=== PATIENT | female | born 1950 | race Caucasian/White ===

== ENCOUNTER 2022-10-06 08:41 | Outpatient (RCR) | payer MEDICARE, OTHER, SELFPAY | END 2022-11-25 16:37 | disposition home or self-care (01) | LOC: PT 08:41 | PROVIDERS: PCP Family Medicine | DX: M17.12 Unilateral primary osteoarthritis, left knee (principal); M23.307 Other meniscus derangements, unspecified meniscus, left knee; M94.20 Chondromalacia, unspecified site; Z98.890 Other specified postprocedural states | CPT/HCPCS: 97110; 97112; 97140; 97161; 97530 ==

== ENCOUNTER 2022-12-02 09:06 | Outpatient (OUT) | payer MEDICARE, OTHER, SELFPAY ==
[2022-12-02 09:15] VITALS: BP 128/74; PULSE 76; RESP 18; TEMP 36.9; O2SAT 96
[2022-12-02 09:20] LABS: Calcium 9.2 mg/dL (8.5-10.1); Estimated GFR (African America >60 (>=60); Estimated GFR (Non-African Ame >60 (>=60)
[2022-12-02] MEDS: DENOSUMAB 60 MG/ML SYRINGE SUBQ (09:38)
--- NOTE | 2022-12-02 09:42 | PC.NURSE ---
Patient is here for Prolia injection, she had her labs drawn which were WNL. She denies any issues or concerns, she tolerated injection well. She was discharged home.
== END 2022-12-02 09:07 | disposition home or self-care (01) ==
LOC: INF 09:06
PROVIDERS: PCP Family Medicine; Visit Provider Family Medicine
DX: M81.0 Age-related osteoporosis without current pathological fracture (principal)
CPT/HCPCS: 36415; 82310; 82565; 96372; J0897

== ENCOUNTER 2023-06-14 13:30 | Outpatient (OUT) | payer MEDICARE, OTHER, SELFPAY ==
[2023-06-14 14:33] LABS: Bilirubin Urine NEGATIVE (NEGATIVE); Blood Urine NEGATIVE (NEGATIVE); Clarity Urine CLEAR (CLEAR); Color Urine LT. YELLOW (YELLOW); Glucose Urine UA NEGATIVE (NEGATIVE); Ketones Urine NEGATIVE (NEGATIVE); Leukocyte Esterase Urine TRACE (NEGATIVE); Nitrite Urine NEGATIVE (NEGATIVE); Protein Urine NEGATIVE (NEG/TRACE); Urobilinogen Urine 0.2 EU/dL (0.2-1.0); pH Urine 6.5 (5.0-9.0)
[2023-06-14 14:43] LABS: RBC Urine NONE SEEN #/HPF (0-2)
[2023-06-14 14:44] LABS: Bacteria Urine NONE SEEN #/HPF (NONE SEEN); Mucus Urine NONE SEEN (NONE SEEN); Squamous Epithelial Cell Urine FEW #/LPF (NONE/RARE); Urine Culture Indicated ALREADY ORDERED
== END 2023-06-14 13:31 | disposition home or self-care (01) ==
LOC: LAB 13:33
PROVIDERS: PCP Family Medicine; Visit Provider Family Medicine
DX: N39.0 Urinary tract infection, site not specified (principal)
CPT/HCPCS: 81001; 87086; 87150; 87186

== ENCOUNTER 2023-06-20 08:38 | Outpatient (OUT) | payer MEDICARE, OTHER, SELFPAY ==
--- OUTSIDE RECORDS SUMMARY | 2023-06-20 08:44 | XMS_ITS | CCD ---
Author Name Unknown Address [address] [facility] [address] [place] [address] Organization [employer] Care Team Providers Care Interactive Media Marketing Strategist Name Role Phone DOE VELEZ Attending Unavailable DOE VELEZ Admitting Unavailable ANDIE FORDE Referring Unavailable ANDIE FORDE Primary Care Unavailable Linda Hall Unavailable GOPIY ., DR CHAVES Primary Care Unavailable HOY ., DR CHAVES Attending Unavailable HOY ., DR CHAVES Admtejas Unavailable HOY ., DR CHAVES Consulting Unavailable HOY ., DR CHAVES Primary Care Unavailable PARUL FITZPATRICK Admitting Unavailable PARUL FITZPATRICK Attending Unavailable PARUL FITZPATRICK Consulting Unavailable HOY ., DR CHAVES Primary Care Unavailable HOY ., DR CHAVES Attending Unavailable HOY ., DR CHAVES Admitting Unavailable HOY ., DR CHAVES Consulting Unavailable EDERRONDAA Admitting Unavailable PARUL FITZPATRICK Attending Unavailable PARUL FITZPATRICK Consulting Unavailable HOY ., DR CHAVES Primary Care Unavailable HOY ., DR CHAVES Attending Unavailable HOY ., DR CHAVES Admitting Unavailable HOY ., DR CHAVES Consulting Unavailable HOY ., DR CHAVES Primary Care Unavailable HOY ., DR CHAVES Admitting Unavailable HOY ., DR CHAVES Attending Unavailable HOY ., DR CHAVES Consulting Unavailable HOY ., DR CHAVES Primary Care Unavailable GRICELDA, DR GRANT Miller Consulting Unavailable HOY ., DR CHAVES Primary Care Unavailable HOY ., DR CHAVES Admitting Unavailable HOY ., DR CHAVES Attending Unavailable HOY ., DR CHAVES Consulting Unavailable HOY ., DR CHAVES Primary Care Unavailable HOY ., DR CHAVES Admitting Unavailable HOY ., DR CHAVES Attending Unavailable HOY ., DR CHAVES Consulting Unavailable ZIEBER, DR GRANT Miller Consulting Unavailable HOY ., DR CHAVES Attending Unavailable HOY ., DR CHAVES Primary Care Unavailable HOY ., DR CHAVES Admitting Unavailable HOY ., DR CHAVES Consulting Unavailable [place], DR LISET Cuadra Consulting Unavailable HOY ., DR CHAVES Primary Care Unavailable HOY ., DR CHAVES Attending Unavailable HOY ., DR CHAVES Admitting Unavailable HOY ., DR CHAVES Consulting Unavailable HOY ., DR CHAVES Attending Unavailable HOY ., DR CHAVES Admitting Unavailable HOY ., DR CHAVES Consulting Unavailable HOY ., DR CHAVES Primary Care Unavailable KARASIK ., DR OWEN Admitting Unavailabl e HOY ., DR CHAVES Primary Care Unavailable KARASIK ., DR OWEN Attending Unavailabl e KARASIK ., DR OWEN Consulting Unavailabl e Emla, Tomás Unavailable PARUL FITZPATRICK Attending Unavailable ALGHOTHANI, ELEONORA Attending Unavailable ALGHOTHANI, ROSELIAD Attending Unavailable FRANK VILLARREAL E Attending Unavailable Elma, Tomás A Admitting Unavailable Hoy, Andie M Primary Care Unavailable Elma, Tomás A Attending Unavailable Elma, Tomás A Admitting Unavailable Hoy, Andie M Primary Care Unavailable Elma, Tomás A Attending Unavailable Elma, Tomás A Admitting Unavailable Hoy, Andie M Primary Care Unavailable Elma, Tomás A Attending Unavailable Hoy, Andie M Primary Care Unavailable Elma, Tomás A Admitting Unavailable Elma, Tomás A Attending Unavailable Allergies Allergy Classification Reported Allergen(s) Allergy Type Date of Onset Reaction(s) Facility Penicillins (antibiotic) (1 source) Penicillin Drug Allergy 1 [facility] Repository Tetracyclines (antibiotic) (1 source) Tetracyclines Drug Allergy 1 [facility] Repository (7 sources) Penicillin Drug Allergy Unknown [employer] Other (8 sources) Tetracycline; Translations: [TETRACYCLINE] Drug Allergy 2 [facility] Repository (2 sources) Penicillins; Translations: [PENICILLINS] Drug allergy (disorder) 4 [facility] Repository (1 source) Tetracycline Drug Allergy 4 [facility] Repository (1 source) Penicillins Drug allergy (disorder) 3 [facility] Repository (1 source) Tetracycline Drug Allergy 3 [facility] Medications Current Medications Medication Drug Class(es) Dates Sig (Normalized) Sig (Original) Aspirin (6 sources) Platelet Aggregation Inhibitor, Nonsteroidal Anti-inflammatory Drug Aspirin Active carvedilol 3.125 mg oral tablet (7 sources) alpha-Adrenergic Cesario, beta-Adrenergic Cesario take 1 tablet by mouth every twelve hours Coreg 3.125 MG 1 tablet with food Orally Twice a day for 30 day(s) Active Handicap placards as directed (5 sources) Start: 09-29-19 Handicap placards as directed as directed as directed as directed for 365 days Sep, Active hydroCHLOROthiazide (7 sources) Thiazide Diuretic hydroCHLOROthi azide Active Iron (6 sources) Iron Active Nitrofurantoin (7 sources) Nitrofuran Antibacterial Nitrofurantoin Activ e Omeprazole (7 sources) Proton Pump Inhibitor Omeprazole Active Vitamin D 1000 UNIT (7 sources) take 1 tablet by mouth once daily Vitamin D 1000 UNIT 1 tablet Orally Once a day for 30 day(s) Active Completed/Discontinued Medications Medication Drug Class(es) Dates Sig (Normalized) Sig (Original) acetaminophen 500 mg oral tablet (6 sources) Start: 09-06-2022 take 2 tablets by mouth every eight hours Acetaminophen 500 MG 2 tablets Orally Every 8 hours for 30 days August, Not-Taking clindamycin 300 mg oral capsule (9 sources) Lincosamide Antibacterial Start: 12-28-2022 take 2 capsules by mouth every hour Clindamycin HCl 300 MG 2 capsules Orally 1 hour prior to procedure for 1 day(s) Dec, Not-Taking Start: 09-09-2022 take 1 capsule by [facility] every twelve hours Clindamycin HCl 300 MG 1 capsule Orally every 12 hrs for 5 days August, Not-Taking cyclobenzaprine hydrochloride 10 mg oral tablet (6 sources) Muscle Relaxant Start: 09-06-2022 take 0.5-1 tablets by mouth every eight hours Cyclobenzaprine HCl 10 MG 1/2 to 1 tab Orally Every 8 hours for 14 days August, Not-Taking docusate sodium 100 mg oral capsule (6 sources) Start: 09-06-2022 take 1 capsule by mouth every twelve hours Colace 100 MG 1 capsule Orally Twice a day for 14 days August, Not-Taking doxycycline hyclate 100 mg oral tablet (6 sources) Tetracycline-class Drug Start: 09-06-2022 take 1 tablet by mouth every twelve hours Doxycycline Hyclate 100 MG 1 tablet Orally Twice a day for 7 days August, Not-Taking methylPREDNISolone 4 mg oral tablet (4 sources) Corticosteroid Start: 2022 Medrol 4 MG as directed Orally for 6 days Oct, Not-Taking oxyCODONE hydrochloride 5 mg oral tablet (6 sources) Opioid Agonist Start: 09-06-2022 take 1 tablet by mouth every four hours as needed for pain oxyCODONE HCl 5 MG 1 tablet Orally Every 4 hours, as needed for pain for 7 days August, Not-Taking traMADol hydrochloride 50 mg oral tablet (6 sources) Opioid Agonist Start: 09-06-2022 take 1 tablet by mouth every four to six hours traMADol HCl 50 MG 1 tablet Orally Every 4-6 hours August, Not-Taking Problems Active Problems Problem Classification Problem Date Documented Da te Episodic/Chronic Cardiac dysrhythmias (4 sources) Ventricular tachycardia; Translations: [VENTRICULAR TACHYCARDIA] Onset: 11-03-2021 Chronic Congestive heart failure; nonhypertensive (1 source) Unspecified diastolic (congestive) heart failure; Translations: [UNSPECIFIED DIASTOLIC HEART FAILURE] Onset: 11-18-2021 Chronic Disorders of lipid metabolism (3 sources) Hyperlipidemia, unspecified; Translations: [Hyperlipidemia] Onset: 10-06-2021 Chronic Essential hypertension (7 sources) Essential (primary) hypertension; Translations: [Hypertensive disorder] Onset: 10-06-2021 Chronic Fluid and electrolyte disorders (4 sources) Hypo-osmolality and hyponatremia; Translations: [HYPO-OSMOLALITY AND HYPONATREMIA] Onset: 08-19-2022 Episodic Heart valve disorders (1 source) Rheumatic tricuspid insufficiency; Translations: [RHEUMATIC TRICUSPID INSUFFICIENCY] Onset: 11-04-2021 Chronic Hypertension with complications and secondary hypertension (1 source) Hypertensive heart disease with heart failure; Translations: [HTN HEART DISEASE W/HEART FAIL] Onset: 11-18-2021 Chronic Joint disorders and dislocations; trauma-related (10 sources) Derangement of posterior horn of medial meniscus due to old tear or injury, left knee; Translations: [Degeneration of cartilage AND/OR meniscus of knee] Onset: 07-11-2022 Chronic Osteoarthritis (10 sources) Osteoarthritis of left knee joint; Translations: [Unilateral primary osteoarthritis, left knee] Chronic Osteoporosis (4 sources) Age-related osteoporosis without current pathological fracture; Translations: [AGE-REL OSTEOPOR W/O CURR PATH FX] Onset: 10-08-2021 Chronic Other bone disease and musculoskeletal deformities (3 sources) Chondromalacia, unspecified site Episodic Other connective tissue disease (4 sources) History of total knee arthroplasty; Translations: [Presence of left artificial knee joint] Chronic Other connective tissue disease (3 sources) Presence of left artificial knee joint Chronic Other connective tissue disease (3 sources) History of left total knee replacement; Translations: [Presence of left artificial knee joint] Chronic Other connective tissue disease (1 source) Synovial cyst of popliteal space [Vick], left knee; Translations: [SYNOVIAL CYST POP SPACE LEFT KNEE] Onset: 07-11-2022 Episodic Other ear and sense organ disorders (1 source) Impacted cerumen, right ear Episodic Other non-traumatic joint disorders (5 sources) Pain in left knee; Translations: [PAIN IN LEFT KNEE] Onset: 09-17-2021 Episodic Other upper respiratory infections (1 source) Acute sinusitis, unspecified Episodic Residual codes; unclassified (4 sources) Obstructive sleep apnea (adult) (pediatric); Translations: [OBSTRUCTIVE SLEEP APNEA] Onset: 10-04-2021 Chronic Residual codes; unclassified (1 source) Other specified postprocedural states Episodic Unclassified (2 sources) Cardiac Clearance Onset: 08-03-2022 Unclassified (1 source) Presence of left artificial knee joint; Translations: [Presence of left artificial knee joint] Onset: 02-27-2023 Unclassified (1 source) Unilateral primary osteoarthritis, left knee; Translations: [Unilateral primary osteoarthritis, left knee] Onset: 09-13-2022 Unclassified (1 source) Encounter for other preprocedural examination; Translations: [Encounter for other preprocedural examination] Onset: 08-24-2022 Unclassified (1 source) Encounter for preprocedural laboratory examination; Translations: [Encounter for preprocedural laboratory examination] Onset: 08-12-2022 Urinary tract infections (7 sources) Urinary tract infectious disease; Translations: [Urinary tract bacterial infections] Episodic Viral infection (1 source) Other viral agents as the cause of diseases classified elsewhere Episodic Past or Other Problems Problem Classification Problem Date Documented Da te Episodic/Chronic Deficiency and other anemia (1 source) Anemia, unspecified; Translations: [ANEMIA UNSPECIFIED] Onset: 10-06-2021 Episodic Diabetes mellitus without complication (1 source) Other abnormal glucose; Translations: [OTHER ABNORMAL GLUCOSE] Onset: 10-06-2021 Episodic Genitourinary symptoms and ill-defined conditions (4 sources) Frequency of micturition; Translations: [FREQUENCY OF MICTURITION] Onset: 04-11-2022 Episodic Headache; including migraine (1 source) Headache; including migraine Malaise and fatigue (4 sources) Other fatigue; Translations: [OTHER FATIGUE] Onset: 11-12-2021 Episodic Other bone disease and musculoskeletal deformities (5 sources) Other specified disorders of bone density and structure, unspecified site; Translations: [OTH D/O BONE DEN STRUCT UNS SITE] Onset: 09-17-2021 Episodic Other disorders of stomach and duodenum (1 source) Functional dyspepsia; Translations: [FUNCTIONAL DYSPEPSIA] Onset: 10-06-2021 Episodic Other gastrointestinal disorders (4 sources) Diarrhea, unspecified; Translations: [DIARRHEA UNSPECIFIED] Onset: 02-02-2022 Episodic Other screening for suspected conditions (not mental disorders or infectious disease) (1 source) Encounter for screening mammogram for malignant neoplasm of breast; Translations: [ENC SCR MAMMO MALIG NEOPLASM BREAST] Onset: 09-17-2021 Episodic Syncope (1 source) Syncope and collapse; Translations: [SYNCOPE AND COLLAPSE] Onset: 10-06-2021 Episodic Results Test Name Value Interpretation Reference Range Facility XR knee LT 2Von 02-27-2023 XR knee LT [address]V [facility] [place] [address] XRay Report Signed Patient: Glenis Perez MR#: [id number] 42 : 1950 Acct:[id number] Age/Sex: 72 / F ADM Date: 02/27/23 Loc: [facility] Room: Type: [facility] CLI Attending Dr: Tomás Wills DO Copies to: Tomás Wills DO Ordering Provider: Tomás Wills DO Date of Service: 02/27/23 XR/XR knee LT 2V: Status post total left knee replacement 2 views LEFT knee plain film COMPARISON: 09/13/22 HISTORY: Status post LEFT total knee arthroplasty ACUTE FINDINGS: None DEGENERATIVE CHANGE: Unremarkable SOFT TISSUE FINDINGS: Unremarkable JOINT EFFUSION: None POSTOP CHANGES: Stable hardware BONE MINERALIZATION: Adequate XR/XR knee LT 2V IMPRESSION: Uncomplicated LEFT knee arthroplasty Impression dictated by: Raúl Woo M.D.02/27/2023 3:08 PM Dictation Location: [place] [address] Transcribed By: [facility] 02/27/23 1508 Dictated By: Raúl Woo DO 02/27/23 1508 Signed By: 02/27/23 1508 Normal [facility] XR knee LT 2V [facility] [employer] Other XR knee LT 2V [facility] [employer] Other XR knee LT 2V [address] [place] [address] [employer] Other XR knee LT 2V [address] [employer] Other XR knee LT 2V XRay Report [employer] Other XR knee LT 2V Signed [employer] Other XR knee LT 2V Patient: Glenis Perez MR#: [id number] [place] [employer] Other XR knee LT 2V [address] [place] [employer] Other XR knee LT 2V : 1950 Acct:[id number] [place] [employer] Other XR knee LT 2V Age/Sex: 72 / F ADM Date: 02/27/23 [place] [employer] Other XR knee LT 2V Loc: [facility] Room: Type : [facility] [employer] Other XR knee LT 2V Attending Dr: Tomás Wills DO [place] [employer] Other XR knee LT 2V Copies to: Tomás Wills DO [employer] Other XR knee LT 2V Ordering Provider: Tomás Wills DO [employer] Other XR knee LT 2V Date of Service: 02/27/23 [employer] Other XR knee LT 2V XR/XR knee LT 2V: Status post total left knee replacement [employer] Other XR knee LT 2V 2 views LEFT knee plain film [employer] Other XR knee LT 2V COMPARISON: 09/13/22 N [employer] Other XR knee LT 2V HISTORY: Status post LEFT total knee arthroplasty [employer] Other XR knee LT 2V ACUTE FINDINGS: None N [employer] Other XR knee LT 2V DEGENERATIVE CHANGE: Unremarkable [employer] Other XR knee LT 2V SOFT TISSUE FINDINGS : Unremarkable [employer] Other XR knee LT 2V JOINT EFFUSION: None N [employer] Other XR knee LT 2V POSTOP CHANGES: Stable hardware [employer] Other XR knee LT 2V BONE MINERALIZATION: Adequate [employer] Other XR knee LT 2V XR/XR knee LT 2V [employer] Other XR knee LT 2V IMPRESSION: Uncomplicated LEFT knee arthroplasty [employer] Other XR knee LT 2V Impression dictated by: Raúl Woo M.D.02/27/2023 3:08 PM [employer] Other XR knee LT 2V Dictation Location: [place] [address] [employer] Other XR knee LT 2V Transcribed By: [facility] 02/27/23 1500 [employer] Other XR knee LT 2V Dictated By: Raúl Woo DO 02/27/23 1501 [employer] Other XR knee LT 2V Signed By: [employer] Other XR knee LT 2V 02/27/23 1503 [employer] Other Office Visiton 01-04-2023 Follow-up visit [id number] Glenis Perez 1950 F Date Provider Department Center 01/04/2023 3848-ELEONORA HERNANDEZ CARD [facility] Family History Problem Relation Age of Onset Heart attack Mother Coronary artery disease Mother Other Brother Family Status - Relation Status Age at Mother Brother Level of Service:25472 [place] OFFICE/OUTPATIENT ESTABLISHED LOW MDM 20-29 MIN Normal [facility] [place] 09-13-2022 L - -------- Specimen: [id number] Received: 09/13/22 Status: LUZ Lynn Num: [id number] Spec Type: Surgical Subm Dr: Tomás Wills DO Tissues: A Joint/Knee (LT KNEE) Procedures: Gross/Micro L4, Decalcification -------- Age/ Patient Sex Location Account Attending Physician -------- Glenis Perez Ann 71/F [place] [id number] Tomás Wills DO -------- SPEC NUM: [id number] RECD: 09/13/22 STATUS: LUZ LYNN NUM: [id number] SETH: 09/13/[address] [facility] [address]: Tomás Wills DO ENTERED: 09/13/[address] [facility] [address]: ANDREW TYPE: Surgical DEPT: S ORDERED: Gross/Micro L4, Decalcification ORDERED: Gross/Micro L4, Decalcification Pathological Diagnosis Left knee, bone and tissue, total knee replacement: - Fragments of bone (gross evaluation only). Clinical Information DJD Gross Description Received in formalin labeled with the patient's name, number and left knee bone and tissue is a 13.5 x 11.5 x 2.7 cm aggregate of ballard-white bone and yellow-antony rubbery tissue. The bone fragments have smooth to granular ballard-locke articular surfaces with eburnation identified. The cut surface of the bone is yellow-ballard, trabecular. A gross photo is taken. Gross examination only. CPT Codes 77225 Gross Photo -------- -------- Specimen: [id number] Received: 09/13/22 Status: LUZ Lynn Num: [id number] Spec Type: Surgical Subm Dr: Tomás Wills DO Tissues: A Joint/Knee (LT KNEE) Procedures: Gross/Micro L4, Decalcification -------- Patient: Glenis Perez [id number] (Continued) -------- Signed (signature on file) Kendra Guzman MD 09/14/22 1033 Normal [facility] XR knee LT 2Von 09-13-2022 XR knee LT 2V [address] [address] XRay Report Signed Patient: Glenis Perez MR#: [id number] 40 : 1950 Acct:[id number] Age/Sex: 71 / F ADM Date: 09/13/22 Loc: [place] Room: Type: [facility] Attending Dr: Tomás Wills DO Copies to: Tomás Wills DO Ordering Provider: Tomás Wills DO Date of Service: 09/13/22 XR/XR knee LT 2V: Total or partial knee, do in PACU XR knee LT 2V 09/13/2022 7:41 AM SIGNS AND SYMPTOMS: Total or partial knee, do in PACU PROTOCOL: Frontal and lateral radiographs of the left knee COMPARISON: 06/22/2022 FINDINGS: There is total left knee arthroplasty hardware. There is no evidence of fracture or hardware complication. Subcutaneous emphysema is noted adjacent soft tissues. XR/XR knee LT 2V IMPRESSION: There is total left knee arthroplasty hardware. There is no evidence of fracture or hardware complication. Impression dictated by: Sameer Guy M.D.09/13/2022 3:01 PM Dictation Location: [place] [address] Transcribed By: [facility] 09/13/22 1501 Dictated By: Sameer Guy II, MD 09/13/22 1500 Signed By: 09/13/22 1501 [facility] PROF CHEM 8 (BAS METB)on Anion gap [Moles/Vol] 10.3 mmol/L Normal [facility] Comment on above: Performed By: #### B MP #### [facility] [address] [place] [address] Dr. Duong Alcaraz Calcium [Mass/Vol] 9.3 mg/dL Normal 8.5-10.1 [facility] Comment on above: Performed By: #### B MP #### [facility] [address] [place] [address] Dr. Duong Alcaraz Chloride [Moles/Vol] 95 mmol/L Critically low 98-107 [facility] Comment on above: Performed By: #### B MP #### [facility] [address] [place] [address] [address] Duong Alcaraz CO2 [Moles/Vol] 30.6 mmol/L Normal 21.0-32.0 [facility] Comment on above: Performed By: #### B MP #### [facility] [address] [place] [address] [address] Duong Alcaraz Creatinine [Mass/Vol] 0.69 mg/dL Normal 0.55-1.02 [facility] Comment on above: Performed By: #### B MP #### [facility] [address] [place] [address] [address] Duong Alcaraz EGFR-AF COMORAN >60 Normal >=60 [facility] Comment on above: Performed By: #### B MP #### [facility] [address] [place] [address] [address] Duong Alcaraz EGFR-NON AF COMORAN >60 Normal >=60 [facility] Comment on above: Performed By: #### B MP #### [facility] [address] [place] [address] [address] Duong Alcaraz Glucose [Mass/Vol] 83 mg/dL Normal 74-106 [facility] Comment on above: Performed By: #### B MP #### [facility] [address] [place] [address] [address] Duong Alcaraz Potassium [Moles/Vol] 3.9 mmol/L Normal 3.5-5.1 [facility] Comment on above: Performed By: #### B MP #### [facility] [address] [place] [address] Dr. Duong Alcaraz Sodium [Moles/Vol] 132 mmol/L Critically low 136-145 [facility] Comment on above: Performed By: #### B MP #### [facility] [address] [place] [address] [address] Duong Alcaraz Urea nitrogen [Mass/Vol] 12.0 mg/dL Normal 7.0-18.0 [facility] Comment on above: Performed By: #### B MP #### [facility] [address] [place] [address] [address] Duong Alcaraz Urea nitrogen/Creatinine [Mass ratio] 17.4 mg/mg Normal [facility] Comment on above: Performed By: #### B MP #### [facility] [address] [place] [address] Dr. Duong Alcaraz CMP with reflex to A1Con Albumin [Mass/Vol] 3.9 g/dL Normal 3.5-5.7 [facility] Comment on above: Performed By: #### C BC, CMP wRFX A1C #### [facility] [address] Albumin/Globulin [Mass ratio] 1.5 {ratio} Normal [facility] Comment on above: Performed By: #### C BC, CMP wRFX A1C #### [facility] [address] ALP [Catalytic activity/Vol] 34 U/L Normal 34-104 [facility] Comment on above: Result Comment: PERF ORMED BY: [place] [address] PATHOLOGIST OPERATOR ASSISTANT I CEMENTING YAMILETH PERRY M.D. Performed By: #### C BC, CMP wRFX A1C #### [facility] [address] ALT [Catalytic activity/Vol] 14 U/L Normal 7-52 [facility] Comment on above: Performed By: #### C BC, CMP wRFX A1C #### [facility] [address] Anion gap [Moles/Vol] 11.1 mmol/L Normal 6.0-15.0 [facility] Comment on above: Performed By: #### C BC, CMP wRFX A1C #### [facility] [address] AST [Catalytic activity/Vol] 18 U/L Normal 13-39 [facility] Comment on above: Performed By: #### C BC, CMP wRFX A1C #### [facility] [address] [place] [id number] [place] Bilirubin [Mass/Vol] 0.6 mg/dL Normal 0.3-1.0 [facility] Comment on above: Performed By: #### C BC, CMP wRFX A1C #### [facility] [address] [place] [id number] [facility] Calcium [Mass/Vol] 8.4 mg/dL Low 8.6-10.3 [facility] Comment on above: Performed By: #### C BC, CMP wRFX A1C #### [facility] [address] [place] [address] Chloride [Moles/Vol] 94 mmol/L Low 98-107 [facility] Comment on above: Performed By: #### C BC, CMP wRFX A1C #### [facility] [address] [place] [address] CO2 [Moles/Vol] 28.0 mmol/L Normal 21.0-31.0 [facility] Comment on above: Performed By: #### C BC, CMP wRFX A1C #### [address] Creatinine [Mass/Vol] 0.68 mg/dL Normal 0.60-1.20 [facility] Comment on above: Performed By: #### C BC, CMP wRFX A1C #### [place] [address] [place] GFR/1.73 sq M.predicted MDRD (S/P/Bld) [Vol rate/Area] mL/min/{1.73_m2} Normal [facility] Comment on above: Performed By: #### C BC, CMP wRFX A1C #### [address] Globulin (S) [Mass/Vol] 2.6 g/dL Normal [facility] Comment on above: Performed By: #### C BC, CMP wRFX A1C #### [address] Glucose [Mass/Vol] 88 mg/dL Normal 70-100 [facility] Comment on above: Performed By: #### C BC, CMP wRFX A1C #### [facility] [address] [place] [address] Potassium [Moles/Vol] 4.1 mmol/L Normal 3.5-5.1 [facility] Comment on above: Performed By: #### C BC, CMP wRFX A1C #### [facility] [address] [place] [address] Protein [Mass/Vol] 6.5 g/dL Normal 6.4-8.9 [facility] Comment on above: Performed By: #### C BC, CMP wRFX A1C #### [facility] [address] Sodium [Moles/Vol] 129 mmol/L Low 136-145 [facility] Comment on above: Performed By: #### C BC, CMP wRFX A1C #### [facility] [address] Urea nitrogen [Mass/Vol] 19 mg/dL Normal 7-25 [facility] Comment on above: Performed By: #### C BC, CMP wRFX A1C #### [facility] [address] Complete Blood Count Auto Di ffon 08-12-2022 Basophils (Bld) [#/Vol] 0.1 10*3/uL Normal 0.0-0.2 [facility] Comment on above: Result Comment: PERF ORMED BY: [place] [address] PATHOLOGIST OPERATOR ASSISTANT I CEMENTING YAMILETH PERRY M.D. Performed By: #### C BC, CMP wRFX A1C #### [place] [address] [place] Basophils/100 WBC (Bld) 1.3 % Normal . [facility] Comment on above: Performed By: #### C BC, CMP wRFX A1C #### [facility] [address] [place] [address] [place] Eosinophils (Bld) [#/Vol] 0.1 10*3/uL Normal 0.0-0.45 [facility] Comment on above: Performed By: #### C BC, CMP wRFX A1C #### [facility] [address] [place] [address] [place] Eosinophils/100 WBC (Bld) 1.6 % Normal . [facility] Comment on above: Performed By: #### C BC, CMP wRFX A1C #### [place] [address] Erythrocyte distribution width (RBC) [Ratio] 13.6 % Normal 11.9-15.3 [facility] Comment on above: Performed By: #### C BC, CMP wRFX A1C #### [address] Hematocrit (Bld) [Volume fraction] 35.9 % Normal 34.0-46.4 [facility] Comment on above: Performed By: #### C BC, CMP wRFX A1C #### [address] Hemoglobin (Bld) [Mass/Vol] 12.6 g/dL Normal 11.8-15.4 [facility] Comment on above: Performed By: #### C BC, CMP wRFX A1C #### [address] Lymphocytes (Bld) [#/Vol] 0.7 10*3/uL Low 1.00-4.8 [facility] Comment on above: Performed By: #### C BC, CMP wRFX A1C #### [address] Lymphocytes/100 WBC (Bld) 14.6 % Normal . [facility] Comment on above: Performed By: #### C BC, CMP wRFX A1C #### [address] MCH (RBC) [Entitic mass] 31.8 pg Normal 24.7-34.3 [facility] Comment on above: Performed By: #### C BC, CMP wRFX A1C #### [address] MCV (RBC) [Entitic vol] 90.7 fL Normal 80-100 [facility] Comment on above: Performed By: #### C BC, CMP wRFX A1C #### [address] Mean Corpuscular HGB Conc 35.0 g/dL Normal 32.0-35.0 [facility] Comment on above: Performed By: #### C BC, CMP wRFX A1C #### [facility] [address] [place] [address] [place] Monocytes (Bld) [#/Vol] 0.5 10*3/uL Normal 0.0-0.8 [facility] Comment on above: Performed By: #### C BC, CMP wRFX A1C #### [facility] [address] [place] [address] [place] Monocytes/100 WBC (Bld) 10.4 % Normal . [facility] Comment on above: Performed By: #### C BC, CMP wRFX A1C #### [facility] [address] [place] [address] [place] Neutrophils (Bld) [#/Vol] 3.7 10*3/uL Normal 1.8-7.7 [facility] Comment on above: Performed By: #### C BC, CMP wRFX A1C #### [facility] [address] [place] [address] Neutrophils/100 WBC (Bld) 72.1 % Normal . [facility] Comment on above: Performed By: #### C BC, CMP wRFX A1C #### [facility] [address] [place] [address] [place] NRBC% 0.0 /100{WBC} Normal 0-0.5 [facility] Comment on above: Performed By: #### C BC, CMP wRFX A1C #### [facility] [address] [place] [address] [place] Platelet mean volume (Bld) [Entitic vol] 6.2 fL Low 6.3-10.7 [facility] Comment on above: Performed By: #### C BC, CMP wRFX A1C #### [facility] [address] [place] [address] [place] Platelets (Bld) [#/Vol] 241 10*3/uL Normal 150-450 [facility] Comment on above: Performed By: #### C BC, CMP wRFX A1C #### [facility] [address] [place] [address] [place] RBC (Bld) [#/Vol] 3.96 10*6/uL Normal 3.60-5.00 [facility] Comment on above: Performed By: #### C BC, CMP wRFX A1C #### [facility] [address] [place] [address] [place] WBC (Bld) [#/Vol] 5.1 10*3/uL Normal 3.8-11.6 [facility] Comment on above: Performed By: #### C BC, CMP wRFX A1C #### [facility] [address] [place] [address] [place] Dipstick and Microscopicon 0 08-12-2022 Appearance (U) Clear Normal Clear [facility] Comment on above: Order Comment: Name Collection Type:: Clean-Voided Midstream Performed By: #### A DDONUAPLUS #### [place] [address] [place] Bacteria,Urine None Seen Normal None Seen [facility] Comment on above: Order Comment: Name Collection Type:: Clean-Voided Midstream Performed By: #### A DDONUAPLUS #### [place] [address] [place] Bilirubin,Urine Negative Normal Negative [facility] Comment on above: Order Comment: Name Collection Type:: Clean-Voided Midstream Performed By: #### A DDONUAPLUS #### [place] [address] [place] Color (U) Yellow Normal Yellow [facility] Comment on above: Order Comment: Name Collection Type:: Clean-Voided Midstream Performed By: #### A DDONUAPLUS #### [place] [address] [place] Glucose Ql (U) Normal Normal Normal [facility] Comment on above: Order Comment: Name Collection Type:: Clean-Voided Midstream Performed By: #### A DDONUAPLUS #### [place] [address] [place] Hyaline Casts,Urine None Seen Normal 0-8 [facility] Comment on above: Order Comment: Name Collection Type:: Clean-Voided Midstream Result Comment: PERF ORMED BY: [place] [address] PATHOLOGIST OPERATOR ASSISTANT I CEMENTING YAMILETH PERRY M.D. Performed By: #### A DDONUAPLUS #### [place] [address] [place] Ketones Ql (U) Negative Normal Negative [facility] Comment on above: Order Comment: Name Collection Type:: Clean-Voided Midstream Performed By: #### A DDONUAPLUS #### [place] [address] [place] Leukocyte esterase Test strip Ql (U) 3+ High Negative [facility] Comment on above: Order Comment: Name Collection Type:: Clean-Voided Midstream Performed By: #### A DDONUAPLUS #### [place] [address] [place] Nitrite,Urine Negative Normal Negative [facility] Comment on above: Order Comment: Name Collection Type:: Clean-Voided Midstream Performed By: #### A DDONUAPLUS #### [place] [address] [place] Occult Blood,Urine Negative Normal Negative [facility] Comment on above: Order Comment: Name Collection Type:: Clean-Voided Midstream Result Comment: PERF ORMED BY: [place] [address] PATHOLOGIST OPERATOR ASSISTANT I CEMENTING YAMILETH PERRY M.D. Performed By: #### A DDONUAPLUS #### [place] [address] [place] pH (U) 7.0 [pH] Normal 5.0-9.0 [facility] Comment on above: Order Comment: Name Collection Type:: Clean-Voided Midstream Performed By: #### A DDONUAPLUS #### [place] [address] [place] Protein,Urine Negative Normal Negative [facility] Comment on above: Order Comment: Name Collection Type:: Clean-Voided Midstream Performed By: #### A DDONUAPLUS #### [facility] [address] [place] [address] RBC LM.HPF (Urine sed) [#/Area] 0 /[HPF] Normal 0-4 [facility] Comment on above: Order Comment: Name Collection Type:: Clean-Voided Midstream Performed By: #### A DDONUAPLUS #### [facility] [address] [place] [address] Specificy [place],Urine 1.007 Normal 1.001-1.030 [facility] Comment on above: Order Comment: Name Collection Type:: Clean-Voided Midstream Performed By: #### A DDONUAPLUS #### [facility] [address] [place] [address] Squamous Epithelial Cell,Urine None Seen Normal 0-2 [facility] Comment on above: Order Comment: Name Collection Type:: Clean-Voided Midstream Performed By: #### A DDONUAPLUS #### [facility] [address] [place] [address] Urobilinogen,Urine Normal Normal Normal [facility] Comment on above: Order Comment: Name Collection Type:: Clean-Voided Midstream Performed By: #### A DDONUAPLUS #### [facility] [address] [place] [address] WBC,Urine 3-4 Normal 0-4 [facility] Comment on above: Order Comment: Name Collection Type:: Clean-Voided Midstream Performed By: #### A DDONUAPLUS #### [facility] [address] [place] [address] Office Visiton 08-03-2022 Follow-up visit [id number] Glenis Perez 1950 F Date Provider Department Center 08/03/2022 Jill-PARUL FITZPATRICK Family History Problem Relation Age of Onset Heart attack Mother Coronary artery disease Mother Other Brother Family Status - Relation Status Age at Mother Brother Level of Service:[address] [place] OFFICE/OUTPATIENT ESTABLISHED MOD MDM 30-39 MIN Reason for Visit and Comments: Follow-up [702149] - 4 months Cardiac Clearance [Other] - Left knee replacement scheduled for 08/30/22 Normal [facility] MRI KNEE LT WO CONon 07-04-2 023 MRI KNEE LT WO CON EXAMINATION: MRI KNE E LT WO CON HISTORY: Pain in left knee ; chronic COMPARISON: No relevant comparison available. TECHNIQUE: A complete multi-planar MRI was performed. FINDINGS: MEDIAL COMPARTMENT MEDIAL MENISCUS: Undersurface tear involving posterior horn and junction with slight maceration of the posterior horn. The body meniscus is extruded from the joint space resulting in narrowing of the joint space. CARTILAGE: Thinning with suspected focal defect overlying the weightbearing surface of femoral condyle resulting in mild subchondral edema. BONES: Small degenerative osteophytes along the outer articular margins of the femoral condyle and tibial plateau. MCL AND MEDIAL CAPSULE: Grade I sprain of the medial collateral ligament. LATERAL COMPARTMENT LATERAL MENISCUS: Body meniscus is extruded from the joint space. Anterior junction and horn are not visible. CARTILAGE: Thinning without focal defect. BONES: Small degenerative osteophytes along the articular margins of femoral condyle and tibial plateau. LCL/POSTEROLAT COMPLEX: Normal lateral collateral ligament, fascicles, lateral capsule and ligaments. ANTERIOR COMPARTMENT PATELLA: Small periarticular osteophytes. CARTILAGE: Moderate thinning without focal defect. TENDONS: Normal. EFFUSION: Small joint effusion. ACL: Normal appearing ligament. PCL: Normal appearing ligament. MENISCOFEMORAL: Normal meniscofemoral ligaments. OTHER: Large Vick's cyst, 8.4 x 3.3 x 2.3 cm. IMPRESSION: 1. Prominent undersurface tear of the medial meniscus posterior horn and junction with slight maceration of the posterior horn. 2. Complete loss of the anterior horn and anterior junction of the lateral meniscus, with relatively unremarkable body and posterior horn. 3. 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 4. Small joint effusion. 5. Large Vick's cyst. Electronically authenticated by: GRANT ORTEGA Date: 2022-07-04 12:13 Normal [facility] Office Visiton 05-04-2022 Follow-up visit [id number] Glenis Perez 1950 F Date Provider Department Center 05/04/2022 3848-ELEONORA HERNANDEZ [facility] Family History Problem Relation Age of Onset Heart attack Mother Coronary artery disease Mother Other Brother Family Status - Relation Status Age at Mother Brother Level of Service:42837 [place] OFFICE/OUTPATIENT ESTABLISHED LOW MDM 20-29 MIN Reason for Visit and Comments: Hypertension [877392] NSVT [Other] Hyperlipidemia [182] Normal [facility] COVID/FLU/RSV RT-PCRon 04-22 SARS-CoV-2 (COVID-19) RNA CASH+probe Ql (Unsp spec) Negative Single Digits [facility] [employer] Other COVID/FLU/RSV RT-PCR Negative [employer] Other CULTURE URINEon 04-14-2022 CULTURE URINE Isolate 1 Escherichia coli 25,000 cfu/mL of ORGANISM 1 Escherichia coli ANTIBIOTIC M.I.C RX STATUS Ampicillin <=2 S F Ampicillin/Sulbactam <=2 S F Piperacillin/Tazobact am <=4 S F Cefazolin <=4 S F Ceftazidime <=1 S F Ceftriaxone <=1 S F Ertapenem <=0.5 S F Imipenem <=0.25 S F Amikacin <=2 S F Gentamicin <=1 S F Tobramycin <=1 S F Ciprofloxacin <=0.25 S F Levofloxacin <=0.12 S F Nitrofurantoin <=16 S F Trimethoprim/Sulfamet hoxazole <=20 S F Normal [facility] Comment on above: Performed By: #### U RCX ####[facility] [address] [place] [address]Dr. Duong Alcaraz CALCIUMon 04-01-2022 Calcium [Mass/Vol] 9.4 mg/dL Normal 8.5-10.1 [facility] Comment on above: Performed By: #### C A, CREA ####[facility] [address] [address]Dr. Duong Alcaraz CREATININEon 04-01-2022 Creatinine [Mass/Vol] 0.73 mg/dL Normal 0.55-1.02 [facility] Comment on above: Performed By: #### C A, CREA ####[facility] [address] [place] [address]Dr. Duong Alcaraz EGFR-AF COMORAN >60 Normal >=60 [facility] Comment on above: Performed By: #### C A, CREA ####[facility] [address] [place] [address]Dr. Duong Alcaraz EGFR-NON AF COMORAN >60 Normal >=60 [facility] Comment on above: Performed By: #### C A, CREA ####[facility] [address] [place] [address]Dr. Duong Alcaraz PROF CHEM 8 (BAS METB)on Anion gap [Moles/Vol] 12.5 mmol/L Normal [facility] Comment on above: Performed By: #### B MP #### [facility] [address] [address] [address] Duong Alcaraz Calcium [Mass/Vol] 8.8 mg/dL Normal 8.5-10.1 [facility] Comment on above: Performed By: #### B MP #### [facility] [address] [place] [address] [address] Duong Alcaraz Chloride [Moles/Vol] 95 mmol/L Critically low 98-107 [facility] Comment on above: Performed By: #### B MP #### [facility] [address] [address] [address] Duong Alcaraz CO2 [Moles/Vol] 27.3 mmol/L Normal 21.0-32.0 [facility] Comment on above: Performed By: #### B MP #### [facility] [address] [address] [address] Duong Alcaraz Creatinine [Mass/Vol] 0.68 mg/dL Normal 0.55-1.02 [facility] Comment on above: Performed By: #### B MP #### [facility] [address] [address] [address] Duong Alcaraz EGFR-AF COMORAN >60 Normal >=60 [facility] Comment on above: Performed By: #### B MP #### [facility] [address] [address] [address] Duong Alcaraz EGFR-NON AF COMORAN >60 Normal >=60 [facility] Comment on above: Performed By: #### B MP #### [facility] [address] [address] [address] Duong Alcaraz Glucose [Mass/Vol] 98 mg/dL Normal 74-106 [facility] Comment on above: Performed By: #### B MP #### [facility] [address] [address] [address] Duong Alcaraz Potassium [Moles/Vol] 3.8 mmol/L Normal 3.5-5.1 [facility] Comment on above: Performed By: #### B MP #### [facility] [address] [address] [address] Duong Alcaraz Sodium [Moles/Vol] 131 mmol/L Critically low 136-145 [facility] Comment on above: Performed By: #### B MP #### [facility] [address] [place] [address] Dr. Duong Alcaraz Urea nitrogen [Mass/Vol] 14.0 mg/dL Normal 7.0-18.0 [facility] Comment on above: Performed By: #### B MP #### [facility] [address] [place] [address] Dr. Duong Alcaraz Urea nitrogen/Creatinine [Mass ratio] 20.6 mg/mg Normal [facility] Comment on above: Performed By: #### B MP #### [facility] [address] [place] [address] Dr. Duong Alcaraz BNPon 11-12-2021 Natriuretic peptide B (Bld) [Mass/Vol] 151.0 pg/mL Normal <=900.0 [facility] Comment on above: Performed By: #### C MP, BNP #### [facility] [address] [place] [address] Dr. Duong Alcaraz CBC AUTO DIFFon 11-12-2021 BASO # 0.1 103/ul Normal 0.0-0.1 [facility] Comment on above: Performed By: #### C BC ####[facility] [address] [place] [address]Dr. Duong Alcaraz Basophils/100 WBC (Bld) 1.3 % Normal 0.2-2.0 [facility] Comment on above: Performed By: #### C BC ####[facility] [address] [place], [place] [address]Dr. Duong Alcaraz EO # 0.2 103/ul Normal 0.0-0.7 [facility] Comment on above: Performed By: #### C BC ####[facility] [address] [place], [place] [address]Dr. Duong Alcaraz Eosinophils/100 WBC (Bld) 4.4 % Normal 0.9-7.0 [facility] Comment on above: Performed By: #### C BC ####[facility] [address] [place], [place] [address]Dr. Duong Alcaraz Erythrocyte distribution width (RBC) [Ratio] 12.3 % Normal 11.0-15.0 [facility] Comment on above: Performed By: #### C BC ####[facility] [address] [place], [place] [address]Dr. Duong Alcaraz Hematocrit (Bld) [Volume fraction] 36.4 % Normal 36.0-48.0 [facility] Comment on above: Performed By: #### C BC ####[facility] [address] [place], [place] [address]Dr. Selenastevo Alcaraz Hemoglobin (Bld) [Mass/Vol] 12.8 g/dL Normal 12.0-16.0 [facility] Comment on above: Performed By: #### C BC ####[facility] [address] [place], [place] [address]Dr. Duong Alcaraz IG # 0.02 10e3/ul Normal 0.00-0.03 [facility] Comment on above: Performed By: #### C BC ####[facility] [address] [place], [place] [address]Dr. Duong Alcaraz IG % 0.5 % Normal 0.0-0.5 [facility] Comment on above: Performed By: #### C BC ####[facility] [address] [place], [place] [address]Dr. Duong Alcaraz LYMPH # 0.8 103/ul Critically low 1.2-3.8 [facility] Comment on above: Performed By: #### C BC ####[facility] [address] [place] [address]DrClovis Alcaraz Lymphocytes/100 WBC (Bld) 19.5 % Critically low 20.5-60.0 [facility] Comment on above: Performed By: #### C BC ####[facility] [address] [place] [address]DrClovis Alcaraz MANUAL DIFF REQ NO Normal [facility] Comment on above: Performed By: #### C BC ####[facility] [address] [place] [address]DrClovis Alcaraz MCH (RBC) [Entitic mass] 31.7 pg Normal 26.7-34.0 [facility] Comment on above: Performed By: #### C BC ####[facility] [address] [place], [place] [address]DrClovis Alcaraz MCHC (RBC) [Mass/Vol] 35.2 g/dL Normal 29.9-35.2 [facility] Comment on above: Performed By: #### C BC ####[facility] [address] [place], [place] [address]DrClovis Alcaraz MCV (RBC) [Entitic vol] 90.1 fL Normal 81.0-99.0 [facility] Comment on above: Performed By: #### C BC ####[facility] [address] [place], [place] [address]DrClovis Alcaraz MONO # 0.5 103/ul Normal 0.3-0.8 [facility] Comment on above: Performed By: #### C BC ####[facility] [address] [place], [place] [address]DrClovis Alcaraz Monocytes/100 WBC (Bld) 12.3 % Critically high 1.7-12.0 [facility] Comment on above: Performed By: #### C BC ####[facility] [address] [place], [place] [address]DrClovis Alcaraz NEUT # 2.4 103/ul Normal 1.4-6.5 [facility] Comment on above: Performed By: #### C BC ####[facility] [address] [address]Dr. Duong Alcaraz Neutrophils/100 WBC (Bld) 62.0 % Normal 43.0-75.0 [facility] Comment on above: Performed By: #### C BC ####[facility] [address] [place] [id number] Alcaraz Platelet mean volume (Bld) [Entitic vol] 7.8 fL Critically low 9.5-13.5 [facility] Comment on above: Performed By: #### C BC ####[facility] [address] [place] [address]DrClovis Alcaraz PLT 183 103/ul Normal 150-450 [facility] Comment on above: Performed By: #### C BC ####[facility] [address] [place] [id number] Alcaraz RBC 4.04 106/ul Critically low 4.20-5.40 [facility] Comment on above: Performed By: #### C BC ####[facility] [address] [place] [id number] Alcaraz WBC 3.9 103/ul Critically low 4.0-11.0 [facility] Comment on above: Performed By: #### C BC ####[facility] [address] [place] [id number]. Duong Alcaraz PROF 14(COMP METB)on 022 Albumin [Mass/Vol] 3.4 g/dL Normal 3.4-5.0 [facility] Comment on above: Performed By: #### C MP, BNP #### [facility] [address] [address] [address] Duong Alcaraz Albumin/Globulin [Mass ratio] 0.9 {ratio} Normal [facility] Comment on above: Performed By: #### C MP, BNP #### [facility] [address] [address] [address] Duong Alcaraz ALP [Catalytic activity/Vol] 33 U/L Critically low 46-116 [facility] Comment on above: Performed By: #### C MP, BNP #### [facility] [address] [place] [address] Dr. Duong Alcaraz ALT [Catalytic activity/Vol] 21 U/L Normal 14-59 [facility] Comment on above: Performed By: #### C MP, BNP #### [facility] [address] [place] [address] Dr. Duong Alcaraz Anion gap [Moles/Vol] 8.0 mmol/L Normal [facility] Comment on above: Performed By: #### C MP, BNP #### [facility] [address] [place] [address] Dr. Duong Alcaraz AST [Catalytic activity/Vol] 26 U/L Normal 15-37 [facility] Comment on above: Performed By: #### C MP, BNP #### [facility] [address] [place] [address] Dr. Duong Alcaraz Bilirubin [Mass/Vol] 0.6 mg/dL Normal 0.2-1.0 [facility] [place] Comment on above: Performed By: #### C MP, BNP #### [facility] [address] [place] [address] Dr. Duong Alcaraz Calcium [Mass/Vol] 8.8 mg/dL Normal 8.5-10.1 [facility] Comment on above: Performed By: #### C MP, BNP #### [facility] [address] [place] [address] Dr. Duong Alcaraz Chloride [Moles/Vol] 98 mmol/L Normal 98-107 [facility] [place] Comment on above: Performed By: #### C MP, BNP #### [facility] [address] [place] [address] Dr. Duong Alcaraz CO2 [Moles/Vol] 29.7 mmol/L Normal 21.0-32.0 [facility] Comment on above: Performed By: #### C MP, BNP #### [facility] [address] [place] [address] Dr. Duong Alcaraz Creatinine [Mass/Vol] 0.71 mg/dL Normal 0.55-1.02 [facility] [place] Comment on above: Performed By: #### C MP, BNP #### [facility] [address] [place] [address] Dr. Duong Alcaraz EGFR-AF COMORAN >60 Normal >=60 [facility] Comment on above: Performed By: #### C MP, BNP #### [facility] [address] [address] [address] Duong Alcaraz EGFR-NON AF COMORAN >60 Normal >=60 [facility] [place] Comment on above: Performed By: #### C MP, BNP #### [facility] [address] [place] [address] Dr. Duong Alcaraz Globulin (S) [Mass/Vol] 3.8 g/dL Normal [facility] [place] Comment on above: Performed By: #### C MP, BNP #### [facility] [address] [place] [address] Dr. Duong Alcaraz Glucose [Mass/Vol] 94 mg/dL Normal 74-106 [facility] Comment on above: Performed By: #### C MP, BNP #### [facility] [address] [place] [address] Dr. Duong Alcaraz Potassium [Moles/Vol] 3.7 mmol/L Normal 3.5-5.1 [facility] [place] Comment on above: Performed By: #### C MP, BNP #### [facility] [address] [place] [address] Dr. Duong Alcaraz Protein [Mass/Vol] 7.2 g/dL Normal 6.4-8.2 [facility] Comment on above: Performed By: #### C MP, BNP #### [facility] [address] [place] [address] Dr. Duong Alcaraz Sodium [Moles/Vol] 132 mmol/L Critically low 136-145 [facility] Comment on above: Performed By: #### C MP, BNP #### [facility] [address] [place] [address] Dr. Duong Alcaraz Urea nitrogen [Mass/Vol] 14.0 mg/dL Normal 7.0-18.0 [facility] [place] Comment on above: Performed By: #### C MP, BNP #### [facility] [address] [place], [place] [address] Dr. Duong Alcaraz Urea nitrogen/Creatinine [Mass ratio] 19.7 mg/mg Normal [facility] [place] Comment on above: Performed By: #### C MP, BNP #### [facility] [address] [place], [place] [address] Dr. Duong Alcaraz ECHOCARDIO M/2D COMPLETEon 0 11-03-2021 ECHOCARDIO M/2D COMPLETE Patient: GLENIS PEREZ Exam Date: 11/03/2021 : 1950 Gender:F Ordering : PARUL FITZPATRICK Admission #: [id number] Family : DR ANDIE FORDE . Order #: [id number] CLICK HERE TO VIEW EXAM ECHOCARDIOGRAM REPORT PROCEDURE: CARDIO PULMONARY ECHOCARDIO M/2D COMP INDICATIONS: Nonsustained ventricular tachycardia, RICK COMPARISON: None. DESCRIPTION: COMPLETE ECHOCARDIOGRAM Real-time transthoracic echocardiography with 2D, M-mode, spectral and color flow Doppler performed. QUALITY: Technical quality was good. No PVCs during exam. 63 155# 126/70 HR 70 LEFT VENTRICLE: Normal chamber size. Proximal septal hypertrophy (sigmoid septum). Global left ventricular systolic function is normal. No regional wall motion abnormality. LV EF: Visual estimation of left ventricular ejection fraction is 65%. DIASTOLIC: Diastolic function is indeterminate. ATRIAL SEPTUM: Intact atrial septum. The interatrial septum bows into the right atrium. LEFT ATRIUM: Severe dilatation. RIGHT ATRIUM: Normal chamber size. RIGHT VENTRICLE: Mild dilatation. Normal right ventricular systolic function. TRICUSPID VALVE: Normal mobility and thickness. Normal with mild regurgitation. No evidence of pulmonary hypertension. RVSP is 30 mmHg. MITRAL VALVE: Normal mobility and thickness. No evidence of mitral valve stenosis. Trivial mitral regurgitation. AORTIC VALVE: Normal trileaflet appearance. No evidence of aortic valve stenosis. No aortic regurgitation. AORTIC ROOT: Normal diameter and appearance. Ascending aorta is normal in size. Aortic arch is normal in size. PULMONIC VALVE: Normal thickness and mobility. No stenosis. Trivial regurgitation. PERICARDIUM: No evidence of pericardial effusion. IVC: Collapses with inspirations. IVC is normal in size. PLEURA: CONCLUSION: 1. Normal ventricular systolic function. LVEF is 65%. 2. Mild tricuspid regurgitation. 3. Severe left atrial dilatation. The interatrial septum bows to the right, suggestive of elevated left atrial pressure. 4. Normal right-sided pressures. Adult Echocardiography Procedure Report Left Ventricle Left Atrium Mitral Valve Right Ventricle Aorta Aortic Valve Peak Velocity (Antegrade Flow): 1.10 m/s AoV Area (Peak Hai): 2.90 cm2, 2.90 cm2 Peak Velocity(Antegrade Flow): 1.10 m/s Peak Gradient(Antegrade Flow): 4.80 mm[Hg] Tricuspid Valve Peak Velocity (Regurgitant Flow): 2.17 m/s, 2.61 m/s Peak Velocity: 0.42 m/s Pulmonic Valve PV Max Hai (0.6 - 0.9 m per sec): 0.93 m/s PV Max Gradient: 3.43 mm[Hg] Right Atrium Dictated by: Federico Riley M.D. on 11/03/2021 at 21:30 Approved by: Federico Riley M.D. on 11/03/2021 at 21:34 Normal [facility] BNPon 10-04-2021 Natriuretic peptide B (Bld) [Mass/Vol] 200.0 pg/mL Normal <=900.0 [facility] Comment on above: Performed By: #### B FREIGHT BREAKER, TSH, LIPID, CMP, T7 ####[facility] [id number] [place], [place] [address]DbDr. Duong Alcaraz CBC AUTO DIFFon 10-04-2021 BASO # 0.1 103/ul Normal 0.0-0.1 [facility] Comment on above: Performed By: #### C BC #### [facility] [address] [address] [address] Duong Alcaraz Basophils/100 WBC (Bld) 1.2 % Normal 0.2-2.0 [facility] Comment on above: Performed By: #### C BC #### [facility] [address] [address] [address] Duong Alcaraz EO # 0.1 103/ul Normal 0.0-0.7 [facility] Comment on above: Performed By: #### C BC #### [facility] [address] [place] [address] Dr. Duong Alcaraz Eosinophils/100 WBC (Bld) 2.8 % Normal 0.9-7.0 [facility] [place] Comment on above: Performed By: #### C BC #### [facility] [address] [place] [address] Dr. Duong Alcaraz Erythrocyte distribution width (RBC) [Ratio] 12.2 % Normal 11.0-15.0 [facility] [place] Comment on above: Performed By: #### C BC #### [facility] [address] [place] [address] Dr. Duong Alcaraz Hematocrit (Bld) [Volume fraction] 37.0 % Normal 36.0-48.0 [facility] [place] Comment on above: Performed By: #### C BC #### [facility] [address] [place] [address] Dr. Duong Alcaraz Hemoglobin (Bld) [Mass/Vol] 12.6 g/dL Normal 12.0-16.0 [facility] [place] Comment on above: Performed By: #### C BC #### [facility] [address] [place] [address] Dr. Duong Alcaraz IG # 0.03 10e3/ul Normal 0.00-0.03 [facility] [place] Comment on above: Performed By: #### C BC #### [facility] [address] [place] [address] Dr. Duong Alcaraz IG % 0.7 % Critically high 0.0-0.[address] [facility] Comment on above: Performed By: #### C BC #### [facility] [address] [place] [address] Dr. Duong Alcaraz LYMPH # 0.7 103/ul Critically low 1.2-3.8 [facility] Comment on above: Performed By: #### C BC #### [facility] [address] [place] [address] Dr. Duong Alcaraz Lymphocytes/100 WBC (Bld) 16.0 % Critically low 20.5-60.0 [facility] [place] Comment on above: Performed By: #### C BC #### [facility] [address] [place] [address] Dr. Duong Alcaraz MANUAL DIFF REQ NO Normal [facility] Comment on above: Performed By: #### C BC #### [facility] [address] [place] [address] Dr. Duong Alcaraz MCH (RBC) [Entitic mass] 31.4 pg Normal 26.7-34.0 [facility] [place] Comment on above: Performed By: #### C BC #### [facility] [address] [place] [address] Dr. Duong Alcaraz MCHC (RBC) [Mass/Vol] 34.1 g/dL Normal 29.9-35.2 [facility] [place] Comment on above: Performed By: #### C BC #### [facility] [address] [place] [address] Dr. Duong Alcaraz MCV (RBC) [Entitic vol] 92.3 fL Normal 81.0-99.0 [facility] [place] Comment on above: Performed By: #### C BC #### [facility] [address] [place] [address] Dr. Duong Alcaraz MONO # 0.5 103/ul Normal 0.3-0.8 [facility] [place] Comment on above: Performed By: #### C BC #### [facility] [address] [place] [address] Dr. Duong Alcaraz Monocytes/100 WBC (Bld) 11.5 % Normal 1.7-12.0 [facility] [place] Comment on above: Performed By: #### C BC #### [facility] [address] [place] [address] Dr. Duong Alcaraz NEUT # 2.9 103/ul Normal 1.4-6.5 [facility] Comment on above: Performed By: #### C BC #### [facility] [address] [place] [address] Dr. Duong Alcaraz Neutrophils/100 WBC (Bld) 67.8 % Normal 43.0-75.0 [facility] Comment on above: Performed By: #### C BC #### [facility] [address] [place], [place] [address] Dr. Duong Alcaraz Platelet mean volume (Bld) [Entitic vol] 8.2 fL Critically low 9.5-13.5 [facility] [place] Comment on above: Performed By: #### C BC #### [facility] [address] [id number] Duong Alcaraz PLT 191 103/ul Normal 150-450 [facility] [place] Comment on above: Performed By: #### C BC #### [facility] [address] [address] [address] Duong Alcaraz RBC 4.01 106/ul Critically low 4.20-5.40 [facility] Comment on above: Performed By: #### C BC #### [facility] [address] [address] [address] Duong Alcaraz WBC 4.3 103/ul Normal 4.0-11.0 [facility] [place] Comment on above: Performed By: #### C BC #### [facility] [address] [address] [address] Duong Alcaraz FREE THYROXINE INDEX T7on FTI 3.01 Normal 1.30-4.50 [facility] [place] Comment on above: Performed By: #### B FREIGHT BREAKER, TSH, LIPID, CMP, T7 ####[facility] [address] [place], [place] [address]ErDr. Duong Alcaraz T3U 35.0 % Normal 30.0-39.0 [facility] [place] Comment on above: Performed By: #### B FREIGHT BREAKER, TSH, LIPID, CMP, T7 ####[facility] [id number] [place], [place] [address]CbDr. Duong Alcaraz T4 [Mass/Vol] 8.60 ug/dL Normal 4.80-13.90 [facility] Comment on above: Performed By: #### B FREIGHT BREAKER, TSH, LIPID, CMP, T7 ####[facility] [id number] [place], [place] [address]BsDr. Duong Alcaraz GLYCOHEMOGLOBIN A1Con 2021 ADA RECOMMENDATION SEE BELOW Normal [facility] Comment on above: Result Comment: ADA RECOMMENDED LIMIT 4.0 - 6.0 ADA THERAPEUTIC TARGET < 7.0 ACTION SUGGESTED > 7.0 Performed By: #### A 1C #### [facility] [address] [address] [address] Duong Alcaraz Glucose [Mass/Vol] 108 mg/dL Normal [facility] Comment on above: Performed By: #### A 1C #### [facility] [address] [address] [address] Duong Alcaraz HbA1c (Bld) [Mass fraction] 5.4 % Normal 4.5-6.2 [facility] [place] Comment on above: Performed By: #### A 1C #### [facility] [address] [address] [address] Duong Alcaraz IRONon 10-04-2021 Iron [Mass/Vol] 93.0 ug/dL Normal 50.0-170.0 [facility] Comment on above: Performed By: #### I SHARRON ####[facility] [address] [place] [address]DrClovis Alcaraz LIPID PROFILEon 10-04-2021 CHOL-HDL RATIO NORM SEE BELOW Normal [facility] Comment on above: Result Comment: 3.3 - 4.4 LOW RISK 4.4 - 7.1 AVERAGE RISK 7.1 - 11.0 MODERATE RISK >11.0 HIGH RISK Performed By: #### B FREIGHT BREAKER, TSH, LIPID, CMP, T7 ####[facility] [id number] [place] [id number] Alcaraz Cholesterol [Mass/Vol] 182 mg/dL Normal <=200 [facility] [place] Comment on above: Performed By: #### B FREIGHT BREAKER, TSH, LIPID, CMP, T7 ####[facility] [id number] [place] [id number] Alcaraz Cholesterol in HDL [Mass/Vol] 69 mg/dL Critically high 40-60 [facility] [place] Comment on above: Performed By: #### B FREIGHT BREAKER, TSH, LIPID, CMP, T7 ####[facility] [id number] [place] [id number] Alcaraz Cholesterol in LDL [Mass/Vol] 107.6 mg/dL Normal [facility] [place] Comment on above: Performed By: #### B FREIGHT BREAKER, TSH, LIPID, CMP, T7 ####[facility] [address] [place] [id number]. Duong Alcaraz Cholesterol.total/C holesterol in HDL [Mass ratio] 2.6 {ratio} Normal [facility] Comment on above: Performed By: #### B FREIGHT BREAKER, TSH, LIPID, CMP, T7 ####[facility] [id number] [place] [id number]. Duong Alcaraz HDL NORMAL > or = 60 mg/dl - LO W CARDIOVASCULAR RISK <40 mg/dl - HIGH CARDIOVASCULAR RISK Normal [facility] Comment on above: Performed By: #### B FREIGHT BREAKER, TSH, LIPID, CMP, T7 ####[facility] [id number] [place] [address]Dr. Duong Alcaraz LDL CALC NORMAL SEE BELOW Normal [facility] Comment on above: Result Comment: <100 mg/dl OPTIMAL 100 - 129 mg/dl NEAR OR ABOVE OPTIMAL 130 - 159 mg/dl BORDERLINE HIGH 160 - 189 mg/dl HIGH >190 mg/dl VERY HIGH Performed By: #### B FREIGHT BREAKER, TSH, LIPID, CMP, T7 ####[facility] [id number] [place] [id number]. Duong Alcaraz Triglyceride [Mass/Vol] 27 mg/dL Normal <=150 [facility] Comment on above: Performed By: #### B FREIGHT BREAKER, TSH, LIPID, CMP, T7 ####[facility] [address] [place] [id number]. Duong Alcaraz VLDL CALC 5.4 mg/dL Normal [facility] Comment on above: Performed By: #### B FREIGHT BREAKER, TSH, LIPID, CMP, T7 ####[facility] [address] [place] [address]Dr. Duong Alcaraz PROF 14(COMP METB)on 022 Albumin [Mass/Vol] 3.5 g/dL Normal 3.4-5.0 [facility] Comment on above: Performed By: #### B FREIGHT BREAKER, TSH, LIPID, CMP, T7 #### [facility] [address] [place] [address] [address] Duong Alcaraz Albumin/Globulin [Mass ratio] 1.0 {ratio} Normal [facility] [place] Comment on above: Performed By: #### B FREIGHT BREAKER, TSH, LIPID, CMP, T7 #### [facility] [address] [address] [address] Duong Alcaraz ALP [Catalytic activity/Vol] 34 U/L Critically low 46-116 [facility] [place] Comment on above: Performed By: #### B FREIGHT BREAKER, TSH, LIPID, CMP, T7 #### [facility] [address] [place] [address] [address] Duong Alcaraz ALT [Catalytic activity/Vol] 22 U/L Normal 14-59 [facility] [place] Comment on above: Performed By: #### B FREIGHT BREAKER, TSH, LIPID, CMP, T7 #### [facility] [address] [place] [address] Dr. Duong Alcaraz Anion gap [Moles/Vol] 12.3 mmol/L Normal [facility] [place] Comment on above: Performed By: #### B FREIGHT BREAKER, TSH, LIPID, CMP, T7 #### [facility] [address] [place] [address] [address] Duong Alcaraz AST [Catalytic activity/Vol] 19 U/L Normal 15-37 [facility] [place] Comment on above: Performed By: #### B FREIGHT BREAKER, TSH, LIPID, CMP, T7 #### [facility] [address] [place] [address] [address] Duong Alcaraz Bilirubin [Mass/Vol] 0.6 mg/dL Normal 0.2-1.0 [facility] [place] Comment on above: Performed By: #### B FREIGHT BREAKER, TSH, LIPID, CMP, T7 #### [facility] [address] [place] [address] [address] Duong Alcaraz Calcium [Mass/Vol] 8.5 mg/dL Normal 8.5-10.1 [facility] Comment on above: Performed By: #### B FREIGHT BREAKER, TSH, LIPID, CMP, T7 #### [facility] [address] [place] [address] [address] Duong Alcaraz Chloride [Moles/Vol] 101 mmol/L Normal 98-107 [facility] [place] Comment on above: Performed By: #### B FREIGHT BREAKER, TSH, LIPID, CMP, T7 #### [facility] [address] [place] [address] [address] Duong Alcaraz CO2 [Moles/Vol] 25.3 mmol/L Normal 21.0-32.0 [facility] Comment on above: Performed By: #### B FREIGHT BREAKER, TSH, LIPID, CMP, T7 #### [facility] [address] [place] [address] [address] Duong Alcaraz Creatinine [Mass/Vol] 0.64 mg/dL Normal 0.55-1.02 [facility] [place] Comment on above: Performed By: #### B FREIGHT BREAKER, TSH, LIPID, CMP, T7 #### [facility] [address] [place] [address] Dr. Duong Alcaraz EGFR-AF COMORAN >60 Normal >=60 [facility] Comment on above: Performed By: #### B FREIGHT BREAKER, TSH, LIPID, CMP, T7 #### [facility] [address] [place] [address] Dr. Duong Alcaraz EGFR-NON AF COMORAN >60 Normal >=60 [facility] [place] Comment on above: Performed By: #### B FREIGHT BREAKER, TSH, LIPID, CMP, T7 #### [facility] [address] [place] [address] Dr. Duong Alcaraz Globulin (S) [Mass/Vol] 3.4 g/dL Normal [facility] [place] Comment on above: Performed By: #### B FREIGHT BREAKER, TSH, LIPID, CMP, T7 #### [facility] [address] [place] [address] Dr. Duong Alcaraz Glucose [Mass/Vol] 91 mg/dL Normal 74-106 [facility] Comment on above: Performed By: #### B FREIGHT BREAKER, TSH, LIPID, CMP, T7 #### [facility] [address] [place] [address] Dr. Duong Alcaraz Potassium [Moles/Vol] 4.6 mmol/L Normal 3.5-5.1 [facility] Comment on above: Performed By: #### B FREIGHT BREAKER, TSH, LIPID, CMP, T7 #### [facility] [address] [place] [address] [address] Duong Alcaraz Protein [Mass/Vol] 6.9 g/dL Normal 6.4-8.2 [facility] Comment on above: Performed By: #### B FREIGHT BREAKER, TSH, LIPID, CMP, T7 #### [facility] [address] [place] [address] [address] Duong Alcaraz Sodium [Moles/Vol] 134 mmol/L Critically low 136-145 [facility] Comment on above: Performed By: #### B FREIGHT BREAKER, TSH, LIPID, CMP, T7 #### [facility] [address] [place] [address] [address] Duong Alcaraz Urea nitrogen [Mass/Vol] 11.0 mg/dL Normal 7.0-18.0 [facility] [place] Comment on above: Performed By: #### B FREIGHT BREAKER, TSH, LIPID, CMP, T7 #### [facility] [address] [place] [address] [address] Duong Alcaraz Urea nitrogen/Creatinine [Mass ratio] 17.2 mg/mg Normal [facility] [place] Comment on above: Performed By: #### B FREIGHT BREAKER, TSH, LIPID, CMP, T7 #### [facility] [address] [place] [address] [address] Duong Alcaraz TSHon 10-04-2021 TSH 1.568 uIU/mL Normal 0.358-3.740 [facility] Comment on above: Performed By: #### B FREIGHT BREAKER, TSH, LIPID, CMP, T7 ####[facility] [address] [place] [address]Dr. Duong Alcaraz TSH RANGE SEE BELOW Normal [facility] Comment on above: Result Comment: <0.3 4 UIU/ml HYPERTHYROID 0.34-5.60 UIU/ml EUTHYROID >5.60 UIU/ml HYPOTHYROID Performed By: #### B FREIGHT BREAKER, TSH, LIPID, CMP, T7 ####[facility] [id number] [place] [id number]. Duong Alcaraz MG MAMM SCREEN 3D ALONSO CADon 09-15-2021 MG MAMM SCREEN 3D ALONSO CAD Patient: GLENIS PEREZ Exam Date: 09/15/2021 : 1950 Gender:F Ordering : DR ANDIE FORDE . Admission #: [id number] Family : Order #: [id number] CLICK HERE TO VIEW EXAM RADIOLOGY REPORT PROCEDURE: MAMMOGRAM SCREENING 3D BILATERAL CAD COMPARISON: MG MAMM SCREEN ALONSO W CAD, 02/08/2018. MG MAMM ALONSO SCRN W CAD DIG, 02/04/2016. MG MAMM ALONSO SCRN W CAD DIG, 03/20/2007. MG MAMM SCREEN ALONSO W CAD, 02/27/2019. INDICATIONS: Screening mammography Calculator Name NCI Breast Cancer Risk Assessment Tool 5 Year Breast Cancer Risk 1.60% Lifetime Breast Cancer Risk 4.10% Personal Breast Cancer No Personal Ovarian Cancer No Treatments None Family Cancers None LOCATION: [facility] BREAST COMPOSITION: Heterogeneously dense,which may obscure small masses. FINDINGS: DIAGNOSTIC CATEGORY 1--NEGATIVE. RIGHT BREAST: No significant suspicious finding. No significant change has occurred. LEFT BREAST: No significant suspicious finding. No significant change has occurred. RECOMMENDATIONS: ROUTINE MAMMOGRAM AND CLINICAL EVALUATION IN 12 MONTHS. PLEASE NOTE: A NORMAL MAMMOGRAM DOES NOT EXCLUDE THE POSSIBILITY OF BREAST CANCER. A CLINICALLY SUSPICIOUS PALPABLE LUMP SHOULD BE BIOPSIED. Dictated by: Grant Ortega M.D. on 09/15/2021 at 12:00 Approved by: Grant Ortega M.D. on 09/15/2021 at 15:08 Normal [facility] XR DEXA BONE DENSITYon 09-15 XR DEXA BONE DENSITY EXAMINATION: XR DEXA BONE DENSITY, 09/15/2021 8:24 AM EDT HISTORY: Osteoporosis COMPARISON: DEXA bone densitometry 02/08/2018 TECHNIQUE: Dual-energy X-ray absorptiometry (DEXA) bone density study performed for the axial skeleton. FINDINGS: SPINE ANALYSIS: Average bone mineral density is 1.082 g/cm2. T-score (standard deviation relative to young adult mean): -1.0 . +8.0% change since prior study. HIP ANALYSIS: Lowest bone mineral density is within the right femoral trochanter, 0.641 g/cm2. T-score (standard deviation relative to young adult mean): -1.8 . 5.1% positive change since prior study. IMPRESSION: World [employer] Classification: Osteopenia - Moderate Fracture Risk Electronically authenticated by: GRANT ORTEGA Date: 2021-09-15 08:58 Normal [facility] Cardiovascular Lab Reporton 11-12-2020 Cardiovascular Lab Report [facility] Patient Name: Glenis Perez [facility] MR #: [id number] Physician: Doe Velez, Department of M.D. Medicine Service Date: 11/11/2020 Division of Birthdate: 1950 Cardiology Room #: [facility] Cardiovascular Services [facility] [address] [facility]. [place] [address] Cardiovascular Laboratory Report CLINICAL PRESENTATION: The patient is a 70-year-old female with past medical history significant for hypertension, who was recently evaluated due to shortness of breath, palpitations, fatigue, and presyncope. She has ventricular bigeminy on EKG and had a Holter monitor, which shows significant frequency of ventricular bigeminy and possible short runs of NSVT. She had an exercise nuclear stress test, which she exercised almost 8 minutes and had normal myocardial perfusion. EKG showed ventricular bigeminy at rest and with exercise, but no evidence of sustained or nonsustained ventricular tachycardia. She now presents for coronary angiogram. FINAL IMPRESSION: 1. Coronary angiogram reveals no significant coronary artery disease. 2. 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 The significance of this finding is unclear. PLAN: Ongoing workup for the patient's symptoms of palpitations, shortness of breath, fatigue, and chest pain. At the current time, she has two major findings. First, she was noted to have frequent PVCs with ventricular bigeminy which appear symptomatic on Event monitor. 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 I will review with Electrophysiology and other Cardiology staff and decide if further evaluation is needed. The negative exercise stress test would speak against any clinical significance of the coronary fistula because I would expect either ischemia in the anterior territory or ventricular arrhythmia during exercise if the fistula was causing symptomatic problems. Nonetheless, ongoing evaluation will occur and I will see her in the office to readdress. ADDENDUM: after presenting this case at the Interventional cardiology conference, the consensus opinion was that given her age and negative stress test, the coronary fistula was most likely a benign finding and does not require closure. We will proceed with EP evaluation for frequent PVCs and ventricular bigeminy. PROCEDURES: Coronary angiogram, conscious sedation 49 minutes. INDICATION: Chest pain, shortness of breath, palpitations, ventricular bigeminy and frequent PVCs on EKG and Holter monitor. PROCEDURE DESCRIPTION: The patient was brought to cardiac catheterization lab in a fasting state. Informed written consent was obtained. She was prepped and draped in usual sterile fashion. A left wrist time-out was performed. Given Versed and fentanyl sedation. A 1% lidocaine infiltrated in the left radial artery. Using ultrasound guidance, a 6-Afghan Terumo Glidesheath slender was placed in the left radial artery. The radial anti-vasospasm cocktail of nitroglycerin 200 mcg and verapamil 2.5 mg was administered through the sheath. All catheter exchanges were made over the [employer] guidewire. A 5-Afghan JR4 used to engage the right coronary artery. A 5-Afghan JL4 used to engage the left main coronary artery. Coronary angiogram was performed in multiple orthogonal views using hand injection of contrast. At the end of procedure, all catheters and wires removed from the body. The left radial sheath was removed and TR band was applied to obtain hemostasis. There were no apparent complications. TOTAL CONTRAST: 35 mL. TOTAL CONSCIOUS SEDATION TIME: 49 minutes. TOTAL FLUOROSCOPY TIME: 4 minutes and 3 seconds, 0.3 Gy. CORONARY ANGIOGRAM: 1. Left main coronary artery: Patent. 2. Left anterior descending coronary artery: The LAD is a large vessel and gives rise to 1 major diagonal branch and multiple small diagonal branches. The LAD is patent. 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 There is somewhat sluggish flow in the LAD consistent with CONSTANTINE-2 flow. 3. Left circumflex coronary artery: Patent. 4. Right coronary artery: The RCA is a large vessel and is dominant. The RCA is patent. The PDA and MEENU are patent. Electronically Signed by: Doe Velez M.D. 11/17/2020 11:30 A Doe Velez M.D. Date Dict: 11/11/2020/12:52 P/Doe Velez M.D. Date Trans: 11/12/2020 05:34 Vinny/viri [id number] cc: Siddharth Nolasco MD Dept Of Cardiology [address] [facility] [address] Andie Forde M.D. [address], [facility] [id number] Parul Fitzpatrick, BIOSTATISTICS DIRECTOR [address] [facility] Mailstop [address] [facility] [address] Normal [facility] Formson 08-26-2020 Forms [id number]:127 Normal [facility] Physician Referralon 021 Physician Referral [id number]:127 Normal [facility] Ambulatory Clinical Summaryo n 08-25-2020 Ambulatory Clinical Summary {[id number]}CD:[id number] Normal [facility] Patient Educationon 08-26-19 Patient Education Urinary Tract Infection Urinary tract infections (UTIs) can develop anywhere along your urinary tract. Your urinary tract is your body's drainage system for removing wastes and extra water. Your urinary tract includes two kidneys, two ureters, a bladder, and a urethra. Your kidneys are a pair of guerrero-shaped organs. Each kidney is about the size of your fist. They are located below your ribs, one on each side of your spine. CAUSES Infections are caused by microbes, which are microscopic organisms, including fungi, viruses, and bacteria. These organisms are so small that they can only be seen through a microscope. Bacteria are the microbes that most commonly cause UTIs. SYMPTOMS Symptoms of UTIs may vary by age and gender of the patient and by the location of the infection. Symptoms in young women typically include a frequent and intense urge to urinate and a painful, burning feeling in the bladder or urethra during urination. Older women and men are more likely to be tired, shaky, and weak and have muscle aches and abdominal pain. A fever may mean the infection is in your kidneys. Other symptoms of a kidney infection include pain in your back or sides below the ribs, nausea, and vomiting. DIAGNOSIS To diagnose a UTI, your caregiver will ask you about your symptoms. Your caregiver also will ask to provide a urine sample. The urine sample will be tested for bacteria and white blood cells. White blood cells are made by your body to help fight infection. TREATMENT Typically, UTIs can be treated with medication. Because most UTIs are caused by a bacterial infection, they usually can be treated with the use of antibiotics. The choice of antibiotic and length of treatment depend on your symptoms and the type of bacteria causing your infection. HOME CARE INSTRUCTIONS ? If you were prescribed antibiotics, take them exactly as your caregiver instructs you. Finish the medication even if you feel better after you have only taken some of the medication. ? Drink enough water and fluids to keep your urine clear or pale yellow. ? Avoid caffeine, tea, and carbonated beverages. They tend to irritate your bladder. ? Empty your bladder often. Avoid holding urine for long periods of time. ? Empty your bladder before and after sexual intercourse. ? After a bowel movement, women should cleanse from front to back. Use each tissue only once. SEEK MEDICAL CARE IF: ? You have back pain. ? You develop a fever. ? Your symptoms do not begin to resolve within 3 days. SEEK IMMEDIATE MEDICAL CARE IF: ? You have severe back pain or lower abdominal pain. ? You develop chills. ? You have nausea or vomiting. ? You have continued burning or discomfort with urination. MAKE SURE YOU: ? Understand these instructions. ? Will watch your condition. ? Will get help right away if you are not doing well or get worse. Document Released: 01/18/2006 Document Revised: 10/09/2012 Document Reviewed: 05/18/2012 ExitCare? Patient Information ?2013 [employer]. [facility] Urology Office/Clinic Noteon 08-25-2020 Urology Office/Clinic Note Chief Complaint New patient cystocele This 69-year-old female is being scheduled for cystocele repair by her rug designer. 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 She is here today to make arrangements for cystoscopy with bilateral ureteral stent placement. I have reviewed the notes from her referring physician. HPI Staff New patient Glenis is a 69 y.o. female referred by Dr. Barbosa for cystocele. She has a history of uterovaginal prolapse done 11/10/14. She denies having infectious symptoms but today's UA shows trace-intact blood, positive nitrate, moderate blood. Dysuria: Denies Incomplete bladder emptying: More conscious of making sure she empties Hematuria: Denies Frequency: up to 5 xs a day Urgency: Denies Nocturia: Denies Stream: hesitancy Leaking: Denies Post void dripping: Denies Wearing pads/ Depends: Denies Urge incontinence:Denies Stress incontinence: On occasion Incontinence without Sensory Awareness: Denies Abdominal pain: Denies Flank pain: Denies Sexual complaints: _ History of Present Illness Reviewed UA, referral, and new pt. forms. There have been no associated fever, chills, flank pain or blood in the urine. Pt. denies any pain/burning with urination at this time. Review of Systems PHQ Score Initial Depression Screen Score: 0 ROS - Provider Constitutional: denies weight loss, denies hot flashes. Eyes: denies eye problems. Gastrointestinal: denies nausea, denies vomiting. Cardiovascular: denies chest pain or angina. Integumentary: no dryness Musculoskeletal: denies musculoskeletal symptoms. ENMT: denies otolaryngeal symptoms. Respiratory: no shortness of breath. Heme/Lymph: denies easy bleeding tendency, denies easy bruising tendency. Psychiatric: no confusion, no anxiety. Genitourinary: denies vaginal discharge, denies incontinence, denies dysuria, mild hematuria, denies urinary frequency, denies amenorrhea, denies menorrhagia, denies abnormal bleeding, denies pelvic pain, denies genital sores, and denies decreased libido. Physical Exam Vitals & Measurements BP: 110/60 HT: 160.0 cm HT: 160.02 cm WT: 75.6 kg WT: 75.57 kg BMI: 29.51 General Appearance: alert , no acute distress, well nourished, well developed female. Head: normocephalic . Eyes: normal orbit and globe. ENMT: normal examination of external ears. Chest: Lungs CTA, respirations non labored . Cardiovascular: regular rate and rhythm. Abdomen: soft, non distended, no tenderness, no mass or organomegaly, no hernia. Genitourinary: bladder nonpalpable, no flank tenderness. Lymph Nodes: unremarkable palpation of the cervical area. Skin: warm, dry, no bruising. Psychiatric: cooperative, affect appropriate for age, normal judgement, euthymic mood. Assessment/Plan This patient is being scheduled for cystocele repair. Double-J ureteral stent placement will be part of the procedure. The procedure, risks, alternatives and potential complications have been discussed with the patient. Informed consent has been obtained. Review of the urinalysis shows trace amount of blood 2+ leukocytes and positive nitrite. She likely has a mild cystitis although she has no symptoms. We will start her on Cipro 500 mg every 12 hours for the next 3 days. This should alleviate this mild cystitis. 1. Cystocele, midline (N81.11: Cystocele, midline) Pt. has upcoming cystocele repair with Dr. Barbosa on 09/30/2020 . Will schedule Cysto with JJ Stent Placement. The procedure risks, benefits, details, and treatment alternatives have been discussed. These include the need for additional procedures, bleeding, infection, injury to the ureter, moderate to severe bladder irritation from the stent (with frequent urination, urgency, urinary leakage), moderate flank discomfort, among others. Stent removal or changes may also be required in the future. Full informed consent has been obtained. Will order General anesthesia. Ordered: Urnls Dip Stick Auto w/o Microscopy POC [id number] Urology Procedure Order 2. UTI (urinary tract infection) (N39.0: Urinary tract infection, site not specified) UA today appears to be infected with positive nitrate. Will start pt. on Cipro 500mg bid, #6. Script sent to [facility] in [place]. Ordered: Urology Procedure Order 3. Microscopic hematuria (R31.29: Other microscopic hematuria) UA today - trace intact. Ordered: Urology Procedure Order Orders: ciprofloxacin, 500 mg = 1 tab(s), Oral, q12hr, X 3 day(s), # 6 tab(s), Refills(s) 0, Pharmacy: [facility] 1155, 160, cm, 08/25/20 11:31:00 EDT, Height/Length Dosing, 75.6, kg, 08/25/20 11:31:00 EDT, Weight Dosing I have reviewed the previous health record information and history for this pt. from Dr. Gonzalez. Follow-up With When Contact Information Carlos Alvarado MD, Dallin Malik, [facility] [address] [place] [id number]- Additional Instructions: Patient Education Urinary Tract Infection I, Negra [place] (more content not included)... [facility] Comment on above: Result Comment: Elec tronically Signed By: Carlos Alvarado MD, Dallin Malik\.br\Date and Time Signed: 08/25/20 13:08 EDT\.br\Electronically Co-Signed By: Negra Mccullough MA\.br\Date and Time Co-Signed: 08/25/20 11:50 EDT Vital Signs Date Time Vital Sign Value Performing Clinician Facility 02-27-2023 10:15-0500 Body height 161.29 cm Tomás Elma Other [facility] 11-28-2022 11:00-0400 Body height 161.29 cm Tomás Elma Other [facility] Other 11-28-2022 11:00-0400 Body mass index (BMI) [Ratio] 27.55 kg/m2 Tomás Elma Other [facility] Other 11-28-2022 11:00-0400 Body weight 71.67 kg Tomás Elma Other [facility] Other 09-28-2022 13:15-0400 Body height 161.29 cm Tomás Elma Other [facility] Other 09-28-2022 13:15-0400 Body mass index (BMI) [Ratio] 27.9 kg/m2 Tomás Elma Other [facility] Other 09-28-2022 13:15-0400 Body weight 72.58 kg Tomás Elma Other [facility] Other 04-22-2022 16:30-0500 Body height 161.29 cm Linda Hall Other [facility] Other 04-22-2022 16:30-0500 Body mass index (BMI) [Ratio] 27.02 kg/m2 Linda Rafael Other [facility] Other 04-22-2022 16:30-0500 Body temperature 96.4 [degF] Linda Hall Other [facility] Other 04-22-2022 16:30-0500 Body weight 70.31 kg Linda Hall Other [facility] Other 04-22-2022 16:30-0500 Respiratory rate 18 /min Linda Rafael Other [facility] Other 04-22-2022 16:30-0500 SaO2% (BldA) [Mass fraction] 98 % Linda Hall Other [facility] Other Encounters Encounter Date Encounter Type Care Provider Facility Start: 04-04-2023 End: 04-04-2023 ambulatory FRANK VILLARREAL Not Available Start: 02-27-2023 Office outpatient visit 15 minutes [facility] Start: 02-27-2023 End: 02-27-2023 ambulatory Tomás Wills [facility] Other Start: 01-18-2023 End: 01-18-2023 ambulatory Tomás Wills Other [facility] Other Start: 01-18-2023 Telephone encounter [facility] Start: 01-04-2023 End: 01-04-20[facility] Start: 12-28-2022 End: 12-28-2022 ambulatory Tomás Wills Other [facility] Other Start: 12-28-2022 Telephone encounter Tomás CHRISTENSEN [facility] Start: 11-28-2022 End: 11-28-2022 ambulatory Tomás Wills Other [facility] Other Start: 11-28-2022 Postop follow up vis it related to original px Tomás Elma [facility] Start: 09-28-2022 End: 09-28-2022 ambulatory Tomás Wills Other [facility] Other Start: 09-28-2022 Postop follow up vis it related to original px Tomás Elma [facility] Start: 09-23-2022 End: 09-23-2022 ambulatory Tomás Wills Other [facility] Other Start: 09-23-2022 Telephone encounter Tomás CHRISTENSEN G [facility] Start: 09-13-2022 End: 09-13-2022 ambulatory Andie Forde Facility:[facility] Start: 08-24-2022 End: 08-24-2022 ambulatory Tomás Wills Facility:[facility] Start: 08-19-2022 End: 08-20-[address] ADNIE FORDE . Facility:[facility] Start: 08-12-2022 End: 08-12-2022 ambulatory Tomás Wills Facility:[facility] Start: 08-03-2022 End: 08-03-2022 ambulatory PAR[facility] Start: 07-04-2022 End: 07-05-[address] ANDIE FORDE . Facility:[facility] Start: 06-22-2022 End: 06-23-[address] ANDIE FORDE . Facility:[facility] Start: 05-04-2022 End: 05-04-[address] [facility] Start: 04-22-2022 End: 04-22-2022 ambulatory Linda Hall Other [facility] [employer] Other Start: 04-22-2022 Office outpatient ne w 30 minutes Linda Hall [facility] Start: 04-11-2022 End: 04-11-[address] LEXIE BARBOSA . Facility:[facility] Start: 04-01-2022 End: 04-06-[address] ANDIE FORDE . Facility:[facility] Start: 02-02-2022 End: 02-02-[address] ANDIE FORDE . Facility:[facility] Start: 11-22-2021 End: 11-23-[address] ANDIE FORDE . Facility:[facility] Start: 11-12-2021 End: 11-13-[address] ANDIE FORDE . Facility:[facility] Start: 11-03-2021 End: 11-04-2021 ambulatory PARUL FITZPATRICK Facility:[facility] Start: 10-08-2021 End: 10-08-[address] ANDIE FORDE . Facility:[facility] Start: 10-04-2021 End: 10-05-[address] ANDIE FORDE . Facility:[facility] Start: 09-15-2021 End: 09-16-[address] ANDIE FORDE . Facility:[facility] Start: 11-11-2020 End: 11-12-2020 ambulatory DOE VELEZ Facility:[facility] Procedures Date Procedure Procedure Detail Performing Clinician Start: 08-03-2022 Follow-up visit Follow-up PARUL FITZPATRICK Payers Date Payer Category Payer Self-pay 1961 Medicare [id number] 1961 Unknown [id number] 1950 Unknown [id number] 2.16.8 [id number] 1948 Unknown [id number] 2.16.84 0.1.047996.3.579.2.593 1948 Unknown [id number] 2.16.84 0.1.578721.3.579.2.593 1948 Unknown [id number] 2.16.84 0.1.279018.3.579.2.593 1948 Unknown [id number] 2.16.84 0.1.799679.3.579.2.593 1948 Unknown [id number] 2.16.84 0.1.944537.3.579.2.593 1948 Unknown [id number] 2.16.84 0.1.411067.3.579.2.593 1948 Unknown [id number] 2.16.84 0.1.000611.3.579.2.593 1948 Unknown [id number] 2.16.84 0.1.321630.3.579.2.593 1948 Unknown [id number] 2.16.84 0.1.020687.3.579.2.593 1948 Unknown [id number] 2.16.84 0.1.506598.3.579.2.593 1948 Unknown [id number] 2.16.84 0.1.469394.3.579.2.593 1948 Unknown [id number] 2.16.84 0.1.411233.3.579.2.593 1948 Unknown [id number] 2.16.840 .1.241710.3.579.2.1259 Unknown [id number] 2.1 6.840.1.655822.19 Unknown [id number] 2.16.8 40.1.062147.3.579.2.531 Unknown [id number] 2.16.8 40.1.562175.3.579.2.531 Unknown [id number] 2.16.8 40.1.722001.3.579.2.531 Unknown [id number] 2.16.8 40.1.329271.3.579.2.531 Social History Date Type Detail Facility Sex Assigned At [facility] Other Clinical Notes 04-22-2022 to 02-27-2023 Note Date & Type Note Facility 02-27-2023 Evaluation note Encounter Date Diagnosis Assessment Notes Feb, Primary osteoarthritis of left knee (ICD-10 - M17.12) Glenis presents today about 6 months weeks s/p left total knee arthroplasty. They are doing well. Physical exam is benign with a healthy appearing wound and range of motion of 0-125. She can continue to advance activities as tolerated. I will plan to see her back at the 1 year anniversary as needed The patient has been involved in our cooperative treatment plan and agrees to move forward with treatment at this time. 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 She is progressing well from surgery. 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 Activity as tolerated. Call with questions/anuradha rns. Provided AAOS hand out on hip conditioning and IT band exercises. [facility] Other 09-13-2023 NotePatient here for 6 mo follow up hypertension, NSVT, and hyperlipidemia. Had left TKA after last apt and everything went well. She is doing great, as she denies chest pain, SOB, and palpitations. Review of Systems All other systems reviewed and are negative.[facility] 01-04-2023 [facility]Cardiovascular Medicine [place] [facility] SUBJECTIVE Glenis Perez is a 72 y.o. female here for follow-up. PMHx: NSVT, PVCs, HTN, varicose veins/phlebitis, osteoarthritis HPI Patient is doing well. She had her surgery without any cardiac issues. Patient adamantly denies any cardiac complaints or concerns. Patient denies any chest pain or shortness of breath. Patient denies any lower extremity edema, orthopnea, or proximal nocturnal dyspnea. No near-syncope or syncope. No dizziness or lightheadedness. 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 Cardiovascular: Negative for chest pain, dyspnea on exertion, irregular heartbeat, leg swelling, near-syncope, orthopnea, palpitations, paroxysmal nocturnal dyspnea and syncope. OBJECTIVE Visit Vitals BP 116/71 (BP Location: Left arm, Patient Position: Sitting) Pulse 62 Ht 1.6 m (5' 3 ) Wt 73.9 kg (163 lb) SpO2 95% BMI 28.87 kg/m??? Smoking Status Never BSA 1.81 m??? Medications: Current Outpatient Medications: aspirin 325 mg tablet, Take 1 tablet every day by oral route., Disp: , Rfl: carvedilol (Coreg) 12.5 mg tablet, Take 1 tablet (12.5 mg) by mouth with breakfast and with evening meal., Disp: 180 tablet, Rfl: 3 cetirizine (ZyrTEC) 10 mg tablet, Take 10 mg by mouth in the morning., Disp: , Rfl: cholecalciferol, vitamin D3, 50 mcg (2,000 unit) capsule, Take 1 capsule by mouth in the morning and at bedtime., Disp: , Rfl: denosumab (Prolia) 60 mg/mL syringe, Inject 60 mg under the skin 1 (one) time. EVERY 6 MONTHS, Disp: , Rfl: hydroCHLOROthiazide (Microzide) 12.5 mg capsule, Take 1 capsule (12.5 mg) by mouth in the morning., Disp: 90 capsule, Rfl: 3 melatonin tablet, Take 1 mg by mouth at bedtime., Disp: , Rfl: omeprazole (PriLOSEC) [address] capsule, Take 1 capsule by mouth in the morning., Disp: , Rfl: Physical Exam Vitals reviewed. Constitutional: Appearance: Normal appearance. She is normal weight. HENT: Head: Normocephalic and atraumatic. Right Ear: External ear normal. Left Ear: External ear normal. Eyes: Extraocular Movements: Extraocular movements intact. Conjunctiva/sclera: Conjunctivae normal. Pupils: Pupils are equal, round, and reactive to light. Neck: Vascular: No carotid bruit. Comments: No visible JVD Cardiovascular: Rate and Rhythm: Normal rate and regular rhythm. Pulses: Normal pulses. Heart sounds: Normal heart sounds. Pulmonary: Effort: Pulmonary effort is normal. Breath sounds: Normal breath sounds. Abdominal: General: Bowel sounds are normal. Palpations: Abdomen is soft. Musculoskeletal: Cervical back: Neck supple. Right lower leg: No edema. Left lower leg: No edema. Skin: General: Skin is warm and dry. Neurological: General: No focal deficit present. Mental Status: She is alert and oriented to person, place, and time. Psychiatric: Mood and Affect: Mood normal. Behavior: Behavior normal. Thought Content: Thought content normal. Judgment: Judgment normal. Labs: Legacy Encounter on 11/11/2020 Component Date Value Ref Range Status Ventricular Rate 11/11/2020 51 BPM Final Atrial Rate 11/11/2020 51 BPM Final KS Interval 11/11/2020 172 ms Final QRS DURATION 11/11/2020 86 ms Final QT Interval 11/11/2020 418 ms Final QTC CALCULATION(BAZETT) 11/11/2020 385 ms Final P [place] 11/11/2020 16 degrees Final R-[place] 11/11/2020 -12 degrees Final T Wave [place] 11/11/2020 19 degrees Final Diagnosis 11/11/2020 Final Value:Sinus bradycardia Moderate voltage criteria for LVH, may be normal variant Nonspecific ST abnormality Abnormal ECG No previous ECGs available Confirmed by Siddharth Nolasco ([id number]) on 11/11/2020 8:59:30 PM No results found for: EXTCMP, BMPR1A, CBCDIF, BNP, BNP, LASAP, RED Labs 11/12/21 CBC: hgb 12.8, plt 183, WBC 3.9 BMP: Cr. 0.71, BUN 14, K 3.7, Na 132, GFR >60 NTproBNP: 151 Labs 10/04/21 LFTs: AST 19, ALT 22 Lipids: chol 182, HDL 69, trig 27, LDL 107 NTproBNP: 200 TSH: 1.568 Hgb A1c: 5.4 Testing/Procedures: -Cardiac cath (11/11/2020): 1. Coronary angiogram reveals no significant coronary arter (more content not included)...[facility]09-06-2023 Evaluation note* Encounter Date Diagnosis Assessment Notes Treatment Notes Treatment Clinical Notes Dec, History of total left knee replacement (ICD-10 - Z96.652) [facility] Other 08-07-2023 Evaluation note* Encounter Date Diagnosis Assessment Notes Treatment Notes Treatment Clinical Notes Nov, Primary osteoarthritis of left knee (ICD-10 - M17.12) Glenis presents today about 12 weeks s/p left total knee arthroplasty. They are doing well. Physical exam is benign with a healthy appearing wound and range of motion of 0-125. She can continue to advance activities as tolerated. I will plan to see her back at the 6-month anniversary for x-rays The patient has been involved in our cooperative treatment plan and agrees to move forward with treatment at this time. Discussed with patient she can progress activity as tolerated. May progress to an at home physical therapy program. 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 They are doing well. Physical exam is benign with a healthy appearing wound and range of motion of 3-95. They are still taking pain medication but we did discuss the weaning process today. They are anticoagulated appropriately without any signs of deep vein thrombosis. We have given an order for outpatient therapy today. I will see them back at the 6-week anniversary from their surgery for reevaluation. No x-rays are needed at that time. The patient has been involved in our cooperative treatment plan and agrees to move forward with treatment at this time. Patient is progressing well. Continue physical therapy exercises and TKA precautions. Continue with medications as prescribed. Instructed patient to call with any questions or concerns. 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 Tires easily. Cardiovascular: Negative. Musculoskeletal: Positive for arthritis and joint pain. Left knee arthroscopy scheduled for 08/30/2022. Glenis is here for a routine 4 month follow up. She scheduled early due to needing clearance for left knee replacement on August 30. Dr. Linda orellana/ [facility], in [place]. She believes she will [facility] NoteCardiovascular Medicine [facility] SUBJECTIVE Chief Complaint Patient presents with Follow-up 4 months Cardiac Clearance Left knee replacement scheduled for 08/30/22 Glenis Perez is a 71 y.o. female here for follow-up and cardiac risk stratification. PMHx: NSVT, PVCs, HTN, varicose veins/phlebitis, osteoarthritis HPI She has been doing well since last seen. BP has been running upper 90s-110s/60-80s at home. She will be having a total left knee replacement next month, Dr. Mckeon with [facility] will be doing the surgery. She has some mild leg swelling, worse at the end of the day and better by the AM. She denies c/o CP, dyspnea at rest or exertion, orthopnea, PND, dizziness/LH, palpitations. 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 Cardiovascular: Negative for chest pain, dyspnea on exertion, irregular heartbeat, leg swelling, near-syncope, orthopnea, palpitations, paroxysmal nocturnal dyspnea and syncope. OBJECTIVE Visit Vitals BP 133/84 (BP Location: Left arm, Patient Position: Sitting) Pulse 58 Ht 1.6 m (5' 3 ) Wt 72.7 kg (160 lb 3.2 oz) SpO2 96% BMI 28.38 kg/m??? Smoking Status Never BSA 1.8 m??? Medications: Current Outpatient Medications: aspirin 325 mg tablet, Take 1 tablet every day by oral route., Disp: , Rfl: calcium carb/vitamin D3/vit K1 (SOFT CHEWS CALCIUM ORAL), Take 1 chewable tablet by mouth if needed., Disp: , Rfl: calcium citrate (Calcitrate) 200 mg (950 mg) tablet, Take 400 mg by mouth in the morning and at bedtime., Disp: , Rfl: carvedilol (Coreg) 12.5 mg tablet, Take 1 tablet (12.5 mg) by mouth with breakfast and with evening meal., Disp: 180 tablet, Rfl: 3 cetirizine (ZyrTEC) 10 mg tablet, Take 10 mg by mouth in the morning., Disp: , Rfl: denosumab (Prolia) 60 mg/mL syringe, Inject 60 mg under the skin 1 (one) time. EVERY 6 MONTHS, Disp: , Rfl: hydroCHLOROthiazide (Microzide) 12.5 mg capsule, Take 1 capsule (12.5 mg) by mouth in the morning., Disp: 90 capsule, Rfl: 3 omeprazole (PriLOSEC) [address] capsule, Take 1 capsule by mouth in the morning., Disp: , Rfl: cholecalciferol, vitamin D3, 50 mcg (2,000 unit) capsule, Take 1 capsule by mouth in the morning and at bedtime., Disp: , Rfl: melatonin tablet, Take 1 mg by mouth at bedtime., Disp: , Rfl: Physical Exam Vitals reviewed. Constitutional: Appearance: Normal appearance. She is normal weight. HENT: Head: Normocephalic and atraumatic. Right Ear: External ear normal. Left Ear: External ear normal. Eyes: Extraocular Movements: Extraocular movements intact. Conjunctiva/sclera: Conjunctivae normal. Pupils: Pupils are equal, round, and reactive to light. Neck: Vascular: No carotid bruit. Comments: No visible JVD Cardiovascular: Rate and Rhythm: Normal rate and regular rhythm. Pulses: Normal pulses. Heart sounds: Normal heart sounds. Pulmonary: Effort: Pulmonary effort is normal. Breath sounds: Normal breath sounds. Abdominal: General: Bowel sounds are normal. Palpations: Abdomen is soft. Musculoskeletal: Cervical back: Neck supple. Right lower leg: No edema. Left lower leg: No edema. Skin: General: Skin is warm and dry. Neurological: General: No focal deficit present. Mental Status: She is alert and oriented to person, place, and time. Psychiatric: Mood and Affect: Mood normal. Behavior: Behavior normal. Thought Content: Thought content normal. Judgment: Judgment normal. Labs: Legacy Encounter on 11/11/2020 Component Date Value Ref Range Status Ventricular Rate 11/11/2020 51 BPM Final Atrial Rate 11/11/2020 51 BPM Final KS Interval 11/11/2020 172 ms Final QRS DURATION 11/11/2020 86 ms Final QT Interval 11/11/2020 418 ms Final QTC CALCULATION(BAZETT) 11/11/2020 385 ms Final P [place] 11/11/2020 16 degrees Final R-[place] 11/11/2020 -12 degrees Final T Wave [place] 11/11/2020 19 degrees Final Diagnosis 11/11/2020 Final Value:Sinus bradycardia Moderate voltage criteria for LVH, may be normal variant Nonspecific ST abnormality Abnormal ECG No previous ECGs available Confirmed (more content not included)...[facility] 06-22-2022 NotePROCEDURE: XR KNEE LT 4V or > COMPARISON: 04/09/2021 HISTORY: Pain of left knee joint FINDINGS: BONES:No acute fracture or dislocation. 7 mm osteochondral injury medial femoral condyle. Tricompartmental osteoarthropathy most significant in the medial compartment SOFT TISSUES:Negative. No visible soft tissue swelling. EFFUSION:None visible. OTHER: Negative. IMPRESSION: Osteochondral injury medial femoral condyle Electronically authenticated by: LISET MEZA Date: 2022-06-22 17:46[facility]01-11[facility]2023 NoteSubjective Glenis Perez is a 71 y.o. female. Chief Complaint: Hypertension, NSVT, and Hyperlipidemia Patient is a 68-year-old female who is followed in our clinic for hypertension, hyperlipidemia, history of SVT. She presents today for follow-up. She states that she has been doing well. She denies any cardiac complaints or concerns. She had no denies any chest pain. No shortness of breath. No lower extremity edema, orthopnea, proximal nocturnal dyspnea. She denies any dizziness or lightheadedness. No palpitations. Review of Systems Ten point ROS is performed and is negative unless otherwise specified in HPI Objective BP 144/81 (BP Location: Right arm, Patient Position: Sitting) Pulse 59 Ht 1.6 m (5' 3 ) Wt 69.9 kg (154 lb) SpO2 98% BMI 27.28 kg/m??? Current Outpatient Medications on File Prior to Visit Medication Sig Dispense Refill aspirin 325 mg tablet Take 1 tablet every day by oral route. carvedilol (Coreg) 12.5 mg tablet Take 1 tablet (12.5 mg) by mouth with breakfast and with evening meal. 180 tablet 3 cetirizine (ZyrTEC) 10 mg tablet Take 10 mg by mouth in the morning. denosumab (Prolia) 60 mg/mL syringe Inject 60 mg under the skin 1 (one) time. EVERY 6 MONTHS hydroCHLOROthiazide (Microzide) 12.5 mg capsule Take 1 capsule (12.5 mg) by mouth in the morning. 90 capsule 3 melatonin tablet Take 1 mg by mouth at bedtime. omeprazole (PriLOSEC) [address] capsule Take 1 capsule by mouth in the morning. No current facility-administered medications on file prior to visit. Vitals and nursing note reviewed. Constitutional: Appearance: Healthy appearance. Not in distress. Eyes: Pupils: Pupils are equal, round, and reactive to light. Neck: Vascular: JVD normal. Pulmonary: Effort: Pulmonary effort is normal. Breath sounds: Normal breath sounds. Cardiovascular: Normal rate. Regular rhythm. S1 with normal intensity. S2 with normal intensity. Murmurs: There is no murmur. No gallop. No click. Pulses: Intact distal pulses. Edema: Peripheral edema absent. Abdominal: General: Bowel sounds are normal. Musculoskeletal: Cervical back: Normal range of motion and neck supple. Skin: General: Skin is warm and dry. Neurological: General: No focal deficit present. Mental Status: Alert and oriented to person, place and time. Lab/Test Review: Labs 11/12/21 CBC: hgb 12.8, plt 183, WBC 3.9 BMP: Cr. 0.71, BUN 14, K 3.7, Na 132, GFR >60 NTproBNP: 151 Labs 10/04/21 LFTs: AST 19, ALT 22 Lipids: chol 182, HDL 69, trig 27, LDL 107 NTproBNP: 200 TSH: 1.568 Hgb A1c: 5.4 -ECHO (11/03/21) 1. Normal ventricular systolic function, LVEF at 65% 2. Mild TR 3. Severe LA dilation. The interatrial septum bows to the right, suggestive of elevated left atrial pressure 4. Normal right sided pressures -EKG (11/11/20): sinus fidencio, HR 54, nonspecific ST changes -ECHO 10/15/20: EF 55-60%, biatrial enlargement, RV normal in size and function, mild to mod TR -Cardiac cath (11/11/2020): 1. Coronary angiogram reveals no significant coronary artery disease. 2. 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 Assessment/Plan #Hypertension -Blood pressure is much better controlled. It is 144/80 today in clinic -Continue carvedilol to 12.5mg BID and continue hydrochlorothiazide 12.5mg daily. -Continue monitoring blood pressure and maintaining daily blood pressure log #Nonsustained ventricular tachycardia -Cardiac cath 11/11/20: normal coronary arteries -NM Stress test 10/28/2020: no ischemia, normal perfusion scan. EF 80% -ECHO (11/03/21): 1. Normal ventricular systolic function, LVEF at 65% -Dr. Nolasco's, EP, recommendations: At the moment she has no PVC and has no symptoms. I have suggested that if there ar ea lot of PVC and RICK rx is not helping, then we can consider ablative approach. The rationale for chasing PVC is symptoms/ NSVT alone as she has no CMP. -She denies any sx's. -Continue carvedilol. #Obstructive sleep apnea syndrome -Continue wearing CPAP #Hyperlipidemia -Labs 10/04/21 LFTs: AST 19, ALT 22 Lipids: chol 182, HDL 69, trig 27, LDL 107 -Continue routine exercise and heart healthy diet. Follow-[facility] in 3 months or [facility] NotePatient here for 4 mo follow up hypertension and NSVT. Says the lightheadedness has subsided. Denies chest pain and SOB. Hasn't had palpitations. LE edema resolves by morning. Patient states BP at home is rarely over 120 systolic. [facility]12-30-2022 Evaluation note* Encounter Date Diagnosis Assessment Notes Treatment Notes Treatment Clinical Notes Mar, Acute sinusitis, unspecified (ICD-10 - J01.90) Advised patient that COVID/Influenza A/B/RSV PCR test was negative today in office. Discussed diagnosis with patient today. Will treat as viral at this time based on physical exam and duration of symptoms. Advised patient viral syndromes last 7-10 days. If symptoms do not improve in the next 3-4 days patient may call UC and I will send antibiotic. Encouraged supportive care as directed today. Push fluids/rest, nasal saline washes as directed, may use Tylenol or Motrin as needed for discomfort, OTC plain Mucinex, Flonase. Patient to follow up with PCP or UC for any new or worsening symptoms. Immediate eval if SOB, wheezing, difficulty breathing, or other concerning symptoms. Patient verbalizes understanding and is agreeable to treatment plan Mar, Other viral agents as the cause of diseases classified elsewhere (ICD-10 - B97.89) Mar, Impacted cerumen, right ear (ICD-10 - H61.21) Ear lavage in office today. Discussed proper ear hygiene. Avoid putting anything inside the ear such as Q-tips, etc. Patient may use OTC wax softeners (Debrox) as directed as needed. Follow up with UC or PCP as needed. Immediate eval for ear drainage, pain, loss of hearing, ringing, dizziness, fever, redness, swelling, and pain behind the ear, headache, neck pain, or any other new or concerning symptoms. Patient verbalizes understanding and is agreeable to treatment plan Mar, Headache (ICD-10 - R51.9) [facility] [employer] Other Evaluation noteNo InformationNortDepartment of [facility] [employer] Other Hisiygl general Narrative - Reported* Type Description Date Medical History hx of hypertension Surgical History tubiligation Surgical History [place] Tooth Extraction Hospitalization History vaginal child x 3 [facility] [employer] Other Hismgys general Narrative - Reported* Type Description Date Medical History hx of hypertension Medical History PVC Medical History osteoarthritis of the left knee Surgical History tubiligation Surgical History [place] Tooth Extraction Hospitalization History vaginal child x 3 [facility] [employer] Other Hisebtw general Narrative - Reported* Type Description Date Medical History hx of hypertension Medical History PVC Medical History osteoarthritis of the left knee Surgical History tubiligation Surgical History [place] Tooth Extraction Surgical History left total knee arthroplasty Hospitalization History vaginal child x 3 [facility] [employer] Other Summary Purpose Family History No Family History Records FoundNo Family History Records FoundNo Family History Records FoundNo Family History Records FoundNo Family History Records FoundNo Family History Records Found Advance Directives No Advanced Directives Records FoundNo Advanced Directives Records FoundNo Advanced Directives Records FoundNo Advanced Directives Records FoundNo Advanced Directives Records FoundNo Advanced Directives Records Found Additional Source Comments INFORMATION SOURCE (unrecogn ized section and content) DATE CREATED AUTHOR 09/24/2020 [facility] DATE CREATED AUTHOR AUTHOR'S ORGANIZ ATION 11/18/2020 [facility] DATE CREATED AUTHOR AUTHOR'S ORGANIZ ATION 08/26/[address] [facility] DATE CREATED AUTHOR AUTHOR'S ORGANIZ ATION 01/25/2023 [facility] DATE CREATED AUTHOR AUTHOR'S ORGANIZ ATION 04/06/2023 [facility] DATE CREATED AUTHOR AUTHOR'S ORGANIZ ATION 05/13/2023 [facility] REASON FOR VISIT (unrecogniz ed section and content) FEVER EAR PAIN B/A H/Leonid re fillRecheck Left TKARecheck Left TKANo Informationknee concernsRecheck Left Knee FOR RECORDS PERTAINING TO PATIENTS WHO ARE OR HAVE BEEN ENROLLED IN A CHEMICAL DEPENDENCY/SUBSTANCEABUSE PROGRAM, SOME INFORMATION MAY BE OMITTED. This clinical summary was aggregated from multiple sources. Caution should be exercised in using it in the provision of clinical care. This summary normalizes information from multiple sources, and as a consequence, information in this document may materially change the coding, format and clinical context of patient data. In addition, data may be omitted in some cases. CLINICAL DECISIONS SHOULD BE BASED ON THE PRIMARY CLINICAL RECORDS. [facility]. provides no warranty or guarantee of the accuracy or completeness of information in this document.
--- NOTE | 2023-06-20 08:46 | US_ITS ---
The [address] [address] Patient Name: LOYD ARELLANO MRN: [id number] date: 1950 Sex: F Assigned Patient Location: [facility] Current Patient Location: [facility] Accession/Order Number: [id number] Exam Date: 06/20/2023 08:54 Report Date: 06/20/2023 09:33 At the request of: ANDIE MARIANO Procedure: US renal bladder Ultrasound kidneys, bilateral HISTORY: Urinary Tract Infection N39.0 frequent urinary tract infections. COMPARISON: None. TECHNIQUE: Transabdominal ultrasound imaging of both kidneys was performed. FINDINGS: Both kidneys demonstrate normal echotexture and echogenicity. The right kidney measures 9.3 x 4.7 x 3.3 cm. Renal cortex measures 1.0 cm. There is no hydronephrosis of right kidney. The left kidney measures 10.0 x 4.4 x 3.8 cm. Renal cortex is 1.2 cm. No hydronephrosis of left kidney. No discrete renal lesion or renal stone is seen. The bladder is decompressed with prevoid volume at 70 cc. Bladder wall is mildly thickened but this could be due to lack of distention. Postvoid volume is 4 cc. Bilateral ureteral jets are seen within bladder lumen. US/US renal bladder IMPRESSION: 1. Normal ultrasound appearance of the kidneys for age. Negative for hydronephrosis, structural renal lesion, or renal stone by ultrasound. 2. Decompressed bladder that is not well evaluated but bilateral ureteral jets are visualized in bladder lumen. Wall thickening of the bladder probably from lack of distention but can also be seen with bladder inflammation. No significant post void bladder residual. Electronically authenticated by: AISHWARYA DE LOS SANTOS Date: 06/20/2023 09:33
== END 2023-06-20 08:39 | disposition home or self-care (01) ==
LOC: RAD 08:39
PROVIDERS: PCP Family Medicine; Visit Provider Family Medicine
DX: N39.0 Urinary tract infection, site not specified (principal)
CPT/HCPCS: 76770

== ENCOUNTER 2023-10-18 12:19 | Outpatient (OUT) | payer MEDICARE, OTHER, SELFPAY ==
--- OUTSIDE RECORDS SUMMARY | 2023-10-18 12:36 | XMS_ITS | CCD ---
Author Organization [facility] Care Team Providers Care Rd Scientist Name Role Phone DOE VELEZ Attending Unavailable DOE VELEZ Admitting Unavailable GOPIYANDIE Referring Unavailable GOPIYANDIE Primary Care Unavailable Linda Hall Unavailable GOPIY [...] Unavailable HOY ., DR CHAVES Consulting Unavailable PARUL FITZPATRICK Admitting Unavailable PARUL FITZPATRICK [...] HOY ., DR CHAVES Primary Care Unavailable ZIEBER, DR GRANT Miller Consulting Unavailable HOY ., DR CHAVES Primary Care Unavailable HOY ., DR CHAVES Admtejas Unavailable HOY ., DR CHAVES Attending Unavailable [...] Unavailable HOY ., DR CHAVES Consulting Unavailable W[place], DR LISET Cuadra Consulting Unavailable HOY ., [...] KARASIK ., DR OWEN Consulting Unavailabl e Elma, Tomás Unavailable PARUL FITZPATRICK Attending Unavailable ALGHOTHANI, ELEONORA Attending Unavailable ALGHOTHANI, MOHAMAD Attending Unavailable Elma, Tomás A Admitting Unavailable [...] Admitting Unavailable Elma, Tomás A Attending Unavailable RINKES, FRANK E Attending Unavailable RINKES, FRANK E Attending Unavailable Allergies Allergy Classification Reported Allergen(s) Allergy Type Date of Onset Reaction(s) Facility Penicillins (antibiotic) (1 source) Penicillin Drug Allergy 1 [facility] Repository Tetracyclines (antibiotic) (1 source) Tetracyclines Drug Allergy 1 [facility] Repository (7 sources) Penicillin Drug Allergy Unknown [employer] Other (8 sources) Tetracycline; Translations: [TETRACYCLINE] Drug Allergy 2 [facility] Repository (2 sources) Penicillins; Translations: [PENICILLINS] Drug allergy (disorder) 4 [facility] Repository (1 source) Tetracycline Drug Allergy 4 [facility] Repository (1 source) Penicillins Drug allergy (disorder) 3 [facility] Repository (1 source) Tetracycline Drug Allergy 3 [facility] Repository Medications Current Medications Medication Drug [...] Not-Taking Start: 09-09-2022 take 1 capsule by [facility] every twelve hours Clindamycin HCl 300 MG [...] LT 2Von 02-27-2023 XR knee LT 2V [facility] [place] [address] XRay Report Signed Patient: Glenis Perez MR#: [id number] 42 : 1950 Acct:[id number] Age/Sex: 72 / F ADM Date: 02/27/23 Loc: [facility] [place] Room: Type: [facility] Attending Dr: Tomás Wills DO Copies to: [...] Raúl Woo M.D.02/27/2023 3:08 PM Dictation Location: [place] [address] Transcribed By: [facility] 02/27/23 1508 Dictated By: Raúl Woo DO 02/27/23 1508 Signed By: 02/27/23 1508 Normal [facility] XR knee LT 2V [facility] [employer] Other XR knee LT 2V [facility] [employer] Other XR knee LT 2V [address] [place] [address] [employer] Other XR knee LT 2V [address] [employer] Other XR knee LT 2V XRay Report [place] [employer] Other XR knee LT 2V Signed [employer] Other XR knee LT 2V Patient: Glenis Perez MR#: [id number] [place] [employer] Other XR knee LT 2V 42 [place] [employer] Other XR knee LT 2V : 1950 Acct:[id number] [place] [employer] Other XR knee LT 2V Age/Sex: 72 / F ADM Date: 02/27/23 [employer] Other XR knee LT 2V Loc: [facility] Room: Type : [facility] [employer] Other XR knee LT 2V Attending Dr: Tomás Wills DO [place] [employer] Other XR knee LT 2V Copies to: Tomás Wills DO [employer] Other XR knee LT 2V Ordering Provider: Tomás Wills DO [employer] Other XR knee LT 2V Date of Service: 02/27/23 [employer] Other XR knee LT 2V XR/XR knee LT 2V: Status post total left knee replacement [employer] Other XR knee LT 2V 2 views LEFT knee plain film [employer] Other XR knee LT 2V COMPARISON: 09/13/22 N [employer] Other XR knee LT 2V HISTORY: Status post LEFT total knee arthroplasty [employer] Other XR knee LT 2V ACUTE FINDINGS: None N [employer] Other XR knee LT 2V DEGENERATIVE CHANGE: Unremarkable [employer] Other XR knee LT 2V SOFT TISSUE FINDINGS : Unremarkable [employer] Other XR knee LT 2V JOINT EFFUSION: None N [employer] Other XR knee LT 2V POSTOP CHANGES: Stable hardware [employer] Other XR knee LT 2V BONE MINERALIZATION: Adequate [employer] Other XR knee LT 2V XR/XR knee LT 2V [employer] Other XR knee LT 2V IMPRESSION: Uncomplicated LEFT knee arthroplasty [employer] Other XR knee LT 2V Impression dictated by: Raúl Woo M.D.02/27/2023 3:08 PM [employer] Other XR knee LT 2V Dictation Location: [place] [address] [employer] Other XR knee LT 2V Transcribed By: [facility] 02/27/23 1508 [employer] Other XR knee LT 2V Dictated By: Raúl Woo DO 02/27/23 1506 [employer] Other XR knee LT 2V Signed By: [employer] Other XR knee LT 2V 02/27/23 6835 [employer] Other Office Visiton 01-04-2023 Follow-up visit [id number] Glenis Perez 1950 F Date Provider Department Center 01/04/2023 3848-ELEONORA HERNANDEZ [facility] Family History Problem Relation Age of Onset Heart attack Mother Coronary artery disease Mother Other Brother Family Status - Relation Status Age at Mother Brother Level of Service:81249 [place] OFFICE/OUTPATIENT ESTABLISHED LOW MDM 20-29 MIN Normal [facility] Morales 09-13-2022 L - -------- Specimen: [id number] Received: 09/13/22 Status: LUZ Lynn Num: [id number] Spec Type: Surgical Subm Dr: Tomás Wills DO Tissues: A Joint/Knee (LT KNEE) Procedures: Gross/Micro L4, Decalcification -------- Age/ Patient Sex Location Account Attending Physician -------- BromleyGlenis ghotra Ann 71/F [place] [id number] Tomás Wills DO -------- SPEC NUM: [id number] RECD: 09/13/22 STATUS: LUZ LYNN NUM: [id number] SETH: 09/13/[address] [facility] DR: Tomás Wills DO ENTERED: 09/13/[address] [facility] [address]: ANDREW TYPE: Surgical DEPT: S ORDERED: [...] is taken. Gross examination only. CPT Codes 17096 Gross Photo -------- -------- Specimen: [id number] Received: 09/13/22 Status: LUZ Lynn Num: [id number] Spec Type: Surgical Subm Dr: Tomás Wills DO Tissues: A Joint/Knee (LT KNEE) Procedures: Gross/Micro L4, Decalcification -------- Patient: Glenis Perez [id number] (Continued) -------- Signed (signature on file) Kendra Guzman MD 09/14/22 1033 Normal [facility] XR knee LT 2Von 09-13-2022 [place]R [place] 2[place] [address] XRay Report Signed Patient: Glenis Perez MR#: [id number] 40 : 1950 Acct:[id number] Age/Sex: 71 / F ADM Date: 09/13/22 Loc: [place] Room: Type: [facility] Attending Dr: Tomás Wills DO Copies to: [...] Sameer Guy M.D.09/13/2022 3:01 PM Dictation Location: [place] [address] Transcribed By: [facility] 09/13/22 1501 Dictated By: Sameer Guy II, MD 09/13/22 1500 Signed By: 09/13/22 1501 [facility] PROF CHEM 8 (BAS METB)on Anion gap [Moles/Vol] 10.3 mmol/L Normal [facility] Comment on above: Performed By: #### B MP #### [facility] [address] [place] [address] Dr. Duong Alcaraz Calcium [Mass/Vol] 9.3 mg/dL Normal 8.5-10.1 [facility] Comment on above: Performed By: #### B MP #### [facility] [address] [place] [address] Dr. Duong Alcaraz Chloride [Moles/Vol] 95 mmol/L Critically low 98-107 [facility] Comment on above: Performed By: #### B MP #### [facility] [address] [place] [address] Dr. Duong Aclaraz CO2 [Moles/Vol] 30.6 mmol/L Normal 21.0-32.0 [place] Comment on above: Performed By: #### B MP #### [facility] [address] [place] [address] Dr. Dunog Alcaraz Creatinine [Mass/Vol] 0.69 mg/dL Normal 0.55-1.02 [facility] Comment on above: Performed By: #### B MP #### [facility] [address] [place] [address] [address] Duong Alcaraz EGFR-AF MALIAN >60 Normal >=60 [place] Comment on above: Performed By: #### B MP #### [facility] [address] [place] [address] [address] Duong Alcaraz EGFR-NON AF MALIAN >60 Normal >=60 [facility] Comment on above: Performed By: #### B MP #### [facility] [address] [place] [address] [address] Duong Alcaraz Glucose [Mass/Vol] 83 mg/dL Normal 74-106 [facility] Comment on above: Performed By: #### B MP #### [facility] [address] [place] [address] [address] Duong Alcaraz Potassium [Moles/Vol] 3.9 mmol/L Normal 3.5-5.1 [facility] Comment on above: Performed By: #### B MP #### [facility] [address] [place] [address] [address] Duong Alcaraz Sodium [Moles/Vol] 132 mmol/L Critically low 136-145 [facility] Comment on above: Performed By: #### B MP #### [facility] [address] [place] [address] [address] Duong Alcaraz Urea nitrogen [Mass/Vol] 12.0 mg/dL Normal 7.0-18.0 [facility] Comment on above: Performed By: #### B MP #### [facility] [address] [place] [address] [address] Duong Alcaraz Urea nitrogen/Creatinine [Mass ratio] 17.4 mg/mg Normal [facility] Comment on above: Performed By: #### B MP #### [facility] [address] [place] [address] [address] Duong Alcaraz CMP with reflex to A1Con Albumin [Mass/Vol] 3.9 g/dL Normal 3.5-5.7 [facility] Comment on above: Performed By: #### C BC, CMP wRFX A1C #### [facility] [address] [place] [id number] [place] Albumin/Globulin [Mass ratio] 1.5 {ratio} Normal [facility] Comment on above: Performed By: #### C BC, CMP wRFX A1C #### [facility] [address] ALP [Catalytic activity/Vol] 34 U/L Normal 34-104 [facility] Comment on above: Result Comment: PERF ORMED BY: [place] [address] PATHOLOGIST BUSINESS SERVICES TECH YAMILETH PERRY M.D. Performed By: #### C BC, CMP wRFX A1C #### [address] ALT [Catalytic activity/Vol] 14 U/L Normal 7-52 [facility] Comment on above: Performed By: #### C BC, CMP wRFX A1C #### [facility] [address] [place] [address] [place] Anion gap [Moles/Vol] 11.1 mmol/L Normal 6.0-15.0 [facility] Comment on above: Performed By: #### C BC, CMP wRFX A1C #### [place] [address] [place] AST [Catalytic activity/Vol] 18 U/L Normal 13-39 [facility] Comment on above: Performed By: #### C BC, CMP wRFX A1C #### [facility] [address] [place] [id number] [place] Bilirubin [Mass/Vol] 0.6 mg/dL Normal 0.3-1.0 [facility] Comment on above: Performed By: #### C BC, CMP wRFX A1C #### [facility] [address] [place] [id number] [place] Calcium [Mass/Vol] 8.4 mg/dL Low 8.6-10.3 [facility] Comment on above: Performed By: #### C BC, CMP wRFX A1C #### [facility] [address] Chloride [Moles/Vol] 94 mmol/L Low 98-107 [facility] Comment on above: Performed By: #### C BC, CMP wRFX A1C #### [facility] [address] CO2 [Moles/Vol] 28.0 mmol/L Normal 21.0-31.0 [facility] Comment on above: Performed By: #### C BC, CMP wRFX A1C #### [address] Creatinine [Mass/Vol] 0.68 mg/dL Normal 0.60-1.20 [facility] Comment on above: Performed By: #### C BC, CMP wRFX A1C #### [place] [address] [place] GFR/1.73 sq M.predicted MDRD (S/P/Bld) [Vol rate/Area] mL/min/{1.73_m2} Normal [facility] Comment on above: Performed By: #### C BC, CMP wRFX A1C #### [facility] [address] [place] [address] Globulin (S) [Mass/Vol] 2.6 g/dL Normal [facility] Comment on above: Performed By: #### C BC, CMP wRFX A1C #### [facility] [address] [place] [address] [place] Glucose [Mass/Vol] 88 mg/dL Normal 70-100 [facility] Comment on above: Performed By: #### C BC, CMP wRFX A1C #### [facility] [address] [place] [address] [place] Potassium [Moles/Vol] 4.1 mmol/L Normal 3.5-5.1 [facility] Comment on above: Performed By: #### C BC, CMP wRFX A1C #### [facility] [address] [place] [address] [place] Protein [Mass/Vol] 6.5 g/dL Normal 6.4-8.9 [facility] Comment on above: Performed By: #### C BC, CMP wRFX A1C #### [facility] [address] Sodium [Moles/Vol] 129 mmol/L Low 136-145 [facility] Comment on above: Performed By: #### C BC, CMP wRFX A1C #### [facility] [address] Urea nitrogen [Mass/Vol] 19 mg/dL Normal 7-25 [facility] Comment on above: Performed By: #### C BC, CMP wRFX A1C #### [address] Complete Blood Count Auto Di ffon 08-12-2022 Basophils (Bld) [#/Vol] 0.1 10*3/uL Normal 0.0-0.2 [facility] Comment on above: Result Comment: PERF ORMED BY: [place] [address] PATHOLOGIST BUSINESS SERVICES TECH YAMILETH PERRY M.D. Performed By: #### C BC, CMP wRFX A1C #### [place] [address] [place] Basophils/100 WBC (Bld) 1.3 % Normal . [facility] Comment on above: Performed By: #### C BC, CMP wRFX A1C #### [facility] [address] [place] [address] [place] Eosinophils (Bld) [#/Vol] 0.1 10*3/uL Normal 0.0-0.45 [facility] Comment on above: Performed By: #### C BC, CMP wRFX A1C #### [place] [address] [place] Eosinophils/100 WBC (Bld) 1.6 % Normal . [facility] Comment on above: Performed By: #### C BC, CMP wRFX A1C #### [facility] [address] [place] [address] Erythrocyte distribution width (RBC) [Ratio] 13.6 % Normal 11.9-15.3 [facility] Comment on above: Performed By: #### C BC, CMP wRFX A1C #### [address] Hematocrit (Bld) [Volume fraction] 35.9 % Normal 34.0-46.4 [facility] Comment on above: Performed By: #### C BC, CMP wRFX A1C #### [address] Hemoglobin (Bld) [Mass/Vol] 12.6 g/dL Normal 11.8-15.4 [facility] Comment on above: Performed By: #### C BC, CMP wRFX A1C #### [address] Lymphocytes (Bld) [#/Vol] 0.7 10*3/uL Low 1.00-4.8 [facility] Comment on above: Performed By: #### C BC, CMP wRFX A1C #### [address] Lymphocytes/100 WBC (Bld) 14.6 % Normal . [facility] Comment on above: Performed By: #### C BC, CMP wRFX A1C #### [address] MCH (RBC) [Entitic mass] 31.8 pg Normal 24.7-34.3 [facility] Comment on above: Performed By: #### C BC, CMP wRFX A1C #### [address] MCV (RBC) [Entitic vol] 90.7 fL Normal 80-100 [facility] Comment on above: Performed By: #### C BC, CMP wRFX A1C #### [address] Mean Corpuscular HGB Conc 35.0 g/dL Normal 32.0-35.0 [facility] Comment on above: Performed By: #### C BC, CMP wRFX A1C #### [facility] [address] [place] [address] [place] Monocytes (Bld) [#/Vol] 0.5 10*3/uL Normal 0.0-0.8 [facility] Comment on above: Performed By: #### C BC, CMP wRFX A1C #### [facility] [address] [place] [address] [place] Monocytes/100 WBC (Bld) 10.4 % Normal . [facility] Comment on above: Performed By: #### C BC, CMP wRFX A1C #### [facility] [address] [place] [address] [place] Neutrophils (Bld) [#/Vol] 3.7 10*3/uL Normal 1.8-7.7 [facility] Comment on above: Performed By: #### C BC, CMP wRFX A1C #### [facility] [address] [place] [address] [place] Neutrophils/100 WBC (Bld) 72.1 % Normal . [facility] Comment on above: Performed By: #### C BC, CMP wRFX A1C #### [facility] [address] [place] [address] [place] NRBC% 0.0 /100{WBC} Normal 0-0.5 [facility] Comment on above: Performed By: #### C BC, CMP wRFX A1C #### [facility] [address] [place] [address] [place] Platelet mean volume (Bld) [Entitic vol] 6.2 fL Low 6.3-10.7 [facility] Comment on above: Performed By: #### C BC, CMP wRFX A1C #### [facility] [address] [place] [address] [place] Platelets (Bld) [#/Vol] 241 10*3/uL Normal 150-450 [facility] Comment on above: Performed By: #### C BC, CMP wRFX A1C #### [facility] [address] [place] [address] [place] RBC (Bld) [#/Vol] 3.96 10*6/uL Normal 3.60-5.00 [facility] Comment on above: Performed By: #### C BC, CMP wRFX A1C #### [facility] [address] [place] [address] [place] WBC (Bld) [#/Vol] 5.1 10*3/uL Normal 3.8-11.6 [facility] Comment on above: Performed By: #### C BC, CMP wRFX A1C #### [facility] [address] [place] [address] [place] Dipstick and Microscopicon 0 08-12-2022 Appearance (U) Clear Normal Clear [facility] Comment on above: Order Comment: Name Collection Type:: Clean-Voided Midstream Performed By: #### A DDONUAPLUS #### [place] [address] [place] Bacteria,Urine None Seen Normal None Seen [facility] Comment on above: Order Comment: Name Collection Type:: Clean-Voided Midstream Performed By: #### A DDONUAPLUS #### [facility] [address] [place] [address] [place] Bilirubin,Urine Negative Normal Negative [facility] Comment on above: Order Comment: Name Collection Type:: Clean-Voided Midstream Performed By: #### A DDONUAPLUS #### [place] [address] [place] Color (U) Yellow Normal Yellow [facility] Comment on above: Order Comment: Name Collection Type:: Clean-Voided Midstream Performed By: #### A DDONUAPLUS #### [facility] [address] [place] [address] [place] Glucose Ql (U) Normal Normal Normal [facility] Comment on above: Order Comment: Name Collection Type:: Clean-Voided Midstream Performed By: #### A DDONUAPLUS #### [facility] [address] [place] [address] [place] Hyaline Casts,Urine None Seen Normal 0-8 [facility] Comment on above: Order Comment: Name Collection Type:: Clean-Voided Midstream Result Comment: PERF ORMED BY: [place] [address] PATHOLOGIST BUSINESS SERVICES TECH YAMILETH PERRY M.D. Performed By: #### A DDONUAPLUS #### [address] Ketones Ql (U) Negative Normal Negative [facility] Comment on above: Order Comment: Name Collection Type:: Clean-Voided Midstream Performed By: #### A DDONUAPLUS #### [address] Leukocyte esterase Test strip Ql (U) 3+ High Negative [facility] Comment on above: Order Comment: Name Collection Type:: Clean-Voided Midstream Performed By: #### A DDONUAPLUS #### [place] [address] [place] Nitrite,Urine Negative Normal Negative [facility] Comment on above: Order Comment: Name Collection Type:: Clean-Voided Midstream Performed By: #### A DDONUAPLUS #### [place] [address] [place] Occult Blood,Urine Negative Normal Negative [facility] Comment on above: Order Comment: Name Collection Type:: Clean-Voided Midstream Result Comment: PERF ORMED BY: [place] [address] PATHOLOGIST BUSINESS SERVICES TECH YAMILETH PERRY M.D. Performed By: #### A DDONUAPLUS #### [place] [address] [place] pH (U) 7.0 [pH] Normal 5.0-9.0 [facility] Comment on above: Order Comment: Name Collection Type:: Clean-Voided Midstream Performed By: #### A DDONUAPLUS #### [place] [address] [place] Protein,Urine Negative Normal Negative [facility] Comment on above: Order Comment: Name Collection Type:: Clean-Voided Midstream Performed By: #### A DDONUAPLUS #### [address] [place] [address] [place] RBC LM.HPF (Urine sed) [#/Area] 0 /[HPF] Normal 0-4 [facility] Comment on above: Order Comment: Name Collection Type:: Clean-Voided Midstream Performed By: #### A DDONUAPLUS #### [facility] [address] [place] [address] Specificy [place],Urine 1.007 Normal 1.001-1.030 [facility] Comment on above: Order Comment: Name Collection Type:: Clean-Voided Midstream Performed By: #### A DDONUAPLUS #### [facility] [address] [place] [address] Squamous Epithelial Cell,Urine None Seen Normal 0-2 [facility] Comment on above: Order Comment: Name Collection Type:: Clean-Voided Midstream Performed By: #### A DDONUAPLUS #### [facility] [address] [place] [address] Urobilinogen,Urine Normal Normal Normal [facility] Comment on above: Order Comment: Name Collection Type:: Clean-Voided Midstream Performed By: #### A DDONUAPLUS #### [facility] [address] [place] [address] WBC,Urine 3-4 Normal 0-4 [facility] Comment on above: Order Comment: Name Collection Type:: Clean-Voided Midstream Performed By: #### A DDONUAPLUS #### [facility] [address] [place] [address] Office Visiton 08-03-2022 Follow-up visit [id number] Glenis Perez 1950 F Date Provider Department Center 08/03/2022 Jill[facility]PARUL [facility] Family History Problem Relation Age of Onset Heart attack Mother Coronary artery disease Mother Other Brother Family Status - Relation Status Age at Mother Brother Level of Service:62131 [place] OFFICE/OUTPATIENT ESTABLISHED MOD MDM 30-39 MIN Reason for Visit and Comments: Follow-up [884965] - 4 months Cardiac Clearance [Other] - Left knee replacement scheduled for 08/30/22 Normal [facility] MRI KNEE LT WO CONon 023 MRI KNEE LT WO CON EXAMINATION: [...] by: GRANT ORTEGA Date: 2022-07-04 12:13 Normal [facility] Office Visiton 05-04-2022 Follow-up visit [id number] Glenis Perez 1950 F Date Provider Department Center 05/04/2022 3848-ELEONORA HERNANDEZ [facility] Family History Problem Relation Age of Onset Heart attack Mother Coronary artery disease Mother Other Brother Family Status - Relation Status Age at Mother Brother Level of Service:98389 [place] OFFICE/OUTPATIENT ESTABLISHED LOW MDM 20-29 MIN Reason for Visit and Comments: Hypertension [044912] NSVT [Other] Hyperlipidemia [182] Normal [facility] COVID/FLU/RSV RT-PCRon 04-22 SARS-CoV-2 (COVID-19) RNA CASH+probe Ql (Unsp spec) Negative [facility] [employer] Other COVID/FLU/RSV RT-PCR Negative [employer] Other CULTURE URINEon 04-14-2022 CULTURE URINE Isolate [...] F Trimethoprim/Sulfamet hoxazole <=20 S F Normal [facility] Comment on above: Performed By: #### U RCX ####[facility] [id number] [place], [place] [address]Dr. Duong Alcaraz CALCIUMon 04-01-2022 Calcium [Mass/Vol] 9.4 mg/dL Normal 8.5-10.1 [facility] Comment on above: Performed By: #### C A CREA ####[facility] [address] [place] [address]Dr. Duong Alcaraz CREATININEon 04-01-2022 Creatinine [Mass/Vol] 0.73 mg/dL Normal 0.55-1.02 [facility] Comment on above: Performed By: #### C A CREA ####[facility] [address] [place], [place] [address]Dr. Selenastevo Alcaraz EGFR-AF MALIAN >60 Normal >=60 [place] Comment on above: Performed By: #### C A, CREA ####[facility] [address] [place] [address]Dr. Duong Alcaraz EGFR-NON AF MALIAN >60 Normal >=60 [facility] Comment on above: Performed By: #### C A, CREA ####[facility] [address] [place] [address]Dr. Duong Alcaraz PROF CHEM 8 (BAS METB)on Anion gap [Moles/Vol] 12.5 mmol/L Normal [facility] Comment on above: Performed By: #### B MP #### [facility] [address] [address] [address] Duong Alcaraz Calcium [Mass/Vol] 8.8 mg/dL Normal 8.5-10.1 [facility] Comment on above: Performed By: #### B MP #### [facility] [address] [place] [address] [address] Duong Alcaraz Chloride [Moles/Vol] 95 mmol/L Critically low 98-107 [facility] Comment on above: Performed By: #### B MP #### [facility] [address] [place] [address] [address] Duong Alcaraz CO2 [Moles/Vol] 27.3 mmol/L Normal 21.0-32.0 [place] Comment on above: Performed By: #### B MP #### [facility] [address] [place] [address] [address] Duong Alcaraz Creatinine [Mass/Vol] 0.68 mg/dL Normal 0.55-1.02 [facility] Comment on above: Performed By: #### B MP #### [facility] [address] [address] [address] Duong Alcaraz EGFR-AF MALIAN >60 Normal >=60 [place] Comment on above: Performed By: #### B MP #### [facility] [address] [address] [address] Duong Alcaraz EGFR-NON AF MALIAN >60 Normal >=60 [facility] Comment on above: Performed By: #### B MP #### [facility] [address] [address] [address] Duong Aclaraz Glucose [Mass/Vol] 98 mg/dL Normal 74-106 [facility] Comment on above: Performed By: #### B MP #### [facility] [address] [address] [address] Duong Alcaraz Potassium [Moles/Vol] 3.8 mmol/L Normal 3.5-5.1 [facility] Comment on above: Performed By: #### B MP #### [facility] [address] [address] [address] Duong Alcaraz Sodium [Moles/Vol] 131 mmol/L Critically low 136-145 [facility] Comment on above: Performed By: #### B MP #### [facility] [address] [place] [address] Dr. Duong Alcaraz Urea nitrogen [Mass/Vol] 14.0 mg/dL Normal 7.0-18.0 [facility] Comment on above: Performed By: #### B MP #### [facility] [address] [place] [address] Dr. Duong Alcaraz Urea nitrogen/Creatinine [Mass ratio] 20.6 mg/mg Normal [facility] Comment on above: Performed By: #### B MP #### [facility] [address] [place] [address] Dr. Duong Alcaraz BNPon 11-12-2021 Natriuretic peptide B (Bld) [Mass/Vol] 151.0 pg/mL Normal <=900.0 [facility] Comment on above: Performed By: #### C MP, BNP #### [facility] [address] [address] [address] Duong Alcaraz CBC AUTO DIFFon 11-12-2021 BASO # 0.1 103/ul Normal 0.0-0.1 [facility] Comment on above: Performed By: #### C BC ####[facility] [address] [address]Dr. Duong Alcaraz Basophils/100 WBC (Bld) 1.3 % Normal 0.2-2.0 [facility] Comment on above: Performed By: #### C BC ####[facility] [address] [address]Dr. Duong Alcaraz EO # 0.2 103/ul Normal 0.0-0.7 [facility] Comment on above: Performed By: #### C BC ####[facility] [address] [place], [place] [address]Dr. Duogn Alcaraz Eosinophils/100 WBC (Bld) 4.4 % Normal 0.9-7.0 [facility] Comment on above: Performed By: #### C BC ####[facility] [address] [place], [place] [address]Dr. Duong Alcaraz Erythrocyte distribution width (RBC) [Ratio] 12.3 % Normal 11.0-15.0 [facility] Comment on above: Performed By: #### C BC ####[facility] [address] [place], [place] [address]Dr. Selenastevo Alcaraz Hematocrit (Bld) [Volume fraction] 36.4 % Normal 36.0-48.0 [facility] Comment on above: Performed By: #### C BC ####[facility] [address] [place], [place] [address]Dr. Duong Alcaraz Hemoglobin (Bld) [Mass/Vol] 12.8 g/dL Normal 12.0-16.0 [facility] Comment on above: Performed By: #### C BC ####[facility] [address] [place], [place] [address]Dr. Selenastevo Alcaraz IG # 0.02 10e3/ul Normal 0.00-0.03 [facility] Comment on above: Performed By: #### C BC ####[facility] [address] [place], [place] [address]Dr. Selenastevo Alcaraz IG % 0.5 % Normal 0.0-0.5 [facility] Comment on above: Performed By: #### C BC ####[facility] [address] [place], [place] [address]DrClovis Alcaraz LYMPH # 0.8 103/ul Critically low 1.2-3.8 [facility] Comment on above: Performed By: #### C BC ####[facility] [address] [id number]. Duong Alcaraz Lymphocytes/100 WBC (Bld) 19.5 % Critically low 20.5-60.0 [facility] Comment on above: Performed By: #### C BC ####[facility] [address] [phone] Alcaraz MANUAL DIFF REQ NO Normal [facility] Comment on above: Performed By: #### C BC ####[facility] [address] [phone]. Duong Alcaraz MCH (RBC) [Entitic mass] 31.7 pg Normal 26.7-34.0 [facility] Comment on above: Performed By: #### C BC ####[facility] [address] [address]Dr. Duong Alcaraz MCHC (RBC) [Mass/Vol] 35.2 g/dL Normal 29.9-35.2 [facility] Comment on above: Performed By: #### C BC ####[facility] [address] [phone] Alcaraz MCV (RBC) [Entitic vol] 90.1 fL Normal 81.0-99.0 [facility] Comment on above: Performed By: #### C BC ####[facility] [address] [address]DrClovis Alcaraz MONO # 0.5 103/ul Normal 0.3-0.8 [facility] Comment on above: Performed By: #### C BC ####[facility] [address] [phone] Alcaraz Monocytes/100 WBC (Bld) 12.3 % Critically high 1.7-12.0 [facility] Comment on above: Performed By: #### C BC ####[facility] [address] [phone] Alcaraz NEUT # 2.4 103/ul Normal 1.4-6.5 [facility] Comment on above: Performed By: #### C BC ####[facility] [address] [phone] Alcaraz Neutrophils/100 WBC (Bld) 62.0 % Normal 43.0-75.0 [facility] Comment on above: Performed By: #### C BC ####[facility] [address] [phone] Alcaraz Platelet mean volume (Bld) [Entitic vol] 7.8 fL Critically low 9.5-13.5 [facility] Comment on above: Performed By: #### C BC ####[facility] [address] [phone] Alcaraz PLT 183 103/ul Normal 150-450 [facility] Comment on above: Performed By: #### C BC ####[facility] [address] [phone] Alcaraz RBC 4.04 106/ul Critically low 4.20-5.[address] [facility] Comment on above: Performed By: #### C BC ####[facility] [address] [phone] Alcaraz WBC 3.9 103/ul Critically low 4.0-11.0 [facility] Comment on above: Performed By: #### C BC ####[facility] [address] [phone]. Duong Alcaraz PROF 14(COMP METB)on 022 Albumin [Mass/Vol] 3.4 g/dL Normal 3.4-5.0 [facility] Comment on above: Performed By: #### C MP, BNP #### [facility] [address] [address] [address] Duong Alcaraz Albumin/Globulin [Mass ratio] 0.9 {ratio} Normal [facility] Comment on above: Performed By: #### C MP, BNP #### [facility] [address] [address] [address] Duong Alcaraz ALP [Catalytic activity/Vol] 33 U/L Critically low 46-116 [facility] Comment on above: Performed By: #### C MP, BNP #### [facility] [address] [place] [address] Dr. Duong Alcaraz ALT [Catalytic activity/Vol] 21 U/L Normal 14-59 [facility] Comment on above: Performed By: #### C MP, BNP #### [facility] [address] [address] [address] Duong Alcaraz Anion gap [Moles/Vol] 8.0 mmol/L Normal [facility] Comment on above: Performed By: #### C MP, BNP #### [facility] [address] [address] [address] Duong Alcaraz AST [Catalytic activity/Vol] 26 U/L Normal 15-37 [facility] Comment on above: Performed By: #### C MP, BNP #### [facility] [address] [place] [address] Dr. Duong Alcaraz Bilirubin [Mass/Vol] 0.6 mg/dL Normal 0.2-1.0 [facility] Comment on above: Performed By: #### C MP, BNP #### [facility] [address] [place] [address] Dr. Duong Alcaraz Calcium [Mass/Vol] 8.8 mg/dL Normal 8.5-10.1 [facility] Comment on above: Performed By: #### C MP, BNP #### [facility] [address] [address] [address] Duong Alcaraz Chloride [Moles/Vol] 98 mmol/L Normal 98-107 [facility] Comment on above: Performed By: #### C MP, BNP #### [facility] [address] [address] [address] Duong Alcaraz CO2 [Moles/Vol] 29.7 mmol/L Normal 21.0-32.0 [place] Comment on above: Performed By: #### C MP, BNP #### [facility] [address] [address] [address] Duong Alcaraz Creatinine [Mass/Vol] 0.71 mg/dL Normal 0.55-1.02 [facility] Comment on above: Performed By: #### C MP, BNP #### [facility] [address] [address] [address] Duong Alcaraz EGFR-AF MALIAN >60 Normal >=60 [place] Comment on above: Performed By: #### C MP, BNP #### [facility] [address] [address] [address] Duong Alcraaz EGFR-NON AF MALIAN >60 Normal >=60 [facility] Comment on above: Performed By: #### C MP, BNP #### [facility] [address] [address] [address] Duong Alcaraz Globulin (S) [Mass/Vol] 3.8 g/dL Normal [facility] Comment on above: Performed By: #### C MP, BNP #### [facility] [address] [place] [address] Dr. Duong Alcaraz Glucose [Mass/Vol] 94 mg/dL Normal 74-106 [facility] Comment on above: Performed By: #### C MP, BNP #### [facility] [address] [address] [address] Duong Alcaraz Potassium [Moles/Vol] 3.7 mmol/L Normal 3.5-5.1 [facility] Comment on above: Performed By: #### C MP, BNP #### [facility] [address] [address] [address] Duong Alcaraz Protein [Mass/Vol] 7.2 g/dL Normal 6.4-8.2 [facility] Comment on above: Performed By: #### C MP, BNP #### [facility] [address] [address] [address] Duong Alcaraz Sodium [Moles/Vol] 132 mmol/L Critically low 136-145 [facility] Comment on above: Performed By: #### C MP, BNP #### [facility] [address] [address] [address] Duong Alcaraz Urea nitrogen [Mass/Vol] 14.0 mg/dL Normal 7.0-18.0 [facility] Comment on above: Performed By: #### C MP, BNP #### [facility] [address] [place], [place] [address] Dr. Duong Alcaraz Urea nitrogen/Creatinine [Mass ratio] 19.7 mg/mg Normal [facility] Comment on above: Performed By: #### C MP, BNP #### [facility] [address] [place], [place] [address] Dr. Duong Alcaraz ECHOCARDIO M/2D COMPLETEon 0 11-03-2021 ECHOCARDIO M/2D COMPLETE Patient: GLENIS PEREZ Exam Date: 11/03/2021 : 1950 Gender:F Ordering : PRAUL FITZPATRICK Admission #: [id number] Family : DR ANDIE FORDE . Order #: [id number] CLICK HERE TO VIEW EXAM ECHOCARDIOGRAM REPORT [...] M.D. on 11/03/2021 at 21:34 Normal [facility] BNPon 10-04-2021 Natriuretic peptide B (Bld) [Mass/Vol] 200.0 pg/mL Normal <=900.0 [facility] Comment on above: Performed By: #### B HELMINTHOLOGIST, TSH, LIPID, CMP, T7 ####[facility] [address] [place], [place] [address]PxDr. Duong Alcaraz CBC AUTO DIFFon 10-04-2021 BASO # 0.1 103/ul Normal 0.0-0.1 [facility] Comment on above: Performed By: #### C BC #### [facility] [address] [address] [address] Duong Alcaraz Basophils/100 WBC (Bld) 1.2 % Normal 0.2-2.0 [facility] Comment on above: Performed By: #### C BC #### [facility] [address] [address] [address] Duong Alcaraz EO # 0.1 103/ul Normal 0.0-0.7 [facility] Comment on above: Performed By: #### C BC #### [facility] [address] [place] [address] Dr. Duong Alcaraz Eosinophils/100 WBC (Bld) 2.8 % Normal 0.9-7.0 [facility] Comment on above: Performed By: #### C BC #### [facility] [address] [place] [address] Dr. Duong Alcaraz Erythrocyte distribution width (RBC) [Ratio] 12.2 % Normal 11.0-15.0 [facility] Comment on above: Performed By: #### C BC #### [facility] [address] [place] [address] Dr. Duong Alcaraz Hematocrit (Bld) [Volume fraction] 37.0 % Normal 36.0-48.0 [facility] Comment on above: Performed By: #### C BC #### [facility] [address] [place] [address] Dr. Duong Alcaraz Hemoglobin (Bld) [Mass/Vol] 12.6 g/dL Normal 12.0-16.0 [facility] Comment on above: Performed By: #### C BC #### [facility] [address] [place] [address] Dr. Duong Alcaraz IG # 0.03 10e3/ul Normal 0.00-0.03 [facility] Comment on above: Performed By: #### C BC #### [facility] [address] [place] [address] Dr. Duong Alcaraz IG % 0.7 % Critically high 0.0-0.[address] [facility] Comment on above: Performed By: #### C BC #### [facility] [address] [place] [address] Dr. Duong Alcaraz LYMPH # 0.7 103/ul Critically low 1.2-3.8 [facility] Comment on above: Performed By: #### C BC #### [facility] [address] [place] [address] Dr. Duong Alcaraz Lymphocytes/100 WBC (Bld) 16.0 % Critically low 20.5-60.0 [facility] Comment on above: Performed By: #### C BC #### [facility] [address] [place] [address] Dr. Duong Alcaraz MANUAL DIFF REQ NO Normal [facility] Comment on above: Performed By: #### C BC #### [facility] [address] [place] [address] Dr. Duong Alcaraz MCH (RBC) [Entitic mass] 31.4 pg Normal 26.7-34.0 [facility] Comment on above: Performed By: #### C BC #### [facility] [address] [place] [address] Dr. Duong Alcaraz MCHC (RBC) [Mass/Vol] 34.1 g/dL Normal 29.9-35.2 [facility] Comment on above: Performed By: #### C BC #### [facility] [address] [place] [address] Dr. Duong Alcaraz MCV (RBC) [Entitic vol] 92.3 fL Normal 81.0-99.0 [facility] Comment on above: Performed By: #### C BC #### [facility] [address] [place] [address] Dr. Duong Alcaraz MONO # 0.5 103/ul Normal 0.3-0.8 [facility] Comment on above: Performed By: #### C BC #### [facility] [address] [place] [address] Dr. Duong Alcaraz Monocytes/100 WBC (Bld) 11.5 % Normal 1.7-12.0 [facility] Comment on above: Performed By: #### C BC #### [facility] [address] [place] [address] Dr. Duong Alcaraz NEUT # 2.9 103/ul Normal 1.4-6.5 [facility] Comment on above: Performed By: #### C BC #### [facility] [address] [place] [address] Dr. Duong Alcaraz Neutrophils/100 WBC (Bld) 67.8 % Normal 43.0-75.0 [facility] Comment on above: Performed By: #### C BC #### [facility] [address] [address] [address] Duong Alcaraz Platelet mean volume (Bld) [Entitic vol] 8.2 fL Critically low 9.5-13.5 [facility] Comment on above: Performed By: #### C BC #### [facility] [address] [address] [address] Duong Alcaraz PLT 191 103/ul Normal 150-450 [facility] Comment on above: Performed By: #### C BC #### [facility] [address] [address] [address] Duong Alcaraz RBC 4.01 106/ul Critically low 4.20-5.[address] [facility] Comment on above: Performed By: #### C BC #### [facility] [address] [address] [address] Duong Alcaraz WBC 4.3 103/ul Normal 4.0-11.0 [facility] Comment on above: Performed By: #### C BC #### [facility] [address] [address] [address] Duong Alcaraz FREE THYROXINE INDEX T7on FTI 3.01 Normal 1.30-4.50 [facility] Comment on above: Performed By: #### B HELMINTHOLOGIST, TSH, LIPID, CMP, T7 ####[facility] [address] [id number]. Duong Alcaraz T3U 35.0 % Normal 30.0-39.0 [facility] Comment on above: Performed By: #### B HELMINTHOLOGIST, TSH, LIPID, CMP, T7 ####[facility] [address] [place], [place] [address]KqDr. Duong Alcaraz T4 [Mass/Vol] 8.60 ug/dL Normal 4.80-13.90 [facility] Comment on above: Performed By: #### B HELMINTHOLOGIST, TSH, LIPID, CMP, T7 ####[facility] [address] [phone]. Duong Alcaraz GLYCOHEMOGLOBIN A1Con 2021 ADA RECOMMENDATION SEE BELOW Normal [facility] Comment on above: Result Comment: ADA RECOMMENDED LIMIT 4.0 - 6.0 ADA THERAPEUTIC TARGET < 7.0 ACTION SUGGESTED > 7.0 Performed By: #### A 1C #### [facility] [address] [address] [address] Duong Alcaraz Glucose [Mass/Vol] 108 mg/dL Normal [facility] Comment on above: Performed By: #### A 1C #### [facility] [address] [address] [address] Duong Alcaraz HbA1c (Bld) [Mass fraction] 5.4 % Normal 4.5-6.2 [facility] Comment on above: Performed By: #### A 1C #### [facility] [address] [address] [address] Duong Alcaraz IRONon 10-04-2021 Iron [Mass/Vol] 93.0 ug/dL Normal 50.0-170.[address] [facility] Comment on above: Performed By: #### I SHARRON ####[facility] [address] [id number] Alcaraz LIPID PROFILEon 10-04-2021 CHOL-HDL RATIO NORM SEE BELOW Normal [facility] Comment on above: Result Comment: 3.3 - 4.4 LOW RISK 4.4 - 7.1 AVERAGE RISK 7.1 - 11.0 MODERATE RISK >11.0 HIGH RISK Performed By: #### B HELMINTHOLOGIST, TSH, LIPID, CMP, T7 ####[facility] [address] [place], [place] [address]WeClovis Alcaraz Cholesterol [Mass/Vol] 182 mg/dL Normal <=200 [facility] Comment on above: Performed By: #### B HELMINTHOLOGIST, TSH, LIPID, CMP, T7 ####[facility] [address] [place], [place] [address]ZsClovis Alcaraz Cholesterol in HDL [Mass/Vol] 69 mg/dL Critically high 40-60 [facility] Comment on above: Performed By: #### B HELMINTHOLOGIST, TSH, LIPID, CMP, T7 ####[facility] [address] [place], [place] [address]PkDr. Duong Alcaraz Cholesterol in LDL [Mass/Vol] 107.6 mg/dL Normal [facility] Comment on above: Performed By: #### B HELMINTHOLOGIST, TSH, LIPID, CMP, T7 ####[facility] [address] [address]Dr. Duong Alcaraz Cholesterol.total/C holesterol in HDL [Mass ratio] 2.6 {ratio} Normal [facility] Comment on above: Performed By: #### B HELMINTHOLOGIST, TSH, LIPID, CMP, T7 ####[facility] [address] [address]Dr. Duong Alcaraz HDL NORMAL > or = 60 mg/dl - LO W CARDIOVASCULAR RISK <40 mg/dl - HIGH CARDIOVASCULAR RISK Normal [facility] Comment on above: Performed By: #### B HELMINTHOLOGIST, TSH, LIPID, CMP, T7 ####[facility] [address] [address]Dr. Duong Alcaraz LDL CALC NORMAL SEE BELOW Normal [facility] Comment on above: Result Comment: <100 mg/dl OPTIMAL 100 - 129 mg/dl NEAR OR ABOVE OPTIMAL 130 - 159 mg/dl BORDERLINE HIGH 160 - 189 mg/dl HIGH >190 mg/dl VERY HIGH Performed By: #### B HELMINTHOLOGIST, TSH, LIPID, CMP, T7 ####[facility] [address] [address]Dr. Duong Alcaraz Triglyceride [Mass/Vol] 27 mg/dL Normal <=150 [facility] Comment on above: Performed By: #### B HELMINTHOLOGIST, TSH, LIPID, CMP, T7 ####[facility] [address] [address]Dr. Duong Alcaraz VLDL CALC 5.4 mg/dL Normal [facility] Comment on above: Performed By: #### B HELMINTHOLOGIST, TSH, LIPID, CMP, T7 ####[facility] [address] [address]Dr. Duong Alcaraz PROF 14(COMP METB)on 022 Albumin [Mass/Vol] 3.5 g/dL Normal 3.4-5.0 [facility] Comment on above: Performed By: #### B HELMINTHOLOGIST, TSH, LIPID, CMP, T7 #### [facility] [address] [address] [address] Duong Alcaraz Albumin/Globulin [Mass ratio] 1.0 {ratio} Normal [facility] Comment on above: Performed By: #### B HELMINTHOLOGIST, TSH, LIPID, CMP, T7 #### [facility] [address] [place] [address] Dr. Duong Alcaraz ALP [Catalytic activity/Vol] 34 U/L Critically low 46-116 [facility] Comment on above: Performed By: #### B HELMINTHOLOGIST, TSH, LIPID, CMP, T7 #### [facility] [address] [place] [address] Dr. Duong Alcaraz ALT [Catalytic activity/Vol] 22 U/L Normal 14-59 [facility] Comment on above: Performed By: #### B HELMINTHOLOGIST, TSH, LIPID, CMP, T7 #### [facility] [address] [place] [address] Dr. Duong Alcaraz Anion gap [Moles/Vol] 12.3 mmol/L Normal [facility] Comment on above: Performed By: #### B HELMINTHOLOGIST, TSH, LIPID, CMP, T7 #### [facility] [address] [place] [address] Dr. Duong Alcaraz AST [Catalytic activity/Vol] 19 U/L Normal 15-37 [facility] Comment on above: Performed By: #### B HELMINTHOLOGIST, TSH, LIPID, CMP, T7 #### [facility] [address] [place] [address] Dr. Duong Alcaraz Bilirubin [Mass/Vol] 0.6 mg/dL Normal 0.2-1.0 [facility] Comment on above: Performed By: #### B HELMINTHOLOGIST, TSH, LIPID, CMP, T7 #### [facility] [address] [place] [address] Dr. Duong Alcaraz Calcium [Mass/Vol] 8.5 mg/dL Normal 8.5-10.1 [facility] Comment on above: Performed By: #### B HELMINTHOLOGIST, TSH, LIPID, CMP, T7 #### [facility] [address] [place] [address] Dr. Duong Alcaraz Chloride [Moles/Vol] 101 mmol/L Normal 98-107 [facility] Comment on above: Performed By: #### B HELMINTHOLOGIST, TSH, LIPID, CMP, T7 #### [facility] [address] [place] [address] Dr. Duong Alcaraz CO2 [Moles/Vol] 25.3 mmol/L Normal 21.0-32.0 [place] Comment on above: Performed By: #### B HELMINTHOLOGIST, TSH, LIPID, CMP, T7 #### [facility] [address] [place] [address] Dr. Duong Alcaraz Creatinine [Mass/Vol] 0.64 mg/dL Normal 0.55-1.02 [facility] Comment on above: Performed By: #### B HELMINTHOLOGIST, TSH, LIPID, CMP, T7 #### [facility] [address] [place] [address] Dr. Duong Alcaraz EGFR-AF MALIAN >60 Normal >=60 [place] Comment on above: Performed By: #### B HELMINTHOLOGIST, TSH, LIPID, CMP, T7 #### [facility] [address] [place] [address] Dr. Duong Alcaraz EGFR-NON AF MALIAN >60 Normal >=60 [facility] Comment on above: Performed By: #### B HELMINTHOLOGIST, TSH, LIPID, CMP, T7 #### [facility] [address] [place] [address] Dr. Duong Alcaraz Globulin (S) [Mass/Vol] 3.4 g/dL Normal [facility] Comment on above: Performed By: #### B HELMINTHOLOGIST, TSH, LIPID, CMP, T7 #### [facility] [address] [place] [address] Dr. Duong Alcaraz Glucose [Mass/Vol] 91 mg/dL Normal 74-106 [facility] Comment on above: Performed By: #### B HELMINTHOLOGIST, TSH, LIPID, CMP, T7 #### [facility] [address] [place] [address] Dr. Duong Alcaraz Potassium [Moles/Vol] 4.6 mmol/L Normal 3.5-5.1 [facility] Comment on above: Performed By: #### B HELMINTHOLOGIST, TSH, LIPID, CMP, T7 #### [facility] [address] [address] [address] Duong Alcaraz Protein [Mass/Vol] 6.9 g/dL Normal 6.4-8.2 [facility] Comment on above: Performed By: #### B HELMINTHOLOGIST, TSH, LIPID, CMP, T7 #### [facility] [address] [address] [address] Duong Alcaraz Sodium [Moles/Vol] 134 mmol/L Critically low 136-145 [facility] Comment on above: Performed By: #### B HELMINTHOLOGIST, TSH, LIPID, CMP, T7 #### [facility] [address] [address] [address] Duong Alcaraz Urea nitrogen [Mass/Vol] 11.0 mg/dL Normal 7.0-18.0 [facility] Comment on above: Performed By: #### B HELMINTHOLOGIST, TSH, LIPID, CMP, T7 #### [facility] [address] [address] [address] Duong Alcaraz Urea nitrogen/Creatinine [Mass ratio] 17.2 mg/mg Normal [facility] Comment on above: Performed By: #### B HELMINTHOLOGIST, TSH, LIPID, CMP, T7 #### [facility] [address] [address] [address] Duong Alcaraz TSHon 10-04-2021 TSH 1.568 uIU/mL Normal 0.358-3.740 [facility] Comment on above: Performed By: #### B HELMINTHOLOGIST, TSH, LIPID, CMP, T7 ####[facility] [address] [address]Dr. Duong Alcaraz TSH RANGE SEE BELOW Normal [facility] Comment on above: Result Comment: <0.3 4 UIU/ml HYPERTHYROID 0.34-5.60 UIU/ml EUTHYROID >5.60 UIU/ml HYPOTHYROID Performed By: #### B HELMINTHOLOGIST, TSH, LIPID, CMP, T7 ####[facility] [address] [id number]. Duong Alcaraz MG MAMM SCREEN 3D ALONSO CADon 09-15-2021 MG MAMM SCREEN 3D ALONSO CAD Patient: GLENIS PEREZ Exam Date: 09/15/2021 : 1950 Gender:F Ordering : DR ANDIE FORDE . Admission #: [id number] Family : Order #: [id number] CLICK HERE TO VIEW EXAM RADIOLOGY REPORT [...] Treatments None Family Cancers None LOCATION: [facility] BREAST COMPOSITION: Heterogeneously dense,which may obscure small [...] M.D. on 09/15/2021 at 15:08 Normal [facility] XR DEXA BONE DENSITYon 09-15 XR DEXA [...] GRANT ORTEGA Date: 2021-09-15 08:58 Normal [facility] Cardiovascular Lab Reporton 11-12-[address] [facility] Patient Name: Glenis Perez [facility] MR #: [id number] Physician: Doe Velez, Department of M.D. Medicine Service Date: 11/11/2020 Division of Birthdate: 1950 Cardiology Room #: [facility] Cardiovascular Services [facility] [address] [facility]. [place] [address] Cardiovascular Laboratory Report CLINICAL PRESENTATION: The patient [...] left radial artery. Using ultrasound guidance, a 6-Namibian Terumo Glidesheath slender was placed in the left radial artery. The radial anti-vasospasm cocktail of nitroglycerin 200 mcg and verapamil 2.5 mg was administered through the sheath. All catheter exchanges were made over the Magic Torque guidewire. A 5-Namibian JR4 used to engage the right coronary artery. A 5-Namibian JL4 used to engage the left main [...] Velez M.D. Date Trans: 11/12/2020 05:34 Vinny/viri [id number] cc: Siddharth Nolasco MD Dept Of Cardiology [address] [facility] [address] Andie Forde M.D. [address] [facility] [address] Parul Fitzpatrick, INFORMATION OFFICER [address] [facility] Mailstop [address] [facility] [address] Normal [facility] Formson 08-26-2020 Forms [id number]:127 Normal [facility] Physician Referralon 021 Physician Referral [id number]:127 Normal [facility] Ambulatory Clinical Summaryo n 08-25-2020 Ambulatory Clinical Summary {[id number] Normal [facility] Patient Educationon 08-26-19 21 Patient Education Urinary Tract Infection Urinary tract [...] Document Reviewed: 05/18/2012 ExitCare? Patient Information ?2013 [employer]. [place] [facility] Urology Office/Clinic Noteon 08-25-2020 Urology Office/Clinic Note Chief Complaint New patient cystocele This 69-year-old female is being scheduled for cystocele repair by her systems qa analyst. 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 She is here today to make arrangements for cystoscopy with bilateral ureteral stent placement. I have reviewed the notes from her referring physician. HPI Staff New patient Glenis is a 69 y.o. female referred by Dr. Barobsa for cystocele. She has a history of [...] Urnls Dip Stick Auto w/o Microscopy POC 04116 Urology Procedure Order 2. UTI (urinary tract infection) (N39.0: Urinary tract infection, site not specified) UA today appears to be infected with positive nitrate. Will start pt. on Cipro 500mg bid, #6. Script sent to [facility] in [place]. Ordered: Urology Procedure Order 3. Microscopic hematuria (R31.29: Other microscopic hematuria) UA today - trace intact. Ordered: Urology Procedure Order Orders: ciprofloxacin, 500 mg = 1 tab(s), Oral, q12hr, X 3 day(s), # 6 tab(s), Refills(s) 0, Pharmacy: [facility], 160, cm, 08/25/20 11:31:00 EDT, Height/Length Dosing, 75.6, kg, 08/25/20 11:31:00 EDT, Weight Dosing I have reviewed the previous health record information and history for this pt. from Dr. Gonzalez. Follow-up With When Contact Information Carlos Alvarado MD, Dallin Malik, [facility] [address] [place] [address] [place] [address]- Additional Instructions: Patient Education Urinary Tract Infection I, Negra [place] (more content not included)... Normal [facility] Comment on above: Result Comment: Elec tronically Signed By: Carlos Alvarado MD, Dallin Malik\.br\Date and Time Signed: 08/25/20 13:08 EDT\.br\Electronically Co-Signed By: Negra Mccullough MA\.br\Date and Time Co-Signed: 08/25/20 11:50 EDT Vital Signs Date Time Vital Sign Value Performing Clinician Facility 02-27-2023 10:15-0500 Body height 161.29 cm Tomás Elma Other [facility] Other 11-28-2022 11:00-0400 Body height 161.29 cm Tomás Elma Other [facility] Other 11-28-2022 11:00-0400 Body mass index (BMI) [Ratio] 27.55 kg/m2 Tomás Elma Other [facility] Other 11-28-2022 11:00-0400 Body weight 71.67 kg Tomás Elma Other [facility] Other 09-28-2022 13:15-0400 Body height 161.29 cm Tomás Elma Other [facility] Other 09-28-2022 13:15-0400 Body mass index (BMI) [Ratio] 27.9 kg/m2 Tomás Elma Other [facility] Other 09-28-2022 13:15-0400 Body weight 72.58 kg Tomás Elma Other [facility] Other 04-22-2022 16:30-0500 Body height 161.29 cm Linda Hall Other [facility] Other 04-22-2022 16:30-0500 Body mass index (BMI) [Ratio] 27.02 kg/m2 Linda Hall Other [facility] Other 04-22-2022 16:30-0500 Body temperature 96.4 [degF] Linda Hall Other [facility] Other 04-22-2022 16:30-0500 Body weight 70.31 kg Linda Hall Other [facility] Other 04-22-2022 16:30-0500 Respiratory rate 18 /min Linda Hall Other [facility] Other 04-22-2022 16:30-0500 SaO2% (BldA) [Mass fraction] 98 % Linda Hall Other [facility] Other Encounters Encounter Date Encounter Type Care Provider Facility Start: 07-13-2023 End: 07-13-2023 ambulatory FRANK RAUSCHKES Not Available Start: 04-04-2023 End: 04-04-2023 ambulatory FRANK RAUSCHKES Not Available Start: 02-27-2023 Office outpatient visit 15 minutes [facility] Start: 02-27-2023 End: 02-27-2023 ambulatory Tomás Wills [facility] Other Start: 01-18-2023 End: 01-18-2023 ambulatory Tomás Wills Other [facility] Other Start: 01-18-2023 Telephone encounter Tomás Elma [facility] Start: 01-04-2023 End: 01-04-20[facility] Start: 12-28-2022 End: 12-28-2022 ambulatory Tomás Wills Other [facility] Other Start: 12-28-2022 Telephone encounter Tomás CHRISTENSEN [facility] Start: 11-28-2022 End: 11-28-2022 ambulatory Tomás Wills Other [facility] Other Start: 11-28-2022 Postop follow up vis it related to original px Tomás Elma [facility] Start: 09-28-2022 End: 09-28-2022 ambulatory Tomás Wills Other [facility] Other Start: 09-28-2022 Postop follow up vis it related to original px Tomás Wills [facility] Start: 09-23-2022 End: 09-23-2022 ambulatory Tomás Wills Other [facility] Other Start: 09-23-2022 Telephone encounter Tomás CHRISTENSEN [facility] Start: 09-13-2022 End: 09-13-2022 ambulatory Andie Forde Facility:[facility] Start: 08-24-2022 End: 08-24-2022 ambulatory Tomás Wills Facility:[facility] Start: 08-19-2022 End: 08-20-[address] ANDIE FORDE . Facility:[facility] Start: 08-12-2022 End: 08-12-2022 ambulatory Tomás Wills Facility:[facility] Start: 08-03-2022 End: 08-03-2022 ambulatory PARUL [facility] Start: 07-04-2022 End: 07-05-[address] ANDIE FORDE . Facility:[facility] Start: 06-22-2022 End: 06-23-[address] ANDIE FORDE . Facility:[facility] Start: 05-04-2022 End: 05-04-2022 ambulatory SABINECOLTONJudd [facility] Start: 04-22-2022 End: 04-22-2022 ambulatory Linda Hall Other [facility] [employer] Other Start: 04-22-2022 Office outpatient ne w [...] Start: 11-11-2020 End: 11-12-2020 ambulatory DOE VELEZ Facility:[facility] Procedures Date Procedure Procedure Detail Performing Clinician Start: 08-03-2022 Follow-up visit Follow-up PARUL FITZPATRICK Payers Date Payer Category Payer Self-pay 1961 Medicare [id number] 1961 Unknown [id number] 1950 Unknown [id number] 2.16.8 40.1.125024.3.579.2.647 1950 Unknown [id number] 2.16.84 0.1.819326.3.579.2.593 1950 Unknown [id number] 2.16.84 0.1.054882.3.579.2.593 1950 Unknown [id number] 2.16.84 0.1.351047.3.579.2.593 1950 Unknown [id number] 2.16.84 0.1.079497.3.579.2.593 1950 Unknown [id number] 2.16.84 0.1.766843.3.579.2.593 1950 Unknown [id number] 2.16.84 0.1.410401.3.579.2.593 1950 Unknown [id number] 2.16.84 0.1.902410.3.579.2.593 1950 Unknown [id number] 2.16.84 0.1.268248.3.579.2.593 1950 Unknown [id number] 2.16.84 0.1.264107.3.579.2.593 1950 Unknown [id number] 2.16.84 0.1.260504.3.579.2.593 1950 Unknown [id number] 2.16.84 0.1.222134.3.579.2.593 1950 Unknown [id number] 2.16.84 0.1.502583.3.579.2.593 1950 Unknown [id number] 2.16.84 0.1.667036.3.579.2.1259 1950 Unknown [id number] 2.16.840 .1.643076.3.579.2.1259 Unknown [id number] 2.1 6.840.1.393101.19 Unknown [id number] 2.16.8 40.1.339703.3.579.2.531 Unknown [id number] 2.16.8 40.1.823789.3.579.2.531 Unknown [id number] 2.16.8 40.1.710271.3.579.2.531 Unknown [id number] 2.16.8 40.1.006079.3.579.2.531 Social History Date Type Detail Facility Sex Assigned At [facility] Other Clinical Notes 04-22-2022 to 02-27-2023 Note [...] from surgery. Continue motion and strengthening exercises correction. Activity as tolerated. Call with questions/anuradha rns. Provided AAOS hand out on hip conditioning and IT band exercises. [facility] Other 09-13-2023 NotePatient here for 6 mo follow up hypertension, NSVT, and hyperlipidemia. Had left TKA after last apt and everything went well. She is doing great, as she denies chest pain, SOB, and palpitations. Review of Systems All other systems reviewed and are negative.[facility] 01-04-2023 NoteCardiovascular Medicine [facility] SUBJECTIVE Glenis Perez is a 72 [...] Final Atrial Rate 11/11/2020 51 BPM Final RI Interval 11/11/2020 172 ms Final QRS DURATION 11/11/2020 86 ms Final QT Interval 11/11/2020 418 ms Final QTC CALCULATION(BAZETT) 11/11/2020 385 ms Final P [place] 11/11/2020 16 degrees Final R-[place] 11/11/2020 -12 degrees Final T Wave [place] 11/11/2020 19 degrees Final Diagnosis 11/11/2020 Final [...] no significant coronary arter (more content not included)...[facility]09-06-2023 Evaluation note* Encounter Date Diagnosis Assessment Notes Treatment Notes Treatment Clinical Notes Dec, History of total left knee replacement (ICD-10 - Z96.652) [facility] Other 08-07-2023 Evaluation note* Encounter Date Diagnosis [...] total left knee replacement (ICD-10 - Z96.652) [facility] Other 06-07-2023 Evaluation note* Encounter Date Diagnosis [...] meniscus of left knee (ICD-10 - M23.307) [facility] Other 06-02-2023 Evaluation note* Encounter Date Diagnosis Assessment Notes Treatment Notes Treatment Clinical Notes Sep, Primary osteoarthritis of left knee (ICD-10 - M17.12) [facility] Other 04-12-2023 NoteReview of Systems Constitutional: Positive for malaise/fatigue. Tires easily. Cardiovascular: Negative. Musculoskeletal: Positive for arthritis and joint pain. Left knee arthroscopy scheduled for 08/30/2022. Glenis is here for a routine 4 month follow up. She scheduled early due to needing clearance for left knee replacement on August 30. Dr. Linda orellana/ [facility], in [place]. She believes she will be [facility]04-12-2023 NoteCardiovascular Medicine [facility] SUBJECTIVE Chief Complaint Patient presents with Follow-up [...] Final Atrial Rate 11/11/2020 51 BPM Final RI Interval 11/11/2020 172 ms Final QRS DURATION 11/11/2020 86 ms Final QT Interval 11/11/2020 418 ms Final QTC CALCULATION(BAZETT) 11/11/2020 385 ms Final P [place] 11/11/2020 16 degrees Final R-[place] 11/11/2020 -12 degrees Final T Wave [place] 11/11/2020 19 degrees Final Diagnosis 11/11/2020 Final Value:Sinus bradycardia Moderate voltage criteria for LVH, may be normal variant Nonspecific ST abnormality Abnormal ECG No previous ECGs available Confirmed (more content not included)...[facility] 06-22-2022 NotePROCEDURE: XR KNEE LT 4V or > COMPARISON: 04/09/2021 HISTORY: Pain of left knee joint FINDINGS: BONES:No acute fracture or dislocation. 7 mm osteochondral injury medial femoral condyle. Tricompartmental osteoarthropathy most significant in the medial compartment SOFT TISSUES:Negative. No visible soft tissue swelling. EFFUSION:None visible. OTHER: Negative. IMPRESSION: Osteochondral injury medial femoral condyle Electronically authenticated by: LISET MEZA Date: 2022-06-22 17:46[facility]01-11-2023 NoteSubjective Glenis Perez is a 71 y.o. [...] ventricular systolic function, LVEF at 65% -Dr. Fields, EP, recommendations: At the moment she has [...] Follow-[facility] in 3 months or [facility] NotePatient here for 4 mo follow up hypertension and NSVT. Says the lightheadedness has subsided. Denies chest pain and SOB. Hasn't had palpitations. LE edema resolves by morning. Patient states BP at home is rarely over 120 systolic. [facility]12-30-2022 Evaluation note* Encounter Date Diagnosis Assessment [...] treatment plan Mar, Headache (ICD-10 - R51.9) [facility] [employer] Other Evaluation noteNo InformationNortUniversity of Pennsylvania Health System [employer] Other History general Narrative - Reported* Type Description Date Medical History hx of hypertension Surgical History tubiligation Surgical History [place] [facility] Hospitalization History vaginal child x 3 [facility] [employer] Other Hisrogr general Narrative - Reported* Type Description Date Medical History hx of hypertension Medical History PVC Medical History osteoarthritis of the left knee Surgical History tubiligation Surgical History [place] Tooth Extraction Hospitalization History vaginal child x 3 [facility] [employer] Other History general Narrative - Reported* Type Description Date Medical History hx of hypertension Medical History PVC Medical History osteoarthritis of the left knee Surgical History tubiligation Surgical History [place] Tooth Extraction Surgical History left total knee arthroplasty Hospitalization History vaginal child x 3 Social Tables [facility] [employer] Other Summary Purpose Family History No Family [...] section and content) DATE CREATED AUTHOR 09/24/2020 [facility] DATE CREATED AUTHOR AUTHOR'S ORGANIZ ATION 11/18/2020 [facility] DATE CREATED AUTHOR AUTHOR'S ORGANIZ ATION 08/26/2022 [facility] DATE CREATED AUTHOR AUTHOR'S ORGANIZ ATION 01/25/2023 [facility] DATE CREATED AUTHOR AUTHOR'S ORGANIZ ATION 05/13/2023 [facility] DATE CREATED AUTHOR AUTHOR'S ORGANIZ ATION 07/15/2023 [facility] EPIC REASON FOR VISIT (unrecogniz ed section and [...] BE BASED ON THE PRIMARY CLINICAL RECORDS. [employer] provides no warranty or guarantee of the accuracy or completeness of information in this document.
[2023-10-18 13:12] LABS: Bilirubin Urine NEGATIVE (NEGATIVE); Blood Urine NEGATIVE (NEGATIVE); Clarity Urine CLEAR (CLEAR); Color Urine LT. YELLOW (YELLOW); Glucose Urine UA NEGATIVE (NEGATIVE); Ketones Urine NEGATIVE (NEGATIVE); Leukocyte Esterase Urine NEGATIVE (NEGATIVE); Nitrite Urine NEGATIVE (NEGATIVE); Protein Urine NEGATIVE (NEG/TRACE); Urobilinogen Urine 0.2 EU/dL (0.2-1.0)
[2023-10-18 13:30] LABS: Bacteria Urine TRACE #/HPF (NONE SEEN); RBC Urine NONE SEEN #/HPF (0-2); WBC Urine NONE SEEN #/HPF (NONE SEEN)
[2023-10-18 13:31] LABS: Cast Seen? NONE SEEN #/LPF (NONE SEEN); Crystals Seen? None Seen #/HPF (None Seen); Mucus Urine NONE SEEN (NONE SEEN); Squamous Epithelial Cell Urine NONE SEEN #/LPF (NONE/RARE); Urine Culture Indicated NO
== END 2023-10-18 12:20 | disposition home or self-care (01) ==
LOC: LAB 12:19
PROVIDERS: PCP Family Medicine; Visit Provider Family Medicine
DX: N39.0 Urinary tract infection, site not specified (principal)
CPT/HCPCS: 81001; 87086

== ENCOUNTER 2023-11-06 07:23 | Outpatient (RCR) | payer MEDICARE, OTHER, SELFPAY ==
[2023-11-06 09:22] LABS: Calcium 8.8 mg/dL (8.5-10.1); Estimated GFR (African America >60 (>=60); Estimated GFR (Non-African Ame >60 (>=60)
[2023-11-06 09:26] VITALS: BP 131/73; PULSE 64; TEMP 36.9; O2SAT 97
[2023-11-06] MEDS: DENOSUMAB 60 MG/ML SYRINGE SQ (09:35)
== END 2023-11-22 08:32 | disposition home or self-care (01) ==
LOC: INF 07:23
PROVIDERS: PCP Family Medicine; Visit Provider Family Medicine
DX: M81.0 Age-related osteoporosis without current pathological fracture (principal)
CPT/HCPCS: 36415; 82310; 82565; 96372; J0897

== ENCOUNTER 2024-01-11 10:53 | Outpatient (OUT) | payer MEDICARE, OTHER, SELFPAY ==
--- NOTE | 2024-01-11 10:57 | MM_ITS ---
Patient Name: LOYD ARELLANO MR#: [id number] : 1950 Exam Date: 01/11/2024 Ordering Doctor: DR Jesse Forde . RADIOLOGY REPORT PROCEDURE: MM TOMOSYNTHESIS SCREENING BI COMPARISON: MG MAMM SCREEN 3D ALONSO CAD, 09/15/2021. MG MAMM SCREEN ALONSO W CAD, 02/27/2019. INDICATIONS: breast cancer screening by mammogram Z12.31 Calculator Name NCI Breast Cancer Risk Assessment Tool 5 Year Breast Cancer Risk 1.60% Lifetime Breast Cancer Risk 3.40% Personal Breast Cancer No Personal Ovarian Cancer No Treatments None Family Cancers None LOCATION: [facility] BREAST COMPOSITION: The breasts are heterogeneously dense,which may obscure small masses. FINDINGS: DIAGNOSTIC CATEGORY 2--BENIGN FINDING. NO CHANGE FROM COMPARISON. Scattered benign-appearing lymph nodes are present. Scattered benign-appearing calcifications are present. Scattered benign-appearing nodules are present. RIGHT BREAST: No significant suspicious finding. LEFT BREAST: No significant suspicious finding. RECOMMENDATIONS: ROUTINE MAMMOGRAM AND CLINICAL EVALUATION IN 12 MONTHS. PLEASE NOTE: A NORMAL MAMMOGRAM DOES NOT EXCLUDE THE POSSIBILITY OF BREAST CANCER. A CLINICALLY SUSPICIOUS PALPABLE LUMP SHOULD BE BIOPSIED. Dictated by: Colt Patel MD on 01/11/2024 at 13:54 Approved by: Colt Patel MD on 01/11/2024 at 13:55
--- OUTSIDE RECORDS SUMMARY | 2024-01-11 11:07 | XMS_ITS | CCD ---
Author Organization [facility] Care Team Providers Care Water Conservation Specialist Name Role Phone DOE VELEZ Attending Unavailable [...] Unavailable HOY ., DR CHAVES Consulting Unavailable WAHIAWA, DR LISET Cuadra Consulting Unavailable HOY ., [...] OWEN Consulting Unavailabl e Elma, Tomás Unavailable Elma, Tomás A Admitting Unavailable Hoy, [...] Admitting Unavailable Elma, Tomás A Attending Unavailable PHIL, FRANK E Attending Unavailable RINJULIAN, FRANK E Attending Unavailable RINKES, FRANK E Attending Unavailable TATIANNA ARANA Attending Unavailable Allergies Allergy Classification Reported Allergen(s) Allergy Type Date of Onset Reaction(s) Facility Penicillins (antibiotic) (1 source) Penicillin Drug Allergy 1 [facility] Repository Tetracyclines (antibiotic) (1 source) Tetracyclines Drug Allergy 1 [facility] Repository (7 sources) Penicillin Drug Allergy Unknown [employer] Other (8 sources) Tetracycline; Translations: [TETRACYCLINE] Drug Allergy 2 [facility] Repository (2 sources) Penicillins; Translations: [PENICILLINS] Drug allergy (disorder) 4 [facility] Repository (1 source) Tetracycline Drug Allergy 4 [facility] Repository (1 source) Penicillins Drug allergy (disorder) 3 [facility] Repository (1 source) Tetracycline Drug Allergy 3 [facility] Repository Medications Current Medications Medication Drug [...] Not-Taking Start: 09-09-2022 take 1 capsule by [facility] every twelve hours Clindamycin HCl 300 MG [...] Date Documented Da te Episodic/Chronic Cardiac dysrhythmias (6 sources) Ventricular tachycardia; Translations: [Ventricular premature depolarization] Onset: 11-03-2021 Chronic Congestive heart failure; nonhypertensive (1 source) Unspecified diastolic (congestive) heart failure; Translations: [UNSPECIFIED DIASTOLIC HEART FAILURE] Onset: 11-18-2021 Chronic Disorders of lipid metabolism (1 source) Hyperlipidemia, unspecified; Translations: [HYPERLIPIDEMIA UNSPECIFIED] Onset: 10-06-2021 Chronic Essential hypertension (7 sources) Essential (primary) hypertension; Translations: [ESSENTIAL PRIMARY HYPERTENSION] Onset: 10-06-2021 Chronic Fluid and electrolyte disorders [...] source) Other specified postprocedural states Episodic Unclassified (1 source) Presence of left artificial [...] [Encounter for preprocedural laboratory examination] Onset: 08-12-2022 Unclassified (1 source) Other ventricular tachycardia; Translations: [Other ventricular tachycardia] Onset: 12-29-2021 Urinary tract infections (7 sources) Urinary tract [...] Translations: [SYNCOPE AND COLLAPSE] Onset: 10-06-2021 Episodic Unclassified (1 source) Other ventricular tachycardia; Translations: [Other ventricular tachycardia] Onset: 01-08-2024 Results Test Name Value Interpretation Reference Range Facility Office Visiton 01-08-2024 Follow-up visit [id number] Glenis Perez 1950 F Date Provider Department Center 01/08/2024 [facility]-TATIANNA ARANA Family History Problem Relation Age of Onset Heart attack Mother Coronary artery disease Mother Other Brother Family Status - Relation Status Age at Mother Brother Level of Service:02032 MI OFFICE/OUTPATIENT ESTABLISHED SF MDM 10 MIN Normal [facility] XR knee LT 2Von 02-27-2023 XR knee LT 2V [facility] [address] [place] [address] XRay Report Signed Patient: Glenis Perez MR#: [id number] 42 : 1950 Acct:[id number] Age/Sex: 72 / F ADM Date: 02/27/23 Loc: [facility] Room: Type: [facility] CLI Attending Dr: Tomás Wills DO Copies [...] Raúl Woo M.D.02/27/2023 3:08 PM Dictation Location: [place] [address] Transcribed By: [facility] 02/27/23 1508 Dictated By: Raúl Woo DO 02/27/23 1508 Signed By: 02/27/23 1508 Normal [facility] XR knee LT 2V [facility] [employer] Other XR knee LT 2V [facility] [employer] Other XR knee LT 2V [address] [facility] [employer] Other XR knee LT 2[place] [address] [facility] [employer] Other XR knee LT 2V XRay Report [facility] [employer] Other XR knee LT 2V Signed [facility] [employer] Other XR knee LT 2V Patient: Glenis Perez MR#: [id number] [facility] [employer] Other XR knee LT 2V 42 [facility] [employer] Other XR knee LT 2V : 1950 Acct:[id number] [employer] Other XR knee LT 2V Age/Sex: 72 / F ADM Date: 02/27/23 [employer] Other XR knee LT 2V Loc: [facility] Room: Type : [facility] [employer] Other XR knee LT 2V Attending Dr: Tomás Wills DO [employer] Other XR knee LT 2V Copies to: Tomás Wills DO [employer] Other XR knee LT 2V Ordering Provider: Tomás Wills DO [employer] Other XR knee LT 2V Date of Service: 02/27/23 [employer] Other XR knee LT 2V XR/XR knee LT 2V: Status post total left knee replacement [employer] Other XR knee LT 2V 2 views LEFT knee plain film [employer] Other XR knee LT 2V COMPARISON: 09/13/22 [employer] Other XR knee LT 2V HISTORY: Status post LEFT total knee arthroplasty [employer] Other XR knee LT 2V ACUTE FINDINGS: None [employer] Other XR knee LT 2V DEGENERATIVE CHANGE: Unremarkable [employer] Other XR knee LT 2V SOFT TISSUE FINDINGS : Unremarkable [employer] Other XR knee LT 2V JOINT EFFUSION: None [employer] Other XR knee LT 2V POSTOP CHANGES: Stable hardware [employer] Other XR knee LT 2V BONE MINERALIZATION: Adequate [employer] Other XR knee LT 2V XR/XR knee LT 2V [employer] Other XR knee LT 2V IMPRESSION: Uncomplicated LEFT knee arthroplasty [employer] Other XR knee LT 2V Impression dictated by: Raúl Woo M.D.02/27/2023 3:08 PM [employer] Other XR knee LT 2V Dictation Location: [place] [address] [employer] Other XR knee LT 2V Transcribed By: PWS 02/27/23 [facility] [employer] Other XR knee LT 2V Dictated By: Raúl Woo DO 02/27/23 [facility] [employer] Other XR knee LT 2V Signed By: [employer] Other XR knee LT 2V 02/27/23 [facility]4 [employer] Other [place] 09-13-2022 L - -------- Specimen: [id number] Received: 09/13/22 Status: LUZ Lynn Num: [id number] Spec Type: Surgical Subm Dr: Tomás Wills DO Tissues: A Joint/Knee (LT KNEE) Procedures: Gross/Micro L4, Decalcification -------- Age/ Patient Sex Location Account Attending Physician -------- Glenis Perez Ann 71/F ID [id number] Tomás Wills DO -------- SPEC NUM: [id number] RECD: 09/13/22 STATUS: LUZ LYNN NUM: [id number] SETH: 09/13/22- [facility] DR: Tomás Wills DO ENTERED: 09/13/22 [facility] DR: ANDREW TYPE: Surgical DEPT: S [...] is taken. Gross examination only. CPT Codes 12802 Gross Photo -------- -------- Specimen: [id number] Received: 09/13/22 Status: LUZ Rogelzaina Num: [id number] Spec Type: Surgical Subm Dr: Tomás Wills DO Tissues: A Joint/Knee (LT KNEE) Procedures: Gross/Micro L4, Decalcification -------- Patient: Glenis Perez Ann [id number] (Continued) -------- Signed (signature on file) Kendra Guzman MD 09/14/22 1033 Normal [facility] XR knee LT 2Von 09-13-2022 XR knee LT 2V [address] [address] XRay Report Signed Patient: Glenis Perez MR#: [id number] 40 : 1950 Acct:[id number] Age/Sex: 71 / F ADM Date: 09/13/22 Loc: ID Room: Type: [facility] Attending Dr: Tomás Wills DO [...] Sameer Guy M.D.09/13/2022 3:01 PM Dictation Location: [place] [address] Transcribed By: [facility] 09/13/22 1501 Dictated By: Sameer Guy II, MD 09/13/22 1500 Signed By: 09/13/22 1501 Normal [facility] PROF CHEM 8 (BAS METB)on Anion gap [Moles/Vol] 10.3 mmol/L Normal [facility] Comment on above: Performed By: #### B MP #### [facility] [address] [place] [address] [address] Duong Alcaraz Calcium [Mass/Vol] 9.3 mg/dL Normal 8.5-10.1 [facility] Comment on above: Performed By: #### B MP #### [facility] [address] [place] [address] [address] Duong Alcaraz Chloride [Moles/Vol] 95 mmol/L Critically low 98-107 [facility] Comment on above: Performed By: #### B MP #### [facility] [address] [place] [address] [address] Duong Alcaraz CO2 [Moles/Vol] 30.6 mmol/L Normal 21.0-32.0 [facility] Comment on above: Performed By: #### B MP #### [facility] [address] [place] [address] [address] Duong Alcaraz Creatinine [Mass/Vol] 0.69 mg/dL Normal 0.55-1.02 [facility] Comment on above: Performed By: #### B MP #### [facility] [address] [place] [address] [address] Duong Alcaraz EGFR-AF EMIRATI >60 Normal >=60 [facility] Comment on above: Performed By: #### B MP #### [facility] [address] [place] [address] [address] Duong Alcaraz EGFR-NON AF EMIRATI >60 Normal >=60 [facility] Comment on above: Performed By: #### B MP #### [facility] [address] [place] [address] [address] Duong Alcaraz Glucose [Mass/Vol] 83 mg/dL Normal 74-106 [facility] Comment on above: Performed By: #### B MP #### [facility] [address] [place] [address] [address] Duong Alcaraz Potassium [Moles/Vol] 3.9 mmol/L Normal 3.5-5.1 [facility] Comment on above: Performed By: #### B MP #### [facility] [address] [place] [address] [address] Duong Alcaraz Sodium [Moles/Vol] 132 mmol/L Critically low 136-145 [facility] Comment on above: Performed By: #### B MP #### [facility] [address] [place] [address] [address] Duong Alcaraz Urea nitrogen [Mass/Vol] 12.0 mg/dL Normal 7.0-18.0 [facility] Comment on above: Performed By: #### B MP #### [facility] [address] [place] [address] Dr. Duong Alcaraz Urea nitrogen/Creatinine [Mass ratio] 17.4 mg/mg Normal [facility] Comment on above: Performed By: #### B MP #### [facility] [address] [place] [address] [address] Duong Alcaraz CMP with reflex to A1Con Albumin [Mass/Vol] 3.9 g/dL Normal 3.5-5.7 [facility] Comment on above: Performed By: #### C BC, CMP wRFX A1C #### [address] Albumin/Globulin [Mass ratio] 1.5 {ratio} Normal [facility] Comment on above: Performed By: #### C BC, CMP wRFX A1C #### [address] ALP [Catalytic activity/Vol] 34 U/L Normal 34-104 [facility] Comment on above: Result Comment: PERF ORMED BY: [place] [address] PATHOLOGIST WORKFORCE CONSULTANT YAMILETH PERRY M.D. Performed By: #### C BC, CMP wRFX A1C #### [address] ALT [Catalytic activity/Vol] 14 U/L Normal 7-52 [facility] Comment on above: Performed By: #### C BC, CMP wRFX A1C #### [address] Anion gap [Moles/Vol] 11.1 mmol/L Normal 6.0-15.0 [facility] Comment on above: Performed By: #### C BC, CMP wRFX A1C #### [address] AST [Catalytic activity/Vol] 18 U/L Normal 13-39 [facility] Comment on above: Performed By: #### C BC, CMP wRFX A1C #### [place] [address] [place] Bilirubin [Mass/Vol] 0.6 mg/dL Normal 0.3-1.0 [facility] Comment on above: Performed By: #### C BC, CMP wRFX A1C #### [place] [address] [place] Calcium [Mass/Vol] 8.4 mg/dL Low 8.6-10.3 [facility] Comment on above: Performed By: #### C BC, CMP wRFX A1C #### [facility] [address] [place] [address] Chloride [Moles/Vol] 94 mmol/L Low 98-107 [facility] Comment on above: Performed By: #### C BC, CMP wRFX A1C #### [facility] [address] [place] [address] CO2 [Moles/Vol] 28.0 mmol/L Normal 21.0-31.0 [facility] Comment on above: Performed By: #### C BC, CMP wRFX A1C #### [address] Creatinine [Mass/Vol] 0.68 mg/dL Normal 0.60-1.20 [facility] Comment on above: Performed By: #### C BC, CMP wRFX A1C #### [place] [address] [place] GFR/1.73 sq M.predicted MDRD (S/P/Bld) [Vol rate/Area] mL/min/{1.73_m2} [facility] Comment on above: Performed By: #### C BC, CMP wRFX A1C #### [address] Globulin (S) [Mass/Vol] 2.6 g/dL Normal [facility] Comment on above: Performed By: #### C BC, CMP wRFX A1C #### [place] [address] [place] Glucose [Mass/Vol] 88 mg/dL Normal 70-100 [facility] Comment on above: Performed By: #### C BC, CMP wRFX A1C #### [facility] [address] [place] [address] Potassium [Moles/Vol] 4.1 mmol/L Normal 3.5-5.1 [facility] Comment on above: Performed By: #### C BC, CMP wRFX A1C #### [facility] [address] Protein [Mass/Vol] 6.5 g/dL Normal 6.4-8.9 [facility] Comment on above: Performed By: #### C BC, CMP wRFX A1C #### [facility] [address] Sodium [Moles/Vol] 129 mmol/L Low 136-145 [facility] Comment on above: Performed By: #### C BC, CMP wRFX A1C #### [facility] [address] Urea nitrogen [Mass/Vol] 19 mg/dL Normal 7-25 [facility] Comment on above: Performed By: #### C BC, CMP wRFX A1C #### [facility] [address] Complete Blood Count Auto Di ffon 08-12-2022 Basophils (Bld) [#/Vol] 0.1 10*3/uL Normal 0.0-0.2 [facility] Comment on above: Result Comment: PERF ORMED BY: [place] [address] PATHOLOGIST WORKFORCE CONSULTANT YAMILETH PERRY M.D. Performed By: #### C BC, CMP wRFX A1C #### [place] [address] [place] Basophils/100 WBC (Bld) 1.3 % Normal . [facility] Comment on above: Performed By: #### C BC, CMP wRFX A1C #### [facility] [address] [place] [address] [place] Eosinophils (Bld) [#/Vol] 0.1 10*3/uL Normal 0.0-0.45 [facility] Comment on above: Performed By: #### C BC, CMP wRFX A1C #### [facility] [address] [place] [address] [place] Eosinophils/100 WBC (Bld) 1.6 % Normal . [facility] Comment on above: Performed By: #### C BC, CMP wRFX A1C #### [facility] [address] Erythrocyte distribution width (RBC) [Ratio] 13.6 % Normal 11.9-15.3 [facility] Comment on above: Performed By: #### C BC, CMP wRFX A1C #### [address] Hematocrit (Bld) [Volume fraction] 35.9 % Normal 34.0-46.4 [facility] Comment on above: Performed By: #### C BC, CMP wRFX A1C #### [address] Hemoglobin (Bld) [Mass/Vol] 12.6 g/dL Normal 11.8-15.4 [facility] Comment on above: Performed By: #### C BC, CMP wRFX A1C #### [address] Lymphocytes (Bld) [#/Vol] 0.7 10*3/uL Low 1.00-4.8 [facility] Comment on above: Performed By: #### C BC, CMP wRFX A1C #### [address] Lymphocytes/100 WBC (Bld) 14.6 % Normal . [facility] Comment on above: Performed By: #### C BC, CMP wRFX A1C #### [address] MCH (RBC) [Entitic mass] 31.8 pg Normal 24.7-34.3 [facility] Comment on above: Performed By: #### C BC, CMP wRFX A1C #### [address] MCV (RBC) [Entitic vol] 90.7 fL Normal 80-100 [facility] Comment on above: Performed By: #### C BC, CMP wRFX A1C #### [address] Mean Corpuscular HGB Conc 35.0 g/dL Normal 32.0-35.0 [facility] Comment on above: Performed By: #### C BC, CMP wRFX A1C #### [facility] [address] [place] [address] Monocytes (Bld) [#/Vol] 0.5 10*3/uL Normal 0.0-0.8 [facility] Comment on above: Performed By: #### C BC, CMP wRFX A1C #### [facility] [address] [place] [address] Monocytes/100 WBC (Bld) 10.4 % Normal . [facility] Comment on above: Performed By: #### C BC, CMP wRFX A1C #### [facility] [address] [place] [address] Neutrophils (Bld) [#/Vol] 3.7 10*3/uL Normal 1.8-7.7 [facility] Comment on above: Performed By: #### C BC, CMP wRFX A1C #### [address] Neutrophils/100 WBC (Bld) 72.1 % Normal . [facility] Comment on above: Performed By: #### C BC, CMP wRFX A1C #### [address] NRBC% 0.0 /100{WBC} Normal 0-0.5 [facility] Comment on above: Performed By: #### C BC, CMP wRFX A1C #### [facility] [address] [place] [address] Platelet mean volume (Bld) [Entitic vol] 6.2 fL Low 6.3-10.7 [facility] Comment on above: Performed By: #### C BC, CMP wRFX A1C #### [facility] [address] [place] [address] Platelets (Bld) [#/Vol] 241 10*3/uL Normal 150-450 [facility] Comment on above: Performed By: #### C BC, CMP wRFX A1C #### [facility] [address] [place] [address] [place] RBC (Bld) [#/Vol] 3.96 10*6/uL Normal 3.60-5.00 [facility] Comment on above: Performed By: #### C BC, CMP wRFX A1C #### [facility] [address] WBC (Bld) [#/Vol] 5.1 10*3/uL Normal 3.8-11.6 [facility] Comment on above: Performed By: #### C BC, CMP wRFX A1C #### [facility] [address] [place] [address] [place] Dipstick and Microscopicon 0 08-12-2022 Appearance (U) Clear Normal Clear [facility] Comment on above: Order Comment: Name Collection Type:: Clean-Voided Midstream Performed By: #### A DDONUAPLUS #### [place] [address] [place] Bacteria,Urine None Seen Normal None Seen [facility] Comment on above: Order Comment: Name Collection Type:: Clean-Voided Midstream Performed By: #### A DDONUAPLUS #### [place] [address] [place] Bilirubin,Urine Negative Normal Negative [facility] Comment on above: Order Comment: Name Collection Type:: Clean-Voided Midstream Performed By: #### A DDONUAPLUS #### [facility] [address] [place] [address] [place] Color (U) Yellow Normal Yellow [facility] Comment on above: Order Comment: Name Collection Type:: Clean-Voided Midstream Performed By: #### A DDONUAPLUS #### [facility] [address] [place] [address] [place] Glucose Ql (U) Normal Normal Normal [facility] Comment on above: Order Comment: Name Collection Type:: Clean-Voided Midstream Performed By: #### A DDONUAPLUS #### [facility] [address] [place] [address] [place] Hyaline Casts,Urine None Seen Normal 0-8 [facility] Comment on above: Order Comment: Name Collection Type:: Clean-Voided Midstream Result Comment: PERF ORMED BY: [place] [address] PATHOLOGIST WORKFORCE CONSULTANT YAMILETH PERRY M.D. Performed By: #### A DDONUAPLUS #### [facility] [address] [place] [address] Ketones Ql (U) Negative Normal Negative [facility] Comment on above: Order Comment: Name Collection Type:: Clean-Voided Midstream Performed By: #### A DDONUAPLUS #### [address] Leukocyte esterase Test strip Ql (U) 3+ High Negative [facility] Comment on above: Order Comment: Name Collection Type:: Clean-Voided Midstream Performed By: #### A DDONUAPLUS #### [place] [address] [place] Nitrite,Urine Negative Normal Negative [facility] Comment on above: Order Comment: Name Collection Type:: Clean-Voided Midstream Performed By: #### A DDONUAPLUS #### [place] [address] [place] Occult Blood,Urine Negative Normal Negative [facility] Comment on above: Order Comment: Name Collection Type:: Clean-Voided Midstream Result Comment: PERF ORMED BY: [place] [address] PATHOLOGIST WORKFORCE CONSULTANT YAMILETH PERRY M.D. Performed By: #### A DDONUAPLUS #### [place] [address] [place] pH (U) 7.0 [pH] Normal 5.0-9.0 [facility] Comment on above: Order Comment: Name Collection Type:: Clean-Voided Midstream Performed By: #### A DDONUAPLUS #### [place] [address] [place] Protein,Urine Negative Normal Negative [facility] Comment on above: Order Comment: Name Collection Type:: Clean-Voided Midstream Performed By: #### A DDONUAPLUS #### [address] RBC LM.HPF (Urine sed) [#/Area] 0 /[HPF] Normal 0-4 [facility] Comment on above: Order Comment: Name Collection Type:: Clean-Voided Midstream Performed By: #### A DDONUAPLUS #### [address] Specificy [place],Urine 1.007 Normal 1.001-1.030 [facility] Comment on above: Order Comment: Name Collection Type:: Clean-Voided Midstream Performed By: #### A DDONUAPLUS #### [address] Squamous Epithelial Cell,Urine None Seen Normal 0-2 [facility] Comment on above: Order Comment: Name Collection Type:: Clean-Voided Midstream Performed By: #### A DDONUAPLUS #### [address] Urobilinogen,Urine Normal Normal Normal [facility] Comment on above: Order Comment: Name Collection Type:: Clean-Voided Midstream Performed By: #### A DDONUAPLUS #### [address] WBC,Urine 3-4 Normal 0-4 [facility] Comment on above: Order Comment: Name Collection Type:: Clean-Voided Midstream Performed By: #### A DDONUAPLUS #### [address] MRI KNEE LT WO CONon 07-04- 023 MRI KNEE LT WO CON EXAMINATION: [...] by: GRANT ORTEGA Date: 2022-07-04 12:13 Normal [facility] COVID/FLU/RSV RT-PCRon 04-22 SARS-CoV-2 (COVID-19) RNA CASH+probe Ql (Unsp spec) Negative [employer] Other COVID/FLU/RSV RT-PCR Negative [employer] Other CULTURE URINEon 04-14-2022 CULTURE URINE Isolate [...] F Trimethoprim/Sulfamet hoxazole <=20 S F Normal [facility] Comment on above: Performed By: #### U RCX ####[facility] [id number] [place] [address]Dr. Duong Alcaraz CALCIUMon 04-01-2022 Calcium [Mass/Vol] 9.4 mg/dL Normal 8.5-10.1 [facility] Comment on above: Performed By: #### C A, CREA ####[facility] [id number] [place] [address]Dr. Duong Alcaraz CREATININEon 04-01-2022 Creatinine [Mass/Vol] 0.73 mg/dL Normal 0.55-1.02 [facility] Comment on above: Performed By: #### C A, CREA ####[facility] [id number] [place] [address]Dr. Duong Alcaraz EGFR-AF EMIRATI >60 Normal >=60 [facility] Comment on above: Performed By: #### C A, CREA ####[facility] [id number] [place] [address]Dr. Duong Alcaraz EGFR-NON AF EMIRATI >60 Normal >=60 [facility] Comment on above: Performed By: #### C A, CREA ####[facility] [id number] [place] [address]Dr. Duong Alcaraz PROF CHEM 8 (BAS METB)on Anion gap [Moles/Vol] 12.5 mmol/L Normal [facility] Comment on above: Performed By: #### B MP #### [facility] [address] [address] [address] Duong Alcaraz Calcium [Mass/Vol] 8.8 mg/dL Normal 8.5-10.1 [facility] Comment on above: Performed By: #### B MP #### [facility] [address] [address] [address] Duong Alcaraz Chloride [Moles/Vol] 95 mmol/L Critically low 98-107 [facility] Comment on above: Performed By: #### B MP #### [facility] [address] [place] [address] [address] Duong Alcaraz CO2 [Moles/Vol] 27.3 mmol/L Normal 21.0-32.0 [facility] Comment on above: Performed By: #### B MP #### [facility] [address] [address] [address] Duong Alcaraz Creatinine [Mass/Vol] 0.68 mg/dL Normal 0.55-1.02 [facility] Comment on above: Performed By: #### B MP #### [facility] [address] [address] [address] Duong Alcaraz EGFR-AF EMIRATI >60 Normal >=60 [facility] Comment on above: Performed By: #### B MP #### [facility] [address] [address] [address] Duong Alcaraz EGFR-NON AF EMIRATI >60 Normal >=60 [facility] Comment on above: Performed By: #### B MP #### [facility] [address] [address] [address] Duong Alcaraz Glucose [Mass/Vol] 98 mg/dL Normal 74-106 [facility] Comment on above: Performed By: #### B MP #### [facility] [address] [address] [address] Duong Alcaraz Potassium [Moles/Vol] 3.8 mmol/L Normal 3.5-5.1 [facility] Comment on above: Performed By: #### B MP #### [facility] [address] [address] [address] Duong Alcaraz Sodium [Moles/Vol] 131 mmol/L Critically low 136-145 [facility] Comment on above: Performed By: #### B MP #### [facility] [address] [address] [address] Duong Alcaraz Urea nitrogen [Mass/Vol] 14.0 mg/dL Normal 7.0-18.0 [facility] Comment on above: Performed By: #### B MP #### [facility] [address] [address] [address] Duong Alcaraz Urea nitrogen/Creatinine [Mass ratio] 20.6 mg/mg Normal [facility] Comment on above: Performed By: #### B MP #### [facility] [address] [address] [address] Duong Alcaraz BNPon 11-12-2021 Natriuretic peptide B (Bld) [Mass/Vol] 151.0 pg/mL Normal <=900.0 [facility] Comment on above: Performed By: #### C MP, BNP #### [facility] [address] [address] [address] Duong Alcaraz CBC AUTO DIFFon 11-12-2021 BASO # 0.1 103/ul Normal 0.0-0.1 [facility] Comment on above: Performed By: #### C BC ####[facility] [address] [address]DrClovis Alcaraz Basophils/100 WBC (Bld) 1.3 % Normal 0.2-2.0 [facility] Comment on above: Performed By: #### C BC ####[facility] [address] [address]DrClovis Alcaraz EO # 0.2 103/ul Normal 0.0-0.7 [facility] Comment on above: Performed By: #### C BC ####[facility] [address] [address]Dr. Duong Alcaraz Eosinophils/100 WBC (Bld) 4.4 % Normal 0.9-7.0 [facility] Comment on above: Performed By: #### C BC ####[facility] [address] [address]DrClovis Alcaraz Erythrocyte distribution width (RBC) [Ratio] 12.3 % Normal 11.0-15.0 [facility] Comment on above: Performed By: #### C BC ####[facility] [address] [address]DrClovis Alcaraz Hematocrit (Bld) [Volume fraction] 36.4 % Normal 36.0-48.0 [facility] Comment on above: Performed By: #### C BC ####[facility] [address] [address]Dr. Duong Alcaraz Hemoglobin (Bld) [Mass/Vol] 12.8 g/dL Normal 12.0-16.0 [facility] Comment on above: Performed By: #### C BC ####[facility] [address] [address]Dr. Duong Alcaraz IG # 0.02 10e3/ul Normal 0.00-0.03 [facility] Comment on above: Performed By: #### C BC ####[facility] [address] [address]Dr. Duong Kieran IG % 0.5 % Normal 0.0-0.5 [facility] Comment on above: Performed By: #### C BC ####[facility] [address] [place], [place] [address]Dr. Selenastevo Kieran LYMPH # 0.8 103/ul Critically low 1.2-3.8 [facility] Comment on above: Performed By: #### C BC ####[facility] [address] [place], [place] [address]Dr. Duong Kieran Lymphocytes/100 WBC (Bld) 19.5 % Critically low 20.5-60.0 [facility] Comment on above: Performed By: #### C BC ####[facility] [address] [place], [place] [address]Dr. Selenastevo Alcaraz MANUAL DIFF REQ NO Normal [facility] Comment on above: Performed By: #### C BC ####[facility] [address] [place], [place] [address]Dr. Duong Kieran MCH (RBC) [Entitic mass] 31.7 pg Normal 26.7-34.0 [facility] Comment on above: Performed By: #### C BC ####[facility] [address] [address]Dr. Selenastevo Alcaraz MCHC (RBC) [Mass/Vol] 35.2 g/dL Normal 29.9-35.2 [facility] Comment on above: Performed By: #### C BC ####[facility] [address] [id number]. Duong Alcaraz MCV (RBC) [Entitic vol] 90.1 fL Normal 81.0-99.0 [facility] Comment on above: Performed By: #### C BC ####[facility] [address] [id number]. Duong Alcaraz MONO # 0.5 103/ul Normal 0.3-0.8 [facility] Comment on above: Performed By: #### C BC ####[facility] [address] [address]Dr. Duong Kieran Monocytes/100 WBC (Bld) 12.3 % Critically high 1.7-12.0 [facility] Comment on above: Performed By: #### C BC ####[facility] [address] [place], [place] [address]Dr. Duong Alcaraz NEUT # 2.4 103/ul Normal 1.4-6.5 [facility] Comment on above: Performed By: #### C BC ####[facility] [address] [place], [place] [address]Dr. Duong Kieran Neutrophils/100 WBC (Bld) 62.0 % Normal 43.0-75.0 [facility] Comment on above: Performed By: #### C BC ####[facility] [address] [place], [place] [address]Dr. Duong Kieran Platelet mean volume (Bld) [Entitic vol] 7.8 fL Critically low 9.5-13.5 [facility] Comment on above: Performed By: #### C BC ####[facility] [address] [place], [place] [address]Dr. Duong Kieran PLT 183 103/ul Normal 150-450 [facility] Comment on above: Performed By: #### C BC ####[facility] [address] [id number]. Duong Alcaraz RBC 4.04 106/ul Critically low 4.20-5.40 [facility] Comment on above: Performed By: #### C BC ####[facility] [address] [place], [place] [address]PvDr. Duong Alcaraz WBC 3.9 103/ul Critically low 4.0-11.0 [facility] Comment on above: Performed By: #### C BC ####[facility] [address] [id number]. Duong Alcaraz PROF 14(COMP METB)on 022 Albumin [Mass/Vol] 3.4 g/dL Normal 3.4-5.0 [facility] Comment on above: Performed By: #### C MP, BNP #### [facility] [address] [address] [address] Duong Alcaraz Albumin/Globulin [Mass ratio] 0.9 {ratio} Normal [facility] Comment on above: Performed By: #### C MP, BNP #### [facility] [address] [address] [address] Duong Alcaraz ALP [Catalytic activity/Vol] 33 U/L Critically low 46-116 [facility] Comment on above: Performed By: #### C MP, BNP #### [facility] [address] [address] [address] Duong Alcaraz ALT [Catalytic activity/Vol] 21 U/L Normal 14-59 [facility] Comment on above: Performed By: #### C MP, BNP #### [facility] [address] [address] [address] Duong Alcaraz Anion gap [Moles/Vol] 8.0 mmol/L Normal [facility] Comment on above: Performed By: #### C MP, BNP #### [facility] [address] [address] [address] Duong Alcaraz AST [Catalytic activity/Vol] 26 U/L Normal 15-37 [facility] Comment on above: Performed By: #### C MP, BNP #### [facility] [address] [address] [address] Duong Alcaraz Bilirubin [Mass/Vol] 0.6 mg/dL Normal 0.2-1.0 [facility] Comment on above: Performed By: #### C MP, BNP #### [facility] [address] [place] [address] Dr. Duong Alcaraz Calcium [Mass/Vol] 8.8 mg/dL Normal 8.5-10.1 [facility] Comment on above: Performed By: #### C MP, BNP #### [facility] [address] [place] [address] Dr. Duong Alcaraz Chloride [Moles/Vol] 98 mmol/L Normal 98-107 [facility] Comment on above: Performed By: #### C MP, BNP #### [facility] [address] [place] [address] Dr. Duong Alcaraz CO2 [Moles/Vol] 29.7 mmol/L Normal 21.0-32.0 [facility] Comment on above: Performed By: #### C MP, BNP #### [facility] [address] [place] [address] Dr. Duong Alcaraz Creatinine [Mass/Vol] 0.71 mg/dL Normal 0.55-1.02 [facility] Comment on above: Performed By: #### C MP, BNP #### [facility] [address] [place] [address] Dr. Duong Alcaraz EGFR-AF EMIRATI >60 Normal >=60 [facility] Comment on above: Performed By: #### C MP, BNP #### [facility] [address] [place] [address] Dr. Duong Alcaraz EGFR-NON AF EMIRATI >60 Normal >=60 [facility] Comment on above: Performed By: #### C MP, BNP #### [facility] [address] [place] [address] Dr. Duong Alcaraz Globulin (S) [Mass/Vol] 3.8 g/dL Normal [facility] Comment on above: Performed By: #### C MP, BNP #### [facility] [address] [place] [address] Dr. Duong Alcaraz Glucose [Mass/Vol] 94 mg/dL Normal 74-106 [facility] Comment on above: Performed By: #### C MP, BNP #### [facility] [address] [address] [address] Duong Alcaraz Potassium [Moles/Vol] 3.7 mmol/L Normal 3.5-5.1 [facility] Comment on above: Performed By: #### C MP, BNP #### [facility] [address] [address] [address] Duong Alcaraz Protein [Mass/Vol] 7.2 g/dL Normal 6.4-8.2 [facility] Comment on above: Performed By: #### C MP, BNP #### [facility] [address] [address] [address] Duong Alcaraz Sodium [Moles/Vol] 132 mmol/L Critically low 136-145 [facility] Comment on above: Performed By: #### C MP, BNP #### [facility] [address] [address] [address] Duong Alcaraz Urea nitrogen [Mass/Vol] 14.0 mg/dL Normal 7.0-18.0 [facility] Comment on above: Performed By: #### C MP, BNP #### [facility] [address] [place] [address] Dr. Duong Alcaraz Urea nitrogen/Creatinine [Mass ratio] 19.7 mg/mg Normal [facility] Comment on above: Performed By: #### C MP, BNP #### [facility] [address] [place] [address] Dr. Duong Alcaraz ECHOCARDIO M/2D COMPLETEon 0 11-03-2021 ECHOCARDIO M/2D COMPLETE Patient: GLENIS PEREZ Exam Date: 11/03/2021 : 1950 Gender:F Ordering : PARUL FITZPATRICK Admission #: [id number] Family : DR ANDIE FORDE . Order #: [id number] CLICK HERE TO VIEW EXAM ECHOCARDIOGRAM REPORT [...] Federico Riley M.D. on 11/03/2021 at 21:34 [facility] 10-04-2021 Natriuretic peptide B (Bld) [Mass/Vol] 200.0 pg/mL Normal <=900.0 [facility] Comment on above: Performed By: #### B AIRCRAFT MAINTENANCE MANAGER, TSH, LIPID, CMP, T7 ####[facility] [address] [place], [place] [address]PlDr. Duong Alcaraz CBC AUTO DIFFon 10-04-2021 BASO # 0.1 103/ul Normal 0.0-0.1 [facility] Comment on above: Performed By: #### C BC #### [facility] [address] [address] [address] Duong Alcaraz Basophils/100 WBC (Bld) 1.2 % Normal 0.2-2.0 [facility] Comment on above: Performed By: #### C BC #### [facility] [address] [address] [address] Duong Alcaraz EO # 0.1 103/ul Normal 0.0-0.7 [facility] Comment on above: Performed By: #### C BC #### [facility] [address] [address] [address] Duong Alcaraz Eosinophils/100 WBC (Bld) 2.8 % Normal 0.9-7.0 [facility] Comment on above: Performed By: #### C BC #### [facility] [address] [address] [address] Duong Alcaraz Erythrocyte distribution width (RBC) [Ratio] 12.2 % Normal 11.0-15.0 [facility] Comment on above: Performed By: #### C BC #### [facility] [address] [address] [address] Duong Alcaraz Hematocrit (Bld) [Volume fraction] 37.0 % Normal 36.0-48.0 [facility] Comment on above: Performed By: #### C BC #### [facility] [address] [address] [address] Duong Alcaraz Hemoglobin (Bld) [Mass/Vol] 12.6 g/dL Normal 12.0-16.0 [facility] Comment on above: Performed By: #### C BC #### [facility] [address] [address] [address] Duong Alcaraz IG # 0.03 10e3/ul Normal 0.00-0.03 [facility] Comment on above: Performed By: #### C BC #### [facility] [address] [address] [address] Duong Alcaraz IG % 0.7 % Critically high 0.0-0.5 [facility] Comment on above: Performed By: #### C BC #### [facility] [address] [place] [address] Dr. Duong Alcaraz LYMPH # 0.7 103/ul Critically low 1.2-3.8 [facility] Comment on above: Performed By: #### C BC #### [facility] [address] [place] [address] Dr. Duong Alcaraz Lymphocytes/100 WBC (Bld) 16.0 % Critically low 20.5-60.0 [facility] Comment on above: Performed By: #### C BC #### [facility] [address] [place] [address] Dr. Duong Alcaraz MANUAL DIFF REQ NO Normal [facility] Comment on above: Performed By: #### C BC #### [facility] [address] [place] [address] Dr. Duong Alcaraz MCH (RBC) [Entitic mass] 31.4 pg Normal 26.7-34.0 [facility] Comment on above: Performed By: #### C BC #### [facility] [address] [place] [address] Dr. Duong Alcaraz MCHC (RBC) [Mass/Vol] 34.1 g/dL Normal 29.9-35.2 [facility] Comment on above: Performed By: #### C BC #### [facility] [address] [place] [address] Dr. Duong Alcaraz MCV (RBC) [Entitic vol] 92.3 fL Normal 81.0-99.0 [facility] Comment on above: Performed By: #### C BC #### [facility] [address] [place] [address] Dr. Duong Alcaraz MONO # 0.5 103/ul Normal 0.3-0.8 [facility] Comment on above: Performed By: #### C BC #### [facility] [address] [place] [address] Dr. Duong Alcaraz Monocytes/100 WBC (Bld) 11.5 % Normal 1.7-12.0 [facility] Comment on above: Performed By: #### C BC #### [facility] [address] [place] [address] Dr. Duong Alcaraz NEUT # 2.9 103/ul Normal 1.4-6.5 [facility] Comment on above: Performed By: #### C BC #### [facility] [address] [place] [address] Dr. Duong Alcaraz Neutrophils/100 WBC (Bld) 67.8 % Normal 43.0-75.0 [facility] Comment on above: Performed By: #### C BC #### [facility] [address] [place] [address] Dr. Duong Alcaraz Platelet mean volume (Bld) [Entitic vol] 8.2 fL Critically low 9.5-13.5 [facility] Comment on above: Performed By: #### C BC #### [facility] [address] [place] [address] Dr. Duong Alcaraz PLT 191 103/ul Normal 150-450 [facility] Comment on above: Performed By: #### C BC #### [facility] [address] [place] [address] Dr. Duong Alcaraz RBC 4.01 106/ul Critically low 4.20-5.40 [facility] Comment on above: Performed By: #### C BC #### [facility] [address] [place] [address] Dr. Duong Alcaraz WBC 4.3 103/ul Normal 4.0-11.0 [facility] Comment on above: Performed By: #### C BC #### [facility] [address] [place] [address] Dr. Duong Alcaraz FREE THYROXINE INDEX T7on FTI 3.01 Normal 1.30-4.50 [facility] Comment on above: Performed By: #### B AIRCRAFT MAINTENANCE MANAGER, TSH, LIPID, CMP, T7 ####[facility] [address] [id number]. Duong Alcaraz T3U 35.0 % Normal 30.0-39.0 [facility] Comment on above: Performed By: #### B AIRCRAFT MAINTENANCE MANAGER, TSH, LIPID, CMP, T7 ####[facility] [address] [place], [place] [address]FwClovis Alcaraz T4 [Mass/Vol] 8.60 ug/dL Normal 4.80-13.90 [facility] Comment on above: Performed By: #### B AIRCRAFT MAINTENANCE MANAGER, TSH, LIPID, CMP, T7 ####[facility] [address] [id number] Alcaraz GLYCOHEMOGLOBIN A1Con 2021 ADA RECOMMENDATION SEE BELOW Normal [facility] Comment on above: Result Comment: ADA RECOMMENDED LIMIT 4.0 - 6.0 ADA THERAPEUTIC TARGET < 7.0 ACTION SUGGESTED > 7.0 Performed By: #### A 1C #### [facility] [address] [address] [address] Duong Alcaraz Glucose [Mass/Vol] 108 mg/dL Normal [facility] Comment on above: Performed By: #### A 1C #### [facility] [address] [address] [address] Duong Alcaraz HbA1c (Bld) [Mass fraction] 5.4 % Normal 4.5-6.2 [facility] Comment on above: Performed By: #### A 1C #### [facility] [address] [address] [address] Duong Alcaraz IRONon 10-04-2021 Iron [Mass/Vol] 93.0 ug/dL Normal 50.0-170.0 [facility] Comment on above: Performed By: #### I SHARRON ####[facility] [address] [address]Dr. Duong Alcaraz LIPID PROFILEon 10-04-2021 CHOL-HDL RATIO NORM SEE BELOW Normal [facility] Comment on above: Result Comment: 3.3 - 4.4 LOW RISK 4.4 - 7.1 AVERAGE RISK 7.1 - 11.0 MODERATE RISK >11.0 HIGH RISK Performed By: #### B AIRCRAFT MAINTENANCE MANAGER, TSH, LIPID, CMP, T7 ####[facility] [address] [id number]. Selenastevo Alcaraz Cholesterol [Mass/Vol] 182 mg/dL Normal <=200 [facility] Comment on above: Performed By: #### B AIRCRAFT MAINTENANCE MANAGER, TSH, LIPID, CMP, T7 ####[facility] [address] [id number]. Duong Alcaraz Cholesterol in HDL [Mass/Vol] 69 mg/dL Critically high 40-60 [facility] Comment on above: Performed By: #### B AIRCRAFT MAINTENANCE MANAGER, TSH, LIPID, CMP, T7 ####[facility] [address] [address]Dr. Duong Alcaraz Cholesterol in LDL [Mass/Vol] 107.6 mg/dL Normal [facility] Comment on above: Performed By: #### B AIRCRAFT MAINTENANCE MANAGER, TSH, LIPID, CMP, T7 ####[facility] [address] [id number]. Duong Alcaraz Cholesterol.total/C holesterol in HDL [Mass ratio] 2.6 {ratio} Normal [facility] Comment on above: Performed By: #### B AIRCRAFT MAINTENANCE MANAGER, TSH, LIPID, CMP, T7 ####[facility] [address] [id number]. Duong Alcaraz HDL NORMAL > or = 60 mg/dl - LO W CARDIOVASCULAR RISK <40 mg/dl - HIGH CARDIOVASCULAR RISK Normal [facility] Comment on above: Performed By: #### B AIRCRAFT MAINTENANCE MANAGER, TSH, LIPID, CMP, T7 ####[facility] [address] [id number]. Duong Alcaraz LDL CALC NORMAL SEE BELOW Normal [facility] Comment on above: Result Comment: <100 mg/dl OPTIMAL 100 - 129 mg/dl NEAR OR ABOVE OPTIMAL 130 - 159 mg/dl BORDERLINE HIGH 160 - 189 mg/dl HIGH >190 mg/dl VERY HIGH Performed By: #### B AIRCRAFT MAINTENANCE MANAGER, TSH, LIPID, CMP, T7 ####[facility] [address] [place], [place] [address]VmDr. Duong Alcaraz Triglyceride [Mass/Vol] 27 mg/dL Normal <=150 [facility] Comment on above: Performed By: #### B AIRCRAFT MAINTENANCE MANAGER, TSH, LIPID, CMP, T7 ####[facility] [address] [place], [place] [address]KtDr. Duong Alcaraz VLDL CALC 5.4 mg/dL Normal [facility] Comment on above: Performed By: #### B AIRCRAFT MAINTENANCE MANAGER, TSH, LIPID, CMP, T7 ####[facility] [address] [id number]. Duong Alcaraz PROF 14(COMP METB)on 022 Albumin [Mass/Vol] 3.5 g/dL Normal 3.4-5.0 [facility] Comment on above: Performed By: #### B AIRCRAFT MAINTENANCE MANAGER, TSH, LIPID, CMP, T7 #### [facility] [address] [address] [address] Duong Alcaraz Albumin/Globulin [Mass ratio] 1.0 {ratio} Normal [facility] Comment on above: Performed By: #### B AIRCRAFT MAINTENANCE MANAGER, TSH, LIPID, CMP, T7 #### [facility] [address] [address] [address] Duong Alcaraz ALP [Catalytic activity/Vol] 34 U/L Critically low 46-116 [facility] Comment on above: Performed By: #### B AIRCRAFT MAINTENANCE MANAGER, TSH, LIPID, CMP, T7 #### [facility] [address] [address] [address] Duong Alcaraz ALT [Catalytic activity/Vol] 22 U/L Normal 14-59 [facility] Comment on above: Performed By: #### B AIRCRAFT MAINTENANCE MANAGER, TSH, LIPID, CMP, T7 #### [facility] [address] [address] [address] Duong Alcaraz Anion gap [Moles/Vol] 12.3 mmol/L Normal [facility] Comment on above: Performed By: #### B AIRCRAFT MAINTENANCE MANAGER, TSH, LIPID, CMP, T7 #### [facility] [address] [place] [address] Dr. Duong Alcaraz AST [Catalytic activity/Vol] 19 U/L Normal 15-37 [facility] Comment on above: Performed By: #### B AIRCRAFT MAINTENANCE MANAGER, TSH, LIPID, CMP, T7 #### [facility] [address] [place] [address] Dr. Duong Alcaraz Bilirubin [Mass/Vol] 0.6 mg/dL Normal 0.2-1.0 [facility] Comment on above: Performed By: #### B AIRCRAFT MAINTENANCE MANAGER, TSH, LIPID, CMP, T7 #### [facility] [address] [place] [address] Dr. Duong Alcaraz Calcium [Mass/Vol] 8.5 mg/dL Normal 8.5-10.1 [facility] Comment on above: Performed By: #### B AIRCRAFT MAINTENANCE MANAGER, TSH, LIPID, CMP, T7 #### [facility] [address] [place] [address] Dr. Duong Alcaraz Chloride [Moles/Vol] 101 mmol/L Normal 98-107 [facility] Comment on above: Performed By: #### B AIRCRAFT MAINTENANCE MANAGER, TSH, LIPID, CMP, T7 #### [facility] [address] [place] [address] Dr. Duong Alcaraz CO2 [Moles/Vol] 25.3 mmol/L Normal 21.0-32.0 [facility] Comment on above: Performed By: #### B AIRCRAFT MAINTENANCE MANAGER, TSH, LIPID, CMP, T7 #### [facility] [address] [place] [address] Dr. Duong Alcaraz Creatinine [Mass/Vol] 0.64 mg/dL Normal 0.55-1.02 [facility] Comment on above: Performed By: #### B AIRCRAFT MAINTENANCE MANAGER, TSH, LIPID, CMP, T7 #### [facility] [address] [place] [address] Dr. Duong Alcaraz EGFR-AF EMIRATI >60 Normal >=60 [facility] Comment on above: Performed By: #### B AIRCRAFT MAINTENANCE MANAGER, TSH, LIPID, CMP, T7 #### [facility] [address] [place] [address] Dr. Duong Alcaraz EGFR-NON AF EMIRATI >60 Normal >=60 [facility] Comment on above: Performed By: #### B AIRCRAFT MAINTENANCE MANAGER, TSH, LIPID, CMP, T7 #### [facility] [address] [address] [address] Duong Alcaraz Globulin (S) [Mass/Vol] 3.4 g/dL Normal [facility] [facility] Comment on above: Performed By: #### B AIRCRAFT MAINTENANCE MANAGER, TSH, LIPID, CMP, T7 #### [facility] [address] [address] [address] Duong Alcaraz Glucose [Mass/Vol] 91 mg/dL Normal 74-106 [facility] Comment on above: Performed By: #### B AIRCRAFT MAINTENANCE MANAGER, TSH, LIPID, CMP, T7 #### [facility] [address] [place] [address] Dr. Duong Alcaraz Potassium [Moles/Vol] 4.6 mmol/L Normal 3.5-5.1 [facility] Comment on above: Performed By: #### B AIRCRAFT MAINTENANCE MANAGER, TSH, LIPID, CMP, T7 #### [facility] [address] [address] [address] Duong Alcaraz Protein [Mass/Vol] 6.9 g/dL Normal 6.4-8.2 [facility] Comment on above: Performed By: #### B AIRCRAFT MAINTENANCE MANAGER, TSH, LIPID, CMP, T7 #### [facility] [address] [place] [address] Dr. Duong Alcaraz Sodium [Moles/Vol] 134 mmol/L Critically low 136-145 [facility] Comment on above: Performed By: #### B AIRCRAFT MAINTENANCE MANAGER, TSH, LIPID, CMP, T7 #### [facility] [address] [address] [address] Duong Alcaraz Urea nitrogen [Mass/Vol] 11.0 mg/dL Normal 7.0-18.0 [facility] Comment on above: Performed By: #### B AIRCRAFT MAINTENANCE MANAGER, TSH, LIPID, CMP, T7 #### [facility] [address] [address] [address] Duong Alcaraz Urea nitrogen/Creatinine [Mass ratio] 17.2 mg/mg Normal [facility] Comment on above: Performed By: #### B AIRCRAFT MAINTENANCE MANAGER, TSH, LIPID, CMP, T7 #### [facility] [address] [place], [place] [address] Dr. Duong Alcaraz TSHon 10-04-2021 TSH 1.568 uIU/mL Normal 0.358-3.740 [facility] Comment on above: Performed By: #### B AIRCRAFT MAINTENANCE MANAGER, TSH, LIPID, CMP, T7 ####[facility] [address] [place], [place] [address]GoDr. Duong Alcaraz TSH RANGE SEE BELOW Normal [facility] Comment on above: Result Comment: <0.3 4 UIU/ml HYPERTHYROID 0.34-5.60 UIU/ml EUTHYROID >5.60 UIU/ml HYPOTHYROID Performed By: #### B AIRCRAFT MAINTENANCE MANAGER, TSH, LIPID, CMP, T7 ####[facility] [address] [place], [place] [address]PzDr. Duong Alcaraz MG MAMM SCREEN 3D ALONSO CADon 09-15-2021 MG MAMM SCREEN 3D ALONSO CAD Patient: GLENIS PEREZ Exam Date: 09/15/2021 : 1950 Gender:F Ordering : DR ANDIE FORDE . Admission #: [id number] Family : Order #: [id number] CLICK HERE TO VIEW EXAM RADIOLOGY REPORT [...] Treatments None Family Cancers None LOCATION: [facility] BREAST COMPOSITION: Heterogeneously dense,which may obscure small [...] Ortega M.D. on 09/15/2021 at 15:08 Normal [facility] XR DEXA BONE DENSITYon 09-15 XR DEXA [...] by: GRANT ORTEGA Date: 2021-09-15 08:58 Normal [facility] Cardiovascular Lab Reporton 11-12-2020 Cardiovascular Lab Report [facility] Patient Name: Chris Glenis [facility] MR #: [id number] Physician: Doe Velez, Department of M.D. Medicine Service Date: 11/11/2020 Division of Birthdate: 1950 Cardiology Room #: [facility] [address] [address] Cardiovascular Laboratory Report CLINICAL PRESENTATION: The patient [...] left radial artery. Using ultrasound guidance, a 6-Ethiopian Terumo Glidesheath slender was placed in the left radial artery. The radial anti-vasospasm cocktail of nitroglycerin 200 mcg and verapamil 2.5 mg was administered through the sheath. All catheter exchanges were made over the Magic Torque guidewire. A 5-Ethiopian JR4 used to engage the right coronary artery. A 5-Ethiopian JL4 used to engage the left main [...] P/Doe Velez M.D. Date Trans: 11/12/2020 05:34 A/viri [id number] cc: Siddharth Nolasco MD Dept Of Cardiology [address] [facility] [address] Andie Forde M.D. [address] [address] Parul Fitzpatrick CNP [address] [facility] [address] [facility] [address] Normal [facility] Formson 08-26-2020 Forms [id number] .[id number]:127 Normal [facility] Physician Referralon 021 Physician Referral [id number] .[id number]:127 Normal [facility] Ambulatory Clinical Summaryo n 08-25-2020 Ambulatory Clinical Summary {[id number]}CD:[id number] Gaviota Griffin [facility] Patient Educationon 08-26-19 Patient Education Urinary Tract [...] Document Reviewed: 05/18/2012 ExitCare? Patient Information ?2013 Private.Me. [facility] Urology Office/Clinic Noteon 08-25-2020 Urology Office/Clinic Note Chief Complaint New patient cystocele This 69-year-old female is being scheduled for cystocele repair by her automatic machine attendant. Requested stent placement to aid in dissection [...] Urnls Dip Stick Auto w/o Microscopy POC 06474 Urology Procedure Order 2. UTI (urinary tract infection) (N39.0: Urinary tract infection, site not specified) UA today appears to be infected with positive nitrate. Will start pt. on Cipro 500mg bid, #6. Script sent to [facility] in [employer] [employer]. Ordered: Urology Procedure Order 3. Microscopic hematuria (R31.29: Other microscopic hematuria) UA today - trace intact. Ordered: Urology Procedure Order Orders: ciprofloxacin, 500 mg = 1 tab(s), Oral, q12hr, X 3 day(s), # 6 tab(s), Refills(s) 0, Pharmacy: [facility] 1155, 160, cm, 08/25/20 11:31:00 EDT, Height/Length Dosing, 75.6, kg, 08/25/20 11:31:00 EDT, Weight Dosing I have reviewed the previous health record information and history for this pt. from Dr. Gonzalez. Follow-up With When Contact Information Carlos Alvarado MD, Dallin Malik, URO [address] [id number]- Additional Instructions: Patient Education Urinary Tract Infection INegra (more content not included)... Normal [facility] Comment on above: Result Comment: Elec tronically Signed By: Dallin Gonzalez Jr., MD\.br\Date and Time Signed: 08/25/20 13:08 EDT\.br\Electronically Co-Signed By: Negra Mccullough MA\.br\Date and Time Co-Signed: 08/25/20 11:50 EDT Vital Signs Date Time Vital Sign Value Performing Clinician Facility 02-27-2023 10:15-0500 Body height 161.29 cm Tomás Wills Other [facility] Other 11-28-2022 11:00-0400 Body height 161.29 cm Tomás Wills Other [facility] Other 11-28-2022 11:00-0400 Body mass index (BMI) [Ratio] 27.55 kg/m2 Tomás Wills Other [facility] Other 11-28-2022 11:00-0400 Body weight 71.67 kg Tomás Wills Other [facility] Other 09-28-2022 13:15-0400 Body height 161.29 cm Tomás Wills Other [facility] Other 09-28-2022 13:15-0400 Body mass index (BMI) [Ratio] 27.9 kg/m2 Tomás Wills Other [facility] Other 09-28-2022 13:15-0400 Body weight 72.58 kg Tomás Wills Other [facility] Other 04-22-2022 16:30-0500 Body height 161.29 cm Linda Hall Other [facility] Other 04-22-2022 16:30-0500 Body mass index (BMI) [Ratio] 27.02 kg/m2 Linda Hall Other [facility] Other 04-22-2022 16:30-0500 Body temperature 96.4 [degF] Linda Hall Other [facility] Other 04-22-2022 16:30-0500 Body weight 70.31 kg Linda Hall Other [facility] Other 04-22-2022 16:30-0500 Respiratory rate 18 /min Linda Hall Other [facility] Other 04-22-2022 16:30-0500 SaO2% (BldA) [Mass fraction] 98 % Linda Hall Other [facility] Other Encounters Encounter Date Encounter Type Care Provider Facility Start: 01-08-2024 End: 01-08-2024 ambulatory [facility] Start: 11-22-2023 End: 11-22-2023 ambulatory FRANK E RINKES Not Available Start: 07-13-2023 End: 07-13-2023 ambulatory FRANK E RINKES Not Available Start: 04-04-2023 End: 04-04-2023 ambulatory FRANK E RINKES Not Available Start: 02-27-2023 Office outpatient vi sit 15 minutes Tomás Wills [facility] Start: 02-27-2023 End: 02-27-2023 ambulatory Tomás Wills [facility] Other Start: 01-18-2023 End: 01-18-2023 ambulatory Tomás Wills Other [facility] Other Start: 01-18-2023 Telephone encounter Tomás CHRISTENSEN [facility] Start: 12-28-2022 End: 12-28-2022 ambulatory Tomás Wills Other [facility] Other Start: 12-28-2022 Telephone encounter Tomás CHRISTENSEN [facility] Start: 11-28-2022 End: 11-28-2022 ambulatory Tomás Wills Other [facility] Other Start: 11-28-2022 Postop follow up vis it related to original px Tomás Wills [facility] Start: 09-28-2022 End: 09-28-2022 ambulatory Tomás Wills Other [facility] Other Start: 09-28-2022 Postop follow up vis it related to original px Tomás Wills [facility] Start: 09-23-2022 End: 09-23-2022 ambulatory Tomás Wills Other [facility] Other Start: 09-23-2022 Telephone encounter Tomás Wills [facility] Start: 09-13-2022 End: 09-13-2022 ambulatory Andie Forde Facility:[facility] Start: 08-24-2022 End: 08-24-2022 ambulatory Tomás Wills Facility:[facility] Start: 08-19-2022 End: 08-20-[address] ANDIE FORDE . Facility:[facility] Start: 08-12-2022 End: 08-12-2022 ambulatory Tomás Wills Facility:[facility] Start: 07-04-2022 End: 07-05-[address] ANDIE FORDE . Facility:[facility] Start: 06-22-2022 End: 06-23-[address] ANDIE FORDE . Facility:[facility] Start: 04-22-2022 End: 04-22-2022 ambulatory Linda Hall Other [facility] Other Start: 04-22-2022 Office outpatient ne w [...] Start: 11-11-2020 End: 11-12-2020 ambulatory DOE VELEZ Facility:[facility] Payers Date Payer Category Payer Self-pay 1961 Medicare [id number] 1961 Unknown [id number] 1950 Unknown [id number] 2.16.8 [id number] 1950 Unknown [id number] 2.16.84 0.1.536366.3.579.2.593 1950 Unknown [id number] 2.16.84 0.1.061778.3.579.2.593 1950 Unknown [id number] 2.16.84 0.1.466594.3.579.2.593 1950 Unknown [id number] 2.16.84 0.1.675728.3.579.2.593 1950 Unknown [id number] 2.16.84 0.1.321662.3.579.2.593 1950 Unknown [id number] 2.16.84 0.1.359325.3.579.2.593 1950 Unknown [id number] 2.16.84 0.1.151079.3.579.2.593 1950 Unknown [id number] 2.16.84 0.1.503100.3.579.2.593 1950 Unknown [id number] 2.16.84 0.1.111416.3.579.2.593 1950 Unknown [id number] 2.16.84 0.1.485170.3.579.2.593 1950 Unknown [id number] 2.16.84 0.1.486007.3.579.2.593 1950 Unknown [id number] 2.16.84 0.1.841535.3.579.2.593 1950 Unknown [id number] 2.16.84 0.1.767212.3.579.2.1259 1950 Unknown [id number] 2.16.84 0.1.319931.3.579.2.1259 1950 Unknown [id number] 2.16.840 .1.722598.3.579.2.1259 Unknown [id number] 2.1 6.840.1.896024.19 Unknown [id number] 2.16.8 40.1.845747.3.579.2.531 Unknown [id number] 2.16.8 40.1.568366.3.579.2.531 Unknown [id number] 2.16.8 40.1.292470.3.579.2.531 Unknown [id number] 2.16.8 40.1.269458.3.579.2.531 Social History Date Type Detail Facility Sex Assigned At [facility] Other Clinical Notes 04-22-2022 to 01-08-2024 Note Date & Type Note Facility 01-08-2024 Note Continue carvedilol currently remains stable. [facility] 01-08-2024 Note Currently no concern ing symptoms and patient denies any palpitations. Continue carvedilol 12.5 mg twice daily. [facility] 01-08-2024 Note Hypertension is well -controlled currently. Continue carvedilol and hydrochlorothiazide Renal function and electrolytes are normal She does admit to occasional lightheadedness with low blood pressure denies any syncope or near syncope. Admits that typical days she does not hydrate well enough and likes to drink ice tea therefore we discussed adequate hydration. [facility] 01-08-2024 Note [facility] CARDIOLOGY PROGR ESS NOTE HPI: Glenis Perez is a 73 y.o. female here for routine F/U HPI 73 yo female presents for routine F/U for known NSVT, PVCs, HTN, varicose veins/phlebitis, osteoarthritis Currently patient states she is doing very well, denies any activity limiting symptoms. States since her knee surgery she is walking most days as exercise and spends a lot of time outdoors gardening and yard work. Admits occasional lightheadedness and feels like her blood pressure is low, denies any near-syncope or syncope She admits typically she does not hydrate well throughout the day and her main intake is ice tea. Pt denies chest pain, palpatation, sob. Review of Systems Constitutional: Negative for chills, decreased appetite, fever and weight gain. Cardiovascular: Positive for leg swelling (swelling in left ankle). Negative for chest pain, dyspnea on exertion, irregular heartbeat, near-syncope, orthopnea, palpitations, paroxysmal nocturnal dyspnea and syncope. All other systems reviewed and are negativ Visit Vitals BP 101/68 (BP Location: Right arm, Patient Position: Sitting) Pulse 57 Ht 1.6 m (5' 3 ) Wt 73.5 kg (162 lb) SpO2 96% BMI 28.70 kg/m??? Smoking Status Never BSA 1.81 m??? Allergies Allergen Reactions Penicillins Tetracycline Medications: Current Outpatient Medications on File Prior to Visit Medication Sig Dispense Refill aspirin 325 mg tablet Take 1 tablet every day by oral route. carvedilol (Coreg) 12.5 mg tablet TAKE 1 TABLET (12.5 MG) BY MOUTH WITH BREAKFAST AND WITH EVENING MEAL. 60 tablet 11 cetirizine (ZyrTEC) 10 mg tablet Take 10 mg by mouth in the morning. cholecalciferol, vitamin D3, 50 mcg (2,000 unit) capsule Take 1 capsule by mouth in the morning and at bedtime. denosumab (Prolia) 60 mg/mL syringe Inject 60 mg under the skin 1 (one) time. EVERY 6 MONTHS hydroCHLOROthiazide (Microzide) 12.5 mg capsule TAKE 1 CAPSULE (12.5 MG) BY MOUTH IN THE MORNING. 30 capsule 11 melatonin tablet Take 1 mg by mouth at bedtime. omeprazole (PriLOSEC) [address] capsule Take 1 capsule by mouth in the morning. No current facility-administered medications on file prior to visit. Physical Exam: Constitutional: Appearance: Normal appearance. Without apparent distress HENT: Head: Normocephalic and atraumatic. Nose: Nose normal. Mouth/Throat: Mouth: Mucous membranes are moist. Eyes: Extraocular Movements: Extraocular movements intact. Conjunctiva/sclera: Conjunctivae normal. Neck: Vascular: No JVD. Cardiovascular: Rate and Rhythm: Normal rate and regular rhythm. Pulses: Dorsalis pedis pulses are 3 on the right side and 3on the left side. Posterior tibial pulses are 3 on the right side and 3 on the left side. Heart sounds: Normal heart sounds, S1 normal and S2 normal. Pulmonary: Effort: Pulmonary effort is normal. Breath sounds: Normal breath sounds. Abdominal: General: Bowel sounds are normal. Palpations: Abdomen is soft. Musculoskeletal: General: Normal range of motion. Cervical back: Normal range of motion. Right lower leg: No edema. Left lower leg: No edema. Skin: General: Skin is warm and dry. Capillary Refill: Capillary refill takes less than 2 seconds. Neurological: General: No focal deficit present. Mental Status: She is alert and oriented to person, place, and time. Psychiatric: Mood and Affect: Mood normal. Behavior: Behavior normal. Thought Content: Thought content normal. Judgment: Judgment normal. 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 -ECHO (11/03/21) 1. Normal ventricular systolic function, LVEF at 65% 2. Mild TR 3. Severe LA dilation. The interatrial septum bows to the right, suggestive of elevated left atrial pressure 4. Normal right sided pressures -EKG (11/11/20): sinus fidencio, HR 54, nonspecific ST changes -ECHO 10/15/20: EF 55-60%, biatrial enlargement, RV normal in size and function, mild to mod TR -1-week Holter 09/30/2020: primarily SR-SB, frequent PVCs, 3 occurences of VT (longest 5 beats), PVC burden 9% long runs of ventricular bigeminy +symptomatic during bigeminy Assessment/Plan: Essential hypertension Hypertension is well-controlled currently. Continue carvedilol and hydrochlorothiazide Renal function and electrolytes are normal She does admit to occasional lightheadedness with low blood pressure denies any syncope or near syncope. Admits that typical days she does not hydrate well enough and likes t (more content not included)... [facility] 01-08-2024 Note Pt here for a one ye ar follow up. Pt denies chest pain, palpatation, sob. Review of Systems Constitutional: Negative for chills, decreased appetite, fever and weight gain. Cardiovascular: Positive for leg swelling (swelling in left ankle). Negative for chest pain, dyspnea on exertion, irregular heartbeat, near-syncope, orthopnea, palpitations, paroxysmal nocturnal dyspnea and syncope. All other systems reviewed and are negative. [facility] 02-27-2023 Evaluation note Encounter Date Diagnosis Assessment [...] from surgery. 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 Activity as tolerated. Call with questions/anuradha rns. Provided AAOS hand out on hip conditioning and IT band exercises. [facility] Other 09-06-2023 Evaluation note* Encounter Date Diagnosis Assessment Notes Treatment Notes Treatment Clinical Notes Dec, History of total left knee replacement (ICD-10 - Z96.652) [facility] Other 08-07-2023 Evaluation note* Encounter Date Diagnosis [...] total left knee replacement (ICD-10 - Z96.652) [facility] Other 06-07-2023 Evaluation note* Encounter Date Diagnosis [...] meniscus of left knee (ICD-10 - M23.307) [facility] Other 06-02-2023 Evaluation note* Encounter Date Diagnosis Assessment Notes Treatment Notes Treatment Clinical Notes Sep, Primary osteoarthritis of left knee (ICD-10 - M17.12) [facility] Other 03-01-2023 NotePROCEDURE: XR KNEE LT 4V or > COMPARISON: 04/09/2021 HISTORY: Pain of left knee joint FINDINGS: BONES:No acute fracture or dislocation. 7 mm osteochondral injury medial femoral condyle. Tricompartmental osteoarthropathy most significant in the medial compartment SOFT TISSUES:Negative. No visible soft tissue swelling. EFFUSION:None visible. OTHER: Negative. IMPRESSION: Osteochondral injury medial femoral condyle Electronically authenticated by: LISET MEZA Date: 2022-06-22 17:[address] [place], [place] [address]12-30-2022 Evaluation note* Encounter Date Diagnosis Assessment Notes [...] treatment plan Mar, Headache (ICD-10 - R51.9) [facility] Other History general Narrative - Reported* Type Description Date Medical History hx of hypertension Surgical History tubiligation Surgical History [place] [facility] Extraction Hospitalization History vaginal child x 3 [facility] Other History general Narrative - Reported* Type Description Date Medical History hx of hypertension Medical History PVC Medical History osteoarthritis of the left knee Surgical History tubiligation Surgical History [place] Tooth Extraction Hospitalization History vaginal child x 3 [facility] Other History general Narrative - Reported* Type Description Date Medical History hx of hypertension Medical History PVC Medical History osteoarthritis of the left knee Surgical History tubiligation Surgical History [place] Tooth Extraction Surgical History left total knee arthroplasty Hospitalization History vaginal child x 3 [employer] [facility] Other Summary Purpose Family History No Family [...] section and content) DATE CREATED AUTHOR [facility]24/2020 [facility] DATE CREATED AUTHOR AUTHOR'S ORGANIZ ATION 11/18/2020 [facility] DATE CREATED AUTHOR AUTHOR'S ORGANIZ ATION 08/26/2022 [facility] DATE CREATED AUTHOR AUTHOR'S ORGANIZ ATION 05/13/2023 [facility] DATE CREATED AUTHOR AUTHOR'S ORGANIZ ATION 11/25/2023 [facility] DATE CREATED AUTHOR AUTHOR'S ORGANIZ ATION 01/09/2024 [facility] REASON FOR VISIT (unrecogniz ed section and [...] BE BASED ON THE PRIMARY CLINICAL RECORDS. [employer] provides no warranty or guarantee of the accuracy or completeness of information in this document.
--- NOTE | 2024-01-11 11:22 | XR_ITS ---
The [address] [address] Patient Name: LOYD ARELLANO MRN: [id number] date: 1950 Sex: F Assigned Patient Location: [facility] Current Patient Location: Accession/Order Number: [id number] Exam Date: 01/11/2024 11:15 Report Date: 01/12/2024 08:17 At the request of: ANDIE MARIANO Procedure: XR DEXA axial skeleton EXAMINATION: XR DEXA axial skeleton, 01/11/2024 11:15 AM EDT HISTORY: osteopenia M85.80 COMPARISON: 2017 TECHNIQUE: Dual-energy X-ray absorptiometry (DEXA) bone density study performed for the axial skeleton. FINDINGS: Bone mineral density of the lumbar spine L1-L4 measures 1.141 g/sq cm. T score -0.5. Normal Lowest bone mineral density right femoral trochanter measures 0.639 g/sq cm. T score -1.8. Osteopenia XR/XR DEXA axial skeleton IMPRESSION: Osteopenia. Moderate fracture risk Pharmacologic treatment recommendations * No uniform recommendation applies to all patients. Management plans must be individualized. * Consider initiating pharmacologic treatment in postmenopausal women and men >= 50 years of age who have the following: Primary fracture prevention: * T-score <= - 2.5 at the femoral neck, total hip, lumbar spine, 33% radius (some uncertainty with existing data) by DXA. * Low bone mass (osteopenia: T-score between - 1.0 and - 2.5) at the femoral neck or total hip by DXA with a 10-year hip fracture risk >= 3% or a 10-year major osteoporosis-related fracture risk >= 20% (i.e., clinical vertebral, hip, forearm, or proximal humerus) based on the US-adapted FRAXregistered model. Secondary fracture prevention: * Fracture of the hip or vertebra regardless of BMD [4, 5]. * Fracture of proximal humerus, pelvis, or distal forearm in persons with low bone mass (osteopenia: T-score between - 1.0 and - 2.5). The decision to treat should be individualized in persons with a fracture of the proximal humerus, pelvis, or distal forearm who do not have osteopenia or low BMD [12, 13]. Crow NOEL, Vinicio SL, Lena KL, Jarad EM, Vinod KG, Nicholson AJ, Abel ES. The clinician's guide to prevention and treatment of osteoporosis. Osteoporos Int. 2021;33(10):2616-4368. doi: 10.1007/m72267-600-96161-b. Epub 2021Aug 19. Erratum in: Osteoporos Int. 2021Nov 18;: PMID: [id number]; PMCID: [id number]. Electronically authenticated by: LISET MEZA Date: 01/12/2024 08:17
== END 2024-01-11 10:54 | disposition home or self-care (01) ==
LOC: MAMMO 10:53
PROVIDERS: PCP Family Medicine; Visit Provider Family Medicine
DX: Z09 Encounter for follow-up examination after completed treatment for conditions other than malignant neoplasm (principal); Z12.31 Encounter for screening mammogram for malignant neoplasm of breast; M85.80 Other specified disorders of bone density and structure, unspecified site
CPT/HCPCS: 77063; 77067; 77080

== ENCOUNTER 2024-01-16 10:54 | Outpatient (OUT) | payer MEDICARE, OTHER, SELFPAY ==
[2024-01-16 11:07] LABS: Bilirubin Urine NEGATIVE (NEGATIVE); Blood Urine TRACE-I (NEGATIVE); Clarity Urine CLEAR (CLEAR); Color Urine LT. YELLOW (YELLOW); Glucose Urine UA NEGATIVE (NEGATIVE); Ketones Urine NEGATIVE (NEGATIVE); Leukocyte Esterase Urine MODERATE (NEGATIVE); Nitrite Urine NEGATIVE (NEGATIVE); Protein Urine NEGATIVE (NEG/TRACE); Urobilinogen Urine 0.2 EU/dL (0.2-1.0)
[2024-01-16 11:14] LABS: Bacteria Urine TRACE #/HPF (NONE SEEN); Cast Seen? NONE SEEN #/LPF (NONE SEEN); Crystals Seen? None Seen #/HPF (None Seen); Mucus Urine NONE SEEN (NONE SEEN); Squamous Epithelial Cell Urine RARE #/LPF (NONE/RARE)
== END 2024-01-16 10:55 | disposition home or self-care (01) ==
LOC: LAB 10:54
PROVIDERS: PCP Family Medicine; Visit Provider Family Medicine
DX: N39.0 Urinary tract infection, site not specified (principal)
CPT/HCPCS: 81001; 87086

== ENCOUNTER 2024-02-01 07:39 | Outpatient (RCR) | payer MEDICARE, OTHER, SELFPAY ==
[2024-01-26 09:56] LABS: Estimated GFR (African America >60 (>=60 mL/min/1.73m^2); Estimated GFR (Non-African Ame >60 (>=60 mL/min/1.73m^2)
[2024-01-26] MEDS: ERTAPENEM SODIUM 1 GM in 0.9 % SODIUM CHLORIDE 50 ML IV (10:16)
--- NOTE | 2024-01-26 10:52 | PC.NURSE ---
1053 infusion completed, tolerated well. IV left in, wrapped loosely with coban for protection, patient educated on care at home, verbalizes understanding. released ambulatory
[2024-01-27 10:00] VITALS: BP 121/75; PULSE 56; TEMP 36.7; O2SAT 95
[2024-01-27] MEDS: ERTAPENEM SODIUM 1 GM in 0.9 % SODIUM CHLORIDE 50 ML IV (10:16)
[2024-01-28 10:09] VITALS: BP 168/91; PULSE 64; TEMP 36.6; O2SAT 98
[2024-01-28] MEDS: ERTAPENEM SODIUM 1 GM in 0.9 % SODIUM CHLORIDE 50 ML IV (10:12)
[2024-01-28 10:45] VITALS: BP 142/80; PULSE 58
[2024-01-29] MEDS: ERTAPENEM SODIUM 1 GM in 0.9 % SODIUM CHLORIDE 50 ML IV (10:04)
--- NOTE | 2024-01-29 11:08 | PC.NURSE ---
0958: Pt. to [facility] amb. for daily antibiotic. Seated in recliner. Pt with existing #[address] to left inner forearm. Slight bruising to site. No edema or redness observed. Flushes easily, denies pain to site. VSS. 1004: IV Invanz initiated at this time. Pt. denies needs. 1037: IV Invanz completed without s&s of adverse reaction. Pt. relays tenderness to iv site. Slight edema noted under skin with palpation. IV d/c'd pressure to site. Pt. d/c'd amb. to home.
[2024-01-30 12:06] VITALS: BP 178/86; PULSE 64; TEMP 36.6; O2SAT 95
[2024-01-30] MEDS: ERTAPENEM SODIUM 1 GM in 0.9 % SODIUM CHLORIDE 50 ML IV (12:16)
--- NOTE | 2024-01-30 12:50 | PC.NURSE ---
1243: IV antibiotic completed without s&s of adverse reaction. IV to SLF, wrapped in coban dressing. Pt. d/c'd amb. to home.
[2024-01-31 10:00] VITALS: BP 139/81; PULSE 62; TEMP 37; O2SAT 98
[2024-01-31 10:05] VITALS: BP 98/65; PULSE 56; TEMP 36.3; O2SAT 96
[2024-01-31] MEDS: ERTAPENEM SODIUM 1 GM in 0.9 % SODIUM CHLORIDE 50 ML IV (10:26)
--- NOTE | 2024-01-31 11:28 | PC.NURSE ---
1056 TOlerated infusion without any s/s of reaction. saline lock site clean, no reddness or edema. flushed with ns, covered with coban loosely to protect site, released ambulatory
[2024-02-01] MEDS: ERTAPENEM SODIUM 1 GM in 0.9 % SODIUM CHLORIDE 50 ML IV (09:55)
[2024-02-01 10:02] VITALS: BP 156/89; PULSE 65; TEMP 36.8; O2SAT 97
--- NOTE | 2024-02-01 10:45 | PC.NURSE ---
1025: IV antibiotic completed at this time without adverse reaction. IV d/c'd, pressure to site. Pt. d/c'd amb. to home.
== END 2024-02-22 23:59 | disposition home or self-care (01) ==
LOC: INF 07:39
PROVIDERS: PCP Family Medicine; Visit Provider Family Medicine
DX: N39.0 Urinary tract infection, site not specified (principal)
CPT/HCPCS: 36415; 82565; 96365; J1335

== ENCOUNTER 2024-02-05 12:50 | Outpatient (OUT) | payer MEDICARE, OTHER, SELFPAY ==
--- OUTSIDE RECORDS SUMMARY | 2024-02-05 13:07 | XMS_ITS | CCD ---
Author Organization [facility] Care Team Providers Care Hog Ringer Name Role Phone DOE VELEZ Attending Unavailable [...] Unavailable HOY ., DR CHAVES Consulting Unavailable BASTIAN, DR LISET Cuadra Consulting Unavailable HOY ., [...] (antibiotic) (1 source) Penicillin Drug Allergy 1 [facility] Repository Tetracyclines (antibiotic) (1 source) Tetracyclines Drug Allergy 1 [facility] Repository (7 sources) Penicillin Drug Allergy Unknown [employer] Other (8 sources) Tetracycline; Translations: [TETRACYCLINE] Drug Allergy 2 [facility] Repository (2 sources) Penicillins; Translations: [PENICILLINS] Drug allergy (disorder) 4 [facility] Repository (1 source) Tetracycline Drug Allergy 4 [facility] Repository (1 source) Penicillins Drug allergy (disorder) 3 [facility] Repository (1 source) Tetracycline Drug Allergy 3 [facility] Repository Medications Current Medications Medication Drug Class(es) [...] Not-Taking Start: 09-09-2022 take 1 capsule by [facility] every twelve hours Clindamycin HCl [...] Range Facility Office Visiton 01-08-2024 Follow-up visit [id number] Glenis Perez 1950 F Date Provider Department Center 01/08/2024 [facility]-TATIANNA ARANA Family History Problem Relation Age of Onset Heart attack Mother Coronary artery disease Mother Other Brother Family Status - Relation Status Age at Mother Brother Level of Service:78318 [place] OFFICE/OUTPATIENT ESTABLISHED SF MDM 10 MIN Normal [facility] XR knee LT 2Von 02-27-2023 XR knee LT 2V [facility] [address] [place] [address] XRay Report Signed Patient: Glenis Perez MR#: [id number] 42 : 1950 Acct:[id number] Age/Sex: 72 / F ADM Date: 02/27/23 Loc: [place] Room: Type: [facility] CLI Attending Dr: Tomás Wills DO [...] Raúl Woo M.D.02/27/2023 3:08 PM Dictation Location: [place] [address] Transcribed By: [facility] 02/27/23 1508 Dictated By: Raúl Woo DO 02/27/23 1508 Signed By: 02/27/23 1508 Normal [facility] XR knee LT 2V [facility] [employer] Other XR knee LT 2V [facility] [employer] Other XR knee LT 2V [address] [facility] [employer] Other XR knee LT 2[place] [address] [facility] [employer] Other XR knee LT 2V XRay Report [employer] Other XR knee LT 2V Signed [facility] [employer] Other XR knee LT 2V Patient: Glenis Perez MR#: [id number] [facility] [employer] Other XR knee LT 2V 42 [facility] [employer] Other XR knee LT 2V : 1950 Acct:[id number] [employer] Other XR knee LT 2V Age/Sex: 72 / F ADM Date: 02/27/23 [employer] Other XR knee LT 2V Loc: [place] Room: Type : [facility] [employer] Other XR knee LT 2V Attending Dr: Tomás Wills DO [employer] Other XR knee LT 2V Copies to: Tomás Wills DO [employer] Other XR knee LT 2V Ordering Provider: Tomás Wills DO [employer] Other XR knee LT 2V Date of Service: 02/27/23 [employer] Other XR knee LT 2V XR/XR knee LT 2V: Status post total left knee replacement [employer] Other XR knee LT 2V 2 views LEFT knee plain film [employer] Other XR knee LT 2V COMPARISON: 09/13/22 N [employer] Other XR knee LT 2V HISTORY: Status post LEFT total knee arthroplasty [employer] Other XR knee LT 2V ACUTE FINDINGS: None N [employer] Other XR knee LT 2V DEGENERATIVE CHANGE: Unremarkable [employer] Other XR knee LT 2V SOFT TISSUE FINDINGS : Unremarkable [employer] Other XR knee LT 2V JOINT EFFUSION: None N [employer] Other XR knee LT 2V POSTOP CHANGES: Stable hardware [employer] Other XR knee LT 2V BONE MINERALIZATION: Adequate [employer] Other XR knee LT 2V XR/XR knee LT 2V [employer] Other XR knee LT 2V IMPRESSION: Uncomplicated LEFT knee arthroplasty [employer] Other XR knee LT 2V Impression dictated by: Raúl Woo M.D.02/27/2023 3:08 PM [employer] Other XR knee LT 2V Dictation Location: [place] [address] [employer] Other XR knee LT 2V Transcribed By: PWS 02/27/23 [facility] [employer] Other XR knee LT 2V Dictated By: Raúl Woo DO 02/27/23 [facility] [employer] Other XR knee LT 2V Signed By: [employer] Other XR knee LT 2V 02/27/23 [facility] [employer] Other [place] 09-13-2022 L - -------- Specimen: [id number] Received: 09/13/22 Status: LUZ Lynn Num: [id number] Spec Type: Surgical Subm Dr: Tomás Wills DO Tissues: A Joint/Knee (LT KNEE) Procedures: Gross/Micro L4, Decalcification -------- Age/ Patient Sex Location Account Attending Physician -------- Glenis Perez Ann 71/F [place] [id number] Tomás Wills DO -------- SPEC NUM: [id number] RECD: 09/13/22 STATUS: LUZ LYNN NUM: [id number] SETH: 09/13/22- [facility] DR: Tomás Wills DO ENTERED: 09/13/22 [facility] DR: ANDREW TYPE: Surgical DEPT: S ORDERED: [...] is taken. Gross examination only. CPT Codes 79722 Gross Photo -------- -------- Specimen: [id number] Received: 09/13/22 Status: LUZ Rogelzaina Num: [id number] Spec Type: Surgical Subm Dr: Tomás Wills DO Tissues: A Joint/Knee (LT KNEE) Procedures: Gross/Micro L4, Decalcification -------- Patient: Glenis Perez Ann [id number] (Continued) -------- Signed (signature on file) Kendra Guzman MD 09/14/22 1033 Normal [facility] XR knee LT 2Von 09-13-2022 XR knee LT 2V [address] [address] XRay Report Signed Patient: Glenis Perez MR#: [id number] 40 : 1950 Acct:[id number] Age/Sex: 71 / F ADM Date: 09/13/22 Loc: [place] Room: Type: [facility] Attending Dr: Tomás Wills DO [...] Sameer Guy M.D.09/13/2022 3:01 PM Dictation Location: [place] [address] Transcribed By: [facility] 09/13/22 1501 Dictated By: Sameer Guy II, MD 09/13/22 1500 Signed By: 09/13/22 1501 Normal [facility] PROF CHEM 8 (BAS METB)on Anion gap [Moles/Vol] 10.3 mmol/L Normal [facility] Comment on above: Performed By: #### B MP #### [facility] [address] [place] [address] [address] Duong Alcaraz Calcium [Mass/Vol] 9.3 mg/dL Normal 8.5-10.1 [facility] Comment on above: Performed By: #### B MP #### [facility] [address] [place] [address] [address] Duong Alcaraz Chloride [Moles/Vol] 95 mmol/L Critically low 98-107 [facility] Comment on above: Performed By: #### B MP #### [facility] [address] [place] [address] [address] Duong Alcaraz CO2 [Moles/Vol] 30.6 mmol/L Normal 21.0-32.0 [facility] Comment on above: Performed By: #### B MP #### [facility] [address] [place] [address] [address] Duong Alcaraz Creatinine [Mass/Vol] 0.69 mg/dL Normal 0.55-1.02 [facility] Comment on above: Performed By: #### B MP #### [facility] [address] [place] [address] [address] Duong Alcaraz EGFR-AF TRINIDADIAN >60 Normal >=60 [facility] Comment on above: Performed By: #### B MP #### [facility] [address] [place] [address] [address] Duong Alcaraz EGFR-NON AF TRINIDADIAN >60 Normal >=60 [facility] Comment on above: Performed By: #### B MP #### [facility] [address] [place] [address] [address] Duong Alcaraz Glucose [Mass/Vol] 83 mg/dL Normal 74-106 [facility] Comment on above: Performed By: #### B MP #### [facility] [address] [place] [address] [address] Duong Alcaraz Potassium [Moles/Vol] 3.9 mmol/L Normal 3.5-5.1 [facility] Comment on above: Performed By: #### B MP #### [facility] [address] [place] [address] [address] Duong Alcaraz Sodium [Moles/Vol] 132 mmol/L Critically low 136-145 [facility] Comment on above: Performed By: #### B MP #### [facility] [address] [place] [address] [address] Duong Alcaraz Urea nitrogen [Mass/Vol] 12.0 mg/dL Normal 7.0-18.0 [facility] Comment on above: Performed By: #### B MP #### [facility] [address] [place] [address] Dr. Duong Alcaraz Urea nitrogen/Creatinine [Mass ratio] 17.4 mg/mg Normal [facility] Comment on above: Performed By: #### B MP #### [facility] [address] [place] [address] [address] Duong Alcaraz CMP with reflex to A1Con Albumin [Mass/Vol] 3.9 g/dL Normal 3.5-5.7 [facility] Comment on above: Performed By: #### C BC, CMP wRFX A1C #### [address] Albumin/Globulin [Mass ratio] 1.5 {ratio} Normal [facility] Comment on above: Performed By: #### C BC, CMP wRFX A1C #### [address] ALP [Catalytic activity/Vol] 34 U/L Normal 34-104 [facility] Comment on above: Result Comment: PERF ORMED BY: [place] [address] PATHOLOGIST TRADING ANALYST YAMILETH PERRY M.D. Performed By: #### C BC, CMP wRFX A1C #### [address] ALT [Catalytic activity/Vol] 14 U/L Normal 7-52 [facility] Comment on above: Performed By: #### C BC, CMP wRFX A1C #### [address] Anion gap [Moles/Vol] 11.1 mmol/L Normal 6.0-15.0 [facility] Comment on above: Performed By: #### C BC, CMP wRFX A1C #### [address] AST [Catalytic activity/Vol] 18 U/L Normal 13-39 [facility] Comment on above: Performed By: #### C BC, CMP wRFX A1C #### [place] [address] [place] Bilirubin [Mass/Vol] 0.6 mg/dL Normal 0.3-1.0 [facility] Comment on above: Performed By: #### C BC, CMP wRFX A1C #### [place] [address] [place] Calcium [Mass/Vol] 8.4 mg/dL Low 8.6-10.3 [facility] Comment on above: Performed By: #### C BC, CMP wRFX A1C #### [facility] [address] [place] [address] Chloride [Moles/Vol] 94 mmol/L Low 98-107 [facility] Comment on above: Performed By: #### C BC, CMP wRFX A1C #### [facility] [address] [place] [address] CO2 [Moles/Vol] 28.0 mmol/L Normal 21.0-31.0 [facility] Comment on above: Performed By: #### C BC, CMP wRFX A1C #### [address] Creatinine [Mass/Vol] 0.68 mg/dL Normal 0.60-1.20 [facility] Comment on above: Performed By: #### C BC, CMP wRFX A1C #### [place] [address] [place] GFR/1.73 sq M.predicted MDRD (S/P/Bld) [Vol rate/Area] mL/min/{1.73_m2} [facility] Comment on above: Performed By: #### C BC, CMP wRFX A1C #### [address] Globulin (S) [Mass/Vol] 2.6 g/dL Normal [facility] Comment on above: Performed By: #### C BC, CMP wRFX A1C #### [place] [address] [place] Glucose [Mass/Vol] 88 mg/dL Normal 70-100 [facility] Comment on above: Performed By: #### C BC, CMP wRFX A1C #### [facility] [address] [place] [address] Potassium [Moles/Vol] 4.1 mmol/L Normal 3.5-5.1 [facility] Comment on above: Performed By: #### C BC, CMP wRFX A1C #### [facility] [address] Protein [Mass/Vol] 6.5 g/dL Normal 6.4-8.9 [facility] Comment on above: Performed By: #### C BC, CMP wRFX A1C #### [facility] [address] Sodium [Moles/Vol] 129 mmol/L Low 136-145 [facility] Comment on above: Performed By: #### C BC, CMP wRFX A1C #### [facility] [address] Urea nitrogen [Mass/Vol] 19 mg/dL Normal 7-25 [facility] Comment on above: Performed By: #### C BC, CMP wRFX A1C #### [facility] [address] Complete Blood Count Auto Di ffon 08-12-2022 Basophils (Bld) [#/Vol] 0.1 10*3/uL Normal 0.0-0.2 [facility] Comment on above: Result Comment: PERF ORMED BY: [place] [address] PATHOLOGIST TRADING ANALYST YAMILETH PERRY M.D. Performed By: #### C BC, CMP wRFX A1C #### [place] [address] [place] Basophils/100 WBC (Bld) 1.3 % Normal . [facility] Comment on above: Performed By: #### C BC, CMP wRFX A1C #### [facility] [address] [place] [address] [place] Eosinophils (Bld) [#/Vol] 0.1 10*3/uL Normal 0.0-0.45 [facility] Comment on above: Performed By: #### C BC, CMP wRFX A1C #### [facility] [address] [place] [address] [place] Eosinophils/100 WBC (Bld) 1.6 % Normal . [facility] Comment on above: Performed By: #### C BC, CMP wRFX A1C #### [facility] [address] Erythrocyte distribution width (RBC) [Ratio] 13.6 % Normal 11.9-15.3 [facility] Comment on above: Performed By: #### C BC, CMP wRFX A1C #### [address] Hematocrit (Bld) [Volume fraction] 35.9 % Normal 34.0-46.4 [facility] Comment on above: Performed By: #### C BC, CMP wRFX A1C #### [address] Hemoglobin (Bld) [Mass/Vol] 12.6 g/dL Normal 11.8-15.4 [facility] Comment on above: Performed By: #### C BC, CMP wRFX A1C #### [address] Lymphocytes (Bld) [#/Vol] 0.7 10*3/uL Low 1.00-4.8 [facility] Comment on above: Performed By: #### C BC, CMP wRFX A1C #### [address] Lymphocytes/100 WBC (Bld) 14.6 % Normal . [facility] Comment on above: Performed By: #### C BC, CMP wRFX A1C #### [address] MCH (RBC) [Entitic mass] 31.8 pg Normal 24.7-34.3 [facility] Comment on above: Performed By: #### C BC, CMP wRFX A1C #### [address] MCV (RBC) [Entitic vol] 90.7 fL Normal 80-100 [facility] Comment on above: Performed By: #### C BC, CMP wRFX A1C #### [address] Mean Corpuscular HGB Conc 35.0 g/dL Normal 32.0-35.0 [facility] Comment on above: Performed By: #### C BC, CMP wRFX A1C #### [facility] [address] [place] [address] Monocytes (Bld) [#/Vol] 0.5 10*3/uL Normal 0.0-0.8 [facility] Comment on above: Performed By: #### C BC, CMP wRFX A1C #### [facility] [address] [place] [address] Monocytes/100 WBC (Bld) 10.4 % Normal . [facility] Comment on above: Performed By: #### C BC, CMP wRFX A1C #### [facility] [address] [place] [address] Neutrophils (Bld) [#/Vol] 3.7 10*3/uL Normal 1.8-7.7 [facility] Comment on above: Performed By: #### C BC, CMP wRFX A1C #### [address] Neutrophils/100 WBC (Bld) 72.1 % Normal . [facility] Comment on above: Performed By: #### C BC, CMP wRFX A1C #### [address] NRBC% 0.0 /100{WBC} Normal 0-0.5 [facility] Comment on above: Performed By: #### C BC, CMP wRFX A1C #### [facility] [address] [place] [address] Platelet mean volume (Bld) [Entitic vol] 6.2 fL Low 6.3-10.7 [facility] Comment on above: Performed By: #### C BC, CMP wRFX A1C #### [facility] [address] [place] [address] Platelets (Bld) [#/Vol] 241 10*3/uL Normal 150-450 [facility] Comment on above: Performed By: #### C BC, CMP wRFX A1C #### [facility] [address] [place] [address] [place] RBC (Bld) [#/Vol] 3.96 10*6/uL Normal 3.60-5.00 [facility] Comment on above: Performed By: #### C BC, CMP wRFX A1C #### [facility] [address] WBC (Bld) [#/Vol] 5.1 10*3/uL Normal 3.8-11.6 [facility] Comment on above: Performed By: #### C BC, CMP wRFX A1C #### [facility] [address] [place] [address] [place] Dipstick and Microscopicon 0 08-12-2022 Appearance (U) Clear Normal Clear [facility] Comment on above: Order Comment: Name Collection Type:: Clean-Voided Midstream Performed By: #### A DDONUAPLUS #### [place] [address] [place] Bacteria,Urine None Seen Normal None Seen [facility] Comment on above: Order Comment: Name Collection Type:: Clean-Voided Midstream Performed By: #### A DDONUAPLUS #### [place] [address] [place] Bilirubin,Urine Negative Normal Negative [facility] Comment on above: Order Comment: Name Collection Type:: Clean-Voided Midstream Performed By: #### A DDONUAPLUS #### [facility] [address] [place] [address] [place] Color (U) Yellow Normal Yellow [facility] Comment on above: Order Comment: Name Collection Type:: Clean-Voided Midstream Performed By: #### A DDONUAPLUS #### [facility] [address] [place] [address] [place] Glucose Ql (U) Normal Normal Normal [facility] Comment on above: Order Comment: Name Collection Type:: Clean-Voided Midstream Performed By: #### A DDONUAPLUS #### [facility] [address] [place] [address] [place] Hyaline Casts,Urine None Seen Normal 0-8 [facility] Comment on above: Order Comment: Name Collection Type:: Clean-Voided Midstream Result Comment: PERF ORMED BY: [place] [address] PATHOLOGIST TRADING ANALYST YAMILETH PERRY M.D. Performed By: #### A DDONUAPLUS #### [facility] [address] [place] [address] Ketones Ql (U) Negative Normal Negative [facility] Comment on above: Order Comment: Name Collection Type:: Clean-Voided Midstream Performed By: #### A DDONUAPLUS #### [address] Leukocyte esterase Test strip Ql (U) 3+ High Negative [facility] Comment on above: Order Comment: Name Collection Type:: Clean-Voided Midstream Performed By: #### A DDONUAPLUS #### [place] [address] [place] Nitrite,Urine Negative Normal Negative [facility] Comment on above: Order Comment: Name Collection Type:: Clean-Voided Midstream Performed By: #### A DDONUAPLUS #### [place] [address] [place] Occult Blood,Urine Negative Normal Negative [facility] Comment on above: Order Comment: Name Collection Type:: Clean-Voided Midstream Result Comment: PERF ORMED BY: [place] [address] PATHOLOGIST TRADING ANALYST YAMILETH PERRY M.D. Performed By: #### A DDONUAPLUS #### [place] [address] [place] pH (U) 7.0 [pH] Normal 5.0-9.0 [facility] Comment on above: Order Comment: Name Collection Type:: Clean-Voided Midstream Performed By: #### A DDONUAPLUS #### [place] [address] [place] Protein,Urine Negative Normal Negative [facility] Comment on above: Order Comment: Name Collection Type:: Clean-Voided Midstream Performed By: #### A DDONUAPLUS #### [address] RBC LM.HPF (Urine sed) [#/Area] 0 /[HPF] Normal 0-4 [facility] Comment on above: Order Comment: Name Collection Type:: Clean-Voided Midstream Performed By: #### A DDONUAPLUS #### [address] Specificy [place],Urine 1.007 Normal 1.001-1.030 [facility] Comment on above: Order Comment: Name Collection Type:: Clean-Voided Midstream Performed By: #### A DDONUAPLUS #### [address] Squamous Epithelial Cell,Urine None Seen Normal 0-2 [facility] Comment on above: Order Comment: Name Collection Type:: Clean-Voided Midstream Performed By: #### A DDONUAPLUS #### [address] Urobilinogen,Urine Normal Normal Normal [facility] Comment on above: Order Comment: Name Collection Type:: Clean-Voided Midstream Performed By: #### A DDONUAPLUS #### [address] WBC,Urine 3-4 Normal 0-4 [facility] Comment on above: Order Comment: Name Collection Type:: Clean-Voided Midstream Performed By: #### A DDONUAPLUS #### [address] MRI KNEE LT WO CONon 07-04- [...] by: GRANT ORTEGA Date: 2022-07-04 12:13 Normal [facility] COVID/FLU/RSV RT-PCRon 04-22 SARS-CoV-2 (COVID-19) RNA CASH+probe Ql (Unsp spec) Negative [employer] Other COVID/FLU/RSV RT-PCR Negative [employer] Other CULTURE URINEon 04-14-2022 CULTURE URINE Isolate [...] F Trimethoprim/Sulfamet hoxazole <=20 S F Normal [facility] Comment on above: Performed By: #### U RCX ####[facility] [id number] [place] [address]Dr. Duong Alcaraz CALCIUMon 04-01-2022 Calcium [Mass/Vol] 9.4 mg/dL Normal 8.5-10.1 [facility] Comment on above: Performed By: #### C A, CREA ####[facility] [address] [place] [address]Dr. Duong Alcaraz CREATININEon 04-01-2022 Creatinine [Mass/Vol] 0.73 mg/dL Normal 0.55-1.02 [facility] Comment on above: Performed By: #### C A, CREA ####[facility] [address] [place] [address]Dr. Duong Alcaraz EGFR-AF TRINIDADIAN >60 Normal >=60 [facility] Comment on above: Performed By: #### C A, CREA ####[facility] [address] [place] [address]Dr. Duong Alcaraz EGFR-NON AF TRINIDADIAN >60 Normal >=60 [facility] Comment on above: Performed By: #### C A, CREA ####[facility] [address] [place] [address]Dr. Duong Alcaraz PROF CHEM 8 (BAS METB)on Anion gap [Moles/Vol] 12.5 mmol/L Normal [facility] Comment on above: Performed By: #### B MP #### [facility] [address] [address] [address] Duong Alcaraz Calcium [Mass/Vol] 8.8 mg/dL Normal 8.5-10.1 [facility] Comment on above: Performed By: #### B MP #### [facility] [address] [address] [address] Duong Alcaraz Chloride [Moles/Vol] 95 mmol/L Critically low 98-107 [facility] Comment on above: Performed By: #### B MP #### [facility] [address] [place] [address] [address] Duong Alcaraz CO2 [Moles/Vol] 27.3 mmol/L Normal 21.0-32.0 [facility] Comment on above: Performed By: #### B MP #### [facility] [address] [address] [address] Duong Alcaraz Creatinine [Mass/Vol] 0.68 mg/dL Normal 0.55-1.02 [facility] Comment on above: Performed By: #### B MP #### [facility] [address] [address] [address] Duong Alcaraz EGFR-AF TRINIDADIAN >60 Normal >=60 [facility] Comment on above: Performed By: #### B MP #### [facility] [address] [place] [address] [address] Duong Alcaraz EGFR-NON AF TRINIDADIAN >60 Normal >=60 [facility] Comment on above: Performed By: #### B MP #### [facility] [address] [address] [address] Duong Alcaraz Glucose [Mass/Vol] 98 mg/dL Normal 74-106 [facility] Comment on above: Performed By: #### B MP #### [facility] [address] [place] [address] [address] Duong Alcaraz Potassium [Moles/Vol] 3.8 mmol/L Normal 3.5-5.1 [facility] Comment on above: Performed By: #### B MP #### [facility] [address] [place] [address] [address] Duong Alcaraz Sodium [Moles/Vol] 131 mmol/L Critically low 136-145 [facility] Comment on above: Performed By: #### B MP #### [facility] [address] [address] [address] Duong Alcaraz Urea nitrogen [Mass/Vol] 14.0 mg/dL Normal 7.0-18.0 [facility] Comment on above: Performed By: #### B MP #### [facility] [address] [address] [address] Duong Alcaraz Urea nitrogen/Creatinine [Mass ratio] 20.6 mg/mg Normal [facility] Comment on above: Performed By: #### B MP #### [facility] [address] [address] [address] Duong Alcaraz BNPon 11-12-2021 Natriuretic peptide B (Bld) [Mass/Vol] 151.0 pg/mL Normal <=900.0 [facility] Comment on above: Performed By: #### C MP, BNP #### [facility] [address] [address] [address] Duong Alcaraz CBC AUTO DIFFon 11-12-2021 BASO # 0.1 103/ul Normal 0.0-0.1 [facility] Comment on above: Performed By: #### C BC ####[facility] [address] [address]DrClovis Alcaraz Basophils/100 WBC (Bld) 1.3 % Normal 0.2-2.0 [facility] Comment on above: Performed By: #### C BC ####[facility] [address] [address]DrClovis Alcaraz EO # 0.2 103/ul Normal 0.0-0.7 [facility] Comment on above: Performed By: #### C BC ####[facility] [address] [address]Dr. Duong Alcaraz Eosinophils/100 WBC (Bld) 4.4 % Normal 0.9-7.0 [facility] Comment on above: Performed By: #### C BC ####[facility] [address] [address]DrClovis Alcaraz Erythrocyte distribution width (RBC) [Ratio] 12.3 % Normal 11.0-15.0 [facility] Comment on above: Performed By: #### C BC ####[facility] [address] [address]DrClovis Alcaraz Hematocrit (Bld) [Volume fraction] 36.4 % Normal 36.0-48.0 [facility] Comment on above: Performed By: #### C BC ####[facility] [address] [address]Dr. Duong Alcaraz Hemoglobin (Bld) [Mass/Vol] 12.8 g/dL Normal 12.0-16.0 [facility] Comment on above: Performed By: #### C BC ####[facility] [address] [address]Dr. Duong Alcaraz IG # 0.02 10e3/ul Normal 0.00-0.03 [facility] Comment on above: Performed By: #### C BC ####[facility] [address] [address]Dr. Duong Kieran IG % 0.5 % Normal 0.0-0.5 [facility] Comment on above: Performed By: #### C BC ####[facility] [address] [place], [place] [address]Dr. Selenastevo Kieran LYMPH # 0.8 103/ul Critically low 1.2-3.8 [facility] Comment on above: Performed By: #### C BC ####[facility] [address] [place], [place] [address]Dr. Duong Kieran Lymphocytes/100 WBC (Bld) 19.5 % Critically low 20.5-60.0 [facility] Comment on above: Performed By: #### C BC ####[facility] [address] [place], [place] [address]Dr. Selenastevo Alcaraz MANUAL DIFF REQ NO Normal [facility] Comment on above: Performed By: #### C BC ####[facility] [address] [place], [place] [address]Dr. Duong Kieran MCH (RBC) [Entitic mass] 31.7 pg Normal 26.7-34.0 [facility] Comment on above: Performed By: #### C BC ####[facility] [address] [address]Dr. Selenastevo Alcaraz MCHC (RBC) [Mass/Vol] 35.2 g/dL Normal 29.9-35.2 [facility] Comment on above: Performed By: #### C BC ####[facility] [address] [id number]. Duong Alcaraz MCV (RBC) [Entitic vol] 90.1 fL Normal 81.0-99.0 [facility] Comment on above: Performed By: #### C BC ####[facility] [address] [id number]. Duong Alcaraz MONO # 0.5 103/ul Normal 0.3-0.8 [facility] Comment on above: Performed By: #### C BC ####[facility] [address] [address]Dr. Duong Kieran Monocytes/100 WBC (Bld) 12.3 % Critically high 1.7-12.0 [facility] Comment on above: Performed By: #### C BC ####[facility] [address] [place], [place] [address]Dr. Duong Alcaraz NEUT # 2.4 103/ul Normal 1.4-6.5 [facility] Comment on above: Performed By: #### C BC ####[facility] [address] [place], [place] [address]Dr. Duong Kieran Neutrophils/100 WBC (Bld) 62.0 % Normal 43.0-75.0 [facility] Comment on above: Performed By: #### C BC ####[facility] [address] [place], [place] [address]Dr. Duong Kieran Platelet mean volume (Bld) [Entitic vol] 7.8 fL Critically low 9.5-13.5 [facility] Comment on above: Performed By: #### C BC ####[facility] [address] [place], [place] [address]Dr. Duong Kieran PLT 183 103/ul Normal 150-450 [facility] Comment on above: Performed By: #### C BC ####[facility] [address] [id number]. Duong Alcaraz RBC 4.04 106/ul Critically low 4.20-5.40 [facility] Comment on above: Performed By: #### C BC ####[facility] [address] [place], [place] [address]HxDr. Duong Alcaraz WBC 3.9 103/ul Critically low 4.0-11.0 [facility] Comment on above: Performed By: #### C BC ####[facility] [address] [id number]. Duong Alcaraz PROF 14(COMP METB)on 022 Albumin [Mass/Vol] 3.4 g/dL Normal 3.4-5.0 [facility] Comment on above: Performed By: #### C MP, BNP #### [facility] [address] [address] [address] Duong Alcaraz Albumin/Globulin [Mass ratio] 0.9 {ratio} Normal [facility] Comment on above: Performed By: #### C MP, BNP #### [facility] [address] [address] [address] Duong Alcaraz ALP [Catalytic activity/Vol] 33 U/L Critically low 46-116 [facility] Comment on above: Performed By: #### C MP, BNP #### [facility] [address] [address] [address] Duong Alcaraz ALT [Catalytic activity/Vol] 21 U/L Normal 14-59 [facility] Comment on above: Performed By: #### C MP, BNP #### [facility] [address] [address] [address] Duong Alcaraz Anion gap [Moles/Vol] 8.0 mmol/L Normal [facility] Comment on above: Performed By: #### C MP, BNP #### [facility] [address] [address] [address] Duong Alcaraz AST [Catalytic activity/Vol] 26 U/L Normal 15-37 [facility] Comment on above: Performed By: #### C MP, BNP #### [facility] [address] [address] [address] Duong Alcaraz Bilirubin [Mass/Vol] 0.6 mg/dL Normal 0.2-1.0 [facility] Comment on above: Performed By: #### C MP, BNP #### [facility] [address] [place] [address] Dr. Duong Alcaraz Calcium [Mass/Vol] 8.8 mg/dL Normal 8.5-10.1 [facility] Comment on above: Performed By: #### C MP, BNP #### [facility] [address] [place] [address] Dr. Duong Alcaraz Chloride [Moles/Vol] 98 mmol/L Normal 98-107 [facility] Comment on above: Performed By: #### C MP, BNP #### [facility] [address] [place] [address] Dr. Duong Alcaraz CO2 [Moles/Vol] 29.7 mmol/L Normal 21.0-32.0 [facility] Comment on above: Performed By: #### C MP, BNP #### [facility] [address] [place] [address] Dr. Duong Alcaraz Creatinine [Mass/Vol] 0.71 mg/dL Normal 0.55-1.02 [facility] Comment on above: Performed By: #### C MP, BNP #### [facility] [address] [place] [address] Dr. Duong Alcaraz EGFR-AF TRINIDADIAN >60 Normal >=60 [facility] Comment on above: Performed By: #### C MP, BNP #### [facility] [address] [place] [address] Dr. Duong Alcaraz EGFR-NON AF TRINIDADIAN >60 Normal >=60 [facility] Comment on above: Performed By: #### C MP, BNP #### [facility] [address] [place] [address] Dr. Duong Alcaraz Globulin (S) [Mass/Vol] 3.8 g/dL Normal [facility] Comment on above: Performed By: #### C MP, BNP #### [facility] [address] [place] [address] Dr. Duong Alcaraz Glucose [Mass/Vol] 94 mg/dL Normal 74-106 [facility] Comment on above: Performed By: #### C MP, BNP #### [facility] [address] [address] [address] Duong Alcaraz Potassium [Moles/Vol] 3.7 mmol/L Normal 3.5-5.1 [facility] Comment on above: Performed By: #### C MP, BNP #### [facility] [address] [address] [address] Duong Alcaraz Protein [Mass/Vol] 7.2 g/dL Normal 6.4-8.2 [facility] Comment on above: Performed By: #### C MP, BNP #### [facility] [address] [address] [address] Duong Alcaraz Sodium [Moles/Vol] 132 mmol/L Critically low 136-145 [facility] Comment on above: Performed By: #### C MP, BNP #### [facility] [address] [address] [address] Duong Alcaraz Urea nitrogen [Mass/Vol] 14.0 mg/dL Normal 7.0-18.0 [facility] Comment on above: Performed By: #### C MP, BNP #### [facility] [address] [place] [address] Dr. Duong Alcaraz Urea nitrogen/Creatinine [Mass ratio] 19.7 mg/mg Normal [facility] Comment on above: Performed By: #### C MP, BNP #### [facility] [address] [place] [address] Dr. Duong Alcaraz ECHOCARDIO M/2D COMPLETEon 0 11-03-2021 ECHOCARDIO M/2D COMPLETE Patient: GLENIS PEREZ Exam Date: 11/03/2021 : 1950 Gender:F Ordering : PARUL FITZPATRICK Admission #: [id number] Family : DR ANDIE FORDE . Order #: [id number] CLICK HERE TO VIEW EXAM ECHOCARDIOGRAM REPORT [...] Federico Riley M.D. on 11/03/2021 at 21:34 [facility] 10-04-2021 Natriuretic peptide B (Bld) [Mass/Vol] 200.0 pg/mL Normal <=900.0 [facility] Comment on above: Performed By: #### B ENERGY OPERATIONS VICE PRESIDENT, TSH, LIPID, CMP, T7 ####[facility] [address] [place], [place] [address]SsDr. Duong Alcaraz CBC AUTO DIFFon 10-04-2021 BASO # 0.1 103/ul Normal 0.0-0.1 [facility] Comment on above: Performed By: #### C BC #### [facility] [address] [address] [address] Duong Alcaraz Basophils/100 WBC (Bld) 1.2 % Normal 0.2-2.0 [facility] Comment on above: Performed By: #### C BC #### [facility] [address] [address] [address] Duong Alcaraz EO # 0.1 103/ul Normal 0.0-0.7 [facility] Comment on above: Performed By: #### C BC #### [facility] [address] [address] [address] Duong Alcaraz Eosinophils/100 WBC (Bld) 2.8 % Normal 0.9-7.0 [facility] Comment on above: Performed By: #### C BC #### [facility] [address] [address] [address] Duong Alcaraz Erythrocyte distribution width (RBC) [Ratio] 12.2 % Normal 11.0-15.0 [facility] Comment on above: Performed By: #### C BC #### [facility] [address] [address] [address] Duogn Alcaraz Hematocrit (Bld) [Volume fraction] 37.0 % Normal 36.0-48.0 [facility] Comment on above: Performed By: #### C BC #### [facility] [address] [address] [address] Duong Alcaraz Hemoglobin (Bld) [Mass/Vol] 12.6 g/dL Normal 12.0-16.0 [facility] Comment on above: Performed By: #### C BC #### [facility] [address] [address] [address] Duong Alcaraz IG # 0.03 10e3/ul Normal 0.00-0.03 [facility] Comment on above: Performed By: #### C BC #### [facility] [address] [address] [address] Duong Alcaraz IG % 0.7 % Critically high 0.0-0.5 [facility] Comment on above: Performed By: #### C BC #### [facility] [address] [place] [address] Dr. Duong Alcaraz LYMPH # 0.7 103/ul Critically low 1.2-3.8 [facility] Comment on above: Performed By: #### C BC #### [facility] [address] [place] [address] Dr. Duong Alcaraz Lymphocytes/100 WBC (Bld) 16.0 % Critically low 20.5-60.0 [facility] Comment on above: Performed By: #### C BC #### [facility] [address] [place] [address] Dr. Duong Alcaraz MANUAL DIFF REQ NO Normal [facility] Comment on above: Performed By: #### C BC #### [facility] [address] [place] [address] Dr. Duong Alcaraz MCH (RBC) [Entitic mass] 31.4 pg Normal 26.7-34.0 [facility] Comment on above: Performed By: #### C BC #### [facility] [address] [place] [address] Dr. Duong Alcaraz MCHC (RBC) [Mass/Vol] 34.1 g/dL Normal 29.9-35.2 [facility] Comment on above: Performed By: #### C BC #### [facility] [address] [place] [address] Dr. Duong Alcaraz MCV (RBC) [Entitic vol] 92.3 fL Normal 81.0-99.0 [facility] Comment on above: Performed By: #### C BC #### [facility] [address] [place] [address] Dr. Duong Alcaraz MONO # 0.5 103/ul Normal 0.3-0.8 [facility] Comment on above: Performed By: #### C BC #### [facility] [address] [place] [address] Dr. Duong Alcaraz Monocytes/100 WBC (Bld) 11.5 % Normal 1.7-12.0 [facility] Comment on above: Performed By: #### C BC #### [facility] [address] [place] [address] Dr. Duong Alcaraz NEUT # 2.9 103/ul Normal 1.4-6.5 [facility] Comment on above: Performed By: #### C BC #### [facility] [address] [place] [address] Dr. Duong Alcaraz Neutrophils/100 WBC (Bld) 67.8 % Normal 43.0-75.0 [facility] Comment on above: Performed By: #### C BC #### [facility] [address] [place] [address] Dr. Duong Alcaraz Platelet mean volume (Bld) [Entitic vol] 8.2 fL Critically low 9.5-13.5 [facility] Comment on above: Performed By: #### C BC #### [facility] [address] [place] [address] Dr. Duong Alcaraz PLT 191 103/ul Normal 150-450 [facility] Comment on above: Performed By: #### C BC #### [facility] [address] [place] [address] Dr. Duong Alcaraz RBC 4.01 106/ul Critically low 4.20-5.40 [facility] Comment on above: Performed By: #### C BC #### [facility] [address] [place] [address] Dr. Duong Alcaraz WBC 4.3 103/ul Normal 4.0-11.0 [facility] Comment on above: Performed By: #### C BC #### [facility] [address] [place] [address] Dr. Duong Alcaraz FREE THYROXINE INDEX T7on FTI 3.01 Normal 1.30-4.50 [facility] Comment on above: Performed By: #### B ENERGY OPERATIONS VICE PRESIDENT, TSH, LIPID, CMP, T7 ####[facility] [address] [id number]. Duong Alcaraz T3U 35.0 % Normal 30.0-39.0 [facility] Comment on above: Performed By: #### B ENERGY OPERATIONS VICE PRESIDENT, TSH, LIPID, CMP, T7 ####[facility] [address] [place], [place] [address]YgClovis Alcaraz T4 [Mass/Vol] 8.60 ug/dL Normal 4.80-13.90 [facility] Comment on above: Performed By: #### B ENERGY OPERATIONS VICE PRESIDENT, TSH, LIPID, CMP, T7 ####[facility] [address] [id number] Alcaraz GLYCOHEMOGLOBIN A1Con 2021 ADA RECOMMENDATION SEE BELOW Normal [facility] Comment on above: Result Comment: ADA RECOMMENDED LIMIT 4.0 - 6.0 ADA THERAPEUTIC TARGET < 7.0 ACTION SUGGESTED > 7.0 Performed By: #### A 1C #### [facility] [address] [address] [address] Duong Alcaraz Glucose [Mass/Vol] 108 mg/dL Normal [facility] Comment on above: Performed By: #### A 1C #### [facility] [address] [address] [address] Duong Alcaraz HbA1c (Bld) [Mass fraction] 5.4 % Normal 4.5-6.2 [facility] Comment on above: Performed By: #### A 1C #### [facility] [address] [address] [address] Duong Alcaraz IRONon 10-04-2021 Iron [Mass/Vol] 93.0 ug/dL Normal 50.0-170.0 [facility] Comment on above: Performed By: #### I SHARRON ####[facility] [address] [address]Dr. Duong Alcaraz LIPID PROFILEon 10-04-2021 CHOL-HDL RATIO NORM SEE BELOW Normal [facility] Comment on above: Result Comment: 3.3 - 4.4 LOW RISK 4.4 - 7.1 AVERAGE RISK 7.1 - 11.0 MODERATE RISK >11.0 HIGH RISK Performed By: #### B ENERGY OPERATIONS VICE PRESIDENT, TSH, LIPID, CMP, T7 ####[facility] [address] [id number]. Selenastevo Alcaraz Cholesterol [Mass/Vol] 182 mg/dL Normal <=200 [facility] Comment on above: Performed By: #### B ENERGY OPERATIONS VICE PRESIDENT, TSH, LIPID, CMP, T7 ####[facility] [address] [id number]. Duong Alcaraz Cholesterol in HDL [Mass/Vol] 69 mg/dL Critically high 40-60 [facility] Comment on above: Performed By: #### B ENERGY OPERATIONS VICE PRESIDENT, TSH, LIPID, CMP, T7 ####[facility] [address] [address]Dr. Duong Alcaraz Cholesterol in LDL [Mass/Vol] 107.6 mg/dL Normal [facility] Comment on above: Performed By: #### B ENERGY OPERATIONS VICE PRESIDENT, TSH, LIPID, CMP, T7 ####[facility] [address] [id number]. Duong Alcaraz Cholesterol.total/C holesterol in HDL [Mass ratio] 2.6 {ratio} Normal [facility] Comment on above: Performed By: #### B ENERGY OPERATIONS VICE PRESIDENT, TSH, LIPID, CMP, T7 ####[facility] [address] [id number]. Duong Alcaraz HDL NORMAL > or = 60 mg/dl - LO W CARDIOVASCULAR RISK <40 mg/dl - HIGH CARDIOVASCULAR RISK Normal [facility] Comment on above: Performed By: #### B ENERGY OPERATIONS VICE PRESIDENT, TSH, LIPID, CMP, T7 ####[facility] [address] [id number]. Duong Alcaraz LDL CALC NORMAL SEE BELOW Normal [facility] Comment on above: Result Comment: <100 mg/dl OPTIMAL 100 - 129 mg/dl NEAR OR ABOVE OPTIMAL 130 - 159 mg/dl BORDERLINE HIGH 160 - 189 mg/dl HIGH >190 mg/dl VERY HIGH Performed By: #### B ENERGY OPERATIONS VICE PRESIDENT, TSH, LIPID, CMP, T7 ####[facility] [address] [place], [place] [address]YwDr. Duong Alcaraz Triglyceride [Mass/Vol] 27 mg/dL Normal <=150 [facility] Comment on above: Performed By: #### B ENERGY OPERATIONS VICE PRESIDENT, TSH, LIPID, CMP, T7 ####[facility] [address] [place], [place] [address]QtDr. Duong Alcaraz VLDL CALC 5.4 mg/dL Normal [facility] Comment on above: Performed By: #### B ENERGY OPERATIONS VICE PRESIDENT, TSH, LIPID, CMP, T7 ####[facility] [address] [id number]. Duong Alcaraz PROF 14(COMP METB)on 022 Albumin [Mass/Vol] 3.5 g/dL Normal 3.4-5.0 [facility] Comment on above: Performed By: #### B ENERGY OPERATIONS VICE PRESIDENT, TSH, LIPID, CMP, T7 #### [facility] [address] [address] [address] Duong Alcaraz Albumin/Globulin [Mass ratio] 1.0 {ratio} Normal [facility] Comment on above: Performed By: #### B ENERGY OPERATIONS VICE PRESIDENT, TSH, LIPID, CMP, T7 #### [facility] [address] [address] [address] Duong Alcaraz ALP [Catalytic activity/Vol] 34 U/L Critically low 46-116 [facility] Comment on above: Performed By: #### B ENERGY OPERATIONS VICE PRESIDENT, TSH, LIPID, CMP, T7 #### [facility] [address] [address] [address] Duong Alcaraz ALT [Catalytic activity/Vol] 22 U/L Normal 14-59 [facility] Comment on above: Performed By: #### B ENERGY OPERATIONS VICE PRESIDENT, TSH, LIPID, CMP, T7 #### [facility] [address] [address] [address] Duong Alcaraz Anion gap [Moles/Vol] 12.3 mmol/L Normal [facility] Comment on above: Performed By: #### B ENERGY OPERATIONS VICE PRESIDENT, TSH, LIPID, CMP, T7 #### [facility] [address] [place] [address] Dr. Duong Alcaraz AST [Catalytic activity/Vol] 19 U/L Normal 15-37 [facility] Comment on above: Performed By: #### B ENERGY OPERATIONS VICE PRESIDENT, TSH, LIPID, CMP, T7 #### [facility] [address] [place] [address] Dr. Duong Alcaraz Bilirubin [Mass/Vol] 0.6 mg/dL Normal 0.2-1.0 [facility] Comment on above: Performed By: #### B ENERGY OPERATIONS VICE PRESIDENT, TSH, LIPID, CMP, T7 #### [facility] [address] [place] [address] Dr. Duong Alcaraz Calcium [Mass/Vol] 8.5 mg/dL Normal 8.5-10.1 [facility] Comment on above: Performed By: #### B ENERGY OPERATIONS VICE PRESIDENT, TSH, LIPID, CMP, T7 #### [facility] [address] [place] [address] Dr. Duong Alcaraz Chloride [Moles/Vol] 101 mmol/L Normal 98-107 [facility] Comment on above: Performed By: #### B ENERGY OPERATIONS VICE PRESIDENT, TSH, LIPID, CMP, T7 #### [facility] [address] [place] [address] Dr. Duong Alcaraz CO2 [Moles/Vol] 25.3 mmol/L Normal 21.0-32.0 [facility] Comment on above: Performed By: #### B ENERGY OPERATIONS VICE PRESIDENT, TSH, LIPID, CMP, T7 #### [facility] [address] [place] [address] Dr. Duong Alcaraz Creatinine [Mass/Vol] 0.64 mg/dL Normal 0.55-1.02 [facility] Comment on above: Performed By: #### B ENERGY OPERATIONS VICE PRESIDENT, TSH, LIPID, CMP, T7 #### [facility] [address] [place] [address] Dr. Duong Alcaraz EGFR-AF TRINIDADIAN >60 Normal >=60 [facility] Comment on above: Performed By: #### B ENERGY OPERATIONS VICE PRESIDENT, TSH, LIPID, CMP, T7 #### [facility] [address] [place] [address] Dr. Duong Alcaraz EGFR-NON AF TRINIDADIAN >60 Normal >=60 [facility] Comment on above: Performed By: #### B ENERGY OPERATIONS VICE PRESIDENT, TSH, LIPID, CMP, T7 #### [facility] [address] [address] [address] Duong Alcaraz Globulin (S) [Mass/Vol] 3.4 g/dL Normal [facility] Comment on above: Performed By: #### B ENERGY OPERATIONS VICE PRESIDENT, TSH, LIPID, CMP, T7 #### [facility] [address] [address] [address] Duong Alcaraz Glucose [Mass/Vol] 91 mg/dL Normal 74-106 [facility] Comment on above: Performed By: #### B ENERGY OPERATIONS VICE PRESIDENT, TSH, LIPID, CMP, T7 #### [facility] [address] [place] [address] Dr. Duong Alcaraz Potassium [Moles/Vol] 4.6 mmol/L Normal 3.5-5.1 [facility] Comment on above: Performed By: #### B ENERGY OPERATIONS VICE PRESIDENT, TSH, LIPID, CMP, T7 #### [facility] [address] [address] [address] Duong Alcaraz Protein [Mass/Vol] 6.9 g/dL Normal 6.4-8.2 [facility] Comment on above: Performed By: #### B ENERGY OPERATIONS VICE PRESIDENT, TSH, LIPID, CMP, T7 #### [facility] [address] [place] [address] Dr. Duong Alcaraz Sodium [Moles/Vol] 134 mmol/L Critically low 136-145 [facility] Comment on above: Performed By: #### B ENERGY OPERATIONS VICE PRESIDENT, TSH, LIPID, CMP, T7 #### [facility] [address] [address] [address] Duong Alcaraz Urea nitrogen [Mass/Vol] 11.0 mg/dL Normal 7.0-18.0 [facility] Comment on above: Performed By: #### B ENERGY OPERATIONS VICE PRESIDENT, TSH, LIPID, CMP, T7 #### [facility] [address] [address] [address] Duong Alcaraz Urea nitrogen/Creatinine [Mass ratio] 17.2 mg/mg Normal [facility] Comment on above: Performed By: #### B ENERGY OPERATIONS VICE PRESIDENT, TSH, LIPID, CMP, T7 #### [facility] [address] [place], [place] [address] Dr. Duong Alcaraz TSHon 10-04-2021 TSH 1.568 uIU/mL Normal 0.358-3.740 [facility] Comment on above: Performed By: #### B ENERGY OPERATIONS VICE PRESIDENT, TSH, LIPID, CMP, T7 ####[facility] [address] [place], [place] [address]LpDr. Duong Alcaraz TSH RANGE SEE BELOW Normal [facility] Comment on above: Result Comment: <0.3 4 UIU/ml HYPERTHYROID 0.34-5.60 UIU/ml EUTHYROID >5.60 UIU/ml HYPOTHYROID Performed By: #### B ENERGY OPERATIONS VICE PRESIDENT, TSH, LIPID, CMP, T7 ####[facility] [address] [place], [place] [address]LgDr. Duong Alcaraz MG MAMM SCREEN 3D ALONSO CADon 09-15-2021 MG MAMM SCREEN 3D ALONSO CAD Patient: GLENIS PEREZ Exam Date: 09/15/2021 : 1950 Gender:F Ordering : DR ANDIE FORDE . Admission #: [id number] Family : Order #: [id number] CLICK HERE TO VIEW EXAM RADIOLOGY REPORT [...] Treatments None Family Cancers None LOCATION: [facility] BREAST COMPOSITION: Heterogeneously dense,which may obscure [...] Ortega M.D. on 09/15/2021 at 15:08 Normal [facility] XR DEXA BONE DENSITYon 09-15 XR [...] by: GRANT ORTEGA Date: 2021-09-15 08:58 Normal [facility] Cardiovascular Lab Reporton 11-12-2020 Cardiovascular Lab Report [facility] Patient Name: Chris Glenis [facility] MR #: [id number] Physician: Doe Velez, Department of M.D. Medicine Service Date: 11/11/2020 Division of Birthdate: 1950 Cardiology Room #: [facility] [place] [address] Cardiovascular Laboratory Report CLINICAL PRESENTATION: The patient [...] left radial artery. Using ultrasound guidance, a 6-Bahraini Terumo Glidesheath slender was placed in the left radial artery. The radial anti-vasospasm cocktail of nitroglycerin 200 mcg and verapamil 2.5 mg was administered through the sheath. All catheter exchanges were made over the Magic Torque guidewire. A 5-Bahraini JR4 used to engage the right coronary artery. A 5-Bahraini JL4 used to engage the left main [...] Velez M.D. Date Trans: 11/12/2020 05:34 A/viri [id number] cc: Siddharth Nolasco MD Dept Of Cardiology [address] [facility] [address] Andie Forde M.D. [address] [address] Parul Fitzpatrick CNP [address] [facility] Mailstop 1118 [facility] [address] Normal [facility] Formson 08-26-2020 Forms [id number] .[id number]:127 Normal [facility] Physician Referralon 021 Physician Referral [id number]:127 Normal [facility] Ambulatory Clinical Summaryo n 08-25-2020 Ambulatory Clinical Summary {[id number]}CD:[id number] Gaviota Griffin [facility] Patient Educationon 08-26-19 Patient Education [...] Document Reviewed: 05/18/2012 ExitCare? Patient Information ?2013 [employer] Urology Office/Clinic Noteon 08-25-2020 Urology Office/Clinic Note Chief Complaint New patient cystocele This 69-year-old female is being scheduled for cystocele repair by her loom repairer. Requested stent placement to aid in dissection [...] Urnls Dip Stick Auto w/o Microscopy POC [id number] Urology Procedure Order 2. UTI (urinary tract infection) (N39.0: Urinary tract infection, site not specified) UA today appears to be infected with positive nitrate. Will start pt. on Cipro 500mg bid, #6. Script sent to [facility] in [place]. Ordered: Urology Procedure Order 3. Microscopic hematuria (R31.29: Other microscopic hematuria) UA today - trace intact. Ordered: Urology Procedure Order Orders: ciprofloxacin, 500 mg = 1 tab(s), Oral, q12hr, X 3 day(s), # 6 tab(s), Refills(s) 0, Pharmacy: [facility] 1155, 160, cm, 08/25/20 11:31:00 EDT, Height/Length Dosing, 75.6, kg, 08/25/20 11:31:00 EDT, Weight Dosing I have reviewed the previous health record information and history for this pt. from Dr. Gonzalez. Follow-up With When Contact Information Carlos Alvarado MD, Dallin Malik, [facility] [address] [place] [id number]- Additional Instructions: Patient Education Urinary Tract Infection INegra (more content not included)... Normal [facility] Comment on above: Result Comment: Elec tronically Signed By: Dallin Gonzalez Jr., MD\.br\Date and Time Signed: 08/25/20 13:08 EDT\.br\Electronically Co-Signed By: Negra Mccullough MA\.br\Date and Time Co-Signed: 08/25/20 11:50 EDT Vital Signs Date Time Vital Sign Value Performing Clinician Facility 02-27-2023 10:15-0500 Body height 161.29 cm Tomás Wills Other [facility] Other 11-28-2022 11:00-0400 Body height 161.29 cm Tomás Wills Other [facility] Other 11-28-2022 11:00-0400 Body mass index (BMI) [Ratio] 27.55 kg/m2 Tomás Wills Other [facility] Other 11-28-2022 11:00-0400 Body weight 71.67 kg Tomás Wills Other [facility] Other 09-28-2022 13:15-0400 Body height 161.29 cm Tomás Wills Other [facility] Other 09-28-2022 13:15-0400 Body mass index (BMI) [Ratio] 27.9 kg/m2 Tomás Wills Other [facility] Other 09-28-2022 13:15-0400 Body weight 72.58 kg Tomás Wills Other [facility] Other 04-22-2022 16:30-0500 Body height 161.29 cm Linda Hall Other [facility] Other 04-22-2022 16:30-0500 Body mass index (BMI) [Ratio] 27.02 kg/m2 Linda Hall Other [facility] Other 04-22-2022 16:30-0500 Body temperature 96.4 [degF] Linda Hall Other [facility] Other 04-22-2022 16:30-0500 Body weight 70.31 kg Linda Hall Other [facility] Other 04-22-2022 16:30-0500 Respiratory rate 18 /min Linda Hall Other [facility] Other 04-22-2022 16:30-0500 SaO2% (BldA) [Mass fraction] 98 % Linda Hall Other [facility] Other Encounters Encounter Date Encounter Type Care Provider Facility Start: 01-08-2024 End: 01-08-2024 ambulatory [facility] Start: 11-22-2023 End: 11-22-2023 ambulatory FRANK E RINKES Not Available Start: 07-13-2023 End: 07-13-2023 ambulatory FRANK E RINKES Not Available Start: 04-04-2023 End: 04-04-2023 ambulatory FRANK E RINKES Not Available Start: 02-27-2023 Office outpatient vi sit 15 minutes Tomás Wills [facility] Start: 02-27-2023 End: 02-27-2023 ambulatory Tomás Wills [facility] [employer] [facility] [employer] Other Start: 01-18-2023 End: 01-18-2023 ambulatory Tomás Wills Other [facility] Other Start: 01-18-2023 Telephone encounter Tomás CHRISTENSEN [facility] Start: 12-28-2022 End: 12-28-2022 ambulatory Tomás Wills Other [facility] Other Start: 12-28-2022 Telephone encounter Tomás CHRISTENSEN [facility] Start: 11-28-2022 End: 11-28-2022 ambulatory Tomás Wills Other [facility] Other Start: 11-28-2022 Postop follow up vis it related to original px Tomás Wills [facility] Start: 09-28-2022 End: 09-28-2022 ambulatory Tomás Wills Other [facility] Other Start: 09-28-2022 Postop follow up vis it related to original px Tomás Wills [facility] Start: 09-23-2022 End: 09-23-2022 ambulatory Tomás Wills Other [facility] Other Start: 09-23-2022 Telephone encounter Tomás Wills [facility] Start: 09-13-2022 End: 09-13-2022 ambulatory Andie Forde Facility:[facility] Start: 08-24-2022 End: 08-24-2022 ambulatory Tomás Wills Facility:[facility] Start: 08-19-2022 End: 08-20-[address] ANDIE FORDE . Facility:[facility] Start: 08-12-2022 End: 08-12-2022 ambulatory Tomás Wills Facility:[facility] Start: 07-04-2022 End: 07-05-[address] ANDIE FORDE . Facility:[facility] Start: 06-22-2022 End: 06-23-[address] ANDIE FORDE . Facility:[facility] Start: 04-22-2022 End: 04-22-2022 ambulatory Linda Hall Other [facility] Other Start: 04-22-2022 Office outpatient ne w [...] Start: 11-11-2020 End: 11-12-2020 ambulatory DOE VELEZ Facility:[facility] Payers Date Payer Category Payer Self-pay 1961 Medicare [id number] 1961 Unknown [id number] 1950 Unknown [id number] 2.16.8 40.1.154329.3.579.2.647 1948 Unknown [id number] 2.16.84 0.1.246575.3.579.2.593 1948 Unknown [id number] 2.16.84 0.1.978282.3.579.2.593 1948 Unknown [id number] 2.16.84 0.1.871672.3.579.2.593 1948 Unknown [id number] 2.16.84 0.1.055655.3.579.2.593 1948 Unknown [id number] 2.16.84 0.1.459479.3.579.2.593 1948 Unknown [id number] 2.16.84 0.1.268017.3.579.2.593 1948 Unknown [id number] 2.16.84 0.1.982123.3.579.2.593 1948 Unknown [id number] 2.16.84 0.1.072100.3.579.2.593 1948 Unknown [id number] 2.16.84 0.1.608784.3.579.2.593 1948 Unknown [id number] 2.16.84 0.1.790268.3.579.2.593 1948 Unknown [id number] 2.16.84 0.1.903813.3.579.2.593 1948 Unknown [id number] 2.16.84 0.1.746370.3.579.2.593 1948 Unknown [id number] 2.16.84 0.1.238449.3.579.2.1259 1948 Unknown [id number] 2.16.84 0.1.758906.3.579.2.1259 1948 Unknown [id number] 2.16.840 .1.609340.3.579.2.1259 Unknown [id number] 2.1 6.840.1.293938.19 Unknown [id number] 2.16.8 40.1.076941.3.579.2.531 Unknown [id number] 2.16.8 40.1.447628.3.579.2.531 Unknown [id number] 2.16.8 40.1.971527.3.579.2.531 Unknown [id number] 2.16.8 40.1.000075.3.579.2.531 Social History Date Type Detail Facility Sex Assigned At [facility] Other Clinical Notes 04-22-2022 to 01-08-2024 Note Date & Type Note Facility 01-08-2024 Note Continue carvedilol currently remains stable. [facility] 01-08-2024 Note Currently no concern ing symptoms and patient denies any palpitations. Continue carvedilol 12.5 mg twice daily. [facility] 01-08-2024 Note Hypertension is well -controlled currently. Continue carvedilol and hydrochlorothiazide Renal function and electrolytes are normal She does admit to occasional lightheadedness with low blood pressure denies any syncope or near syncope. Admits that typical days she does not hydrate well enough and likes to drink ice tea therefore we discussed adequate hydration. [facility] 01-08-2024 Note [facility]TP CARDIOLOGY PROGR ESS NOTE [...] and likes t (more content not included)... [facility] 01-08-2024 Note Pt here for a one ye ar follow up. Pt denies chest pain, palpatation, sob. Review of Systems Constitutional: Negative for chills, decreased appetite, fever and weight gain. Cardiovascular: Positive for leg swelling (swelling in left ankle). Negative for chest pain, dyspnea on exertion, irregular heartbeat, near-syncope, orthopnea, palpitations, paroxysmal nocturnal dyspnea and syncope. All other systems reviewed and are negative. [facility] 02-27-2023 Evaluation note Encounter Date Diagnosis Assessment [...] from surgery. Continue motion and strengthening exercises longterm. Activity as tolerated. Call with questions/anuradha rns. Provided AAOS hand out on hip conditioning and IT band exercises. [facility] Other 09-06-2023 Evaluation note* Encounter Date Diagnosis Assessment Notes Treatment Notes Treatment Clinical Notes Dec, History of total left knee replacement (ICD-10 - Z96.652) [facility] Other 08-07-2023 Evaluation note* Encounter Date Diagnosis [...] total left knee replacement (ICD-10 - Z96.652) [facility] Other 06-07-2023 Evaluation note* Encounter Date Diagnosis [...] meniscus of left knee (ICD-10 - M23.307) [facility] Other 06-02-2023 Evaluation note* Encounter Date Diagnosis Assessment Notes Treatment Notes Treatment Clinical Notes Sep, Primary osteoarthritis of left knee (ICD-10 - M17.12) [facility] Other 03-01-2023 NotePROCEDURE: XR KNEE LT 4V or > COMPARISON: 04/09/2021 HISTORY: Pain of left knee joint FINDINGS: BONES:No acute fracture or dislocation. 7 mm osteochondral injury medial femoral condyle. Tricompartmental osteoarthropathy most significant in the medial compartment SOFT TISSUES:Negative. No visible soft tissue swelling. EFFUSION:None visible. OTHER: Negative. IMPRESSION: Osteochondral injury medial femoral condyle Electronically authenticated by: LISET MEZA Date: 2022-06-22 17:[address] [place], [place] [address]12-30-2022 Evaluation note* Encounter Date Diagnosis Assessment Notes [...] treatment plan Mar, Headache (ICD-10 - R51.9) [facility] [employer] Other Evaluation noteNo InformationNortUP[facility] [employer] Other History general Narrative - Reported* Type Description Date Medical History hx of hypertension Surgical History tubiligation Surgical History [place] [facility] Hospitalization History vaginal child x 3 [facility] [employer] Other History general Narrative - Reported* Type Description Date Medical History hx of hypertension Medical History PVC Medical History osteoarthritis of the left knee Surgical History tubiligation Surgical History [place] [facility]raction Hospitalization History vaginal child x 3 [facility] [employer] Other History general Narrative - Reported* Type Description Date Medical History hx of hypertension Medical History PVC Medical History osteoarthritis of the left knee Surgical History tubiligation Surgical History [place] [facility] Extraction Surgical History left total knee arthroplasty Hospitalization History vaginal child x 3 [facility] [employer] Other Summary Purpose Family History No Family [...] section and content) DATE CREATED AUTHOR [facility]24/2020 [facility] DATE CREATED AUTHOR AUTHOR'S ORGANIZ ATION 11/18/2020 [facility] DATE CREATED AUTHOR AUTHOR'S ORGANIZ ATION 08/26/2022 [facility] DATE CREATED AUTHOR AUTHOR'S ORGANIZ ATION 05/13/2023 [facility] DATE CREATED AUTHOR AUTHOR'S ORGANIZ ATION 11/25/2023 [facility] DATE CREATED AUTHOR AUTHOR'S ORGANIZ ATION 01/09/2024 [facility] REASON FOR VISIT (unrecogniz ed section and [...] BE BASED ON THE PRIMARY CLINICAL RECORDS. [employer] provides no warranty or guarantee of the accuracy or completeness of information in this document.
[2024-02-05 13:15] LABS: Bilirubin Urine NEGATIVE (NEGATIVE); Blood Urine MODERATE (NEGATIVE); Clarity Urine SL CLOUDY (CLEAR); Color Urine LT. YELLOW (YELLOW); Glucose Urine UA NEGATIVE (NEGATIVE); Ketones Urine NEGATIVE (NEGATIVE); Leukocyte Esterase Urine MODERATE (NEGATIVE); Nitrite Urine NEGATIVE (NEGATIVE); Protein Urine NEGATIVE (NEG/TRACE); Urobilinogen Urine 0.2 EU/dL (0.2-1.0)
[2024-02-05 13:38] LABS: Bacteria Urine SMALL #/HPF (NONE SEEN); Cast Seen? NONE SEEN #/LPF (NONE SEEN); Crystals Seen? None Seen #/HPF (None Seen); Mucus Urine NONE SEEN (NONE SEEN); Squamous Epithelial Cell Urine RARE #/LPF (NONE/RARE); WBC Urine >100 #/HPF (NONE SEEN)
== END 2024-02-05 12:51 | disposition home or self-care (01) ==
LOC: LAB 12:50
PROVIDERS: PCP Family Medicine; Visit Provider Family Medicine
DX: N39.0 Urinary tract infection, site not specified (principal)
CPT/HCPCS: 81001; 87086

== ENCOUNTER 2024-02-16 09:08 | Outpatient (OUT) | payer MEDICARE, OTHER, SELFPAY ==
--- NOTE | 2024-02-16 09:17 | CT_ITS ---
[address] [address] Patient Name: LOYD ARELLANO MRN: [id number] date: 1950 Sex: F Assigned Patient Location: CT Current Patient Location: Accession/Order Number: [id number] Exam Date: 02/16/2024 09:58 Report Date: 02/17/2024 08:54 At the request of: NON-STAFF PHYSICIAN Procedure: CT abdomen pelvis wo/w con EXAMINATION: CT abdomen pelvis wo/w con HISTORY: Frequent Urinary Tract Infections COMPARISON: No relevant comparison available. TECHNIQUE: Axial, Coronal, and Sagittal images were obtained without and/or with IV contrast as indicated by examination type. Dose reduction techniques were achieved by using automated exposure control and/or adjustment of mA and/or kV according to patient size and/or use of iterative reconstruction technique. FINDINGS: LUNG BASES: No visible pulmonary or pleural disease. LIVER: 2 small benign-appearing cysts within right hepatic lobe. No enlargement, atrophy, suspicious density, or significant focal lesion. BILIARY: No dilatation or calcification. PANCREAS: No lesion, fluid collection, or abnormal duct dilatation. SPLEEN: No enlargement or focal lesion. ADRENALS: No mass or enlargement. KIDNEYS: No mass, obstruction, or calcification. BOWEL/MESENTERY: No visible mass, obstruction, or bowel wall thickening. AORTA/VASCULAR: No aneurysm or dissection. RETROPERITONEUM: No mass or adenopathy. LYMPH NODES: No adenopathy. URINARY BLADDER: No visible focal wall thickening, lesion, or calculus. PELVIC ORGANS: Hysterectomy. ABDOMINAL WALL: No mass or hernia. BONES: No bony lesion or fracture. OTHER: Negative. CT/CT abdomen pelvis wo/w con IMPRESSION: 1. No urinary tract calculi, mass, obstructive uropathy, or suspicious findings to account for patient's symptoms. Electronically authenticated by: YON MADISON Date: 02/17/2024 08:54
--- OUTSIDE RECORDS SUMMARY | 2024-02-16 09:17 | XMS_ITS | CCD ---
Author Organization [facility] Care Team Providers Care Risk Management Manager Name Role Phone DOE EVLEZ Attending Unavailable DOE VELEZ Admitting Unavailable GOPIYANDIE [...] Unavailable HOY ., DR CHAVES Consulting Unavailable QUENEMO, DR LISET Cuadra Consulting Unavailable HOY ., [...] (antibiotic) (1 source) Penicillin Drug Allergy 1 [facility] Repository Tetracyclines (antibiotic) (1 source) Tetracyclines Drug Allergy 1 [facility] Repository (7 sources) Penicillin Drug Allergy Unknown [facility] Other (8 sources) Tetracycline; Translations: [TETRACYCLINE] Drug Allergy 2 [facility] Repository (2 sources) Penicillins; Translations: [PENICILLINS] Drug allergy (disorder) 4 [facility] Repository (1 source) Tetracycline Drug Allergy 4 [facility] Repository (1 source) Penicillins Drug allergy (disorder) 3 [facility] Repository (1 source) Tetracycline Drug Allergy 3 [facility] Repository Medications Current Medications Medication [...] Not-Taking Start: 09-09-2022 take 1 capsule by [facility] every twelve hours Clindamycin HCl 300 MG [...] Range Facility Office Visiton 01-08-2024 Follow-up visit [id number] Glenis Perez 1950 F Date Provider Department Center 01/08/2024 [facility]TAT[facility] ARANA Family History Problem Relation Age of Onset Heart attack Mother Coronary artery disease Mother Other Brother Family Status - Relation Status Age at Mother Brother Level of Service:18051 CT OFFICE/OUTPATIENT ESTABLISHED SF MDM 10 MIN Normal [facility] XR knee LT 2Von 02-27-2023 XR knee LT 2V [facility] [address] [place] [address] XRay Report Signed Patient: Glenis Perez MR#: [id number] 42 : 1950 Acct:[id number] Age/Sex: 72 / F ADM Date: 02/27/23 Loc: [facility] Room: Type: [facility] CLI Attending Dr: Tomás Wills DO Copies to: Tmoás Wills DO Ordering Provider: Tomás Wills DO [...] Raúl Woo M.D.02/27/2023 3:08 PM Dictation Location: [place] [address] Transcribed By: [facility] 02/27/23 1508 Dictated By: Raúl Woo DO 02/27/23 1508 Signed By: 02/27/23 1508 Normal [facility] XR knee LT 2V [facility] [employer] Other XR knee LT 2V [facility] [employer] Other XR knee LT 2V [address] [facility] [employer] Other XR knee LT 2[place] [address] [facility] [employer] Other XR knee LT 2V XRay Report [facility] [employer] Other XR knee LT 2V Signed [facility] [employer] Other XR knee LT 2V Patient: Glenis Perez MR#: [id number] [facility] [employer] Other XR knee LT 2V 42 [facility] [employer] Other XR knee LT 2V : 1950 Acct:[id number] [facility] Other XR knee LT 2V Age/Sex: 72 / F ADM Date: 02/27/23 [facility] Other XR knee LT 2V Loc: [place] Room: Type : [facility] Other XR knee LT 2V Attending Dr: Tomás Wills DO [facility] Other XR knee LT 2V Copies to: Tomás Wills DO [facility] Other XR knee LT 2V Ordering Provider: Tomás Wills DO [facility] Other XR knee LT 2V Date of Service: 02/27/23 [facility] Other XR knee LT 2V XR/XR knee LT 2V: Status post total left knee replacement [facility] Other XR knee LT 2V 2 views LEFT knee plain film [facility] Other XR knee LT 2V COMPARISON: 09/13/22 N [employer] Other XR knee LT 2V HISTORY: Status post LEFT total knee arthroplasty [facility] Other XR knee LT 2V ACUTE FINDINGS: None [facility] [employer] Other XR knee LT 2V DEGENERATIVE CHANGE: Unremarkable [facility] Other XR knee LT 2V SOFT TISSUE FINDINGS : Unremarkable [facility] Other XR knee LT 2V JOINT EFFUSION: None [facility] [employer] Other XR knee LT 2V POSTOP CHANGES: Stable hardware [facility] Other XR knee LT 2V BONE MINERALIZATION: Adequate [facility] Other XR knee LT 2V XR/XR knee LT 2V [facility] Other XR knee LT 2V IMPRESSION: Uncomplicated LEFT knee arthroplasty [facility] Other XR knee LT 2V Impression dictated by: Raúl Woo M.D.02/27/2023 3:08 PM [facility] Other XR knee LT 2V Dictation Location: [place] [address] [facility] Other XR knee LT 2V Transcribed By: PWS 02/27/23 [facility] Other XR knee LT 2V Dictated By: Raúl Woo DO 02/27/23 [facility] [employer] Other XR knee LT 2V Signed By: [facility] Other XR knee LT 2V 02/27/23 [facility] [employer] Other [place] 09-13-2022 L - -------- Specimen: [id number] Received: 09/13/22 Status: LUZ Lynn Num: [id number] Spec Type: Surgical Subm Dr: Tomás Wills DO Tissues: A Joint/Knee (LT KNEE) Procedures: Gross/Micro L4, Decalcification -------- Age/ Patient Sex Location Account Attending Physician -------- Glenis Perez Ann 71/F [place] [id number] Tomás Wills DO -------- SPEC NUM: [id number] RECD: 09/13/22 STATUS: LUZ LYNN NUM: [id number] SETH: 09/13/22- [facility] DR: Tomás Wills DO ENTERED: 09/13/[address] [facility] [address]: ANDREW TYPE: Surgical DEPT: S [...] is taken. Gross examination only. CPT Codes 74534 Gross Photo -------- -------- Specimen: [id number] Received: 09/13/22 Status: LUZ Rogelzaina Num: [id number] Spec Type: Surgical Subm Dr: Tomás Wills DO Tissues: A Joint/Knee (LT KNEE) Procedures: Gross/Micro L4, Decalcification -------- Patient: Glenis Perez Ann [id number] (Continued) -------- Signed (signature on file) Kendra Guzman MD 09/14/22 1033 Normal [facility] XR knee LT 2Von 09-13-2022 XR knee LT 2V [address] [address] XRay Report Signed Patient: Glenis Perez MR#: [id number] [birth year] : 1950 Acct:[id number] Age/Sex: 71 / F ADM Date: 09/13/22 Loc: [place] Room: Type: [facility] Attending Dr: Tomás Wills DO Copies to: [...] Sameer Guy M.D.09/13/2022 3:01 PM Dictation Location: [place] [address] Transcribed By: [facility] 09/13/22 1501 Dictated By: Sameer Guy II, MD 09/13/22 1500 Signed By: 09/13/22 1501 Normal [facility] PROF CHEM 8 (BAS METB)on Anion gap [Moles/Vol] 10.3 mmol/L Normal [facility] Comment on above: Performed By: #### B MP #### [facility] Laboratory [address] [place] [address] [address] Duong Alcaraz Calcium [Mass/Vol] 9.3 mg/dL Normal 8.5-10.1 [facility] Comment on above: Performed By: #### B MP #### [facility] [address] [place] [address] [address] Duong Alcaraz Chloride [Moles/Vol] 95 mmol/L Critically low 98-107 [facility] Comment on above: Performed By: #### B MP #### [facility] [address] [place] [address] [address] Duong Alcaraz CO2 [Moles/Vol] 30.6 mmol/L Normal 21.0-32.0 [facility] Comment on above: Performed By: #### B MP #### [facility] [address] [place] [address] [address] Duong Alcaraz Creatinine [Mass/Vol] 0.69 mg/dL Normal 0.55-1.02 [facility] Comment on above: Performed By: #### B MP #### [facility] [address] [place] [address] [address] Duong Alcaraz EGFR-AF SERBIAN >60 Normal >=60 [facility] Comment on above: Performed By: #### B MP #### [facility] [address] [place] [address] [address] Duong Alcaraz EGFR-NON AF SERBIAN >60 Normal >=60 [facility] Comment on above: Performed By: #### B MP #### [facility] [address] [place] [address] [address] Duong Alcaraz Glucose [Mass/Vol] 83 mg/dL Normal 74-106 [facility] Comment on above: Performed By: #### B MP #### [facility] [address] [place] [address] [address] Duong Alcaraz Potassium [Moles/Vol] 3.9 mmol/L Normal 3.5-5.1 [facility] Comment on above: Performed By: #### B MP #### [facility] [address] [place] [address] [address] Duong Alcaraz Sodium [Moles/Vol] 132 mmol/L Critically low 136-145 [facility] Comment on above: Performed By: #### B MP #### [facility] [address] [place] [address] [address] Duong Alcaraz Urea nitrogen [Mass/Vol] 12.0 mg/dL Normal 7.0-18.0 [facility] Comment on above: Performed By: #### B MP #### [facility] [address] [place] [address] Dr. Duong Alcaraz Urea nitrogen/Creatinine [Mass ratio] 17.4 mg/mg Normal [facility] Comment on above: Performed By: #### B MP #### [facility] [address] [place] [address] [address] Duong Alcaraz CMP with reflex to A1Con Albumin [Mass/Vol] 3.9 g/dL Normal 3.5-5.7 [facility] Comment on above: Performed By: #### C BC, CMP wRFX A1C #### [address] Albumin/Globulin [Mass ratio] 1.5 {ratio} Normal [facility] Comment on above: Performed By: #### C BC, CMP wRFX A1C #### [address] ALP [Catalytic activity/Vol] 34 U/L Normal 34-104 [facility] Comment on above: Result Comment: PERF ORMED BY: [place] [address] PATHOLOGIST SPINNING FRAME FIXER YAMILETH PERRY M.D. Performed By: #### C BC, CMP wRFX A1C #### [address] ALT [Catalytic activity/Vol] 14 U/L Normal 7-52 [facility] Comment on above: Performed By: #### C BC, CMP wRFX A1C #### [address] Anion gap [Moles/Vol] 11.1 mmol/L Normal 6.0-15.0 [facility] Comment on above: Performed By: #### C BC, CMP wRFX A1C #### [address] AST [Catalytic activity/Vol] 18 U/L Normal 13-39 [facility] Comment on above: Performed By: #### C BC, CMP wRFX A1C #### [place] [address] [place] Bilirubin [Mass/Vol] 0.6 mg/dL Normal 0.3-1.0 [facility] Comment on above: Performed By: #### C BC, CMP wRFX A1C #### [place] [address] [place] Calcium [Mass/Vol] 8.4 mg/dL Low 8.6-10.3 [facility] Comment on above: Performed By: #### C BC, CMP wRFX A1C #### [facility] [address] [place] [address] Chloride [Moles/Vol] 94 mmol/L Low 98-107 [facility] Comment on above: Performed By: #### C BC, CMP wRFX A1C #### [facility] [address] [place] [address] CO2 [Moles/Vol] 28.0 mmol/L Normal 21.0-31.0 [facility] Comment on above: Performed By: #### C BC, CMP wRFX A1C #### [address] Creatinine [Mass/Vol] 0.68 mg/dL Normal 0.60-1.20 [facility] Comment on above: Performed By: #### C BC, CMP wRFX A1C #### [place] [address] [place] GFR/1.73 sq M.predicted MDRD (S/P/Bld) [Vol rate/Area] mL/min/{1.73_m2} [facility] Comment on above: Performed By: #### C BC, CMP wRFX A1C #### [address] Globulin (S) [Mass/Vol] 2.6 g/dL Normal [facility] Comment on above: Performed By: #### C BC, CMP wRFX A1C #### [place] [address] [place] Glucose [Mass/Vol] 88 mg/dL Normal 70-100 [facility] Comment on above: Performed By: #### C BC, CMP wRFX A1C #### [facility] [address] [place] [address] Potassium [Moles/Vol] 4.1 mmol/L Normal 3.5-5.1 [facility] Comment on above: Performed By: #### C BC, CMP wRFX A1C #### [facility] [address] Protein [Mass/Vol] 6.5 g/dL Normal 6.4-8.9 [facility] Comment on above: Performed By: #### C BC, CMP wRFX A1C #### [facility] [address] Sodium [Moles/Vol] 129 mmol/L Low 136-145 [facility] Comment on above: Performed By: #### C BC, CMP wRFX A1C #### [facility] [address] Urea nitrogen [Mass/Vol] 19 mg/dL Normal 7-25 [facility] Comment on above: Performed By: #### C BC, CMP wRFX A1C #### [facility] [address] Complete Blood Count Auto Di ffon 08-12-2022 Basophils (Bld) [#/Vol] 0.1 10*3/uL Normal 0.0-0.2 [facility] Comment on above: Result Comment: PERF ORMED BY: [place] [address] PATHOLOGIST [employer]IN[employer]ING [employer]ER YAMILETH PERRY M.D. Performed By: #### C BC, CMP wRFX A1C #### [place] [address] [place] Basophils/100 WBC (Bld) 1.3 % Normal . [facility] Comment on above: Performed By: #### C BC, CMP wRFX A1C #### [facility] [address] [place] [address] [place] Eosinophils (Bld) [#/Vol] 0.1 10*3/uL Normal 0.0-0.45 [facility] Comment on above: Performed By: #### C BC, CMP wRFX A1C #### [facility] [address] [place] [address] [place] Eosinophils/100 WBC (Bld) 1.6 % Normal . [facility] Comment on above: Performed By: #### C BC, CMP wRFX A1C #### [facility] [address] Erythrocyte distribution width (RBC) [Ratio] 13.6 % Normal 11.9-15.3 [facility] Comment on above: Performed By: #### C BC, CMP wRFX A1C #### [address] Hematocrit (Bld) [Volume fraction] 35.9 % Normal 34.0-46.4 [facility] Comment on above: Performed By: #### C BC, CMP wRFX A1C #### [address] Hemoglobin (Bld) [Mass/Vol] 12.6 g/dL Normal 11.8-15.4 [facility] Comment on above: Performed By: #### C BC, CMP wRFX A1C #### [address] Lymphocytes (Bld) [#/Vol] 0.7 10*3/uL Low 1.00-4.8 [facility] Comment on above: Performed By: #### C BC, CMP wRFX A1C #### [address] Lymphocytes/100 WBC (Bld) 14.6 % Normal . [facility] Comment on above: Performed By: #### C BC, CMP wRFX A1C #### [address] MCH (RBC) [Entitic mass] 31.8 pg Normal 24.7-34.3 [facility] Comment on above: Performed By: #### C BC, CMP wRFX A1C #### [address] MCV (RBC) [Entitic vol] 90.7 fL Normal 80-100 [facility] Comment on above: Performed By: #### C BC, CMP wRFX A1C #### [address] Mean Corpuscular HGB Conc 35.0 g/dL Normal 32.0-35.0 [facility] Comment on above: Performed By: #### C BC, CMP wRFX A1C #### [facility] [address] [place] [address] Monocytes (Bld) [#/Vol] 0.5 10*3/uL Normal 0.0-0.8 [facility] Comment on above: Performed By: #### C BC, CMP wRFX A1C #### [facility] [address] [place] [address] Monocytes/100 WBC (Bld) 10.4 % Normal . [facility] Comment on above: Performed By: #### C BC, CMP wRFX A1C #### [facility] [address] [place] [address] Neutrophils (Bld) [#/Vol] 3.7 10*3/uL Normal 1.8-7.7 [facility] Comment on above: Performed By: #### C BC, CMP wRFX A1C #### [address] Neutrophils/100 WBC (Bld) 72.1 % Normal . [facility] Comment on above: Performed By: #### C BC, CMP wRFX A1C #### [address] NRBC% 0.0 /100{WBC} Normal 0-0.5 [facility] Comment on above: Performed By: #### C BC, CMP wRFX A1C #### [facility] [address] [place] [address] Platelet mean volume (Bld) [Entitic vol] 6.2 fL Low 6.3-10.7 [facility] Comment on above: Performed By: #### C BC, CMP wRFX A1C #### [facility] [address] [place] [address] Platelets (Bld) [#/Vol] 241 10*3/uL Normal 150-450 [facility] Comment on above: Performed By: #### C BC, CMP wRFX A1C #### [facility] [address] [place] [address] [place] RBC (Bld) [#/Vol] 3.96 10*6/uL Normal 3.60-5.00 [facility] Comment on above: Performed By: #### C BC, CMP wRFX A1C #### [facility] [address] WBC (Bld) [#/Vol] 5.1 10*3/uL Normal 3.8-11.6 [facility] Comment on above: Performed By: #### C BC, CMP wRFX A1C #### [facility] [address] [place] [address] [place] Dipstick and Microscopicon 0 08-12-2022 Appearance (U) Clear Normal Clear [facility] Comment on above: Order Comment: Name Collection Type:: Clean-Voided Midstream Performed By: #### A DDONUAPLUS #### [place] [address] [place] Bacteria,Urine None Seen Normal None Seen [facility] Comment on above: Order Comment: Name Collection Type:: Clean-Voided Midstream Performed By: #### A DDONUAPLUS #### [place] [address] [place] Bilirubin,Urine Negative Normal Negative [facility] Comment on above: Order Comment: Name Collection Type:: Clean-Voided Midstream Performed By: #### A DDONUAPLUS #### [facility] [address] [place] [address] [place] Color (U) Yellow Normal Yellow [facility] Comment on above: Order Comment: Name Collection Type:: Clean-Voided Midstream Performed By: #### A DDONUAPLUS #### [facility] [address] [place] [address] [place] Glucose Ql (U) Normal Normal Normal [facility] Comment on above: Order Comment: Name Collection Type:: Clean-Voided Midstream Performed By: #### A DDONUAPLUS #### [facility] [address] [place] [address] [place] Hyaline Casts,Urine None Seen Normal 0-8 [facility] Comment on above: Order Comment: Name Collection Type:: Clean-Voided Midstream Result Comment: PERF ORMED BY: [place] [address] PATHOLOGIST SPIN[employer]ING [employer]AME [employer]ER YAMILETH PERRY M.D. Performed By: #### A DDONUAPLUS #### [facility] [address] [place] [address] Ketones Ql (U) Negative Normal Negative [facility] Comment on above: Order Comment: Name Collection Type:: Clean-Voided Midstream Performed By: #### A DDONUAPLUS #### [address] Leukocyte esterase Test strip Ql (U) 3+ High Negative [facility] Comment on above: Order Comment: Name Collection Type:: Clean-Voided Midstream Performed By: #### A DDONUAPLUS #### [place] [address] [place] Nitrite,Urine Negative Normal Negative [facility] Comment on above: Order Comment: Name Collection Type:: Clean-Voided Midstream Performed By: #### A DDONUAPLUS #### [place] [address] [place] Occult Blood,Urine Negative Normal Negative [facility] Comment on above: Order Comment: Name Collection Type:: Clean-Voided Midstream Result Comment: PERF ORMED BY: [place] [address] PATHOLOGIST SPIN[employer]ING [employer]ER YAMILETH PERRY M.D. Performed By: #### A DDONUAPLUS #### [place] [address] [place] pH (U) 7.0 [pH] Normal 5.0-9.0 [facility] Comment on above: Order Comment: Name Collection Type:: Clean-Voided Midstream Performed By: #### A DDONUAPLUS #### [place] [address] [place] Protein,Urine Negative Normal Negative [facility] Comment on above: Order Comment: Name Collection Type:: Clean-Voided Midstream Performed By: #### A DDONUAPLUS #### [address] RBC LM.HPF (Urine sed) [#/Area] 0 /[HPF] Normal 0-4 [facility] Comment on above: Order Comment: Name Collection Type:: Clean-Voided Midstream Performed By: #### A DDONUAPLUS #### [address] Specificy Molino,Urine 1.007 Normal 1.001-1.030 [facility] Comment on above: Order Comment: Name Collection Type:: Clean-Voided Midstream Performed By: #### A DDONUAPLUS #### [address] Squamous Epithelial Cell,Urine None Seen Normal 0-2 [facility] Comment on above: Order Comment: Name Collection Type:: Clean-Voided Midstream Performed By: #### A DDONUAPLUS #### [address] Urobilinogen,Urine Normal Normal Normal [facility] Comment on above: Order Comment: Name Collection Type:: Clean-Voided Midstream Performed By: #### A DDONUAPLUS #### [address] WBC,Urine 3-4 Normal 0-4 [facility] Comment on above: Order Comment: Name Collection Type:: Clean-Voided Midstream Performed By: #### A DDONUAPLUS #### [address] MRI KNEE LT WO CONon 07-04- [...] by: GRANT ORTEGA Date: 2022-07-04 12:13 Normal [facility] COVID/FLU/RSV RT-PCRon 04-22 SARS-CoV-2 (COVID-19) RNA CASH+probe Ql (Unsp spec) Negative [facility] Other COVID/FLU/RSV RT-PCR Negative [facility] Other CULTURE URINEon 04-14-2022 CULTURE URINE Isolate [...] F Trimethoprim/Sulfamet hoxazole <=20 S F Normal [facility] Comment on above: Performed By: #### U RCX ####[facility] [id number] [place] [address]Dr. Duong Alcaraz CALCIUMon 04-01-2022 Calcium [Mass/Vol] 9.4 mg/dL Normal 8.5-10.1 [facility] Comment on above: Performed By: #### C A, CREA ####[facility] [id number] [place] [address]Dr. Duong Alcaraz CREATININEon 04-01-2022 Creatinine [Mass/Vol] 0.73 mg/dL Normal 0.55-1.02 [facility] Comment on above: Performed By: #### C A, CREA ####[facility] [id number] [place] [address]Dr. Duong Alcaraz EGFR-AF SERBIAN >60 Normal >=60 [facility] Comment on above: Performed By: #### C A, CREA ####[facility] [address] [place] [address]Dr. Duong Alcaraz EGFR-NON AF SERBIAN >60 Normal >=60 [facility] Comment on above: Performed By: #### C A, CREA ####[facility] [id number] [place] [address]Dr. Duong Alcaraz PROF CHEM 8 (BAS METB)on Anion gap [Moles/Vol] 12.5 mmol/L Normal [facility] Comment on above: Performed By: #### B MP #### [facility] [address] [place] [address] [address] Duong Alcaraz Calcium [Mass/Vol] 8.8 mg/dL Normal 8.5-10.1 [facility] Comment on above: Performed By: #### B MP #### [facility] [address] [place] [address] [address] Duong Alcaraz Chloride [Moles/Vol] 95 mmol/L Critically low 98-107 [facility] Comment on above: Performed By: #### B MP #### [facility] [address] [place] [address] [address] Duong Alcaraz CO2 [Moles/Vol] 27.3 mmol/L Normal 21.0-32.0 [facility] Comment on above: Performed By: #### B MP #### [facility] [address] [address] [address] Duong Alcaraz Creatinine [Mass/Vol] 0.68 mg/dL Normal 0.55-1.02 [facility] Comment on above: Performed By: #### B MP #### [facility] [address] [place] [address] [address] Duong Alcaraz EGFR-AF SERBIAN >60 Normal >=60 [facility] Comment on above: Performed By: #### B MP #### [facility] [address] [address] [address] Duong Alcaraz EGFR-NON AF SERBIAN >60 Normal >=60 [facility] Comment on above: Performed By: #### B MP #### [facility] [address] [place] [address] [address] Duong Alcaraz Glucose [Mass/Vol] 98 mg/dL Normal 74-106 [facility] Comment on above: Performed By: #### B MP #### [facility] [address] [address] [address] Duong Alcaraz Potassium [Moles/Vol] 3.8 mmol/L Normal 3.5-5.1 [facility] Comment on above: Performed By: #### B MP #### [facility] [address] [address] [address] Duong Alcaraz Sodium [Moles/Vol] 131 mmol/L Critically low 136-145 [facility] Comment on above: Performed By: #### B MP #### [facility] [address] [address] [address] Duong Alcaraz Urea nitrogen [Mass/Vol] 14.0 mg/dL Normal 7.0-18.0 [facility] Comment on above: Performed By: #### B MP #### [facility] Laboratory [address] [address] [address] Duong Alcaraz Urea nitrogen/Creatinine [Mass ratio] 20.6 mg/mg Normal [facility] Comment on above: Performed By: #### B MP #### [facility] Laboratory [address] [address] [address] Duong Alcaraz BNPon 11-12-2021 Natriuretic peptide B (Bld) [Mass/Vol] 151.0 pg/mL Normal <=900.0 [facility] Comment on above: Performed By: #### C MP, BNP #### [facility] Laboratory [address] [address] [address] Duong Alcaraz CBC AUTO DIFFon 11-12-2021 BASO # 0.1 103/ul Normal 0.0-0.1 [facility] Comment on above: Performed By: #### C BC ####[facility] [address] [address]DrClovis Alcaraz Basophils/100 WBC (Bld) 1.3 % Normal 0.2-2.0 [facility] Comment on above: Performed By: #### C BC ####[facility] [address] [address]DrClovis Alcaraz EO # 0.2 103/ul Normal 0.0-0.7 [facility] Comment on above: Performed By: #### C BC ####[facility] [address] [address]Dr. Duong Alcaraz Eosinophils/100 WBC (Bld) 4.4 % Normal 0.9-7.0 [facility] Comment on above: Performed By: #### C BC ####[facility] [address] [address]DrClovis Alcaraz Erythrocyte distribution width (RBC) [Ratio] 12.3 % Normal 11.0-15.0 [facility] Comment on above: Performed By: #### C BC ####[facility] [address] [address]DrClovis Alcaraz Hematocrit (Bld) [Volume fraction] 36.4 % Normal 36.0-48.0 [facility] Comment on above: Performed By: #### C BC ####[facility] [address] [address]Dr. Duong Alcaraz Hemoglobin (Bld) [Mass/Vol] 12.8 g/dL Normal 12.0-16.0 [facility] Comment on above: Performed By: #### C BC ####[facility] [address] [address]Dr. Duong Alcaraz IG # 0.02 10e3/ul Normal 0.00-0.03 [facility] Comment on above: Performed By: #### C BC ####[facility] [address] [address]Dr. Duong Kieran IG % 0.5 % Normal 0.0-0.5 [facility] Comment on above: Performed By: #### C BC ####[facility] [address] [place], [place] [address]Dr. Selenastevo Kieran LYMPH # 0.8 103/ul Critically low 1.2-3.8 [facility] Comment on above: Performed By: #### C BC ####[facility] [address] [place], [place] [address]Dr. Duong Kieran Lymphocytes/100 WBC (Bld) 19.5 % Critically low 20.5-60.0 [facility] Comment on above: Performed By: #### C BC ####[facility] [address] [place], [place] [address]Dr. Selenastevo Alcaraz MANUAL DIFF REQ NO Normal [facility] Comment on above: Performed By: #### C BC ####[facility] [address] [place], [place] [address]Dr. Duong Kieran MCH (RBC) [Entitic mass] 31.7 pg Normal 26.7-34.0 [facility] Comment on above: Performed By: #### C BC ####[facility] [address] [address]Dr. Selenastevo Alcaraz MCHC (RBC) [Mass/Vol] 35.2 g/dL Normal 29.9-35.2 [facility] Comment on above: Performed By: #### C BC ####[facility] [address] [id number]. Duong Alcaraz MCV (RBC) [Entitic vol] 90.1 fL Normal 81.0-99.0 [facility] Comment on above: Performed By: #### C BC ####[facility] [address] [id number]. Duong Alcaraz MONO # 0.5 103/ul Normal 0.3-0.8 [facility] Comment on above: Performed By: #### C BC ####[facility] [address] [address]Dr. Duong Kieran Monocytes/100 WBC (Bld) 12.3 % Critically high 1.7-12.0 [facility] Comment on above: Performed By: #### C BC ####[facility] [address] [place], [place] [address]Dr. Duong Alcaraz NEUT # 2.4 103/ul Normal 1.4-6.5 [facility] Comment on above: Performed By: #### C BC ####[facility] [address] [place], [place] [address]Dr. Duong Kieran Neutrophils/100 WBC (Bld) 62.0 % Normal 43.0-75.0 [facility] Comment on above: Performed By: #### C BC ####[facility] [address] [place], [place] [address]Dr. Duong Kieran Platelet mean volume (Bld) [Entitic vol] 7.8 fL Critically low 9.5-13.5 [facility] Comment on above: Performed By: #### C BC ####[facility] [address] [place], [place] [address]Dr. Duong Kieran PLT 183 103/ul Normal 150-450 [facility] Comment on above: Performed By: #### C BC ####[facility] [address] [id number]. Duong Alcaraz RBC 4.04 106/ul Critically low 4.20-5.40 [facility] Comment on above: Performed By: #### C BC ####[facility] [address] [place], [place] [address]RyDr. Duong Alcaraz WBC 3.9 103/ul Critically low 4.0-11.0 [facility] Comment on above: Performed By: #### C BC ####[facility] [address] [id number]. Duong Alcaraz PROF 14(COMP METB)on 022 Albumin [Mass/Vol] 3.4 g/dL Normal 3.4-5.0 [facility] Comment on above: Performed By: #### C MP, BNP #### [facility] Laboratory [address] [address] [address] Duong Alcaraz Albumin/Globulin [Mass ratio] 0.9 {ratio} Normal [facility] Comment on above: Performed By: #### C MP, BNP #### [facility] Laboratory [address] [address] [address] Duong Alcaraz ALP [Catalytic activity/Vol] 33 U/L Critically low 46-116 [facility] Comment on above: Performed By: #### C MP, BNP #### [facility] Laboratory [address] [address] [address] Duong Alcaraz ALT [Catalytic activity/Vol] 21 U/L Normal 14-59 [facility] Comment on above: Performed By: #### C MP, BNP #### [facility] Laboratory [address] [address] [address] Duong Alcaraz Anion gap [Moles/Vol] 8.0 mmol/L Normal [facility] Comment on above: Performed By: #### C MP, BNP #### [facility] Laboratory [address] [address] [address] Duong Alcaraz AST [Catalytic activity/Vol] 26 U/L Normal 15-37 [facility] Comment on above: Performed By: #### C MP, BNP #### [facility] Laboratory [address] [address] [address] Duong Alcaraz Bilirubin [Mass/Vol] 0.6 mg/dL Normal 0.2-1.0 [facility] Comment on above: Performed By: #### C MP, BNP #### [facility] Laboratory [address] [place] [address] Dr. Duong Alcaraz Calcium [Mass/Vol] 8.8 mg/dL Normal 8.5-10.1 [facility] Comment on above: Performed By: #### C MP, BNP #### [facility] Laboratory [address] [place] [address] Dr. Duong Alcaraz Chloride [Moles/Vol] 98 mmol/L Normal 98-107 [facility] Comment on above: Performed By: #### C MP, BNP #### [facility] Laboratory [address] [place] [address] Dr. Duong Alcaraz CO2 [Moles/Vol] 29.7 mmol/L Normal 21.0-32.0 [facility] Comment on above: Performed By: #### C MP, BNP #### [facility] Laboratory [address] [place] [address] Dr. Duong Alcaraz Creatinine [Mass/Vol] 0.71 mg/dL Normal 0.55-1.02 [facility] Comment on above: Performed By: #### C MP, BNP #### [facility] Laboratory [address] [place] [address] Dr. Duong Alcaraz EGFR-AF SERBIAN >60 Normal >=60 [facility] Comment on above: Performed By: #### C MP, BNP #### [facility] Laboratory [address] [place] [address] Dr. Duong Alcaraz EGFR-NON AF SERBIAN >60 Normal >=60 [facility] Comment on above: Performed By: #### C MP, BNP #### [facility] Laboratory [address] [place] [address] Dr. Duong Alcaraz Globulin (S) [Mass/Vol] 3.8 g/dL Normal [facility] Comment on above: Performed By: #### C MP, BNP #### [facility] Laboratory [address] [place] [address] Dr. Duong Alcaraz Glucose [Mass/Vol] 94 mg/dL Normal 74-106 [facility] Comment on above: Performed By: #### C MP, BNP #### [facility] Laboratory [address] [address] [address] Duong Alcaraz Potassium [Moles/Vol] 3.7 mmol/L Normal 3.5-5.1 [facility] Comment on above: Performed By: #### C MP, BNP #### [facility] Laboratory [address] [address] [address] Duong Alcaraz Protein [Mass/Vol] 7.2 g/dL Normal 6.4-8.2 [facility] Comment on above: Performed By: #### C MP, BNP #### [facility] Laboratory [address] [address] [address] Duong Alcaraz Sodium [Moles/Vol] 132 mmol/L Critically low 136-145 [facility] Comment on above: Performed By: #### C MP, BNP #### [facility] Laboratory [address] [address] [address] Duong Alcaraz Urea nitrogen [Mass/Vol] 14.0 mg/dL Normal 7.0-18.0 [facility] Comment on above: Performed By: #### C MP, BNP #### [facility] Laboratory [address] [place] [address] Dr. Duong Alcaraz Urea nitrogen/Creatinine [Mass ratio] 19.7 mg/mg Normal [facility] Comment on above: Performed By: #### C MP, BNP #### [facility] Laboratory [address] [place] [address] Dr. Duong Alcaraz ECHOCARDIO M/2D COMPLETEon 0 11-03-2021 ECHOCARDIO M/2D COMPLETE Patient: GLENIS PEREZ Exam Date: 11/03/2021 : 1950 Gender:F Ordering : PARUL FITZPATRICK Admission #: [id number] Family : DR ANDIE FORDE . Order #: [id number] CLICK HERE TO VIEW EXAM ECHOCARDIOGRAM REPORT [...] Federico Riley M.D. on 11/03/2021 at 21:34 [facility] 10-04-2021 Natriuretic peptide B (Bld) [Mass/Vol] 200.0 pg/mL Normal <=900.0 [facility] Comment on above: Performed By: #### B CSR TECHNICIAN, TSH, LIPID, CMP, T7 ####[facility] [address] [place], [place] [address]VtDr. Duong Alcaraz CBC AUTO DIFFon 10-04-2021 BASO # 0.1 103/ul Normal 0.0-0.1 [facility] Comment on above: Performed By: #### C BC #### [facility] Laboratory [address] [address] [address] Duong Alcaraz Basophils/100 WBC (Bld) 1.2 % Normal 0.2-2.0 [facility] Comment on above: Performed By: #### C BC #### [facility] Laboratory [address] [address] [address] Duong Alcaraz EO # 0.1 103/ul Normal 0.0-0.7 [facility] Comment on above: Performed By: #### C BC #### [facility] Laboratory [address] [address] [address] Duong Alcaraz Eosinophils/100 WBC (Bld) 2.8 % Normal 0.9-7.0 [facility] Comment on above: Performed By: #### C BC #### [facility] Laboratory [address] [address] [address] Duong Alcaraz Erythrocyte distribution width (RBC) [Ratio] 12.2 % Normal 11.0-15.0 [facility] Comment on above: Performed By: #### C BC #### [facility] Laboratory [address] [address] [address] Duong Alcaraz Hematocrit (Bld) [Volume fraction] 37.0 % Normal 36.0-48.0 [facility] Comment on above: Performed By: #### C BC #### [facility] Laboratory [address] [address] [address] Duong Alcaraz Hemoglobin (Bld) [Mass/Vol] 12.6 g/dL Normal 12.0-16.0 [facility] Comment on above: Performed By: #### C BC #### [facility] Laboratory [address] [address] [address] Duong Alcaraz IG # 0.03 10e3/ul Normal 0.00-0.03 [facility] Comment on above: Performed By: #### C BC #### [facility] Laboratory [address] [address] [address] Duong Alcaraz IG % 0.7 % Critically high 0.0-0.5 [facility] Comment on above: Performed By: #### C BC #### [facility] Laboratory [address] [place] [address] Dr. Duong Alcaraz LYMPH # 0.7 103/ul Critically low 1.2-3.8 [facility] Comment on above: Performed By: #### C BC #### [facility] Laboratory [address] [place] [address] Dr. Duong Alcaraz Lymphocytes/100 WBC (Bld) 16.0 % Critically low 20.5-60.0 [facility] Comment on above: Performed By: #### C BC #### [facility] Laboratory [address] [place] [address] Dr. Duong Alcaraz MANUAL DIFF REQ NO Normal [facility] Comment on above: Performed By: #### C BC #### [facility] Laboratory [address] [place] [address] Dr. Duong Alcaraz MCH (RBC) [Entitic mass] 31.4 pg Normal 26.7-34.0 [facility] Comment on above: Performed By: #### C BC #### [facility] Laboratory [address] [place] [address] Dr. Duong Alcaraz MCHC (RBC) [Mass/Vol] 34.1 g/dL Normal 29.9-35.2 [facility] Comment on above: Performed By: #### C BC #### [facility] Laboratory [address] [place] [address] Dr. Duong Alcaraz MCV (RBC) [Entitic vol] 92.3 fL Normal 81.0-99.0 [facility] Comment on above: Performed By: #### C BC #### [facility] Laboratory [address] [place] [address] Dr. Duong Alcaraz MONO # 0.5 103/ul Normal 0.3-0.8 [facility] Comment on above: Performed By: #### C BC #### [facility] Laboratory [address] [place] [address] Dr. Duong Alcaraz Monocytes/100 WBC (Bld) 11.5 % Normal 1.7-12.0 [facility] Comment on above: Performed By: #### C BC #### [facility] Laboratory [address] [place] [address] Dr. Duong Alcaraz NEUT # 2.9 103/ul Normal 1.4-6.5 [facility] Comment on above: Performed By: #### C BC #### [facility] Laboratory [address] [place] [address] Dr. Duong Alcaraz Neutrophils/100 WBC (Bld) 67.8 % Normal 43.0-75.0 [facility] Comment on above: Performed By: #### C BC #### [facility] Laboratory [address] [place] [address] Dr. Duong Alcaraz Platelet mean volume (Bld) [Entitic vol] 8.2 fL Critically low 9.5-13.5 [facility] Comment on above: Performed By: #### C BC #### [facility] Laboratory [address] [place] [address] Dr. Duong Alcaraz PLT 191 103/ul Normal 150-450 [facility] Comment on above: Performed By: #### C BC #### [facility] Laboratory [address] [place] [address] Dr. Duong Alcaraz RBC 4.01 106/ul Critically low 4.20-5.40 [facility] Comment on above: Performed By: #### C BC #### [facility] Laboratory [address] [place] [address] Dr. Duong Alcaraz WBC 4.3 103/ul Normal 4.0-11.0 [facility] Comment on above: Performed By: #### C BC #### [facility] Laboratory [address] [place] [address] Dr. Duong Alcaraz FREE THYROXINE INDEX T7on FTI 3.01 Normal 1.30-4.50 [facility] Comment on above: Performed By: #### B CSR TECHNICIAN, TSH, LIPID, CMP, T7 ####[facility] [address] [id number]. Duong Alcaraz T3U 35.0 % Normal 30.0-39.0 [facility] Comment on above: Performed By: #### B CSR TECHNICIAN, TSH, LIPID, CMP, T7 ####[facility] [address] [place], [place] [address]KdClovis Alcaraz T4 [Mass/Vol] 8.60 ug/dL Normal 4.80-13.90 [facility] Comment on above: Performed By: #### B CSR TECHNICIAN, TSH, LIPID, CMP, T7 ####[facility] [address] [id number] Alcaraz GLYCOHEMOGLOBIN A1Con 2021 ADA RECOMMENDATION SEE BELOW Normal [facility] Comment on above: Result Comment: ADA RECOMMENDED LIMIT 4.0 - 6.0 ADA THERAPEUTIC TARGET < 7.0 ACTION SUGGESTED > 7.0 Performed By: #### A 1C #### [facility] Laboratory [address] [address] [address] Duong Alcaraz Glucose [Mass/Vol] 108 mg/dL Normal [facility] [place] Comment on above: Performed By: #### A 1C #### [facility] Laboratory [address] [address] [address] Duong Alcaraz HbA1c (Bld) [Mass fraction] 5.4 % Normal 4.5-6.2 [facility] Comment on above: Performed By: #### A 1C #### [facility] Laboratory [address] [address] [address] Duong Alcaraz IRONon 10-04-2021 Iron [Mass/Vol] 93.0 ug/dL Normal 50.0-170.0 [facility] Comment on above: Performed By: #### I SHARRON ####[facility] [address] [address]Dr. Duong Alcaraz LIPID PROFILEon 10-04-2021 CHOL-HDL RATIO NORM SEE BELOW Normal [facility] Comment on above: Result Comment: 3.3 - 4.4 LOW RISK 4.4 - 7.1 AVERAGE RISK 7.1 - 11.0 MODERATE RISK >11.0 HIGH RISK Performed By: #### B CSR TECHNICIAN, TSH, LIPID, CMP, T7 ####[facility] [address] [id number]. Selenastevo Alcaraz Cholesterol [Mass/Vol] 182 mg/dL Normal <=200 [facility] Comment on above: Performed By: #### B CSR TECHNICIAN, TSH, LIPID, CMP, T7 ####[facility] [address] [phone]. Duong Alcaraz Cholesterol in HDL [Mass/Vol] 69 mg/dL Critically high 40-60 [facility] Comment on above: Performed By: #### B CSR TECHNICIAN, TSH, LIPID, CMP, T7 ####[facility] [address] [address]Dr. Duong Alcaraz Cholesterol in LDL [Mass/Vol] 107.6 mg/dL Normal [facility] Comment on above: Performed By: #### B CSR TECHNICIAN, TSH, LIPID, CMP, T7 ####[facility] [address] [id number]. Duong Alcaraz Cholesterol.total/C holesterol in HDL [Mass ratio] 2.6 {ratio} Normal [facility] Comment on above: Performed By: #### B CSR TECHNICIAN, TSH, LIPID, CMP, T7 ####[facility] [address] [phone]. Duong Alcaraz HDL NORMAL > or = 60 mg/dl - LO W CARDIOVASCULAR RISK <40 mg/dl - HIGH CARDIOVASCULAR RISK Normal [facility] Comment on above: Performed By: #### B CSR TECHNICIAN, TSH, LIPID, CMP, T7 ####[facility] [address] [phone]. Duong Alcaraz LDL CALC NORMAL SEE BELOW Normal [facility] Comment on above: Result Comment: <100 mg/dl OPTIMAL 100 - 129 mg/dl NEAR OR ABOVE OPTIMAL 130 - 159 mg/dl BORDERLINE HIGH 160 - 189 mg/dl HIGH >190 mg/dl VERY HIGH Performed By: #### B CSR TECHNICIAN, TSH, LIPID, CMP, T7 ####[facility] [address] [place], [place] [address]IuDr. Duong Alcaraz Triglyceride [Mass/Vol] 27 mg/dL Normal <=150 [facility] Comment on above: Performed By: #### B CSR TECHNICIAN, TSH, LIPID, CMP, T7 ####[facility] [address] [place], [place] [address]HlDr. Duong Alcaraz VLDL CALC 5.4 mg/dL Normal [facility] Comment on above: Performed By: #### B CSR TECHNICIAN, TSH, LIPID, CMP, T7 ####[facility] [address] [phone]. Duong Alcaraz PROF 14(COMP METB)on 022 Albumin [Mass/Vol] 3.5 g/dL Normal 3.4-5.0 [facility] Comment on above: Performed By: #### B CSR TECHNICIAN, TSH, LIPID, CMP, T7 #### [facility] Laboratory [address] [address] [address] Duong Alcaraz Albumin/Globulin [Mass ratio] 1.0 {ratio} Normal [facility] Comment on above: Performed By: #### B CSR TECHNICIAN, TSH, LIPID, CMP, T7 #### [facility] Laboratory [address] [address] [address] Duong Alcaraz ALP [Catalytic activity/Vol] 34 U/L Critically low 46-116 [facility] Comment on above: Performed By: #### B CSR TECHNICIAN, TSH, LIPID, CMP, T7 #### [facility] Laboratory [address] [address] [address] Duong Alcaraz ALT [Catalytic activity/Vol] 22 U/L Normal 14-59 [facility] Comment on above: Performed By: #### B CSR TECHNICIAN, TSH, LIPID, CMP, T7 #### [facility] Laboratory [address] [address] [address] Duong Alcaraz Anion gap [Moles/Vol] 12.3 mmol/L Normal [facility] Comment on above: Performed By: #### B CSR TECHNICIAN, TSH, LIPID, CMP, T7 #### [facility] Laboratory [address] [place] [address] Dr. Duong Alcaraz AST [Catalytic activity/Vol] 19 U/L Normal 15-37 [facility] Comment on above: Performed By: #### B CSR TECHNICIAN, TSH, LIPID, CMP, T7 #### [facility] Laboratory [address] [place] [address] Dr. Duong Alcaraz Bilirubin [Mass/Vol] 0.6 mg/dL Normal 0.2-1.0 [facility] Comment on above: Performed By: #### B CSR TECHNICIAN, TSH, LIPID, CMP, T7 #### [facility] Laboratory [address] [place] [address] Dr. Duong Alcaraz Calcium [Mass/Vol] 8.5 mg/dL Normal 8.5-10.1 [facility] Comment on above: Performed By: #### B CSR TECHNICIAN, TSH, LIPID, CMP, T7 #### [facility] [address] [place] [address] Dr. Duong Alcaraz Chloride [Moles/Vol] 101 mmol/L Normal 98-107 [facility] Comment on above: Performed By: #### B CSR TECHNICIAN, TSH, LIPID, CMP, T7 #### [facility] [address] [place] [address] Dr. Duong Alcaraz CO2 [Moles/Vol] 25.3 mmol/L Normal 21.0-32.0 [facility] Comment on above: Performed By: #### B CSR TECHNICIAN, TSH, LIPID, CMP, T7 #### [facility] [address] [place] [address] Dr. Duong Alcaraz Creatinine [Mass/Vol] 0.64 mg/dL Normal 0.55-1.02 [facility] Comment on above: Performed By: #### B CSR TECHNICIAN, TSH, LIPID, CMP, T7 #### [facility] [address] [place] [address] Dr. Duong Alcaraz EGFR-AF SERBIAN >60 Normal >=60 [facility] Comment on above: Performed By: #### B CSR TECHNICIAN, TSH, LIPID, CMP, T7 #### [facility] [address] [place] [address] Dr. Duong Alcaraz EGFR-NON AF SERBIAN >60 Normal >=60 [facility] Comment on above: Performed By: #### B CSR TECHNICIAN, TSH, LIPID, CMP, T7 #### [facility] [address] [place] [address] [address] Duong Alcaraz Globulin (S) [Mass/Vol] 3.4 g/dL Normal [facility] Comment on above: Performed By: #### B CSR TECHNICIAN, TSH, LIPID, CMP, T7 #### [facility] [address] [address] [address] Duong Alcaraz Glucose [Mass/Vol] 91 mg/dL Normal 74-106 [facility] Comment on above: Performed By: #### B CSR TECHNICIAN, TSH, LIPID, CMP, T7 #### [facility] [address] [place] [address] Dr. Duong Alcaraz Potassium [Moles/Vol] 4.6 mmol/L Normal 3.5-5.1 [facility] Comment on above: Performed By: #### B CSR TECHNICIAN, TSH, LIPID, CMP, T7 #### [facility] [address] [address] [address] Duong Alcaraz Protein [Mass/Vol] 6.9 g/dL Normal 6.4-8.2 The [place] Comment on above: Performed By: #### B CSR TECHNICIAN, TSH, LIPID, CMP, T7 #### [facility] [address] [place] [address] Dr. Duong Alcaraz Sodium [Moles/Vol] 134 mmol/L Critically low 136-145 [facility] Comment on above: Performed By: #### B CSR TECHNICIAN, TSH, LIPID, CMP, T7 #### [facility] [address] [address] [address] Duong Alcaraz Urea nitrogen [Mass/Vol] 11.0 mg/dL Normal 7.0-18.0 [facility] Comment on above: Performed By: #### B CSR TECHNICIAN, TSH, LIPID, CMP, T7 #### [facility] [address] [address] [address] Duong Alcaraz Urea nitrogen/Creatinine [Mass ratio] 17.2 mg/mg Normal [facility] Comment on above: Performed By: #### B CSR TECHNICIAN, TSH, LIPID, CMP, T7 #### [facility] [address] [place], [place] [address] Dr. Duong Alcaraz TSHon 10-04-2021 TSH 1.568 uIU/mL Normal 0.358-3.740 [facility] Comment on above: Performed By: #### B CSR TECHNICIAN, TSH, LIPID, CMP, T7 ####[facility] [id number] [place], [place] [address]QcDr. Duong Alcaraz TSH RANGE SEE BELOW Normal [facility] Comment on above: Result Comment: <0.3 4 UIU/ml HYPERTHYROID 0.34-5.60 UIU/ml EUTHYROID >5.60 UIU/ml HYPOTHYROID Performed By: #### B CSR TECHNICIAN, TSH, LIPID, CMP, T7 ####[facility] [id number] [place], [place] [address]EvDr. Duong Alcaraz MG MAMM SCREEN 3D ALONSO CADon 09-15-2021 MG MAMM SCREEN 3D ALONSO CAD Patient: GLENIS PEREZ Exam Date: 09/15/2021 : 1950 Gender:F Ordering : DR ANDIE FORDE . Admission #: [id number] Family : Order #: [id number] CLICK HERE TO VIEW EXAM RADIOLOGY REPORT [...] Treatments None Family Cancers None LOCATION: The [facility] BREAST COMPOSITION: Heterogeneously dense,which may obscure small [...] Ortega M.D. on 09/15/2021 at 15:08 Normal [facility] XR DEXA BONE DENSITYon 09-15 XR [...] by: GRANT ORTEGA Date: 2021-09-15 08:58 Normal [facility] Cardiovascular Lab Reporton 11-12-2020 Cardiovascular Lab Report [facility] Patient Name: Chris Glenis [facility] MR #: [id number] Physician: Doe Velez, Department of M.D. Medicine Service Date: 11/11/2020 Division of Birthdate: 1950 Cardiology Room #: [facility] [place] [address] Cardiovascular Laboratory Report CLINICAL PRESENTATION: The patient [...] left radial artery. Using ultrasound guidance, a 6-Togolese Terumo Glidesheath slender was placed in the left radial artery. The radial anti-vasospasm cocktail of nitroglycerin 200 mcg and verapamil 2.5 mg was administered through the sheath. All catheter exchanges were made over the Magic Torque guidewire. A 5-Togolese JR4 used to engage the right coronary artery. A 5-Togolese JL4 used to engage the left main [...] Velez M.D. Date Trans: 11/12/2020 05:34 A/viri [id number] cc: Siddharth Nolasco MD Dept Of Cardiology [address] [facility] [address] Andie Forde M.D. [address] [address] Parul Fitzpatrick CNP [address] [facility] Mailstop [address] [facility] [address] Normal [facility] Formson 08-26-2020 Forms [id number] .[id number]:127 Normal [facility] Physician Referralon 021 Physician Referral [id number] .[id number]:127 Normal [facility] Ambulatory Clinical Summaryo n 08-25-2020 Ambulatory Clinical Summary {[id number]}CD:[id number] Gaviota Griffin [facility] Patient Educationon 08-26-19 Patient Education Urinary [...] Document Reviewed: 05/18/2012 ExitCare? Patient Information ?2013 [employer]. [facility] Office/Clinic Noteon 08-25-2020 Urology Office/Clinic Note Chief Complaint New patient cystocele This 69-year-old female is being scheduled for cystocele repair by her wood box maker. Requested stent placement to aid in dissection [...] Urnls Dip Stick Auto w/o Microscopy POC [id number] Urology Procedure Order 2. UTI (urinary tract infection) (N39.0: Urinary tract infection, site not specified) UA today appears to be infected with positive nitrate. Will start pt. on Cipro 500mg bid, #6. Script sent to [facility] in [place]. Ordered: Urology Procedure Order 3. Microscopic hematuria (R31.29: Other microscopic hematuria) UA today - trace intact. Ordered: Urology Procedure Order Orders: ciprofloxacin, 500 mg = 1 tab(s), Oral, q12hr, X 3 day(s), # 6 tab(s), Refills(s) 0, Pharmacy: [facility] 1155, 160, cm, 08/25/20 11:31:00 EDT, Height/Length Dosing, 75.6, kg, 08/25/20 11:31:00 EDT, Weight Dosing I have reviewed the previous health record information and history for this pt. from Dr. Gonzalez. Follow-up With When Contact Information Carlos Alvarado MD, Dallin Malik, URO [address] [place] [id number]- Additional Instructions: Patient Education Urinary Tract Infection INegra (more content not included)... Normal [facility] Comment on above: Result Comment: Elec tronically Signed By: Dallin Gonzalez Jr., MD\.br\Date and Time Signed: 08/25/20 13:08 EDT\.br\Electronically Co-Signed By: Negra Mccullough MA\.br\Date and Time Co-Signed: 08/25/20 11:50 EDT Vital Signs Date Time Vital Sign Value Performing Clinician Facility 02-27-2023 10:15-0500 Body height 161.29 cm Tomás Wills Other [facility] 11-28-2022 11:00-0400 Body height 161.29 cm Tomás Wills Other [facility] 11-28-2022 11:00-0400 Body mass index (BMI) [Ratio] 27.55 kg/m2 Tomás Wills Other [facility] Other 11-28-2022 11:00-0400 Body weight 71.67 kg Tomás Wills Other [facility] Other 09-28-2022 13:15-0400 Body height 161.29 cm Tomás iWlls Other [facility] Other 09-28-2022 13:15-0400 Body mass index (BMI) [Ratio] 27.9 kg/m2 Tomás Wills Other [facility] Other 09-28-2022 13:15-0400 Body weight 72.58 kg Tomás Wills Other [facility] Other 04-22-2022 16:30-0500 Body height 161.29 cm Linda Hall Other [facility] Other 04-22-2022 16:30-0500 Body mass index (BMI) [Ratio] 27.02 kg/m2 Linda Hall Other [facility] Other 04-22-2022 16:30-0500 Body temperature 96.4 [degF] Linda Hall Other [facility] Other 04-22-2022 16:30-0500 Body weight 70.31 kg Linda Hall Other [facility] Other 04-22-2022 16:30-0500 Respiratory rate 18 /min Linda Hall Other [facility] Other 04-22-2022 16:30-0500 SaO2% (BldA) [Mass fraction] 98 % Linda Hall Other [facility] Other Encounters Encounter Date Encounter Type Care Provider Facility Start: 01-08-2024 End: 01-08-2024 ambulatory [facility] Start: 11-22-2023 End: 11-22-2023 ambulatory FRANK E RINKES Not Available Start: 07-13-2023 End: 07-13-2023 ambulatory FRANK E RINKES Not Available Start: 04-04-2023 End: 04-04-2023 ambulatory FRANK E RINKES Not Available Start: 02-27-2023 Office outpatient vi sit 15 minutes Tomás Wills [facility] Start: 02-27-2023 End: 02-27-2023 ambulatory Tomás Wills [facility] Other Start: 01-18-2023 End: 01-18-2023 ambulatory Tomás Wills Other [facility] Other Start: 01-18-2023 Telephone encounter Tomás CHRISTENSEN [facility] Start: 12-28-2022 End: 12-28-2022 ambulatory Tomás Wills Other [facility] Other Start: 12-28-2022 Telephone encounter Tomás CHRISTENSEN [facility] Start: 11-28-2022 End: 11-28-2022 ambulatory Tomás Wills Other [facility] Other Start: 11-28-2022 Postop follow up vis it related to original px Tomás Wills [facility] Start: 09-28-2022 End: 09-28-2022 ambulatory Tomás Wills Other [facility] Other Start: 09-28-2022 Postop follow up vis it related to original px Tomás Wills [facility] Start: 09-23-2022 End: 09-23-2022 ambulatory Tomás Wills Other [facility] Other Start: 09-23-2022 Telephone encounter Tomás Wills [facility] Start: 09-13-2022 End: 09-13-2022 ambulatory Andie Forde Facility:[facility] Start: 08-24-2022 End: 08-24-2022 ambulatory Tomás Wills Facility:[facility] Start: 08-19-2022 End: 08-20-[address] ANDIE FORDE . Facility:[facility] Start: 08-12-2022 End: 08-12-2022 ambulatory Tomás Wills Facility:[facility] Start: 07-04-2022 End: 07-05-[address] ANDIE FORDE . Facility:[facility] Start: 06-22-2022 End: 06-23-[address] ANDIE FORDE . Facility:[facility] Start: 04-22-2022 End: 04-22-2022 ambulatory Linda Hall Other [facility] Other Start: 04-22-2022 Office outpatient ne w [...] Start: 11-11-2020 End: 11-12-2020 ambulatory DOE VELEZ Facility:[facility] Payers Date Payer Category Payer Self-pay 1961 Medicare [id number] 1961 Unknown [id number] 1950 Unknown [id number] 2.16.8 40.1.286847.3.579.2.647 1950 Unknown [id number] 2.16.84 0.1.452959.3.579.2.593 1950 Unknown [id number] 2.16.84 0.1.301701.3.579.2.593 1950 Unknown [id number] 2.16.84 0.1.225826.3.579.2.593 1950 Unknown [id number] 2.16.84 0.1.444455.3.579.2.593 1950 Unknown [id number] 2.16.84 0.1.182713.3.579.2.593 1950 Unknown [id number] 2.16.84 0.1.844237.3.579.2.593 1950 Unknown [id number] 2.16.84 0.1.125735.3.579.2.593 1950 Unknown [id number] 2.16.84 0.1.152807.3.579.2.593 1950 Unknown [id number] 2.16.84 0.1.906046.3.579.2.593 1950 Unknown [id number] 2.16.84 0.1.065149.3.579.2.593 1950 Unknown [id number] 2.16.84 0.1.772974.3.579.2.593 1950 Unknown [id number] 2.16.84 0.1.321601.3.579.2.593 1950 Unknown [id number] 2.16.84 0.1.032664.3.579.2.1259 1950 Unknown [id number] 2.16.84 0.1.566630.3.579.2.1259 1950 Unknown [id number] 2.16.840 .1.226247.3.579.2.1259 Unknown [id number] 2.1 6.840.1.170149.19 Unknown [id number] 2.16.8 40.1.281727.3.579.2.531 Unknown [id number] 2.16.8 40.1.918664.3.579.2.531 Unknown [id number] 2.16.8 40.1.266090.3.579.2.531 Unknown [id number] 2.16.8 40.1.664922.3.579.2.531 Social History Date Type Detail Facility Sex Assigned At [facility] Other Clinical Notes 04-22-2022 to 01-08-2024 Note Date & Type Note Facility 01-08-2024 Note Continue carvedilol currently remains stable. [facility] 01-08-2024 Note Currently no concern ing symptoms and patient denies any palpitations. Continue carvedilol 12.5 mg twice daily. [facility] 01-08-2024 Note Hypertension is well -controlled currently. Continue carvedilol and hydrochlorothiazide Renal function and electrolytes are normal She does admit to occasional lightheadedness with low blood pressure denies any syncope or near syncope. Admits that typical days she does not hydrate well enough and likes to drink ice tea therefore we discussed adequate hydration. [facility] 01-08-2024 Note UTP CARDIOLOGY PROGR ESS [...] and likes t (more content not included)... [facility] 01-08-2024 Note Pt here for a [...] All other systems reviewed and are negative. [facility] 02-27-2023 Evaluation note Encounter Date Diagnosis [...] from surgery. Continue motion and strengthening exercises chcf. Activity as tolerated. Call with questions/anuradha rns. Provided AAOS hand out on hip conditioning and IT band exercises. [facility] Other 09-06-2023 Evaluation note* Encounter Date Diagnosis Assessment Notes Treatment Notes Treatment Clinical Notes Dec, History of total left knee replacement (ICD-10 - Z96.652) [facility] 08-07-2023 Evaluation note* Encounter Date Diagnosis [...] total left knee replacement (ICD-10 - Z96.652) [facility] Other 06-07-2023 Evaluation note* Encounter Date Diagnosis [...] meniscus of left knee (ICD-10 - M23.307) [facility] 06-02-2023 Evaluation note* Encounter Date Diagnosis Assessment Notes Treatment Notes Treatment Clinical Notes Sep, Primary osteoarthritis of left knee (ICD-10 - M17.12) [facility] 03-01-2023 NotePROCEDURE: XR KNEE LT 4V or > COMPARISON: 04/09/2021 HISTORY: Pain of left knee joint FINDINGS: BONES:No acute fracture or dislocation. 7 mm osteochondral injury medial femoral condyle. Tricompartmental osteoarthropathy most significant in the medial compartment SOFT TISSUES:Negative. No visible soft tissue swelling. EFFUSION:None visible. OTHER: Negative. IMPRESSION: Osteochondral injury medial femoral condyle Electronically authenticated by: LISET MEZA Date: 2022-06-22 17:[address] [place], [place] [address]-30-2022 Evaluation note* Encounter Date Diagnosis Assessment Notes [...] treatment plan Mar, Headache (ICD-10 - R51.9) [facility] Other History general Narrative - Reported* Type Description Date Medical History hx of hypertension Surgical History tubiligation Surgical History [place] [facility] Hospitalization History vaginal child x 3 [facility] Other History general Narrative - Reported* Type Description Date Medical History hx of hypertension Medical History PVC Medical History osteoarthritis of the left knee Surgical History tubiligation Surgical History [place] [facility] Hospitalization History vaginal child x 3 [facility] Other History general Narrative - Reported* Type Description Date Medical History hx of hypertension Medical History PVC Medical History osteoarthritis of the left knee Surgical History tubiligation Surgical History [place] [employer] Surgical History left total knee arthroplasty Hospitalization History vaginal child x 3 [facility] [facility] Other Summary Purpose Family History No Family [...] section and content) DATE CREATED AUTHOR [facility]/24/2020 [place] [facility] DATE CREATED AUTHOR AUTHOR'S ORGANIZ ATION 11/18/2020 [facility] DATE CREATED AUTHOR AUTHOR'S ORGANIZ ATION 08/26/2022 [facility] DATE CREATED AUTHOR AUTHOR'S ORGANIZ ATION 05/13/2023 [facility] DATE CREATED AUTHOR AUTHOR'S ORGANIZ ATION 11/25/2023 [facility] DATE CREATED AUTHOR AUTHOR'S ORGANIZ ATION 01/09/2024 [facility] REASON FOR VISIT (unrecogniz ed section and [...] BE BASED ON THE PRIMARY CLINICAL RECORDS. [employer] provides no warranty or guarantee of the accuracy or completeness of information in this document.
== END 2024-02-16 09:09 | disposition home or self-care (01) ==
PROVIDERS: PCP Family Medicine
DX: N39.0 Urinary tract infection, site not specified (principal)
CPT/HCPCS: 74178; Q9967

== ENCOUNTER 2024-03-11 15:39 | Outpatient (OUT) | payer MEDICARE, OTHER, SELFPAY ==
--- OUTSIDE RECORDS SUMMARY | 2024-03-11 15:53 | XMS_ITS | CCD ---
Author Organization [facility] Care Team Providers Care Orchid Superintendent Name Role Phone DOE VELEZ Attending Unavailable [...] Unavailable HOY ., DR CHAVES Consulting Unavailable SPRING GLEN, DR LISET Cuadra Consulting Unavailable HOY ., [...] (antibiotic) (1 source) Penicillin Drug Allergy 1 [facility] Repository Tetracyclines (antibiotic) (1 source) Tetracyclines Drug Allergy 1 [facility] Repository (7 sources) Penicillin Drug Allergy Unknown [employer] Other (8 sources) Tetracycline; Translations: [TETRACYCLINE] Drug Allergy 2 [facility] Repository (2 sources) Penicillins; Translations: [PENICILLINS] Drug allergy (disorder) 4 [facility] Repository (1 source) Tetracycline Drug Allergy 4 [facility] Repository (1 source) Penicillins Drug allergy (disorder) 3 [facility] Repository (1 source) Tetracycline Drug Allergy 3 [facility] Repository Medications Current Medications Medication Drug Class(es) [...] Not-Taking Start: 09-09-2022 take 1 capsule by [facility] every twelve hours Clindamycin HCl 300 [...] Range Facility Office Visiton 01-08-2024 Follow-up visit [id number] Glenis Perez 1950 F Date Provider Department Center 01/08/2024 [facility]-TATIANNA ARANA Family History Problem Relation Age of Onset Heart attack Mother Coronary artery disease Mother Other Brother Family Status - Relation Status Age at Mother Brother Level of Service:18931 NM OFFICE/OUTPATIENT ESTABLISHED SF MDM 10 MIN Normal [facility] XR knee LT 2Von 02-27-2023 XR knee LT 2V [facility] [address] [place] [address] XRay Report Signed Patient: Glenis Perez MR#: [id number] 42 : 1950 Acct:[id number] Age/Sex: 72 / F ADM Date: 02/27/23 [place] [facility] [place] Type: [facility] Attending Dr: Tomás Wills DO [...] Raúl Woo M.D.02/27/2023 3:08 PM Dictation Location: [place] [address] Transcribed By: [facility] 02/27/23 1508 Dictated By: Raúl Woo DO 02/27/23 1508 Signed By: 02/27/23 1508 Normal [facility] XR knee LT 2V [facility] [employer] Other XR knee LT 2V [facility] [employer] Other XR knee LT 2V [address] [facility] [employer] Other XR knee LT 2[place] [address] [facility] [employer] Other XR knee LT 2V XRay Report [employer] Other XR knee LT 2V Signed [employer] Other XR knee LT 2V Patient: Glenis Perez MR#: [id number] [facility] [employer] Other XR knee LT 2V 42 [facility] [employer] Other XR knee LT 2V : 1950 Acct:[id number] [employer] Other XR knee LT 2V Age/Sex: 72 / F ADM Date: 02/27/23 [employer] Other XR knee LT 2V Loc: [place] Room: Type : [facility] [employer] Other XR knee LT 2V Attending Dr: Tomás Wills DO [employer] Other XR knee LT 2V Copies to: Tomás Wills DO [employer] Other XR knee LT 2V Ordering Provider: Tomás Wills DO [employer] Other XR knee LT 2V Date of Service: 02/27/23 [employer] Other XR knee LT 2V XR/XR knee LT 2V: Status post total left knee replacement [employer] Other XR knee LT 2V 2 views LEFT knee plain film [employer] Other XR knee LT 2V COMPARISON: 09/13/22 N [employer] Other XR knee LT 2V HISTORY: Status post LEFT total knee arthroplasty [employer] Other XR knee LT 2V ACUTE FINDINGS: None N [employer] Other XR knee LT 2V DEGENERATIVE CHANGE: Unremarkable [employer] Other XR knee LT 2V SOFT TISSUE FINDINGS : Unremarkable [employer] Other XR knee LT 2V JOINT EFFUSION: None N [employer] Other XR knee LT 2V POSTOP CHANGES: Stable hardware [employer] Other XR knee LT 2V BONE MINERALIZATION: Adequate [employer] Other XR knee LT 2V XR/XR knee LT 2V [employer] Other XR knee LT 2V IMPRESSION: Uncomplicated LEFT knee arthroplasty [employer] Other XR knee LT 2V Impression dictated by: Raúl Woo M.D.02/27/2023 3:08 PM [employer] Other XR knee LT 2V Dictation Location: [place] [address] [employer] Other XR knee LT 2V Transcribed By: PWS 02/27/23 [facility] [employer] Other XR knee LT 2V Dictated By: Raúl Woo DO 02/27/23 [facility] [employer] Other XR knee LT 2V Signed By: [employer] Other XR knee LT 2V 02/27/23 [facility] [employer] Other [place] 09-13-2022 L - -------- Specimen: [id number] Received: 09/13/22 Status: LUZ Lynn Num: [id number] Spec Type: Surgical Subm Dr: Tomás Wills DO Tissues: A Joint/Knee (LT KNEE) Procedures: Gross/Micro L4, Decalcification -------- Age/ Patient Sex Location Account Attending Physician -------- Glenis Perez Ann 71/F [place] [id number] Tomás Wills DO -------- SPEC NUM: [id number] RECD: 09/13/22 STATUS: ULZ LYNN NUM: [id number] SETH: 09/13/22- [facility] DR: Tomás Wills DO ENTERED: 09/13/22 [facility] DR: ANDREW TYPE: Surgical DEPT: S ORDERED: [...] is taken. Gross examination only. CPT Codes 82173 Gross Photo -------- -------- Specimen: [id number] Received: 09/13/22 Status: LUZ Rogelzaina Num: [id number] Spec Type: Surgical Subm Dr: Tomás Wills DO Tissues: A Joint/Knee (LT KNEE) Procedures: Gross/Micro L4, Decalcification -------- Patient: Glenis Perez Ann [id number] (Continued) -------- Signed (signature on file) Kendra Guzman MD 09/14/22 1033 Normal [facility] XR knee LT 2Von 09-13-2022 XR knee LT 2V [address] [address] XRay Report Signed Patient: Glenis Perez MR#: [id number] 42 : 1950 Acct:[id number] Age/Sex: 71 / F ADM Date: 09/13/22 Loc: [place] Room: Type: [facility] Attending Dr: Tomás Wills DO [...] Sameer Guy M.D.09/13/2022 3:01 PM Dictation Location: [place] [address] Transcribed By: [facility] 09/13/22 1501 Dictated By: Sameer Guy II, MD 09/13/22 1500 Signed By: 09/13/22 1501 Normal [facility] PROF CHEM 8 (BAS METB)on Anion gap [Moles/Vol] 10.3 mmol/L Normal [facility] Comment on above: Performed By: #### B MP #### [facility] [address] [place] [address] [address] Duong Alcaraz Calcium [Mass/Vol] 9.3 mg/dL Normal 8.5-10.1 [facility] Comment on above: Performed By: #### B MP #### [facility] [address] [place] [address] [address] Duong Alcaraz Chloride [Moles/Vol] 95 mmol/L Critically low 98-107 [facility] Comment on above: Performed By: #### B MP #### [facility] [address] [place] [address] [address] Duong Alcaraz CO2 [Moles/Vol] 30.6 mmol/L Normal 21.0-32.0 [facility] Comment on above: Performed By: #### B MP #### [facility] [address] [place] [address] [address] Duong Alcaraz Creatinine [Mass/Vol] 0.69 mg/dL Normal 0.55-1.02 [facility] Comment on above: Performed By: #### B MP #### [facility] [address] [place] [address] [address] Duong Alcaraz EGFR-AF LUXEMBOURGER >60 Normal >=60 [facility] Comment on above: Performed By: #### B MP #### [facility] [address] [place] [address] [address] Duong Alcaraz EGFR-NON AF LUXEMBOURGER >60 Normal >=60 [facility] Comment on above: Performed By: #### B MP #### [facility] [address] [place] [address] [address] Duong Alcaraz Glucose [Mass/Vol] 83 mg/dL Normal 74-106 [facility] Comment on above: Performed By: #### B MP #### [facility] [address] [place] [address] [address] Duong Alcaraz Potassium [Moles/Vol] 3.9 mmol/L Normal 3.5-5.1 [facility] Comment on above: Performed By: #### B MP #### [facility] [address] [place] [address] [address] Duong Alcaraz Sodium [Moles/Vol] 132 mmol/L Critically low 136-145 [facility] Comment on above: Performed By: #### B MP #### [facility] [address] [place] [address] [address] Duong Alcaraz Urea nitrogen [Mass/Vol] 12.0 mg/dL Normal 7.0-18.0 [facility] Comment on above: Performed By: #### B MP #### [facility] [address] [place] [address] Dr. Duong Alcaraz Urea nitrogen/Creatinine [Mass ratio] 17.4 mg/mg Normal [facility] Comment on above: Performed By: #### B MP #### [facility] [address] [place] [address] [address] Duong Alcaraz CMP with reflex to A1Con Albumin [Mass/Vol] 3.9 g/dL Normal 3.5-5.7 [facility] Comment on above: Performed By: #### C BC, CMP wRFX A1C #### [address] Albumin/Globulin [Mass ratio] 1.5 {ratio} Normal [facility] Comment on above: Performed By: #### C BC, CMP wRFX A1C #### [address] ALP [Catalytic activity/Vol] 34 U/L Normal 34-104 [facility] Comment on above: Result Comment: PERF ORMED BY: [place] [address] PATHOLOGIST PULVI MIXER OPERATOR YAMILETH PERRY M.D. Performed By: #### C BC, CMP wRFX A1C #### [address] ALT [Catalytic activity/Vol] 14 U/L Normal 7-52 [facility] Comment on above: Performed By: #### C BC, CMP wRFX A1C #### [address] Anion gap [Moles/Vol] 11.1 mmol/L Normal 6.0-15.0 [facility] Comment on above: Performed By: #### C BC, CMP wRFX A1C #### [address] AST [Catalytic activity/Vol] 18 U/L Normal 13-39 [facility] Comment on above: Performed By: #### C BC, CMP wRFX A1C #### [place] [address] [place] Bilirubin [Mass/Vol] 0.6 mg/dL Normal 0.3-1.0 [facility] Comment on above: Performed By: #### C BC, CMP wRFX A1C #### [place] [address] [place] Calcium [Mass/Vol] 8.4 mg/dL Low 8.6-10.3 [facility] Comment on above: Performed By: #### C BC, CMP wRFX A1C #### [facility] [address] [place] [address] Chloride [Moles/Vol] 94 mmol/L Low 98-107 [facility] Comment on above: Performed By: #### C BC, CMP wRFX A1C #### [facility] [address] [place] [address] CO2 [Moles/Vol] 28.0 mmol/L Normal 21.0-31.0 [facility] Comment on above: Performed By: #### C BC, CMP wRFX A1C #### [address] Creatinine [Mass/Vol] 0.68 mg/dL Normal 0.60-1.20 [facility] Comment on above: Performed By: #### C BC, CMP wRFX A1C #### [place] [address] [place] GFR/1.73 sq M.predicted MDRD (S/P/Bld) [Vol rate/Area] mL/min/{1.73_m2} [facility] Comment on above: Performed By: #### C BC, CMP wRFX A1C #### [address] Globulin (S) [Mass/Vol] 2.6 g/dL Normal [facility] Comment on above: Performed By: #### C BC, CMP wRFX A1C #### [place] [address] [place] Glucose [Mass/Vol] 88 mg/dL Normal 70-100 [facility] Comment on above: Performed By: #### C BC, CMP wRFX A1C #### [facility] [address] [place] [address] Potassium [Moles/Vol] 4.1 mmol/L Normal 3.5-5.1 [facility] Comment on above: Performed By: #### C BC, CMP wRFX A1C #### [facility] [address] Protein [Mass/Vol] 6.5 g/dL Normal 6.4-8.9 [facility] Comment on above: Performed By: #### C BC, CMP wRFX A1C #### [facility] [address] Sodium [Moles/Vol] 129 mmol/L Low 136-145 [facility] Comment on above: Performed By: #### C BC, CMP wRFX A1C #### [facility] [address] Urea nitrogen [Mass/Vol] 19 mg/dL Normal 7-25 [facility] Comment on above: Performed By: #### C BC, CMP wRFX A1C #### [facility] [address] Complete Blood Count Auto Di ffon 08-12-2022 Basophils (Bld) [#/Vol] 0.1 10*3/uL Normal 0.0-0.2 [facility] Comment on above: Result Comment: PERF ORMED BY: [place] [address] PATHOLOGIST PULVI MIXER OPERATOR YAMILETH PERRY M.D. Performed By: #### C BC, CMP wRFX A1C #### [place] [address] [place] Basophils/100 WBC (Bld) 1.3 % Normal . [facility] Comment on above: Performed By: #### C BC, CMP wRFX A1C #### [facility] [address] [place] [address] [place] Eosinophils (Bld) [#/Vol] 0.1 10*3/uL Normal 0.0-0.45 [facility] Comment on above: Performed By: #### C BC, CMP wRFX A1C #### [facility] [address] [place] [address] [place] Eosinophils/100 WBC (Bld) 1.6 % Normal . [facility] Comment on above: Performed By: #### C BC, CMP wRFX A1C #### [facility] [address] Erythrocyte distribution width (RBC) [Ratio] 13.6 % Normal 11.9-15.3 [facility] Comment on above: Performed By: #### C BC, CMP wRFX A1C #### [address] Hematocrit (Bld) [Volume fraction] 35.9 % Normal 34.0-46.4 [facility] Comment on above: Performed By: #### C BC, CMP wRFX A1C #### [address] Hemoglobin (Bld) [Mass/Vol] 12.6 g/dL Normal 11.8-15.4 [facility] Comment on above: Performed By: #### C BC, CMP wRFX A1C #### [address] Lymphocytes (Bld) [#/Vol] 0.7 10*3/uL Low 1.00-4.8 [facility] Comment on above: Performed By: #### C BC, CMP wRFX A1C #### [address] Lymphocytes/100 WBC (Bld) 14.6 % Normal . [facility] Comment on above: Performed By: #### C BC, CMP wRFX A1C #### [address] MCH (RBC) [Entitic mass] 31.8 pg Normal 24.7-34.3 [facility] Comment on above: Performed By: #### C BC, CMP wRFX A1C #### [address] MCV (RBC) [Entitic vol] 90.7 fL Normal 80-100 [facility] Comment on above: Performed By: #### C BC, CMP wRFX A1C #### [address] Mean Corpuscular HGB Conc 35.0 g/dL Normal 32.0-35.0 [facility] Comment on above: Performed By: #### C BC, CMP wRFX A1C #### [facility] [address] [place] [address] Monocytes (Bld) [#/Vol] 0.5 10*3/uL Normal 0.0-0.8 [facility] Comment on above: Performed By: #### C BC, CMP wRFX A1C #### [facility] [address] [place] [address] Monocytes/100 WBC (Bld) 10.4 % Normal . [facility] Comment on above: Performed By: #### C BC, CMP wRFX A1C #### [facility] [address] [place] [address] Neutrophils (Bld) [#/Vol] 3.7 10*3/uL Normal 1.8-7.7 [facility] Comment on above: Performed By: #### C BC, CMP wRFX A1C #### [address] Neutrophils/100 WBC (Bld) 72.1 % Normal . [facility] Comment on above: Performed By: #### C BC, CMP wRFX A1C #### [address] NRBC% 0.0 /100{WBC} Normal 0-0.5 [facility] Comment on above: Performed By: #### C BC, CMP wRFX A1C #### [facility] [address] [place] [address] Platelet mean volume (Bld) [Entitic vol] 6.2 fL Low 6.3-10.7 [facility] Comment on above: Performed By: #### C BC, CMP wRFX A1C #### [facility] [address] [place] [address] Platelets (Bld) [#/Vol] 241 10*3/uL Normal 150-450 [facility] Comment on above: Performed By: #### C BC, CMP wRFX A1C #### [facility] [address] [place] [address] [place] RBC (Bld) [#/Vol] 3.96 10*6/uL Normal 3.60-5.00 [facility] Comment on above: Performed By: #### C BC, CMP wRFX A1C #### [facility] [address] WBC (Bld) [#/Vol] 5.1 10*3/uL Normal 3.8-11.6 [facility] Comment on above: Performed By: #### C BC, CMP wRFX A1C #### [facility] [address] [place] [address] [place] Dipstick and Microscopicon 0 08-12-2022 Appearance (U) Clear Normal Clear [facility] Comment on above: Order Comment: Name Collection Type:: Clean-Voided Midstream Performed By: #### A DDONUAPLUS #### [place] [address] [place] Bacteria,Urine None Seen Normal None Seen [facility] Comment on above: Order Comment: Name Collection Type:: Clean-Voided Midstream Performed By: #### A DDONUAPLUS #### [place] [address] [place] Bilirubin,Urine Negative Normal Negative [facility] Comment on above: Order Comment: Name Collection Type:: Clean-Voided Midstream Performed By: #### A DDONUAPLUS #### [facility] [address] [place] [address] [place] Color (U) Yellow Normal Yellow [facility] Comment on above: Order Comment: Name Collection Type:: Clean-Voided Midstream Performed By: #### A DDONUAPLUS #### [facility] [address] [place] [address] [place] Glucose Ql (U) Normal Normal Normal [facility] Comment on above: Order Comment: Name Collection Type:: Clean-Voided Midstream Performed By: #### A DDONUAPLUS #### [facility] [address] [place] [address] [place] Hyaline Casts,Urine None Seen Normal 0-8 [facility] Comment on above: Order Comment: Name Collection Type:: Clean-Voided Midstream Result Comment: PERF ORMED BY: [place] [address] PATHOLOGIST PULVI MIXER OPERATOR YAMILETH PERRY M.D. Performed By: #### A DDONUAPLUS #### [facility] [address] [place] [address] Ketones Ql (U) Negative Normal Negative [facility] Comment on above: Order Comment: Name Collection Type:: Clean-Voided Midstream Performed By: #### A DDONUAPLUS #### [address] Leukocyte esterase Test strip Ql (U) 3+ High Negative [facility] Comment on above: Order Comment: Name Collection Type:: Clean-Voided Midstream Performed By: #### A DDONUAPLUS #### [place] [address] [place] Nitrite,Urine Negative Normal Negative [facility] Comment on above: Order Comment: Name Collection Type:: Clean-Voided Midstream Performed By: #### A DDONUAPLUS #### [place] [address] [place] Occult Blood,Urine Negative Normal Negative [facility] Comment on above: Order Comment: Name Collection Type:: Clean-Voided Midstream Result Comment: PERF ORMED BY: [place] [address] PATHOLOGIST PULVI MIXER OPERATOR YAMILETH PERRY M.D. Performed By: #### A DDONUAPLUS #### [place] [address] [place] pH (U) 7.0 [pH] Normal 5.0-9.0 [facility] Comment on above: Order Comment: Name Collection Type:: Clean-Voided Midstream Performed By: #### A DDONUAPLUS #### [place] [address] [place] Protein,Urine Negative Normal Negative [facility] Comment on above: Order Comment: Name Collection Type:: Clean-Voided Midstream Performed By: #### A DDONUAPLUS #### [address] RBC LM.HPF (Urine sed) [#/Area] 0 /[HPF] Normal 0-4 [facility] Comment on above: Order Comment: Name Collection Type:: Clean-Voided Midstream Performed By: #### A DDONUAPLUS #### [address] Specificy [place],Urine 1.007 Normal 1.001-1.030 [facility] Comment on above: Order Comment: Name Collection Type:: Clean-Voided Midstream Performed By: #### A DDONUAPLUS #### [address] Squamous Epithelial Cell,Urine None Seen Normal 0-2 [facility] Comment on above: Order Comment: Name Collection Type:: Clean-Voided Midstream Performed By: #### A DDONUAPLUS #### [address] Urobilinogen,Urine Normal Normal Normal [facility] Comment on above: Order Comment: Name Collection Type:: Clean-Voided Midstream Performed By: #### A DDONUAPLUS #### [address] WBC,Urine 3-4 Normal 0-4 [facility] Comment on above: Order Comment: Name Collection Type:: Clean-Voided Midstream Performed By: #### A DDONUAPLUS #### [address] MRI KNEE LT WO CONon 07-04- [...] by: GRANT ORTEGA Date: 2022-07-04 12:13 Normal [facility] COVID/FLU/RSV RT-PCRon 04-22 SARS-CoV-2 (COVID-19) RNA CASH+probe Ql (Unsp spec) Negative [employer] Other COVID/FLU/RSV RT-PCR Negative [employer] Other CULTURE URINEon 04-14-2022 CULTURE URINE Isolate [...] F Trimethoprim/Sulfamet hoxazole <=20 S F Normal [facility] Comment on above: Performed By: #### U RCX ####[facility] [address] [place] [address]Dr. Duong Alcaraz CALCIUMon 04-01-2022 Calcium [Mass/Vol] 9.4 mg/dL Normal 8.5-10.1 [facility] Comment on above: Performed By: #### C A, CREA ####[facility] [address] [place] [address]Dr. Duong Alcaraz CREATININEon 04-01-2022 Creatinine [Mass/Vol] 0.73 mg/dL Normal 0.55-1.02 [facility] Comment on above: Performed By: #### C A, CREA ####[facility] [address] [place] [address]Dr. Duong Alcaraz EGFR-AF LUXEMBOURGER >60 Normal >=60 The [facility] Comment on above: Performed By: #### C A, CREA ####[facility] [address] [place] [address]Dr. Duong Alcaraz EGFR-NON AF LUXEMBOURGER >60 Normal >=60 [facility] Comment on above: Performed By: #### C A, CREA ####[facility] [address] [place] [address]Dr. Duong Alcaraz PROF CHEM 8 (BAS METB)on Anion gap [Moles/Vol] 12.5 mmol/L Normal [facility] Comment on above: Performed By: #### B MP #### [facility] [address] [place] [address] [address] Duong Alcaraz Calcium [Mass/Vol] 8.8 mg/dL Normal 8.5-10.[address] [facility] Comment on above: Performed By: #### B MP #### [facility] [address] [place] [address] [address] Duong Alcaraz Chloride [Moles/Vol] 95 mmol/L Critically low 98-107 [facility] Comment on above: Performed By: #### B MP #### [facility] [address] [place] [place] [address] [address] Duong Alcaraz CO2 [Moles/Vol] 27.3 mmol/L Normal 21.0-32.0 [facility] Comment on above: Performed By: #### B MP #### [facility] [address] [place] [place] [address] [address] Duong Alcaraz Creatinine [Mass/Vol] 0.68 mg/dL Normal 0.55-1.02 [facility] Comment on above: Performed By: #### B MP #### [facility] [address] [place] [address] [address] Duong Alcaraz EGFR-AF LUXEMBOURGER >60 Normal >=60 [facility] Comment on above: Performed By: #### B MP #### [facility] [address] [address] [address] Duong Alcaraz EGFR-NON AF LUXEMBOURGER >60 Normal >=60 [facility] Comment on above: Performed By: #### B MP #### [facility] [address] [place] [address] [address] Duong Alcaraz Glucose [Mass/Vol] 98 mg/dL Normal 74-106 [facility] Comment on above: Performed By: #### B MP #### [facility] [address] [place] [address] [address] Duong Alcaraz Potassium [Moles/Vol] 3.8 mmol/L Normal 3.5-5.1 [facility] Comment on above: Performed By: #### B MP #### [facility] [address] [place] [address] [address] Duong Alcaraz Sodium [Moles/Vol] 131 mmol/L Critically low 136-145 [facility] Comment on above: Performed By: #### B MP #### [facility] [address] [place] [address] [address] Duong Alcaraz Urea nitrogen [Mass/Vol] 14.0 mg/dL Normal 7.0-18.0 [facility] Comment on above: Performed By: #### B MP #### [facility] [address] [place] [address] [address] Duong Alcaraz Urea nitrogen/Creatinine [Mass ratio] 20.6 mg/mg Normal [facility] Comment on above: Performed By: #### B MP #### [facility] [address] [place] [address] [address] Duong Alcaraz BNPon 11-12-2021 Natriuretic peptide B (Bld) [Mass/Vol] 151.0 pg/mL Normal <=900.0 [facility] Comment on above: Performed By: #### C MP, BNP #### [facility] [address] [place] [address] [address] Duong Alcaraz CBC AUTO DIFFon 11-12-2021 BASO # 0.1 103/ul Normal 0.0-0.1 [facility] Comment on above: Performed By: #### C BC ####[facility] [address] [place] [address]DrClovis Alcaraz Basophils/100 WBC (Bld) 1.3 % Normal 0.2-2.0 [facility] Comment on above: Performed By: #### C BC ####[facility] [address] [place] [address]DrClovis Alcaraz EO # 0.2 103/ul Normal 0.0-0.7 [facility] Comment on above: Performed By: #### C BC ####[facility] [address] [place] [address]Dr. Duong Alcaraz Eosinophils/100 WBC (Bld) 4.4 % Normal 0.9-7.0 [facility] Comment on above: Performed By: #### C BC ####[facility] [address] [place] [address]DrClovis Alcaraz Erythrocyte distribution width (RBC) [Ratio] 12.3 % Normal 11.0-15.0 [facility] Comment on above: Performed By: #### C BC ####[facility] [address] [place] [address]DrClovis Alcaraz Hematocrit (Bld) [Volume fraction] 36.4 % Normal 36.0-48.0 [facility] Comment on above: Performed By: #### C BC ####[facility] [address] [place] [address]Dr. Duong Alcaraz Hemoglobin (Bld) [Mass/Vol] 12.8 g/dL Normal 12.0-16.0 [facility] Comment on above: Performed By: #### C BC ####[facility] [address] [place] [address]Dr. Duong Alcaraz IG # 0.02 10e3/ul Normal 0.00-0.03 [facility] Comment on above: Performed By: #### C BC ####[facility] [address] [place] [address]Dr. Duong Kieran IG % 0.5 % Normal 0.0-0.5 [facility] Comment on above: Performed By: #### C BC ####[facility] [address] [place], [place] [address]Dr. Selenastevo Kieran LYMPH # 0.8 103/ul Critically low 1.2-3.8 [facility] Comment on above: Performed By: #### C BC ####[facility] [address] [place], [place] [address]Dr. Duong Kieran Lymphocytes/100 WBC (Bld) 19.5 % Critically low 20.5-60.0 [facility] Comment on above: Performed By: #### C BC ####[facility] [address] [place], [place] [address]Dr. Selenastevo Alcaraz MANUAL DIFF REQ NO Normal [facility] Comment on above: Performed By: #### C BC ####[facility] Yzy[address] [place], [place] [address]Dr. Duong Kieran MCH (RBC) [Entitic mass] 31.7 pg Normal 26.7-34.0 [facility] Comment on above: Performed By: #### C BC ####[facility] [address] [place] [address]Dr. Selenastevo Alcaraz MCHC (RBC) [Mass/Vol] 35.2 g/dL Normal 29.9-35.2 [facility] Comment on above: Performed By: #### C BC ####[facility] [address] [place] [id number]. Duong Alcaraz MCV (RBC) [Entitic vol] 90.1 fL Normal 81.0-99.0 [facility] Comment on above: Performed By: #### C BC ####[facility] [address] [place] [address]Dr. Duong Alcaraz MONO # 0.5 103/ul Normal 0.3-0.8 [facility] Comment on above: Performed By: #### C BC ####[facility] [address] [place] [address]Dr. Duong Kieran Monocytes/100 WBC (Bld) 12.3 % Critically high 1.7-12.0 [facility] Comment on above: Performed By: #### C BC ####[facility] [address] [place], [place] [address]Dr. Duong Alcaraz NEUT # 2.4 103/ul Normal 1.4-6.5 [facility] Comment on above: Performed By: #### C BC ####[facility] [address] [place], [place] [address]Dr. Duong Kieran Neutrophils/100 WBC (Bld) 62.0 % Normal 43.0-75.0 [facility] Comment on above: Performed By: #### C BC ####[facility] [address] [place], [place] [address]Dr. Duong Kieran Platelet mean volume (Bld) [Entitic vol] 7.8 fL Critically low 9.5-13.5 [facility] Comment on above: Performed By: #### C BC ####[facility] [address] [place], [place] [address]Dr. Duong Kieran PLT 183 103/ul Normal 150-450 [facility] Comment on above: Performed By: #### C BC ####[facility] [address] [place] [address]Dr. Duong Alcaraz RBC 4.04 106/ul Critically low 4.20-5.[address] [facility] Comment on above: Performed By: #### C BC ####[facility] [address] [place], [place] [address]ImDr. Duong Alcaraz WBC 3.9 103/ul Critically low 4.0-11.0 [facility] Comment on above: Performed By: #### C BC ####[facility] [address] [place] [id number]. Duong Alcaraz PROF 14(COMP METB)on 022 Albumin [Mass/Vol] 3.4 g/dL Normal 3.4-5.0 [facility] Comment on above: Performed By: #### C MP, BNP #### [facility] [address] [address] [address] Duong Alcaraz Albumin/Globulin [Mass ratio] 0.9 {ratio} Normal [facility] Comment on above: Performed By: #### C MP, BNP #### [facility] [address] [address] [address] Duong Alcaraz ALP [Catalytic activity/Vol] 33 U/L Critically low 46-116 [facility] Comment on above: Performed By: #### C MP, BNP #### [facility] [address] [address] [address] Duong Alcaraz ALT [Catalytic activity/Vol] 21 U/L Normal 14-59 [facility] Comment on above: Performed By: #### C MP, BNP #### [facility] [address] [address] [address] Duong Alcaraz Anion gap [Moles/Vol] 8.0 mmol/L Normal [facility] Comment on above: Performed By: #### C MP, BNP #### [facility] [address] [address] [address] Duong Alcraaz AST [Catalytic activity/Vol] 26 U/L Normal 15-37 [facility] Comment on above: Performed By: #### C MP, BNP #### [facility] [address] [address] [address] Duong Alcaraz Bilirubin [Mass/Vol] 0.6 mg/dL Normal 0.2-1.0 [facility] Comment on above: Performed By: #### C MP, BNP #### [facility] [address] [place] [address] Dr. Duong Alcaraz Calcium [Mass/Vol] 8.8 mg/dL Normal 8.5-10.1 [facility] Comment on above: Performed By: #### C MP, BNP #### [facility] [address] [place] [address] Dr. Duong Alcaraz Chloride [Moles/Vol] 98 mmol/L Normal 98-107 [facility] Comment on above: Performed By: #### C MP, BNP #### [facility] [address] [place] [address] Dr. Duong Alcaraz CO2 [Moles/Vol] 29.7 mmol/L Normal 21.0-32.0 [facility] Comment on above: Performed By: #### C MP, BNP #### [facility] [address] [place] [address] Dr. Duong Alcaraz Creatinine [Mass/Vol] 0.71 mg/dL Normal 0.55-1.02 [facility] Comment on above: Performed By: #### C MP, BNP #### [facility] [address] [place] [address] Dr. Duong Alcaraz EGFR-AF LUXEMBOURGER >60 Normal >=60 [facility] Comment on above: Performed By: #### C MP, BNP #### [facility] [address] [place] [address] Dr. Duong Alcaraz EGFR-NON AF LUXEMBOURGER >60 Normal >=60 [facility] Comment on above: Performed By: #### C MP, BNP #### [facility] [address] [place] [address] Dr. Duong Alcaraz Globulin (S) [Mass/Vol] 3.8 g/dL Normal [facility] Comment on above: Performed By: #### C MP, BNP #### [facility] [address] [place] [address] Dr. Duong Alcaraz Glucose [Mass/Vol] 94 mg/dL Normal 74-106 [facility] Comment on above: Performed By: #### C MP, BNP #### [facility] [address] [address] [address] Duong Alcaraz Potassium [Moles/Vol] 3.7 mmol/L Normal 3.5-5.1 [facility] Comment on above: Performed By: #### C MP, BNP #### [facility] [address] [address] [address] Duong Alcaraz Protein [Mass/Vol] 7.2 g/dL Normal 6.4-8.2 [facility] Comment on above: Performed By: #### C MP, BNP #### [facility] [address] [address] [address] Duong Alcaraz Sodium [Moles/Vol] 132 mmol/L Critically low 136-145 [facility] Comment on above: Performed By: #### C MP, BNP #### [facility] [address] [address] [address] Duong Alcaraz Urea nitrogen [Mass/Vol] 14.0 mg/dL Normal 7.0-18.0 [facility] Comment on above: Performed By: #### C MP, BNP #### [facility] [address] [place] [address] Dr. Duong Alcaraz Urea nitrogen/Creatinine [Mass ratio] 19.7 mg/mg Normal [facility] Comment on above: Performed By: #### C MP, BNP #### [facility] [address] [place] [address] Dr. Duong Alcaraz ECHOCARDIO M/2D COMPLETEon 0 11-03-2021 ECHOCARDIO M/2D COMPLETE Patient: GLENIS PEREZ Exam Date: 11/03/2021 : 1950 Gender:F Ordering : PARUL FITZPATRICK Admission #: [id number] Family : DR ANDIE FORDE . Order #: [id number] CLICK HERE TO VIEW EXAM ECHOCARDIOGRAM REPORT [...] Federico Riley M.D. on 11/03/2021 at 21:34 [facility] 10-04-2021 Natriuretic peptide B (Bld) [Mass/Vol] 200.0 pg/mL Normal <=900.0 [facility] Comment on above: Performed By: #### B DESIGN PAINTER, TSH, LIPID, CMP, T7 ####[facility] [address] [place], [place] [address]PtDr. Duong Alcaraz CBC AUTO DIFFon 10-04-2021 BASO # 0.1 103/ul Normal 0.0-0.1 [facility] Comment on above: Performed By: #### C BC #### [facility] [address] [address] [address] Duong Alcaraz Basophils/100 WBC (Bld) 1.2 % Normal 0.2-2.0 [facility] Comment on above: Performed By: #### C BC #### [facility] [address] [address] [address] Duong Alcaraz EO # 0.1 103/ul Normal 0.0-0.7 [facility] Comment on above: Performed By: #### C BC #### [facility] [address] [address] [address] Duong Alcaraz Eosinophils/100 WBC (Bld) 2.8 % Normal 0.9-7.0 [facility] Comment on above: Performed By: #### C BC #### [facility] [address] [address] [address] Duong Alcaraz Erythrocyte distribution width (RBC) [Ratio] 12.2 % Normal 11.0-15.0 [facility] Comment on above: Performed By: #### C BC #### [facility] [address] [address] [address] Duong Alcaraz Hematocrit (Bld) [Volume fraction] 37.0 % Normal 36.0-48.0 [facility] Comment on above: Performed By: #### C BC #### [facility] [address] [address] [address] Duong Alcaraz Hemoglobin (Bld) [Mass/Vol] 12.6 g/dL Normal 12.0-16.0 [facility] Comment on above: Performed By: #### C BC #### [facility] [address] [address] [address] Duong Alcaraz IG # 0.03 10e3/ul Normal 0.00-0.03 [facility] Comment on above: Performed By: #### C BC #### [facility] [address] [address] [address] Duong Alcaraz IG % 0.7 % Critically high 0.0-0.5 [facility] Comment on above: Performed By: #### C BC #### [facility] [address] [place] [address] Dr. Duong Alcaraz LYMPH # 0.7 103/ul Critically low 1.2-3.8 [facility] Comment on above: Performed By: #### C BC #### [facility] [address] [place] [address] Dr. Duong Alcaraz Lymphocytes/100 WBC (Bld) 16.0 % Critically low 20.5-60.0 [facility] Comment on above: Performed By: #### C BC #### [facility] [address] [place] [address] Dr. Duong Alcaraz MANUAL DIFF REQ NO Normal [facility] Comment on above: Performed By: #### C BC #### [facility] [address] [place] [address] Dr. Duong Alcaraz MCH (RBC) [Entitic mass] 31.4 pg Normal 26.7-34.0 [facility] Comment on above: Performed By: #### C BC #### [facility] [address] [place] [address] Dr. Duong Alcaraz MCHC (RBC) [Mass/Vol] 34.1 g/dL Normal 29.9-35.2 [facility] Comment on above: Performed By: #### C BC #### [facility] [address] [place] [address] Dr. Duong Alacraz MCV (RBC) [Entitic vol] 92.3 fL Normal 81.0-99.0 [facility] Comment on above: Performed By: #### C BC #### [facility] [address] [place] [address] Dr. Duong Alcaraz MONO # 0.5 103/ul Normal 0.3-0.8 [facility] Comment on above: Performed By: #### C BC #### [facility] [address] [place] [address] Dr. Duong Alcaraz Monocytes/100 WBC (Bld) 11.5 % Normal 1.7-12.0 [facility] Comment on above: Performed By: #### C BC #### [facility] [address] [place] [address] Dr. Duong Alcaraz NEUT # 2.9 103/ul Normal 1.4-6.5 [facility] Comment on above: Performed By: #### C BC #### [facility] [address] [place] [address] Dr. Duong Alcaraz Neutrophils/100 WBC (Bld) 67.8 % Normal 43.0-75.0 [facility] Comment on above: Performed By: #### C BC #### [facility] [address] [place] [address] Dr. Duong Alcaraz Platelet mean volume (Bld) [Entitic vol] 8.2 fL Critically low 9.5-13.5 [facility] Comment on above: Performed By: #### C BC #### [facility] [address] [place] [address] Dr. Duong Alcaraz PLT 191 103/ul Normal 150-450 [facility] Comment on above: Performed By: #### C BC #### [facility] [address] [place] [address] Dr. Duong Alcaraz RBC 4.01 106/ul Critically low 4.20-5.[address] [facility] Comment on above: Performed By: #### C BC #### [facility] [address] [place] [address] Dr. Duong Alcaraz WBC 4.3 103/ul Normal 4.0-11.0 [facility] Comment on above: Performed By: #### C BC #### [facility] [address] [place] [address] Dr. Duong Alcaraz FREE THYROXINE INDEX T7on FTI 3.01 Normal 1.30-4.50 [facility] Comment on above: Performed By: #### B DESIGN PAINTER, TSH, LIPID, CMP, T7 ####[facility] [address] [place] [address]Dr. Duong Alcaraz T3U 35.0 % Normal 30.0-39.0 [facility] Comment on above: Performed By: #### B DESIGN PAINTER, TSH, LIPID, CMP, T7 ####[facility] [address] [place], [place] [address]DrClovis Alcaraz T4 [Mass/Vol] 8.60 ug/dL Normal 4.80-13.90 [facility] Comment on above: Performed By: #### B DESIGN PAINTER, TSH, LIPID, CMP, T7 ####[facility] [address] [place] [id number] Alcaraz GLYCOHEMOGLOBIN A1Con 2021 ADA RECOMMENDATION SEE BELOW Normal [facility] Comment on above: Result Comment: ADA RECOMMENDED LIMIT 4.0 - 6.0 ADA THERAPEUTIC TARGET < 7.0 ACTION SUGGESTED > 7.0 Performed By: #### A 1C #### [facility] [address] [address] [address] Duong Alcaraz Glucose [Mass/Vol] 108 mg/dL Normal [facility] Comment on above: Performed By: #### A 1C #### [facility] [address] [address] [address] Duong Alcaraz HbA1c (Bld) [Mass fraction] 5.4 % Normal 4.5-6.2 [facility] Comment on above: Performed By: #### A 1C #### [facility] [address] [address] [address] Duong Alcaraz IRONon 10-04-2021 Iron [Mass/Vol] 93.0 ug/dL Normal 50.0-170.[address] [facility] Comment on above: Performed By: #### I SHARRON ####[facility] [address] [place] [address]Dr. Duong Alcaraz LIPID PROFILEon 10-04-2021 CHOL-HDL RATIO NORM SEE BELOW Normal [facility] Comment on above: Result Comment: 3.3 - 4.4 LOW RISK 4.4 - 7.1 AVERAGE RISK 7.1 - 11.0 MODERATE RISK >11.0 HIGH RISK Performed By: #### B DESIGN PAINTER, TSH, LIPID, CMP, T7 ####[facility] [address] [place] [address]Dr. Sleenastevo Alcaraz Cholesterol [Mass/Vol] 182 mg/dL Normal <=200 [facility] Comment on above: Performed By: #### B DESIGN PAINTER, TSH, LIPID, CMP, T7 ####[facility] [address] [place] [address]Dr. Duong Alcaraz Cholesterol in HDL [Mass/Vol] 69 mg/dL Critically high 40-60 [facility] Comment on above: Performed By: #### B DESIGN PAINTER, TSH, LIPID, CMP, T7 ####[facility] [address] [place] [address]Dr. Duong Alcaraz Cholesterol in LDL [Mass/Vol] 107.6 mg/dL Normal [facility] Comment on above: Performed By: #### B DESIGN PAINTER, TSH, LIPID, CMP, T7 ####[facility] [address] [place] [address]Dr. Duong Alcaraz Cholesterol.total/C holesterol in HDL [Mass ratio] 2.6 {ratio} Normal [facility] Comment on above: Performed By: #### B DESIGN PAINTER, TSH, LIPID, CMP, T7 ####[facility] [address] [place] [address]Dr. Duong Alcaraz HDL NORMAL > or = 60 mg/dl - LO W CARDIOVASCULAR RISK <40 mg/dl - HIGH CARDIOVASCULAR RISK Normal [facility] Comment on above: Performed By: #### B DESIGN PAINTER, TSH, LIPID, CMP, T7 ####[facility] [address] [place] [id number]. Duong Alcaraz LDL CALC NORMAL SEE BELOW Normal [facility] Comment on above: Result Comment: <100 mg/dl OPTIMAL 100 - 129 mg/dl NEAR OR ABOVE OPTIMAL 130 - 159 mg/dl BORDERLINE HIGH 160 - 189 mg/dl HIGH >190 mg/dl VERY HIGH Performed By: #### B DESIGN PAINTER, TSH, LIPID, CMP, T7 ####[facility] [address] [place], [place] [address]IpDr. Duong Alacraz Triglyceride [Mass/Vol] 27 mg/dL Normal <=150 [facility] Comment on above: Performed By: #### B DESIGN PAINTER, TSH, LIPID, CMP, T7 ####[facility] [address] [place], [place] [address]XoDr. Duong Alcaraz VLDL CALC 5.4 mg/dL Normal [facility] Comment on above: Performed By: #### B DESIGN PAINTER, TSH, LIPID, CMP, T7 ####[facility] [address] [place] [id number]. Duong Alcaraz PROF 14(COMP METB)on 022 Albumin [Mass/Vol] 3.5 g/dL Normal 3.4-5.0 [facility] Comment on above: Performed By: #### B DESIGN PAINTER, TSH, LIPID, CMP, T7 #### [facility] [address] [address] [address] Duong Alcaraz Albumin/Globulin [Mass ratio] 1.0 {ratio} Normal [facility] Comment on above: Performed By: #### B DESIGN PAINTER, TSH, LIPID, CMP, T7 #### [facility] [address] [address] [address] Duong Alcaraz ALP [Catalytic activity/Vol] 34 U/L Critically low 46-116 [facility] Comment on above: Performed By: #### B DESIGN PAINTER, TSH, LIPID, CMP, T7 #### [facility] [address] [address] [address] Duong Alcaraz ALT [Catalytic activity/Vol] 22 U/L Normal 14-59 [facility] Comment on above: Performed By: #### B DESIGN PAINTER, TSH, LIPID, CMP, T7 #### [facility] [address] [address] [address] Duong Alcaraz Anion gap [Moles/Vol] 12.3 mmol/L Normal [facility] Comment on above: Performed By: #### B DESIGN PAINTER, TSH, LIPID, CMP, T7 #### [facility] [address] [place] [address] Dr. Duong Alcaraz AST [Catalytic activity/Vol] 19 U/L Normal 15-37 [facility] Comment on above: Performed By: #### B DESIGN PAINTER, TSH, LIPID, CMP, T7 #### [facility] [address] [place] [address] Dr. Duong Alcaraz Bilirubin [Mass/Vol] 0.6 mg/dL Normal 0.2-1.0 [facility] Comment on above: Performed By: #### B DESIGN PAINTER, TSH, LIPID, CMP, T7 #### [facility] [address] [place] [address] Dr. Duong Alcaraz Calcium [Mass/Vol] 8.5 mg/dL Normal 8.5-10.1 [facility] Comment on above: Performed By: #### B DESIGN PAINTER, TSH, LIPID, CMP, T7 #### [facility] [address] [place] [address] Dr. Duong Alcaraz Chloride [Moles/Vol] 101 mmol/L Normal 98-107 [facility] Comment on above: Performed By: #### B DESIGN PAINTER, TSH, LIPID, CMP, T7 #### [facility] [address] [place] [address] Dr. Duong Alcaraz CO2 [Moles/Vol] 25.3 mmol/L Normal 21.0-32.0 The [facility] Comment on above: Performed By: #### B DESIGN PAINTER, TSH, LIPID, CMP, T7 #### [facility] [address] [place] [address] Dr. Duong Alcaraz Creatinine [Mass/Vol] 0.64 mg/dL Normal 0.55-1.02 [facility] Comment on above: Performed By: #### B DESIGN PAINTER, TSH, LIPID, CMP, T7 #### [facility] [address] [place] [address] Dr. Duong Alcaraz EGFR-AF LUXEMBOURGER >60 Normal >=60 The [facility] Comment on above: Performed By: #### B DESIGN PAINTER, TSH, LIPID, CMP, T7 #### [facility] [address] [place] [address] Dr. Duong Alcaraz EGFR-NON AF LUXEMBOURGER >60 Normal >=60 [facility] Comment on above: Performed By: #### B DESIGN PAINTER, TSH, LIPID, CMP, T7 #### [facility] [address] [address] [address] Duong Alcaraz Globulin (S) [Mass/Vol] 3.4 g/dL Normal [facility] Comment on above: Performed By: #### B DESIGN PAINTER, TSH, LIPID, CMP, T7 #### [facility] [address] [address] [address] Duong Alcaraz Glucose [Mass/Vol] 91 mg/dL Normal 74-106 [facility] Comment on above: Performed By: #### B DESIGN PAINTER, TSH, LIPID, CMP, T7 #### [facility] [address] [place] [address] Dr. Duong Alcaraz Potassium [Moles/Vol] 4.6 mmol/L Normal 3.5-5.1 [facility] Comment on above: Performed By: #### B DESIGN PAINTER, TSH, LIPID, CMP, T7 #### [facility] [address] [address] [address] Duong Alcaraz Protein [Mass/Vol] 6.9 g/dL Normal 6.4-8.[address] [facility] Comment on above: Performed By: #### B DESIGN PAINTER, TSH, LIPID, CMP, T7 #### [facility] [address] [place] [address] Dr. Duong Alcaraz Sodium [Moles/Vol] 134 mmol/L Critically low 136-145 [facility] Comment on above: Performed By: #### B DESIGN PAINTER, TSH, LIPID, CMP, T7 #### [facility] [address] [address] [address] Duong Alcaraz Urea nitrogen [Mass/Vol] 11.0 mg/dL Normal 7.0-18.0 [facility] Comment on above: Performed By: #### B DESIGN PAINTER, TSH, LIPID, CMP, T7 #### [facility] [address] [address] [address] Duong Alcaraz Urea nitrogen/Creatinine [Mass ratio] 17.2 mg/mg Normal [facility] Comment on above: Performed By: #### B DESIGN PAINTER, TSH, LIPID, CMP, T7 #### [facility] [address] [place], [place] [address] Dr. Duong Alcaraz TSHon 10-04-2021 TSH 1.568 uIU/mL Normal 0.358-3.740 [facility] Comment on above: Performed By: #### B DESIGN PAINTER, TSH, LIPID, CMP, T7 ####[facility] [address] [place], [place] [address]QiDr. Duong Alcaraz TSH RANGE SEE BELOW Normal [facility] Comment on above: Result Comment: <0.3 4 UIU/ml HYPERTHYROID 0.34-5.60 UIU/ml EUTHYROID >5.60 UIU/ml HYPOTHYROID Performed By: #### B DESIGN PAINTER, TSH, LIPID, CMP, T7 ####[facility] [address] [place], [place] [address]CvDr. Duong Alcaraz MG MAMM SCREEN 3D ALONSO CADon 09-15-2021 MG MAMM SCREEN 3D ALONSO CAD Patient: GLENIS PEREZ Exam Date: 09/15/2021 : 1950 Gender:F Ordering : DR ANDIE FORDE . Admission #: [id number] Family : Order #: [id number] CLICK HERE TO VIEW EXAM RADIOLOGY REPORT [...] Treatments None Family Cancers None LOCATION: [facility] BREAST COMPOSITION: Heterogeneously dense,which may [...] Ortega M.D. on 09/15/2021 at 15:08 Normal [facility] XR DEXA BONE DENSITYon 09-15 [...] by: GRANT ORTEGA Date: 2021-09-15 08:58 Normal [facility] Cardiovascular Lab Reporton 11-12-2020 Cardiovascular Lab Report [facility] Patient Name: Chris Glenis [facility] MR #: [id number] Physician: Doe Velez, Department of M.D. Medicine Service Date: 11/11/2020 Division of Birthdate: 1950 Cardiology Room #: [facility] Cardiovascular Services [place] [address] Cardiovascular Laboratory Report CLINICAL PRESENTATION: The patient [...] left radial artery. Using ultrasound guidance, a 6-[place] Terumo Glidesheath slender was placed in the left radial artery. The radial anti-vasospasm cocktail of nitroglycerin 200 mcg and verapamil 2.5 mg was administered through the sheath. All catheter exchanges were made over the Magic Torque guidewire. A 5-[place] JR4 used to engage the right coronary artery. A 5-[place] JL4 used to engage the left main [...] Velez M.D. Date Trans: 11/12/2020 05:34 A/viri [id number] cc: Siddharth Nolasco MD Dept Of Cardiology [address] [facility] [address] Andie Forde M.D. [address] [address] Parul Fitzpatrick CNP [address] [facility] Mailstop [address] [facility] [address] Normal [facility] 08-26-2020 Forms [id number] .[id number]:127 Normal [facility] Physician Referralon 021 Physician Referral [id number] .[id number]:127 Normal [facility] Ambulatory Clinical Summaryo n 08-25-2020 Ambulatory Clinical Summary {[id number] -[id number] Gaviota Griffin [facility] Patient Educationon 08-26-19 Patient Education [...] Document Reviewed: 05/18/2012 ExitCare? Patient Information ?2013 [employer]. 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 Requested stent placement to aid in dissection [...] Urnls Dip Stick Auto w/o Microscopy POC [id number] Urology Procedure Order 2. UTI (urinary tract infection) (N39.0: Urinary tract infection, site not specified) UA today appears to be infected with positive nitrate. Will start pt. on Cipro 500mg bid, #6. Script sent to [facility] in [place]. Ordered: Urology Procedure Order 3. Microscopic hematuria (R31.29: Other microscopic hematuria) UA today - trace intact. Ordered: Urology Procedure Order Orders: ciprofloxacin, 500 mg = 1 tab(s), Oral, q12hr, X 3 day(s), # 6 tab(s), Refills(s) 0, Pharmacy: [facility] 1155, 160, cm, 08/25/20 11:31:00 EDT, Height/Length Dosing, 75.6, kg, 08/25/20 11:31:00 EDT, Weight Dosing I have reviewed the previous health record information and history for this pt. from Dr. Gonzalez. Follow-up With When Contact Information Carlos Alvarado MD, Dallin Malik, [facility] [address] [place] [id number]- Additional Instructions: Patient Education Urinary Tract Infection INegra (more content not included)... Normal [facility] Comment on above: Result Comment: Elec tronically Signed By: Dallin Gonzalez Jr., MD\.br\Date and Time Signed: 08/25/20 13:08 EDT\.br\Electronically Co-Signed By: Negra Mccullough MA\.br\Date and Time Co-Signed: 08/25/20 11:50 EDT Vital Signs Date Time Vital Sign Value Performing Clinician Facility 02-27-2023 10:15-0500 Body height 161.29 cm Tomás Wills Other [facility] Other 11-28-2022 11:00-0400 Body height 161.29 cm Tomás Wills Other [facility] Other 11-28-2022 11:00-0400 Body mass index (BMI) [Ratio] 27.55 kg/m2 Tomás Wills Other [facility] Other 11-28-2022 11:00-0400 Body weight 71.67 kg Tomás Wills Other [facility] Other 09-28-2022 13:15-0400 Body height 161.29 cm Tomás Wills Other [facility] Other 09-28-2022 13:15-0400 Body mass index (BMI) [Ratio] 27.9 kg/m2 Tomás Wills Other [facility] Other 09-28-2022 13:15-0400 Body weight 72.58 kg Tomás Wills Other [facility] Other 04-22-2022 16:30-0500 Body height 161.29 cm Linda Hall Other [facility] Other 04-22-2022 16:30-0500 Body mass index (BMI) [Ratio] 27.02 kg/m2 Linda Hall Other [facility] Other 04-22-2022 16:30-0500 Body temperature 96.4 [degF] Linda Hall Other [facility] Other 04-22-2022 16:30-0500 Body weight 70.31 kg Linda Hall Other [facility] Other 04-22-2022 16:30-0500 Respiratory rate 18 /min Linda Hall Other [facility] Other 04-22-2022 16:30-0500 SaO2% (BldA) [Mass fraction] 98 % Linda Hall Other [facility] Other Encounters Encounter Date Encounter Type Care Provider Facility Start: 01-08-2024 End: 01-08-2024 ambulatory [facility] Start: 11-22-2023 End: 11-22-2023 ambulatory FRANK E RINKES Not Available Start: 07-13-2023 End: 07-13-2023 ambulatory FRANK E RINKES Not Available Start: 04-04-2023 End: 04-04-2023 ambulatory FRANK E RINKES Not Available Start: 02-27-2023 Office outpatient vi sit 15 minutes Tomás Wills [facility] Start: 02-27-2023 End: 02-27-2023 ambulatory Tomás Wills [facility] Other Start: 01-18-2023 End: 01-18-2023 ambulatory Tomás Wills Other [facility] Other Start: 01-18-2023 Telephone encounter Tomás CHRISTENSEN [facility] Start: 12-28-2022 End: 12-28-2022 ambulatory Tomás Wills Other [facility] Other Start: 12-28-2022 Telephone encounter Tomás CHRISTENSEN [facility] Start: 11-28-2022 End: 11-28-2022 ambulatory Tomás Wills Other [facility] Other Start: 11-28-2022 Postop follow up vis it related to original px Tomás Wills [facility] Start: 09-28-2022 End: 09-28-2022 ambulatory Tomás Wills Other [facility] Other Start: 09-28-2022 Postop follow up vis it related to original px Tomás Wills [facility] Start: 09-23-2022 End: 09-23-2022 ambulatory Tomás Wills Other [facility] Other Start: 09-23-2022 Telephone encounter Tomás Wills [facility] Start: 09-13-2022 End: 09-13-2022 ambulatory Andie Forde Facility:[facility] Start: 08-24-2022 End: 08-24-2022 ambulatory Tomás Wills Facility:[facility] Start: 08-19-2022 End: 08-20-[address] ANDIE FORDE . Facility:[facility] Start: 08-12-2022 End: 08-12-2022 ambulatory Tomás Wills Facility:[facility] Start: 07-04-2022 End: 07-05-[address] ANDIE FORDE . Facility:[facility] Start: 06-22-2022 End: 06-23-[address] ANDIE FORDE . Facility:[facility] Start: 04-22-2022 End: 04-22-2022 ambulatory Linda Hall Other [facility] Other Start: 04-22-2022 Office outpatient ne w [...] Start: 11-11-2020 End: 11-12-2020 ambulatory DOE VELEZ Facility:[facility] Payers Date Payer Category Payer Self-pay 1961 Medicare [id number] 1961 Unknown [id number] 1950 Unknown [id number] 2.16.8 40.1.411247.3.579.2.647 1948 Unknown [id number] 2.16.84 0.1.582905.3.579.2.593 1948 Unknown [id number] 2.16.84 0.1.288146.3.579.2.593 1948 Unknown [id number] 2.16.84 0.1.247826.3.579.2.593 1948 Unknown [id number] 2.16.84 0.1.666637.3.579.2.593 1948 Unknown [id number] 2.16.84 0.1.210664.3.579.2.593 1948 Unknown [id number] 2.16.84 0.1.101206.3.579.2.593 1948 Unknown [id number] 2.16.84 0.1.609366.3.579.2.593 1948 Unknown [id number] 2.16.84 0.1.043767.3.579.2.593 1948 Unknown [id number] 2.16.84 0.1.979233.3.579.2.593 1948 Unknown [id number] 2.16.84 0.1.827683.3.579.2.593 1948 Unknown [id number] 2.16.84 0.1.528098.3.579.2.593 1948 Unknown [id number] 2.16.84 0.1.903082.3.579.2.593 1948 Unknown [id number] 2.16.84 0.1.291689.3.579.2.1259 1948 Unknown [id number] 2.16.84 0.1.336076.3.579.2.1259 1948 Unknown [id number] 2.16.840 .1.456359.3.579.2.1259 Unknown [id number] 2.1 6.840.1.406706.19 Unknown [id number] 2.16.8 40.1.582254.3.579.2.531 Unknown [id number] 2.16.8 40.1.998362.3.579.2.531 Unknown [id number] 2.16.8 40.1.088327.3.579.2.531 Unknown [id number] 2.16.8 40.1.931113.3.579.2.531 Social History Date Type Detail Facility Sex Assigned At [facility] Other Clinical Notes 04-22-2022 to 01-08-2024 Note Date & Type Note Facility 01-08-2024 Note Continue carvedilol currently remains stable. [facility] 01-08-2024 Note Currently no concern ing symptoms and patient denies any palpitations. Continue carvedilol 12.5 mg twice daily. [facility] 01-08-2024 Note Hypertension is well -controlled currently. Continue carvedilol and hydrochlorothiazide Renal function and electrolytes are normal She does admit to occasional lightheadedness with low blood pressure denies any syncope or near syncope. Admits that typical days she does not hydrate well enough and likes to drink ice tea therefore we discussed adequate hydration. [facility] 01-08-2024 Note [facility]TP CARDIOLOGY PROGR ESS NOTE [...] and likes t (more content not included)... [facility] 01-08-2024 Note Pt here for a one ye ar follow up. Pt denies chest pain, palpatation, sob. Review of Systems Constitutional: Negative for chills, decreased appetite, fever and weight gain. Cardiovascular: Positive for leg swelling (swelling in left ankle). Negative for chest pain, dyspnea on exertion, irregular heartbeat, near-syncope, orthopnea, palpitations, paroxysmal nocturnal dyspnea and syncope. All other systems reviewed and are negative. [facility] 02-27-2023 Evaluation note Encounter Date Diagnosis Assessment [...] from surgery. 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 Activity as tolerated. Call with questions/anuradha rns. Provided AAOS hand out on hip conditioning and IT band exercises. [facility] Other 09-06-2023 Evaluation note* Encounter Date Diagnosis Assessment Notes Treatment Notes Treatment Clinical Notes Dec, History of total left knee replacement (ICD-10 - Z96.652) [facility] Other 08-07-2023 Evaluation note* Encounter Date Diagnosis [...] total left knee replacement (ICD-10 - Z96.652) [facility] Other 06-07-2023 Evaluation note* Encounter Date Diagnosis [...] meniscus of left knee (ICD-10 - M23.307) [facility] Other 06-02-2023 Evaluation note* Encounter Date Diagnosis Assessment Notes Treatment Notes Treatment Clinical Notes Sep, Primary osteoarthritis of left knee (ICD-10 - M17.12) [facility] Other 03-01-2023 NotePROCEDURE: XR KNEE LT 4V or > COMPARISON: 04/09/2021 HISTORY: Pain of left knee joint FINDINGS: BONES:No acute fracture or dislocation. 7 mm osteochondral injury medial femoral condyle. Tricompartmental osteoarthropathy most significant in the medial compartment SOFT TISSUES:Negative. No visible soft tissue swelling. EFFUSION:None visible. OTHER: Negative. IMPRESSION: Osteochondral injury medial femoral condyle Electronically authenticated by: LISET MEZA Date: 2022-06-22 17:[address] [place], [place] [address]-30-2022 Evaluation note* Encounter Date Diagnosis Assessment Notes [...] treatment plan Mar, Headache (ICD-10 - R51.9) [facility] Other [facility] Other History general Narrative - Reported* Type Description Date Medical History hx of hypertension Surgical History tubiligation Surgical History [facility] Hospitalization History vaginal child x 3 [facility] Other History general Narrative - Reported* Type Description Date Medical History hx of hypertension Medical History PVC Medical History osteoarthritis of the left knee Surgical History tubiligation Surgical History [place] [facility] Hospitalization History vaginal child x 3 [facility] Other History general Narrative - Reported* Type Description Date Medical History hx of hypertension Medical History PVC Medical History osteoarthritis of the left knee Surgical History tubiligation Surgical History [place] [facility]oth Extraction Surgical History left total knee arthroplasty Hospitalization History vaginal child x 3 [employer] [facility] Other Summary Purpose Family History No Family [...] section and content) DATE CREATED AUTHOR [facility]24/2020 [facility] DATE CREATED AUTHOR AUTHOR'S ORGANIZ ATION 11/18/2020 [facility] DATE CREATED AUTHOR AUTHOR'S ORGANIZ ATION 08/26/2022 [facility] DATE CREATED AUTHOR AUTHOR'S ORGANIZ ATION 05/13/2023 [facility] DATE CREATED AUTHOR AUTHOR'S ORGANIZ ATION 11/25/2023 [facility] DATE CREATED AUTHOR AUTHOR'S ORGANIZ ATION 01/09/[address] [facility] REASON FOR VISIT (unrecogniz ed section and [...] BE BASED ON THE PRIMARY CLINICAL RECORDS. [email or web address] provides no warranty or guarantee of the accuracy or completeness of information in this document.
[2024-03-11 16:15] LABS: Bilirubin Urine NEGATIVE (NEGATIVE); Blood Urine NEGATIVE (NEGATIVE); Clarity Urine CLEAR (CLEAR); Color Urine LT. YELLOW (YELLOW); Glucose Urine UA NEGATIVE (NEGATIVE); Ketones Urine NEGATIVE (NEGATIVE); Leukocyte Esterase Urine SMALL (NEGATIVE); Nitrite Urine POSITIVE (NEGATIVE); Protein Urine NEGATIVE (NEG/TRACE); Specific Gravity Urine <=1.005 (1.005-1.025); Urobilinogen Urine 0.2 EU/dL (0.2-1.0)
[2024-03-11 16:39] LABS: Bacteria Urine MODERATE #/HPF (NONE SEEN); Cast Seen? NONE SEEN #/LPF (NONE SEEN); Crystals Seen? None Seen #/HPF (None Seen); Mucus Urine NONE SEEN (NONE SEEN); RBC Urine 0-2 #/HPF (0-2); Squamous Epithelial Cell Urine RARE #/LPF (NONE/RARE); Urine Culture Indicated ALREADY ORDERED
== END 2024-03-11 15:40 | disposition home or self-care (01) ==
LOC: LAB 15:40
PROVIDERS: PCP Family Medicine; Visit Provider Family Medicine
DX: N39.0 Urinary tract infection, site not specified (principal)
CPT/HCPCS: 81001; 87086; 87150; 87186

== ENCOUNTER 2024-05-03 11:54 | Outpatient (REF) | payer MEDICARE, OTHER, SELFPAY ==
--- OUTSIDE RECORDS SUMMARY | 2024-05-03 12:07 | XMS_ITS | CCD ---
Author Organization [facility] Care Team Providers Care Cost Control Specialist Name Role Phone DOE VELEZ Attending Unavailable DOE VELEZ Admitting Unavailable NADIA FORDELAS Referring Unavailable ANDIE FORDE Primary Care Unavailable [...] Unavailable HOY ., DR CHAVES Consulting Unavailable WEST, DR LISET Cuadra Consulting Unavailable HOY ., [...] OWEN Consulting Unavailabl e Elma, Tomás Unavailable Elma Tomás A Admitting Unavailable Hoy, Andie M Primary Care Unavailable Elma, Tomás A Attending Unavailable Elma, Tomás A Admitting Unavailable Gopiy, Andie M Primary Care Unavailable Elma, Tomás A Attending Unavailable Elma, Tomás A Admitting Unavailable Hoy, Andie M Primary Care Unavailable Elma, Tomás A Attending Unavailable Hoy, Andie M Primary Care Unavailable Elma, Tomás A Admitting Unavailable Elma, Tomás A Attending Unavailable TATIANNA ARANA Attending Unavailable Andie Forde MD Primary Care Provider [phone] FRANK VILLARREAL E Attending Unavailable RINJULIAN FRANK E Attending Unavailable RINJULIAN FRANK E Attending Unavailable ERNIE MILLER Attending Unavailable Allergies Allergy Classification Reported Allergen(s) Allergy Type Date of Onset Reaction(s) Facility Penicillins (antibiotic) (1 source) Penicillin Drug Allergy 1 [facility] Repository Tetracyclines (antibiotic) (1 source) Tetracyclines Drug Allergy 1 [facility] Repository (7 sources) Penicillin Drug Allergy Unknown [employer] Other (11 sources) Tetracycline; Translations: [TETRACYCLINE] Drug Allergy 2 [facility] Repository (2 sources) Penicillins; Translations: [PENICILLINS] Drug allergy (disorder) 4 [facility] Repository (1 source) Tetracycline Drug Allergy 4 [facility] Repository (1 source) Penicillins Drug allergy (disorder) 3 [facility] Repository (1 source) Tetracycline Drug Allergy 3 [facility] Repository (3 sources) Penicillins Drug Allergy 2 [facility] Healthcare (2 sources) levoFLOXacin Drug Allergy 4 [facility] Healthcare Medications Current Medications Medication Drug Class(es) Dates Sig (Normalized) Sig (Original) aspirin 325 mg oral tablet (9 sources) Platelet Aggregation Inhibitor, Nonsteroidal Anti-inflammatory Drug take 1 tablet by mouth in the morning aspirin 325 MG tablet Take 1 tablet by mouth in the morning. Active Aspirin Active calcium citrate 950 mg oral tablet (3 sources) take 1 tablet by mouth in the morning calcium citrate (Calcitrate) 950 (200 Ca) MG tablet Take 400 mg by mouth in the morning and 400 mg in the evening. Active carvedilol 12.5 mg oral tablet (10 sources) alpha-Adrenergic Cesario, beta-Adrenergic Cesario take 1 tablet by mouth twice daily at dinner carvedilol (Coreg) 12.5 MG tablet TAKE ONE TABLET BY MOUTH TWICE A DAY (WITH BREAKFAST AND EVENING MEAL) Active take 1 tablet by mouth every twe lve hours Coreg 3.125 MG 1 tablet with food Orally Twice a day for 30 day(s) Active cetirizine hydrochloride 10 mg oral tablet (3 sources) Histamine-1 Receptor Antagonist take 1 tablet by mouth in the morning cetirizine (ZyrTEC) 10 MG tablet Take 10 mg by mouth in the morning. Active 1 ml denosumab 60 mg/ml prefilled syringe (3 sources) RANK Ligand Inhibitor denosumab (Prolia) 6 0 MG/ML solution prefilled syringe Inject 60 mg under the skin. Active estradiol 0.1 mg/ml vaginal cream (3 sources) Estrogen estradiol (Estra ce) 0.1 MG/GM vaginal cream Apply 1 g topically 3 (three) times a week Active Handicap placards as directed (5 sources) Start: 2022 Handicap placards as directed as directed as directed as directed for 365 days Sep, Active hydroCHLOROthiazide 25 mg oral tablet (10 sources) Thiazide Diuretic take 0.5 tablet by mouth once daily hydroCHLOROthiazide (HYDRODiuril) 25 MG tablet TAKE 1/2 TABLET EVERY DAY BY ORAL ROUTE. Active hydroCHLOROthiaz abe Active Iron (6 sources) Iron Active Nitrofurantoin (7 sources) Nitrofuran Antibacterial Nitrofurantoin Activ e omeprazole 20 mg delayed release oral capsule (9 sources) Proton Pump Inhibitor take 1 capsule by mouth before mealtime omeprazole (PriLOSEC) [address] capsule Take 20 mg by mouth in the morning. Take before meals. Do not crush or chew.. Active Omeprazole Activ e Vitamin D 1000 UNIT (7 sources) take 1 tablet [facility] once daily Vitamin D 1000 UNIT 1 [...] Not-Taking Start: 09-09-2022 take 1 capsule by mo [facility] every twelve hours Clindamycin HCl 300 [...] source) Impacted cerumen, right ear Episodic Other lower respiratory disease (2 sources) Snoring; Translations: [Snoring] 03-20-2024 Episodic Other non-traumatic joint disorders (5 sources) Pain in left knee; Translations: [PAIN IN LEFT KNEE] Onset: 09-17-2021 Episodic Other upper respiratory infections (1 source) Acute sinusitis, unspecified Episodic Residual codes; unclassified (4 sources) Obstructive sleep apnea (adult) (pediatric); Translations: [OBSTRUCTIVE SLEEP APNEA] Onset: 10-04-2021 Chronic Residual codes; unclassified (2 sources) Obstructive sleep apnea syndrome; Translations: [Obstructive sleep apnea (adult) (pediatric)] 03-20-2024 Chronic Residual codes; unclassified (2 sources) Hypersomnia; Translations: [Hypersomnia, unspecified] 03-20-2024 Chronic Residual codes; unclassified (1 source) Other [...] bone density and structure, unspecified site; Translations: [OT D/O BONE DEN STRUCT UNS SITE] Onset: [...] Range Facility Office Visiton 01-08-2024 Follow-up visit [id number] Glenis Perez 1950 F Date Provider Department Center 01/08/2024 Kirt-TATIANNA ARANA Family History Problem Relation Age of Onset Heart attack Mother Coronary artery disease Mother Other Brother Family Status - Relation Status Age at Mother Brother Level of Service:80949 [place] OFFICE/OUTPATIENT ESTABLISHED SF MDM 10 MIN Normal [facility] XR knee LT 2Von 02-27-2023 XR knee LT 2V [facility] [address] [place] [address] XRay Report Signed Patient: Glenis Perez MR#: [id number] 42 : 1950 Acct:[id number] Age/Sex: 72 / F ADM Date: 02/27/23 [place] [facility] [place] Type[facility] Attending Dr: Tomás Wills DO Copies [...] Raúl Woo M.D.02/27/2023 3:08 PM Dictation Location: [place] [address] Transcribed By: [facility] 02/27/23 1508 Dictated By: Raúl Woo DO 02/27/23 1508 Signed By: 02/27/[address] [facility] XR knee LT 2V [facility] [employer] Other XR knee LT 2V [facility] [employer] Other XR knee LT 2V [address] [place] [address] [employer] Other XR knee LT 2[place] [address] [facility] [employer] Other XR knee LT 2V XRay Report [facility] [employer] Other XR knee LT 2V Signed [place] [employer] Other XR knee LT 2V Patient: Glenis Perez MR#: [id number] [facility] [employer] Other XR knee LT 2V [address] [facility] [employer] Other XR knee LT 2V : 1950 Acct:[id number] [employer] Other XR knee LT 2V Age/Sex: 72 / F ADM Date: 02/27/23 [employer] Other XR knee LT 2V Loc: [facility] Room: Type : [facility] [employer] Other XR knee LT 2V Attending Dr: Tomás Wills DO [employer] Other XR knee LT 2V Copies to: Tomás Wills DO [employer] Other XR knee LT 2V Ordering Provider: Tomás Wills DO [employer] Other XR knee LT 2V Date of Service: 02/27/23 [employer] Other XR knee LT 2V XR/XR knee LT 2V: Status post total left knee replacement [employer] Other XR knee LT 2V 2 views LEFT knee plain film [employer] Other XR knee LT 2V COMPARISON: 09/13/22 N [employer] Other XR knee LT 2V HISTORY: Status post LEFT total knee arthroplasty [employer] Other XR knee LT 2V ACUTE FINDINGS: None N [employer] Other XR knee LT 2V DEGENERATIVE CHANGE: Unremarkable [employer] Other XR knee LT 2V SOFT TISSUE FINDINGS : Unremarkable [employer] Other XR knee LT 2V JOINT EFFUSION: None N [employer] Other XR knee LT 2V POSTOP CHANGES: Stable hardware [employer] Other XR knee LT 2V BONE MINERALIZATION: Adequate [employer] Other XR knee LT 2V XR/XR knee LT 2V [employer] Other XR knee LT 2V IMPRESSION: Uncomplicated LEFT knee arthroplasty [employer] Other XR knee LT 2V Impression dictated by: Raúl Woo M.D.02/27/2023 3:08 PM [employer] Other XR knee LT 2V Dictation Location: [place] [address] [employer] Other XR knee LT 2V Transcribed By: PWS 02/27/23 [facility] [employer] Other XR knee LT 2V Dictated By: Raúl Woo DO 02/27/23 [facility] [employer] Other XR knee LT 2V Signed By: [employer] Other XR knee LT 2V 02/27/23 [address] [employer] Other [place] 09-13-2022 L - -------- Specimen: [id number] Received: 09/13/22 Status: LUZ Lynn Num: [id number] Spec Type: Surgical Subm Dr: Tomás Wills DO Tissues: A Joint/Knee (LT KNEE) Procedures: Gross/Micro L4, Decalcification -------- Age/ Patient Sex Location Account Attending Physician -------- Glenis Perez Ann 71/F [place] [id number] Tomás Wills DO -------- SPEC NUM: [id number] RECD: 09/13/22 STATUS: LUZ LYNN NUM: [id number] SETH: 09/13/22- [facility] DR: Tomás Wills DO ENTERED: 09/13/[address] [facility] [address]: ANDREW TYPE: Surgical DEPT: S [...] is taken. Gross examination only. CPT Codes 50615 Gross Photo -------- -------- Specimen: [id number] Received: 09/13/22 Status: LUZ Lynn Num: [id number] Spec Type: Surgical Subm Dr: Tomás Wills DO Tissues: A Joint/Knee (LT KNEE) Procedures: Gross/Micro L4, Decalcification -------- Patient: Glenis Perez [id number] (Continued) -------- Signed (signature on file) Kendra Guzman MD 09/14/[address] [facility] XR knee LT 2Von 09-13-2022 XR knee LT 2V [address] [address] XRay Report Signed Patient: Glenis Perez MR#: [id number] [birth year] : 1950 Acct:[id number] Age/Sex: 71 / F ADM Date: 09/13/22 Loc: [place] Room: Type: [facility] Attending Dr: Tomás Wills DO Copies to: [...] Sameer Guy M.D.09/13/2022 3:01 PM Dictation Location: [place] [address] Transcribed By: [facility] 09/13/22 1501 Dictated By: Sameer Guy II, MD 09/13/22 1500 Signed By: 09/13/22 1501 [facility] PROF CHEM 8 (BAS METB)on Anion gap [Moles/Vol] 10.3 mmol/L Normal [facility] Comment on above: Performed By: #### B MP #### [facility] [address] [place] [address] Dr. Duong Alcaraz Calcium [Mass/Vol] 9.3 mg/dL Normal 8.5-10.1 [facility] Comment on above: Performed By: #### B MP #### [facility] [address] [place] [address] [address] Duong Alcaraz Chloride [Moles/Vol] 95 mmol/L Critically low 98-107 [facility] Comment on above: Performed By: #### B MP #### [facility] [address] [place] [address] [address] Duong Alcaraz CO2 [Moles/Vol] 30.6 mmol/L Normal 21.0-32.0 [facility] Comment on above: Performed By: #### B MP #### [facility] [address] [place] [address] [address] Duong Alcaraz Creatinine [Mass/Vol] 0.69 mg/dL Normal 0.55-1.02 [facility] Comment on above: Performed By: #### B MP #### [facility] [address] [place] [address] [address] Duong Alcaraz EGFR-AF VINCENTIAN >60 Normal >=60 [facility] Comment on above: Performed By: #### B MP #### [facility] [address] [place] [address] [address] Duong Alcaraz EGFR-NON AF VINCENTIAN >60 Normal >=60 [facility] Comment on above: Performed By: #### B MP #### [facility] [address] [place] [address] [address] Duong Alcaraz Glucose [Mass/Vol] 83 mg/dL Normal 74-106 [facility] Comment on above: Performed By: #### B MP #### [facility] [address] [place] [address] [address] Duong Alcaraz Potassium [Moles/Vol] 3.9 mmol/L Normal 3.5-5.1 [facility] Comment on above: Performed By: #### B MP #### [facility] [address] [place] [address] [address] Duong Alcaraz Sodium [Moles/Vol] 132 mmol/L Critically low 136-145 [facility] Comment on above: Performed By: #### B MP #### [facility] [address] [place] [address] [address] Duong Alcaraz Urea nitrogen [Mass/Vol] 12.0 mg/dL Normal 7.0-18.0 [facility] Comment on above: Performed By: #### B MP #### [facility] [address] [place] [address] [address] Duong Alcaraz Urea nitrogen/Creatinine [Mass ratio] 17.4 mg/mg Normal [facility] Comment on above: Performed By: #### B MP #### [facility] [address] [place] [address] [address] Duong Alcaraz CMP with reflex to A1Con 04- 21-2023 Albumin [Mass/Vol] 3.9 g/dL Normal 3.5-5.7 [facility] Comment on above: Performed By: #### C BC, CMP wRFX A1C #### [facility] [address] Albumin/Globulin [Mass ratio] 1.5 {ratio} Normal [facility] Comment on above: Performed By: #### C BC, CMP wRFX A1C #### [facility] [address] ALP [Catalytic activity/Vol] 34 U/L Normal 34-104 [facility] Comment on above: Result Comment: PERF ORMED BY: [place] [address] PATHOLOGIST HOD CARRIER YAMILETH PERRY M.D. Performed By: #### C BC, CMP wRFX A1C #### [address] ALT [Catalytic activity/Vol] 14 U/L Normal 7-52 [facility] Comment on above: Performed By: #### C BC, CMP wRFX A1C #### [facility] [address] [place] [address] Anion gap [Moles/Vol] 11.1 mmol/L Normal 6.0-15.0 [facility] Comment on above: Performed By: #### C BC, CMP wRFX A1C #### [facility] [address] [place] [address] AST [Catalytic activity/Vol] 18 U/L Normal 13-39 [facility] Comment on above: Performed By: #### C BC, CMP wRFX A1C #### [facility] [address] [place] [address] [place] Bilirubin [Mass/Vol] 0.6 mg/dL Normal 0.3-1.0 [facility] Comment on above: Performed By: #### C BC, CMP wRFX A1C #### [facility] [address] Calcium [Mass/Vol] 8.4 mg/dL Low 8.6-10.3 [facility] Comment on above: Performed By: #### C BC, CMP wRFX A1C #### [facility] [address] [place] [address] [place] Chloride [Moles/Vol] 94 mmol/L Low 98-107 [facility] Comment on above: Performed By: #### C BC, CMP wRFX A1C #### [facility] [address] [place] [address] [place] CO2 [Moles/Vol] 28.0 mmol/L Normal 21.0-31.0 [facility] Comment on above: Performed By: #### C BC, CMP wRFX A1C #### [address] Creatinine [Mass/Vol] 0.68 mg/dL Normal 0.60-1.20 [facility] Comment on above: Performed By: #### C BC, CMP wRFX A1C #### [place] [address] [place] GFR/1.73 sq M.predicted MDRD (S/P/Bld) [Vol rate/Area] mL/min/{1.73_m2} Normal [facility] Comment on above: Performed By: #### C BC, CMP wRFX A1C #### [address] Globulin (S) [Mass/Vol] 2.6 g/dL Normal [facility] Comment on above: Performed By: #### C BC, CMP wRFX A1C #### [place] [address] [place] Glucose [Mass/Vol] 88 mg/dL Normal 70-100 [facility] Comment on above: Performed By: #### C BC, CMP wRFX A1C #### [facility] [address] [place] [address] [place] Potassium [Moles/Vol] 4.1 mmol/L Normal 3.5-5.1 [facility] Comment on above: Performed By: #### C BC, CMP wRFX A1C #### [place] [id number] [place] Protein [Mass/Vol] 6.5 g/dL Normal 6.4-8.9 [facility] Comment on above: Performed By: #### C BC, CMP wRFX A1C #### [facility] [address] Sodium [Moles/Vol] 129 mmol/L Low 136-145 [facility] Comment on above: Performed By: #### C BC, CMP wRFX A1C #### [facility] [address] [place] [address] [place] Urea nitrogen [Mass/Vol] 19 mg/dL Normal 7-25 [facility] Comment on above: Performed By: #### C BC, CMP wRFX A1C #### [facility] [address] Complete Blood Count Auto Di ffon 08-12-2022 Basophils (Bld) [#/Vol] 0.1 10*3/uL Normal 0.0-0.2 [facility] Comment on above: Result Comment: PERF ORMED BY: [place] [address] PATHOLOGIST HOD CARRIER YAMILETH PERRY M.D. Performed By: #### C BC, CMP wRFX A1C #### [place] [address] [place] Basophils/100 WBC (Bld) 1.3 % Normal . [facility] Comment on above: Performed By: #### C BC, CMP wRFX A1C #### [facility] [address] [place] [address] [place] Eosinophils (Bld) [#/Vol] 0.1 10*3/uL Normal 0.0-0.45 [facility] Comment on above: Performed By: #### C BC, CMP wRFX A1C #### [facility] [address] [place] [address] [place] Eosinophils/100 WBC (Bld) 1.6 % Normal . [facility] Comment on above: Performed By: #### C BC, CMP wRFX A1C #### [facility] [address] Erythrocyte distribution width (RBC) [Ratio] 13.6 % Normal 11.9-15.3 [facility] Comment on above: Performed By: #### C BC, CMP wRFX A1C #### [facility] [address] Hematocrit (Bld) [Volume fraction] 35.9 % Normal 34.0-46.4 [facility] Comment on above: Performed By: #### C BC, CMP wRFX A1C #### [address] Hemoglobin (Bld) [Mass/Vol] 12.6 g/dL Normal 11.8-15.4 [facility] Comment on above: Performed By: #### C BC, CMP wRFX A1C #### [address] Lymphocytes (Bld) [#/Vol] 0.7 10*3/uL Low 1.00-4.8 [facility] Comment on above: Performed By: #### C BC, CMP wRFX A1C #### [address] Lymphocytes/100 WBC (Bld) 14.6 % Normal . [facility] Comment on above: Performed By: #### C BC, CMP wRFX A1C #### [address] MCH (RBC) [Entitic mass] 31.8 pg Normal 24.7-34.3 [facility] Comment on above: Performed By: #### C BC, CMP wRFX A1C #### [place] [address] [place] MCV (RBC) [Entitic vol] 90.7 fL Normal 80-100 [facility] Comment on above: Performed By: #### C BC, CMP wRFX A1C #### [address] Mean Corpuscular HGB Conc 35.0 g/dL Normal 32.0-35.0 [facility] Comment on above: Performed By: #### C BC, CMP wRFX A1C #### [facility] [address] [place] [address] [place] Monocytes (Bld) [#/Vol] 0.5 10*3/uL Normal 0.0-0.8 [facility] Comment on above: Performed By: #### C BC, CMP wRFX A1C #### [facility] [address] [place] [address] [place] Monocytes/100 WBC (Bld) 10.4 % Normal . [facility] Comment on above: Performed By: #### C BC, CMP wRFX A1C #### [facility] [address] [place] [address] Neutrophils (Bld) [#/Vol] 3.7 10*3/uL Normal 1.8-7.7 [facility] Comment on above: Performed By: #### C BC, CMP wRFX A1C #### [address] Neutrophils/100 WBC (Bld) 72.1 % Normal . [facility] Comment on above: Performed By: #### C BC, CMP wRFX A1C #### [facility] [address] [place] [address] [place] NRBC% 0.0 /100{WBC} Normal 0-0.5 [facility] Comment on above: Performed By: #### C BC, CMP wRFX A1C #### [facility] [address] [place] [address] [place] Platelet mean volume (Bld) [Entitic vol] 6.2 fL Low 6.3-10.7 [facility] Comment on above: Performed By: #### C BC, CMP wRFX A1C #### [facility] [address] [place] [address] [place] Platelets (Bld) [#/Vol] 241 10*3/uL Normal 150-450 [facility] Comment on above: Performed By: #### C BC, CMP wRFX A1C #### [facility] [address] [place] [address] [place] RBC (Bld) [#/Vol] 3.96 10*6/uL Normal 3.60-5.00 [facility] Comment on above: Performed By: #### C BC, CMP wRFX A1C #### [facility] [address] WBC (Bld) [#/Vol] 5.1 10*3/uL Normal 3.8-11.6 [facility] Comment on above: Performed By: #### C BC, CMP wRFX A1C #### [facility] [address] [place] [address] [place] Dipstick and Microscopicon 0 08-12-2022 Appearance (U) Clear Normal Clear [facility] Comment on above: Order Comment: Name Collection Type:: Clean-Voided Midstream Performed By: #### A DDONUAPLUS #### [address] Bacteria,Urine None Seen Normal None Seen [facility] Comment on above: Order Comment: Name Collection Type:: Clean-Voided Midstream Performed By: #### A DDONUAPLUS #### [place] [address] [place] Bilirubin,Urine Negative Normal Negative [facility] Comment on above: Order Comment: Name Collection Type:: Clean-Voided Midstream Performed By: #### A DDONUAPLUS #### [place] [address] [place] Color (U) Yellow Normal Yellow [facility] Comment on above: Order Comment: Name Collection Type:: Clean-Voided Midstream Performed By: #### A DDONUAPLUS #### [place] [address] [place] Glucose Ql (U) Normal Normal Normal [facility] Comment on above: Order Comment: Name Collection Type:: Clean-Voided Midstream Performed By: #### A DDONUAPLUS #### [place] [address] [place] Hyaline Casts,Urine None Seen Normal 0-8 [facility] Comment on above: Order Comment: Name Collection Type:: Clean-Voided Midstream Result Comment: PERF ORMED BY: [place] [address] PATHOLOGIST HOD CARRIER YAMILETH PERRY M.D. Performed By: #### A DDONUAPLUS #### [place] [address] [place] Ketones Ql (U) Negative Normal Negative [facility] Comment on above: Order Comment: Name Collection Type:: Clean-Voided Midstream Performed By: #### A DDONUAPLUS #### [address] Leukocyte esterase Test strip Ql (U) 3+ High Negative [facility] Comment on above: Order Comment: Name Collection Type:: Clean-Voided Midstream Performed By: #### A DDONUAPLUS #### [place] [address] [place] Nitrite,Urine Negative Normal Negative [facility] Comment on above: Order Comment: Name Collection Type:: Clean-Voided Midstream Performed By: #### A DDONUAPLUS #### [place] [address] [place] Occult Blood,Urine Negative Normal Negative [facility] Comment on above: Order Comment: Name Collection Type:: Clean-Voided Midstream Result Comment: PERF ORMED BY: [place] [address] PATHOLOGIST HOD CARRIER YAMILETH PERRY M.D. Performed By: #### A DDONUAPLUS #### [place] [address] [place] pH (U) 7.0 [pH] Normal 5.0-9.0 [facility] Comment on above: Order Comment: Name Collection Type:: Clean-Voided Midstream Performed By: #### A DDONUAPLUS #### [place] [address] [place] Protein,Urine Negative Normal Negative [facility] Comment on above: Order Comment: Name Collection Type:: Clean-Voided Midstream Performed By: #### A DDONUAPLUS #### [address] RBC LM.HPF (Urine sed) [#/Area] 0 /[HPF] Normal 0-4 [facility] Comment on above: Order Comment: Name Collection Type:: Clean-Voided Midstream Performed By: #### A DDONUAPLUS #### [address] Specificy [place],Urine 1.007 Normal 1.001-1.030 [facility] Comment on above: Order Comment: Name Collection Type:: Clean-Voided Midstream Performed By: #### A DDONUAPLUS #### [address] Squamous Epithelial Cell,Urine None Seen Normal 0-2 [facility] Comment on above: Order Comment: Name Collection Type:: Clean-Voided Midstream Performed By: #### A DDONUAPLUS #### [address] Urobilinogen,Urine Normal Normal Normal [facility] Comment on above: Order Comment: Name Collection Type:: Clean-Voided Midstream Performed By: #### A DDONUAPLUS #### [address] WBC,Urine 3-4 Normal 0-4 [facility] Comment on above: Order Comment: Name Collection Type:: Clean-Voided Midstream Performed By: #### A DDONUAPLUS #### [address] MRI KNEE LT WO CONon 023 MRI [...] by: GRANT ORTEGA Date: 2022-07-04 12:13 Normal [facility] COVID/FLU/RSV RT-PCRon 04-22 SARS-CoV-2 (COVID-19) RNA CASH+probe Ql (Unsp spec) Negative [employer] Other COVID/FLU/RSV RT-PCR Negative [employer] Other CULTURE URINEon 04-14-2022 CULTURE URINE Isolate [...] F Trimethoprim/Sulfamet hoxazole <=20 S F Normal [facility] Comment on above: Performed By: #### U RCX ####[facility] [address] [place] [address]Dr. Duong Alcaraz CALCIUMon 04-01-2022 Calcium [Mass/Vol] 9.4 mg/dL Normal 8.5-10.1 [facility] Comment on above: Performed By: #### C A, CREA ####[facility] [address] [place] [address]Dr. Duong Alcaraz CREATININEon 04-01-2022 Creatinine [Mass/Vol] 0.73 mg/dL Normal 0.55-1.02 [facility] Comment on above: Performed By: #### C A, CREA ####[facility] [address] [place], [place] [address]Dr. Duong Alcaraz EGFR-AF VINCENTIAN >60 Normal >=60 [facility] Comment on above: Performed By: #### C A, CREA ####[facility] [address] [place] [address]Dr. Duong Alcaraz EGFR-NON AF VINCENTIAN >60 Normal >=60 [facility] Comment on above: Performed By: #### C A, CREA ####[facility] [address] [place] [address]Dr. Duong Alcaraz PROF CHEM 8 (BAS METB)on Anion gap [Moles/Vol] 12.5 mmol/L Normal [facility] Comment on above: Performed By: #### B MP #### [facility] [address] [place] [address] Dr. Duong Alcaraz Calcium [Mass/Vol] 8.8 mg/dL Normal 8.5-10.1 [facility] Comment on above: Performed By: #### B MP #### [facility] [address] [place] [address] [address] Duong Alcaraz Chloride [Moles/Vol] 95 mmol/L Critically low 98-107 [facility] Comment on above: Performed By: #### B MP #### [facility] [address] [address] [address] Duong Alcaraz CO2 [Moles/Vol] 27.3 mmol/L Normal 21.0-32.0 [facility] Comment on above: Performed By: #### B MP #### [facility] [address] [place] [address] [address] Duong Alcaraz Creatinine [Mass/Vol] 0.68 mg/dL Normal 0.55-1.02 [facility] Comment on above: Performed By: #### B MP #### [facility] [address] [address] [address] Duong Alcaraz EGFR-AF VINCENTIAN >60 Normal >=60 [facility] Comment on above: Performed By: #### B MP #### [facility] [address] [address] [address] Duong Alcaraz EGFR-NON AF VINCENTIAN >60 Normal >=60 [facility] Comment on above: Performed By: #### B MP #### [facility] [address] [address] [address] Duong Alcaraz Glucose [Mass/Vol] 98 mg/dL Normal 74-106 [facility] Comment on above: Performed By: #### B MP #### [facility] [address] [address] [address] Duong Alcaraz Potassium [Moles/Vol] 3.8 mmol/L Normal 3.5-5.1 [facility] Comment on above: Performed By: #### B MP #### [facility] [address] [address] [address] Duong Alcaraz Sodium [Moles/Vol] 131 mmol/L Critically low 136-145 [facility] Comment on above: Performed By: #### B MP #### [facility] [address] [address] [address] Duong Alcaraz Urea nitrogen [Mass/Vol] 14.0 mg/dL Normal 7.0-18.0 [facility] Comment on above: Performed By: #### B MP #### [facility] [address] [place] [address] Dr. Duong Alcaraz Urea nitrogen/Creatinine [Mass ratio] 20.6 mg/mg Normal [facility] Comment on above: Performed By: #### B MP #### [facility] [address] [place] [address] Dr. Duong Alcaraz BNPon 11-12-2021 Natriuretic peptide B (Bld) [Mass/Vol] 151.0 pg/mL Normal <=900.0 [facility] Comment on above: Performed By: #### C MP, BNP #### [facility] [address] [place] [address] Dr. Duong Alcaraz CBC AUTO DIFFon 11-12-2021 BASO # 0.1 103/ul Normal 0.0-0.1 [facility] Comment on above: Performed By: #### C BC ####[facility] [address] [place], [place] [address]DrClovis Alcaraz Basophils/100 WBC (Bld) 1.3 % Normal 0.2-2.0 [facility] Comment on above: Performed By: #### C BC ####[facility] [address] [place], [place] [address]DrClovis Alcaraz EO # 0.2 103/ul Normal 0.0-0.7 [facility] Comment on above: Performed By: #### C BC ####[facility] [address] [place], [place] [address]DrClovis Alcaraz Eosinophils/100 WBC (Bld) 4.4 % Normal 0.9-7.0 [facility] Comment on above: Performed By: #### C BC ####[facility] [address] [place], [place] [address]Dr. Duong Alcaraz Erythrocyte distribution width (RBC) [Ratio] 12.3 % Normal 11.0-15.0 [facility] Comment on above: Performed By: #### C BC ####[facility] [address] [place], [place] [address]DrClovis Alcaraz Hematocrit (Bld) [Volume fraction] 36.4 % Normal 36.0-48.0 [facility] Comment on above: Performed By: #### C BC ####[facility] [address] [place] [id number]. Duong Alcaraz Hemoglobin (Bld) [Mass/Vol] 12.8 g/dL Normal 12.0-16.0 [facility] Comment on above: Performed By: #### C BC ####[facility] [address] [place] [id number]. Selenastevo Kieran IG # 0.02 10e3/ul Normal 0.00-0.03 [facility] Comment on above: Performed By: #### C BC ####[facility] [address] [place] [id number]. Duong Alcaraz IG % 0.5 % Normal 0.0-0.5 [facility] Comment on above: Performed By: #### C BC ####[facility] [address] [place] [address]Dr. Duong Alcaraz LYMPH # 0.8 103/ul Critically low 1.2-3.8 [facility] Comment on above: Performed By: #### C BC ####[facility] [address] [place] [id number]. Duong Alcaraz Lymphocytes/100 WBC (Bld) 19.5 % Critically low 20.5-60.0 [facility] Comment on above: Performed By: #### C BC ####[facility] [address] [place] [id number]. Duong Alcaraz MANUAL DIFF REQ NO Normal [facility] Comment on above: Performed By: #### C BC ####[facility] [address] [place] [id number]. Duong Kieran MCH (RBC) [Entitic mass] 31.7 pg Normal 26.7-34.0 [facility] Comment on above: Performed By: #### C BC ####[facility] [address] [place] [id number]. Selenastevo Alcaraz MCHC (RBC) [Mass/Vol] 35.2 g/dL Normal 29.9-35.2 [facility] Comment on above: Performed By: #### C BC ####[facility] [address] [place] [id number]. Duong Alcaraz MCV (RBC) [Entitic vol] 90.1 fL Normal 81.0-99.0 [facility] Comment on above: Performed By: #### C BC ####[facility] [address] [place] [id number]. Duong Alcaraz MONO # 0.5 103/ul Normal 0.3-0.8 [facility] Comment on above: Performed By: #### C BC ####[facility] [address] [place] [id number]. Duong Alcaraz Monocytes/100 WBC (Bld) 12.3 % Critically high 1.7-12.0 [facility] Comment on above: Performed By: #### C BC ####[facility] [address] [place], [place] [address]Dr. Duong Alcaraz NEUT # 2.4 103/ul Normal 1.4-6.5 [facility] Comment on above: Performed By: #### C BC ####[facility] [address] [place] [id number]. Duong Alcaraz Neutrophils/100 WBC (Bld) 62.0 % Normal 43.0-75.0 [facility] Comment on above: Performed By: #### C BC ####[facility] [address] [place] [id number]. Duong Alcaraz Platelet mean volume (Bld) [Entitic vol] 7.8 fL Critically low 9.5-13.5 [facility] Comment on above: Performed By: #### C BC ####[facility] [address] [place] [id number]. Duong Alcaraz PLT 183 103/ul Normal 150-450 [facility] Comment on above: Performed By: #### C BC ####[facility] [address] [place] [id number]. Duong Kieran RBC 4.04 106/ul Critically low 4.20-5.40 [facility] Comment on above: Performed By: #### C BC ####[facility] [address] [place], [place] [address]ClDr. Duong Alcaraz WBC 3.9 103/ul Critically low 4.0-11.0 [facility] Comment on above: Performed By: #### C BC ####[facility] [address] [place], [place] [address]QaDr. Duong Alcaraz PROF 14(COMP METB)on 022 Albumin [Mass/Vol] 3.4 g/dL Normal 3.4-5.0 [facility] Comment on above: Performed By: #### C MP, BNP #### [facility] [address] [place] [address] [address] Duong Alcaraz Albumin/Globulin [Mass ratio] 0.9 {ratio} Normal [facility] Comment on above: Performed By: #### C MP, BNP #### [facility] [address] [place] [address] [address] Duong Alcaraz ALP [Catalytic activity/Vol] 33 U/L Critically low 46-116 [facility] Comment on above: Performed By: #### C MP, BNP #### [facility] [address] [place] [address] [address] Duong Alcaraz ALT [Catalytic activity/Vol] 21 U/L Normal 14-59 [facility] Comment on above: Performed By: #### C MP, BNP #### [facility] [address] [place] [address] [address] Duong Alcaraz Anion gap [Moles/Vol] 8.0 mmol/L Normal [facility] Comment on above: Performed By: #### C MP, BNP #### [facility] [address] [place] [address] [address] Duong Alcaraz AST [Catalytic activity/Vol] 26 U/L Normal 15-37 [facility] Comment on above: Performed By: #### C MP, BNP #### [facility] [address] [place] [address] [address] Duong Alcaraz Bilirubin [Mass/Vol] 0.6 mg/dL Normal 0.2-1.0 [facility] Comment on above: Performed By: #### C MP, BNP #### [facility] [address] [address] [address] Duong Alcaraz Calcium [Mass/Vol] 8.8 mg/dL Normal 8.5-10.1 [facility] Comment on above: Performed By: #### C MP, BNP #### [facility] [address] [address] [address] Duong Alcaraz Chloride [Moles/Vol] 98 mmol/L Normal 98-107 [facility] Comment on above: Performed By: #### C MP, BNP #### [facility] [address] [address] [address] Duong Alcaraz CO2 [Moles/Vol] 29.7 mmol/L Normal 21.0-32.0 [facility] Comment on above: Performed By: #### C MP, BNP #### [facility] [address] [place] [address] Dr. Duong Alcaraz Creatinine [Mass/Vol] 0.71 mg/dL Normal 0.55-1.02 [facility] Comment on above: Performed By: #### C MP, BNP #### [facility] [address] [place] [address] Dr. Duong Alcaraz EGFR-AF VINCENTIAN >60 Normal >=60 [facility] Comment on above: Performed By: #### C MP, BNP #### [facility] [address] [address] [address] Duong Alcaraz EGFR-NON AF VINCENTIAN >60 Normal >=60 [facility] Comment on above: Performed By: #### C MP, BNP #### [facility] [address] [address] [address] Duong Alcaraz Globulin (S) [Mass/Vol] 3.8 g/dL Normal [facility] Comment on above: Performed By: #### C MP, BNP #### [facility] [address] [address] [address] Duong Alcaraz Glucose [Mass/Vol] 94 mg/dL Normal 74-106 [facility] Comment on above: Performed By: #### C MP, BNP #### [facility] [address] [address] [address] Duong Alcaraz Potassium [Moles/Vol] 3.7 mmol/L Normal 3.5-5.1 [facility] Comment on above: Performed By: #### C MP, BNP #### [facility] [address] [address] [address] Duong Alcaraz Protein [Mass/Vol] 7.2 g/dL Normal 6.4-8.2 [facility] Comment on above: Performed By: #### C MP, BNP #### [facility] [address] [address] [address] Duong Alcaraz Sodium [Moles/Vol] 132 mmol/L Critically low 136-145 [facility] Comment on above: Performed By: #### C MP, BNP #### [facility] [address] [place] [address] Dr. Duong Alcaraz Urea nitrogen [Mass/Vol] 14.0 mg/dL Normal 7.0-18.0 [facility] Comment on above: Performed By: #### C MP, BNP #### [facility] [address] [address] [address] Duong Alcaraz Urea nitrogen/Creatinine [Mass ratio] 19.7 mg/mg Normal [facility] Comment on above: Performed By: #### C MP, BNP #### [facility] [address] [place] [address] Dr. Duong Alcaraz ECHOCARDIO M/2D COMPLETEon 0 11-03-2021 ECHOCARDIO M/2D COMPLETE Patient: GLENIS PEREZ Exam Date: 11/03/2021 : 1950 Gender:F Ordering : PARUL FITZPATRICK Admission #: [id number] Family : DR ANDIE FORDE . Order #: [id number] CLICK HERE TO VIEW EXAM ECHOCARDIOGRAM REPORT [...] M.D. on 11/03/2021 at 21:30 Approved by: Federcio Riley M.D. on 11/03/2021 at 21:34 [facility] BNPon 10-04-2021 Natriuretic peptide B (Bld) [Mass/Vol] 200.0 pg/mL Normal <=900.0 [facility] Comment on above: Performed By: #### B MUSEUM EXHIBIT TECHNICIAN, TSH, LIPID, CMP, T7 ####[facility] [address] [place], [place] [address]SqDr. Duong Alcaraz CBC AUTO DIFFon 10-04-2021 BASO # 0.1 103/ul Normal 0.0-0.1 [facility] Comment on above: Performed By: #### C BC #### [facility] [address] [address] [address] Duong Alcaraz Basophils/100 WBC (Bld) 1.2 % Normal 0.2-2.0 [facility] Comment on above: Performed By: #### C BC #### [facility] [address] [address] [address] Duong Alcaraz EO # 0.1 103/ul Normal 0.0-0.7 [facility] Comment on above: Performed By: #### C BC #### [facility] [address] [address] [address] Duong Alcaraz Eosinophils/100 WBC (Bld) 2.8 % Normal 0.9-7.0 [facility] Comment on above: Performed By: #### C BC #### [facility] [address] [address] [address] Duong Alcaraz Erythrocyte distribution width (RBC) [Ratio] 12.2 % Normal 11.0-15.0 [facility] Comment on above: Performed By: #### C BC #### [facility] [address] [address] [address] Duong Alcaraz Hematocrit (Bld) [Volume fraction] 37.0 % Normal 36.0-48.0 [facility] Comment on above: Performed By: #### C BC #### [facility] [address] [address] [address] Duong Alcaraz Hemoglobin (Bld) [Mass/Vol] 12.6 g/dL Normal 12.0-16.0 [facility] Comment on above: Performed By: #### C BC #### [facility] [address] [address] [address] Duong Alcaraz IG # 0.03 10e3/ul Normal 0.00-0.03 [facility] Comment on above: Performed By: #### C BC #### [facility] [address] [place] [address] Dr. Duong Alcaraz IG % 0.7 % Critically high 0.0-0.5 [facility] Comment on above: Performed By: #### C BC #### [facility] [address] [place] [address] Dr. Duong Alcaraz LYMPH # 0.7 103/ul Critically low 1.2-3.8 [facility] Comment on above: Performed By: #### C BC #### [facility] [address] [place] [address] Dr. Duong Alcaraz Lymphocytes/100 WBC (Bld) 16.0 % Critically low 20.5-60.0 [facility] Comment on above: Performed By: #### C BC #### [facility] [address] [place] [address] Dr. Duong Alcaraz MANUAL DIFF REQ NO Normal [facility] Comment on above: Performed By: #### C BC #### [facility] [address] [place] [address] Dr. Duong Alcaraz MCH (RBC) [Entitic mass] 31.4 pg Normal 26.7-34.0 [facility] Comment on above: Performed By: #### C BC #### [facility] [address] [place] [address] Dr. Duong Alcaraz MCHC (RBC) [Mass/Vol] 34.1 g/dL Normal 29.9-35.2 [facility] Comment on above: Performed By: #### C BC #### [facility] [address] [place] [address] Dr. Duong Alcaraz MCV (RBC) [Entitic vol] 92.3 fL Normal 81.0-99.0 [facility] Comment on above: Performed By: #### C BC #### [facility] [address] [place] [address] Dr. Duong Alcaraz MONO # 0.5 103/ul Normal 0.3-0.8 [facility] Comment on above: Performed By: #### C BC #### [facility] [address] [address] [address] Duong Alcaraz Monocytes/100 WBC (Bld) 11.5 % Normal 1.7-12.0 [facility] Comment on above: Performed By: #### C BC #### [facility] [address] [address] [address] Duong Alcaraz NEUT # 2.9 103/ul Normal 1.4-6.5 [facility] Comment on above: Performed By: #### C BC #### [facility] [address] [place] [address] Dr. Duong Alcaraz Neutrophils/100 WBC (Bld) 67.8 % Normal 43.0-75.0 [facility] Comment on above: Performed By: #### C BC #### [facility] [address] [place] [address] Dr. Duong Alcaraz Platelet mean volume (Bld) [Entitic vol] 8.2 fL Critically low 9.5-13.5 [facility] Comment on above: Performed By: #### C BC #### [facility] [address] [place] [address] Dr. Duong Alcaraz PLT 191 103/ul Normal 150-450 [facility] Comment on above: Performed By: #### C BC #### [facility] [address] [address] [address] Duong Alcaraz RBC 4.01 106/ul Critically low 4.20-5.40 [facility] Comment on above: Performed By: #### C BC #### [facility] [address] [place] [address] Dr. Duong Alcaraz WBC 4.3 103/ul Normal 4.0-11.0 [facility] Comment on above: Performed By: #### C BC #### [facility] [address] [place] [address] Dr. Duong Alcaraz FREE THYROXINE INDEX T7on FTI 3.01 Normal 1.30-4.50 [facility] Comment on above: Performed By: #### B MUSEUM EXHIBIT TECHNICIAN, TSH, LIPID, CMP, T7 ####[facility] [address] [place] [id number] Alcaraz T3U 35.0 % Normal 30.0-39.0 [facility] Comment on above: Performed By: #### B MUSEUM EXHIBIT TECHNICIAN, TSH, LIPID, CMP, T7 ####[facility] [address] [place] [id number] Alcaraz T4 [Mass/Vol] 8.60 ug/dL Normal 4.80-13.90 [facility] Comment on above: Performed By: #### B MUSEUM EXHIBIT TECHNICIAN, TSH, LIPID, CMP, T7 ####[facility] [address] [place] [address]DrClovis Alcaraz GLYCOHEMOGLOBIN A1Con 2021 ADA RECOMMENDATION SEE BELOW Normal [facility] Comment on above: Result Comment: ADA RECOMMENDED LIMIT 4.0 - 6.0 ADA THERAPEUTIC TARGET < 7.0 ACTION SUGGESTED > 7.0 Performed By: #### A 1C #### [facility] [address] [place] [address] [address] Duong Alcaraz Glucose [Mass/Vol] 108 mg/dL Normal [facility] Comment on above: Performed By: #### A 1C #### [facility] [address] [address] [address] Duong Alcaraz HbA1c (Bld) [Mass fraction] 5.4 % Normal 4.5-6.2 [facility] Comment on above: Performed By: #### A 1C #### [facility] [address] [place] [address] [address] Duong Alcaraz IRONon 10-04-2021 Iron [Mass/Vol] 93.0 ug/dL Normal 50.0-170.0 [facility] Comment on above: Performed By: #### I SHARRON ####[facility] [address] [place] [address]Dr. Duong Alcaraz LIPID PROFILEon 10-04-2021 CHOL-HDL RATIO NORM SEE BELOW Normal [facility] Comment on above: Result Comment: 3.3 - 4.4 LOW RISK 4.4 - 7.1 AVERAGE RISK 7.1 - 11.0 MODERATE RISK >11.0 HIGH RISK Performed By: #### B MUSEUM EXHIBIT TECHNICIAN, TSH, LIPID, CMP, T7 ####[facility] [address] [place], [place] [address]Yq. Duong Alcaraz Cholesterol [Mass/Vol] 182 mg/dL Normal <=200 [facility] Comment on above: Performed By: #### B MUSEUM EXHIBIT TECHNICIAN, TSH, LIPID, CMP, T7 ####[facility] [address] [place] [id number]. Duong Alcaraz Cholesterol in HDL [Mass/Vol] 69 mg/dL Critically high 40-60 [facility] Comment on above: Performed By: #### B MUSEUM EXHIBIT TECHNICIAN, TSH, LIPID, CMP, T7 ####[facility] [address] [place] [id number]. Duong Alcaraz Cholesterol in LDL [Mass/Vol] 107.6 mg/dL Normal [facility] Comment on above: Performed By: #### B MUSEUM EXHIBIT TECHNICIAN, TSH, LIPID, CMP, T7 ####[facility] [address] [place] [id number]. Duong Alcaraz Cholesterol.total/C holesterol in HDL [Mass ratio] 2.6 {ratio} Normal [facility] Comment on above: Performed By: #### B MUSEUM EXHIBIT TECHNICIAN, TSH, LIPID, CMP, T7 ####[facility] [address] [place] [id number]. Duong Alcaraz HDL NORMAL > or = 60 mg/dl - LO W CARDIOVASCULAR RISK <40 mg/dl - HIGH CARDIOVASCULAR RISK Normal [facility] Comment on above: Performed By: #### B MUSEUM EXHIBIT TECHNICIAN, TSH, LIPID, CMP, T7 ####[facility] [address] [place] [id number]. Duong Alcaraz LDL CALC NORMAL SEE BELOW Normal [facility] Comment on above: Result Comment: <100 mg/dl OPTIMAL 100 - 129 mg/dl NEAR OR ABOVE OPTIMAL 130 - 159 mg/dl BORDERLINE HIGH 160 - 189 mg/dl HIGH >190 mg/dl VERY HIGH Performed By: #### B MUSEUM EXHIBIT TECHNICIAN, TSH, LIPID, CMP, T7 ####[facility] [address] [place], [place] [address]WoDr. Duong Alcaraz Triglyceride [Mass/Vol] 27 mg/dL Normal <=150 [facility] Comment on above: Performed By: #### B MUSEUM EXHIBIT TECHNICIAN, TSH, LIPID, CMP, T7 ####[facility] [address] [place], [place] [address]OvDr. Duong Alcaraz VLDL CALC 5.4 mg/dL Normal [facility] Comment on above: Performed By: #### B MUSEUM EXHIBIT TECHNICIAN, TSH, LIPID, CMP, T7 ####[facility] [address] [place] [id number]. Duong Alcaraz PROF 14(COMP METB)on 022 Albumin [Mass/Vol] 3.5 g/dL Normal 3.4-5.0 [facility] Comment on above: Performed By: #### B MUSEUM EXHIBIT TECHNICIAN, TSH, LIPID, CMP, T7 #### [facility] [address] [place] [address] [address] Duong Alcaraz Albumin/Globulin [Mass ratio] 1.0 {ratio} Normal [facility] Comment on above: Performed By: #### B MUSEUM EXHIBIT TECHNICIAN, TSH, LIPID, CMP, T7 #### [facility] [address] [place] [address] Dr. Duong Alcaraz ALP [Catalytic activity/Vol] 34 U/L Critically low 46-116 [facility] Comment on above: Performed By: #### B MUSEUM EXHIBIT TECHNICIAN, TSH, LIPID, CMP, T7 #### [facility] [address] [place] [address] [address] Duong Alcaraz ALT [Catalytic activity/Vol] 22 U/L Normal 14-59 [facility] Comment on above: Performed By: #### B MUSEUM EXHIBIT TECHNICIAN, TSH, LIPID, CMP, T7 #### [facility] [address] [place] [address] [address] Duong Alcaraz Anion gap [Moles/Vol] 12.3 mmol/L Normal [facility] Comment on above: Performed By: #### B MUSEUM EXHIBIT TECHNICIAN, TSH, LIPID, CMP, T7 #### [facility] [address] [place] [address] Dr. Duong Alcaraz AST [Catalytic activity/Vol] 19 U/L Normal 15-37 [facility] Comment on above: Performed By: #### B MUSEUM EXHIBIT TECHNICIAN, TSH, LIPID, CMP, T7 #### [facility] [address] [place] [address] [address] Duong Alcaraz Bilirubin [Mass/Vol] 0.6 mg/dL Normal 0.2-1.0 [facility] Comment on above: Performed By: #### B MUSEUM EXHIBIT TECHNICIAN, TSH, LIPID, CMP, T7 #### [facility] [address] [place] [address] Dr. Duong Alcaraz Calcium [Mass/Vol] 8.5 mg/dL Normal 8.5-10.1 [facility] Comment on above: Performed By: #### B MUSEUM EXHIBIT TECHNICIAN, TSH, LIPID, CMP, T7 #### [facility] [address] [place] [address] Dr. Duong Alcaraz Chloride [Moles/Vol] 101 mmol/L Normal 98-107 [facility] Comment on above: Performed By: #### B MUSEUM EXHIBIT TECHNICIAN, TSH, LIPID, CMP, T7 #### [facility] [address] [place] [address] Dr. Duong Alcaraz CO2 [Moles/Vol] 25.3 mmol/L Normal 21.0-32.0 [facility] Comment on above: Performed By: #### B MUSEUM EXHIBIT TECHNICIAN, TSH, LIPID, CMP, T7 #### [facility] [address] [place] [address] Dr. Duong Alcaraz Creatinine [Mass/Vol] 0.64 mg/dL Normal 0.55-1.02 [facility] Comment on above: Performed By: #### B MUSEUM EXHIBIT TECHNICIAN, TSH, LIPID, CMP, T7 #### [facility] [address] [place] [address] Dr. Duong Alcaraz EGFR-AF VINCENTIAN >60 Normal >=60 [facility] Comment on above: Performed By: #### B MUSEUM EXHIBIT TECHNICIAN, TSH, LIPID, CMP, T7 #### [facility] [address] [place] [address] Dr. Duong Alcaraz EGFR-NON AF VINCENTIAN >60 Normal >=60 [facility] Comment on above: Performed By: #### B MUSEUM EXHIBIT TECHNICIAN, TSH, LIPID, CMP, T7 #### [facility] [address] [place] [address] Dr. Duong Alcaraz Globulin (S) [Mass/Vol] 3.4 g/dL Normal [facility] Comment on above: Performed By: #### B MUSEUM EXHIBIT TECHNICIAN, TSH, LIPID, CMP, T7 #### [facility] [address] [address] [address] Duong Alcaraz Glucose [Mass/Vol] 91 mg/dL Normal 74-106 [facility] Comment on above: Performed By: #### B MUSEUM EXHIBIT TECHNICIAN, TSH, LIPID, CMP, T7 #### [facility] [address] [place] [address] Dr. Duong Alcaraz Potassium [Moles/Vol] 4.6 mmol/L Normal 3.5-5.1 [facility] Comment on above: Performed By: #### B MUSEUM EXHIBIT TECHNICIAN, TSH, LIPID, CMP, T7 #### [facility] [address] [place] [address] Dr. Duong Alcaraz Protein [Mass/Vol] 6.9 g/dL Normal 6.4-8.2 [facility] Comment on above: Performed By: #### B MUSEUM EXHIBIT TECHNICIAN, TSH, LIPID, CMP, T7 #### [facility] [address] [place] [address] Dr. Duong Alcaraz Sodium [Moles/Vol] 134 mmol/L Critically low 136-145 [facility] Comment on above: Performed By: #### B MUSEUM EXHIBIT TECHNICIAN, TSH, LIPID, CMP, T7 #### [facility] [address] [place] [address] Dr. Duong Alcaraz Urea nitrogen [Mass/Vol] 11.0 mg/dL Normal 7.0-18.0 [facility] Comment on above: Performed By: #### B MUSEUM EXHIBIT TECHNICIAN, TSH, LIPID, CMP, T7 #### [facility] [address] [place] [address] Dr. Duong Alcaraz Urea nitrogen/Creatinine [Mass ratio] 17.2 mg/mg Normal [facility] Comment on above: Performed By: #### B MUSEUM EXHIBIT TECHNICIAN, TSH, LIPID, CMP, T7 #### [facility] [address] [place], [place] [address] Dr. Duong Alcaraz TSHon 10-04-2021 TSH 1.568 uIU/mL Normal 0.358-3.740 [facility] Comment on above: Performed By: #### B MUSEUM EXHIBIT TECHNICIAN, TSH, LIPID, CMP, T7 ####[facility] [address] [place], [place] [address]AvDr. Duong Alcaraz TSH RANGE SEE BELOW Normal [facility] Comment on above: Result Comment: <0.3 4 UIU/ml HYPERTHYROID 0.34-5.60 UIU/ml EUTHYROID >5.60 UIU/ml HYPOTHYROID Performed By: #### B MUSEUM EXHIBIT TECHNICIAN, TSH, LIPID, CMP, T7 ####[facility] [address] [place], [place] [address]ItDr. Duong Alcaraz MG MAMM SCREEN 3D ALONSO CADon 09-15-2021 MG MAMM SCREEN 3D ALONSO CAD Patient: GLENIS PEREZ Exam Date: 09/15/2021 : 1950 Gender:F Ordering : DR ANDIE FORDE . Admission #: [id number] Family : Order #: [id number] CLICK HERE TO VIEW EXAM RADIOLOGY REPORT [...] Treatments None Family Cancers None LOCATION: [facility] BREAST COMPOSITION: Heterogeneously dense,which may obscure [...] Ortega M.D. on 09/15/2021 at 15:08 Normal [facility] XR DEXA BONE DENSITYon 09-15 XR [...] by: GRANT ORTEGA Date: 2021-09-15 08:58 Normal [facility] Cardiovascular Lab Reporton 11-12-2020 Cardiovascular Lab Report [facility] Patient Name: [facility] MR #: [id number] Physician: Doe Velez Department of M.D. Medicine Service Date: 11/11/2020 Division of Birthdate: 1950 Cardiology Room #: [facility] Cardiovascular Services [place] [address] Cardiovascular Laboratory Report CLINICAL PRESENTATION: The patient [...] left radial artery. Using ultrasound guidance, a 6-Bangladeshi Terumo Glidesheath slender was placed in the left radial artery. The radial anti-vasospasm cocktail of nitroglycerin 200 mcg and verapamil 2.5 mg was administered through the sheath. All catheter exchanges were made over the Magic Torque guidewire. A 5-Bangladeshi JR4 used to engage the right coronary artery. A 5-Bangladeshi JL4 used to engage the left main [...] Velez M.D. Date Trans: 11/12/2020 05:34 A/viri [id number] cc: Siddharth Nolasco MD Dept Of Cardiology [address] [facility] [address] Andie Forde M.D. [address] [facility] [address] Parul Fitzpatrick, POISER [address] [facility] [address] [facility] [address] Normal [facility] Formson 08-26-2020 Forms [id number] .[id number]:127 Normal [facility] Physician Referralon 021 Physician Referral [id number] .[id number]:127 Normal [facility] Ambulatory Clinical Summaryo n 08-25-2020 Ambulatory Clinical Summary {[id number]}CD:[id number] Gaviota Griffin [facility] Patient Educationon 08-26-19 Patient Education Urinary [...] Document Reviewed: 05/18/2012 ExitCare? Patient Information ?2013 [employer]. [facility] Urology Office/Clinic Noteon 08-25-2020 Urology Office/Clinic Note Chief Complaint New patient cystocele This 69-year-old female is being scheduled for cystocele repair by her facilities engineering manager. Requested stent placement to aid in dissection [...] Urnls Dip Stick Auto w/o Microscopy POC [id number] Urology Procedure Order 2. UTI (urinary tract infection) (N39.0: Urinary tract infection, site not specified) UA today appears to be infected with positive nitrate. Will start pt. on Cipro 500mg bid, #6. Script sent to [facility] in [place]. Ordered: Urology Procedure Order 3. Microscopic hematuria (R31.29: Other microscopic hematuria) UA today - trace intact. Ordered: Urology Procedure Order Orders: ciprofloxacin, 500 mg = 1 tab(s), Oral, q12hr, X 3 day(s), # 6 tab(s), Refills(s) 0, Pharmacy: [facility] 1155, 160, cm, 08/25/20 11:31:00 EDT, Height/Length Dosing, 75.6, kg, 08/25/20 11:31:00 EDT, Weight Dosing I have reviewed the previous health record information and history for this pt. from Dr. Gonzalez. Follow-up With When Contact Information Carlos Alvarado MD, Dallin Malik, URO [address] [place] [id number]- Additional Instructions: Patient Education Urinary Tract Infection I, Negra Richmond (more content not included)... Normal [facility] Comment on above: Result Comment: Elec tronically Signed By: Dallin Gonzalez Jr., MD\.br\Date and Time Signed: 08/25/20 13:08 EDT\.br\Electronically Co-Signed By: Negra Mccullough MA\.br\Date and Time Co-Signed: 08/25/20 11:50 EDT Vital Signs Date Time Vital Sign Value Performing Clinician Facility 03-20-2024 11:16-0500 Body height 160 cm Ernie Miller DO Work Phone: [facility] 03-20-2024 11:16-0500 Body mass index (BMI) [Ratio] 29.23 kg/m2 Ernie Miller DO Work Phone: [facility] 03-20-2024 11:16-0500 Body weight 74.84 kg Ernie Andrzej DO Work Phone: [facility] [employer] 03-20-2024 11:16-0500 Diastolic blood pressure 74 mm[Hg] Ernie Andrzej DO Work Phone: [facility] 03-20-2024 11:16-0500 Heart rate 102 /min Ernie Andrzej DO Work Phone: [facility] 03-20-2024 11:16-0500 SaO2% (BldA) [Mass fraction] 98 % Ernie Andrzej DO Work Phone: [facility] [employer] 03-20-2024 11:16-0500 Systolic blood pressure 110 mm[Hg] Ernie Andrzej DO Work Phone: [facility] 02-27-2023 10:15-0500 Body height 161.29 cm Tomás [employer] Other [employer] Other 11-28-2022 11:00-0400 Body height 161.29 cm Tomás Elma Other [employer] Other 11-28-2022 11:00-0400 Body mass index (BMI) [Ratio] 27.55 kg/m2 Tomás Elma Other [employer] Other 11-28-2022 11:00-0400 Body weight 71.67 kg Tomás Elma Other [employer] Other 09-28-2022 13:15-0400 Body height 161.29 cm Tomás Elma Other [employer] Other 09-28-2022 13:15-0400 Body mass index (BMI) [Ratio] 27.9 kg/m2 Tomás Elma Other [employer] Other 09-28-2022 13:15-0400 Body weight 72.58 kg Tomás Wills Other [employer] Other 04-22-2022 16:30-0500 Body height 161.29 cm Linda Hall Other [employer] Other 04-22-2022 16:30-0500 Body mass index (BMI) [Ratio] 27.02 kg/m2 Linda Hall Other [employer] Other 04-22-2022 16:30-0500 Body temperature 96.4 [degF] Linda Hall Other [employer] Other 04-22-2022 16:30-0500 Body weight 70.31 kg Linda Hall Other [employer] Other 04-22-2022 16:30-0500 Respiratory rate 18 /min Linda Hall Other [employer] Other 04-22-2022 16:30-0500 SaO2% (BldA) [Mass fraction] 98 % Linda Hall Other [employer] Other Encounters Encounter Date Encounter Type Care Provider Facility Start: 03-20-2024 End: 03-20-2024 Bamboo flowsheet Ernie Andrzej DO Work Phone: [facility] Start: 03-20-2024 End: 03-20-2024 Bamboo flowsheet Ernie Andrzej DO Work Phone: [facility] Start: 03-20-2024 End: 03-20-2024 Office outpatient visit 25 minutes Ernie Miller DO Work Phone: [employer] [facility] Comment on above: RICK (obstructive sle ep apnea) (Primary Dx); Hypersomnia; Snoring Start: 03-20-2024 End: 03-20-2024 ambulatory ERNIE MILLER Not Available Start: 01-08-2024 End: 01-08-2024 ambulatory TATIANNA SUMIT [facility] Start: 11-22-2023 End: 11-22-2023 ambulatory FRANK E RINKES Not Available Start: 07-13-2023 End: 07-13-2023 ambulatory FRANK E RINKES Not Available Start: 04-04-2023 End: 04-04-2023 ambulatory FRANK E RINKES Not Available Start: 02-27-2023 Office outpatient vi sit 15 minutes Tomás Wills [facility] Start: 02-27-2023 End: 02-27-2023 ambulatory Tomás Wills [employer] Other Start: 01-18-2023 End: 01-18-2023 ambulatory Tomás Wills Other [employer] Other Start: 01-18-2023 Telephone encounter Tomás Wills [facility] Start: 12-28-2022 End: 12-28-2022 ambulatory Tomás Wills Other [employer] Other Start: 12-28-2022 Telephone encounter Tomás Wills [facility] Start: 11-28-2022 End: 11-28-2022 ambulatory Tomás Wills Other [employer] Other Start: 11-28-2022 Postop follow up vis it related to original px Tomás Wills [facility] Start: 09-28-2022 End: 09-28-2022 ambulatory Tomás Wills Other [employer] Other Start: 09-28-2022 Postop follow up vis it related to original px Tomás Wills [facility] Start: 09-23-2022 End: 09-23-2022 ambulatory Tomás Wills Other [employer] Other Start: 09-23-2022 Telephone encounter Tomás CHRISTENSEN [facility] Start: 09-13-2022 End: 09-13-2022 ambulatory Andie Forde Facility:[facility] Start: 08-24-2022 End: 08-24-2022 ambulatory Tomás Wills Facility:[facility] Start: 08-19-2022 End: 08-20-[address] ANDIE FORDE . Facility:[facility] Start: 08-12-2022 End: 08-12-2022 ambulatory Tomás Wills Facility:[facility] Start: 07-04-2022 End: 07-05-[address] ANDIE FORDE . Facility:[facility] Start: 06-22-2022 End: 06-23-[address] ANDIE FORDE . Facility:[facility] Start: 04-22-2022 End: 04-22-2022 ambulatory Linda Hall Other [employer] Other Start: 04-22-2022 Office outpatient ne w 30 minutes Linda Hall [facility] Start: 04-11-2022 End: 04-11-[address] LEXIE [...] 11-12-2020 ambulatory DOE VELEZ Facility:[facility] Plan of Treatment Date Care Activity Detail Author Start: 03-20-2024 End: 03-20-2024 Patient encounter procedure 03/20/2024 11:15 AM EST Office Visit [facility] [address] [place] [id number] Ernie Miller DO [address] [place], [place] [id number] [facility] Comment on above: Arrived Start: 12-24-2023 Influenza vaccination Influenza Vacc ine (#1) [facility] Start: 2013 Pneumococcal Vaccine : 65+ Years (1 of 1 - PCV) Pneumococcal Vaccine: 65+ Years (1 of 1 - PCV) [facility] Start: 1950 Screening for malign ant neoplasm of colon [facility] Immunizations Immunization Date Immunization Notes Care Provider Fa cility 01-26-2023 influenza virus vacc ine, unspecified formulation Ernie Miller DO Work Phone: [facility] Healthcare Payers Date Payer Category Payer Self-pay 2022 Other GENERIC OTHER Vt mber [id number] 2013 Medicare MEDICARE [id number] 1959 Medicare [id number] 1959 Unknown [id number] 1950 Unknown [id number] 2.16.840.1.922903.3.579.2.647 1950 Unknown [id number] 2.16.840.1.025721.3.579.2.593 1948 Unknown [id number] 2.16.840.1.620200.3.579.2.593 1948 Unknown [id number] 2.16.840.1.199409.3.579.2.593 1948 Unknown [id number] 2.16.840.1.825129.3.579.2.593 1948 Unknown [id number] 2.16.840.1.584764.3.579.2.593 1948 Unknown [id number] 2.16.840.1.355538.3.579.2.593 1948 Unknown [id number] 2.16.840.1.959387.3.579.2.593 1948 Unknown [id number] 2.16.840.1.971423.3.579.2.593 1948 Unknown [id number] 2.16.840.1.564218.3.579.2.593 1948 Unknown [id number] 2.16.840.1.745999.3.579.2.593 1948 Unknown [id number] 2.16.840.1.083072.3.579.2.593 1948 Unknown [id number] 2.16.840.1.835388.3.579.2.593 1948 Unknown [id number] 2.16.840.1.290638.3.579.2.1259 1948 Unknown [id number] 2.16.840.1.955665.3.579.2.1259 1948 Unknown [id number] 2.16.840.1.180788.3.579.2.1259 1948 Unknown [id number] 2.16.840.1.601246.3.579.2.1259 Unknown [id number] 2.16.840.1.043035.19 Unknown [id number] 2.16.840.1.468798.3.579.2.531 Unknown [id number] 2.16.840.1.527928.3.579.2.531 Unknown [id number] 2.16.840.1.819084.3.579.2.531 Unknown [id number] 2.16.840.1.500915.3.579.2.531 Social History Date Type Detail Facility Start: 04-04-2023 End: 03-20-2024 Sex Assigned At [facility] [employer] Other Start: 11-30-2022 End: 03-20-2024 Tobacco smoking status NHIS Never smoked tobacco [facility] Start: 04-04-2023 End: 03-20-2024 History of Social function [facility] Start: 1950 Sex assigned at Not on file N [facility] Start: 03-20-2024 Tobacco use and exposure Smokeless tobacco non-user [facility] Clinical Notes 04-22-2022 to 03-20-2024 Ernie Miller DO - 03/20/2024 11:15 AM EST Note Date & Type Note Facility 03-20-2024 History of Present illness Narrative Images from the original note were not included. Chief Complaint Patient presents with Sleep Apnea Subjective Glenis Perez, 73 y.o., female HPI The patient is wearing her machine nightly. She denies any issues with her machine. She states that she is sleeping well. NO issues with the mask or the machine. She is feeling rested. She can take a little rest after supper. She has been having bladder infections about monthly and is seeing the urologist. Past Medical History: Diagnosis Date Arthritis Cystocele with prolapse HTN (hypertension) (CMS/HCC) Vaginal prolapse Past Surgical History: Procedure Laterality Date HYSTERECTOMY tvh OTHER SURGICAL HISTORY laser surgery, unspecified TOTAL KNEE ARTHROPLASTY Left TUBAL LIGATION WRIST SURGERY ext/fix Rt Wrist Family History Problem Relation Name Age of Onset Diabetes Mother Hypertension Mother Heart disease Mother Heart disease Father Heart disease Other siblings Hypertension Other siblings Social History Tobacco Use Smoking status: Never Smokeless tobacco: Never Substance Use Topics Alcohol use: Not on file Allergies: Levofloxacin, Penicillins, and Tetracycline General: No fever or chills HEENT: No nasal congestion or runny nose Pulmonary: No shortness of breath or cough Cardiovascular: No chest pain or palpitations GI: No nausea or vomiting : No dysuria or hematuria Musculoskeletal: No new aches or pains or muscle weakness Infectious: no recurrent fevers or infections Dermatologic: No rashes or skin lesions Neurologic: No new headaches or dizziness Vitals: 03/20/24 1116 BP: 110/74 Pulse: 102 SpO2: 98% Body mass index is 29.23 kg/m . weight: 165 lb Neurologic exam: General: Normal body habitus, cooperative, pleasant Mental status: Awake, alert to person, place and time. Recent and remote memory are intact. Attention and concentration are normal. Fund of knowledge is appropriate for level of education. HEENT: NC/AT Cranial nerves: CN II: Visual mascorro full to confrontation. No loss of vision CN III, IV, : pupils equal round and reactive to light. Extraocular movements intact. No ptosis present. CN V: Facial sensation is normal. CN VII: Full and symmetric facial movement. CN VIII: Hearing is normal CN IX and X: Palate elevates symmetrically. CN XI: Shoulder shrug is normal bilaterally. CN XII: Tongue is midline without atrophy or fasciculation. Speech: Clear and fluent no aphasia or dysarthria Pronator drift: Negative bilateral upper extremity Coordination: Intact, no signs of dysmetria Good finger to nose and rapid alternating movements Sensory: Sensation is intact to light, temperature and vibratory touch throughout four extremities. Motor: LUE 5/5 RUE 5/5 LLE 5/5 RLE 5/5 Tone: Physiologic, no tremor, bradykinesia or rigidity DTR: Bilateral Biceps 2/4 Bilateral BR 2/4 Bilateral Patellar 2/4 No spasticity Gait: Normal to casual gait Romberg's Negative Review and summary of old records: Assessment/Plan Diagnoses and all orders for this visit: RICK (obstructive sleep apnea) Hypersomnia Snoring 73-year-old female with a mild obstructive sleep apnea with hypoxia with daytime hypersomnolence and snoring. Patient has a AHI of 11.4. She is doing well with her CPAP machine and is compliant with it. She gets great benefit and it does control her sleepiness. She does still sometimes take a nap after dinner. She has beautifully compliant with the machine wearing it 100 percent of the time greater than 4 hours with an average nightly usage of 7 hours and 58 minutes and residual AHI of 3.9. Her [place] Sleepiness scale is a 11. Well and she needs a order for new supplies sent over. Plan: Compliance was reviewed and she was compliant. Her epworth's sleepines scale and an 11 The patient was counseled on proper sleep hygiene and adequate hours of sleep. The patient was counseled on the risks of stroke, [place], and sudden with RICK, along with the need for compliance with the CPAP/BiPAP treatment. The diagnosis was all discussed with the patient. All questions were answered and they agreed with the treatment plan. Patient will call if there are any new issues or questions. Pt has been fully educated on their diagnosis, treatment options, follow up plan, and return instructions Return to clinic: 3 mon documented in this encounter [facility] 01-08-2024 Note Continue carvedilol currently remains stable. [facility] 01-08-2024 Note Currently no concern ing symptoms and patient denies any palpitations. Continue carvedilol 12.5 mg twice daily. [facility] 01-08-2024 Note Hypertension is well -controlled currently. Continue carvedilol and hydrochlorothiazide Renal function and electrolytes are normal She does admit to occasional lightheadedness with low blood pressure denies any syncope or near syncope. Admits that typical days she does not hydrate well enough and likes to drink ice tea therefore we discussed adequate hydration. [facility] 01-08-2024 Note UTP CARDIOLOGY PROGR ESS [...] and likes t (more content not included)... [facility] 01-08-2024 Note Pt here for a [...] All other systems reviewed and are negative. [facility] 02-27-2023 Evaluation note Encounter Date Diagnosis [...] from surgery. 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 Activity as tolerated. Call with questions/anuradha rns. Provided AAOS hand out on hip conditioning and IT band exercises. [employer] Other 09-06-2023 Evaluation note* Encounter Date Diagnosis Assessment Notes Treatment Notes Treatment Clinical Notes Dec, History of total left knee replacement (ICD-10 - Z96.652) [employer] Other 08-07-2023 Evaluation note* Encounter Date Diagnosis [...] total left knee replacement (ICD-10 - Z96.652) [employer] Other 06-07-2023 Evaluation note* Encounter Date Diagnosis [...] meniscus of left knee (ICD-10 - M23.307) [employer] Other 06-02-2023 Evaluation note* Encounter Date Diagnosis Assessment Notes Treatment Notes Treatment Clinical Notes Sep, Primary osteoarthritis of left knee (ICD-10 - M17.12) [employer] Other 03-01-2023 NotePROCEDURE: XR KNEE LT 4V or > COMPARISON: 04/09/2021 HISTORY: Pain of left knee joint FINDINGS: BONES:No acute fracture or dislocation. 7 mm osteochondral injury medial femoral condyle. Tricompartmental osteoarthropathy most significant in the medial compartment SOFT TISSUES:Negative. No visible soft tissue swelling. EFFUSION:None visible. OTHER: Negative. IMPRESSION: Osteochondral injury medial femoral condyle Electronically authenticated by: LISET MEZA Date: 2022-06-22 17:46[facility]12-30-2022 Evaluation note* Encounter Date Diagnosis Assessment [...] treatment plan Mar, Headache (ICD-10 - R51.9) [employer] Other Evaluation noteNo InformationNort QCoefficient Other Evaluation note* Diagnosis RICK (obstructive sleep apnea)- Primary Obstructive sleep apnea (adult) (pediatric) Hypersomnia Hypersomnia, unspecified Snoring Other dyspnea and respiratory abnormality documented in this [facility] - [facility]* Type Description Date Medical History hx of hypertension Surgical History tubiligation Surgical History Eva Tooth Extraction Hospitalization History vaginal child x 3 [employer] Other History general Narrative - Reported* Type Description Date Medical History hx of hypertension Medical History PVC Medical History osteoarthritis of the left knee Surgical History tubiligation Surgical History Eva Tooth Extraction Hospitalization History vaginal child x 3 [employer] Other History general Narrative - Reported* Type Description Date Medical History hx of hypertension Medical History PVC Medical History osteoarthritis of the left knee Surgical History tubiligation Surgical History Eva Tooth Extraction Surgical History left total knee arthroplasty Hospitalization History vaginal child x 3 [employer] Other Summary Purpose Family History No Family [...] and content) DATE CREATED AUTHOR 09/24/2020 Elias Bivarus [facility] DATE CREATED AUTHOR AUTHOR'S ORGANIZ ATION 11/18/2020 [facility] DATE CREATED AUTHOR AUTHOR'S ORGANIZ ATION 08/26/2022 [facility] DATE CREATED AUTHOR AUTHOR'S ORGANIZ ATION 05/13/2023 [facility] DATE CREATED AUTHOR AUTHOR'S ORGANIZ ATION 01/09/2024 [facility] DATE CREATED AUTHOR AUTHOR'S ORGANIZ ATION 03/23/2024 [facility] EPIC REASON FOR VISIT (unrecogniz ed section and content) Reason Comments Sleep Apnea Care Teams (unrecognized sec tion and content) Cost Control Specialist Relationship Specialty Start Date End Date Andie Forde MD [address] [place] [address] PCP - General Family Medicine 11/30/22 Cost Control Specialist Relationship Specialty Start Date End Date Andie Forde MD [address] [place] [address] PCP - General Family Medicine 11/30/22 FOR RECORDS PERTAINING TO PATIENTS WHO ARE [...] BE BASED ON THE PRIMARY CLINICAL RECORDS. [facility] [employer] [facility]. provides no warranty or guarantee of the accuracy or completeness of information in this [id number]
--- OUTSIDE RECORDS SUMMARY | 2024-05-03 12:15 | XMS_ITS | CCD ---
Author Organization [facility] Care Team Providers Care Mds Nurse Name Role Phone DOE VELEZ Attending Unavailable [...] Unavailable Andie Forde MD Primary Care Provider [phone] FRANK VILLARREAL E Attending Unavailable RINJULIAN FRANK E Attending Unavailable RINJULIAN FRANK E Attending Unavailable ERNIE MILLER Attending Unavailable Allergies Allergy Classification Reported Allergen(s) Allergy Type Date of Onset Reaction(s) Facility Penicillins (antibiotic) (1 source) Penicillin Drug Allergy 1 [facility] Repository Tetracyclines (antibiotic) (1 source) Tetracyclines Drug Allergy 1 [facility] Repository (7 sources) Penicillin Drug Allergy Unknown [employer] Other (11 sources) Tetracycline; Translations: [TETRACYCLINE] Drug Allergy 2 Carlee celis [facility] Repository (2 sources) Penicillins; Translations: [PENICILLINS] Drug allergy (disorder) 4 [facility] Repository (1 source) Tetracycline Drug Allergy 4 [facility] Repository (1 source) Penicillins Drug allergy (disorder) 3 [facility] Repository (1 source) Tetracycline Drug Allergy 3 [facility] Repository (3 sources) Penicillins Drug Allergy 2 [facility] Healthcare (2 sources) levoFLOXacin Drug Allergy 4 [facility] Healthcare Medications Current Medications Medication [...] 12.5 mg oral tablet (10 sources) alpha-Adrenergic Ceasrio, beta-Adrenergic Cesario take 1 tablet by mouth [...] UNIT (7 sources) [facility] daily Vitamin D 1000 UNIT 1 [...] Start: 09-09-2022 take 1 capsule by mo [facility] every twelve hours Clindamycin HCl 300 MG [...] Range Facility Office Visiton 01-08-2024 Follow-up visit [id number] Glenis Perez 1950 F Date Provider Department Center 01/08/2024 [facility]-TATIANNA ARANA Family History Problem Relation Age of Onset Heart attack Mother Coronary artery disease Mother Other Brother Family Status - Relation Status Age at Mother Brother Level of Service:25228 [place] OFFICE/OUTPATIENT ESTABLISHED SF MDM 10 MIN Normal [facility] XR knee LT 2Von 02-27-2023 XR knee LT 2V [facility] [address] [place] [address] XRay Report Signed Patient: Glenis Perez MR#: [id number] 42 : 1950 Acct:[id number] Age/Sex: 72 / F ADM Date: 02/27/23 Loc: [facility] Room: Type: [facility] Attending Dr: Tomás Wills DO Copies to: [...] Raúl Woo M.D.02/27/2023 3:08 PM Dictation Location: [place] [address] Transcribed By: [facility] 02/27/23 1508 Dictated By: Raúl Woo DO 02/27/23 1508 Signed By: 02/27/23 1508 Normal [facility] XR knee LT 2V [facility] [employer] Other XR knee LT 2V [facility] [employer] Other XR knee LT 2V [address] [place] [address] [employer] Other XR knee LT 2V [place] [address] [facility] [employer] Other XR knee LT 2V XRay Report Michie [employer] Other XR knee LT 2V Signed Michie Hunan [employer] Other XR knee LT 2V Patient: Glenis Perez MR#: [id number] [facility] [employer] Other XR knee LT 2V 42 [facility] [employer] Other XR knee LT 2V : 1950 Acct:[id number] [employer] Other XR knee LT 2V Age/Sex: 72 / F ADM Date: 02/27/23 [employer] Other XR knee LT 2V Loc: [facility]: [facility] [employer] Other XR knee LT 2V Attending Dr: Tomás Wills DO [employer] Other XR knee LT 2V Copies to: Tomás Wills DO [employer] Other XR knee LT 2V Ordering Provider: Tomás Wills DO [employer] Other XR knee LT 2V Date of Service: 02/27/23 [employer] Other XR knee LT 2V XR/XR knee LT 2V: Status post total left knee replacement [employer] Other XR knee LT 2V 2 views LEFT knee plain film [employer] Other XR knee LT 2V COMPARISON: 09/13/22 N [employer] Other XR knee LT 2V HISTORY: Status post LEFT total knee arthroplasty [employer] Other XR knee LT 2V ACUTE FINDINGS: None N [employer] Other XR knee LT 2V DEGENERATIVE CHANGE: Unremarkable [employer] Other XR knee LT 2V SOFT TISSUE FINDINGS : Unremarkable [employer] Other XR knee LT 2V JOINT EFFUSION: None N [employer] Other XR knee LT 2V POSTOP CHANGES: Stable hardware [employer] Other XR knee LT 2V BONE MINERALIZATION: Adequate [employer] Other XR knee LT 2V XR/XR knee LT 2V [employer] Other XR knee LT 2V IMPRESSION: Uncomplicated LEFT knee arthroplasty [employer] Other XR knee LT 2V Impression dictated by: Raúl Woo M.D.02/27/2023 3:08 PM [employer] Other XR knee LT 2V Dictation Location: [place] [address] [employer] Other XR knee LT 2V Transcribed By: PWS 02/27/23 [facility] [employer] Other XR knee LT 2V Dictated By: Raúl Woo DO 02/27/23 [facility] [employer] Other XR knee LT 2V Signed By: [employer] Other XR knee LT 2V 02/27/23 0415 [employer] Other Morales 09-13-2022 L - -------- Specimen: [id number] Received: 09/13/22 Status: LUZ Lynn Num: [id number] Spec Type: Surgical Subm Dr: Tomás Wills DO Tissues: A Joint/Knee (LT KNEE) Procedures: Gross/Micro L4, Decalcification -------- Age/ Patient Sex Location Account Attending Physician -------- Glenis Perez Ann 71/F [place] [id number] Tomás Wills DO -------- SPEC NUM: [id number] RECD: 09/13/22 STATUS: LUZ LYNN NUM: [id number] SETH: 09/13/22- [facility] DR: Tomás Wills DO ENTERED: 09/13/22 [facility] [address]: ANDREW TYPE: Surgical DEPT: S ORDERED: [...] The cut surface of the bone is yellow-balladr, trabecular. A gross photo is taken. Gross examination only. CPT Codes 57449 Gross Photo -------- -------- Specimen: [id number] Received: 09/13/22 Status: LUZ Lynn Num: [id number] Spec Type: Surgical Subm Dr: Tomás Wills DO Tissues: A Joint/Knee (LT KNEE) Procedures: Gross/Micro L4, Decalcification -------- Patient: Glenis Perez [id number] (Continued) -------- Signed (signature on file) Kendra Guzman MD 09/14/22 1033 Normal [facility] XR knee LT 2Von 09-13-2022 XR knee LT 2V [address] [address] XRay Report Signed Patient: Glenis Perez MR#: [id number] 40 : 1950 Acct:[id number] Age/Sex: 71 / F ADM Date: 09/13/22 Loc: [place] Room: Type: [facility] Attending Dr: Tomás Wills DO Copies [...] Sameer Guy M.D.09/13/2022 3:01 PM Dictation Location: [place] [address] Transcribed By: [facility] 09/13/22 1501 Dictated By: Sameer Guy II, MD 09/13/22 1500 Signed By: 09/13/22 1501 [facility] PROF CHEM 8 (BAS METB)on Anion gap [Moles/Vol] 10.3 mmol/L Normal [facility] Comment on above: Performed By: #### B MP #### [facility] [address] [place] [address] Dr. Duong Alcaraz Calcium [Mass/Vol] 9.3 mg/dL Normal 8.5-10.1 [facility] Comment on above: Performed By: #### B MP #### [facility] [address] [place] [address] [address] Duong Alcaraz Chloride [Moles/Vol] 95 mmol/L Critically low 98-107 [facility] Comment on above: Performed By: #### B MP #### [facility] [address] [place] [address] [address] Duong Alcaraz CO2 [Moles/Vol] 30.6 mmol/L Normal 21.0-32.[address] [facility] Comment on above: Performed By: #### B MP #### [facility] [address] [place] [address] [address] Duong Alcaraz Creatinine [Mass/Vol] 0.69 mg/dL Normal 0.55-1.02 [facility] Comment on above: Performed By: #### B MP #### [facility] [address] [place] [address] [address] Duong Alcaraz EGFR-AF FRENCH >60 Normal >=[address] [facility] Comment on above: Performed By: #### B MP #### [facility] [address] [place] [address] [address] Duong Alcaraz EGFR-NON AF FRENCH >60 Normal >=60 [facility] Comment on above: Performed By: #### B MP #### [facility] [address] [place] [address] [address] Duong Alcaraz Glucose [Mass/Vol] 83 mg/dL Normal 74-106 [facility] Comment on above: Performed By: #### B MP #### [facility] [address] [place] [address] [address] Duong Alcaraz Potassium [Moles/Vol] 3.9 mmol/L Normal 3.5-5.1 [facility] Comment on above: Performed By: #### B MP #### [facility] [address] [place] [address] [address] Duong Alcaraz Sodium [Moles/Vol] 132 mmol/L Critically low 136-145 [facility] Comment on above: Performed By: #### B MP #### [facility] [address] [place] [address] [address] Duong Alcaraz Urea nitrogen [Mass/Vol] 12.0 mg/dL Normal 7.0-18.0 [facility] Comment on above: Performed By: #### B MP #### [facility] [address] [place] [address] [address] Duong Alcaraz Urea nitrogen/Creatinine [Mass ratio] 17.4 mg/mg Normal [facility] Comment on above: Performed By: #### B MP #### [facility] [address] [place] [address] [address] Duong Alcaraz CMP with reflex to A1Con 04- 21-2023 Albumin [Mass/Vol] 3.9 g/dL Normal 3.5-5.7 [facility] Comment on above: Performed By: #### C BC, CMP wRFX A1C #### [facility] [address] Albumin/Globulin [Mass ratio] 1.5 {ratio} Normal [facility] Comment on above: Performed By: #### C BC, CMP wRFX A1C #### [facility] [address] ALP [Catalytic activity/Vol] 34 U/L Normal 34-104 [facility] Comment on above: Result Comment: PERF ORMED BY: [place] [address] PATHOLOGIST DESTINATION COORDINATOR YAMILETH PERRY M.D. Performed By: #### C BC, CMP wRFX A1C #### [address] ALT [Catalytic activity/Vol] 14 U/L Normal 7-52 [facility] Comment on above: Performed By: #### C BC, CMP wRFX A1C #### [facility] [address] [place] [address] Anion gap [Moles/Vol] 11.1 mmol/L Normal 6.0-15.0 [facility] Comment on above: Performed By: #### C BC, CMP wRFX A1C #### [facility] [address] [place] [address] AST [Catalytic activity/Vol] 18 U/L Normal 13-39 [facility] Comment on above: Performed By: #### C BC, CMP wRFX A1C #### [facility] [address] [place] [address] [place] Bilirubin [Mass/Vol] 0.6 mg/dL Normal 0.3-1.0 [facility] Comment on above: Performed By: #### C BC, CMP wRFX A1C #### [facility] [address] Calcium [Mass/Vol] 8.4 mg/dL Low 8.6-10.3 [facility] Comment on above: Performed By: #### C BC, CMP wRFX A1C #### [facility] [address] [place] [address] [place] Chloride [Moles/Vol] 94 mmol/L Low 98-107 [facility] Comment on above: Performed By: #### C BC, CMP wRFX A1C #### [facility] [address] [place] [address] [place] CO2 [Moles/Vol] 28.0 mmol/L Normal 21.0-31.0 [facility] Comment on above: Performed By: #### C BC, CMP wRFX A1C #### [address] Creatinine [Mass/Vol] 0.68 mg/dL Normal 0.60-1.20 [facility] Comment on above: Performed By: #### C BC, CMP wRFX A1C #### [place] [address] [place] GFR/1.73 sq M.predicted MDRD (S/P/Bld) [Vol rate/Area] mL/min/{1.73_m2} Normal [facility] Comment on above: Performed By: #### C BC, CMP wRFX A1C #### [address] Globulin (S) [Mass/Vol] 2.6 g/dL Normal [facility] Comment on above: Performed By: #### C BC, CMP wRFX A1C #### [place] [address] [place] Glucose [Mass/Vol] 88 mg/dL Normal 70-100 [facility] Comment on above: Performed By: #### C BC, CMP wRFX A1C #### [facility] [address] [place] [address] [place] Potassium [Moles/Vol] 4.1 mmol/L Normal 3.5-5.1 [facility] Comment on above: Performed By: #### C BC, CMP wRFX A1C #### [place] [id number] [place] Protein [Mass/Vol] 6.5 g/dL Normal 6.4-8.9 [facility] Comment on above: Performed By: #### C BC, CMP wRFX A1C #### [facility] [address] Sodium [Moles/Vol] 129 mmol/L Low 136-145 [facility] Comment on above: Performed By: #### C BC, CMP wRFX A1C #### [facility] [address] [place] [address] [place] Urea nitrogen [Mass/Vol] 19 mg/dL Normal 7-25 [facility] Comment on above: Performed By: #### C BC, CMP wRFX A1C #### [facility] [address] Complete Blood Count Auto Di ffon 08-12-2022 Basophils (Bld) [#/Vol] 0.1 10*3/uL Normal 0.0-0.2 [facility] Comment on above: Result Comment: PERF ORMED BY: [place] [address] PATHOLOGIST DESTINATION COORDINATOR YAMILETH PERRY M.D. Performed By: #### C BC, CMP wRFX A1C #### [place] [address] [place] Basophils/100 WBC (Bld) 1.3 % Normal . [facility] Comment on above: Performed By: #### C BC, CMP wRFX A1C #### [facility] [address] [place] [address] [place] Eosinophils (Bld) [#/Vol] 0.1 10*3/uL Normal 0.0-0.45 [facility] Comment on above: Performed By: #### C BC, CMP wRFX A1C #### [facility] [address] [place] [address] [place] Eosinophils/100 WBC (Bld) 1.6 % Normal . [facility] Comment on above: Performed By: #### C BC, CMP wRFX A1C #### [facility] [address] Erythrocyte distribution width (RBC) [Ratio] 13.6 % Normal 11.9-15.3 [facility] Comment on above: Performed By: #### C BC, CMP wRFX A1C #### [facility] [address] Hematocrit (Bld) [Volume fraction] 35.9 % Normal 34.0-46.4 [facility] Comment on above: Performed By: #### C BC, CMP wRFX A1C #### [address] Hemoglobin (Bld) [Mass/Vol] 12.6 g/dL Normal 11.8-15.4 [facility] Comment on above: Performed By: #### C BC, CMP wRFX A1C #### [address] Lymphocytes (Bld) [#/Vol] 0.7 10*3/uL Low 1.00-4.8 [facility] Comment on above: Performed By: #### C BC, CMP wRFX A1C #### [address] Lymphocytes/100 WBC (Bld) 14.6 % Normal . [facility] Comment on above: Performed By: #### C BC, CMP wRFX A1C #### [address] MCH (RBC) [Entitic mass] 31.8 pg Normal 24.7-34.3 [facility] Comment on above: Performed By: #### C BC, CMP wRFX A1C #### [place] [address] [place] MCV (RBC) [Entitic vol] 90.7 fL Normal 80-100 [facility] Comment on above: Performed By: #### C BC, CMP wRFX A1C #### [address] Mean Corpuscular HGB Conc 35.0 g/dL Normal 32.0-35.0 [facility] Comment on above: Performed By: #### C BC, CMP wRFX A1C #### [facility] [address] [place] [address] [place] Monocytes (Bld) [#/Vol] 0.5 10*3/uL Normal 0.0-0.8 [facility] Comment on above: Performed By: #### C BC, CMP wRFX A1C #### [facility] [address] [place] [address] [place] Monocytes/100 WBC (Bld) 10.4 % Normal . [facility] Comment on above: Performed By: #### C BC, CMP wRFX A1C #### [facility] [address] [place] [address] Neutrophils (Bld) [#/Vol] 3.7 10*3/uL Normal 1.8-7.7 [facility] Comment on above: Performed By: #### C BC, CMP wRFX A1C #### [address] Neutrophils/100 WBC (Bld) 72.1 % Normal . [facility] Comment on above: Performed By: #### C BC, CMP wRFX A1C #### [facility] [address] [place] [address] [place] NRBC% 0.0 /100{WBC} Normal 0-0.5 [facility] Comment on above: Performed By: #### C BC, CMP wRFX A1C #### [facility] [address] [place] [address] [place] Platelet mean volume (Bld) [Entitic vol] 6.2 fL Low 6.3-10.7 [facility] Comment on above: Performed By: #### C BC, CMP wRFX A1C #### [facility] [address] [place] [address] [place] Platelets (Bld) [#/Vol] 241 10*3/uL Normal 150-450 [facility] Comment on above: Performed By: #### C BC, CMP wRFX A1C #### [facility] [address] [place] [address] [place] RBC (Bld) [#/Vol] 3.96 10*6/uL Normal 3.60-5.00 [facility] Comment on above: Performed By: #### C BC, CMP wRFX A1C #### [facility] [address] WBC (Bld) [#/Vol] 5.1 10*3/uL Normal 3.8-11.6 [facility] Comment on above: Performed By: #### C BC, CMP wRFX A1C #### [facility] [address] [place] [address] [place] Dipstick and Microscopicon 0 08-12-2022 Appearance (U) Clear Normal Clear [facility] Comment on above: Order Comment: Name Collection Type:: Clean-Voided Midstream Performed By: #### A DDONUAPLUS #### [address] Bacteria,Urine None Seen Normal None Seen [facility] Comment on above: Order Comment: Name Collection Type:: Clean-Voided Midstream Performed By: #### A DDONUAPLUS #### [place] [address] [place] Bilirubin,Urine Negative Normal Negative [facility] Comment on above: Order Comment: Name Collection Type:: Clean-Voided Midstream Performed By: #### A DDONUAPLUS #### [place] [address] [place] Color (U) Yellow Normal Yellow [facility] Comment on above: Order Comment: Name Collection Type:: Clean-Voided Midstream Performed By: #### A DDONUAPLUS #### [place] [address] [place] Glucose Ql (U) Normal Normal Normal [facility] Comment on above: Order Comment: Name Collection Type:: Clean-Voided Midstream Performed By: #### A DDONUAPLUS #### [place] [address] [place] Hyaline Casts,Urine None Seen Normal 0-8 [facility] Comment on above: Order Comment: Name Collection Type:: Clean-Voided Midstream Result Comment: PERF ORMED BY: [place] [address] PATHOLOGIST DESTINATION COORDINATOR YAMILETH PERRY M.D. Performed By: #### A DDONUAPLUS #### [place] [address] [place] Ketones Ql (U) Negative Normal Negative [facility] Comment on above: Order Comment: Name Collection Type:: Clean-Voided Midstream Performed By: #### A DDONUAPLUS #### [address] Leukocyte esterase Test strip Ql (U) 3+ High Negative [facility] Comment on above: Order Comment: Name Collection Type:: Clean-Voided Midstream Performed By: #### A DDONUAPLUS #### [place] [address] [place] Nitrite,Urine Negative Normal Negative [facility] Comment on above: Order Comment: Name Collection Type:: Clean-Voided Midstream Performed By: #### A DDONUAPLUS #### [place] [address] [place] Occult Blood,Urine Negative Normal Negative [facility] Comment on above: Order Comment: Name Collection Type:: Clean-Voided Midstream Result Comment: PERF ORMED BY: [place] [address] PATHOLOGIST DESTINATION COORDINATOR YAMILETH PERRY M.D. Performed By: #### A DDONUAPLUS #### [place] [address] [place] pH (U) 7.0 [pH] Normal 5.0-9.0 [facility] Comment on above: Order Comment: Name Collection Type:: Clean-Voided Midstream Performed By: #### A DDONUAPLUS #### [place] [address] [place] Protein,Urine Negative Normal Negative [facility] Comment on above: Order Comment: Name Collection Type:: Clean-Voided Midstream Performed By: #### A DDONUAPLUS #### [address] RBC LM.HPF (Urine sed) [#/Area] 0 /[HPF] Normal 0-4 [facility] Comment on above: Order Comment: Name Collection Type:: Clean-Voided Midstream Performed By: #### A DDONUAPLUS #### [address] Specificy [place],Urine 1.007 Normal 1.001-1.030 [facility] Comment on above: Order Comment: Name Collection Type:: Clean-Voided Midstream Performed By: #### A DDONUAPLUS #### [address] Squamous Epithelial Cell,Urine None Seen Normal 0-2 [facility] Comment on above: Order Comment: Name Collection Type:: Clean-Voided Midstream Performed By: #### A DDONUAPLUS #### [address] Urobilinogen,Urine Normal Normal Normal [facility] Comment on above: Order Comment: Name Collection Type:: Clean-Voided Midstream Performed By: #### A DDONUAPLUS #### [address] WBC,Urine 3-4 Normal 0-4 [facility] Comment on above: Order Comment: Name Collection Type:: Clean-Voided Midstream Performed By: #### A DDONUAPLUS #### [address] MRI KNEE LT WO CONon 023 [...] by: GRANT ORTEGA Date: 2022-07-04 12:13 Normal [facility] COVID/FLU/RSV RT-PCRon 04-22 SARS-CoV-2 (COVID-19) RNA CASH+probe Ql (Unsp spec) Negative [employer] Other COVID/FLU/RSV RT-PCR Negative [employer] Other CULTURE URINEon 04-14-2022 CULTURE URINE Isolate [...] Trimethoprim/Sulfamet hoxazole <=20 S F Normal [facility] Comment on above: Performed By: #### U RCX ####[facility] [address] [place] [address]Dr. Duong Alcaraz CALCIUMon 04-01-2022 Calcium [Mass/Vol] 9.4 mg/dL Normal 8.5-10.1 [facility] Comment on above: Performed By: #### C A, CREA ####[facility] [address] [place] [address]Dr. Duong Alcaraz CREATININEon 04-01-2022 Creatinine [Mass/Vol] 0.73 mg/dL Normal 0.55-1.02 [facility] Comment on above: Performed By: #### C A, CREA ####[facility] [address] [place], [place] [address]Dr. Duong Alcaraz EGFR-AF FRENCH >60 Normal >=60 [facility] Comment on above: Performed By: #### C A, CREA ####[facility] [address] [place] [address]Dr. Duong Alcaraz EGFR-NON AF FRENCH >60 Normal >=60 [facility] Comment on above: Performed By: #### C A, CREA ####[facility] [address] [place] [address]Dr. Duong Alcaraz PROF CHEM 8 (BAS METB)on Anion gap [Moles/Vol] 12.5 mmol/L Normal [facility] Comment on above: Performed By: #### B MP #### [facility] [address] [place] [address] Dr. Duong Alcaraz Calcium [Mass/Vol] 8.8 mg/dL Normal 8.5-10.1 [facility] Comment on above: Performed By: #### B MP #### [facility] [address] [place] [address] [address] Duong Alcaraz Chloride [Moles/Vol] 95 mmol/L Critically low 98-107 [facility] Comment on above: Performed By: #### B MP #### [facility] [address] [place] [address] [address] Duong Alcaraz CO2 [Moles/Vol] 27.3 mmol/L Normal 21.0-32.[address] [facility] Comment on above: Performed By: #### B MP #### [facility] [address] [place] [address] [address] Duong Alcaraz Creatinine [Mass/Vol] 0.68 mg/dL Normal 0.55-1.02 [facility] Comment on above: Performed By: #### B MP #### [facility] [address] [place] [address] [address] Duong Alcaraz EGFR-AF FRENCH >60 Normal >=[address] [facility] Comment on above: Performed By: #### B MP #### [facility] [address] [place] [address] [address] Duong Alcaraz EGFR-NON AF FRENCH >60 Normal >=60 [facility] Comment on above: Performed By: #### B MP #### [facility] [address] [place] [address] [address] Duong Alcaraz Glucose [Mass/Vol] 98 mg/dL Normal 74-106 [facility] Comment on above: Performed By: #### B MP #### [facility] [address] [place] [address] [address] Duong Alcaraz Potassium [Moles/Vol] 3.8 mmol/L Normal 3.5-5.1 [facility] Comment on above: Performed By: #### B MP #### [facility] Laboratory [address] [address] [address] Duong Alcaraz Sodium [Moles/Vol] 131 mmol/L Critically low 136-145 [facility] Comment on above: Performed By: #### B MP #### [facility] [address] [address] [address] Duong Alcaraz Urea nitrogen [Mass/Vol] 14.0 mg/dL Normal 7.0-18.0 [facility] Comment on above: Performed By: #### B MP #### [facility] [address] [place] [address] Dr. Duong Alcaraz Urea nitrogen/Creatinine [Mass ratio] 20.6 mg/mg Normal [facility] Comment on above: Performed By: #### B MP #### [facility] [address] [place] [address] Dr. Duong Alcaraz BNPon 11-12-2021 Natriuretic peptide B (Bld) [Mass/Vol] 151.0 pg/mL Normal <=900.0 [facility] Comment on above: Performed By: #### C MP, BNP #### [facility] [address] [place] [address] Dr. Duong Alcaraz CBC AUTO DIFFon 11-12-2021 BASO # 0.1 103/ul Normal 0.0-0.1 [facility] Comment on above: Performed By: #### C BC ####[facility] [address] [place], [place] [address]DrClovis Alcaraz Basophils/100 WBC (Bld) 1.3 % Normal 0.2-2.0 [facility] Comment on above: Performed By: #### C BC ####[facility] [address] [place], [place] [address]DrClovis Alcaraz EO # 0.2 103/ul Normal 0.0-0.7 [facility] Comment on above: Performed By: #### C BC ####[facility] [address] [place], [place] [address]DrClovis Alcaraz Eosinophils/100 WBC (Bld) 4.4 % Normal 0.9-7.0 [facility] Comment on above: Performed By: #### C BC ####[facility] [address] [place], [place] [address]Dr. Duong Alcaraz Erythrocyte distribution width (RBC) [Ratio] 12.3 % Normal 11.0-15.0 [facility] Comment on above: Performed By: #### C BC ####[facility] [address] [place], [place] [address]DrClovis Alcaraz Hematocrit (Bld) [Volume fraction] 36.4 % Normal 36.0-48.0 [facility] Comment on above: Performed By: #### C BC ####[facility] [address] [id number]. Duong Alcaraz Hemoglobin (Bld) [Mass/Vol] 12.8 g/dL Normal 12.0-16.0 [facility] Comment on above: Performed By: #### C BC ####[facility] [id number]. Selenastevo Kieran IG # 0.02 10e3/ul Normal 0.00-0.03 [facility] Comment on above: Performed By: #### C BC ####[facility] [address] [id number]. Duong Alcaraz IG % 0.5 % Normal 0.0-0.5 [facility] Comment on above: Performed By: #### C BC ####[facility] [address] [address]Dr. Duong Alcaraz LYMPH # 0.8 103/ul Critically low 1.2-3.8 [facility] Comment on above: Performed By: #### C BC ####[facility] [address] [id number]. Duong Alcaraz Lymphocytes/100 WBC (Bld) 19.5 % Critically low 20.5-60.0 [facility] Comment on above: Performed By: #### C BC ####[facility] [address] [id number]. Duong Alcaraz MANUAL DIFF REQ NO Normal [facility] Comment on above: Performed By: #### C BC ####[facility] [address] [id number]. Duong Kieran MCH (RBC) [Entitic mass] 31.7 pg Normal 26.7-34.0 [facility] Comment on above: Performed By: #### C BC ####[facility] [address] [id number]. Selenastevo Alcaraz MCHC (RBC) [Mass/Vol] 35.2 g/dL Normal 29.9-35.2 [facility] Comment on above: Performed By: #### C BC ####[facility] [address] [id number]. Duong Alcaraz MCV (RBC) [Entitic vol] 90.1 fL Normal 81.0-99.0 [facility] Comment on above: Performed By: #### C BC ####[facility] [address] [id number]. Duong Alcaraz MONO # 0.5 103/ul Normal 0.3-0.8 [facility] Comment on above: Performed By: #### C BC ####[facility] [address] [id number]. Duong Alcaraz Monocytes/100 WBC (Bld) 12.3 % Critically high 1.7-12.0 [facility] Comment on above: Performed By: #### C BC ####[facility] [address] [place], [place] [address]Dr. Duong Alcaraz NEUT # 2.4 103/ul Normal 1.4-6.5 [facility] Comment on above: Performed By: #### C BC ####[facility] [address] [id number]. Duong Alcaraz Neutrophils/100 WBC (Bld) 62.0 % Normal 43.0-75.0 [facility] Comment on above: Performed By: #### C BC ####[facility] [address] [id number]. Duong Alcaraz Platelet mean volume (Bld) [Entitic vol] 7.8 fL Critically low 9.5-13.5 [facility] Comment on above: Performed By: #### C BC ####[facility] [address] [id number]. Duong Alcaraz PLT 183 103/ul Normal 150-450 [facility] Comment on above: Performed By: #### C BC ####[facility] [address] [id number]. Duong Kieran RBC 4.04 106/ul Critically low 4.20-5.40 [facility] Comment on above: Performed By: #### C BC ####[facility] [address] [place], [place] [address]SuDr. Duong Alcaraz WBC 3.9 103/ul Critically low 4.0-11.0 [facility] Comment on above: Performed By: #### C BC ####[facility] [address] [place], [place] [address]WwDr. Duong Alcaraz PROF 14(COMP METB)on 022 Albumin [Mass/Vol] 3.4 g/dL Normal 3.4-5.0 [facility] Comment on above: Performed By: #### C MP, BNP #### [facility] [address] [address] [address] Duong Alcaraz Albumin/Globulin [Mass ratio] 0.9 {ratio} Normal [facility] Comment on above: Performed By: #### C MP, BNP #### [facility] [address] [address] [address] Duong Alcaraz ALP [Catalytic activity/Vol] 33 U/L Critically low 46-116 [facility] Comment on above: Performed By: #### C MP, BNP #### [facility] [address] [address] [address] Duong Alcaraz ALT [Catalytic activity/Vol] 21 U/L Normal 14-59 [facility] Comment on above: Performed By: #### C MP, BNP #### [facility] [address] [address] [address] Duong Alcaraz Anion gap [Moles/Vol] 8.0 mmol/L Normal [facility] Comment on above: Performed By: #### C MP, BNP #### [facility] [address] [address] [address] Duong Alcaraz AST [Catalytic activity/Vol] 26 U/L Normal 15-37 [facility] Comment on above: Performed By: #### C MP, BNP #### [facility] [address] [address] [address] Duong Alcaraz Bilirubin [Mass/Vol] 0.6 mg/dL Normal 0.2-1.0 [facility] Comment on above: Performed By: #### C MP, BNP #### [facility] [address] [address] [address] Duong Alcaraz Calcium [Mass/Vol] 8.8 mg/dL Normal 8.5-10.1 [facility] Comment on above: Performed By: #### C MP, BNP #### [facility] [address] [address] [address] Duong Alcaraz Chloride [Moles/Vol] 98 mmol/L Normal 98-107 [facility] Comment on above: Performed By: #### C MP, BNP #### [facility] [address] [address] [address] Duong Alcaraz CO2 [Moles/Vol] 29.7 mmol/L Normal 21.0-32.[address] [facility] Comment on above: Performed By: #### C MP, BNP #### [facility] [address] [place] [address] Dr. Duong Alcaraz Creatinine [Mass/Vol] 0.71 mg/dL Normal 0.55-1.02 [facility] Comment on above: Performed By: #### C MP, BNP #### [facility] [address] [place] [address] Dr. Duong Alcarza EGFR-AF FRENCH >60 Normal >=[address] [facility] Comment on above: Performed By: #### C MP, BNP #### [facility] [address] [address] [address] Duong Alcaraz EGFR-NON AF FRENCH >60 Normal >=60 [facility] Comment on above: Performed By: #### C MP, BNP #### [facility] [address] [address] [address] Duong Alcaraz Globulin (S) [Mass/Vol] 3.8 g/dL Normal [facility] Comment on above: Performed By: #### C MP, BNP #### [facility] [address] [address] [address] Duong Alcaraz Glucose [Mass/Vol] 94 mg/dL Normal 74-106 [facility] Comment on above: Performed By: #### C MP, BNP #### [facility] [address] [address] [address] Duong Alcaraz Potassium [Moles/Vol] 3.7 mmol/L Normal 3.5-5.1 [facility] Comment on above: Performed By: #### C MP, BNP #### [facility] [address] [address] [address] Duong Alcaraz Protein [Mass/Vol] 7.2 g/dL Normal 6.4-8.2 [facility] Comment on above: Performed By: #### C MP, BNP #### [facility] [address] [address] [address] Duong Alcaraz Sodium [Moles/Vol] 132 mmol/L Critically low 136-145 [facility] Comment on above: Performed By: #### C MP, BNP #### [facility] [address] [place] [address] Dr. Duong Alcaraz Urea nitrogen [Mass/Vol] 14.0 mg/dL Normal 7.0-18.0 [facility] Comment on above: Performed By: #### C MP, BNP #### [facility] [address] [address] [address] Duong Alcaraz Urea nitrogen/Creatinine [Mass ratio] 19.7 mg/mg Normal [facility] Comment on above: Performed By: #### C MP, BNP #### [facility] [address] [place] [address] Dr. Duong Alcaraz ECHOCARDIO M/2D COMPLETEon 0 11-03-2021 ECHOCARDIO M/2D COMPLETE Patient: GLENIS PEREZ Exam Date: 11/03/2021 : 1950 Gender:F Ordering : PARUL FITZPATRICK Admission #: [id number] Family : DR ANDIE FORDE . Order #: [id number] CLICK HERE TO VIEW EXAM ECHOCARDIOGRAM REPORT [...] Federico Riley M.D. on 11/03/2021 at 21:34 [facility] BNPon 10-04-2021 Natriuretic peptide B (Bld) [Mass/Vol] 200.0 pg/mL Normal <=900.0 [facility] Comment on above: Performed By: #### B EMAIL PRODUCTION SPECIALIST, TSH, LIPID, CMP, T7 ####[facility] [address] [place], [place] [address]EmDr. Duong Alcaraz CBC AUTO DIFFon 10-04-2021 BASO # 0.1 103/ul Normal 0.0-0.1 [facility] Comment on above: Performed By: #### C BC #### [facility] [address] [address] [address] Duong Alcaraz Basophils/100 WBC (Bld) 1.2 % Normal 0.2-2.0 [facility] Comment on above: Performed By: #### C BC #### [facility] [address] [address] [address] Duong Alcaraz EO # 0.1 103/ul Normal 0.0-0.7 [facility] Comment on above: Performed By: #### C BC #### [facility] [address] [address] [address] Duong Alcaraz Eosinophils/100 WBC (Bld) 2.8 % Normal 0.9-7.0 [facility] Comment on above: Performed By: #### C BC #### [facility] [address] [address] [address] Duong Alcaraz Erythrocyte distribution width (RBC) [Ratio] 12.2 % Normal 11.0-15.0 [facility] Comment on above: Performed By: #### C BC #### [facility] [address] [address] [address] Duong Alcaraz Hematocrit (Bld) [Volume fraction] 37.0 % Normal 36.0-48.0 [facility] Comment on above: Performed By: #### C BC #### [facility] [address] [address] [address] Duong Alcaraz Hemoglobin (Bld) [Mass/Vol] 12.6 g/dL Normal 12.0-16.0 [facility] Comment on above: Performed By: #### C BC #### [facility] [address] [address] [address] Duong Alcaraz IG # 0.03 10e3/ul Normal 0.00-0.03 [facility] Comment on above: Performed By: #### C BC #### [facility] [address] [place] [address] Dr. Duong Alcaraz IG % 0.7 % Critically high 0.0-0.5 [facility] Comment on above: Performed By: #### C BC #### [facility] [address] [place] [address] Dr. Duong Alcaraz LYMPH # 0.7 103/ul Critically low 1.2-3.8 [facility] Comment on above: Performed By: #### C BC #### [facility] [address] [place] [address] Dr. Duong Alcaraz Lymphocytes/100 WBC (Bld) 16.0 % Critically low 20.5-60.0 [facility] Comment on above: Performed By: #### C BC #### [facility] [address] [place] [address] Dr. Duong Alcaraz MANUAL DIFF REQ NO Normal [facility] Comment on above: Performed By: #### C BC #### [facility] [address] [place] [address] Dr. Duong Alcaraz MCH (RBC) [Entitic mass] 31.4 pg Normal 26.7-34.0 [facility] Comment on above: Performed By: #### C BC #### [facility] [address] [place] [address] Dr. Duong Alcaraz MCHC (RBC) [Mass/Vol] 34.1 g/dL Normal 29.9-35.2 [facility] Comment on above: Performed By: #### C BC #### [facility] [address] [place] [address] Dr. Duong Alcaraz MCV (RBC) [Entitic vol] 92.3 fL Normal 81.0-99.0 [facility] Comment on above: Performed By: #### C BC #### [facility] [address] [place] [address] Dr. Duong Alcaraz MONO # 0.5 103/ul Normal 0.3-0.8 [facility] Comment on above: Performed By: #### C BC #### [facility] [address] [address] [address] Duong Alcaraz Monocytes/100 WBC (Bld) 11.5 % Normal 1.7-12.0 [facility] Comment on above: Performed By: #### C BC #### [facility] [address] [address] [address] Duong Alcaraz NEUT # 2.9 103/ul Normal 1.4-6.5 [facility] Comment on above: Performed By: #### C BC #### [facility] [address] [place] [address] Dr. Duong Alcaraz Neutrophils/100 WBC (Bld) 67.8 % Normal 43.0-75.0 [facility] Comment on above: Performed By: #### C BC #### [facility] [address] [place] [address] Dr. Duong Alcaraz Platelet mean volume (Bld) [Entitic vol] 8.2 fL Critically low 9.5-13.5 [facility] Comment on above: Performed By: #### C BC #### [facility] [address] [place] [address] Dr. Duong Alcaraz PLT 191 103/ul Normal 150-450 [facility] Comment on above: Performed By: #### C BC #### [facility] [address] [address] [address] Duong Alcaraz RBC 4.01 106/ul Critically low 4.20-5.40 [facility] Comment on above: Performed By: #### C BC #### [facility] [address] [place] [address] Dr. Duong Alcaraz WBC 4.3 103/ul Normal 4.0-11.0 [facility] Comment on above: Performed By: #### C BC #### [facility] [address] [place] [address] Dr. Duong Alcaraz FREE THYROXINE INDEX T7on FTI 3.01 Normal 1.30-4.50 [facility] Comment on above: Performed By: #### B EMAIL PRODUCTION SPECIALIST, TSH, LIPID, CMP, T7 ####[facility] [address] [id number] Alcaraz T3U 35.0 % Normal 30.0-39.0 [facility] Comment on above: Performed By: #### B EMAIL PRODUCTION SPECIALIST, TSH, LIPID, CMP, T7 ####[facility] [address] [id number] Alcaraz T4 [Mass/Vol] 8.60 ug/dL Normal 4.80-13.90 [facility] Comment on above: Performed By: #### B EMAIL PRODUCTION SPECIALIST, TSH, LIPID, CMP, T7 ####[facility] [address] [address]DrClovis Alcaraz GLYCOHEMOGLOBIN A1Con 2021 ADA RECOMMENDATION SEE BELOW Normal [facility] Comment on above: Result Comment: ADA RECOMMENDED LIMIT 4.0 - 6.0 ADA THERAPEUTIC TARGET < 7.0 ACTION SUGGESTED > 7.0 Performed By: #### A 1C #### [facility] [address] [address] [address] Duong Alcaraz Glucose [Mass/Vol] 108 mg/dL Normal [facility] Comment on above: Performed By: #### A 1C #### [facility] [address] [address] [address] Duong Alcaraz HbA1c (Bld) [Mass fraction] 5.4 % Normal 4.5-6.2 [facility] Comment on above: Performed By: #### A 1C #### [facility] [address] [address] [address] Duong Alcaraz IRONon 10-04-2021 Iron [Mass/Vol] 93.0 ug/dL Normal 50.0-170.0 [facility] Comment on above: Performed By: #### I SHARRON ####[facility] [address] [address]Dr. Duong Alcaraz LIPID PROFILEon 10-04-2021 CHOL-HDL RATIO NORM SEE BELOW Normal [facility] Comment on above: Result Comment: 3.3 - 4.4 LOW RISK 4.4 - 7.1 AVERAGE RISK 7.1 - 11.0 MODERATE RISK >11.0 HIGH RISK Performed By: #### B EMAIL PRODUCTION SPECIALIST, TSH, LIPID, CMP, T7 ####[facility] [address] [place], [place] [address]Bi. Duong Alcaraz Cholesterol [Mass/Vol] 182 mg/dL Normal <=200 [facility] Comment on above: Performed By: #### B EMAIL PRODUCTION SPECIALIST, TSH, LIPID, CMP, T7 ####[facility] [address] [id number]. Duong Alcaraz Cholesterol in HDL [Mass/Vol] 69 mg/dL Critically high 40-60 [facility] Comment on above: Performed By: #### B EMAIL PRODUCTION SPECIALIST, TSH, LIPID, CMP, T7 ####[facility] [address] [id number]. Duong Alcaraz Cholesterol in LDL [Mass/Vol] 107.6 mg/dL Normal [facility] Comment on above: Performed By: #### B EMAIL PRODUCTION SPECIALIST, TSH, LIPID, CMP, T7 ####[facility] [address] [id number]. Duong Alcaraz Cholesterol.total/C holesterol in HDL [Mass ratio] 2.6 {ratio} Normal [facility] Comment on above: Performed By: #### B EMAIL PRODUCTION SPECIALIST, TSH, LIPID, CMP, T7 ####[facility] [address] [id number]. Duong Alcaraz HDL NORMAL > or = 60 mg/dl - LO W CARDIOVASCULAR RISK <40 mg/dl - HIGH CARDIOVASCULAR RISK Normal [facility] Comment on above: Performed By: #### B EMAIL PRODUCTION SPECIALIST, TSH, LIPID, CMP, T7 ####[facility] [address] [id number]. Duong Alcaraz LDL CALC NORMAL SEE BELOW Normal [facility] Comment on above: Result Comment: <100 mg/dl OPTIMAL 100 - 129 mg/dl NEAR OR ABOVE OPTIMAL 130 - 159 mg/dl BORDERLINE HIGH 160 - 189 mg/dl HIGH >190 mg/dl VERY HIGH Performed By: #### B EMAIL PRODUCTION SPECIALIST, TSH, LIPID, CMP, T7 ####[facility] [address] [place], [place] [address]RbDr. Duong Alcaraz Triglyceride [Mass/Vol] 27 mg/dL Normal <=150 [facility] Comment on above: Performed By: #### B EMAIL PRODUCTION SPECIALIST, TSH, LIPID, CMP, T7 ####[facility] [address] [place], [place] [address]JsDr. Duong Alcaraz VLDL CALC 5.4 mg/dL Normal [facility] Comment on above: Performed By: #### B EMAIL PRODUCTION SPECIALIST, TSH, LIPID, CMP, T7 ####[facility] [address] [id number]. Duong Alcaraz PROF 14(COMP METB)on 022 Albumin [Mass/Vol] 3.5 g/dL Normal 3.4-5.0 [facility] Comment on above: Performed By: #### B EMAIL PRODUCTION SPECIALIST, TSH, LIPID, CMP, T7 #### [facility] [address] [address] [address] Duong Alcaraz Albumin/Globulin [Mass ratio] 1.0 {ratio} Normal [facility] Comment on above: Performed By: #### B EMAIL PRODUCTION SPECIALIST, TSH, LIPID, CMP, T7 #### [facility] [address] [place] [address] Dr. Duong Alcaraz ALP [Catalytic activity/Vol] 34 U/L Critically low 46-116 [facility] Comment on above: Performed By: #### B EMAIL PRODUCTION SPECIALIST, TSH, LIPID, CMP, T7 #### [facility] [address] [address] [address] Duong Alcaraz ALT [Catalytic activity/Vol] 22 U/L Normal 14-59 [facility] Comment on above: Performed By: #### B EMAIL PRODUCTION SPECIALIST, TSH, LIPID, CMP, T7 #### [facility] [address] [address] [address] Duong Alcaraz Anion gap [Moles/Vol] 12.3 mmol/L Normal [facility] Comment on above: Performed By: #### B EMAIL PRODUCTION SPECIALIST, TSH, LIPID, CMP, T7 #### [facility] [address] [place] [address] Dr. Duong Alcaraz AST [Catalytic activity/Vol] 19 U/L Normal 15-37 [facility] Comment on above: Performed By: #### B EMAIL PRODUCTION SPECIALIST, TSH, LIPID, CMP, T7 #### [facility] [address] [address] [address] Duong Alcaraz Bilirubin [Mass/Vol] 0.6 mg/dL Normal 0.2-1.0 [facility] Comment on above: Performed By: #### B EMAIL PRODUCTION SPECIALIST, TSH, LIPID, CMP, T7 #### [facility] [address] [place] [address] Dr. Duong Alcaraz Calcium [Mass/Vol] 8.5 mg/dL Normal 8.5-10.1 [facility] Comment on above: Performed By: #### B EMAIL PRODUCTION SPECIALIST, TSH, LIPID, CMP, T7 #### [facility] [address] [place] [address] Dr. Duong Alcaraz Chloride [Moles/Vol] 101 mmol/L Normal 98-107 [facility] Comment on above: Performed By: #### B EMAIL PRODUCTION SPECIALIST, TSH, LIPID, CMP, T7 #### [facility] [address] [place] [address] Dr. Duong Alcaraz CO2 [Moles/Vol] 25.3 mmol/L Normal 21.0-32.0 [facility] Comment on above: Performed By: #### B EMAIL PRODUCTION SPECIALIST, TSH, LIPID, CMP, T7 #### [facility] [address] [place] [address] Dr. Duong Alcaraz Creatinine [Mass/Vol] 0.64 mg/dL Normal 0.55-1.02 [facility] Comment on above: Performed By: #### B EMAIL PRODUCTION SPECIALIST, TSH, LIPID, CMP, T7 #### [facility] [address] [place] [address] Dr. Duong Alcaraz EGFR-AF FRENCH >60 Normal >=60 [facility] Comment on above: Performed By: #### B EMAIL PRODUCTION SPECIALIST, TSH, LIPID, CMP, T7 #### [facility] [address] [place] [address] Dr. Duong Alcaraz EGFR-NON AF FRENCH >60 Normal >=60 [facility] Comment on above: Performed By: #### B EMAIL PRODUCTION SPECIALIST, TSH, LIPID, CMP, T7 #### [facility] [address] [place] [address] Dr. Duong Alcaraz Globulin (S) [Mass/Vol] 3.4 g/dL Normal [facility] Comment on above: Performed By: #### B EMAIL PRODUCTION SPECIALIST, TSH, LIPID, CMP, T7 #### [facility] [address] [address] [address] Duong Alcaraz Glucose [Mass/Vol] 91 mg/dL Normal 74-106 [facility] Comment on above: Performed By: #### B EMAIL PRODUCTION SPECIALIST, TSH, LIPID, CMP, T7 #### [facility] [address] [place] [address] Dr. Duong Alcaraz Potassium [Moles/Vol] 4.6 mmol/L Normal 3.5-5.1 [facility] Comment on above: Performed By: #### B EMAIL PRODUCTION SPECIALIST, TSH, LIPID, CMP, T7 #### [facility] [address] [place] [address] Dr. Duong Alcaraz Protein [Mass/Vol] 6.9 g/dL Normal 6.4-8.2 [facility] Comment on above: Performed By: #### B EMAIL PRODUCTION SPECIALIST, TSH, LIPID, CMP, T7 #### [facility] [address] [place] [address] Dr. Duong Alcaraz Sodium [Moles/Vol] 134 mmol/L Critically low 136-145 [facility] Comment on above: Performed By: #### B EMAIL PRODUCTION SPECIALIST, TSH, LIPID, CMP, T7 #### [facility] [address] [place] [address] Dr. Duong Alcaraz Urea nitrogen [Mass/Vol] 11.0 mg/dL Normal 7.0-18.0 [facility] Comment on above: Performed By: #### B EMAIL PRODUCTION SPECIALIST, TSH, LIPID, CMP, T7 #### [facility] Laboratory [address] [place] [address] Dr. Duong Alcaraz Urea nitrogen/Creatinine [Mass ratio] 17.2 mg/mg Normal [facility] Comment on above: Performed By: #### B EMAIL PRODUCTION SPECIALIST, TSH, LIPID, CMP, T7 #### [facility] [address] [place], [place] [address] Dr. Duong Alcaraz TSHon 10-04-2021 TSH 1.568 uIU/mL Normal 0.358-3.740 [facility] Comment on above: Performed By: #### B EMAIL PRODUCTION SPECIALIST, TSH, LIPID, CMP, T7 ####[facility] [address] [place], [place] [address]LpDr. Duong Alcaraz TSH RANGE SEE BELOW Normal [facility] Comment on above: Result Comment: <0.3 4 UIU/ml HYPERTHYROID 0.34-5.60 UIU/ml EUTHYROID >5.60 UIU/ml HYPOTHYROID Performed By: #### B EMAIL PRODUCTION SPECIALIST, TSH, LIPID, CMP, T7 ####[facility] [address] [place], [place] [address]LmDr. Duong Alcaraz MG MAMM SCREEN 3D ALONSO CADon 09-15-2021 MG MAMM SCREEN 3D ALONSO CAD Patient: GLENIS PEREZ Exam Date: 09/15/2021 : 1950 Gender:F Ordering : DR ANDIE FORDE . Admission #: [id number] Family : Order #: [id number] CLICK HERE TO VIEW EXAM RADIOLOGY REPORT [...] Treatments None Family Cancers None LOCATION: [facility] BREAST COMPOSITION: Heterogeneously dense,which may [...] on 09/15/2021 at 12:00 Approved by: Grant Orteag M.D. on 09/15/2021 at 15:08 Normal [facility] XR DEXA BONE DENSITYon 09-15 XR DEXA [...] by: GRANT ORTEGA Date: 2021-09-15 08:58 Normal [facility] Cardiovascular Lab Reporton 11-12-2020 Cardiovascular Lab Report [facility] Patient Name: Chris [facility] MR #: [id number] Physician: Doe Velez Department of M.D. Medicine Service Date: 11/11/2020 Division of Birthdate: 1950 Cardiology Room #: [facility] Cardiovascular Services [place] [address] Cardiovascular Laboratory Report CLINICAL PRESENTATION: The patient [...] left radial artery. Using ultrasound guidance, a 6-Belarusian Terumo Glidesheath slender was placed in the left radial artery. The radial anti-vasospasm cocktail of nitroglycerin 200 mcg and verapamil 2.5 mg was administered through the sheath. All catheter exchanges were made over the Magic Torque guidewire. A 5-Belarusian JR4 used to engage the right coronary artery. A 5-Belarusian JL4 used to engage the left main [...] Velez M.D. Date Trans: 11/12/2020 05:34 A/viri [id number] cc: Siddharth Nolasco MD Dept Of Cardiology [address] [facility] [address] Andie Forde M.D. [address] [facility] [address] Parul Fitzpatrick, APPLICATION DEVELOPMENT TEAM LEAD [address] [facility] 1118 [facility] [address] Normal [facility] Formson 08-26-2020 Forms [id number] .[id number]:127 Normal [facility] Physician Referralon 021 Physician Referral [id number] .[id number]:127 Normal [facility] Ambulatory Clinical Summaryo n 08-25-2020 Ambulatory Clinical Summary {[id number]}CD:[id number] Gaviota Griffin [facility] Patient Educationon 08-26-19 Patient Education Urinary [...] Document Reviewed: 05/18/2012 ExitCare? Patient Information ?2013 [employer] 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 Requested stent placement to aid in dissection [...] Urnls Dip Stick Auto w/o Microscopy POC [address] Urology Procedure Order 2. UTI (urinary tract infection) (N39.0: Urinary tract infection, site not specified) UA today appears to be infected with positive nitrate. Will start pt. on Cipro 500mg bid, #6. Script sent to [facility] in [place]. Ordered: Urology Procedure Order 3. Microscopic hematuria (R31.29: Other microscopic hematuria) UA today - trace intact. Ordered: Urology Procedure Order Orders: ciprofloxacin, 500 mg = 1 tab(s), Oral, q12hr, X 3 day(s), # 6 tab(s), Refills(s) 0, Pharmacy: [facility] 1155, 160, cm, 08/25/20 11:31:00 EDT, Height/Length Dosing, 75.6, kg, 08/25/20 11:31:00 EDT, Weight Dosing I have reviewed the previous health record information and history for this pt. from Dr. Gonzalez. Follow-up With When Contact Information Carlos Alvarado MD, Dallin Malik, URO [address] [place] [id number]- Additional Instructions: Patient Education Urinary Tract Infection I, Negra Richmond (more content not included)... Normal [facility] Comment on above: Result Comment: Elec tronically Signed By: Dallin Gonzalez Jr., MD\.br\Date and Time Signed: 08/25/20 13:08 EDT\.br\Electronically Co-Signed By: Negra Mccullough MA\.br\Date and Time Co-Signed: 08/25/20 11:50 EDT Vital Signs Date Time Vital Sign Value Performing Clinician Facility 03-20-2024 11:16-0500 Body height 160 cm Ernie Miller DO Work Phone: [facility] 03-20-2024 11:16-0500 Body mass index (BMI) [Ratio] 29.23 kg/m2 Ernie Miller DO Work Phone: [facility] 03-20-2024 11:16-0500 Body weight 74.84 kg Ernie Andrzej DO Work Phone: [facility] [employer] 03-20-2024 11:16-0500 Diastolic blood pressure 74 mm[Hg] Ernie Andrzej DO Work Phone: [facility] 03-20-2024 11:16-0500 Heart rate 102 /min Ernie Andrzej DO Work Phone: [facility] 03-20-2024 11:16-0500 SaO2% (BldA) [Mass fraction] 98 % Ernie Andrzej DO Work Phone: [facility] [employer] 03-20-2024 11:16-0500 Systolic blood pressure 110 mm[Hg] Ernie Andrzej DO Work Phone: [facility] 02-27-2023 10:15-0500 Body height 161.29 cm Tomás [employer] Other [facility] Other 11-28-2022 11:00-0400 Body height 161.29 cm Tomás Elma Other [facility] Other 11-28-2022 11:00-0400 Body mass index (BMI) [Ratio] 27.55 kg/m2 Tomás Elma Other [facility] Other 11-28-2022 11:00-0400 Body weight 71.67 kg Tomás Elma Other [facility] Other 09-28-2022 13:15-0400 Body height 161.29 cm Tomás Elma Other [facility] Other 09-28-2022 13:15-0400 Body mass index (BMI) [Ratio] 27.9 kg/m2 Tomás Elma Other [facility] Other 09-28-2022 13:15-0400 Body weight 72.58 kg Tomás Wills Other [facility] Other 04-22-2022 16:30-0500 Body height 161.29 cm Linda Hall Other [facility] Other 04-22-2022 16:30-0500 Body mass index (BMI) [Ratio] 27.02 kg/m2 Linda Hall Other [facility] Other 04-22-2022 16:30-0500 Body temperature 96.4 [degF] Linda Hall Other [facility] Other 04-22-2022 16:30-0500 Body weight 70.31 kg Linda Hall Other [facility] Other 04-22-2022 16:30-0500 Respiratory rate 18 /min Linda Hall Other [facility] Other 04-22-2022 16:30-0500 SaO2% (BldA) [Mass fraction] 98 % Linda Hall Other [facility] Other Encounters Encounter Date Encounter Type Care Provider Facility Start: 03-20-2024 End: 03-20-2024 Bamboo flowsheet Ernie Andrzej DO Work Phone: [facility] Start: 03-20-2024 End: 03-20-2024 Bamboo flowsheet Ernie Andrzej DO Work Phone: [facility] Start: 03-20-2024 End: 03-20-2024 Office outpatient visit 25 minutes Ernie Miller DO Work Phone: [email or web address] Comment on above: RICK (obstructive sle ep apnea) (Primary Dx); Hypersomnia; Snoring Start: 03-20-2024 End: 03-20-2024 ambulatory ERNIE MILLER Not Available Start: 01-08-2024 End: 01-08-2024 ambulatory TATIANNA SUMIT [facility] Start: 11-22-2023 End: 11-22-2023 ambulatory FRANK E RINKES Not Available Start: 07-13-2023 End: 07-13-2023 ambulatory FRANK E RINKES Not Available Start: 04-04-2023 End: 04-04-2023 ambulatory FRANK E RINKES Not Available Start: 02-27-2023 Office outpatient vi sit 15 minutes Tomás Wills [facility] Start: 02-27-2023 End: 02-27-2023 ambulatory Tomás Wills [employer] Other Start: 01-18-2023 End: 01-18-2023 ambulatory Tomás Wills Other [facility] Other Start: 01-18-2023 Telephone encounter Tomás Wills [facility] Start: 12-28-2022 End: 12-28-2022 ambulatory Tomás Wills Other [facility] Other Start: 12-28-2022 Telephone encounter Tomás Wills [facility] Start: 11-28-2022 End: 11-28-2022 ambulatory Tomás Wills Other [facility] Other Start: 11-28-2022 Postop follow up vis it related to original px Tomás Wills [facility] Start: 09-28-2022 End: 09-28-2022 ambulatory Tomás Wills Other [facility] Other Start: 09-28-2022 Postop follow up vis it related to original px Tomás Wills [facility] Start: 09-23-2022 End: 09-23-2022 ambulatory Tomás Wills Other [facility] Other Start: 09-23-2022 Telephone encounter Tomás CHRISTENSEN [facility] Start: 09-13-2022 End: 09-13-2022 ambulatory Andie Forde Facility:[facility] Start: 08-24-2022 End: 08-24-2022 ambulatory Tomás Wills Facility:[facility] Start: 08-19-2022 End: 08-20-[address] ANDIE FORDE . Facility:[facility] Start: 08-12-2022 End: 08-12-2022 ambulatory Tomás Wills Facility:[facility] Start: 07-04-2022 End: 07-05-[address] ANDIE FORDE . Facility:[facility] Start: 06-22-2022 End: 06-23-[address] ANDIE FORDE . Facility:[facility] Start: 04-22-2022 End: 04-22-2022 ambulatory Linda Hall Other [facility] Other Start: 04-22-2022 Office outpatient ne w [...] Start: 11-11-2020 End: 11-12-2020 ambulatory DOE VELEZ Facility:[facility] Plan of Treatment Date Care Activity Detail Author Start: 03-20-2024 End: 03-20-2024 Patient encounter procedure 03/20/2024 11:15 AM EST Office Visit [facility] [address] [place] [id number] Ernie Miller DO [address] [place], [place] [id number] [facility] Comment on above: Arrived Start: [...] unspecified formulation Ernie Miller DO Work Phone: [facility] Healthcare Payers Date Payer Category Payer Self-pay 2022 Other GENERIC OTHER [place] [employer] [id number] 2013 Medicare MEDICARE [id number] 1959 Medicare [id number] 1959 Unknown [id number] 1950 Unknown [id number] 2.16.840.1.746389.3.579.2.647 1950 Unknown [id number] 2.16.840.1.829151.3.579.2.593 1950 Unknown [id number] 2.16.840.1.995598.3.579.2.593 1948 Unknown [id number] 2.16.840.1.631053.3.579.2.593 1948 Unknown [id number] 2.16.840.1.755355.3.579.2.593 1948 Unknown [id number] 2.16.840.1.714625.3.579.2.593 1948 Unknown [id number] 2.16.840.1.782452.3.579.2.593 1948 Unknown [id number] 2.16.840.1.101635.3.579.2.593 1948 Unknown [id number] 2.16.840.1.183780.3.579.2.593 1948 Unknown [id number] 2.16.840.1.363019.3.579.2.593 1948 Unknown [id number] 2.16.840.1.308692.3.579.2.593 1948 Unknown [id number] 2.16.840.1.901704.3.579.2.593 1948 Unknown [id number] 2.16.840.1.045844.3.579.2.593 1948 Unknown [id number] 2.16.840.1.960352.3.579.2.1259 1948 Unknown [id number] 2.16.840.1.689034.3.579.2.1259 1948 Unknown [id number] 2.16.840.1.303120.3.579.2.1259 1948 Unknown [id number] 2.16.840.1.214435.3.579.2.1259 Unknown [id number] 2.16.840.1.664199.19 Unknown [id number] 2.16.840.1.694640.3.579.2.531 Unknown [id number] 2.16.840.1.605163.3.579.2.531 Unknown [id number] 2.16.840.1.616019.3.579.2.531 Unknown [id number] 2.16.840.1.036241.3.579.2.531 Social History Date Type Detail Facility Start: 04-04-2023 End: 03-20-2024 Sex Assigned At [facility] Other Start: 11-30-2022 End: 03-20-2024 Tobacco smoking status NHIS Never smoked tobacco [facility] Start: 04-04-2023 End: 03-20-2024 History of Social function [facility] Start: 1950 Sex assigned at Not on file N [facility] Start: 03-20-2024 Tobacco use and exposure Smokeless tobacco non-user [facility] Clinical Notes 04-22-2022 to [...] minutes and residual AHI of 3.9. Her Hartline Sleepiness scale is a 11. Well and she needs a order for new supplies sent over. Plan: Compliance was reviewed and she was compliant. Her epworth's sleepines scale and an 11 The patient was counseled on proper sleep hygiene and adequate hours of sleep. The patient was counseled on the risks of stroke, ME, and sudden with RICK, along with the [...] clinic: 3 mon documented in this encounter [facility] 01-08-2024 Note Continue carvedilol currently remains stable. [facility] 01-08-2024 Note Currently no concern ing symptoms and patient denies any palpitations. Continue carvedilol 12.5 mg twice daily. [facility] 01-08-2024 Note Hypertension is well -controlled currently. Continue carvedilol and hydrochlorothiazide Renal function and electrolytes are normal She does admit to occasional lightheadedness with low blood pressure denies any syncope or near syncope. Admits that typical days she does not hydrate well enough and likes to drink ice tea therefore we discussed adequate hydration. [facility] 01-08-2024 Note UTP CARDIOLOGY PROGR ESS [...] and likes t (more content not included)... [facility] 01-08-2024 Note Pt here for a [...] All other systems reviewed and are negative. [facility] 02-27-2023 Evaluation note Encounter Date Diagnosis [...] from surgery. 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 Activity as tolerated. Call with questions/anuradha rns. Provided AAOS hand out on hip conditioning and IT band exercises. [facility] Other 09-06-2023 Evaluation note* Encounter Date Diagnosis Assessment Notes Treatment Notes Treatment Clinical Notes Dec, History of total left knee replacement (ICD-10 - Z96.652) [facility] Other 08-07-2023 Evaluation note* Encounter Date Diagnosis [...] total left knee replacement (ICD-10 - Z96.652) [facility] Other 06-07-2023 Evaluation note* Encounter Date Diagnosis [...] meniscus of left knee (ICD-10 - M23.307) [facility] Other 06-02-2023 Evaluation note* Encounter Date Diagnosis Assessment Notes Treatment Notes Treatment Clinical Notes Sep, Primary osteoarthritis of left knee (ICD-10 - M17.12) [facility] Other 03-01-2023 NotePROCEDURE: XR KNEE LT 4V or > COMPARISON: 04/09/2021 HISTORY: Pain of left knee joint FINDINGS: BONES:No acute fracture or dislocation. 7 mm osteochondral injury medial femoral condyle. Tricompartmental osteoarthropathy most significant in the medial compartment SOFT TISSUES:Negative. No visible soft tissue swelling. EFFUSION:None visible. OTHER: Negative. IMPRESSION: Osteochondral injury medial femoral condyle Electronically authenticated by: LISET MEZA Date: 2022-06-22 17:46[facility]12-30-2022 Evaluation note* Encounter Date Diagnosis Assessment Notes [...] treatment plan Mar, Headache (ICD-10 - R51.9) [facility] Other Evaluation noteNo InformationNort [place] [employer] Other Evaluation note* Diagnosis RICK (obstructive sleep apnea)- Primary Obstructive sleep apnea (adult) (pediatric) Hypersomnia Hypersomnia, unspecified Snoring Other dyspnea and respiratory abnormality documented in this encounter [facility] N[facility]ative - Reported* Type Description Date Medical History hx of hypertension Surgical History tubiligation Surgical History [place] [facility] Hospitalization History vaginal child x 3 [facility] Other History general Narrative - Reported* Type Description Date Medical History hx of hypertension Medical History PVC Medical History osteoarthritis of the left knee Surgical History tubiligation Surgical History [place] Tooth Extraction Hospitalization History vaginal child x 3 [facility] Other History general Narrative - Reported* Type Description Date Medical History hx of hypertension Medical History PVC Medical History osteoarthritis of the left knee Surgical History tubiligation Surgical History [place] Tooth Extraction Surgical History left total knee arthroplasty Hospitalization History vaginal child x 3 [facility] Other Summary Purpose Family History No Family [...] and content) DATE CREATED AUTHOR 09/24/2020 [email or web address] [facility] DATE CREATED AUTHOR AUTHOR'S ORGANIZ ATION 11/18/2020 [facility] DATE CREATED AUTHOR AUTHOR'S ORGANIZ ATION 08/26/2022 [facility] DATE CREATED AUTHOR AUTHOR'S ORGANIZ ATION 05/13/2023 [facility] DATE CREATED AUTHOR AUTHOR'S ORGANIZ ATION 01/09/2024 [facility] DATE CREATED AUTHOR AUTHOR'S ORGANIZ ATION 03/23/2024 [facility] Special[facility] EPIC REASON FOR VISIT (unrecogniz ed section and content) Reason Comments Sleep Apnea Care Teams (unrecognized sec tion and content) Mds Nurse Relationship Specialty Start Date End Date Andie Forde MD [address] [place] [address] PCP - General Family Medicine 11/30/22 Mds Nurse Relationship Specialty Start Date End Date Andie Forde MD [address] [place] [address] PCP - General Family Medicine 11/30/22 FOR [...] THE PRIMARY CLINICAL RECORDS. [facility]. provides no warranty or guarantee of the accuracy or completeness of information in this document.
[2024-05-03 12:30] LABS: Bilirubin Urine NEGATIVE (NEGATIVE); Blood Urine NEGATIVE (NEGATIVE); Clarity Urine SL CLOUDY (CLEAR); Color Urine LT. YELLOW (YELLOW); Glucose Urine UA NEGATIVE (NEGATIVE); Ketones Urine NEGATIVE (NEGATIVE); Leukocyte Esterase Urine LARGE (NEGATIVE); Nitrite Urine NEGATIVE (NEGATIVE); Protein Urine NEGATIVE (NEG/TRACE); Urobilinogen Urine 0.2 EU/dL (0.2-1.0)
[2024-05-03 12:37] LABS: WBC Urine 20-50 #/HPF (NONE SEEN)
[2024-05-03 12:38] LABS: Bacteria Urine LARGE #/HPF (NONE SEEN); Crystals Seen? None Seen #/HPF (None Seen); Mucus Urine SMALL (NONE SEEN); RBC Urine NONE SEEN #/HPF (0-2); Squamous Epithelial Cell Urine FEW #/LPF (NONE/RARE)
[2024-05-03 12:43] LABS: Cast Seen? NONE SEEN #/LPF (NONE SEEN); Urine Culture Indicated ALREADY ORDERED
== END 2024-05-03 11:55 | disposition home or self-care (01) ==
LOC: LAB 11:54
PROVIDERS: PCP Family Medicine; Visit Provider Family Medicine
DX: N39.0 Urinary tract infection, site not specified (principal)
CPT/HCPCS: 81001; 87086; 87186

== ENCOUNTER 2024-05-06 09:15 | Outpatient (OUT) | payer MEDICARE, OTHER, SELFPAY ==
--- NOTE | 2024-05-06 09:23 | ECG_ITS ---
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
--- OUTSIDE RECORDS SUMMARY | 2024-05-06 09:31 | XMS_ITS | CCD ---
Author Organization [facility] Care Team Providers Care Loading And Unloading Supervisor Name Role Phone DOE VELEZ Attending Unavailable DOE VELEZ Admitting Unavailable NADIA FORDELAS Referring Unavailable ANDIE FORDE Primary Care Unavailable Linda Hall Unavailable GOPIY ., DR CHAVES Primary Care Unavailable HOY ., DR CHAVES Attending Unavailable HOY ., DR CHAVES Admitting Unavailable HOY ., DR CHAEVS Consulting Unavailable HOY ., DR CHAVES Primary [...] Hoy, Andie M Primary Care Unavailable Elma, Toáms A Attending Unavailable Elma, Tomás A Admitting Unavailable Gopiy, Andie M Primary Care Unavailable Elma, Tomás A Attending Unavailable Elma, Tomás A Admitting Unavailable Hoy, Andie M Primary Care Unavailable Elma, Tomás A Attending Unavailable Hoy, Andie M Primary Care Unavailable Elma, Tomás A Admitting Unavailable Elma, Tomás A Attending Unavailable TATIANNA ARANA Attending Unavailable Andie Forde MD Primary Care Provider [phone] FRANK VILLARREAL E Attending Unavailable RINJULIAN FRANK E Attending Unavailable RINJULIAN FRANK E Attending Unavailable ERNIE MILLER Attending Unavailable Allergies Allergy Classification Reported Allergen(s) Allergy Type Date of Onset Reaction(s) Facility Penicillins (antibiotic) (1 source) Penicillin Drug Allergy 1 [facility] Repository Tetracyclines (antibiotic) (1 source) Tetracyclines Drug Allergy 1 [facility] Repository (7 sources) Penicillin Drug Allergy Unknown [employer] Other (11 sources) Tetracycline; Translations: [TETRACYCLINE] Drug Allergy 2 Carlee celis [facility] Repository (2 sources) Penicillins; Translations: [PENICILLINS] Drug allergy (disorder) 4 [facility] Repository (1 source) Tetracycline Drug Allergy 4 [facility] Repository (1 source) Penicillins Drug allergy (disorder) 3 [facility] Repository (1 source) Tetracycline Drug Allergy 3 [facility] Repository (3 sources) Penicillins Drug Allergy 2 [facility] Healthcare (2 sources) levoFLOXacin Drug Allergy 4 [facility] Healthcare Medications Current Medications Medication [...] UNIT (7 sources) [facility] daily Vitamin D 1000 UNIT [...] Start: 09-09-2022 take 1 capsule by mo [facility] every twelve hours Clindamycin HCl [...] Range Facility Office Visiton 01-08-2024 Follow-up visit [id number] Glenis Perez 1950 F Date Provider Department Center 01/08/2024 Kirt-TATIANNA ARANA Family History Problem Relation Age of Onset Heart attack Mother Coronary artery disease Mother Other Brother Family Status - Relation Status Age at Mother Brother Level of Service:31114 ND OFFICE/OUTPATIENT ESTABLISHED SF MDM 10 MIN Normal [facility] XR knee LT 2Von 02-27-2023 XR knee LT 2V [facility] [address] [place] [address] XRay Report Signed Patient: Glenis Perez MR#: [id number] 40 : 1950 Acct:[id number] Age/Sex: 72 / F ADM Date: 02/27/23 Loc: [facility] Room: Type: [facility] Attending Dr: Tomás Wills DO Copies to: [...] Raúl Woo M.D.02/27/2023 3:08 PM Dictation Location: [place] [address] Transcribed By: [facility] 02/27/23 1508 Dictated By: Raúl Woo DO 02/27/23 1508 Signed By: 02/27/23 1508 Normal [facility] XR knee LT 2V [facility] [employer] Other XR knee LT 2V [facility] [employer] Other XR knee LT 2V [address] [place] [address] [employer] Other XR knee LT 2[place] [address] [facility] [employer] Other XR knee LT 2V XRay Report [place] [employer] Other XR knee LT 2V Signed [place] [employer] Other XR knee LT 2V Patient: Glenis Perez MR#: [id number] [facility] [employer] Other XR knee LT 2V 42 [facility] [employer] Other XR knee LT 2V : 1950 Acct:[id number] [employer] Other XR knee LT 2V Age/Sex: 72 / F ADM Date: 02/27/23 [employer] Other XR knee LT 2V [facility]: [facility]: [facility] Other XR knee LT 2V Attending Dr: Tomás Wills DO [employer] Other XR knee LT 2V Copies to: Tomás Wills DO [employer] Other XR knee LT 2V Ordering Provider: Tomás Wills DO [employer] Other XR knee LT 2V Date of Service: 02/27/23 [employer] Other XR knee LT 2V XR/XR knee LT 2V: Status post total left knee replacement [employer] Other XR knee LT 2V 2 views LEFT knee plain film [employer] Other XR knee LT 2V COMPARISON: 09/13/22 N [employer] Other XR knee LT 2V HISTORY: Status post LEFT total knee arthroplasty [employer] Other XR knee LT 2V ACUTE FINDINGS: None N [employer] Other XR knee LT 2V DEGENERATIVE CHANGE: Unremarkable [employer] Other XR knee LT 2V SOFT TISSUE FINDINGS : Unremarkable [employer] Other XR knee LT 2V JOINT EFFUSION: None N [employer] Other XR knee LT 2V POSTOP CHANGES: Stable hardware [employer] Other XR knee LT 2V BONE MINERALIZATION: Adequate [employer] Other XR knee LT 2V XR/XR knee LT 2V [employer] Other XR knee LT 2V IMPRESSION: Uncomplicated LEFT knee arthroplasty [employer] Other XR knee LT 2V Impression dictated by: Raúl Woo M.D.02/27/2023 3:08 PM [employer] Other XR knee LT 2V Dictation Location: [place] [address] [employer] Other XR knee LT 2V Transcribed By: PWS 02/27/23 [facility] [employer] Other XR knee LT 2V Dictated By: Raúl Woo DO 02/27/23 [facility] [employer] Other XR knee LT 2V Signed By: [employer] Other XR knee LT 2V 02/27/23 0849 [email or web address] Other [place] 09-13-2022 L - -------- Specimen: [id number] Received: 09/13/22 Status: LUZ Lynn Num: [id number] Spec Type: Surgical Subm Dr: Tomás Wills DO Tissues: A Joint/Knee (LT KNEE) Procedures: Gross/Micro L4, Decalcification -------- Age/ Patient Sex Location Account Attending Physician -------- Glenis Perez Ann 71/F [place] [id number] Tomás Wills DO -------- SPEC NUM: [id number] RECD: 09/13/22 STATUS: LUZ LYNN NUM: [id number] SETH: 09/13/22- [facility] DR: Tomás Wills DO ENTERED: 09/13/22 [facility] [address]: ANDREW TYPE: Surgical DEPT: S [...] is taken. Gross examination only. CPT Codes 27287 Gross Photo -------- -------- Specimen: [id number] Received: 09/13/22 Status: LUZ Lynn Num: [id number] Spec Type: Surgical Subm Dr: Tomás Wills DO Tissues: A Joint/Knee (LT KNEE) Procedures: Gross/Micro L4, Decalcification -------- Patient: Glenis Perez [id number] (Continued) -------- Signed (signature on file) Kendra Guzman MD 09/14/22 1033 Normal [facility] XR knee LT 2Von 09-13-2022 XR knee LT 2V [address] [address] XRay Report Signed Patient: Glenis Perez MR#: [id number] 40 : 1950 Acct:[id number] Age/Sex: 71 / F ADM Date: 09/13/22 Loc: [place] Room: Type: [facility] Attending Dr: Tomás Wills DO [...] Sameer Guy M.D.09/13/2022 3:01 PM Dictation Location: [place] [address] Transcribed By: [facility] 09/13/22 1501 Dictated By: Sameer Guy II, MD 09/13/22 1500 Signed By: 09/13/22 1501 [facility] PROF CHEM 8 (BAS METB)on Anion gap [Moles/Vol] 10.3 mmol/L Normal [facility] Comment on above: Performed By: #### B MP #### [facility] [address] [place] [address] Dr. Duong Alcaraz Calcium [Mass/Vol] 9.3 mg/dL Normal 8.5-10.1 [facility] Comment on above: Performed By: #### B MP #### [facility] [address] [place] [address] [address] Duong Alcaraz Chloride [Moles/Vol] 95 mmol/L Critically low 98-107 [facility] Comment on above: Performed By: #### B MP #### [facility] [address] [place] [address] [address] Duong Alcaraz CO2 [Moles/Vol] 30.6 mmol/L Normal 21.0-32.0 [facility] Comment on above: Performed By: #### B MP #### [facility] [address] [place] [address] [address] Duong Alcaraz Creatinine [Mass/Vol] 0.69 mg/dL Normal 0.55-1.02 [facility] Comment on above: Performed By: #### B MP #### [facility] [address] [place] [address] [address] Duong Alcaraz EGFR-AF ARMENIAN >60 Normal >=60 [facility] Comment on above: Performed By: #### B MP #### [facility] [address] [place] [address] [address] Duong Alcaraz EGFR-NON AF ARMENIAN >60 Normal >=60 [facility] Comment on above: Performed By: #### B MP #### [facility] [address] [place] [address] [address] Duong Alcaraz Glucose [Mass/Vol] 83 mg/dL Normal 74-106 [facility] Comment on above: Performed By: #### B MP #### [facility] [address] [place] [address] [address] Duong Alcaraz Potassium [Moles/Vol] 3.9 mmol/L Normal 3.5-5.1 [facility] Comment on above: Performed By: #### B MP #### [facility] [address] [place] [address] [address] Duong Alcaraz Sodium [Moles/Vol] 132 mmol/L Critically low 136-145 [facility] Comment on above: Performed By: #### B MP #### [facility] [address] [place] [address] [address] Duong Alcaraz Urea nitrogen [Mass/Vol] 12.0 mg/dL Normal 7.0-18.0 [facility] Comment on above: Performed By: #### B MP #### [facility] [address] [place] [address] [address] Duong Alcaraz Urea nitrogen/Creatinine [Mass ratio] 17.4 mg/mg Normal [facility] Comment on above: Performed By: #### B MP #### [facility] [address] [place] [address] [address] Duong Alcaraz CMP with reflex to A1Con 04- 21-2023 Albumin [Mass/Vol] 3.9 g/dL Normal 3.5-5.7 [facility] Comment on above: Performed By: #### C BC, CMP wRFX A1C #### [facility] [address] Albumin/Globulin [Mass ratio] 1.5 {ratio} Normal [facility] Comment on above: Performed By: #### C BC, CMP wRFX A1C #### [facility] [address] ALP [Catalytic activity/Vol] 34 U/L Normal 34-104 [facility] Comment on above: Result Comment: PERF ORMED BY: [place] [address] PATHOLOGIST H[employer]IC[employer] FARMER YAMILETH PERRY M.D. Performed By: #### C BC, CMP wRFX A1C #### [address] ALT [Catalytic activity/Vol] 14 U/L Normal 7-52 [facility] Comment on above: Performed By: #### C BC, CMP wRFX A1C #### [facility] [address] [place] [address] Anion gap [Moles/Vol] 11.1 mmol/L Normal 6.0-15.0 [facility] Comment on above: Performed By: #### C BC, CMP wRFX A1C #### [facility] [address] [place] [address] AST [Catalytic activity/Vol] 18 U/L Normal 13-39 [facility] Comment on above: Performed By: #### C BC, CMP wRFX A1C #### [facility] [address] [place] [address] [place] Bilirubin [Mass/Vol] 0.6 mg/dL Normal 0.3-1.0 [facility] Comment on above: Performed By: #### C BC, CMP wRFX A1C #### [facility] [address] Calcium [Mass/Vol] 8.4 mg/dL Low 8.6-10.3 [facility] Comment on above: Performed By: #### C BC, CMP wRFX A1C #### [facility] [address] [place] [address] [place] Chloride [Moles/Vol] 94 mmol/L Low 98-107 [facility] Comment on above: Performed By: #### C BC, CMP wRFX A1C #### [facility] [address] [place] [address] [place] CO2 [Moles/Vol] 28.0 mmol/L Normal 21.0-31.0 [facility] Comment on above: Performed By: #### C BC, CMP wRFX A1C #### [address] Creatinine [Mass/Vol] 0.68 mg/dL Normal 0.60-1.20 [facility] Comment on above: Performed By: #### C BC, CMP wRFX A1C #### [place] [address] [place] GFR/1.73 sq M.predicted MDRD (S/P/Bld) [Vol rate/Area] mL/min/{1.73_m2} Normal [facility] Comment on above: Performed By: #### C BC, CMP wRFX A1C #### [address] Globulin (S) [Mass/Vol] 2.6 g/dL Normal [facility] Comment on above: Performed By: #### C BC, CMP wRFX A1C #### [place] [address] [place] Glucose [Mass/Vol] 88 mg/dL Normal 70-100 [facility] Comment on above: Performed By: #### C BC, CMP wRFX A1C #### [facility] [address] [place] [address] [place] Potassium [Moles/Vol] 4.1 mmol/L Normal 3.5-5.1 [facility] Comment on above: Performed By: #### C BC, CMP wRFX A1C #### [place] [id number] [place] Protein [Mass/Vol] 6.5 g/dL Normal 6.4-8.9 [facility] Comment on above: Performed By: #### C BC, CMP wRFX A1C #### [facility] [address] Sodium [Moles/Vol] 129 mmol/L Low 136-145 [facility] Comment on above: Performed By: #### C BC, CMP wRFX A1C #### [facility] [address] [place] [address] [place] Urea nitrogen [Mass/Vol] 19 mg/dL Normal 7-25 [facility] Comment on above: Performed By: #### C BC, CMP wRFX A1C #### [facility] [address] Complete Blood Count Auto Di ffon 08-12-2022 Basophils (Bld) [#/Vol] 0.1 10*3/uL Normal 0.0-0.2 [facility] Comment on above: Result Comment: PERF ORMED BY: [place] [address] PATHOLOGIST [employer] FARMER YAMILETH PERRY M.D. Performed By: #### C BC, CMP wRFX A1C #### [place] [address] [place] Basophils/100 WBC (Bld) 1.3 % Normal . [facility] Comment on above: Performed By: #### C BC, CMP wRFX A1C #### [facility] [address] [place] [address] [place] Eosinophils (Bld) [#/Vol] 0.1 10*3/uL Normal 0.0-0.45 [facility] Comment on above: Performed By: #### C BC, CMP wRFX A1C #### [facility] [address] [place] [address] [place] Eosinophils/100 WBC (Bld) 1.6 % Normal . [facility] Comment on above: Performed By: #### C BC, CMP wRFX A1C #### [facility] [address] Erythrocyte distribution width (RBC) [Ratio] 13.6 % Normal 11.9-15.3 [facility] Comment on above: Performed By: #### C BC, CMP wRFX A1C #### [facility] [address] Hematocrit (Bld) [Volume fraction] 35.9 % Normal 34.0-46.4 [facility] Comment on above: Performed By: #### C BC, CMP wRFX A1C #### [address] Hemoglobin (Bld) [Mass/Vol] 12.6 g/dL Normal 11.8-15.4 [facility] Comment on above: Performed By: #### C BC, CMP wRFX A1C #### [address] Lymphocytes (Bld) [#/Vol] 0.7 10*3/uL Low 1.00-4.8 [facility] Comment on above: Performed By: #### C BC, CMP wRFX A1C #### [address] Lymphocytes/100 WBC (Bld) 14.6 % Normal . [facility] Comment on above: Performed By: #### C BC, CMP wRFX A1C #### [address] MCH (RBC) [Entitic mass] 31.8 pg Normal 24.7-34.3 [facility] Comment on above: Performed By: #### C BC, CMP wRFX A1C #### [place] [address] [place] MCV (RBC) [Entitic vol] 90.7 fL Normal 80-100 [facility] Comment on above: Performed By: #### C BC, CMP wRFX A1C #### [address] Mean Corpuscular HGB Conc 35.0 g/dL Normal 32.0-35.0 [facility] Comment on above: Performed By: #### C BC, CMP wRFX A1C #### [facility] [address] [place] [address] [place] Monocytes (Bld) [#/Vol] 0.5 10*3/uL Normal 0.0-0.8 [facility] Comment on above: Performed By: #### C BC, CMP wRFX A1C #### [facility] [address] [place] [address] [place] Monocytes/100 WBC (Bld) 10.4 % Normal . [facility] Comment on above: Performed By: #### C BC, CMP wRFX A1C #### [facility] [address] [place] [address] Neutrophils (Bld) [#/Vol] 3.7 10*3/uL Normal 1.8-7.7 [facility] Comment on above: Performed By: #### C BC, CMP wRFX A1C #### [address] Neutrophils/100 WBC (Bld) 72.1 % Normal . [facility] Comment on above: Performed By: #### C BC, CMP wRFX A1C #### [facility] [address] [place] [address] [place] NRBC% 0.0 /100{WBC} Normal 0-0.5 [facility] Comment on above: Performed By: #### C BC, CMP wRFX A1C #### [facility] [address] [place] [address] [place] Platelet mean volume (Bld) [Entitic vol] 6.2 fL Low 6.3-10.7 [facility] Comment on above: Performed By: #### C BC, CMP wRFX A1C #### [facility] [address] [place] [address] [place] Platelets (Bld) [#/Vol] 241 10*3/uL Normal 150-450 [facility] Comment on above: Performed By: #### C BC, CMP wRFX A1C #### [facility] [address] [place] [address] [place] RBC (Bld) [#/Vol] 3.96 10*6/uL Normal 3.60-5.00 [facility] Comment on above: Performed By: #### C BC, CMP wRFX A1C #### [facility] [address] WBC (Bld) [#/Vol] 5.1 10*3/uL Normal 3.8-11.6 [facility] Comment on above: Performed By: #### C BC, CMP wRFX A1C #### [facility] [address] [place] [address] [place] Dipstick and Microscopicon 0 08-12-2022 Appearance (U) Clear Normal Clear [facility] Comment on above: Order Comment: Name Collection Type:: Clean-Voided Midstream Performed By: #### A DDONUAPLUS #### [address] Bacteria,Urine None Seen Normal None Seen [facility] Comment on above: Order Comment: Name Collection Type:: Clean-Voided Midstream Performed By: #### A DDONUAPLUS #### [place] [address] [place] Bilirubin,Urine Negative Normal Negative [facility] Comment on above: Order Comment: Name Collection Type:: Clean-Voided Midstream Performed By: #### A DDONUAPLUS #### [place] [address] [place] Color (U) Yellow Normal Yellow [facility] Comment on above: Order Comment: Name Collection Type:: Clean-Voided Midstream Performed By: #### A DDONUAPLUS #### [place] [address] [place] Glucose Ql (U) Normal Normal Normal [facility] Comment on above: Order Comment: Name Collection Type:: Clean-Voided Midstream Performed By: #### A DDONUAPLUS #### [place] [address] [place] Hyaline Casts,Urine None Seen Normal 0-8 [facility] Comment on above: Order Comment: Name Collection Type:: Clean-Voided Midstream Result Comment: PERF ORMED BY: [place] [address] PATHOLOGIST [employer] FARMER YAMILETH PERRY M.D. Performed By: #### A DDONUAPLUS #### [place] [address] [place] Ketones Ql (U) Negative Normal Negative [facility] Comment on above: Order Comment: Name Collection Type:: Clean-Voided Midstream Performed By: #### A DDONUAPLUS #### [address] Leukocyte esterase Test strip Ql (U) 3+ High Negative [facility] Comment on above: Order Comment: Name Collection Type:: Clean-Voided Midstream Performed By: #### A DDONUAPLUS #### [place] [address] [place] Nitrite,Urine Negative Normal Negative [facility] Comment on above: Order Comment: Name Collection Type:: Clean-Voided Midstream Performed By: #### A DDONUAPLUS #### [place] [address] [place] Occult Blood,Urine Negative Normal Negative [facility] Comment on above: Order Comment: Name Collection Type:: Clean-Voided Midstream Result Comment: PERF ORMED BY: [place] [address] PATHOLOGIST H[employer]IC[employer] FARMER YAMILETH PERRY M.D. Performed By: #### A DDONUAPLUS #### [place] [address] [place] pH (U) 7.0 [pH] Normal 5.0-9.0 [facility] Comment on above: Order Comment: Name Collection Type:: Clean-Voided Midstream Performed By: #### A DDONUAPLUS #### [place] [address] [place] Protein,Urine Negative Normal Negative [facility] Comment on above: Order Comment: Name Collection Type:: Clean-Voided Midstream Performed By: #### A DDONUAPLUS #### [address] RBC LM.HPF (Urine sed) [#/Area] 0 /[HPF] Normal 0-4 [facility] Comment on above: Order Comment: Name Collection Type:: Clean-Voided Midstream Performed By: #### A DDONUAPLUS #### [address] Specificy [place],Urine 1.007 Normal 1.001-1.030 [facility] Comment on above: Order Comment: Name Collection Type:: Clean-Voided Midstream Performed By: #### A DDONUAPLUS #### [address] Squamous Epithelial Cell,Urine None Seen Normal 0-2 [facility] Comment on above: Order Comment: Name Collection Type:: Clean-Voided Midstream Performed By: #### A DDONUAPLUS #### [address] Urobilinogen,Urine Normal Normal Normal [facility] Comment on above: Order Comment: Name Collection Type:: Clean-Voided Midstream Performed By: #### A DDONUAPLUS #### [address] WBC,Urine 3-4 Normal 0-4 [facility] Comment on above: Order Comment: Name Collection Type:: Clean-Voided Midstream Performed By: #### A DDONUAPLUS #### [address] MRI KNEE LT WO CONon 023 [...] by: GRANT ORTEGA Date: 2022-07-04 12:13 Normal [facility] COVID/FLU/RSV RT-PCRon 04-22 SARS-CoV-2 (COVID-19) RNA CASH+probe Ql (Unsp spec) Negative [employer] Other COVID/FLU/RSV RT-PCR Negative [employer] Other CULTURE URINEon 04-14-2022 CULTURE URINE Isolate [...] Trimethoprim/Sulfamet hoxazole <=20 S F Normal [facility] Comment on above: Performed By: #### U RCX ####[facility] [id number] [place] [address]Dr. Duong Alcaraz CALCIUMon 04-01-2022 Calcium [Mass/Vol] 9.4 mg/dL Normal 8.5-10.1 [facility] Comment on above: Performed By: #### C A, CREA ####[facility] [id number] [place] [address]Dr. Duong Alcaraz CREATININEon 04-01-2022 Creatinine [Mass/Vol] 0.73 mg/dL Normal 0.55-1.02 [facility] Comment on above: Performed By: #### C A, CREA ####[facility] [address] [place], [place] [address]Dr. Duong Alcaraz EGFR-AF ARMENIAN >60 Normal >=60 [facility] Comment on above: Performed By: #### C A, CREA ####[facility] [id number] [place] [address]Dr. Duong Alcaraz EGFR-NON AF ARMENIAN >60 Normal >=60 [facility] Comment on above: Performed By: #### C A, CREA ####[facility] [address] [place] [address]Dr. Duong Alcaraz PROF CHEM 8 (BAS METB)on Anion gap [Moles/Vol] 12.5 mmol/L Normal [facility] Comment on above: Performed By: #### B MP #### [facility] [address] [place] [address] Dr. Doung Alcaraz Calcium [Mass/Vol] 8.8 mg/dL Normal 8.5-10.1 [facility] Comment on above: Performed By: #### B MP #### [facility] [address] [place] [address] [address] Duong Alcaraz Chloride [Moles/Vol] 95 mmol/L Critically low 98-107 [facility] Comment on above: Performed By: #### B MP #### [facility] [address] [place] [address] [address] Duong Alcaraz CO2 [Moles/Vol] 27.3 mmol/L Normal 21.0-32.0 [facility] Comment on above: Performed By: #### B MP #### [facility] [address] [place] [address] [address] Duong Alcaraz Creatinine [Mass/Vol] 0.68 mg/dL Normal 0.55-1.02 [facility] Comment on above: Performed By: #### B MP #### [facility] [address] [place] [address] [address] Duong Alcaraz EGFR-AF ARMENIAN >60 Normal >=60 [facility] Comment on above: Performed By: #### B MP #### [facility] [address] [place] [address] [address] Duong Alcaraz EGFR-NON AF ARMENIAN >60 Normal >=60 [facility] Comment on above: Performed By: #### B MP #### [facility] [address] [address] [address] Duong Alcaraz Glucose [Mass/Vol] 98 mg/dL Normal 74-106 [facility] Comment on above: Performed By: #### B MP #### [facility] [address] [address] [address] Duong Alcaraz Potassium [Moles/Vol] 3.8 mmol/L Normal 3.5-5.1 [facility] Comment on above: Performed By: #### B MP #### [facility] [address] [address] [address] Duong Alcaraz Sodium [Moles/Vol] 131 mmol/L Critically low 136-145 [facility] Comment on above: Performed By: #### B MP #### [facility] [address] [address] [address] Duong Alcaraz Urea nitrogen [Mass/Vol] 14.0 mg/dL Normal 7.0-18.0 [facility] Comment on above: Performed By: #### B MP #### [facility] [address] [place] [address] Dr. Duong Alcaraz Urea nitrogen/Creatinine [Mass ratio] 20.6 mg/mg Normal [facility] Comment on above: Performed By: #### B MP #### [facility] [address] [place] [address] Dr. Duong Alcaraz BNPon 11-12-2021 Natriuretic peptide B (Bld) [Mass/Vol] 151.0 pg/mL Normal <=900.0 [facility] Comment on above: Performed By: #### C MP, BNP #### [facility] [address] [place] [address] Dr. Duong Alcaraz CBC AUTO DIFFon 11-12-2021 BASO # 0.1 103/ul Normal 0.0-0.1 [facility] Comment on above: Performed By: #### C BC ####[facility] [address] [place], [place] [address]DrClovis Alcaraz Basophils/100 WBC (Bld) 1.3 % Normal 0.2-2.0 [facility] Comment on above: Performed By: #### C BC ####[facility] [address] [place], [place] [address]DrClovis Alcaraz EO # 0.2 103/ul Normal 0.0-0.7 [facility] Comment on above: Performed By: #### C BC ####[facility] [address] [place], [place] [address]DrClovis Alcaraz Eosinophils/100 WBC (Bld) 4.4 % Normal 0.9-7.0 [facility] Comment on above: Performed By: #### C BC ####[facility] [address] [place], [place] [address]Dr. Duong Alcaraz Erythrocyte distribution width (RBC) [Ratio] 12.3 % Normal 11.0-15.0 [facility] Comment on above: Performed By: #### C BC ####[facility] [address] [place], [place] [address]DrClovis Alcaraz Hematocrit (Bld) [Volume fraction] 36.4 % Normal 36.0-48.0 [facility] Comment on above: Performed By: #### C BC ####[facility] [address] [id number]. Duong Alcaraz Hemoglobin (Bld) [Mass/Vol] 12.8 g/dL Normal 12.0-16.0 [facility] Comment on above: Performed By: #### C BC ####[facility] [id number]. Selenastevo Kieran IG # 0.02 10e3/ul Normal 0.00-0.03 [facility] Comment on above: Performed By: #### C BC ####[facility] [address] [id number]. Duong Alcaraz IG % 0.5 % Normal 0.0-0.5 [facility] Comment on above: Performed By: #### C BC ####[facility] [address] [address]Dr. Duong Alcaraz LYMPH # 0.8 103/ul Critically low 1.2-3.8 [facility] Comment on above: Performed By: #### C BC ####[facility] [address] [id number]. Duong Alcaraz Lymphocytes/100 WBC (Bld) 19.5 % Critically low 20.5-60.0 [facility] Comment on above: Performed By: #### C BC ####[facility] [address] [id number]. Duong Alcaraz MANUAL DIFF REQ NO Normal [facility] Comment on above: Performed By: #### C BC ####[facility] [address] [phone]. Duong Kieran MCH (RBC) [Entitic mass] 31.7 pg Normal 26.7-34.0 [facility] Comment on above: Performed By: #### C BC ####[facility] [address] [phone]. Selenastevo Alcaraz MCHC (RBC) [Mass/Vol] 35.2 g/dL Normal 29.9-35.2 [facility] Comment on above: Performed By: #### C BC ####[facility] [address] [phone]. Duong Alcaraz MCV (RBC) [Entitic vol] 90.1 fL Normal 81.0-99.0 [facility] Comment on above: Performed By: #### C BC ####[facility] [address] [phone]. Duong Alcaraz MONO # 0.5 103/ul Normal 0.3-0.8 [facility] Comment on above: Performed By: #### C BC ####[facility] [address] [phone]. Duong Alcaraz Monocytes/100 WBC (Bld) 12.3 % Critically high 1.7-12.0 [facility] Comment on above: Performed By: #### C BC ####[facility] [address] [place], [place] [address]Dr. Duong Alcaraz NEUT # 2.4 103/ul Normal 1.4-6.5 [facility] Comment on above: Performed By: #### C BC ####[facility] [address] [phone]. Duong Alcaraz Neutrophils/100 WBC (Bld) 62.0 % Normal 43.0-75.0 [facility] Comment on above: Performed By: #### C BC ####[facility] [address] [phone]. Duong Alcaraz Platelet mean volume (Bld) [Entitic vol] 7.8 fL Critically low 9.5-13.5 [facility] Comment on above: Performed By: #### C BC ####[facility] [address] [phone]. Duong Alcaraz PLT 183 103/ul Normal 150-450 [facility] Comment on above: Performed By: #### C BC ####[facility] [address] [phone]. Duong Kieran RBC 4.04 106/ul Critically low 4.20-5.40 [facility] Comment on above: Performed By: #### C BC ####[facility] [address] [place], [place] [address]IgDr. Duong Alcaraz WBC 3.9 103/ul Critically low 4.0-11.0 [facility] Comment on above: Performed By: #### C BC ####[facility] [address] [place], [place] [address]Dr. Duong Alcaraz PROF 14(COMP METB)on 022 Albumin [Mass/Vol] 3.4 g/dL Normal 3.4-5.0 [facility] Comment on above: Performed By: #### C MP, BNP #### [facility] [address] [address] [address] Duong Alcaraz Albumin/Globulin [Mass ratio] 0.9 {ratio} Normal [facility] Comment on above: Performed By: #### C MP, BNP #### [facility] [address] [address] [address] Duong Alcaraz ALP [Catalytic activity/Vol] 33 U/L Critically low 46-116 [facility] Comment on above: Performed By: #### C MP, BNP #### [facility] [address] [address] [address] Duong Alcaraz ALT [Catalytic activity/Vol] 21 U/L Normal 14-59 [facility] Comment on above: Performed By: #### C MP, BNP #### [facility] [address] [address] [address] Duong Alcaraz Anion gap [Moles/Vol] 8.0 mmol/L Normal [facility] Comment on above: Performed By: #### C MP, BNP #### [facility] [address] [address] [address] Duong Alcaraz AST [Catalytic activity/Vol] 26 U/L Normal 15-37 [facility] Comment on above: Performed By: #### C MP, BNP #### [facility] [address] [address] [address] Duong Alcaraz Bilirubin [Mass/Vol] 0.6 mg/dL Normal 0.2-1.0 [facility] Comment on above: Performed By: #### C MP, BNP #### [facility] [address] [address] [address] Duong Alcaraz Calcium [Mass/Vol] 8.8 mg/dL Normal 8.5-10.1 [facility] Comment on above: Performed By: #### C MP, BNP #### [facility] [address] [address] [address] Duong Alcaraz Chloride [Moles/Vol] 98 mmol/L Normal 98-107 [facility] Comment on above: Performed By: #### C MP, BNP #### [facility] [address] [address] [address] Duong Alcaraz CO2 [Moles/Vol] 29.7 mmol/L Normal 21.0-32.0 [facility] Comment on above: Performed By: #### C MP, BNP #### [facility] [address] [place] [address] Dr. Duong Alcaraz Creatinine [Mass/Vol] 0.71 mg/dL Normal 0.55-1.02 [facility] Comment on above: Performed By: #### C MP, BNP #### [facility] [address] [place] [address] Dr. Duong Alcaraz EGFR-AF ARMENIAN >60 Normal >=60 [facility] Comment on above: Performed By: #### C MP, BNP #### [facility] [address] [address] [address] Duong Alcaraz EGFR-NON AF ARMENIAN >60 Normal >=60 [facility] Comment on above: Performed By: #### C MP, BNP #### [facility] [address] [address] [address] Duong Alcaraz Globulin (S) [Mass/Vol] 3.8 g/dL Normal [facility] Comment on above: Performed By: #### C MP, BNP #### [facility] [address] [address] [address] Duong Alcaraz Glucose [Mass/Vol] 94 mg/dL Normal 74-106 [facility] Comment on above: Performed By: #### C MP, BNP #### [facility] [address] [address] [address] Duong Alcaraz Potassium [Moles/Vol] 3.7 mmol/L Normal 3.5-5.1 [facility] Comment on above: Performed By: #### C MP, BNP #### [facility] [address] [address] [address] Duong Alcaraz Protein [Mass/Vol] 7.2 g/dL Normal 6.4-8.2 [facility] Comment on above: Performed By: #### C MP, BNP #### [facility] [address] [address] [address] Duong Alcaraz Sodium [Moles/Vol] 132 mmol/L Critically low 136-145 [facility] Comment on above: Performed By: #### C MP, BNP #### [facility] [address] [place] [address] Dr. Duong Alcaraz Urea nitrogen [Mass/Vol] 14.0 mg/dL Normal 7.0-18.0 [facility] Comment on above: Performed By: #### C MP, BNP #### [facility] [address] [address] [address] Duong Alcaraz Urea nitrogen/Creatinine [Mass ratio] 19.7 mg/mg Normal [facility] Comment on above: Performed By: #### C MP, BNP #### [facility] [address] [place] [address] Dr. Duong Alcaraz ECHOCARDIO M/2D COMPLETEon 0 11-03-2021 ECHOCARDIO M/2D COMPLETE Patient: GLENIS PEREZ Exam Date: 11/03/2021 : 1950 Gender:F Ordering : PARUL FITZPATRICK Admission #: [id number] Family : DR ANDIE FORDE . Order #: [id number] CLICK HERE TO VIEW EXAM ECHOCARDIOGRAM REPORT [...] Federico Riley M.D. on 11/03/2021 at 21:34 [facility] BNPon 10-04-2021 Natriuretic peptide B (Bld) [Mass/Vol] 200.0 pg/mL Normal <=900.0 [facility] Comment on above: Performed By: #### B SCABBLER, TSH, LIPID, CMP, T7 ####[facility] [address] [place], [place] [address]ChDr. Duong Alcaraz CBC AUTO DIFFon 10-04-2021 BASO # 0.1 103/ul Normal 0.0-0.1 [facility] Comment on above: Performed By: #### C BC #### [facility] [address] [address] [address] Duong Alcaraz Basophils/100 WBC (Bld) 1.2 % Normal 0.2-2.0 [facility] Comment on above: Performed By: #### C BC #### [facility] [address] [address] [address] Duong Alcaraz EO # 0.1 103/ul Normal 0.0-0.7 [facility] Comment on above: Performed By: #### C BC #### [facility] [address] [address] [address] Duong Alcaraz Eosinophils/100 WBC (Bld) 2.8 % Normal 0.9-7.0 [facility] Comment on above: Performed By: #### C BC #### [facility] [address] [address] [address] Duong Alcaraz Erythrocyte distribution width (RBC) [Ratio] 12.2 % Normal 11.0-15.0 [facility] Comment on above: Performed By: #### C BC #### [facility] [address] [address] [address] Duong Alcaraz Hematocrit (Bld) [Volume fraction] 37.0 % Normal 36.0-48.0 [facility] Comment on above: Performed By: #### C BC #### [facility] [address] [address] [address] Duong Alcaraz Hemoglobin (Bld) [Mass/Vol] 12.6 g/dL Normal 12.0-16.0 [facility] Comment on above: Performed By: #### C BC #### [facility] [address] [address] [address] Duong Alcaraz IG # 0.03 10e3/ul Normal 0.00-0.03 [facility] Comment on above: Performed By: #### C BC #### [facility] [address] [place] [address] Dr. Duong Alcaraz IG % 0.7 % Critically high 0.0-0.5 [facility] Comment on above: Performed By: #### C BC #### [facility] [address] [place] [address] Dr. Duong Alcaraz LYMPH # 0.7 103/ul Critically low 1.2-3.8 [facility] Comment on above: Performed By: #### C BC #### [facility] [address] [place] [address] Dr. Duong Alcaraz Lymphocytes/100 WBC (Bld) 16.0 % Critically low 20.5-60.0 [facility] Comment on above: Performed By: #### C BC #### [facility] [address] [place] [address] Dr. Duong Alcaraz MANUAL DIFF REQ NO Normal [facility] Comment on above: Performed By: #### C BC #### [facility] [address] [place] [address] Dr. Duong Alcaraz MCH (RBC) [Entitic mass] 31.4 pg Normal 26.7-34.0 [facility] Comment on above: Performed By: #### C BC #### [facility] [address] [place] [address] Dr. Duong Alcaraz MCHC (RBC) [Mass/Vol] 34.1 g/dL Normal 29.9-35.2 [facility] Comment on above: Performed By: #### C BC #### [facility] [address] [place] [address] Dr. Duong Alcaraz MCV (RBC) [Entitic vol] 92.3 fL Normal 81.0-99.0 [facility] Comment on above: Performed By: #### C BC #### [facility] [address] [place] [address] Dr. Duong Alcaraz MONO # 0.5 103/ul Normal 0.3-0.8 [facility] Comment on above: Performed By: #### C BC #### [facility] [address] [address] [address] Duong Alcaraz Monocytes/100 WBC (Bld) 11.5 % Normal 1.7-12.0 [facility] Comment on above: Performed By: #### C BC #### [facility] [address] [address] [address] Duong Alcaraz NEUT # 2.9 103/ul Normal 1.4-6.5 [facility] Comment on above: Performed By: #### C BC #### [facility] [address] [place] [address] Dr. Duong Alcaraz Neutrophils/100 WBC (Bld) 67.8 % Normal 43.0-75.0 [facility] Comment on above: Performed By: #### C BC #### [facility] [address] [place] [address] Dr. Duong Alcaraz Platelet mean volume (Bld) [Entitic vol] 8.2 fL Critically low 9.5-13.5 [facility] Comment on above: Performed By: #### C BC #### [facility] [address] [place] [address] Dr. Duong Alcaraz PLT 191 103/ul Normal 150-450 [facility] Comment on above: Performed By: #### C BC #### [facility] [address] [address] [address] Duong Alcaraz RBC 4.01 106/ul Critically low 4.20-5.40 [facility] Comment on above: Performed By: #### C BC #### [facility] [address] [place] [address] Dr. Duong Alcaraz WBC 4.3 103/ul Normal 4.0-11.0 [facility] Comment on above: Performed By: #### C BC #### [facility] [address] [place] [address] Dr. Duong Alcaraz FREE THYROXINE INDEX T7on FTI 3.01 Normal 1.30-4.50 [facility] Comment on above: Performed By: #### B SCABBLER, TSH, LIPID, CMP, T7 ####[facility] [address] [id number] Alcaraz T3U 35.0 % Normal 30.0-39.0 [facility] Comment on above: Performed By: #### B SCABBLER, TSH, LIPID, CMP, T7 ####[facility] [address] [id number] Alcaraz T4 [Mass/Vol] 8.60 ug/dL Normal 4.80-13.90 [facility] Comment on above: Performed By: #### B SCABBLER, TSH, LIPID, CMP, T7 ####[facility] [address] [address]DrClovis Alcaraz GLYCOHEMOGLOBIN A1Con 2021 ADA RECOMMENDATION SEE BELOW Normal [facility] Comment on above: Result Comment: ADA RECOMMENDED LIMIT 4.0 - 6.0 ADA THERAPEUTIC TARGET < 7.0 ACTION SUGGESTED > 7.0 Performed By: #### A 1C #### [facility] [address] [address] [address] Duong Alcaraz Glucose [Mass/Vol] 108 mg/dL Normal [facility] Comment on above: Performed By: #### A 1C #### [facility] [address] [address] [address] Duong Alcaraz HbA1c (Bld) [Mass fraction] 5.4 % Normal 4.5-6.2 [facility] Comment on above: Performed By: #### A 1C #### [facility] [address] [address] [address] Duong Alcaraz IRONon 10-04-2021 Iron [Mass/Vol] 93.0 ug/dL Normal 50.0-170.0 [facility] Comment on above: Performed By: #### I SHARRON ####[facility] [address] [address]Dr. Duong Alcaraz LIPID PROFILEon 10-04-2021 CHOL-HDL RATIO NORM SEE BELOW Normal [facility] Comment on above: Result Comment: 3.3 - 4.4 LOW RISK 4.4 - 7.1 AVERAGE RISK 7.1 - 11.0 MODERATE RISK >11.0 HIGH RISK Performed By: #### B SCABBLER, TSH, LIPID, CMP, T7 ####[facility] [address] [place], [place] [address]Ky. Duong Alcaraz Cholesterol [Mass/Vol] 182 mg/dL Normal <=200 [facility] Comment on above: Performed By: #### B SCABBLER, TSH, LIPID, CMP, T7 ####[facility] [address] [phone]. Duong Alcaraz Cholesterol in HDL [Mass/Vol] 69 mg/dL Critically high 40-60 [facility] Comment on above: Performed By: #### B SCABBLER, TSH, LIPID, CMP, T7 ####[facility] [address] [phone]. Duong Alcaraz Cholesterol in LDL [Mass/Vol] 107.6 mg/dL Normal [facility] Comment on above: Performed By: #### B SCABBLER, TSH, LIPID, CMP, T7 ####[facility] [address] [phone]. Duong Alcaraz Cholesterol.total/C holesterol in HDL [Mass ratio] 2.6 {ratio} Normal [facility] Comment on above: Performed By: #### B SCABBLER, TSH, LIPID, CMP, T7 ####[facility] [address] [phone]. Duong Alcaraz HDL NORMAL > or = 60 mg/dl - LO W CARDIOVASCULAR RISK <40 mg/dl - HIGH CARDIOVASCULAR RISK Normal [facility] Comment on above: Performed By: #### B SCABBLER, TSH, LIPID, CMP, T7 ####[facility] [address] [phone]. Duong Alcaraz LDL CALC NORMAL SEE BELOW Normal [facility] Comment on above: Result Comment: <100 mg/dl OPTIMAL 100 - 129 mg/dl NEAR OR ABOVE OPTIMAL 130 - 159 mg/dl BORDERLINE HIGH 160 - 189 mg/dl HIGH >190 mg/dl VERY HIGH Performed By: #### B SCABBLER, TSH, LIPID, CMP, T7 ####[facility] [address] [place], [place] [address]ClDr. Duong Alcaraz Triglyceride [Mass/Vol] 27 mg/dL Normal <=150 [facility] Comment on above: Performed By: #### B SCABBLER, TSH, LIPID, CMP, T7 ####[facility] [address] [place], [place] [address]XqDr. Duong Alcaraz VLDL CALC 5.4 mg/dL Normal [facility] Comment on above: Performed By: #### B SCABBLER, TSH, LIPID, CMP, T7 ####[facility] [address] [phone]. Duong Alcaraz PROF 14(COMP METB)on 022 Albumin [Mass/Vol] 3.5 g/dL Normal 3.4-5.0 [facility] Comment on above: Performed By: #### B SCABBLER, TSH, LIPID, CMP, T7 #### [facility] [address] [address] [address] Duong Alcaraz Albumin/Globulin [Mass ratio] 1.0 {ratio} Normal [facility] Comment on above: Performed By: #### B SCABBLER, TSH, LIPID, CMP, T7 #### [facility] [address] [place] [address] Dr. Duong Alcaraz ALP [Catalytic activity/Vol] 34 U/L Critically low 46-116 [facility] Comment on above: Performed By: #### B SCABBLER, TSH, LIPID, CMP, T7 #### [facility] [address] [address] [address] Duong Alcaraz ALT [Catalytic activity/Vol] 22 U/L Normal 14-59 [facility] Comment on above: Performed By: #### B SCABBLER, TSH, LIPID, CMP, T7 #### [facility] [address] [address] [address] Duong Alcaraz Anion gap [Moles/Vol] 12.3 mmol/L Normal [facility] Comment on above: Performed By: #### B SCABBLER, TSH, LIPID, CMP, T7 #### [facility] [address] [place] [address] Dr. Duong Alcaraz AST [Catalytic activity/Vol] 19 U/L Normal 15-37 [facility] Comment on above: Performed By: #### B SCABBLER, TSH, LIPID, CMP, T7 #### [facility] [address] [address] [address] Duong Alcaraz Bilirubin [Mass/Vol] 0.6 mg/dL Normal 0.2-1.0 [facility] Comment on above: Performed By: #### B SCABBLER, TSH, LIPID, CMP, T7 #### [facility] [address] [place] [address] Dr. Duong Alcaraz Calcium [Mass/Vol] 8.5 mg/dL Normal 8.5-10.1 [facility] Comment on above: Performed By: #### B SCABBLER, TSH, LIPID, CMP, T7 #### [facility] [address] [place] [address] Dr. Duong Alcaraz Chloride [Moles/Vol] 101 mmol/L Normal 98-107 [facility] Comment on above: Performed By: #### B SCABBLER, TSH, LIPID, CMP, T7 #### [facility] [address] [place] [address] Dr. Duong Alcaraz CO2 [Moles/Vol] 25.3 mmol/L Normal 21.0-32.0 [facility] Comment on above: Performed By: #### B SCABBLER, TSH, LIPID, CMP, T7 #### [facility] [address] [place] [address] Dr. Duong Alcaraz Creatinine [Mass/Vol] 0.64 mg/dL Normal 0.55-1.02 [facility] Comment on above: Performed By: #### B SCABBLER, TSH, LIPID, CMP, T7 #### [facility] [address] [place] [address] Dr. Duong Alcaraz EGFR-AF ARMENIAN >60 Normal >=60 [facility] Comment on above: Performed By: #### B SCABBLER, TSH, LIPID, CMP, T7 #### [facility] [address] [place] [address] Dr. Duong Alcaarz EGFR-NON AF ARMENIAN >60 Normal >=60 [facility] Comment on above: Performed By: #### B SCABBLER, TSH, LIPID, CMP, T7 #### [facility] [address] [place] [address] Dr. Duong Alcaraz Globulin (S) [Mass/Vol] 3.4 g/dL Normal [facility] Comment on above: Performed By: #### B SCABBLER, TSH, LIPID, CMP, T7 #### [facility] [address] [place] [address] [address] Duong Alcaraz Glucose [Mass/Vol] 91 mg/dL Normal 74-106 [facility] Comment on above: Performed By: #### B SCABBLER, TSH, LIPID, CMP, T7 #### [facility] [address] [place] [address] Dr. Duong Alcaraz Potassium [Moles/Vol] 4.6 mmol/L Normal 3.5-5.1 [facility] Comment on above: Performed By: #### B SCABBLER, TSH, LIPID, CMP, T7 #### [facility] [address] [place] [address] Dr. Duong Alcaraz Protein [Mass/Vol] 6.9 g/dL Normal 6.4-8.2 [facility] Comment on above: Performed By: #### B SCABBLER, TSH, LIPID, CMP, T7 #### [facility] [address] [place] [address] Dr. Duong Alcaraz Sodium [Moles/Vol] 134 mmol/L Critically low 136-[address] [facility] Comment on above: Performed By: #### B SCABBLER, TSH, LIPID, CMP, T7 #### [facility] [address] [place] [address] Dr. Duong Alcaraz Urea nitrogen [Mass/Vol] 11.0 mg/dL Normal 7.0-18.0 [facility] Comment on above: Performed By: #### B SCABBLER, TSH, LIPID, CMP, T7 #### [facility] [address] [place] [address] Dr. Duong Alcaraz Urea nitrogen/Creatinine [Mass ratio] 17.2 mg/mg Normal [facility] Comment on above: Performed By: #### B SCABBLER, TSH, LIPID, CMP, T7 #### [facility] [address] [place], [place] [address] Dr. Duong Alcaraz TSHon 10-04-2021 TSH 1.568 uIU/mL Normal 0.358-3.740 [facility] Comment on above: Performed By: #### B SCABBLER, TSH, LIPID, CMP, T7 ####[facility] [address] [place], [place] [address]GnDr. Duong Alcaraz TSH RANGE SEE BELOW Normal [facility] Comment on above: Result Comment: <0.3 4 UIU/ml HYPERTHYROID 0.34-5.60 UIU/ml EUTHYROID >5.60 UIU/ml HYPOTHYROID Performed By: #### B SCABBLER, TSH, LIPID, CMP, T7 ####[facility] [address] [place], [place] [address]RkDr. Duong Alcaraz MG MAMM SCREEN 3D ALONSO CADon 09-15-2021 MG MAMM SCREEN 3D ALONSO CAD Patient: GLENIS PEREZ Exam Date: 09/15/2021 : 1950 Gender:F Ordering : DR ANDIE FORDE . Admission #: [id number] Family : Order #: [id number] CLICK HERE TO VIEW EXAM RADIOLOGY REPORT [...] Treatments None Family Cancers None LOCATION: [facility] BREAST COMPOSITION: Heterogeneously dense,which may obscure [...] Ortega M.D. on 09/15/2021 at 15:08 Normal [facility] XR DEXA BONE DENSITYon 09-15 [...] by: GRANT ORTEGA Date: 2021-09-15 08:58 Normal [facility] Cardiovascular Lab Reporton 11-12-2020 Cardiovascular Lab Report [facility] Patient Name: [facility] MR #: [id number] Physician: Doe Velez Department of M.D. Medicine Service Date: 11/11/2020 Division of Birthdate: 1950 Cardiology Room #: [facility] Cardiovascular Services [place] [address] Cardiovascular Laboratory Report CLINICAL PRESENTATION: The patient [...] left radial artery. Using ultrasound guidance, a 6-Paraguayan Terumo Glidesheath slender was placed in the left radial artery. The radial anti-vasospasm cocktail of nitroglycerin 200 mcg and verapamil 2.5 mg was administered through the sheath. All catheter exchanges were made over the Magic Torque guidewire. A 5-Paraguayan JR4 used to engage the right coronary artery. A 5-Paraguayan JL4 used to engage the left main [...] Velez M.D. Date Trans: 11/12/2020 05:34 A/viri [id number] cc: Siddharth Nolasco MD Dept Of Cardiology [address] [facility] [address] Andie Forde M.D. [address] [facility] [address] Parul Fitzpatrick, RAW MATERIAL HANDLER [address] [facility] [address] [facility] [address] Normal [facility] Formson 08-26-2020 Forms [id number] .[id number]:127 Normal [facility] Physician Referralon 021 Physician Referral [id number] .[id number]:127 Normal [facility] Ambulatory Clinical Summaryo n 08-25-2020 Ambulatory Clinical Summary {[id number]}CD:[id number] Gaviota Griffin [facility] Patient Educationon 08-26-19 Patient Education Urinary [...] Document Reviewed: 05/18/2012 ExitCare? Patient Information ?2013 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 Requested stent placement to aid in dissection [...] Urnls Dip Stick Auto w/o Microscopy POC 03158 Urology Procedure Order 2. UTI (urinary tract infection) (N39.0: Urinary tract infection, site not specified) UA today appears to be infected with positive nitrate. Will start pt. on Cipro 500mg bid, #6. Script sent to [facility] in [place]. Ordered: Urology Procedure Order 3. Microscopic hematuria (R31.29: Other microscopic hematuria) UA today - trace intact. Ordered: Urology Procedure Order Orders: ciprofloxacin, 500 mg = 1 tab(s), Oral, q12hr, X 3 day(s), # 6 tab(s), Refills(s) 0, Pharmacy: [facility] 1155, 160, cm, 08/25/20 11:31:00 EDT, Height/Length Dosing, 75.6, kg, 08/25/20 11:31:00 EDT, Weight Dosing I have reviewed the previous health record information and history for this pt. from Dr. Gonzalez. Follow-up With When Contact Information Carlos Alvarado MD, Dallin Malik, URO [address] [id number]- Additional Instructions: Patient Education Urinary Tract Infection I, Negra Richmond (more content not included)... Normal [facility] Comment on above: Result Comment: Elec tronically Signed By: Dallin Gonzalez Jr., MD\.br\Date and Time Signed: 08/25/20 13:08 EDT\.br\Electronically Co-Signed By: Negra Mccullough MA\.br\Date and Time Co-Signed: 08/25/20 11:50 EDT Vital Signs Date Time Vital Sign Value Performing Clinician Facility 03-20-2024 11:16-0500 Body height 160 cm Ernie Miller DO Work Phone: [facility] 03-20-2024 11:16-0500 Body mass index (BMI) [Ratio] 29.23 kg/m2 Ernie Miller DO Work Phone: [facility] 03-20-2024 11:16-0500 Body weight 74.84 kg Ernie Andrzej DO Work Phone: [facility] 03-20-2024 11:16-0500 Diastolic blood pressure 74 mm[Hg] Ernie Andrzej DO Work Phone: [facility] 03-20-2024 11:16-0500 Heart rate 102 /min Ernie Andrzej DO Work Phone: [facility] 03-20-2024 11:16-0500 SaO2% (BldA) [Mass fraction] 98 % Ernie Andrzej DO Work Phone: [facility] 03-20-2024 11:16-0500 Systolic blood pressure 110 mm[Hg] Ernie Andrzej DO Work Phone: [facility] 02-27-2023 10:15-0500 Body height 161.29 cm Tomás Globili Other [facility] Other 11-28-2022 11:00-0400 Body height 161.29 cm Tomás Elma Other [facility] Other 11-28-2022 11:00-0400 Body mass index (BMI) [Ratio] 27.55 kg/m2 Tomás Elma Other [facility] Other 11-28-2022 11:00-0400 Body weight 71.67 kg Tomás Elma Other [facility] Other 09-28-2022 13:15-0400 Body height 161.29 cm Tomás Elma Other [facility] Other 09-28-2022 13:15-0400 Body mass index (BMI) [Ratio] 27.9 kg/m2 Tomás Elma Other [facility] Other 09-28-2022 13:15-0400 Body weight 72.58 kg Tomás Wills Other [facility] Other 04-22-2022 16:30-0500 Body height 161.29 cm Linda Hall Other [facility] Other 04-22-2022 16:30-0500 Body mass index (BMI) [Ratio] 27.02 kg/m2 Linda Hall Other [facility] Other 04-22-2022 16:30-0500 Body temperature 96.4 [degF] Linda Hall Other [facility] Other 04-22-2022 16:30-0500 Body weight 70.31 kg Linda Hall Other [facility] Other 04-22-2022 16:30-0500 Respiratory rate 18 /min Linda Hall Other [facility] Other 04-22-2022 16:30-0500 SaO2% (BldA) [Mass fraction] 98 % Linda Hall Other [facility] Other Encounters Encounter Date Encounter Type Care Provider Facility Start: 03-20-2024 End: 03-20-2024 Bamboo flowsheet Ernie Andrzej DO Work Phone: [facility] [address] [facility] Start: 03-20-2024 End: 03-20-2024 Bamboo flowsheet Ernie Andrzej DO Work Phone: [employer] [facility] [address] Start: 03-20-2024 End: 03-20-2024 Office outpatient visit 25 minutes Ernie Miller DO Work Phone: [facility] Comment on above: RICK (obstructive sle ep apnea) (Primary Dx); Hypersomnia; Snoring Start: 03-20-2024 End: 03-20-2024 ambulatory ERNIE MILLER Not Available Start: 01-08-2024 End: 01-08-2024 ambulatory TATIANNA SUMIT [facility] Start: 11-22-2023 End: 11-22-2023 ambulatory FRANK E RINKES Not Available Start: 07-13-2023 End: 07-13-2023 ambulatory FRANK E RINKES Not Available Start: 04-04-2023 End: 04-04-2023 ambulatory FRANK E RINKES Not Available Start: 02-27-2023 Office outpatient vi sit 15 minutes Tomás Wills [facility] Start: 02-27-2023 End: 02-27-2023 ambulatory Tomás Wills [employer] Other Start: 01-18-2023 End: 01-18-2023 ambulatory Tomás Wills Other [facility] Other Start: 01-18-2023 Telephone encounter Tomás Wills [facility] Start: 12-28-2022 End: 12-28-2022 ambulatory Tomás Wills Other [facility] Other Start: 12-28-2022 Telephone encounter Tomás Wills [facility] Start: 11-28-2022 End: 11-28-2022 ambulatory Tomás Wills Other [facility] Other Start: 11-28-2022 Postop follow up vis it related to original px Tomás Wills [facility] Start: 09-28-2022 End: 09-28-2022 ambulatory Tomás Wills Other [facility] Other Start: 09-28-2022 Postop follow up vis it related to original px Tomás Wills [facility] Start: 09-23-2022 End: 09-23-2022 ambulatory Tomás Wills Other [facility] Other Start: 09-23-2022 Telephone encounter Tomás CHRISTENSEN [facility] Start: 09-13-2022 End: 09-13-2022 ambulatory Andie Forde Facility:[facility] Start: 08-24-2022 End: 08-24-2022 ambulatory Tomás iWlls Facility:[facility] Start: 08-19-2022 End: 08-20-[address] ANDIE FORDE . Facility:[facility] Start: 08-12-2022 End: 08-12-2022 ambulatory Tomás Wills Facility:[facility] Start: 07-04-2022 End: 07-05-[address] ANDIE FORDE . Facility:[facility] Start: 06-22-2022 End: 06-23-[address] ANDIE FORDE . Facility:[facility] Start: 04-22-2022 End: 04-22-2022 ambulatory Linda Hall Other [facility] Other Start: 04-22-2022 Office outpatient ne w [...] 11-11-2020 End: 11-12-2020 ambulatory DOE VELEZ Facility:[facility] Plan of Treatment Date Care Activity Detail Author Start: 03-20-2024 End: 03-20-2024 Patient encounter procedure 03/20/2024 11:15 AM EST Office Visit [facility] [address] [place] [id number] Ernie Miller DO [address] [place], [place] [id number] [facility] Comment on above: Arrived Start: [...] unspecified formulation Ernie Miller DO Work Phone: [facility] Healthcare Payers Date Payer Category Payer Self-pay 2022 Other GENERIC OTHER [place] [id number] 2013 Medicare MEDICARE [id number] 1959 Medicare [id number] 1959 Unknown [id number] 1950 Unknown [id number] 2.16.840.1.973334.3.579.2.647 1950 Unknown [id number] 2.16.840.1.351602.3.579.2.593 1950 Unknown [id number] 2.16.840.1.376400.3.579.2.593 1948 Unknown [id number] 2.16.840.1.753411.3.579.2.593 1948 Unknown [id number] 2.16.840.1.092191.3.579.2.593 1948 Unknown [id number] 2.16.840.1.517599.3.579.2.593 1948 Unknown [id number] 2.16.840.1.446594.3.579.2.593 1948 Unknown [id number] 2.16.840.1.933916.3.579.2.593 1948 Unknown [id number] 2.16.840.1.951336.3.579.2.593 1948 Unknown [id number] 2.16.840.1.675253.3.579.2.593 1948 Unknown [id number] 2.16.840.1.376347.3.579.2.593 1948 Unknown [id number] 2.16.840.1.009428.3.579.2.593 1948 Unknown [id number] 2.16.840.1.474264.3.579.2.593 1948 Unknown [id number] 2.16.840.1.448200.3.579.2.1259 1948 Unknown [id number] 2.16.840.1.526794.3.579.2.1259 1948 Unknown [id number] 2.16.840.1.738934.3.579.2.1259 1948 Unknown [id number] 2.16.840.1.068394.3.579.2.1259 Unknown [id number] 2.16.840.1.667030.19 Unknown [id number] 2.16.840.1.727135.3.579.2.531 Unknown [id number] 2.16.840.1.013057.3.579.2.531 Unknown [id number] 2.16.840.1.890560.3.579.2.531 Unknown [id number] 2.16.840.1.192892.3.579.2.531 Social History Date Type Detail Facility Start: 04-04-2023 End: 03-20-2024 Sex Assigned At [facility] [employer] Other Start: 11-30-2022 End: 03-20-2024 Tobacco smoking status NHIS Never smoked tobacco [facility] Start: 04-04-2023 End: 03-20-2024 History of Social function [facility] Start: 1950 Sex assigned at Not on file N [facility] Start: 03-20-2024 Tobacco use and exposure Smokeless tobacco non-user [facility] Clinical Notes 04-22-2022 to [...] minutes and residual AHI of 3.9. Her [place] Sleepiness scale is a 11. Well and she needs a order for new supplies sent over. Plan: Compliance was reviewed and she was compliant. Her epworth's sleepines scale and an 11 The patient was counseled on proper sleep hygiene and adequate hours of sleep. The patient was counseled on the risks of stroke, VT, and sudden with RICK, along with the [...] clinic: 3 mon documented in this encounter [facility] 01-08-2024 Note Continue carvedilol currently remains stable. [facility] 01-08-2024 Note Currently no concern ing symptoms and patient denies any palpitations. Continue carvedilol 12.5 mg twice daily. [facility] 01-08-2024 Note Hypertension is well -controlled currently. Continue carvedilol and hydrochlorothiazide Renal function and electrolytes are normal She does admit to occasional lightheadedness with low blood pressure denies any syncope or near syncope. Admits that typical days she does not hydrate well enough and likes to drink ice tea therefore we discussed adequate hydration. [facility] 01-08-2024 Note UTP CARDIOLOGY PROGR ESS NOTE HPI: Glenis Preez is a 73 y.o. female here for [...] and likes t (more content not included)... [facility] 01-08-2024 Note Pt here for a [...] All other systems reviewed and are negative. [facility] 02-27-2023 Evaluation note Encounter Date Diagnosis [...] from surgery. 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 Activity as tolerated. Call with questions/anuradha rns. Provided AAOS hand out on hip conditioning and IT band exercises. [facility] Other 09-06-2023 Evaluation note* Encounter Date Diagnosis Assessment Notes Treatment Notes Treatment Clinical Notes Dec, History of total left knee replacement (ICD-10 - Z96.652) [facility] Other 08-07-2023 Evaluation note* Encounter Date Diagnosis [...] total left knee replacement (ICD-10 - Z96.652) [facility] Other 06-07-2023 Evaluation note* Encounter Date Diagnosis [...] meniscus of left knee (ICD-10 - M23.307) [facility] Other 06-02-2023 Evaluation note* Encounter Date Diagnosis Assessment Notes Treatment Notes Treatment Clinical Notes Sep, Primary osteoarthritis of left knee (ICD-10 - M17.12) [facility] Other 03-01-2023 NotePROCEDURE: XR KNEE LT 4V or > COMPARISON: 04/09/2021 HISTORY: Pain of left knee joint FINDINGS: BONES:No acute fracture or dislocation. 7 mm osteochondral injury medial femoral condyle. Tricompartmental osteoarthropathy most significant in the medial compartment SOFT TISSUES:Negative. No visible soft tissue swelling. EFFUSION:None visible. OTHER: Negative. IMPRESSION: Osteochondral injury medial femoral condyle Electronically authenticated by: LISET MEZA Date: 2022-06-22 17:46[facility]12-30-2022 Evaluation note* Encounter Date Diagnosis Assessment [...] treatment plan Mar, Headache (ICD-10 - R51.9) [facility] Other Evaluation noteNo InformationNort [employer] Other Evaluation note* Diagnosis RICK (obstructive sleep apnea)- Primary Obstructive sleep apnea (adult) (pediatric) Hypersomnia Hypersomnia, unspecified Snoring Other dyspnea and respiratory abnormality documented in this encounter [facility] N[facility] - Reported* Type Description Date Medical History hx of hypertension Surgical History tubiligation Surgical History [place] To[facility] Hospitalization History vaginal child x 3 [facility] Other History general Narrative - Reported* Type Description Date Medical History hx of hypertension Medical History PVC Medical History osteoarthritis of the left knee Surgical History tubiligation Surgical History [place] Tooth Extraction Hospitalization History vaginal child x 3 [facility] Other History general Narrative - Reported* Type Description Date Medical History hx of hypertension Medical History PVC Medical History osteoarthritis of the left knee Surgical History tubiligation Surgical History [place] Tooth Extraction Surgical History left total knee arthroplasty Hospitalization History vaginal child x 3 [facility] Other Summary Purpose Family History No Family [...] and content) DATE CREATED AUTHOR 09/24/2020 [facility] DATE CREATED AUTHOR AUTHOR'S ORGANIZ ATION 11/18/2020 [facility] DATE CREATED AUTHOR AUTHOR'S ORGANIZ ATION 08/26/2022 [facility] DATE CREATED AUTHOR AUTHOR'S ORGANIZ ATION 05/13/2023 [facility] DATE CREATED AUTHOR AUTHOR'S ORGANIZ ATION 01/09/2024 [facility] DATE CREATED AUTHOR AUTHOR'S ORGANIZ ATION 03/23/2024 [facility] EPIC REASON FOR VISIT (unrecogniz ed section and content) Reason Comments Sleep Apnea Care Teams (unrecognized sec tion and content) Loading And Unloading Supervisor Relationship Specialty Start Date End Date Andie Forde MD [address] [place] [address] PCP - General Family Medicine 11/30/22 Loading And Unloading Supervisor Relationship Specialty Start Date End Date Andie Forde MD [address] [place] [address] PCP - General Family Medicine 11/30/22 FOR [...] BE BASED ON THE PRIMARY CLINICAL RECORDS. [facility] [employer] [facility]. provides no warranty or guarantee of the accuracy or completeness of information in this document.
[2024-05-06 09:54] LABS: Basophils Absolute Auto 0.1 10^3/uL (0.0-0.1); Basophils Percent Auto 1.6 % (0.2-2.0); Eosinophils Absolute Auto 0.2 10^3/uL (0.0-0.7); Eosinophils Percent Auto 4.2 % (0.9-7.0); Hematocrit 36.5 % (36.0-48.0); Hemoglobin 12.7 g/dL (12.0-16.0); Immature Granulocytes Abs Auto 0.02 10^3/uL (0.00-0.03); Immature Granulocytes Pct Auto 0.5 % (0.0-0.5); Lymphocytes Absolute Auto 0.9 10^3/uL (1.2-3.8); Lymphocytes Percent Auto 23.4 % (20.5-60.0); Mean Corpuscular HGB Conc 34.8 g/dL (29.9-35.2); Mean Corpuscular Hemoglobin 31.6 pg (26.7-34.0); Mean Corpuscular Volume 90.8 fL (81.0-99.0); Monocytes Absolute Auto 0.5 10^3/uL (0.3-0.8); Monocytes Percent Auto 12.5 % (1.7-12.0); Neutrophils Absolute Auto 2.2 10^3/uL (1.4-6.5); Neutrophils Percent Auto 57.8 % (43.0-75.0); Platelet Count 197 10^3/uL (150-450); Red Blood Count 4.02 10^6/uL (4.20-5.40); Red Cell Distribution Width 12.6 % (11.0-15.0); White Blood Count 3.9 10^3/uL (4.0-11.0)
[2024-05-06 10:13] LABS: Anion Gap 11.9; BUN Creatinine Ratio 19.2; Carbon Dioxide 30.2 mmol/L (21.0-32.0); Chloride 99 mmol/L (98-107); Estimated GFR (African America >60 (>=60 mL/min/1.73m^2); Estimated GFR (Non-African Ame >60 (>=60 mL/min/1.73m^2); Glucose 98 mg/dL (74-106); Potassium 4.1 mmol/L (3.5-5.1); Sodium 137 mmol/L (136-145)
== END 2024-05-06 09:16 | disposition home or self-care (01) ==
LOC: CARD 09:18
PROVIDERS: PCP Family Medicine; Visit Provider Family Medicine
DX: N39.0 Urinary tract infection, site not specified (principal); Z01.810 Encounter for preprocedural cardiovascular examination; Z01.818 Encounter for other preprocedural examination
CPT/HCPCS: 36415; 80048; 85025; 93005

== ENCOUNTER 2024-05-17 12:36 | Outpatient (OUT) | payer MEDICARE, OTHER, SELFPAY ==
--- OUTSIDE RECORDS SUMMARY | 2024-05-17 12:54 | XMS_ITS | CCD ---
Author Organization [facility] Care Team Providers Care Supervisor [employer] Name Role Phone DOE VELEZ Attending Unavailable [...] Unavailable Andie Forde MD Primary Care Provider [phone] FRANK VILLARREAL E Attending Unavailable RINJULIAN FRANK E Attending Unavailable RINJULIAN FRANK E Attending Unavailable ERNIE MILLER Attending Unavailable Allergies Allergy Classification Reported Allergen(s) Allergy Type Date of Onset Reaction(s) Facility Penicillins (antibiotic) (1 source) Penicillin Drug Allergy 1 [facility] Repository Tetracyclines (antibiotic) (1 source) Tetracyclines Drug Allergy 1 [facility] Repository (7 sources) Penicillin Drug Allergy Unknown [facility] Other (11 sources) Tetracycline; Translations: [TETRACYCLINE] Drug Allergy 2 Carlee celis [facility] Repository (2 sources) Penicillins; Translations: [PENICILLINS] Drug allergy (disorder) 4 [facility] Repository (1 source) Tetracycline Drug Allergy 4 [facility] Repository (1 source) Penicillins Drug allergy (disorder) 3 [facility] Repository (1 source) Tetracycline Drug Allergy 3 [facility] Repository (3 sources) Penicillins Drug Allergy 2 [facility] Healthcare (2 sources) levoFLOXacin Drug Allergy 4 [facility] Healthcare Medications Current Medications Medication [...] UNIT (7 sources) [facility] Vitamin D 1000 UNIT [...] Start: 09-09-2022 take 1 capsule by mo [facility] every twelve hours Clindamycin HCl 300 MG [...] Range Facility Office Visiton 01-08-2024 Follow-up visit [id number] Glenis Perez 1950 F Date Provider Department Center 01/08/2024 [facility]irt-TATIANNA ARANA Family History Problem Relation Age of Onset Heart attack Mother Coronary artery disease Mother Other Brother Family Status - Relation Status Age at Mother Brother Level of Service:54865 [place] OFFICE/OUTPATIENT ESTABLISHED SF MDM 10 MIN Normal [facility] XR knee LT 2Von 02-27-2023 XR knee LT 2V [facility] [address] [place] [address] XRay Report Signed Patient: Glenis Perez MR#: [id number] 42 : 1950 Acct:[id number] Age/Sex: 72 / F ADM Date: 02/27/23 Loc: [facility] Room: Type: [facility] Attending Dr: Tomás Wills DO Copies to: [...] Raúl Woo M.D.02/27/2023 3:08 PM Dictation Location: [place] [address] Transcribed By: [facility] 02/27/23 1508 Dictated By: Raúl Woo DO 02/27/23 1508 Signed By: 02/27/23 1508 Normal [facility] XR knee LT [facility]V [facility] [employer] Other XR knee LT 2V [facility] [employer] Other XR knee LT 2V [address] [place] [address] [employer] Other XR knee LT 2[place] [address] [facility] [employer] Other XR knee LT 2V XRay Report [place] [employer] Other XR knee LT 2V Signed [place] [employer] Other XR knee LT 2V Patient: Glenis Perez MR#: [id number] [facility] [employer] Other XR knee LT 2V [address] [facility] [employer] Other XR knee LT 2V : 1950 Acct:[id number] [facility] Other XR knee LT 2V Age/Sex: 72 / F ADM Date: 02/27/23 [facility] Other XR knee LT 2V [facility]: [facility] Other XR knee LT 2V Attending Dr: Tomás Wills DO [facility] Other XR knee LT 2V Copies to: Tomás Wills DO [facility] Other XR knee LT 2V Ordering Provider: Tomás Wills DO [facility] Other XR knee LT 2V Date of Service: 02/27/23 [facility] Other XR knee LT 2V XR/XR knee LT 2V: Status post total left knee replacement [facility] Other XR knee LT 2V 2 views LEFT knee plain film [facility] Other XR knee LT 2V COMPARISON: 09/13/22 N [place] Other XR knee LT 2V HISTORY: Status post LEFT total knee arthroplasty [facility] Other XR knee LT 2V ACUTE FINDINGS: None [place] Other XR knee LT 2V DEGENERATIVE CHANGE: Unremarkable [facility] Other XR knee LT 2V SOFT TISSUE FINDINGS : Unremarkable [facility] Other XR knee LT 2V JOINT EFFUSION: None [place] Other XR knee LT 2V POSTOP CHANGES: Stable hardware [facility] Other XR knee LT 2V BONE MINERALIZATION: Adequate [facility] Other XR knee LT 2V XR/XR knee LT 2V [facility] Other XR knee LT 2V IMPRESSION: Uncomplicated LEFT knee arthroplasty [facility] Other XR knee LT 2V Impression dictated by: Raúl Woo M.D.02/27/2023 3:08 PM [facility] Other XR knee LT 2V Dictation Location: [place] [address] [facility] Other XR knee LT 2V Transcribed By: PWS 02/27/23 [facility] Other XR knee LT 2V Dictated By: Raúl Woo DO 02/27/23 [facility] Other XR knee LT 2V Signed By: [facility] Other XR knee LT 2V 02/27/23 0398 [place] Other [place] 09-13-2022 L - -------- Specimen: [id number] Received: 09/13/22 Status: LUZ Lynn Num: [id number] Spec Type: Surgical Subm Dr: Tomás Wills DO Tissues: A Joint/Knee (LT KNEE) Procedures: Gross/Micro L4, Decalcification -------- Age/ Patient Sex Location Account Attending Physician -------- Glenis Perez Ann 71/F CT [id number] Tomás Wills DO -------- SPEC NUM: [id number] RECD: 09/13/22 STATUS: LUZ LYNN NUM: [id number] SETH: 09/13/22- [facility] DR: Tomás Wills DO ENTERED: 09/13/[address] [facility] [address]: ANDREW TYPE: Surgical DEPT: S [...] is taken. Gross examination only. CPT Codes 70200 Gross Photo -------- -------- Specimen: [id number] Received: 09/13/22 Status: LUZ Lynn Num: [id number] Spec Type: Surgical Subm Dr: Tomás Wills DO Tissues: A Joint/Knee (LT KNEE) Procedures: Gross/Micro L4, Decalcification -------- Patient: Glenis Perez [id number] (Continued) -------- Signed (signature on file) Kendra Guzman MD 09/14/22 1033 Normal [facility] XR knee LT 2Von 09-13-2022 XR knee LT 2V [address] [address] XRay Report Signed Patient: Glenis Perez MR#: [id number] 42 : 1950 Acct:[id number] Age/Sex: 71 / F ADM Date: 09/13/22 Loc: CT Room: Type: [facility] Attending Dr: [...] Sameer Guy M.D.09/13/2022 3:01 PM Dictation Location: [place] [address] Transcribed By: [facility] 09/13/22 1501 Dictated By: Sameer Guy II, MD 09/13/22 1500 Signed By: 09/13/22 1501 [facility] PROF CHEM 8 (BAS METB)on Anion gap [Moles/Vol] 10.3 mmol/L Normal [facility] Comment on above: Performed By: #### B MP #### [facility] [address] [place] [address] Dr. Duong Alcaraz Calcium [Mass/Vol] 9.3 mg/dL Normal 8.5-10.1 [facility] Comment on above: Performed By: #### B MP #### [facility] [address] [place] [address] [address] Duong Alcaraz Chloride [Moles/Vol] 95 mmol/L Critically low 98-107 [facility] Comment on above: Performed By: #### B MP #### [facility] [address] [place] [address] [address] Duong Alcaraz CO2 [Moles/Vol] 30.6 mmol/L Normal 21.0-32.0 [facility] Comment on above: Performed By: #### B MP #### [facility] [address] [address] [address] Duong Alcaraz Creatinine [Mass/Vol] 0.69 mg/dL Normal 0.55-1.02 [facility] Comment on above: Performed By: #### B MP #### [facility] [address] [address] [address] Duong Alcaraz EGFR-AF CROATIAN >60 Normal >=60 [facility] Comment on above: Performed By: #### B MP #### [facility] [address] [place] [address] [address] Duong Alcaraz EGFR-NON AF CROATIAN >60 Normal >=60 [facility] Comment on above: Performed By: #### B MP #### [facility] [address] [place] [address] [address] Duong Alcaraz Glucose [Mass/Vol] 83 mg/dL Normal 74-106 [facility] Comment on above: Performed By: #### B MP #### [facility] [address] [address] [address] Duong Alcaraz Potassium [Moles/Vol] 3.9 mmol/L Normal 3.5-5.1 [facility] Comment on above: Performed By: #### B MP #### [facility] [address] [place] [address] [address] Duong Alcaraz Sodium [Moles/Vol] 132 mmol/L Critically low 136-[address] [facility] Comment on above: Performed By: #### B MP #### [facility] [address] [place] [address] [address] Duong Alcaraz Urea nitrogen [Mass/Vol] 12.0 mg/dL Normal 7.0-18.0 [facility] Comment on above: Performed By: #### B MP #### [facility] [address] [place] [address] [address] Duong Alcaraz Urea nitrogen/Creatinine [Mass ratio] 17.4 mg/mg Normal [facility] Comment on above: Performed By: #### B MP #### [facility] [address] [place] [address] [address] Duong Alcaraz CMP with reflex to A1Con 04- 21-2023 Albumin [Mass/Vol] 3.9 g/dL Normal 3.5-5.7 [facility] Comment on above: Performed By: #### C BC, CMP wRFX A1C #### [facility] [address] Albumin/Globulin [Mass ratio] 1.5 {ratio} Normal [facility] Comment on above: Performed By: #### C BC, CMP wRFX A1C #### [facility] [address] ALP [Catalytic activity/Vol] 34 U/L Normal 34-104 [facility] Comment on above: Result Comment: PERF ORMED BY: [place] [address] PATHOLOGIST DISCHARGE COORDINATOR YAMILETH PERRY M.D. Performed By: #### C BC, CMP wRFX A1C #### [address] ALT [Catalytic activity/Vol] 14 U/L Normal 7-52 [facility] Comment on above: Performed By: #### C BC, CMP wRFX A1C #### [facility] [address] [place] [address] Anion gap [Moles/Vol] 11.1 mmol/L Normal 6.0-15.0 [facility] Comment on above: Performed By: #### C BC, CMP wRFX A1C #### [facility] [address] [place] [address] AST [Catalytic activity/Vol] 18 U/L Normal 13-39 [facility] Comment on above: Performed By: #### C BC, CMP wRFX A1C #### [facility] [address] [place] [address] [place] Bilirubin [Mass/Vol] 0.6 mg/dL Normal 0.3-1.0 [facility] Comment on above: Performed By: #### C BC, CMP wRFX A1C #### [facility] [address] Calcium [Mass/Vol] 8.4 mg/dL Low 8.6-10.3 [facility] Comment on above: Performed By: #### C BC, CMP wRFX A1C #### [facility] [address] [place] [address] [place] Chloride [Moles/Vol] 94 mmol/L Low 98-107 [facility] Comment on above: Performed By: #### C BC, CMP wRFX A1C #### [facility] [address] [place] [address] [place] CO2 [Moles/Vol] 28.0 mmol/L Normal 21.0-31.[address] [facility] Comment on above: Performed By: #### C BC, CMP wRFX A1C #### [address] Creatinine [Mass/Vol] 0.68 mg/dL Normal 0.60-1.20 [facility] Comment on above: Performed By: #### C BC, CMP wRFX A1C #### [place] [address] [place] GFR/1.73 sq M.predicted MDRD (S/P/Bld) [Vol rate/Area] mL/min/{1.73_m2} Normal [facility] Comment on above: Performed By: #### C BC, CMP wRFX A1C #### [address] Globulin (S) [Mass/Vol] 2.6 g/dL Normal [facility] Comment on above: Performed By: #### C BC, CMP wRFX A1C #### [place] [address] [place] Glucose [Mass/Vol] 88 mg/dL Normal 70-100 [facility] Comment on above: Performed By: #### C BC, CMP wRFX A1C #### [facility] [address] [place] [address] [place] Potassium [Moles/Vol] 4.1 mmol/L Normal 3.5-5.1 [facility] Comment on above: Performed By: #### C BC, CMP wRFX A1C #### [place] [id number] [place] Protein [Mass/Vol] 6.5 g/dL Normal 6.4-8.9 [facility] Comment on above: Performed By: #### C BC, CMP wRFX A1C #### [facility] [address] Sodium [Moles/Vol] 129 mmol/L Low 136-145 [facility] Comment on above: Performed By: #### C BC, CMP wRFX A1C #### [facility] [address] [place] [address] [place] Urea nitrogen [Mass/Vol] 19 mg/dL Normal 7-25 [facility] Comment on above: Performed By: #### C BC, CMP wRFX A1C #### [facility] [address] Complete Blood Count Auto Di ffon 08-12-2022 Basophils (Bld) [#/Vol] 0.1 10*3/uL Normal 0.0-0.2 [facility] Comment on above: Result Comment: PERF ORMED BY: [place] [address] PATHOLOGIST DISCHARGE COORDINATOR YAMILETH PERRY M.D. Performed By: #### C BC, CMP wRFX A1C #### [place] [address] [place] Basophils/100 WBC (Bld) 1.3 % Normal . [facility] Comment on above: Performed By: #### C BC, CMP wRFX A1C #### [facility] [address] [place] [address] [place] Eosinophils (Bld) [#/Vol] 0.1 10*3/uL Normal 0.0-0.45 [facility] Comment on above: Performed By: #### C BC, CMP wRFX A1C #### [facility] [address] [place] [address] [place] Eosinophils/100 WBC (Bld) 1.6 % Normal . [facility] Comment on above: Performed By: #### C BC, CMP wRFX A1C #### [facility] [address] Erythrocyte distribution width (RBC) [Ratio] 13.6 % Normal 11.9-15.3 [facility] Comment on above: Performed By: #### C BC, CMP wRFX A1C #### [facility] [address] Hematocrit (Bld) [Volume fraction] 35.9 % Normal 34.0-46.4 [facility] Comment on above: Performed By: #### C BC, CMP wRFX A1C #### [address] Hemoglobin (Bld) [Mass/Vol] 12.6 g/dL Normal 11.8-15.4 [facility] Comment on above: Performed By: #### C BC, CMP wRFX A1C #### [address] Lymphocytes (Bld) [#/Vol] 0.7 10*3/uL Low 1.00-4.8 [facility] Comment on above: Performed By: #### C BC, CMP wRFX A1C #### [address] Lymphocytes/100 WBC (Bld) 14.6 % Normal . [facility] Comment on above: Performed By: #### C BC, CMP wRFX A1C #### [address] MCH (RBC) [Entitic mass] 31.8 pg Normal 24.7-34.3 [facility] Comment on above: Performed By: #### C BC, CMP wRFX A1C #### [place] [address] [place] MCV (RBC) [Entitic vol] 90.7 fL Normal 80-100 [facility] Comment on above: Performed By: #### C BC, CMP wRFX A1C #### [address] Mean Corpuscular HGB Conc 35.0 g/dL Normal 32.0-35.0 [facility] Comment on above: Performed By: #### C BC, CMP wRFX A1C #### [facility] [address] [place] [address] [place] Monocytes (Bld) [#/Vol] 0.5 10*3/uL Normal 0.0-0.8 [facility] Comment on above: Performed By: #### C BC, CMP wRFX A1C #### [facility] [address] [place] [address] [place] Monocytes/100 WBC (Bld) 10.4 % Normal . [facility] Comment on above: Performed By: #### C BC, CMP wRFX A1C #### [facility] [address] [place] [address] Neutrophils (Bld) [#/Vol] 3.7 10*3/uL Normal 1.8-7.7 [facility] Comment on above: Performed By: #### C BC, CMP wRFX A1C #### [address] Neutrophils/100 WBC (Bld) 72.1 % Normal . [facility] Comment on above: Performed By: #### C BC, CMP wRFX A1C #### [facility] [address] [place] [address] [place] NRBC% 0.0 /100{WBC} Normal 0-0.5 [facility] Comment on above: Performed By: #### C BC, CMP wRFX A1C #### [facility] [address] [place] [address] [place] Platelet mean volume (Bld) [Entitic vol] 6.2 fL Low 6.3-10.7 [facility] Comment on above: Performed By: #### C BC, CMP wRFX A1C #### [facility] [address] [place] [address] [place] Platelets (Bld) [#/Vol] 241 10*3/uL Normal 150-450 [facility] Comment on above: Performed By: #### C BC, CMP wRFX A1C #### [facility] [address] [place] [address] [place] RBC (Bld) [#/Vol] 3.96 10*6/uL Normal 3.60-5.00 [facility] Comment on above: Performed By: #### C BC, CMP wRFX A1C #### [facility] [address] WBC (Bld) [#/Vol] 5.1 10*3/uL Normal 3.8-11.6 [facility] Comment on above: Performed By: #### C BC, CMP wRFX A1C #### [facility] [address] [place] [address] [place] Dipstick and Microscopicon 0 08-12-2022 Appearance (U) Clear Normal Clear [facility] Comment on above: Order Comment: Name Collection Type:: Clean-Voided Midstream Performed By: #### A DDONUAPLUS #### [address] Bacteria,Urine None Seen Normal None Seen [facility] Comment on above: Order Comment: Name Collection Type:: Clean-Voided Midstream Performed By: #### A DDONUAPLUS #### [place] [address] [place] Bilirubin,Urine Negative Normal Negative [facility] Comment on above: Order Comment: Name Collection Type:: Clean-Voided Midstream Performed By: #### A DDONUAPLUS #### [place] [address] [place] Color (U) Yellow Normal Yellow [facility] Comment on above: Order Comment: Name Collection Type:: Clean-Voided Midstream Performed By: #### A DDONUAPLUS #### [place] [address] [place] Glucose Ql (U) Normal Normal Normal [facility] Comment on above: Order Comment: Name Collection Type:: Clean-Voided Midstream Performed By: #### A DDONUAPLUS #### [place] [address] [place] Hyaline Casts,Urine None Seen Normal 0-8 [facility] Comment on above: Order Comment: Name Collection Type:: Clean-Voided Midstream Result Comment: PERF ORMED BY: [place] [address] PATHOLOGIST DISCHARGE COORDINATOR YAMILETH PERRY M.D. Performed By: #### A DDONUAPLUS #### [place] [address] [place] Ketones Ql (U) Negative Normal Negative [facility] Comment on above: Order Comment: Name Collection Type:: Clean-Voided Midstream Performed By: #### A DDONUAPLUS #### [address] Leukocyte esterase Test strip Ql (U) 3+ High Negative [facility] Comment on above: Order Comment: Name Collection Type:: Clean-Voided Midstream Performed By: #### A DDONUAPLUS #### [place] [address] [place] Nitrite,Urine Negative Normal Negative [facility] Comment on above: Order Comment: Name Collection Type:: Clean-Voided Midstream Performed By: #### A DDONUAPLUS #### [place] [address] [place] Occult Blood,Urine Negative Normal Negative [facility] Comment on above: Order Comment: Name Collection Type:: Clean-Voided Midstream Result Comment: PERF ORMED BY: [place] [address] PATHOLOGIST DISCHARGE COORDINATOR YAMILETH PERRY M.D. Performed By: #### A DDONUAPLUS #### [place] [address] [place] pH (U) 7.0 [pH] Normal 5.0-9.0 [facility] Comment on above: Order Comment: Name Collection Type:: Clean-Voided Midstream Performed By: #### A DDONUAPLUS #### [place] [address] [place] Protein,Urine Negative Normal Negative [facility] Comment on above: Order Comment: Name Collection Type:: Clean-Voided Midstream Performed By: #### A DDONUAPLUS #### [address] RBC LM.HPF (Urine sed) [#/Area] 0 /[HPF] Normal 0-4 [facility] Comment on above: Order Comment: Name Collection Type:: Clean-Voided Midstream Performed By: #### A DDONUAPLUS #### [address] Specificy [place],Urine 1.007 Normal 1.001-1.030 [facility] Comment on above: Order Comment: Name Collection Type:: Clean-Voided Midstream Performed By: #### A DDONUAPLUS #### [address] Squamous Epithelial Cell,Urine None Seen Normal 0-2 [facility] Comment on above: Order Comment: Name Collection Type:: Clean-Voided Midstream Performed By: #### A DDONUAPLUS #### [address] Urobilinogen,Urine Normal Normal Normal [facility] Comment on above: Order Comment: Name Collection Type:: Clean-Voided Midstream Performed By: #### A DDONUAPLUS #### [address] WBC,Urine 3-4 Normal 0-4 [facility] Comment on above: Order Comment: Name Collection Type:: Clean-Voided Midstream Performed By: #### A DDONUAPLUS #### [address] MRI KNEE LT WO CONon 023 [...] ligament. MENISCOFEMORAL: Normal meniscofemoral ligaments. OTHER: Large Ivck's cyst, 8.4 x 3.3 x 2.3 cm. [...] by: GRANT ORTEGA Date: 2022-07-04 12:13 Normal [facility] COVID/FLU/RSV RT-PCRon 04-22 SARS-CoV-2 (COVID-19) RNA CASH+probe Ql (Unsp spec) Negative [facility] Other COVID/FLU/RSV RT-PCR Negative [facility] Other CULTURE URINEon 04-14-2022 CULTURE URINE Isolate [...] Trimethoprim/Sulfamet hoxazole <=20 S F Normal [facility] Comment on above: Performed By: #### U RCX ####[facility] [address] [place] [address]Dr. Duong Alcaraz CALCIUMon 04-01-2022 Calcium [Mass/Vol] 9.4 mg/dL Normal 8.5-10.1 [facility] Comment on above: Performed By: #### C A, CREA ####[facility] [id number] [place] [address]Dr. Duong Alcaraz CREATININEon 04-01-2022 Creatinine [Mass/Vol] 0.73 mg/dL Normal 0.55-1.[address] [facility] Comment on above: Performed By: #### C A, CREA ####[facility] [id number] [place], [place] [address]Dr. Duong Alcaraz EGFR-AF CROATIAN >60 Normal >=60 [facility] Comment on above: Performed By: #### C A, CREA ####[facility] [id number] [place] [address]Dr. Duong Alcaraz EGFR-NON AF CROATIAN >60 Normal >=[address] [facility] Comment on above: Performed By: #### C A, CREA ####[facility] [id number] [place] [address]Dr. Duong Alcaraz PROF CHEM 8 (BAS METB)on Anion gap [Moles/Vol] 12.5 mmol/L Normal [facility] Comment on above: Performed By: #### B MP #### [facility] [address] [place] [address] Dr. Duong Alcaraz Calcium [Mass/Vol] 8.8 mg/dL Normal 8.5-10.1 [facility] Comment on above: Performed By: #### B MP #### [facility] [address] [place] [address] [address] Duong Alcaraz Chloride [Moles/Vol] 95 mmol/L Critically low 98-[address] [facility] Comment on above: Performed By: #### B MP #### [facility] [address] [place] [address] [address] Duong Alcaraz CO2 [Moles/Vol] 27.3 mmol/L Normal 21.0-32.0 [facility] Comment on above: Performed By: #### B MP #### [facility] [address] [place] [address] [address] Duong Alcaraz Creatinine [Mass/Vol] 0.68 mg/dL Normal 0.55-1.02 [facility] Comment on above: Performed By: #### B MP #### [facility] [address] [place] [address] [address] Duong Alcaraz EGFR-AF CROATIAN >60 Normal >=60 [facility] Comment on above: Performed By: #### B MP #### [facility] [address] [place] [address] [address] Duong Alcaraz EGFR-NON AF CROATIAN >60 Normal >=60 [facility] Comment on above: Performed By: #### B MP #### [facility] [address] [place] [address] [address] Duong Alcaraz Glucose [Mass/Vol] 98 mg/dL Normal 74-106 [facility] Comment on above: Performed By: #### B MP #### [facility] [address] [place] [address] [address] Duong Alcaraz Potassium [Moles/Vol] 3.8 mmol/L Normal 3.5-5.1 [facility] Comment on above: Performed By: #### B MP #### [facility] [address] [place] [address] [address] Duong Alcaraz Sodium [Moles/Vol] 131 mmol/L Critically low 136-[address] [facility] Comment on above: Performed By: #### B MP #### [facility] [address] [place] [address] [address] Duong Alcaraz Urea nitrogen [Mass/Vol] 14.0 mg/dL Normal 7.0-18.0 [facility] Comment on above: Performed By: #### B MP #### [facility] [address] [place] [address] Dr. Duong Alcaraz Urea nitrogen/Creatinine [Mass ratio] 20.6 mg/mg Normal [facility] Comment on above: Performed By: #### B MP #### [facility] [address] [place] [address] Dr. Duong Alcaraz BNPon 11-12-2021 Natriuretic peptide B (Bld) [Mass/Vol] 151.0 pg/mL Normal <=900.[address] [facility] Comment on above: Performed By: #### C MP, BNP #### [facility] [address] [place] [address] Dr. Duong Alcaraz CBC AUTO DIFFon 11-12-2021 BASO # 0.1 103/ul Normal 0.0-0.[address] [facility] Comment on above: Performed By: #### C BC ####[facility] [address] [place], [place] [address]DrClovis Alcaraz Basophils/100 WBC (Bld) 1.3 % Normal 0.2-2.[address] [facility] Comment on above: Performed By: #### C BC ####[facility] [address] [place], [place] [address]DrClovis Alcaraz EO # 0.2 103/ul Normal 0.0-0.[address] [facility] Comment on above: Performed By: #### C BC ####[facility] [address] [place], [place] [address]DrClovis Alcaraz Eosinophils/100 WBC (Bld) 4.4 % Normal 0.9-7.[address] [facility] Comment on above: Performed By: #### C BC ####[facility] [address] [place], [place] [address]Dr. Duong Alcaraz Erythrocyte distribution width (RBC) [Ratio] 12.3 % Normal 11.0-15.[address] [facility] Comment on above: Performed By: #### C BC ####[facility] [address] [place], [place] [address]DrClovis Alcaraz Hematocrit (Bld) [Volume fraction] 36.4 % Normal 36.0-48.[address] [facility] Comment on above: Performed By: #### C BC ####[facility] [address] [place] [id number]. Duong Alcaraz Hemoglobin (Bld) [Mass/Vol] 12.8 g/dL Normal 12.0-16.0 [facility] Comment on above: Performed By: #### C BC ####[facility] [address] [place] [id number]. Selenastevo Kieran IG # 0.02 10e3/ul Normal 0.00-0.03 [facility] Comment on above: Performed By: #### C BC ####[facility] [address] [place] [phone]. Duong Alcaraz IG % 0.5 % Normal 0.0-0.5 [facility] Comment on above: Performed By: #### C BC ####[facility] [address] [place] [address]Dr. Duong Alcaraz LYMPH # 0.8 103/ul Critically low 1.2-3.8 [facility] Comment on above: Performed By: #### C BC ####[facility] [address] [place] [phone]. Duong Alcaraz Lymphocytes/100 WBC (Bld) 19.5 % Critically low 20.5-60.0 [facility] Comment on above: Performed By: #### C BC ####[facility] [address] [place] [phone]. Duong Alcaraz MANUAL DIFF REQ NO Normal [facility] Comment on above: Performed By: #### C BC ####[facility] [address] [place] [phone]. Duong Kieran MCH (RBC) [Entitic mass] 31.7 pg Normal 26.7-34.[address] [facility] Comment on above: Performed By: #### C BC ####[facility] [address] [place] [phone]. Selenastevo Alcaraz MCHC (RBC) [Mass/Vol] 35.2 g/dL Normal 29.9-35.2 [facility] Comment on above: Performed By: #### C BC ####[facility] [address] [place] [phone]. Duong Alcaraz MCV (RBC) [Entitic vol] 90.1 fL Normal 81.0-99.[address] [facility] Comment on above: Performed By: #### C BC ####[facility] [address] [place] [phone]. Duong Alcaraz MONO # 0.5 103/ul Normal 0.3-0.[address] [facility] Comment on above: Performed By: #### C BC ####[facility] [address] [place] [phone]. Duong Alcaraz Monocytes/100 WBC (Bld) 12.3 % Critically high 1.7-12.0 [facility] Comment on above: Performed By: #### C BC ####[facility] [address] [place], [place] [address]Dr. Duong Alcaraz NEUT # 2.4 103/ul Normal 1.4-6.[address] [facility] Comment on above: Performed By: #### C BC ####[facility] [address] [place] [phone]. Duong Alcaraz Neutrophils/100 WBC (Bld) 62.0 % Normal 43.0-75.[address] [facility] Comment on above: Performed By: #### C BC ####[facility] [address] [place] [phone]. Duong Alcaraz Platelet mean volume (Bld) [Entitic vol] 7.8 fL Critically low 9.5-13.[address] [facility] Comment on above: Performed By: #### C BC ####[facility] [address] [place] [phone]. Duong Alcaraz PLT 183 103/ul Normal 150-[address] [facility] Comment on above: Performed By: #### C BC ####[facility] [address] [place] [phone]. Duong Kieran RBC 4.04 106/ul Critically low 4.20-5.40 [facility] Comment on above: Performed By: #### C BC ####[facility] [address] [place], [place] [address]XcDr. Duong Alcaraz WBC 3.9 103/ul Critically low 4.0-11.0 [facility] Comment on above: Performed By: #### C BC ####[facility] [address] [place], [place] [address]NgDr. Duong Alcaraz PROF 14(COMP METB)on 022 Albumin [Mass/Vol] 3.4 g/dL Normal 3.4-5.0 [facility] Comment on above: Performed By: #### C MP, BNP #### [facility] [address] [address] [address] Duong Alcaraz Albumin/Globulin [Mass ratio] 0.9 {ratio} Normal [facility] Comment on above: Performed By: #### C MP, BNP #### [facility] [address] [address] [address] Duong Alcaraz ALP [Catalytic activity/Vol] 33 U/L Critically low 46-116 [facility] Comment on above: Performed By: #### C MP, BNP #### [facility] [address] [address] [address] Duong Alcaraz ALT [Catalytic activity/Vol] 21 U/L Normal 14-59 [facility] Comment on above: Performed By: #### C MP, BNP #### [facility] [address] [address] [address] Duong Alcaraz Anion gap [Moles/Vol] 8.0 mmol/L Normal [facility] Comment on above: Performed By: #### C MP, BNP #### [facility] [address] [address] [address] Duong Alcaraz AST [Catalytic activity/Vol] 26 U/L Normal 15-37 [facility] Comment on above: Performed By: #### C MP, BNP #### [facility] [address] [place] [address] [address] Duong Alcaraz Bilirubin [Mass/Vol] 0.6 mg/dL Normal 0.2-1.0 [facility] Comment on above: Performed By: #### C MP, BNP #### [facility] [address] [address] [address] Duong Alcaraz Calcium [Mass/Vol] 8.8 mg/dL Normal 8.5-10.1 [facility] Comment on above: Performed By: #### C MP, BNP #### [facility] [address] [address] [address] Duong Alcaraz Chloride [Moles/Vol] 98 mmol/L Normal 98-107 [facility] Comment on above: Performed By: #### C MP, BNP #### [facility] [address] [address] [address] Duong Alcaraz CO2 [Moles/Vol] 29.7 mmol/L Normal 21.0-32.0 [facility] Comment on above: Performed By: #### C MP, BNP #### [facility] [address] [place] [address] Dr. Duong Alcaraz Creatinine [Mass/Vol] 0.71 mg/dL Normal 0.55-1.02 [facility] Comment on above: Performed By: #### C MP, BNP #### [facility] [address] [place] [address] Dr. Duong Alcaraz EGFR-AF CROATIAN >60 Normal >=60 [facility] Comment on above: Performed By: #### C MP, BNP #### [facility] [address] [address] [address] Duong Alcaraz EGFR-NON AF CROATIAN >60 Normal >=60 [facility] Comment on above: Performed By: #### C MP, BNP #### [facility] [address] [address] [address] Duong Alcaraz Globulin (S) [Mass/Vol] 3.8 g/dL Normal [facility] Comment on above: Performed By: #### C MP, BNP #### [facility] [address] [address] [address] Duong Alcaraz Glucose [Mass/Vol] 94 mg/dL Normal 74-106 [facility] Comment on above: Performed By: #### C MP, BNP #### [facility] [address] [address] [address] Duong Alcaraz Potassium [Moles/Vol] 3.7 mmol/L Normal 3.5-5.1 [facility] Comment on above: Performed By: #### C MP, BNP #### [facility] [address] [address] [address] Duong Alcaraz Protein [Mass/Vol] 7.2 g/dL Normal 6.4-8.2 [facility] Comment on above: Performed By: #### C MP, BNP #### [facility] [address] [address] [address] Duong Alcaraz Sodium [Moles/Vol] 132 mmol/L Critically low 136-[address] [facility] Comment on above: Performed By: #### C MP, BNP #### [facility] [address] [place] [address] Dr. Duong Alcaraz Urea nitrogen [Mass/Vol] 14.0 mg/dL Normal 7.0-18.0 [facility] Comment on above: Performed By: #### C MP, BNP #### [facility] [address] [address] [address] Duong Alcaraz Urea nitrogen/Creatinine [Mass ratio] 19.7 mg/mg Normal [facility] Comment on above: Performed By: #### C MP, BNP #### [facility] [address] [place] [address] Dr. Duong Alcaraz ECHOCARDIO M/2D COMPLETEon 0 11-03-2021 ECHOCARDIO M/2D COMPLETE Patient: GLENIS PEREZ Exam Date: 11/03/2021 : 1950 Gender:F Ordering : PARUL FITZPATRICK Admission #: [id number] Family : DR ANDIE FORDE . Order #: [id number] CLICK HERE TO VIEW EXAM ECHOCARDIOGRAM REPORT [...] M.D. on 11/03/2021 at 21:34 [facility] BNPon 10-04-2021 Natriuretic peptide B (Bld) [Mass/Vol] 200.0 pg/mL Normal <=900.[address] [facility] Comment on above: Performed By: #### B [employer], TSH, LIPID, CMP, T7 ####[facility] [address] [place], [place] [address]EtDr. Duong Alcaraz CBC AUTO DIFFon 10-04-2021 BASO # 0.1 103/ul Normal 0.0-0.[address] [facility] Comment on above: Performed By: #### C BC #### [facility] [address] [address] [address] Duong Alcaraz Basophils/100 WBC (Bld) 1.2 % Normal 0.2-2.[address] [facility] Comment on above: Performed By: #### C BC #### [facility] [address] [place] [address] [address] Duong Alcaraz EO # 0.1 103/ul Normal 0.0-0.[address] [facility] Comment on above: Performed By: #### C BC #### [facility] [address] [address] [address] Duong Alcaraz Eosinophils/100 WBC (Bld) 2.8 % Normal 0.9-7.[address] [facility] Comment on above: Performed By: #### C BC #### [facility] [address] [address] [address] Duong Alcaraz Erythrocyte distribution width (RBC) [Ratio] 12.2 % Normal 11.0-15.[address] [facility] Comment on above: Performed By: #### C BC #### [facility] [address] [address] [address] Duong Alcaraz Hematocrit (Bld) [Volume fraction] 37.0 % Normal 36.0-48.[address] [facility] Comment on above: Performed By: #### C BC #### [facility] [address] [address] [address] Duong Alcaraz Hemoglobin (Bld) [Mass/Vol] 12.6 g/dL Normal 12.0-16.[address] [facility] Comment on above: Performed By: #### C BC #### [facility] [address] [address] [address] Duong Alcaraz IG # 0.03 10e3/ul Normal 0.00-0.03 [facility] Comment on above: Performed By: #### C BC #### [facility] [address] [place] [address] Dr. Duong Alcaraz IG % 0.7 % Critically high 0.0-0.5 [facility] Comment on above: Performed By: #### C BC #### [facility] [address] [place] [address] Dr. Duong Alcaraz LYMPH # 0.7 103/ul Critically low 1.2-3.8 [facility] Comment on above: Performed By: #### C BC #### [facility] [address] [place] [address] Dr. Duong Alcaraz Lymphocytes/100 WBC (Bld) 16.0 % Critically low 20.5-60.0 [facility] Comment on above: Performed By: #### C BC #### [facility] [address] [place] [address] Dr. Duong Alcaraz MANUAL DIFF REQ NO Normal [facility] Comment on above: Performed By: #### C BC #### [facility] [address] [place] [address] Dr. Duong Alcaraz MCH (RBC) [Entitic mass] 31.4 pg Normal 26.7-34.0 [facility] Comment on above: Performed By: #### C BC #### [facility] [address] [place] [address] Dr. Duong Alcaraz MCHC (RBC) [Mass/Vol] 34.1 g/dL Normal 29.9-35.2 [facility] Comment on above: Performed By: #### C BC #### [facility] [address] [place] [address] Dr. Duong Alcaraz MCV (RBC) [Entitic vol] 92.3 fL Normal 81.0-99.0 [facility] Comment on above: Performed By: #### C BC #### [facility] [address] [place] [address] Dr. Duong Alcaraz MONO # 0.5 103/ul Normal 0.3-0.8 [facility] Comment on above: Performed By: #### C BC #### [facility] [address] [address] [address] Duong Alcaraz Monocytes/100 WBC (Bld) 11.5 % Normal 1.7-12.0 [facility] Comment on above: Performed By: #### C BC #### [facility] [address] [address] [address] Duong Alcaraz NEUT # 2.9 103/ul Normal 1.4-6.5 [facility] Comment on above: Performed By: #### C BC #### [facility] [address] [place] [address] Dr. Duong Alcaraz Neutrophils/100 WBC (Bld) 67.8 % Normal 43.0-75.0 [facility] Comment on above: Performed By: #### C BC #### [facility] [address] [place] [address] Dr. Duong Alcaraz Platelet mean volume (Bld) [Entitic vol] 8.2 fL Critically low 9.5-13.5 [facility] Comment on above: Performed By: #### C BC #### [facility] [address] [place] [address] Dr. Duong Alcaraz PLT 191 103/ul Normal 150-[address] [facility] Comment on above: Performed By: #### C BC #### [facility] [address] [address] [address] Duong Alcaraz RBC 4.01 106/ul Critically low 4.20-5.40 [facility] Comment on above: Performed By: #### C BC #### [facility] [address] [place] [address] Dr. Duong Alcaraz WBC 4.3 103/ul Normal 4.0-11.0 [facility] Comment on above: Performed By: #### C BC #### [facility] [address] [place] [address] Dr. Duong Alcaraz FREE THYROXINE INDEX T7on FTI 3.01 Normal 1.30-4.50 [facility] Comment on above: Performed By: #### B [employer], TSH, LIPID, CMP, T7 ####[facility] [address] [place] [id number] Alcaraz T3U 35.0 % Normal 30.0-39.0 [facility] Comment on above: Performed By: #### B [employer], TSH, LIPID, CMP, T7 ####[facility] [address] [place] [phone] Alcaraz T4 [Mass/Vol] 8.60 ug/dL Normal 4.80-13.90 [facility] Comment on above: Performed By: #### B [employer], TSH, LIPID, CMP, T7 ####[facility] [address] [place] [address]DrClovis Alcaraz GLYCOHEMOGLOBIN A1Con 2021 ADA RECOMMENDATION SEE BELOW Normal [facility] Comment on above: Result Comment: ADA RECOMMENDED LIMIT 4.0 - 6.0 ADA THERAPEUTIC TARGET < 7.0 ACTION SUGGESTED > 7.0 Performed By: #### A 1C #### [facility] [address] [address] [address] Duong Alcaraz Glucose [Mass/Vol] 108 mg/dL Normal [facility] Comment on above: Performed By: #### A 1C #### [facility] [address] [address] [address] Duogn Alcaraz HbA1c (Bld) [Mass fraction] 5.4 % Normal 4.5-6.2 [facility] Comment on above: Performed By: #### A 1C #### [facility] [address] [address] [address] Duong Alcaraz IRONon 10-04-2021 Iron [Mass/Vol] 93.0 ug/dL Normal 50.0-170.0 [facility] Comment on above: Performed By: #### I SHARRON ####[facility] [address] [place] [address]Dr. Duong Alcaraz LIPID PROFILEon 10-04-2021 CHOL-HDL RATIO NORM SEE BELOW Normal [facility] Comment on above: Result Comment: 3.3 - 4.4 LOW RISK 4.4 - 7.1 AVERAGE RISK 7.1 - 11.0 MODERATE RISK >11.0 HIGH RISK Performed By: #### B [employer], TSH, LIPID, CMP, T7 ####[facility] [address] [place], [place] [address]Ay. Duong Alcaraz Cholesterol [Mass/Vol] 182 mg/dL Normal <=200 [facility] Comment on above: Performed By: #### B [employer], TSH, LIPID, CMP, T7 ####[facility] [address] [place] [phone]. Duong Alcaraz Cholesterol in HDL [Mass/Vol] 69 mg/dL Critically high 40-60 [facility] Comment on above: Performed By: #### B [employer]ER, TSH, LIPID, CMP, T7 ####[facility] [address] [place] [phone]. Duong Alcaraz Cholesterol in LDL [Mass/Vol] 107.6 mg/dL Normal [facility] Comment on above: Performed By: #### B [employer]ER, TSH, LIPID, CMP, T7 ####[facility] [address] [place] [phone]. Duong Alcaraz Cholesterol.total/C holesterol in HDL [Mass ratio] 2.6 {ratio} Normal [facility] Comment on above: Performed By: #### B [employer], TSH, LIPID, CMP, T7 ####[facility] [address] [place] [phone]. Duong Alcaraz HDL NORMAL > or = 60 mg/dl - LO W CARDIOVASCULAR RISK <40 mg/dl - HIGH CARDIOVASCULAR RISK Normal [facility] Comment on above: Performed By: #### B [employer], TSH, LIPID, CMP, T7 ####[facility] [address] [place] [phone]. Duong Alcaraz LDL CALC NORMAL SEE BELOW Normal [facility] Comment on above: Result Comment: <100 mg/dl OPTIMAL 100 - 129 mg/dl NEAR OR ABOVE OPTIMAL 130 - 159 mg/dl BORDERLINE HIGH 160 - 189 mg/dl HIGH >190 mg/dl VERY HIGH Performed By: #### B [employer], TSH, LIPID, CMP, T7 ####[facility] [address] [place], [place] [address]XfDr. Duong Alcaraz Triglyceride [Mass/Vol] 27 mg/dL Normal <=150 [facility] Comment on above: Performed By: #### B [employer]ER, TSH, LIPID, CMP, T7 ####[facility] [address] [place], [place] [address]FtDr. Duong Alcaraz VLDL CALC 5.4 mg/dL Normal [facility] Comment on above: Performed By: #### B [employer]ER, TSH, LIPID, CMP, T7 ####[facility] [address] [place] [phone]. Duong Alcaraz PROF 14(COMP METB)on 022 Albumin [Mass/Vol] 3.5 g/dL Normal 3.4-5.0 [facility] Comment on above: Performed By: #### B [employer], TSH, LIPID, CMP, T7 #### [facility] [address] [address] [address] Duong Alcaraz Albumin/Globulin [Mass ratio] 1.0 {ratio} Normal [facility] Comment on above: Performed By: #### B [employer]ER, TSH, LIPID, CMP, T7 #### [facility] [address] [place] [address] Dr. Duong Alcaraz ALP [Catalytic activity/Vol] 34 U/L Critically low 46-[address] [facility] Comment on above: Performed By: #### B [employer]ER, TSH, LIPID, CMP, T7 #### [facility] [address] [address] [address] Duong Alcaraz ALT [Catalytic activity/Vol] 22 U/L Normal 14-59 [facility] Comment on above: Performed By: #### B [employer]ER, TSH, LIPID, CMP, T7 #### [facility] [address] [address] [address] Duong Alcaraz Anion gap [Moles/Vol] 12.3 mmol/L Normal [facility] Comment on above: Performed By: #### B [employer]ER, TSH, LIPID, CMP, T7 #### [facility] [address] [place] [address] Dr. Duong Alcaraz AST [Catalytic activity/Vol] 19 U/L Normal 15-[address] [facility] Comment on above: Performed By: #### B [employer]ER, TSH, LIPID, CMP, T7 #### [facility] [address] [address] [address] Duong Alcaraz Bilirubin [Mass/Vol] 0.6 mg/dL Normal 0.2-1.[address] [facility] Comment on above: Performed By: #### B [employer], TSH, LIPID, CMP, T7 #### [facility] [address] [place] [address] Dr. Duong Alcaraz Calcium [Mass/Vol] 8.5 mg/dL Normal 8.5-10.1 [facility] Comment on above: Performed By: #### B [employer]ER, TSH, LIPID, CMP, T7 #### [facility] [address] [place] [address] Dr. Duong Alcaraz Chloride [Moles/Vol] 101 mmol/L Normal 98-[address] [facility] Comment on above: Performed By: #### B [employer]ER, TSH, LIPID, CMP, T7 #### [facility] [address] [place] [address] Dr. Duong Alcaraz CO2 [Moles/Vol] 25.3 mmol/L Normal 21.0-32.0 [facility] Comment on above: Performed By: #### B [employer]ER, TSH, LIPID, CMP, T7 #### [facility] [address] [place] [address] Dr. Duong Alcaraz Creatinine [Mass/Vol] 0.64 mg/dL Normal 0.55-1.02 [facility] Comment on above: Performed By: #### B [employer]ER, TSH, LIPID, CMP, T7 #### [facility] [address] [place] [address] Dr. Duong Alcaraz EGFR-AF CROATIAN >60 Normal >=60 [facility] Comment on above: Performed By: #### B [employer]ER, TSH, LIPID, CMP, T7 #### [facility] [address] [place] [address] Dr. Duong Alcaraz EGFR-NON AF CROATIAN >60 Normal >=60 [facility] Comment on above: Performed By: #### B [employer]ER, TSH, LIPID, CMP, T7 #### [facility] [address] [place] [address] Dr. Duong Alcaraz Globulin (S) [Mass/Vol] 3.4 g/dL Normal [facility] Comment on above: Performed By: #### B [employer]ER, TSH, LIPID, CMP, T7 #### [facility] [address] [address] [address] Duong Alcaraz Glucose [Mass/Vol] 91 mg/dL Normal 74-106 [facility] Comment on above: Performed By: #### B [employer] TE[employer]ER, TSH, LIPID, CMP, T7 #### [facility] [address] [place] [address] Dr. Duong Alcaraz Potassium [Moles/Vol] 4.6 mmol/L Normal 3.5-5.1 [facility] Comment on above: Performed By: #### B [employer]ER, TSH, LIPID, CMP, T7 #### [facility] [address] [place] [address] Dr. Duong Alcaraz Protein [Mass/Vol] 6.9 g/dL Normal 6.4-8.2 [facility] Comment on above: Performed By: #### B [employer]ER, TSH, LIPID, CMP, T7 #### [facility] [address] [place] [address] Dr. Duong Alcaraz Sodium [Moles/Vol] 134 mmol/L Critically low 136-145 [facility] Comment on above: Performed By: #### B [employer]ER, TSH, LIPID, CMP, T7 #### [facility] [address] [place] [address] Dr. Duong Alcaraz Urea nitrogen [Mass/Vol] 11.0 mg/dL Normal 7.0-18.0 [facility] Comment on above: Performed By: #### B [employer]ER, TSH, LIPID, CMP, T7 #### [facility] [address] [place] [address] Dr. Duong Alcaraz Urea nitrogen/Creatinine [Mass ratio] 17.2 mg/mg Normal [facility] Comment on above: Performed By: #### B [employer]ER, TSH, LIPID, CMP, T7 #### [facility] [address] [place], [place] [address] Dr. Duong Alcaraz TSHon 10-04-2021 TSH 1.568 uIU/mL Normal 0.358-3.740 [facility] Comment on above: Performed By: #### B [employer], TSH, LIPID, CMP, T7 ####[facility] [address] [place], [place] [address]HrDr. Duong Alcaraz TSH RANGE SEE BELOW Normal [facility] Comment on above: Result Comment: <0.3 4 UIU/ml HYPERTHYROID 0.34-5.60 UIU/ml EUTHYROID >5.60 UIU/ml HYPOTHYROID Performed By: #### B [employer], TSH, LIPID, CMP, T7 ####[facility] [address] [place], [place] [address]XjDr. Duong Alcaraz MG MAMM SCREEN 3D ALONSO CADon 09-15-2021 MG MAMM SCREEN 3D ALONSO CAD Patient: GLENIS PEREZ Exam Date: 09/15/2021 : 1950 Gender:F Ordering : DR ANDIE FORDE . Admission #: [id number] Family : Order #: [id number] CLICK HERE TO VIEW EXAM RADIOLOGY REPORT [...] Treatments None Family Cancers None LOCATION: [facility] BREAST COMPOSITION: Heterogeneously dense,which may obscure [...] Ortega M.D. on 09/15/2021 at 15:08 Normal [facility] XR DEXA BONE DENSITYon 09-15 [...] by: GRANT ORTEGA Date: 2021-09-15 08:58 Normal [facility] Cardiovascular Lab Reporton 11-12-2020 Cardiovascular Lab Report [facility] Patient Name: [facility] MR #: [id number] Physician: Doe Velez Department of M.D. Medicine Service Date: 11/11/2020 Division of Birthdate: 1950 Cardiology Room #: [facility] [place] [address] Cardiovascular Laboratory Report CLINICAL PRESENTATION: The patient [...] left radial artery. Using ultrasound guidance, a 6-English Terumo Glidesheath slender was placed in the left radial artery. The radial anti-vasospasm cocktail of nitroglycerin 200 mcg and verapamil 2.5 mg was administered through the sheath. All catheter exchanges were made over the Magic Torque guidewire. A 5-English JR4 used to engage the right coronary artery. A 5-English JL4 used to engage the left main [...] Velez M.D. Date Trans: 11/12/2020 05:34 A/viri [id number] cc: Siddharth Nolasco MD Dept Of Cardiology [address] Andie Forde M.D. [address] [facility] [address] Parul Fitzpatrick, AMMONIUM NITRATE NEUTRALIZER [address] [facility] [address] [facility] [address] Normal [facility] Formson 08-26-2020 Forms [id number] .[id number]:127 Normal [facility] Physician Referralon 021 Physician Referral [id number] .[id number]:127 Normal [facility] Ambulatory Clinical Summaryo n 08-25-2020 Ambulatory Clinical Summary {[id number]}CD:[id number] Gaviota Griffin [facility] [...] Document Reviewed: 05/18/2012 ExitCare? Patient Information ?2013 [employer]. 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 Requested stent placement to aid in dissection [...] Urnls Dip Stick Auto w/o Microscopy POC [address]43 Urology Procedure Order 2. UTI (urinary tract infection) (N39.0: Urinary tract infection, site not specified) UA today appears to be infected with positive nitrate. Will start pt. on Cipro 500mg bid, #6. Script sent to [facility] in [place]. Ordered: Urology Procedure Order 3. Microscopic hematuria (R31.29: Other microscopic hematuria) UA today - trace intact. Ordered: Urology Procedure Order Orders: ciprofloxacin, 500 mg = 1 tab(s), Oral, q12hr, X 3 day(s), # 6 tab(s), Refills(s) 0, Pharmacy: [facility] 1155, 160, cm, 08/25/20 11:31:00 EDT, Height/Length Dosing, 75.6, kg, 08/25/20 11:31:00 EDT, Weight Dosing I have reviewed the previous health record information and history for this pt. from Dr. Gonzalez. Follow-up With When Contact Information Carlos Alvarado MD, Dallin Malik, URO [address] [place] [id number]- Additional Instructions: Patient Education Urinary Tract Infection I, Negra Richmond (more content not included)... Normal [facility] Comment on above: Result Comment: Elec tronically Signed By: Dallin Gonzalez Jr., MD\.br\Date and Time Signed: 08/25/20 13:08 EDT\.br\Electronically Co-Signed By: Negra Mccullough MA\.br\Date and Time Co-Signed: 08/25/20 11:50 EDT Vital Signs Date Time Vital Sign Value Performing Clinician Facility 03-20-2024 11:16-0500 Body height 160 cm Ernie Miller DO Work Phone: [facility] 03-20-2024 11:16-0500 Body mass index (BMI) [Ratio] 29.23 kg/m2 Ernie Miller DO Work Phone: [facility] 03-20-2024 11:16-0500 Body weight 74.84 kg Ernie Andrzej DO Work Phone: [facility] 03-20-2024 11:16-0500 Diastolic blood pressure 74 mm[Hg] Ernie Andrzej DO Work Phone: [facility] 03-20-2024 11:16-0500 Heart rate 102 /min Ernie Andrzej DO Work Phone: [facility] 03-20-2024 11:16-0500 SaO2% (BldA) [Mass fraction] 98 % Ernie Andrzej DO Work Phone: [facility] [employer] 03-20-2024 11:16-0500 Systolic blood pressure 110 mm[Hg] Ernie Andrzej DO Work Phone: [facility] 02-27-2023 10:15-0500 Body height 161.29 cm Tomás Armut Other [facility] Other 11-28-2022 11:00-0400 Body height 161.29 cm Tomás Elma Other [facility] Other 11-28-2022 11:00-0400 Body mass index (BMI) [Ratio] 27.55 kg/m2 Tomás Elma Other [facility] Other 11-28-2022 11:00-0400 Body weight 71.67 kg Tomás Elma Other [facility] Other 09-28-2022 13:15-0400 Body height 161.29 cm Tomás Elma Other [facility] Other 09-28-2022 13:15-0400 Body mass index (BMI) [Ratio] 27.9 kg/m2 Tomás Elma Other [facility] Other 09-28-2022 13:15-0400 Body weight 72.58 kg Tomás Wills Other [facility] Other 04-22-2022 16:30-0500 Body height 161.29 cm Linda Hall Other [facility] Other 04-22-2022 16:30-0500 Body mass index (BMI) [Ratio] 27.02 kg/m2 Linda Hall Other [facility] Other 04-22-2022 16:30-0500 Body temperature 96.4 [degF] Linda Hall Other [facility] Other 04-22-2022 16:30-0500 Body weight 70.31 kg Linda Hall Other [facility] Other 04-22-2022 16:30-0500 Respiratory rate 18 /min Lnida Hall Other [facility] Other 04-22-2022 16:30-0500 SaO2% (BldA) [Mass fraction] 98 % Linda Hall Other [facility] Other Encounters Encounter Date Encounter Type Care Provider Facility Start: 03-20-2024 End: 03-20-2024 Bamboo flowsheet Ernie Andrzej DO Work Phone: [facility] Start: 03-20-2024 End: 03-20-2024 Bamboo flowsheet Ernie Andrzej DO Work Phone: [facility] Start: 03-20-2024 End: 03-20-2024 Office outpatient visit 25 minutes Ernie Miller DO Work Phone: [facility] Comment on above: RICK (obstructive sle ep apnea) (Primary Dx); Hypersomnia; Snoring Start: 03-20-2024 End: 03-20-2024 ambulatory ERNIE MILLER Not Available Start: 01-08-2024 End: 01-08-2024 ambulatory TATIANNA SUMIT [facility] Start: 11-22-2023 End: 11-22-2023 ambulatory FRANK E RINKES Not Available Start: 07-13-2023 End: 07-13-2023 ambulatory FRANK E RINKES Not Available Start: 04-04-2023 End: 04-04-2023 ambulatory FRANK E RINKES Not Available Start: 02-27-2023 Office outpatient vi sit 15 minutes Tomás Wills [facility] Start: 02-27-2023 End: 02-27-2023 ambulatory Tomás Wills [facility] Other Start: 01-18-2023 End: 01-18-2023 ambulatory Tomás Wills Other [facility] Other Start: 01-18-2023 Telephone encounter Tomás Wills [facility] Start: 12-28-2022 End: 12-28-2022 ambulatory Tomás Wills Other [facility] Other Start: 12-28-2022 Telephone encounter Tomás Wills [facility] Start: 11-28-2022 End: 11-28-2022 ambulatory Tomás Wills Other [facility] Other Start: 11-28-2022 Postop follow up vis it related to original px Tomás Wills [facility] Start: 09-28-2022 End: 09-28-2022 ambulatory Tomás Wills Other [facility] Other Start: 09-28-2022 Postop follow up vis it related to original px Tomás Wills [facility] Start: 09-23-2022 End: 09-23-2022 ambulatory Tomás Wills Other [facility] Other Start: 09-23-2022 Telephone encounter Tomás CHRISTENSEN [facility] Start: 09-13-2022 End: 09-13-2022 ambulatory Andie Forde Facility:[facility] Start: 08-24-2022 End: 08-24-2022 ambulatory Tomás Wills Facility:[facility] Start: 08-19-2022 End: 08-20-[address] ANDIE FORDE . Facility:[facility] Start: 08-12-2022 End: 08-12-2022 ambulatory Tomás Wills Facility:[facility] Start: 07-04-2022 End: 07-05-[address] ANDIE FORDE . Facility:[facility] Start: 06-22-2022 End: 06-23-[address] ANDIE FORDE . Facility:[facility] Start: 04-22-2022 End: 04-22-2022 ambulatory Linda Hall Other [facility] Other Start: 04-22-2022 Office outpatient ne w [...] Start: 11-11-2020 End: 11-12-2020 ambulatory DOE VELEZ Facility:[facility] Plan of Treatment Date Care Activity Detail Author Start: 03-20-2024 End: 03-20-2024 Patient encounter procedure 03/20/2024 11:15 AM EST Office Visit [facility] [address] [facility] [place] [id number] Ernie Miller DO [address] [place], [place] [id number] [facility] Comment on above: Arrived [...] unspecified formulation Ernie Miller DO Work Phone: [facility] Healthcare Payers Date Payer Category Payer Self-pay 2022 Other GENERIC OTHER [place] mber [id number] 2013 Medicare MEDICARE [id number] 1959 Medicare [id number] 1959 Unknown [id number] 1950 Unknown [id number] 2.16.840.1.698919.3.579.2.647 1950 Unknown [id number] 2.16.840.1.032523.3.579.2.593 1950 Unknown [id number] 2.16.840.1.883014.3.579.2.593 1950 Unknown [id number] 2.16.840.1.707688.3.579.2.593 1950 Unknown [id number] 2.16.840.1.962492.3.579.2.593 1948 Unknown [id number] 2.16.840.1.739745.3.579.2.593 1950 Unknown [id number] 2.16.840.1.790486.3.579.2.593 1948 Unknown [id number] 2.16.840.1.429249.3.579.2.593 1948 Unknown [id number] 2.16.840.1.017755.3.579.2.593 1948 Unknown [id number] 2.16.840.1.077080.3.579.2.593 1948 Unknown [id number] 2.16.840.1.844175.3.579.2.593 1948 Unknown [id number] 2.16.840.1.626022.3.579.2.593 1948 Unknown [id number] 2.16.840.1.382512.3.579.2.593 1948 Unknown [id number] 2.16.840.1.626184.3.579.2.1259 1948 Unknown [id number] 2.16.840.1.806797.3.579.2.1259 1948 Unknown [id number] 2.16.840.1.160856.3.579.2.1259 1948 Unknown [id number] 2.16.840.1.065715.3.579.2.1259 Unknown [id number] 2.16.840.1.619721.19 Unknown [id number] 2.16.840.1.687739.3.579.2.531 Unknown [id number] 2.16.840.1.578974.3.579.2.531 Unknown [id number] 2.16.840.1.227053.3.579.2.531 Unknown [id number] 2.16.840.1.806754.3.579.2.531 Social History Date Type Detail Facility Start: 04-04-2023 End: 03-20-[address] [facility] Other Start: 11-30-2022 End: 03-20-2024 Tobacco smoking status NHIS Never smoked tobacco [facility] Start: 04-04-2023 End: 03-20-2024 History of Social function [facility] Start: 1950 Sex assigned at Not on file N [facility] Start: 03-20-2024 Tobacco use and exposure Smokeless tobacco non-user [facility] Clinical Notes 04-22-2022 to [...] minutes and residual AHI of 3.9. Her [place] Sleepiness scale is a 11. Well and she needs a order for new supplies sent over. Plan: Compliance was reviewed and she was compliant. Her epworth's sleepines scale and an 11 The patient was counseled on proper sleep hygiene and adequate hours of sleep. The patient was counseled on the risks of stroke, MA, and sudden with RICK, along with the [...] clinic: 3 mon documented in this encounter [facility] 01-08-2024 Note Continue carvedilol currently remains stable. [facility] 01-08-2024 Note Currently no concern ing symptoms and patient denies any palpitations. Continue carvedilol 12.5 mg twice daily. [facility] 01-08-2024 Note Hypertension is well -controlled currently. Continue carvedilol and hydrochlorothiazide Renal function and electrolytes are normal She does admit to occasional lightheadedness with low blood pressure denies any syncope or near syncope. Admits that typical days she does not hydrate well enough and likes to drink ice tea therefore we discussed adequate hydration. [facility] 01-08-2024 Note UTP CARDIOLOGY PROGR ESS [...] and likes t (more content not included)... [facility] 01-08-2024 Note Pt here for a [...] All other systems reviewed and are negative. [facility] 02-27-2023 Evaluation note Encounter Date Diagnosis [...] surgery. 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 Call with questions/anuradha rns. Provided AAOS hand out on hip conditioning and IT band exercises. [facility] Other 09-06-2023 Evaluation note* Encounter Date Diagnosis Assessment Notes Treatment Notes Treatment Clinical Notes Dec, History of total left knee replacement (ICD-10 - Z96.652) [facility] Other 08-07-2023 Evaluation note* Encounter Date Diagnosis [...] total left knee replacement (ICD-10 - Z96.652) [facility] Other 06-07-2023 Evaluation note* Encounter Date Diagnosis [...] meniscus of left knee (ICD-10 - M23.307) [facility] Other 06-02-2023 Evaluation note* Encounter Date Diagnosis Assessment Notes Treatment Notes Treatment Clinical Notes Sep, Primary osteoarthritis of left knee (ICD-10 - M17.12) [facility] Other 03-01-2023 NotePROCEDURE: XR KNEE LT 4V or > COMPARISON: 04/09/2021 HISTORY: Pain of left knee joint FINDINGS: BONES:No acute fracture or dislocation. 7 mm osteochondral injury medial femoral condyle. Tricompartmental osteoarthropathy most significant in the medial compartment SOFT TISSUES:Negative. No visible soft tissue swelling. EFFUSION:None visible. OTHER: Negative. IMPRESSION: Osteochondral injury medial femoral condyle Electronically authenticated by: LISET MEZA Date: 2022-06-22 17:46[facility]12-30-2022 Evaluation note* Encounter Date Diagnosis [...] treatment plan Mar, Headache (ICD-10 - R51.9) [facility] Other Evaluation noteNo InformationNort [employer] Other Evaluation note* Diagnosis RICK (obstructive sleep apnea)- Primary Obstructive sleep apnea (adult) (pediatric) Hypersomnia Hypersomnia, unspecified Snoring Other dyspnea and respiratory abnormality documented in this encounter [facility] N[facility]ative - Reported* Type Description Date Medical History hx of hypertension Surgical History tubiligation Surgical History [place] [facility] Hospitalization History vaginal child x 3 [facility] Other History general Narrative - Reported* Type Description Date Medical History hx of hypertension Medical History PVC Medical History osteoarthritis of the left knee Surgical History tubiligation Surgical History [place] [facility] Extraction Hospitalization History vaginal child x 3 [facility] Other History general Narrative - Reported* Type Description Date Medical History hx of hypertension Medical History PVC Medical History osteoarthritis of the left knee Surgical History tubiligation Surgical History [place]oth Extraction Surgical History left total knee arthroplasty Hospitalization History vaginal child x 3 [facility] Other Summary Purpose Family History No Family [...] and content) DATE CREATED AUTHOR 09/24/2020 [facility] [employer] [facility] DATE CREATED AUTHOR AUTHOR'S ORGANIZ ATION 11/18/2020 [facility] DATE CREATED AUTHOR AUTHOR'S ORGANIZ ATION 08/26/2022 [facility] DATE CREATED AUTHOR AUTHOR'S ORGANIZ ATION 05/13/2023 [facility] DATE CREATED AUTHOR AUTHOR'S ORGANIZ ATION 01/09/2024 [facility] DATE CREATED AUTHOR AUTHOR'S ORGANIZ ATION 03/23/2024 [facility] d[facility] Specialists EPIC REASON FOR VISIT (unrecogniz ed section and content) Reason Comments Sleep Apnea Care Teams (unrecognized sec tion and content) 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 [facility]. provides no warranty or guarantee of the accuracy or completeness of information in this document.
[2024-05-17 13:24] LABS: Hemoglobin 12.2 g/dL (12.0-16.0); Mean Corpuscular HGB Conc 33.9 g/dL (29.9-35.2); Mean Corpuscular Volume 91.4 fL (81.0-99.0); Mean Platelet Volume 8.4 fL (9.5-13.5); Platelet Count 268 10^3/uL (150-450); Red Blood Count 3.94 10^6/uL (4.20-5.40); Red Cell Distribution Width 12.4 % (11.0-15.0); White Blood Count 6.9 10^3/uL (4.0-11.0)
[2024-05-17 13:39] LABS: Band Neutrophils Absolute 0.1 10^3/uL (0.0-0.3); Basophils Abs Manual 0.34 10^3/uL (0.00-0.10); Eosinophils Absolute Manual 0.27 10^3/uL (0.00-0.70); Lymphocytes Absolute Manual 0.41 10^3/uL (1.20-3.80); Metamyelocytes Absolute Manual 0.06; Monocytes Absolute Manual 0.48 10^3/uL (0.30-0.80); Segmented Neut Absolute Manual 5.17 10^3/uL (1.4-6.5)
[2024-05-17 13:40] LABS: Anisocytosis 1+; Ovalocytes 1+
== END 2024-05-17 12:37 | disposition home or self-care (01) ==
LOC: LAB 12:36
PROVIDERS: PCP Family Medicine; Visit Provider Family Medicine
DX: R89.9 Unspecified abnormal finding in specimens from other organs, systems and tissues (principal)
CPT/HCPCS: 36415; 85007; 85027

== ENCOUNTER 2024-06-21 07:34 | Outpatient (RCR) | payer MEDICARE, OTHER, SELFPAY ==
[2024-06-15 11:26] VITALS: BP 125/75; PULSE 67; TEMP 36.6; O2SAT 97
[2024-06-15] MEDS: PIPERACILLIN SODIUM/TAZOBACTAM 3.375 GM in 0.9 % SODIUM CHLORIDE 50 ML IV (11:31)
[2024-06-15 12:15] VITALS: BP 117/75; PULSE 65; TEMP 36.6; O2SAT 93
[2024-06-16 11:15] VITALS: BP 132/78; PULSE 66; O2SAT 97
[2024-06-16] MEDS: PIPERACILLIN SODIUM/TAZOBACTAM 3.375 GM in 0.9 % SODIUM CHLORIDE 50 ML IV (11:18)
[2024-06-17] MEDS: PIPERACILLIN SODIUM/TAZOBACTAM 3.375 GM in 0.9 % SODIUM CHLORIDE 50 ML IV (14:42)
[2024-06-17 14:50] VITALS: BP 127/76; PULSE 84; TEMP 36.6; O2SAT 97
--- NOTE | 2024-06-17 15:35 | PC.NURSE ---
1510 IV site left intact, wrapped loosely with coban, patient instructed not to wrap it any tighter, it's only there for protection
[2024-06-18 11:00] VITALS: BP 149/79; PULSE 70; TEMP 36.6; O2SAT 98
[2024-06-18] MEDS: PIPERACILLIN SODIUM/TAZOBACTAM 3.375 GM in 0.9 % SODIUM CHLORIDE 50 ML IV (11:09)
[2024-06-19 11:00] VITALS: BP 140/76; PULSE 59; TEMP 37; O2SAT 97
[2024-06-19] MEDS: PIPERACILLIN SODIUM/TAZOBACTAM 3.375 GM in 0.9 % SODIUM CHLORIDE 50 ML IV (11:18)
[2024-06-20 11:00] VITALS: BP 124/65; PULSE 65; TEMP 36.7; O2SAT 98
[2024-06-20] MEDS: PIPERACILLIN SODIUM/TAZOBACTAM 3.375 GM in 0.9 % SODIUM CHLORIDE 50 ML IV (11:06)
[2024-06-21 11:03] VITALS: BP 136/83; PULSE 68; TEMP 36.1; O2SAT 98
[2024-06-21] MEDS: PIPERACILLIN SODIUM/TAZOBACTAM 3.375 GM in 0.9 % SODIUM CHLORIDE 50 ML IV (11:08)
--- NOTE | 2024-06-21 11:28 | PC.NURSE ---
iv unable to flush, no blood return (rt wrist) dc'd catheter intact. restarted with #24 rt wrist area, patient tolerated well.
--- NOTE | 2024-06-21 12:46 | PC.NURSE ---
1140 IV infused, flushed line with ns. IV dc'd catheter intact. cotton ball and coban applied. tolerated infusion well. released ambulatory
== END 2024-06-21 23:59 | disposition home or self-care (01) ==
LOC: INF 07:34
PROVIDERS: PCP Family Medicine
DX: N39.0 Urinary tract infection, site not specified (principal); A49.8 Other bacterial infections of unspecified site
CPT/HCPCS: 96365; J2543

== ENCOUNTER 2024-08-12 07:34 | Outpatient (RCR) | payer MEDICARE, OTHER, SELFPAY ==
[2024-08-12 10:00] VITALS: BP 160/87; PULSE 88; TEMP 36.6; O2SAT 98
[2024-08-12 10:10] LABS: Calcium 9.1 mg/dL (8.5-10.1); Estimated GFR (African America >60 (>=60 mL/min/1.73m^2); Estimated GFR (Non-African Ame >60 (>=60 mL/min/1.73m^2)
[2024-08-12] MEDS: DENOSUMAB 60 MG/ML SYRINGE SUBQ (10:23)
== END 2024-08-13 08:06 | disposition home or self-care (01) ==
LOC: LAB 07:34
PROVIDERS: PCP Family Medicine; Visit Provider Family Medicine
DX: Z51.81 Encounter for therapeutic drug level monitoring (principal); M81.0 Age-related osteoporosis without current pathological fracture
CPT/HCPCS: 36415; 82310; 82565; 96372; J0897

== ENCOUNTER 2025-03-07 10:04 | Outpatient (RCR) | payer MEDICARE, OTHER, SELFPAY ==
[2025-03-07 10:21] LABS: Calcium 9.2 mg/dL (8.5-10.1); Estimated GFR (African America >60 (>=60 mL/min/1.73m^2); Estimated GFR (Non-African Ame >60 (>=60 mL/min/1.73m^2)
[2025-03-07] MEDS: DENOSUMAB 60 MG/ML SYRINGE SUBQ (10:53)
[2025-03-07 11:36] VITALS: BP 151/85; PULSE 61; TEMP 36.8; O2SAT 95
== END 2025-03-24 08:29 | disposition home or self-care (01) ==
LOC: LAB 10:04
PROVIDERS: PCP Family Medicine; Visit Provider Family Medicine
DX: M81.0 Age-related osteoporosis without current pathological fracture (principal); Z51.81 Encounter for therapeutic drug level monitoring
CPT/HCPCS: 36415; 82310; 82565; 96372; J0897

== ENCOUNTER 2025-03-14 14:41 | Outpatient (OUT) | payer MEDICARE, OTHER, SELFPAY ==
--- OUTSIDE RECORDS SUMMARY | 2025-03-14 14:43 | XMS_ITS | Patient Health Record ---
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 Role Phone Petr Mariano Primary Care Provider Allergies Allergen (clinical drug ingredient) Drug/Non Drug Allergy documented on EMR Reaction Allergy Type Onset Date Status sulfamethoxazole / trimethoprim Bactrim hives Drug Allergy ActivecefdinirCefdinirdiarrheaDrug AllergyActivelevofloxacinlevoFLOXacinbody achesDrug AllergyActivePenicillindoes not recallDrug AllergyActivetetracycline TetracyclinerashDrug AllergyActive Results Component Value Reference Range Notes COVID-19, Flu A+B IH Reviewed date:05/05/2024 10:05:02 AM Interpretation: Performing Lab: Notes/Report: COVID neg FLU AnegFLU BnegControlpresentCBC AUTO DIFF Reviewed date:05/06/2024 01:17:51 PM Interpretation: Performing Lab: Notes/Report: [facility] ,White Blood Count3.94.0-11.0 10 3/uLRed Blood Count4.024.20-5.40 10 6/uL Ruaaawsssy01.712.0-16.0 g/xNRluxmuwasz94.536.0-48.0 %Mean Corpuscular Fptdff52.8 81.0-99.0 fLMean Corpuscular Fpaauvxbeb85.626.7-34.0 pgMean Corpuscular HGB Conc 34.829.9-35.2 g/dLRed Cell Distribution Width12.611.0-15.0 %Platelet Oqaxm989 150-450 10 3/uLMean Platelet Volume8.09.5-13.5 fLNeutrophils Percent Auto57.8 43.0-75.0 %Lymphocytes Percent Auto23.420.5-60.0 %Monocytes Percent Auto12.51.7- 12.0 %Eosinophils Percent Auto4.20.9-7.0 %Basophils Percent Auto1.60.2-2.0 % Immature Granulocytes Pct Auto0.50.0-0.5 %Neutrophils Absolute Auto2.21.4-6.5 10 3/uLLymphocytes Absolute Auto0.91.2-3.8 10 3/uLMonocytes Absolute Auto0.50.3-0.8 10 3/uLEosinophils Absolute Auto0.20.0-0.7 10 3/uLBasophils Absolute Auto0.10.0- 0.1 10 3/uLImmature Granulocytes Abs Auto0.020.00-0.03 10 3/uLPerforming Lab:see noteML - [facility] LBPROF CHEM 8 (BAS METB) Reviewed date:05/06/2024 01:17:51 PM Interpretation: Performing Lab: Notes/Report: [facility] ,Zidnnn288817-919 mmol/LPotassium4.13.5-5.1 mmol/KLffgtijg1130-816 mmol/LCarbon Tumxxct54.221.0-32.0 mmol/LAnion Gap11.2Qbfoscr1134-750 mg/dLBlood Urea Nitrogen 15.07.0-18.0 mg/dLCreatinine0.780.55-1.02 mg/dLEstimated GFR ( Lis>60 >=60 mL/min/1.73m 2Estimated GFR (Non- Kellie>60>=60 mL/min/1.73m 2BUN Creatinine Ratio19.5Syktjsz7.08.5-10.1 mg/dLPerforming Lab:see noteML - [facility] LBECG 12 lead Reviewed date:05/07/2024 06:30:38 AM Interpretation: Performing Lab: Notes/Report: Source Facility: [facility] [place] [address] [place] [address] Electrocardiograph Report Signed Patient: GLENIS PEREZ MR#: [id number] : 1950 Acct:[id number] Age/Sex: 73 / F ADM Date: 05/06/24 Loc: CARD Attending Dr: Andie Mariano M.D. Ordering Physician: Andie Mariano M.D. 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 Signed By: 05/07/24 0553 DD/ 0931 TD/TT: Professor Of Psychology:ANA MARIA CAMARENA W or MICROSCOPIC Reviewed date:05/05/2024 10:05:02 AM Interpretation: Performing Lab: Notes/Report: [facility] ,Color UrineLT. YELLOWYELLOWClarity UrineSL CLOUDYCLEARSpecific [place] Urine 1.0101.005-1.025pH Urine7.05.0-9.0Protein UrineNEGATIVENEG/TRACE mg/dLGlucose Urine UANEGATIVENEGATIVE mg/dLBilirubin UrineNEGATIVENEGATIVEKetones Urine NEGATIVENEGATIVE mg/dLBlood UrineNEGATIVENEGATIVENitrite UrineNEGATIVENEGATIVE Urobilinogen Urine0.20.2-1.0 EU/dLLeukocyte Esterase UrineLARGENEGATIVEWBC Urine 20-50NONE SEEN #/HPFRBC UrineNONE SEEN0-2 #/HPFBacteria UrineLARGENONE SEEN #/HPFMucus UrineSMALLNONE SEENSquamous Epithelial Cell UrineFEWNONE/RARE #/LPF Crystals Seen?None SeenNone Seen #/HPFCast Seen?NONE SEENNONE SEEN #/LPFUrine Culture IndicatedALREADY ORDEREDPerforming Lab:see noteML - [facility] LBUrine Culture, Routine Reviewed date:05/06/2024 08:00:46 PM Interpretation: Performing Lab: Notes/Report: [facility] ,Urine Culture, RoutineSee Below For Report Urine Culture, Routine Organism: Gram negative fide : O:GNR Isolated O:KLEBPN Isolated Organism: 1.2 Antibiotic Interpretation BRONWYN Status Urine Culture, Routine*ABNORMAL* Urine Culture, Routine Organism: Gram negative fide : O:GNR Isolated O:KLEBPN Isolated Organism: 1.2 Antibiotic Interpretation BRONWYN Status Urine Culture, RoutineGreater than 100,000 colony forming units per mL Urine Culture, Routine Organism: Gram negative fide : O:GNR Isolated O:KLEBPN Isolated Organism: 1.2 Antibiotic Interpretation BRONWYN Status Urine Culture, RoutineGram negative fide Urine Culture, Routine Organism: Gram negative fide : O:GNR Isolated O:KLEBPN Isolated Organism: 1.2 Antibiotic Interpretation BRONWYN Status Urine Culture, RoutineOrganism: Klebsiella pneumoniae. : Urine Culture, Routine Organism: Gram negative fide : O:GNR Isolated O:KLEBPN Isolated Organism: 1.2 Antibiotic Interpretation BRONWYN Status Urine Culture, Routine*ABNORMAL* Urine Culture, Routine Organism: Gram negative fide : O:GNR Isolated O:KLEBPN Isolated Organism: 1.2 Antibiotic Interpretation BRONWYN Status Urine Culture, RoutineMulti-Drug Resistant Organism Urine Culture, Routine Organism: Gram negative fide : O:GNR Isolated O:KLEBPN Isolated Organism: 1.2 Antibiotic Interpretation BRONWYN Status Urine Culture, RoutineSusceptibility profile is consistent with a probable Urine Culture, Routine Organism: Gram negative fide : O:GNR Isolated O:KLEBPN Isolated Organism: 1.2 Antibiotic Interpretation BRONWYN Status Urine Culture, RoutineESBL. Urine Culture, Routine Organism: Gram negative fide : O:GNR Isolated O:KLEBPN Isolated Organism: 1.2 Antibiotic Interpretation BRONWYN Status Urine Culture, RoutineGreater than 100,000 colony forming units per mL Urine Culture, Routine Organism: Gram negative fide : O:GNR Isolated O:KLEBPN Isolated Organism: 1.2 Antibiotic Interpretation BRONWYN Status Urine Culture, RoutineKlebsiella pneumoniae. Urine Culture, Routine Organism: Gram negative fide : O:GNR Isolated O:KLEBPN Isolated Organism: 1.2 Antibiotic Interpretation BRONWYN Status Urine Culture, RoutineSee Below For Report Urine Culture, Routine Organism: Gram negative fide : O:GNR Isolated O:KLEBPN Isolated Organism: 1.2 Antibiotic Interpretation BRONWYN Status Urine Culture, RoutineSee Below For Report Urine Culture, Routine Organism: Gram negative fide : O:GNR Isolated O:KLEBPN Isolated Organism: 1.2 Antibiotic Interpretation BRONWYN Status Urine Culture, RoutinePerformed at: - [facility] [place] Urine Culture, Routine Organism: Gram negative fide : O:GNR Isolated O:KLEBPN Isolated Organism: 1.2 Antibiotic Interpretation BRONWYN Status Urine Culture, [address] [facility] [id number] Urine Culture, Routine Organism: Gram negative fide : O:GNR Isolated O:KLEBPN Isolated Organism: 1.2 Antibiotic Interpretation BRONWYN Status Urine Culture, RoutineLab Director: William Warner PhD, Phone: [phone] Urine Culture, Routine Organism: Gram negative fide : O:GNR Isolated O:KLEBPN Isolated Organism: 1.2 Antibiotic Interpretation BRONWYN Status Urine Culture, RoutineSee Below For Report Urine Culture, Routine Organism: Gram negative fide : O:GNR Isolated O:KLEBPN Isolated Organism: 1.2 Antibiotic Interpretation BRONWYN Status Urine Culture, RoutineAMOXICILLIN/CLAVULANIC ACID S F Urine Culture, Routine Organism: Gram negative fide : O:GNR Isolated O:KLEBPN Isolated Organism: 1.2 Antibiotic Interpretation BRONWYN Status Urine Culture, RoutineAmpicillin R F Urine Culture, Routine Organism: Gram negative fide : O:GNR Isolated O:KLEBPN Isolated Organism: 1.2 Antibiotic Interpretation BRONWYN Status Urine Culture, RoutineCefazolin R F Urine Culture, Routine Organism: Gram negative fide : O:GNR Isolated O:KLEBPN Isolated Organism: 1.2 Antibiotic Interpretation BRONWYN Status Urine Culture, RoutineCefepime R F Urine Culture, Routine Organism: Gram negative fide : O:GNR Isolated O:KLEBPN Isolated Organism: 1.2 Antibiotic Interpretation BRONWYN Status Urine Culture, RoutineCeftriaxone R F Urine Culture, Routine Organism: Gram negative fide : O:GNR Isolated O:KLEBPN Isolated Organism: 1.2 Antibiotic Interpretation BRONWYN Status Urine Culture, RoutineCefuroxime R F Urine Culture, Routine Organism: Gram negative fide : O:GNR Isolated O:KLEBPN Isolated Organism: 1.2 Antibiotic Interpretation BRONWYN Status Urine Culture, RoutineErtapenem S F Urine Culture, Routine Organism: Gram negative fide : O:GNR Isolated O:KLEBPN Isolated Organism: 1.2 Antibiotic Interpretation BRONWYN Status Urine Culture, RoutineGentamicin S F Urine Culture, Routine Organism: Gram negative fide : O:GNR Isolated O:KLEBPN Isolated Organism: 1.2 Antibiotic Interpretation BRONWYN Status Urine Culture, RoutineImipenem S F Urine Culture, Routine Organism: Gram negative fide : O:GNR Isolated O:KLEBPN Isolated Organism: 1.2 Antibiotic Interpretation BRONWYN Status Urine Culture, RoutineLevofloxacin I F Urine Culture, Routine Organism: Gram negative fide : O:GNR Isolated O:KLEBPN Isolated Organism: 1.2 Antibiotic Interpretation BRONWYN Status Urine Culture, RoutineMeropenem S F Urine Culture, Routine Organism: Gram negative fide : O:GNR Isolated O:KLEBPN Isolated Organism: 1.2 Antibiotic Interpretation BRONWYN Status Urine Culture, RoutineNitrofurantoin I F Urine Culture, Routine Organism: Gram negative fide : O:GNR Isolated O:KLEBPN Isolated Organism: 1.2 Antibiotic Interpretation BRONWYN Status Urine Culture, RoutineTetracycline S F Urine Culture, Routine Organism: Gram negative fide : O:GNR Isolated O:KLEBPN Isolated Organism: 1.2 Antibiotic Interpretation BRONWYN Status Urine Culture, RoutineTobramycin S F Urine Culture, Routine Organism: Gram negative fide : O:GNR Isolated O:KLEBPN Isolated Organism: 1.2 Antibiotic Interpretation BRONWYN Status Urine Culture, RoutineTrimethoprim/Sulfamethoxazole R F Urine Culture, Routine Organism: Gram negative fide : O:GNR Isolated O:KLEBPN Isolated Organism: 1.2 Antibiotic Interpretation BRONWYN Status Urine Culture, RoutinePiperacillin/Tazobactam S F Urine Culture, Routine Organism: Gram negative fide : O:GNR Isolated O:KLEBPN Isolated Organism: 1.2 Antibiotic Interpretation BRONWYN Status Performing Lab:see note LC - [facility] LB SEE REPORT - Electronics Scale Tester Id information not found for OBX-specific charcoal kiln burner legend Manual Differential Reviewed date:05/19/2024 12:07:50 PM Interpretation: Performing Lab: Notes/Report: [facility] ,Segmented Neutrophils % Nlmxjh01.043.0-75.0Band Neutrophils %2.00-5 % Lymphocytes Percent Manual6.020.5-60.0 %Monocytes Percent Manual7.01.7-12.0 % Eosinophils Percent Manual4.00.9-7.0 %Basophils Percent Manual5.00.2-2.0 % Metamyelocytes %1.0Segmented Neut Absolute Manual5.171.4-6.5 10 3/uLBand Neutrophils Absolute0.10.0-0.3 10 3/uLLymphocytes Absolute Manual0.411.20-3.80 10 3/uLMonocytes Absolute Manual0.480.30-0.80 10 3/uLEosinophils Absolute Manual 0.270.00-0.70 10 3/uLBasophils Abs Manual0.340.00-0.10 10 3/uLMetamyelocytes Absolute Manual0.22Qdjwvbqawtlj5+Ovalocytes1+Performing Lab:see noteML - [facility] LBSurgical Pathology ([facility]) (Not yet reviewed by provider) Interpretation: Performing Lab: Notes/Report: Path Number: [id number] -- Diagnosis -- Vaginal mucosa, excision: -Benign squamous mucosa with mild chronic inflammation. Colt Norton M.D. Electronically Signed Out bobby/06/04/2024 Clinical Information Pre-Op Diagnosis: VAGINAL VAULT PROLAPSE; MIDLINE CYSTOCELE; UNSPECIFIED URINARY INCONTINENCE; URETHRAL SPHINCTER DEFICIENCY, INTRINSIC Operative Findings: VAGINAL MUCOSA Operation Performed: VAGINAL ANTERIOR REPAIR WITH CYSTOSCOPY, VAGINAL VAULT REPAIR; CYSTOSCOPY INJECTION BULKAMID se Source of Specimen A: VAGINAL MUCOSA Gross Description IVAN FALK MUCOSA Received in formalin are two portions of wrinkled ballard-pink tissue, 6.0 x 3.4 x 0.3 cm in aggregate and 5.8 x 3.5 x 1.0 cm. No masses are seen on the surface of upon sectioning. Section of each, 1cs. joseluis Hernandez/se:06/03/2024 Microscopic Description Microscopic examination performed. Processing Lab: [address] [address] Interpretation Performed at [address] [address] SURGICAL PATHOLOGY CONSULTATION Patient Name: GLENIS PEREZ [facility] Rec: [id number] [facility] ANATOMIC PATHOLOGY [address] [place] [phone] CALCIUM Reviewed date:08/12/2024 02:05:22 PM Interpretation: Performing Lab: Notes/Report: [facility] ,Calcium9.18.5-10.1 mg/dLPerforming Lab:see note - [facility] LB CREATININE Reviewed date:08/12/2024 02:05:22 PM Interpretation: Performing Lab: Notes/Report: [facility] ,Creatinine0.770.55-1.02 mg/dLEstimated GFR ( Lis>60>=60 mL/min/1.73m 2Estimated GFR (Non- Kellie>60>=60 mL/min/1.73m 2Performing Lab:see note - [facility] LBCALCIUM Reviewed date:03/08/2025 12:54:53 PM Interpretation: Performing Lab: Notes/Report: [facility] ,Calcium9.28.5-10.1 mg/dLPerforming Lab:see note - [facility] LB CREATININE Reviewed date:03/08/2025 12:54:54 PM Interpretation: Performing Lab: Notes/Report: [facility] ,Creatinine0.750.55-1.02 mg/dLEstimated GFR ( Lis>60>=60 mL/min/1.73m 2Estimated GFR (Non- Kellie>60>=60 mL/min/1.73m 2Performing Lab:see note - [facility] LBUA DIP NONAUTO WO MICRO (26154) - IN OFFICE Reviewed date:05/05/2024 10:05:02 AM Interpretation: Performing Lab: Notes/Report: COLORyellowCLARITYcloudyGLUCOSEnegBILIRUBINnegKETONEnegSPECIFIC GRAVITY1.005 JBCRYhzvtxPN1VUHKLDBcnjGDFHCYTKMRJFvbsQZCSYVHpcbHKWPOGEDT ESTERASElargeCBC AUTO DIFF Reviewed date:05/19/2024 12:07:50 PM Interpretation: Performing Lab: Notes/Report: [facility] ,White Blood Count6.94.0-11.0 10 3/uLRed Blood Count3.944.20-5.40 10 6/uL Npewnfuewy82.212.0-16.0 g/yKKswvbtyqvn43.036.0-48.0 %Mean Corpuscular Aycnjm11.4 81.0-99.0 fLMean Corpuscular Ocxiafykoe85.026.7-34.0 pgMean Corpuscular HGB Conc 33.929.9-35.2 g/dLRed Cell Distribution Width12.411.0-15.0 %Platelet Koqxr164 150-450 10 3/uLMean Platelet Volume8.49.5-13.5 fLPerforming Lab:see noteML - [facility] Reason For Referral No Information Medications Medication SIG (Take, Route, Frequency, Duration) Notes Start Date End Date Status Estradiol 0.1 MG/GM Vaginal; Duration: 99 Days ActiveCoreg 12.5 MG1 tablet with food Orally Twice a dayActiveZyrTEC 10 MG1 tablet Orally Once a dayPRNActiveCalciumActiveVitamin D3 50 MCG (1999 UT)1 capsule Orally Once a dayActiveDoxycycline Monohydrate 100 MG1 capsule Orally bid; Duration: 10 days5ActiveNystatin 953371 UNIT/ML5 ml Mouth/Throat Four times a day; Duration: ctiveMelatonin 1 MG1 tablet at bedtime as needed Orally Once a dayActiveLevsin/SL 0.125 MG1 tablet under the tongue and allow to dissolve as needed for abd pain Sublingual AC and HS09/08/2023ctive hydroCHLOROthiazide 12.5 MG1 tablet in the morning Orally DailyActiveAspirin 325 MG1 tablet Orally Once a dayActiveTriamcinolone Acetonide 0.1 %1 application Externally Twice a day; Duration: ctiveALPRAZolam 0.25 MG 1 tablet Orally once; Duration: 1 days F41.9 4ActiveProlia 60 MG/MLas directed Subcutaneous every 6 monthsActive AlevePRNActiveOndansetron 4 MG1 tablet on the tongue and allow to dissolve = for nausea Orally Q 6 hours PRN; Duration: ctiveMacrobid 100 MG1 capsule with food Orally every 12 hrs; Duration: 14 days5ActiveOmeprazole 20 mg TAKE ONE CAPSULE BY MOUTH ONCE DAILY; Duration: 30 daysActive Immunizations Vaccine Route Administration Date Status Wilner Olivares Pfizer Syringe Pre -Filled 30 mcg/0.3 mL Unknown 01/26/2023 Administered Flu, Fluad (50709) 65 yrs + High Dose Seasonal (6692-7856)Ftsrlxt9701/20/2016 AdministeredFlu, Fluad (69529) 65 yrs + High Dose Seasonal ()Unknown 01/24/2017AdministeredFlu, Fluad (76418) 65 yrs+, single-dose syringe (5143-6092)Vhqeayy6702/09/2022dministeredFlu, Fluad (67250) 65 yrs+, single-dose syringe (4768-7941)Pdybono2501/26/2023dministeredFlu, Fluzone (74537) 6-35mo, multi-dose vial (9750-7125)Baivpzz4602/24/20155971EyeochlemcweLRSC-PUY-8 (COVID 19 Pfizer 30mcg/0.3mL)Pvlsefo91/04/7960ImhqqecmtnwhFYCC-MKR-9 (COVID 19 Pfizer 30mcg/0.3mL)Nvewblt94/25/0493PgkaghdpfcgnWSHR-QZM-2 (COVID 19 Pfizer 30mcg/0.3mL)Qduvgpl44/27/2720SxddkabvzerfGEFO-PQZ-6 (COVID 19 Pfizer 30mcg/0.3mL), katie rrznfnvYxldtoc48/12/1679QzxdcfqbgqpuBPRU-KDA-2 (COVID 19) bivalent 30 mcg/0.3 ml sialFifibhz54/19/2022Administered Social History Tobacco Use: Social History Observation Description Date Details (start date - stop date) Never Smoker NA - NA Tobacco Use/Smoking Question Answer Notes Patient is a nonsmoker Alcohol Screen (Audit-C) Question Answer Notes Did you have a drink containing alcohol in the p ast year? Yes How often did you have 6 or more drinks on one occasion in the past year?Never (0 point)How many drinks did you have on a typical day when you were drinking in the past year?1 or 2 drinks (0 point)How often did you have a drink containing alcohol in the past year?Weekly (3 points)Pzwrxx6TugnrynavbqdjbRpacwbipJDVXS-T (Standard) Question Answer Notes Did you have a drink containing alcohol in the p ast year? Yes How often did you have six or more drinks on one occasion in the past year?Never (0 point)How many drinks did you have on a typical day when you were drinking in the past year?1 or 2 drinks (0 point)How often did you have a drink containing alcohol in the past year?2 to 3 times a week (3 points)Ybxcji6Kscogogeflchxe Positive Problems Problem Type SNOMED Code ICD Code Onset Dates Problem Status W/U Status Risk Notes Problem Cardiac arrhythmia (120283796) O ther specified cardiac arrhythmias (I49.8) ActiveconfirmedProblemOsteoarthritis of knee (649910349)Unilateral primary osteoarthritis, left knee (M17.12)ActiveconfirmedProblemPain of left knee joint (finding) (150157027498902)Pain in left knee (M25.562)ActiveconfirmedProblem Dysuria (43551303)Dysuria (R30.0)ActiveconfirmedProblemExposure to communicable disease (873008738)Contact with and (suspected) exposure to other viral communicable diseases (Z20.828)ActiveconfirmedProblemHypertension (82657346) Hypertension (I10)ActiveconfirmedProblemOsteopenia (124898501)Osteopenia (M85.80)ActiveconfirmedProblemObstructive sleep apnea (56463629)Obstructive sleep apnea (G47.33)ActiveconfirmedProblemEczema (66529500)Eczema (L30.9)Active confirmedProblemBladder incontinence (630282468)Bladder incontinence (R32)Active confirmedProblemWell adult (404746232)Well adult (Z00.00)ActiveconfirmedProblem Localized edema (9478174)Localized edema (R60.0)ActiveconfirmedProblemNear syncope (233166503)Near syncope (R55)ActiveconfirmedProblemLaboratory test result abnormal (018675833)Abnormal laboratory test (R89.9)Activeconfirmed ProblemDyspepsia (020042304)Dyspepsia (K30)ActiveconfirmedProblemOverweight (670801573)Over weight (E66.3)ActiveconfirmedProblemMenopausal symptom (61419380)Menopausal symptoms (N95.1)ActiveconfirmedProblemAcute urinary tract infection (570044430)Acute UTI (N39.0)ActiveconfirmedProblemMultiple premature ventricular complexes (disorder) (387126235)Ventricular premature beats (I49.3) ActiveconfirmedProblemVaricose veins of bilateral lower limbs (15564696166852866)Varicose veins of both lower extremities without ulcer or inflammation (I83.93)ActiveconfirmedProblemPrimary hypertension (81933442) Primary hypertension (I10)ActiveconfirmedProblemNonsustained ventricular tachycardia (520845843)Nonsustained ventricular tachycardia (I47.29)Active confirmed Vital Signs Blood pressure diastolic 86 mm Hg 05/03/2024 Btcjgd29.75 in05/03/2024lood pressure ifqtwhzi392 mm Hg05/03/20240921Uikpup855.6 lbs05/03/2024BMI30.28 kg/m205/03/2024 Encounters Encounter Location Date Provider Diagnosis [address] [place] [address] 05/06/2024 Petr Mariano Abnormal laboratory test R89.9 [facility] [address] [place] [address] 03/16/2024 Petr Arangoy [facility] [place] [address] 03/18/2024oug [facility] [place] [address]Doug [facility] [place] [address]Doug HoyUrinary tract infection N39.0 and Cystocele N81.10[facility] [place] [place] [address]/25/2024oug HoyCough R05.9 and Gastroenteritis K52.9 Assessments Encounter Date Diagnosis (ICD Code) Assessment Notes Treatment Notes Treatment Clinical Notes Section Notes 03/18/2024 Cough (ICD-10 - R05.9) 05/03/2024Urinary tract infection (ICD-10 - N39.0)05/03/2024ystocele (ICD-10 - N81.10)05/06/2024bnormal laboratory test (ICD-10 - R89.9)03/18/2024 Gastroenteritis (ICD-10 - K52.9)Get plenty of rest. Stay hydrated by sucking on ice chips or taking small sips of water. You can also try drinking clear soda, clear broths or noncaffeinated sports drinks. Stop eating solid foods for a few hours to let your stomach settle. East back into eating by eating bland, dtab-re-uecovc foods like crackers, toast, gelatin, bananas, rice and chicken. Try to avoid foods/substances including dairy products, caffeine, alcohol, nicotine and fatty or highly seasoned foods. Medications such as ibuprofen or tylenol can make your stomach more upset, so use sparingly if at all. Also avoid dctf-gwr-xjeygdw anti-diarrheal medications because it can make it harder for your body to eliminate the virus. Plan Of Treatment Pending Test Test Name Order Date UA (URINALYSIS, COMPLETE) 10/13/2023 UA (URINALYSIS, COMPLETE) 01/03/2024 UA (URINALYSIS, COMPLETE) 01/21/2024 UA (URINALYSIS, COMPLETE) 02/01/2024 CULTURE, URINE w SENSITIVITY 02/01/2024 Surgical Pathology ([facility]) 06/03/2024 Urinalysis Microscopic 06/14/2023 Urinalysis Microscopic 03/11/2024 Urinalysis Microscopic 05/03/2024 Urine Culture 10/13/2023 Urine Culture 01/21/2024 URINE CULTURE 01/03/2024 UA (URINALYSIS), COMPLETE (61878) - IN O FFICE 09/23/2022 UA (Urinalysis, Dipstix only - w/o micro ) 09/23/2022 Basic Metabolic Panel (8) 08/16/2022 CBC W/AUTO DIFF 05/06/2024 CULTURE URINE 05/03/2024 CULTURE URINE 03/11/2024 URINE MICROSCOPIC ONLY 01/03/2024 URINE MICROSCOPIC ONLY 10/13/2023 URINE MICROSCOPIC ONLY 01/21/2024 US KIDNEYS BLADDER 06/14/2023 MG MAMM SCREEN 3D ALONSO CAD 01/04/2024 DEXA BONE DENSITY 01/04/2024 URINALYSIS MICROSCOPIC 02/01/2024 Insurance Providers Payer Name Payer Address Payer Phone Subscriber Number Group Number Insured Name Patient Relationship to Insured Coverage Start Date Coverage End Date [place] [address] [place] [address] [id number] Minerva Perez - [facility] the [facility] [address] [address] [place] [id number], SueSelf - patient is the insured Medical (General) History Medical History History ICD Code Over weight E66.3 Unilateral primary osteoarthritis, left knee M17.12 Obstructive sleep apnea G47.33 Pain in left knee M25.562 Contact with and (suspected) exposure to other viral communicable diseases Z20.828 Other specified cardiac arrhythmias I49. 8 Near syncope R55 Localized edema R60.0 Well adult Z00.00 Osteopenia M85.80 Bladder incontinence R32 Hypertension I10 Eczema L30.9 Dyspepsia K30 Menopausal symptoms N95.1 Surgical History Surgery Date(Month/Year) Left Total Knee Arthroscopy 09/13/2022 Right wrist repair Cardiac Ehsu2826ImhdcmcioqbpJdnvbdp Anterior Repair, Cystoscopy with Bulkamid Injection05/2024Hospitalization History Reason Date(Month/Year) see above
--- OUTSIDE RECORDS SUMMARY | 2025-03-14 14:43 | XMS_ITS | Clinical Summary ---
Author Organization [facility] Address [address] [place] [address] Care Team Providers Care Registered Medical Assistant Name Role Phone Jesse Forde MD Primary Care Provider [phone] Allergies Active AllergyReactionsCriticalityNoted VdsbRoaxyeqxTqekabuaZksvoozd53/23/2024 EnbgeupkwamnEufqqpa29/23/2024 Severe pain all over Jdycqzrzleu22/07/2022ulfamethoxazole-NvljzpoqudheFzvku99/13/2025Tetracycline 12/29/2021 Medications MedicationSigDispense QuantityRefillsLast FilledStart DateEnd DateStatus aspirin 325 mg tablet Take 1 tablet every day by oral route.Active omeprazole (PriLOSEC) [address] capsule Take 1 capsule by mouth in the morning.Active denosumab (Prolia) 60 mg/mL syringe Inject 60 mg under the skin 1 (one) time. EVERY 6 MONTHSActive melatonin tablet Take 1 mg by mouth at bedtime.Active cetirizine (ZyrTEC) 10 mg tablet Take 10 mg by mouth in the morning.Active cholecalciferol, vitamin D3, 50 mcg (2,000 unit) capsule Take 1 capsule by mouth in the morning and at bedtime.Active hydroCHLOROthiazide (Microzide) 12.5 mg capsule Indications:Primary hypertensionTAKE 1 CAPSULE (12.5 MG) BY MOUTH IN THE MORNING. 30 capsule ctive carvedilol (Coreg) 12.5 mg tablet Indications:Primary hypertension,Hypotension due to drugsTAKE 1 TABLET (12.5 MG) BY MOUTH WITH BREAKFAST AND WITH EVENING MEAL. 60 tablet /791402/ctive Active Problems ProblemNoted DateDiagnosed DateAbnormal laboratory test vchkrr7912/19/2024 Incomplete bladder biqlfrsg45/02/2025Postoperative state05/12/2024Midline gpfmskduy30/19/2024Unspecified urinary gwhrgpakgskb76/19/2024Urethral sphincter deficiency, intrinsic (ISD)04/11/2024Vaginal vault /19/2024 Nonsustained ventricular kjfgaluukxv73/15/2021 Assessment & Plan (01/08/2024 11:03 AM EDT): Currently no concerning symptoms and patient denies any palpitations. Continue carvedilol 12.5 mg twice daily. Ventricular premature beats11/29/2020 Assessment & Plan (01/08/2024 11:03 AM EDT): Continue carvedilol currently remains stable. Chest pain11/11/2020ssential wxctacxptlwy24/14/2021 Assessment & Plan (01/08/2024 11:02 AM EDT): Hypertension is well-controlled currently. Continue carvedilol and hydrochlorothiazide Renal function and electrolytes are normal She does admit to occasional lightheadedness with low blood pressure denies any syncope or near syncope. Admits that typical days she does not hydrate well enough and likes to drink ice tea thereforewe discussed adequate hydration. Varicose veins of lower cujuyldpt88/14/2021 Encounters DateTypeDepartmentCare MzvlVgtbkkiaozz34/28/2025 11:00 AM EDTOffice Visit [facility] [place] [address] [place] [address] Reji Olson MD Ventricular premature beats (Primary Dx); Primary hypertensionfrom Last 3 Months Immunizations ImmunizationAdministration DatesNext DueCovid (Pfizer) Bivalent Booster =>12 YRS 02/09/2022Influenza, High Dose Seasonal, Preservative Free01/24/2017,01/20/2016 Influenza, High-dose Seasonal, Quadrivalent, Preservative Free01/18/2021 Influenza, Seasonal, Quadrivalent, Fqhqcncups56/19/2022Influenza, injectable, lxjthukjwaiq38/03/2015Influenza, trivalent, rkblqezrna27/16/2020Pfizer SARS-CoV-2 Chzhnjzkmoy02/12/2022,01/18/2021,06/18/2020,05/28/2020 Family History Medical HistoryRelationNameCommentsLEFT BUNDLE BRANCH BLOCKBrotherCoronary artery diseaseMotherHeart attackMotherRelationNameStatusCommentsBrotherFather DeceasedMotherDeceased Social History Tobacco UseTypesPacks/DayYears UsedDateSmoking Tobacco: NeverSmokeless Tobacco: Never Tobacco Cessation:Counseling Given: Not Answered Alcohol UseStandard Drinks/WeekCommentsYes0 (1 standard drink = 0.6 oz pure alcohol)OCCASIONALUT Safety & EnvironmentAnswerDate RecordedFear of Current or Ex-PartnerNot on file06/15/2023Emotionally AbusedNot on file06/15/2023hysically AbusedNot on file06/15/2023Sexually AbusedNot on file06/15/2023hysically or Sexually AbusedNot on file06/15/2023CommentsUnknownSex and Gender InformationValueDate RecordedSex Assigned at MekynHzuhkc45/26/2025 11:20 AM EDT Legal PogErocrf54/30/2022 12:38 AM EDTGender BwnyxucfNiwuje88/26/2025 11:20 AM EDTSexual OrientationHeterosexual or Kllnejbr93/26/2025 11:20 AM EDT Last Filed Vital Signs Vital SignReadingTime TakenCommentsBlood Gveqobuq983/80012/19/2024 11:07 AM EDT Yqung105312/19/2024 11:07 AM EDTTemperature--Respiratory Rate--Oxygen Saturation 97%12/19/2024 11:07 AM EDTInhaled Oxygen Concentration--Ibevjb58.3 kg (166 lb) 12/19/2024 11:07 AM AKKImdeae595 cm (5' 3 )12/19/2024 11:07 AM EDTBody Mass Index29.41012/19/2024 11:07 AM EDT Plan of Treatment Health MaintenanceDue DateLast DoneCommentsMedicare Annual Wellness (AWV) 1950Depression Wafdjsstj63/05/1961Adult Omoawye3610/26/1970Pneumococcal Vaccine: 50+ Years (1 of 1 - PCV)1998Zoster Vaccines (1 of 2)1998 Fall Risk Ansmxnnho87/05/2014COVID-19 Vaccine (2024- season)2024 04/30/2024, 01/26/2023, 02/09/2022, Additional history existsInfluenza Vaccine (#1)501/10/2024, 01/26/2023, 02/09/2022, Additional history existsHIB VaccinesAged OutNo longer eligible based on patient's age to complete this topic HPV VaccinesAged OutNo longer eligible based on patient's age to complete this topicIPV VaccinesAged OutNo longer eligible based on patient's age to complete this topicMeningococcal B VaccineAged OutNo longer eligible based on patient's age to complete this topicMeningococcal VaccineAged OutNo longer eligible based on patient's age to complete this topicRotavirus VaccinesAged OutNo longer eligible based on patient's age to complete this topic Insurance Care Teams Team MemberRelationshipSpecialtyStart DateEnd Jesse Forde MD [address] [facility] [place] [phone] PCP - [facility]12/29/21
--- OUTSIDE RECORDS SUMMARY | 2025-03-14 14:43 | XMS_ITS | Clinical Summary ---
Author Organization [facility] Address [address] [address] Care Team Providers Care Preschool Teacher Name Role Phone Jesse Forde MD Primary Care Provider [phone] Allergies Active AllergyReactionsCriticalityNoted UyonQozfjkitQgjgoocplspf35/27/2024 Aqxttiywwho34/07/2022 Other Reaction(s): Unknown OjpuegkzfxihOtcbGtr71/07/2022 Medications MedicationSigDispense QuantityRefillsLast FilledStart DateEnd DateStatus aspirin 325 MG tablet Take 1 tablet by mouth in the morning.Active calcium citrate (Calcitrate) 950 (200 Ca) MG tablet Take 400 mg by mouth in the morning and 400 mg in the evening.Active carvedilol (Coreg) 12.5 MG tablet TAKE ONE TABLET BY MOUTH TWICE A DAY (WITH BREAKFAST AND EVENING MEAL)Active cetirizine (ZyrTEC) 10 MG tablet Take 10 mg by mouth in the morning.Active denosumab (Prolia) 60 MG/ML solution prefilled syringe Inject 60 mg under the skin.Active hydroCHLOROthiazide (HYDRODiuril) 25 MG tablet TAKE 1/2 TABLET EVERY DAY BY ORAL ROUTE.Active estradiol (Estrace) 0.1 MG/GM vaginal cream Apply 1 g topically 3 (three) times a weekActive omeprazole (PriLOSEC) [address] capsule Take 20 mg by mouth in the morning. Take before meals. Do not crush or chew.. Active Family History Medical HistoryRelationNameCommentsHeart diseaseFatherDiabetesMotherHeart diseaseMotherHypertensionMotherHeart diseaseOthersiblingsHypertensionOther siblingsRelationNameStatusCommentsFatherMotherOthersiblings Social History Tobacco UseTypesPacks/DayYears UsedDateSmoking Tobacco: NeverSmokeless Tobacco: Never Tobacco Cessation:Counseling Given: Not Answered CommentsUnknownSex and Gender InformationValueDate RecordedSex Assigned at BirthNot on fileLegal FgjAmdguw08/15/2023 7:03 PM EDTGender IdentityNot on fileSexual OrientationNot on file Last Filed Vital Signs Vital SignReadingTime TakenCommentsBlood Hwpfodcc536/7403/20/2024 11:16 AM EST Rvzbe28676/27/2024 11:16 AM ESTTemperature--Respiratory Rate--Oxygen Saturation 98%03/20/2024 11:16 AM ESTInhaled Oxygen Concentration--Imxkqe84.8 kg (165 lb) 03/20/2024 11:16 AM RRELjhxks333 cm (5' 3 )03/20/2024 11:16 AM ESTBody Mass Index29.23105/20/2023 11:16 AM EST Plan of Treatment Not on file Insurance Care Teams Team MemberRelationshipSpecialtyStart DateEnd Date Jesse Forde MD PCP - GeneralFamily Medicine11/30/22
--- OUTSIDE RECORDS SUMMARY | 2025-03-14 14:43 | XMS_ITS | Clinical Summary ---
Author Organization [facility] Address [address], [address] [place] [address] Care Team Providers Care Wet And Dry Sugar Bin Operator Name Role Phone Jesse Forde MD Primary Care Provider [phone] Allergies Active AllergyReactionsCriticalityNoted BlqfGhymzwagBuhopypcQsvniaxt00/23/2024 YzzhaclyuiwfVmvmtid71/23/2024 Severe pain all over PenicillinsOther (See Comments)02/07/2024 - reaction unknown States did tolerate AMoxicillin Sulfamethoxazole-QfduhrdewykbCmovd65/13/1372QhewbilzwvxuOqdmHhr46/07/2022 Medications MedicationSigDispense QuantityRefillsLast FilledStart DateEnd DateStatus omeprazole (PRILOSEC) 20 MG delayed release capsule Take 1 capsule by mouth dailyActive carvedilol (COREG) 12.5 MG tablet Take 1 tablet by mouth 2 times daily (with meals)Active denosumab (PROLIA) 60 MG/ML SOSY SC injection Inject 1 mL into the skin onceActive vitamin D (VITAMIN D3) 50 MCG (1999 UT) CAPS capsule Take 1 capsule by mouth dailyActive calcium citrate (CALCITRATE) 950 (200 Ca) MG tablet Take 1 tablet by mouth dailyActive cetirizine (ZYRTEC) 10 MG tablet Take 1 tablet by mouth dailyActive hydroCHLOROthiazide 12.5 MG capsule 1 xcvgjiu3612/01/2023ctive ibuprofen (ADVIL;MOTRIN) 600 MG tablet Take 1 tablet by mouth every 6 hours as needed for Pain 30 tablet 5Active sennosides-docusate sodium (SENOKOT-S) 8.6-50 MG tablet Take 2 tablets by mouth 2 times daily as needed for Constipation 60 tablet 5Active Multiple Vitamins-Minerals (ONE-A-DAY 50 PLUS PO) Take by mouthActive estradiol (ESTRACE) 0.1 MG/GM vaginal cream Indications:Atrophic vulvovaginitisPlace 1 g vaginally Twice a Week 42.5 g 5Active Active Problems ProblemNoted DateDiagnosed DateIncomplete bladder zfuovukk19/02/2025S/p anterior vaginal repair, vagina vault repair, cysto, Bulkamid 06/03/2500Vaginal vault givsbboe24/19/2024Midline oniniopom74/19/2024Unspecified urinary uvmjozwajepo08/19/2024Urethral sphincter deficiency, intrinsic (ISD)04/11/2024 Resolved Problems ProblemNoted DateDiagnosed DateResolved DatePostoperative vkmrxmddxri79/02/2025 07/23/2024 Family History Medical HistoryRelationNameCommentsHeart DiseaseFatherErrol HillDiabetes type 2 MotherMarcella HillHeart DiseaseMotherMarcella HillRelationNameStatusComments BrotherAliveFatherErrol HillDeceasedMotherMarcella HillDeceasedSister 1Alive Sister 2Alive Social History Tobacco UseTypesPacks/DayYears UsedDateSmoking Tobacco: NeverSmokeless Tobacco: Never Tobacco Cessation:Counseling Given: Not Answered Alcohol UseStandard Drinks/WeekCommentsYes1 (1 standard drink = 0.6 oz pure alcohol)not dailyInterpersonal Safety Domain Source: IP Abuse ScreeningAnswer Date RecordedPhysical mqzejDfvybv61/10/2025Verbal rsbijOrlwod43/10/2025Emotional fmpsgHnltai19/10/2025Financial joofyQnqoac45/10/2025Sexual nqqffSbsknv32/10/2025 CommentsNoSex and Gender InformationValueDate RecordedSex Assigned at ZkvxlWpseda49/22/2025 8:59 PM EDTLegal VeiOhhubs61/13/2024 10:12 AM EDTGender LnztgoawEnedkd01/22/2025 8:59 PM EDTSexual QmbmekoschxQlajvhqp41/22/2025 8:59 PM EDT Last Filed Vital Signs Vital SignReadingTime TakenCommentsBlood Jushqfxu321/7406 10:14 AM EDT Owqoj987410/15/2024 10:14 AM DQGAocfahxsvsq52.8 ??C (98.2 ??F)07/16/2024 9:55 AM EDTRespiratory Vnqr147906/03/2024 3:00 PM ESTOxygen Fyzqfxvhtq03%07/16/2024 9:55 AM EDTInhaled Oxygen Concentration--Lonisc58.8 kg (167 lb)07/16/2024 9:55 AM EDT Nsjwza114 cm (5' 3 )06/03/2024 9:46 AM ESTBody Mass Index29.58006/03/2024 9:46 AM EST Plan of Treatment DateTypeDepartmentCare Team (Latest Contact Info)Hqgwmclcqkw90/09/2025 9:00 AM ESTAppointment [facility] [address] [place] [address], [address] [place] [phone] Sukhwinder Ball, DO [address] [facility] [address] [place] [address] Tasha Cedeon, PT [address] [facility] [place] [address] [place] [address] Medicare- 20% co-ins, $257 ded/met, no co-pay. Follow Medicare guidelines. [employer]- covers the 20% left by Medicare. Follow Medicare guidelines. 04/01/2025 10:00 AM ESTOffice Visit [facility] [address] [place] [address] [address] [place] [address] Sukhwinder Ball, DO [address] [facility] [address] [place] [address] Follow up after PFTHealth MaintenanceDue DateLast DoneCommentsDepression Screen 1960Hepatitis C ojlgin7110/26/1966DTaP/Tdap/Td vaccine (1 - Tdap)10/27/1967 Pneumococcal 50+ years Vaccine (1 of 1 - PCV)1998Shingles vaccine (1 of 2) 1998DEXA (modify frequency per FRAX score)10/27/2003Respiratory Syncytial Virus (RSV) or age 60 yrs+ (1 - 1-dose 75+ series)10/27/2023nnual Wellness Visit (Medicare)02/08/2024Flu vaccine (#1)/10/2024, 01/26/2023, 02/09/2022, Additional history existsCOVID-19 Vaccine ( season)/10/2024, 01/26/2023, 02/09/2022, Additional history exists Hepatitis A vaccineAged OutNo longer eligible based on patient's age to complete this topicHepatitis B vaccineAged OutNo longer eligible based on patient's age to complete this topicHib vaccineAged OutNo longer eligible based on patient's age to complete this topicMeningococcal (ACWY) vaccineAged OutNo longer eligible based on patient's age to complete this topicMeningococcal B vaccineAged OutNo longer eligible based on patient's age to complete this topicPolio vaccineAged OutNo longer eligible based on patient's age to complete this topic Medical Devices ImplantedTypeAreaManufacturerDevice IdentifierShelf Expiration DateModel / Serial / LotSystem Bulking Prc Bulkamid Urethral - [id number] Implanted:Qty: 1 on 06/03/2024 by [facility] Fall [facility]: [id number] / / [id number] Insurance Care Teams Team MemberRelationshipSpecialtyStart Date Jesse Forde MD [address] [place] [address] [facility] - [facility] Pmfseeuc25/17/24
--- OUTSIDE RECORDS SUMMARY | 2025-03-14 14:46 | XMS_ITS | CCD ---
Author Organization [facility] Care Team Providers Care [employer] Name Role Phone CHRISTIAN VELEZ Attending Unavailable CHRISTIAN VELEZ Admitting Unavailable GOPIYJESSE Referring Unavailable GOPIYJESSE Primary Care Unavailable Linda Hall Unavailable GOPIY [...] DR CHAVES Primary Care Unavailable ZIEBER, DR YON Miller Consulting Unavailable HOY ., DR CHAVES Primary Care Unavailable HOY ., DR CHAVES Admitting Unavailable HOY ., DR CHAVES Attending Unavailable HOY ., DR CHAVES Consulting Unavailable HOY ., DR CHAVES Primary Care Unavailable HOY ., DR CHAVES Admitting Unavailable HOY ., DR CHAVES Attending Unavailable HOY ., DR CHAVES Consulting Unavailable ZIEBER, DR YON Miller Consulting Unavailable HOY ., DR CHAVES Attending Unavailable HOY ., DR CHAVES Primary Care Unavailable HOY ., DR CHAVES Admitting Unavailable HOY ., DR CHAVES Consulting Unavailable CRANBERRY ISLES, DR LISET Cuadra Consulting Unavailable HOY ., [...] Unavailable Elma, Tomás A Admitting Unavailable Hoy, Jesse M Primary Care Unavailable Elma, Tomás A Attending Unavailable Elma, Tomás A Admitting Unavailable Hoy, Jesse M Primary Care Unavailable Elma, Tomás A Attending Unavailable Elma, Tomás A Admitting Unavailable Hoy, Jesse M Primary Care Unavailable Elma, Tomás A Attending Unavailable Hoy, Jesse M Primary Care Unavailable Elma, Tomás A Admitting Unavailable Paul Willsin A Attending Unavailable Jesse Mariano MD Primary Care Provider [phone] FRANK VILLARREAL Attending Unavailable FRANK VILLARREAL Attending Unavailable FRANK VILLARREAL Attending Unavailable ERNIE DONNELLY Attending Unavailable Jesse Mariano MD Primary Care Provider [phone] CHANTELLE DAY Attending Unavailable CHANTELLE DAY Referring Unavailable HOY, JESSE M Primary Care Unavailable CHANTELLE DAY Attending Unavailable CHANTELLE DAY Referring Unavailable HOY, JESSE M Primary Care Unavailable CHANTELLE DAY Attending Unavailable CHANTELLE DAY Referring Unavailable HOY, JESSE M Primary Care Unavailable DEBBY WAGNER Referring Unavailable HOY, JESSE M Primary Care Unavailable CHANTELLE DAY Admitting Unavailable CHANTELLE DAY Attending Unavailable GOPIY, JESSE M Primary Care Unavailable CHANTELLE DAY Attending Unavailable CHANTELLE DAY Referring Unavailable HOY, JESSE M Primary Care Unavailable TATIANNA ARANA Attending Unavailable FABRICE, CHRISTOPHER Attending Unavailable Allergies Allergy ClassificationReported Allergen(s)Allergy TypeDate of OnsetReaction(s) FacilityPenicillins (antibiotic) (1 source)PenicillinDrug Hzrbwcr15-02-0653[facility] RepositoryTetracyclines (antibiotic) (1 source)TetracyclinesDrug Hqbniwb71-00-7591[facility] (7 sources)PenicillinDrug AllergyUnknowCox [facility] [employer] Other (16 sources)Tetracycline; Translations: [TETRACYCLINE]Drug Rkvxcue35-63-5128 hives, [facility] [employer] Other (2 sources)Penicillins; Translations: [PENICILLINS]Drug allergy (disorder) 91-45-8858[facility] (1 source)TetracyclineDrug Fyxtplb55-97-2446[facility]Brown [facility] (1 source)PenicillinsDrug allergy (disorder)71-60-1920Nzakizdpw Repository (1 source)TetracyclineDrug Fuunhit03-97-0276Abwpqalfp Repository (3 sources)PenicillinsDrug Nggugqg64-59-3070[facility] (8 sources)levoFLOXacin; Translations: [LEVOFLOXACIN]Drug Yvhvmrj84-42-2465 [facility] (6 sources)cefdinir; Translations: [CEFDINIR]Drug Oowhyqx76-00-8136NyvnswbjIlb [facility] (5 sources)PenicillinsPropensity to adverse reactions to bnck24-68-8060Tvqmf (See Comments)[facility] (6 sources)Sulfamethoxazole / Trimethoprim; Translations: [SULFAMETHOXAZOLE-TRIMETHOPRIM]Drug Jyyyocq63-13-1648EfhrsShu [facility] Medications Current Medications MedicationDrug Class(es)DatesSig (Normalized)Sig (Original)acetaminophen 325 mg / oxyCODONE hydrochloride 5 mg oral tablet (3 sources)Opioid AgonistStart: 06-03-2024 End: 28-21-0939bxbw 1 tablet by mouth every six hours as needed for pain, then take 4 tablets by mouth once daily as needed for painoxyCODONE-acetaminophen (PERCOCET) 5-325 MG per tablet Indications: Post-op pain Take 1 tablet by mouth every 6 hours as needed for Pain for up to 5 days. Take lowest dose possible to manage pain MaxDaily Amount: 4 tablets 10 tablet 06/03/2024 06/08/2024 Active Start: 06-03-2024 End: 57-73-6189lisg 1 tablet by mouth every twenty-four hours as needed2 tablet, Oral, ONCE PRN, 1 dose, Starting on Mon06/03/24 at 1157, Until Mon06/04/24 at 1157, Pain Severe (7-10), Maximum dose of acetaminophen is 4000 mg from all sources in 24 hours., PACU onlyalbuterol 0.833 mg/ml / ipratropium bromide 0.167 mg/ml inhalation solution (1 source)Anticholinergic, beta2-Adrenergic AgonistStart: 06-03-2024 End: 98-38-7940uwak 1 dose by inhalation once as needed1 Dose, Inhalation, ONCE PRN, 1 dose, Starting on Mon06/03/24 at 1157, Until Mon06/04/24 at 1157, Sh ortness of Breath, Initiate RT Bronchodilator Protocol: No, PACU onlyaspirin 325 mg oral tablet (11 sources)Platelet Aggregation Inhibitor, Nonsteroidal Anti-inflammatory Drug take 1 tablet by mouth once dailyaspirin 325 MG tablet Take 1 tablet by mouth daily ActiveAspirin Activecalcium chloride 0.0014 meq/ml / potassium chloride 0.004 meq/ml / sodium chloride 0.103 meq/ml / sodium lactate 0.028 meq/ml injectable solution (1 source)Start: 28-65-5526EbzktLBDovt, at 125 mL/hr, CONTINUOUS, Starting on Mon06/03/24 at 1000, Pre-op (day of surgery)calcium citrate 950 mg oral tablet (8 sources)take 1 tablet by mouth once dailycalcium citrate (CALCITRATE) 950 (200 Ca) MG tablet Take 1 tablet by mouth daily Activetake 1 tablet by mouth in the morningcalcium citrate (Calcitrate) 950 (200 Ca) MG tablet Take 400 mg by mouth in the morning and 400 mg in the evening. Activecarvedilol 12.5 mg oral tablet (15 sources)alpha-Adrenergic Cesario, beta-Adrenergic Blockertake 1 tablet by mouth twice daily at mealtimecarvedilol (COREG) 12.5 MG tablet Take 1 tablet by mouth 2 times daily (with meals) Activetake 1 tablet by mouth every twelve hours Coreg 3.125 MG 1 tablet with food Orally Twice a day for 30 day(s) Active cephalexin 250 mg oral capsule (2 sources)Cephalosporin AntibacterialStart: 06-03-2024 End: 55-09-4322kinc 1 capsule by mouth three times dailycephALEXin (KEFLEX) 250 MG capsule Take 1 capsule by mouth 3 times daily for 7 days 21 capsule 06/0306/10/2024 ActiveStart: 06-03-2024 End: 25-49-5706qxdnHYWBdf (KEFLEX) 250 MG capsule Take 1 capsule by mouth 2 times daily for 7 days Take for 7 daysif discharged home with a camacho catheter. Take for 3 days if discharged home without camacho catheter. 14 capsule 06/03/2024 06/03/2024 Discontinuedcetirizine hydrochloride 10 mg oral tablet (8 sources)Histamine-1 Receptor Antagonisttake 1 tablet by mouth once daily cetirizine (ZYRTEC) 10 MG tablet Take 1 tablet by mouth daily Active cholecalciferol 0.05 mg oral capsule (5 sources)Vitamin Dtake 1 capsule by mouth once dailyvitamin D (VITAMIN D3) 50 MCG (1999 UT) CAPS capsule Take 1 capsule by mouth daily Active1 ml denosumab 60 mg/ml prefilled syringe (8 sources)RANK Ligand Inhibitordenosumab (PROLIA) 60 MG/ML SOSY SC injection Inject 1 mL into the skin once Activedenosumab (Prolia) 60 MG/ML solution prefilled syringe Inject 60 mg under the skin. Active1 ml diphenhydrAMINE hydrochloride 50 mg/ml cartridge (1 source)Histamine-1 Receptor AntagonistStart: 06-03-2024 End: 17-09-973517.5 mg, IntraVENous, ONCE PRN, 1 dose, Starting on Mon06/03/24 at 1157, Until Mon06/04/24 at 1157,Itching, PACU onlydocusate sodium 50 mg / sennosides, residential 8.6 mg oral tablet (5 sources)Start: 41-52-7634spla 2 tablets by mouth twice daily as needed for constipationsennosides-docusate sodium (SENOKOT-S) 8.6-50 MG tablet Take 2 tablets by mouth 2 times daily as needed for Constipation 60 tablet 1 06/03/2024 Activeestradiol 0.1 mg/ml vaginal cream (8 sources)EstrogenStart: 03-53-4480fgjfgfdpw (ESTRACE) 0.1 MG/GM vaginal cream Indications: Atrophic vulvovaginitis Place 1 g vaginally Twice a Week 42.5 g 12/05/2024 Activeestradiol (ESTRACE) 0.1 MG/GM vaginal cream Place 2 g vaginally daily Activeestradiol (Estrace) 0.1 MG/GM vaginal cream Apply 1 g topically 3 (three) times a week ActiveHandicap placards as directed (5 sources)Start: 13-44-1821Jrumwsqs placards as directed as directed as directed as directed for 365 days Sep, ActivehydroCHLOROthiazide 12.5 mg oral capsule (13 sources)Thiazide DiureticStart: 12-01-2023 End: 94-23-8864crwunCNBZSEhcyayhaz 12.5 MG capsule 1 capsule 12/01/2023 11/30/2024 Activetake 0.5 tablet by mouth once dailyhydroCHLOROthiazide (HYDRODiuril) 25 MG tablet TAKE 1/2 TABLET EVERY DAY BY ORAL ROUTE. Active hydroCHLOROthiazide Activeibuprofen 600 mg oral tablet (5 sources)Nonsteroidal Anti-inflammatory DrugStart: 63-97-9720rzha 1 tablet by mouth every six hours as needed for painibuprofen (ADVIL;MOTRIN) 600 MG tablet Take 1 tablet by mouth every 6 hours as needed for Pain 30 tablet 1 06/03/2024 ActiveIron (6 sources)Iron Activelabetalol (NORMODYNE;TRANDATE) injection 10 mg (1 source)Start: 36-19-1727jedmtvgxk (NORMODYNE;TRANDATE) injection 10 mg10 ml lidocaine hydrochloride 10 mg/ml injection (1 source)Antiarrhythmic, Amide Local AnestheticStart: 06-03-2024 End: 67-39-9952fcpp 1 dose intravenously once daily1 mL, IntraDERmal, ONCE PRN, 1 dose, Starting on Mon06/03/24 at 0940, Until Mon06/04/24 at 0940, IVstart, Pre-op (day of surgery)2 ml metoclopramide 5 mg/ml prefilled syringe (1 source)Dopamine-2 Receptor AntagonistStart: 06-03-2024 End: 55-46-676341 mg, IntraVENous, ONCE PRN, 1 dose, Starting on Mon06/03/24 at 1157, Until Mon06/04/24 at 1157, Nausea, Secondary antiemetic therapy., PACU only2 ml midazolam 1 mg/ml injection (1 source)BenzodiazepineStart: 06-03-2024 End: mg, IntraVENous, ONCE PRN, 1 dose, Starting on Mon06/03/24 at 1157, Until Mon06/04/24 at 1157, Anxiety, PACU onlyMultiple Vitamins-Minerals (ONE-A-DAY 50 PLUS PO) (3 sources)Multiple Vitamins-Minerals (ONE-A-DAY 50 PLUS PO) Take by mouth Activenaloxone 0.4 mg in 10 mL sodium chloride syringe (1 source)Start: 75-71-3653JvcdqCGFqeb, PRN, Opioid Reversal, Starting on Mon06/03/24 at 1157, PRN if respiratory rate is lessthan 6/min and patient is difficult to arouse then notify physician STAT. Mix 9 mL of sodium chloride 0.9% with 0.4 mg (1 mL) of naloxone (NARCAN) in 10 mL syringe. (Note: dilution is 0.04 mg/mL) Give 0.08 mg (2 mL of special dilution), slow IV push, repeat up to 0.4 mg (10 mL) or until patient is responsive to physical stimulation and respiratory rate is equal to or greater than 6 breaths/min. Continue to observe, if no response within 3 minutes of administration of 0.4 mg (10 mL) total, repeat dose (0.4 mg as administered previously). Concentration 0.04 mg/mL, PACU onlyNitrofurantoin (7 sources)Nitrofuran AntibacterialNitrofurantoin Activenitrofurantoin, macrocrystals 25 mg / nitrofurantoin, monohydrate 75 mg oral capsule (1 source)Nitrofuran AntibacterialStart: 06-11-2024 End: 69-89-0630gnay 1 capsule by mouth twice dailynitrofurantoin, macrocrystal- monohydrate, (MACROBID) 100 MG capsule Indications: Abnormal urine Take 1 capsule by mouth 2 times daily for 7 days 14 capsule 06/11/2024 06/18/2024 Activeomeprazole 20 mg delayed release oral capsule (14 sources)Proton Pump Inhibitortake 1 capsule by mouth once dailyomeprazole (PRILOSEC) 20 MG delayed release capsule Take 1 capsule by mouth daily Active Omeprazole Activeondansetron 4 mg disintegrating oral tablet (3 sources)Serotonin-3 Receptor AntagonistStart: 68-35-1006ozav 1 tablet by mouth every eight hours as needed for nauseaondansetron (ZOFRAN-ODT) 4 MG disintegrating tablet Take 1 tablet by mouth every 8 hours as needed for Nausea or Vomiting 30 tablet 06/03/2024 ActiveStart: 06-03-2024 End: mg, IntraVENous, ONCE PRN, 1 dose, Starting on Mon06/03/24 at 1157, Until Mon06/04/24 at 1157, Nausea, PACU only5 ml sodium chloride 9 mg/ml injection (6 sources)Start: -40 mL, IntraVENous, EVERY 12 HOURS SCHEDULED (2 times per day), First dose on Mon06/03/24 at 2100, Until Discontinued, For Line Patency: Peripheral IV = 5 mL; Midline or Central Line = 10 mL/lumen.If following IV push medication, administer flush at same rate as the IV push. Flush volume is determined by type of infusion therapy being given. For non- viscous solutions use: Peripheral IV = 5 mL Midline or Central Line = 10 mL/lumen For viscous solutions (i.e. blood components, parenteral nutrition, contrast media, or after obtaining blood sample) use: Peripheral IV = 10 mL Midline or CentralLine = 20 mL/lumen, PACU onlyStart: 32-27-0837yild 1 mL intravenously every hour as neededIntraVENous, at 100 mL/hr, PRN, If patient receiving piggyback infusions without ordered maintenance IV fluids or with frequent/long duration piggyback infusions, Starting on Mon06/03/24 at 1157, Administer at the same rate as the piggyback being infused., PACU onlyStart: 06-78-5171vdgj 20 mL intravenously every hourIntraVENous, at 5-250 mL/hr, PRN, if patient receiving piggyback infusions and maintenance fluids are not ordered OR KVO fluids to protect IV site / prevent frequent line interruptions/ long duration, Starting on Mon06/03/24 at 0940, For piggyback infusion, administer at same rate as piggyback for a total of 25 mL. Enter 25 mL into dose field and piggyback rate into rate field of order. If piggyback is infusing at a rate less than 100 mL/hr, enter 25 mL into dose field and 100 mL/hr into rate field of order. For KVO fluids, enter rate of 20 mL/hr or less into rate field of order., Pre-op (dayof surgery)Start: -40 mL, IntraVENous, EVERY 12 HOURS SCHEDULED (2 times per day), First dose on Mon06/03/24 at 1000, Until Discontinued, For Line Patency: Peripheral IV = 5 mL; Midline or Central Line = 10 mL/lumen.If following IV push medication, administer flush at same rate as the IV push. Flush volume is determined by type of infusion therapy being given. For non-viscous solutions use: Peripheral IV = 5 mL Midline or Central Line = 10 mL/lumen For viscous solutions (i.e. blood components, parenteral nutrition, contrast media, or after obtaining blood sample) use: Peripheral IV = 10 mL Midline or CentralLine = 20 mL/lumen, Pre-op (day of surgery)Start: - 40 mL, IntraVENous, PRN, Starting on Mon06/03/24 at 1157, Until Discontinued, Line Care, After every IV line use, For Line Patency: Peripheral IV = 5 mL; Midline or Central Line = 10 mL/lumen. If following IV push medication, administer flush at same rate as the IV push. Flush volume is determined by type of infusion therapy being given. For non-viscous solutions use: Peripheral IV = 5 mL Midline or Central Line = 10 mL/lumen For viscous solutions (i.e. blood components, parenteral nutrition,contrast media, or after obtaining blood sample) use: Peripheral IV = 10 mL Midline or Central Line= 20 mL/lumen, PACU onlyVitamin D 1000 UNIT (7 sources)take 1 tablet by mouth once dailyVitamin D 1000 UNIT 1 tablet Orally Once a day for 30 day(s) Active Completed/Discontinued Medications MedicationDrug Class(es)DatesSig (Normalized)Sig (Original)acetaminophen 500 mg oral tablet (6 sources)Start: 37-35-2717axvm 2 tablets by mouth every eight hours Acetaminophen 500 MG 2 tablets Orally Every 8 hours for 30 days August, Not-Takingclindamycin 300 mg oral capsule (11 sources)Lincosamide AntibacterialStart: 67-29-1194vvsm 2 capsules by mouth every hourClindamycin HCl 300 MG 2 capsules Orally 1 hour prior to procedure for 1 day(s) Dec, Not-TakingStart: 07-41-3911dxja 1 capsule by mouth every twelve hoursClindamycin HCl 300 MG 1 capsule Orally every 12 hrs for 5 days August, Not-Takingcyclobenzaprine hydrochloride 10 mg oral tablet (6 sources)Muscle RelaxantStart: 97-16-2315jceh 0.5-1 tablets by mouth every eight hoursCyclobenzaprine HCl 10 MG 1/2 to 1 tab Orally Every 8 hours for 14 days August, Not-Takingdocusate sodium 100 mg oral capsule (6 sources)Start: 72-38-3576mtuw 1 capsule by mouth every twelve hoursColace 100 MG 1 capsule Orally Twice a day for 14 days August, Not-Takingdoxycycline hyclate 100 mg oral tablet (7 sources)Tetracycline-class DrugStart: 83-85-7010qxig 1 tablet by mouth every twelve hoursDoxycycline Hyclate 100 MG 1 tablet Orally Twice a day for 7 days August, Not-Taking End: 36-07-1748svuv 1 capsule by mouth twice dailydoxycycline hyclate (VIBRAMYCIN) 100 MG capsule Take 1 capsule by mouth 2 times daily 06/03/2024 Dis continued (Stop Taking at Discharge)gabapentin 100 mg oral capsule (1 source)Anti-epileptic AgentStart: 06-03-2024 End: 68-27-7827wysr 1 dose by mouth fggu589 mg, Oral, ONCE, 1 dose, On Mon06/03/24 [place] 54973 ml HYDROmorphone hydrochloride 1 mg/ml cartridge (1 source)Opioid AgonistStart: .5 mg, IntraVENous, EVERY 5 MIN PRN, 4 doses, Starting on Mon06/03/24 at 1157, Until Discontinued,Pain Severe (7-10), Phase I - Initial therapy for severe pain., PACU onlymeperidine hydrochloride 50 mg/ml injectable solution (1 source)Opioid AgonistStart: 16-13-850656.5 mg, IntraVENous, EVERY 5 MIN PRN, 2 doses, Starting on Mon06/03/24 at 1157, Until Discontinued, Shivering, , May give every 5 minutes to max of 25mg., PACU onlymethylPREDNISolone 4 mg oral tablet (4 sources)CorticosteroidStart: 41-55-8013Rjuxnl 4 MG as directed Orally for 6 days Oct, Not-Taking1 ml morphine sulfate 2 mg/ml cartridge (1 source)Opioid AgonistStart: mg, IntraVENous, EVERY 5 MIN PRN, 10 doses, Starting on Mon06/03/24 at 1157, Until Discontinued, Pain Moderate (4-6), Phase I - Initial therapy for moderate pain., PACU onlyoxyCODONE hydrochloride 5 mg oral tablet (6 sources)Opioid AgonistStart: 39-83-2861ckgw 1 tablet by mouth every four hours as needed for painoxyCODONE HCl 5 MG 1 tablet Orally Every 4 hours, as needed for pain for 7 days August, Not-Takingphenazopyridine hydrochloride 100 mg oral tablet (1 source)Start: 06-03-2024 End: 38-12-1783fook 1 dose by mouth once at zmxryonc185 mg, Oral, ONCE, 1 dose, On Mon06/03/24 at 1000, Take with food. May cause discoloration of urine. traMADol hydrochloride 50 mg oral tablet (6 sources)Opioid AgonistStart: 32-71-4770pvoi 1 tablet by mouth every four to six hourstraMADol HCl 50 MG 1 tablet Orally Every 4-6 hours August, Not-Taking Problems Active Problems Problem ClassificationProblemDateDocumented DateEpisodic/ChronicCardiac dysrhythmias (6 sources)Ventricular tachycardia; Translations: [Ventricular premature depolarization]Onset: 97-91-1958RlrnfkcKwimpiywkr heart failure; nonhypertensive (1 source)Unspecified diastolic (congestive) heart failure; Translations: [UNSPECIFIED DIASTOLIC HEART FAILURE]Onset: 32-32-7483OtupjqfVldflhtkw of lipid metabolism (1 source)Hyperlipidemia, unspecified; Translations: [HYPERLIPIDEMIA UNSPECIFIED]Onset: 03-18-3473LtwtvprBzfpmnasi hypertension (7 sources)Essential (primary) hypertension; Translations: [ESSENTIAL PRIMARY HYPERTENSION]Onset: 33-90-5533JavulvhAqcte and electrolyte disorders (4 sources)Hypo-osmolality and hyponatremia; Translations: [HYPO-OSMOLALITY AND HYPONATREMIA]Onset: 07-44-8034HiipttvzWagumuadcgwca symptoms and ill-defined conditions (9 sources)Urinary incontinence; Translations: [Unspecified urinary incontinence]Onset: 951300-84-5461QzmowpqLlwfp valve disorders (1 source)Rheumatic tricuspid insufficiency; Translations: [RHEUMATIC TRICUSPID INSUFFICIENCY]Onset: 50-92-6049WbeotlrYfuocwznoego with complications and secondary hypertension (1 source)Hypertensive heart disease with heart failure; Translations: [HTN HEART DISEASE W/HEART FAIL]Onset: 83-73-1568LuyntiwDfkmw disorders and dislocations; trauma-related (10 sources)Derangement of posterior horn of medial meniscus due to old tear or injury, left knee; Translations: [Degeneration of cartilage AND/OR meniscus of knee]Onset: 85-90-0185JxkkvnpTlcntcmdewkhcg (10 sources)Osteoarthritis of left knee joint; Translations: [Unilateral primary osteoarthritis, left knee]ChronicOsteoporosis (4 sources)Age-related osteoporosis without current pathological fracture; Translations: [AGE-REL OSTEOPOR W/OCURR PATH FX]Onset: 15-97-0824BkzxsacFynru bone disease and musculoskeletal deformities (3 sources)Chondromalacia, unspecified siteEpisodicOther connective tissue disease (4 sources)History of total knee arthroplasty; Translations: [Presence of left artificial knee joint]ChronicOther connective tissue disease (3 sources)Presence of left artificial knee jointChronicOther connective tissue disease (3 sources)History of left total knee replacement; Translations: [Presence of left artificial knee joint]ChronicOther connective tissue disease (1 source)Synovial cyst of popliteal space [Vick], left knee; Translations: [SYNOVIAL CYST POP SPACE LEFT KNEE]Onset: 02-87-0650VjkujorjCicuq ear and sense organ disorders (1 source)Impacted cerumen, right earEpisodicOther lower respiratory disease (2 sources)Snoring; Translations: [Snoring]89-69-3409JllefjpbGcood nervous system disorders (1 source)Postoperative pain ; Translations: [Other acute postprocedural pain] 83-80-7041TwgocggxUlnyz non-traumatic joint disorders (5 sources)Pain in left knee; Translations: [PAIN IN LEFT KNEE]Onset: 09-17-2021 EpisodicOther upper respiratory infections (1 source)Acute sinusitis, unspecifiedEpisodicProlapse of female genital organs (14 sources)Vaginal vault prolapse; Translations: [Female genital prolapse, unspecified]Onset: 900145-55-5493HyqkguiEdxyrdxk codes; unclassified (4 sources)Obstructive sleep apnea (adult) (pediatric); Translations: [OBSTRUCTIVE SLEEP APNEA]Onset: 88-33-9642GcpnecbPownihhf codes; unclassified (2 sources)Obstructive sleep apnea syndrome; Translations: [Obstructive sleep apnea (adult) (pediatric)]53-03-2281LfyrosiGzotnpxh codes; unclassified (2 sources)Hypersomnia; Translations: [Hypersomnia, unspecified]03-20-2024 ChronicResidual codes; unclassified (1 source)Other specified postprocedural statesEpisodicUnclassified (1 source)Presence of left artificial knee joint; Translations: [Presence of left artificial knee joint]Onset: 91-69-3630Dsolvpxbmlng (1 source)Unilateral primary osteoarthritis, left knee; Translations: [Unilateral primary osteoarthritis, left knee]Onset: 32-73-6294Nxjnerxcxdtj (1 source)Encounter for other preprocedural examination; Translations: [Encounter for other preprocedural examination]Onset: 72-33-8542Goirsforolyb (1 source)Encounter for preprocedural laboratory examination; Translations: [Encounter for preprocedural laboratory examination]Onset: 08-12-2022 Unclassified (1 source)Other ventricular tachycardia; Translations: [Other ventricular tachycardia]Onset: 59-39-3355Leacrsh tract infections (7 sources)Urinary tract infectious disease; Translations: [Urinary tract bacterial infections]EpisodicViral infection (1 source)Other viral agents as the cause of diseases classified elsewhere Episodic Past or Other Problems Problem ClassificationProblemDateDocumented DateEpisodic/ChronicDeficiency and other anemia (1 source)Anemia, unspecified; Translations: [ANEMIA UNSPECIFIED]Onset: 31-47-7858GfnhlhcvWmlffpyi mellitus without complication (1 source)Other abnormal glucose; Translations: [OTHER ABNORMAL GLUCOSE]Onset: 90-28-1349NnudumuhCzexjxtgokewm symptoms and ill-defined conditions (9 sources)Frequency of micturition; Translations: [Abnormal urine]Onset: 22-64-5330BeyxhpslUardqizy; including migraine (1 source)Headache; including migraineMalaise and fatigue (4 sources)Other fatigue; Translations: [OTHER FATIGUE]Onset: 80-53-3150Ozjfihte Other aftercare (3 sources)Surgical follow-up; Translations: [Encounter for follow-up examination after completed treatment for conditions other than malignant neoplasm]Onset: 06-23-2024 Resolved: 396298-17-8402OnyptqotBhpyt bone disease and musculoskeletal deformities (5 sources)Other specified disorders of bone density and structure, unspecified site; Translations: [OTH D/O BONE DEN STRUCT UNS SITE]Onset: 40-76-1570Dutkancg Other diseases of bladder and urethra (6 sources)Urethral intrinsic sphincter deficiency; Translations: [Intrinsic sphincter deficiency (ISD)]Onset: [id number]t diseases of bladder and urethra (1 source)Intrinsic sphincter deficiency (ISD); Translations: [Intrinsic sphincter deficiency (ISD)]Onset: 73-17-2484BahcfgaySaxqa disorders of stomach and duodenum (1 source)Functional dyspepsia; Translations: [FUNCTIONAL DYSPEPSIA]Onset: 11-57-9704HzndfubwQvugv gastrointestinal disorders (4 sources)Diarrhea, unspecified; Translations: [DIARRHEA UNSPECIFIED]Onset: 53-30-4171KfopmnhbKvlkh nervous system disorders (1 source)Other acute postprocedural pain; Translations: [Other acute postprocedural pain]Onset: 21-88-6052YscebyxyLxfza screening for suspected conditions (not mental disorders or infectious disease) (1 source)Encounter for screening mammogram for malignant neoplasm of breast; Translations: [ENC SCR MAMMO MALIG NEOPLASM BREAST]Onset: 44-08-9159Lgwivlbt Residual codes; unclassified (6 sources)Postoperative state; Translations: [Other specified postprocedural states]Onset: 362542-95-2712KipdhfekNrvubgu (1 source)Syncope and collapse; Translations: [SYNCOPE AND COLLAPSE]Onset: 30-08-1094DbinwvblVrgsabrqybah (1 source)Other ventricular tachycardia; Translations: [Other ventricular tachycardia]Onset: 01-08-2024 Results Test NameValueInterpretationReference RangeFacilityOffice Visiton 12-19-2024 Follow-up [id number] Glenis Perez 1950 F Date Provider Department Center [facility] Family History Problem Relation Age of Onset Heart attack Mother Coronary artery disease Mother Other Brother Family Status - Relation Status Age at Mother Father Brother Level of Service:62797 LA OFFICE/OUTPATIENT ESTABLISHED LOW MDM 20 MIN Reason for Visit and Comments: Hypertension [703405] 1 year follow up [Other] Nonsustained ventricular tachycardia [Other] Hyperlipidemia [182] Sleep Apnea [348]NormalUnCleveland Clinic Mentor HospitalCult,Urineon 44-47-8721Ageg,UrineSpecimen Description .CLEAN CATCH URINE Special Requests Site: Urine Culture PSEUDOMONAS AERUGINOSA >100,000 CFU/ML PSEUDOMONAS AERUGINOSA 2ND COLONY TYPE >100,000 CFU/ML Report Status FINAL 06/15/2024 SUSCEPTIBILITY Organism PSEUDOMONAS AERUGINOSA Method BRONWYN Cefepime 2 SUSCEPTIBLE Levofloxacin 1 SUSCEPTIBLE Piperacillin/Tazobactam 8 SUSCEPTIBLE Tobramycin <=1 SUSCEPTIBLE Amikacin <=2 SUSCEPTIBLE Meropenem <=0.25 SUSCEPTIBLE SUSCEPTIBILITY Organism PSEUDOMONAS AERUGINOSA Method BRONWYN Cefepime 2 SUSCEPTIBLE Levofloxacin 0.25 SUSCEPTIBLE Piperacillin/Tazobactam 8 SUSCEPTIBLE Tobramycin <=1 SUSCEPTIBLE Amikacin <=2 SUSCEPTIBLE Meropenem <=0.25 SUSCEPTIBLESusceptibleMercy Sutter Medical Center Of Santa RosaComment on above:Performed By: #### [facility] #### [place] [employer] [address] [place] [address] Machine Load Clerk: PEDRO Del Riourgical Pathology Reporton [id number] Pathology Report(NOTE) Path Number: [id number] -- Diagnosis -- Vaginal mucosa, excision: -Benign squamous mucosa with mild chronic inflammation. Liset Norton M.D. Electronically Signed Out bobby/06/04/2024 Clinical Information Pre-Op Diagnosis: VAGINAL VAULT PROLAPSE; MIDLINE CYSTOCELE; UNSPECIFIED URINARY INCONTINENCE; URETHRAL SPHINCTER DEFICIENCY, INTRINSIC Operative Findings: VAGINAL MUCOSA Operation Performed: VAGINAL ANTERIOR REPAIR WITH CYSTOSCOPY, VAGINAL VAULT REPAIR; CYSTOSCOPY INJECTION BULKAMID se Source of Specimen A: VAGINAL MUCOSA Gross Description GLENIS PEREZ VAGINAL MUCOSA Received in formalin are two portions of wrinkled ballard-pink tissue, 6.0 x 3.4 x 0.3 cm in aggregate and 5.8 x 3.5 x 1.0 cm. No masses are seen on the surface of upon sectioning. Section of each, 1cs. tm Caridad David/se:06/03/2024 Microscopic Description Microscopic examination performed. Processing Lab: [address] [address] Interpretation Performed at [address] [address] SURGICAL PATHOLOGY CONSULTATION Patient Name: GLENIS PEREZ [facility] Rec: [id number] [facility] [employer] [facility] ANATOMIC PATHOLOGY [address] [place] [phone] NoGalion HospitalOffice Visiton 97-05-6999Piucid-up [id number] Glenis Perez 1950 F Date Provider Department Center 01/08/2024 TATIANNA BLANCHARD CARD Margi Hos Family History Problem Relation Age of Onset Heart attack Mother Coronary artery disease Mother Other Brother Family Status - Relation Status Age at Mother Brother Level of Service:16814 LA OFFICE/OUTPATIENT ESTABLISHED SF MDM 10 [facility]XR [facility] 2Von 98-08-4564ZV knee LT 2V [facility] [place] [address] XRay Report Signed Patient: Glenis Perez MR#: [id number] 40 : 1950 Acct:[id number] Age/Sex: 72 / F ADM Date: 02/27/23 [place] [facility] [place]: Type: [facility] CLI Attending Dr: Tomás Wills DO [...] Raúl Woo M.D.02/27/2023 3:08 PM Dictation Location: [place] [address] Transcribed By: [facility] 02/27/23 1508 Dictated By: Raúl Woo DO 02/27/23 1508 Signed By: 02/27/23 1508NoAdena Fayette Medical CenterXR knee LT 2V[facility] kidthing Other XR knee LT 2VFRPark Sanitarium [employer] Other XR knee LT [id number] [place] [address] kidthing Other XR knee LT 2VST[address] [place] [id number] kidthing Other XR knee LT 2VXRRoane Medical Center, [place] kidthing Other XR knee LT 2VSCedar County Memorial Hospital [employer] Other XR knee LT 2VPatient: Glenis Perez MR#: [id number] [facility] kidthing Other XR knee LT 1Z47Hxjtc [employer] Other XR knee LT 2VDOB: 1950 Acct:[id number] [employer] Other XR knee LT 2VAge/Sex: 72 / F ADM Date: 02/27/23Neche [employer] Other XR knee LT 2VLoc: SOXD Room: Type: [facility] [employer] Other XR knee LT 2VAttending Dr: Tomás Wills [facility] [employer] Other XR knee LT 2VCopies to: Tomás Wills, [facility] [employer] Other XR knee LT 2VOrdering Provider: Tomás Wills DO [facility] kidthing Other XR knee LT 2VDate of Service: 02/27/23Neche [employer] Other XR knee LT 2VAccession #: ([id number]) XR/XR knee LT 2V: Status post total left knee replacementNeche [employer] Other XR knee LT 2V2 views LEFT knee plain filmNeche [employer] Other XR knee LT 2VCOMPARISON: 09/13/22Neche [employer] Other XR knee LT 2VHISTORY: Status post LEFT total knee arthroplastyNeche [employer] Other XR knee LT 2VACUTE FINDINGS: NoneContractor [employer] Other XR knee LT 2VDEGENERATIVE CHANGE: UnremarkableContractor [employer] Other XR knee LT 2VSOFT TISSUE FINDINGS: UnremarkableContractor [employer] Other XR knee LT 2VJOINT EFFUSION: NoneContractor [employer] Other XR knee LT 2VPOSTOP CHANGES: Stable hardwareTipjoy [employer] Other XR knee LT 2VBONE MINERALIZATION: AdequateNeche [employer] Other XR knee LT 2VORDER #: [id number] XR/XR knee LT 2VTipjoy [employer] Other XR knee LT 2VIMPRESSION: Uncomplicated LEFT knee arthroplastyContractor Copilot Other XR knee LT 2VImpression dictated by: Raúl Woo M.D.02/27/2023 3:08 PMNAmsterdam Memorial Hospital kidthing Other xr knee LT 2VDictation Location: [id number] [employer] Other xr knee LT 2VTranscribed By: PWS 02/27/[address] [place] [address] [employer] Other xr knee LT 2VDictated By: Raúl Woo DO 02/27/[address] [place] [address] [employer] Other xr knee LT 2VSigned By:Neche [employer] Other xr knee LT 2V104/29/[address] [place] [address] [employer] Other Lon 09-13-2022L Specimen: [id number] Received: 09/13/22 Status: LUZ Garrison Num: [id number] Spec Type: Surgical Subm Dr: Tomás Wills DO Tissues: A Joint/Knee (LT KNEE) Procedures: Gross/Micro L4, Decalcification Age/ Patient Sex Location Account Attending Physician ChrisGlenisBeatrice 71/F [place] [id number] Tomás Wills DO SPEC NUM: [id number] RECD: 09/13/22 STATUS: LUZ GARRISON NUM: [id number] SETH: 09/13/22 DR: Tomás Wills DO ENTERED: 09/13/22 ST. [...] is taken. Gross examination only. CPT Codes 70321 Gross Photo Specimen: [id number] Received: 09/13/22 Status: LUZ Garrison Num: [id number] Spec Type: Surgical Subm Dr: Tomás Wills DO Tissues: A Joint/Knee (LT KNEE) Procedures: Gross/Micro L4, Decalcification Patient: Glenis Perez [id number] (Continued) Signed (signature on file) Kendra Guzman MD 09/14/[address] [place], [place] [address]XR knee LT 2Von 40-42-6592HA knee LT [address] [place] [address] XRay Report Signed Patient: Glenis Perez MR#: [id number] 40 : 1950 Acct:[id number] Age/Sex: 71 / F ADM Date: 09/13/22 Loc: [place] Room: Type: [facility] Attending Dr: Tomás Wills DO Copies to: Tomás A Elma, DO Ordering Provider: Tomás Wills DO Date [...] Sameer Guy M.D.09/13/2022 3:01 PM Dictation Location: [place] [address] Transcribed By: [facility] 09/13/22 1501 Dictated By: Sameer Guy II, MD 09/13/22 1500 Signed By: 09/13/22 1501NoAdena Fayette Medical CenterPROF CHEM 8 (BAS METB)on 12-07-4967Srcmo gap [Moles/Vol]10.3 mmol/LNormalBrown Memorial HospitalComment on above:Performed By: #### BMP #### [facility] [address] [place] [address] Dr. Duong AlcarazCalcium [Mass/Vol]9.3 mg/dLNormal8.5-10.1[facility] Comment on above:Performed By: #### BMP #### [facility] [address] [place] [address] Dr. Duong AlcarazChloride [Moles/Vol]95 mmol/LCritically smv41-589Xsv [facility] HospitalComment on above:Performed By: #### BMP #### [facility] [address] [place] [address] Dr. Duong AlcarazCO2 [Moles/Vol]30.6 mmol/THnuqjx61.0-32.0The [facility] Comment on above:Performed By: #### BMP #### [facility] [address] [place] [address] Dr. Yilan ChangCreatinine [Mass/Vol]0.69 mg/dLNormal0.55-1.02The [facility] Memorial HospitalComment on above:Performed By: #### BMP #### [facility] [address] [address] [address] Duong ArzolaGFR-AF ANDORRAN>60Normal>=60The [facility] Memorial HospitalComment on above:Performed By: #### BMP #### [facility] [address] [address] [address] Duong ArzolaGFR-NON AF ANDORRAN>60Normal>=60The [facility] Memorial HospitalComment on above:Performed By: #### BMP #### [facility] [address] [address] [address] Duong AlcarazGlucose [Mass/Vol]83 mg/fKBspqes50-272Psc [facility] Comment on above:Performed By: #### BMP #### [facility] [address] [place] [address] Dr. Duong AlcarazPotassium [Moles/Vol]3.9 mmol/LNormal3.5-5.1The [facility] Comment on above:Performed By: #### BMP #### [facility] [address] [place] [address] Dr. Duong AlcarazSodium [Moles/Vol]132 mmol/LCritically knq977-612Vtr [facility] HospitalComment on above:Performed By: #### BMP #### [facility] [address] [address] [address] Duong AlcarazUrea nitrogen [Mass/Vol]12.0 mg/dLNormal7.0-18.0The [facility] Memorial HospitalComment on above:Performed By: #### BMP #### [facility] [address] [address] [address] Duong AlcarazUrea nitrogen/Creatinine [Mass ratio]17.4 mg/mgNormalThe [facility] Memorial HospitalComment on above:Performed By: #### BMP #### [facility] [address] [place] [address] Dr. Duong AlcarazCMP with reflex to A1Con 94-73-9901Lvfarjw [Mass/Vol]3.9 g/dL Normal3.5-5.7FDoctors HospitalComment on above:Performed By: #### CBC, CMP wRFX A1C #### [facility] [address] [place] [address] USAAlbumin/Globulin [Mass ratio]1.5 {ratio}NormalComment on above:Performed By: #### CBC, CMP wRFX A1C #### [facility] [address] [place] [address] USAALP [Catalytic activity/Vol]34 U/OUwygwt32-738UoroxuwewComment on above:Result Comment: PERFORMED BY: [place] [address] PATHOLOGIST SERVICE DESK ASSOCIATE YAMILETH PERRY M.D.Performed By: #### CBC, CMP wRFX A1C #### [place] [address] USAALT [Catalytic activity/Vol]14 U/LNormal7-52Comment on above:Performed By: #### CBC, CMP wRFX A1C #### [place] [address] USAAnion gap [Moles/Vol]11.1 mmol/LNormal6.0-15.0Comment on above:Performed By: #### CBC, CMP wRFX A1C #### [facility] [address] [place] [address] USAAST [Catalytic activity/Vol]18 U/MWphvaq15-19ClzdymampComment on above:Performed By: #### CBC, CMP wRFX A1C #### [facility] [address] [place] [address] USABilirubin [Mass/Vol]0.6 mg/dLNormal0.3-1.0Comment on above:Performed By: #### CBC, CMP wRFX A1C #### [place] [address] USACalcium [Mass/Vol]8.4 mg/dLLow8.6-10.3FDoctors HospitalComment on above:Performed By: #### CBC, CMP wRFX A1C #### [facility] [address] [place] [address] USAChloride [Moles/Vol]94 mmol/UUjb39-418JjuiosymhComment on above:Performed By: #### CBC, CMP wRFX A1C #### [facility] [address] [place] [address] USACO2 [Moles/Vol]28.0 mmol/FVrsdjv19.0-31.0Comment on above:Performed By: #### CBC, CMP wRFX A1C #### [facility] [address] [place] [address] USACreatinine [Mass/Vol]0.68 mg/dLNormal0.60-1.20Comment on above:Performed By: #### CBC, CMP wRFX A1C #### [facility] [address] [place] [address] USAGFR/1.73 sq M.predicted MDRD (S/P/Bld) [Vol rate/Area] mL/min/{1.73_m2}NormalComment on above: Performed By: #### CBC, CMP wRFX A1C #### [facility] [address] [place] [address] USAGlobulin (S) [Mass/Vol]2.6 g/dLNormalComment on above:Performed By: #### CBC, CMP wRFX A1C #### [facility] [address] [place] [address] USAGlucose [Mass/Vol]88 mg/nNLyjlia44-851OmifijzrlComment on above:Performed By: #### CBC, CMP wRFX A1C #### [facility] [address] [place] [address] USAPotassium [Moles/Vol]4.1 mmol/LNormal3.5-5.1FDoctors HospitalComment on above:Performed By: #### CBC, CMP wRFX A1C #### [facility] [address] [place] [address] USAProtein [Mass/Vol]6.5 g/dLNormal6.4-8.9Comment on above:Performed By: #### CBC, CMP wRFX A1C #### [facility] [address] [place] [address] USASodium [Moles/Vol]129 mmol/KZqw438-624DenuhpdqhComment on above:Performed By: #### CBC, CMP wRFX A1C #### [place] [address] USAUrea nitrogen [Mass/Vol]19 mg/dLNormal7-25Comment on above:Performed By: #### CBC, CMP wRFX A1C #### [place] [address] USAComplete Blood Count Auto Diffon 42-01-9888Zcrzbveaw (Bld) [#/Vol]0.1 10*3/uLNormal0.0-0.2FDoctors HospitalComment on above:Result Comment: PERFORMED BY: [place] [address] PATHOLOGIST SERVICE DESK ASSOCIATE YAMILETH PERRY M.D.Performed By: #### CBC, CMP wRFX A1C #### [place] [address] USABasophils/100 WBC (Bld)1.3 %Normal.Comment on above:Performed By: #### CBC, CMP wRFX A1C #### [place] [address] USAEosinophils (Bld) [#/Vol]0.1 10*3/uLNormal0.0-0.45 Comment on above:Performed By: #### CBC, CMP wRFX A1C #### [place] [address] USAEosinophils/100 WBC (Bld)1.6 %Normal.Comment on above:Performed By: #### CBC, CMP wRFX A1C #### [facility] [address] [place] [address] USAErythrocyte distribution width (RBC) [Ratio]13.6 %Normal 11.9-15.3FDoctors HospitalComment on above:Performed By: #### CBC, CMP wRFX A1C #### [facility] [address] [place] [address] USAHematocrit (Bld) [Volume fraction]35.9 %Qyckjq39.0-46.4 Comment on above:Performed By: #### CBC, CMP wRFX A1C #### [place] [address] USAHemoglobin (Bld) [Mass/Vol]12.6 g/eOOsdrtb24.8-15.4 Comment on above:Performed By: #### CBC, CMP wRFX A1C #### [place] [address] USALymphocytes (Bld) [#/Vol]0.7 10*3/uLLow1.00-4.8Comment on above:Performed By: #### CBC, CMP wRFX A1C #### [place] [id number] USALymphocytes/100 WBC (Bld)14.6 %Normal.Comment on above:Performed By: #### CBC, CMP wRFX A1C #### [place] [address] USAMCH (RBC) [Entitic mass]31.8 keKzyqcm57.7-34.3FDoctors HospitalComment on above:Performed By: #### CBC, CMP wRFX A1C #### [place] [address] USAMCV (RBC) [Entitic vol]90.7 lUWprvqe95-732UbmghzyafComment on above:Performed By: #### CBC, CMP wRFX A1C #### [facility] [address] [place] [address] USAMean Corpuscular HGB Conc35.0 g/lBImjqij43.0-35.0Comment on above:Performed By: #### CBC, CMP wRFX A1C #### [facility] [address] [place] [address] USAMonocytes (Bld) [#/Vol]0.5 10*3/uLNormal0.0-0.8Comment on above:Performed By: #### CBC, CMP wRFX A1C #### [place] [address] USAMonocytes/100 WBC (Bld)10.4 %Normal.Comment on above:Performed By: #### CBC, CMP wRFX A1C #### [place] [address] USANeutrophils (Bld) [#/Vol]3.7 10*3/uLNormal1.8-7.7FDoctors HospitalComment on above:Performed By: #### CBC, CMP wRFX A1C #### [place] [address] USANeutrophils/100 WBC (Bld)72.1 %Normal.Comment on above:Performed By: #### CBC, CMP wRFX A1C #### [place] [address] USANRBC%0.0 /100{WBC}Normal0-0.5FDoctors HospitalComment on above:Performed By: #### CBC, CMP wRFX A1C #### [facility] [address] [place] [address] USAPlatelet mean volume (Bld) [Entitic vol]6.2 fLLow6.3-10.7 Comment on above:Performed By: #### CBC, CMP wRFX A1C #### [address] [place] [address] USAPlatelets (Bld) [#/Vol]241 10*3/iUEemoqj718-836AxpwukflvComment on above:Performed By: #### CBC, CMP wRFX A1C #### [facility] [address] [place] [address] USARBC (Bld) [#/Vol]3.96 10*6/uLNormal3.60-5.00Comment on above:Performed By: #### CBC, CMP wRFX A1C #### [facility] [address] [place] [address] USAWBC (Bld) [#/Vol]5.1 10*3/uLNormal3.8-11.6FDoctors HospitalComment on above:Performed By: #### CBC, CMP wRFX A1C #### [facility] [address] [place] [address] USADipstick and Microscopicon 89-86-3316Gwsplxvapk (U)Clear NormalCleBarberton Citizens HospitalComment on above:Order Comment: Name Collection Type:: Clean-Voided MidstreamPerformed By: #### ADDONUAPLUS #### [place] [address] USABacteria,UrineNone SeenNormalNone SeenComment on above:Order Comment: Name Collection Type:: Clean- Voided MidstreamPerformed By: #### ADDONUAPLUS #### [place] [address] USABilirubin,UrineNegativeNormalNegativeComment on above:Order Comment: Name Collection Type:: Clean- Voided MidstreamPerformed By: #### ADDONUAPLUS #### [place] [address] USAColor (U)YellowNormalYellowComment on above:Order Comment: Name Collection Type:: Clean-Voided MidstreamPerformed By: #### ADDONUAPLUS #### [facility] [address] [place] [address] USAGlucose Ql (U)NormalNormalNormalComment on above:Order Comment: Name Collection Type:: Clean-Voided MidstreamPerformed By: #### ADDONUAPLUS #### [facility] [address] [place] [address] USAHyaline Casts,UrineNone SeenNormal0-8Comment on above:Order Comment: Name Collection Type:: Clean- Voided MidstreamResult Comment: PERFORMED BY: [place] [address] PATHOLOGIST SERVICE DESK ASSOCIATE YAMILETH PERRY M.D.Performed By: #### ADDONUAPLUS #### [facility] [address] [place] [address] USAKetones Ql (U)NegativeNormalNegAdams County Regional Medical CenterComment on above:Order Comment: Name Collection Type:: Clean- Voided MidstreamPerformed By: #### ADDONUAPLUS #### [facility] [address] [place] [address] USALeukocyte esterase Test strip Ql (U)3+HighNegative Comment on above:Order Comment: Name Collection Type:: Clean-Voided MidstreamPerformed By: #### ADDONUAPLUS #### [facility] [address] [place] [address] USANitrite,UrineNegativeNormalNegativeComment on above:Order Comment: Name Collection Type:: Clean- Voided MidstreamPerformed By: #### ADDONUAPLUS #### [facility] [address] [place] [address] USAOccult Blood,UrineNegativeNormalNegativeComment on above:Order Comment: Name Collection Type:: Clean- Voided MidstreamResult Comment: PERFORMED BY: [place] [address] PATHOLOGIST SERVICE DESK ASSOCIATE JIANLAN SUN M.D.Performed By: #### ADDONUAPLUS #### [place] [address] USApH (U)7.0 [pH]Normal5.0-9.0Comment on above:Order Comment: Name Collection Type:: Clean-Voided MidstreamPerformed By: #### ADDONUAPLUS #### [place] [address] USAProtein,UrineNegativeNormalNegativeComment on above:Order Comment: Name Collection Type:: Clean- Voided MidstreamPerformed By: #### ADDONUAPLUS #### [place] [address] USARBC LM.HPF (Urine sed) [#/Area]0 /[HPF]Normal0-[address] [place], [place] [address]Comment on above:Order Comment: Name Collection Type:: Clean-Voided MidstreamPerformed By: #### ADDONUAPLUS #### [place] [address] USASpecificy [place],Urine1.928Vyrmkt7.001-1.030Comment on above:Order Comment: Name Collection Type:: Clean-Voided MidstreamPerformed By: #### ADDONUAPLUS #### [place] [address] USASquamous Epithelial Cell,UrineNone SeenNormal0-2FDoctors HospitalComment on above:Order Comment: Name Collection Type:: Clean-Voided MidstreamPerformed By: #### ADDONUAPLUS #### [place] [address] USAUrobilinogen,UrineNormalNormalNormalComment on above:Order Comment: Name Collection Type:: Clean- Voided MidstreamPerformed By: #### ADDONUAPLUS #### [place] [address] USAWBC,Hpvfc7-0Nxdwze1-1FdazicdwfDoctors Hospital Comment on above:Order Comment: Name Collection Type:: Clean-Voided Midstream Performed By: #### ADDONUAPLUS #### [facility] [address] [place] [id number] [facility]ITALMRI KNEE LT WO CONon 83-92-5897NBA KNEE LT WO CON EXAMINATION: MRI KNEE LT WO CON HISTORY: Pain in left [...] 5. Large Vick's cyst. Electronically authenticated by: YON MADISON Date: 2022-07-04 12:13[facility] HospitalCOVID/FLU/RSV RT-PCRon 11-02-7106MXPP-CoV-2 (COVID-19) RNA CASH+probe Ql (Unsp spec)NegativeNorth [employer] Other COVID/FLU/RSV RT-PCRNegativeNossm health care [employer] Other CULTURE URINEon 26-85-9806HYBPOIW URINEIsolate 1 Escherichia coli 25,000 cfu/mL of ORGANISM 1 Escherichia coli ANTIBIOTIC M.I.C RX STATUS Ampicillin <=2 S F Ampicillin/Sulbactam <=2 S F Piperacillin/Tazobactam <=4 S F Cefazolin <=4 S F Ceftazidime <=1 S F Ceftriaxone <=1 S F Ertapenem <=0.5 S F Imipenem <=0.25 S F Amikacin <=2 S F Gentamicin <=1 S F Tobramycin <=1 S F Ciprofloxacin <=0.25 S F Levofloxacin <=0.12 S F Nitrofurantoin <=16 S F Trimethoprim/Sulfamethoxazole <=20 S FNormalThe [facility] HospitalComment on above:Performed By: #### URCX ####[facility] [address] [place], [place] [address]Dr. Yilan ChangCALCIUMon 08-00-7980Stcvdyh [Mass/Vol] 9.4 mg/dLNormal8.5-10.1[facility] Bryan Hospitalment on above:Performed By: #### LESLY CREVinny ####[facility] [address] [place], [place] [address]Dr. Yilan ChangCREATININEon 20-97-2299Eczphdjfnu [Mass/Vol]0.73 mg/dLNormal 0.55-1.02[facility] Memorial HospitalComcorewell health gerber hospital on above:Performed By: #### CA CREVinny ####[facility] [address] [place], [place] [address]Dr. Yilan ChangEGFR-AF ANDORRAN>60Normal>=60The [facility] HospitalComment on above: Performed By: #### CA, CREA ####[facility] Evicoatekl[address] [place], [place] [address]Dr. Yilan ChangEGFR-NON AF ANDORRAN>60Normal>=60The [facility] Hospitalment on above:Performed By: #### CATE GRACE ####[facility] [address] [address]Dr. Duong AlcarazPROF CHEM 8 (BAS METB)on 21-27-2170Lphgi gap [Moles/Vol]12.5 mmol/LNormalBrown Memorial HospitalComment on above:Performed By: #### BMP #### [facility] [address] [address] [address] Duong AlcarazCalcium [Mass/Vol]8.8 mg/dLNormal8.5-10.1The [facility] Comment on above:Performed By: #### BMP #### [facility] [address] [address] [address] Duong AlcarazChloride [Moles/Vol]95 mmol/LCritically kpb80-216HgsBrown Memorial HospitalComment on above:Performed By: #### BMP #### [facility] [address] [address] [address] Duong AlcarazCO2 [Moles/Vol]27.3 mmol/YXbtfti40.0-32.0[facility] Comment on above:Performed By: #### BMP #### [facility] [address] [address] [address] Duong AlcarazCreatinine [Mass/Vol]0.68 mg/dLNormal0.55-1.02The [facility] HospitalComment on above:Performed By: #### BMP #### [facility] [address] [address] [address] Duong ArzolaGFR-AF ANDORRAN>60Normal>=60The [facility] HospitalComment on above:Performed By: #### BMP #### [facility] [address] [address] [address] Duong ArzolaGFR-NON AF ANDORRAN>60Normal>=60The [facility] HospitalComment on above:Performed By: #### BMP #### [facility] [address] [address] [address] Duong AlcarazGlucose [Mass/Vol]98 mg/gZItqmvn20-305Pph [facility] Comment on above:Performed By: #### BMP #### [facility] [address] [address] [address] Duong AlcarazPotassium [Moles/Vol]3.8 mmol/LNormal3.5-5.1The [facility] Comment on above:Performed By: #### BMP #### [facility] [address] [address] [address] Duong AlcarazSodium [Moles/Vol]131 mmol/LCritically kwx795-228Frp [facility] HospitalComment on above:Performed By: #### BMP #### [facility] [address] [place] [address] Dr. Duong AlcarazUrea nitrogen [Mass/Vol]14.0 mg/dLNormal7.0-18.0The [facility] HospitalComment on above:Performed By: #### BMP #### [facility] [address] [place] [address] Dr. Duong AlcarazUrea nitrogen/Creatinine [Mass ratio]20.6 mg/mgNormalThe [facility] HospitalComment on above:Performed By: #### BMP #### [facility] [address] [place] [address] Dr. Duong Trotter 71-75-8944Dgsxjokmhna peptide B (Bld) [Mass/Vol]151.0 pg/mL Normal<=900.0The [facility] HospitalComment on above:Performed By: #### CMP, BNP #### [facility] [address] [place] [address] Dr. Duong Cook AUTO DIFFon 20-38-9191MGXX #0.1 103/ulNormal0.0-0.1The [facility] HospitalComment on above:Performed By: #### CBC ####[facility] [address] [address]Dr.Yilan AlcarazBasophils/100 WBC (Bld)1.3 %Normal0.2-2.0The [facility] HospitalComment on above:Performed By: #### CBC ####[facility] [address] [address]Dr.Yilan ChangEO #0.2 103/ulNormal0.0-0.7The [facility] HospitalComment on above:Performed By: #### CBC ####[facility] [address] [place], [place] [address]Dr.Duong ChangEosinophils/100 WBC (Bld)4.4 %Normal 0.9-7.0The [facility] HospitalComment on above:Performed By: #### CBC ####[facility] [address]lim[address] [place], [place] [address]Dr.Duong Alcaraz Erythrocyte distribution width (RBC) [Ratio]12.3 %Mbcrkc83.0-15.0The [facility] HospitalComment on above:Performed By: #### CBC ####[facility] [address] [place], [place] [address]Dr.Duong ChangHematocrit (Bld) [Volume fraction]36.4 %Xxapcv18.0-48.0The [facility] HospitalComment on above:Performed By: #### CBC ####[facility] [address] [place], [place] [address]Dr.Duong ChangHemoglobin (Bld) [Mass/Vol]12.8 g/dL Dcdpra67.0-16.0The [facility] HospitalComment on above:Performed By: #### CBC ####[facility] [address] [place], [place] [address]Dr. Duong ChangIG #0.02 10e3/ulNormal0.00-0.03The [facility] HospitalComment on above: Performed By: #### CBC ####[facility] [address] [place], [place] [address]Dr.Duong ChangIG %0.5 %Normal0.0-0.5The [facility] HospitalComment on above:Performed By: #### CBC ####[facility] [address] [place], [place] [address]Dr.uDong ChangLYMPH #0.8 103/ulCritically low1.2-3.8The [facility] HospitalComment on above:Performed By: #### CBC ####[facility] [address] [address]Dr.Duong AlcarazLymphocytes/100 WBC (Bld)19.5 %Critically low20.5-60.0The [facility] HospitalComment on above:Performed By: #### CBC ####[facility] [address] [address]Dr.Duong AlcarazMANUAL DIFF REQ NONormalThe [facility] HospitalComment on above:Performed By: #### CBC ####[facility] [address] [address]Dr. Duong AlcarazH (RBC) [Entitic mass]31.7 gsObbhxz55.7-34.0The [facility] Comment on above:Performed By: #### CBC ####[facility] [address] [place], [place] [address]Dr.Duong AlcarazMCHC (RBC) [Mass/Vol]35.2 g/dL Cycnmg55.9-35.2The [facility] HospitalComment on above:Performed By: #### CBC ####[facility] [address] [place], [place] [address]Dr. Duong AlcarazMCV (RBC) [Entitic vol]90.1 yUZubemv40.0-99.0The [facility] Comment on above:Performed By: #### CBC ####[facility] [address] [place], [place] [address]Dr.Duong AlcarazMONO #0.5 103/ulNormal0.3-0.8 The [facility] HospitalComment on above:Performed By: #### CBC ####[facility] [address] [place], [place] [address]Dr.Duong Alcaraz Monocytes/100 WBC (Bld)12.3 %Critically high1.7-12.0The [facility] HospitalComment on above:Performed By: #### CBC ####[facility] [address] [place], [place] [address]Dr.Duong KieranNEUT #2.4 103/ulNormal1.4-6.5The [facility] HospitalComment on above:Performed By: #### CBC ####[facility] [address] [address]Dr.Duong AlcarazNeutrophils/100 WBC (Bld)62.0 %Jwffln31.0-75.0The [facility] HospitalComment on above:Performed By: #### CBC ####[facility] [address] [address]Dr.Duong AlcarazPlatelet mean volume (Bld) [Entitic vol]7.8 fLCritically low 9.5-13.5The [facility] HospitalComment on above:Performed By: #### CBC ####[facility] [address] [address]Dr. Duong AlcarazPLT183 103/frFzgkoc709-862Qmq [facility] HospitalComment on above: Performed By: #### CBC ####[facility] [address] [address]Dr.Duong AlcarazRBC4.04 106/ulCritically low4.20-5.40The [facility] HospitalComment on above:Performed By: #### CBC ####[facility] [address] [address]Dr.Duong AlcarazWBC3.9 103/ul Critically low4.0-11.0The [facility] HospitalComment on above:Performed By: #### CBC ####[facility] [address] [address]Dr. Duong AlcarazPROF 14(COMP METB)on 43-48-2315Kekdvdi [Mass/Vol]3.4 g/dLNormal 3.4-5.0The [facility] HospitalComment on above:Performed By: #### CMP, BNP #### [facility] [address] [address] [address] Duong AlcarazAlbumin/Globulin [Mass ratio]0.9 {ratio}NormalThe [facility] Ontario Hospitalment on above:Performed By: #### CMP, BNP #### [facility] [address] [address] [address] Duong FarleyP [Catalytic activity/Vol]33 U/LCritically qgp18-173Nju [facility] HospitalComment on above:Performed By: #### CMP, BNP #### [facility] [address] [address] [address] Duong Pettit [Catalytic activity/Vol]21 U/BDfszzd80-62Wss [facility] HospitalComment on above:Performed By: #### CMP, BNP #### [facility] [address] [address] [address] Duong Nelsonon gap [Moles/Vol]8.0 mmol/LNormalThe [facility] HospitalComment on above:Performed By: #### CMP, BNP #### [facility] [address] [address] [address] Duong Enamorado [Catalytic activity/Vol]26 U/XGfhtqr05-34Kzt [facility] HospitalComment on above:Performed By: #### CMP, BNP #### [facility] [address] [place] [address] Dr. Duong AlcarazBilirubin [Mass/Vol]0.6 mg/dLNormal0.2-1.0[facility] Comment on above:Performed By: #### CMP, BNP #### [facility] [address] [place] [address] Dr. Duong AlcarazCalcium [Mass/Vol]8.8 mg/dLNormal8.5-10.1[facility] Comment on above:Performed By: #### CMP, BNP #### [facility] [address] [place] [address] Dr. Duong AlcarazChloride [Moles/Vol]98 mmol/WXqtnpn99-551Dxh [facility] Comment on above:Performed By: #### CMP, BNP #### [facility] [address] [place] [address] Dr. Duong AlcarazCO2 [Moles/Vol]29.7 mmol/RCqvrfi69.0-32.0The [facility] Comment on above:Performed By: #### CMP, BNP #### [facility] [address] [place] [address] Dr. Duong AlcarazCreatinine [Mass/Vol]0.71 mg/dLNormal0.55-1.02The [facility] HospitalComment on above:Performed By: #### CMP, BNP #### [facility] [address] [place] [address] Dr. Duong ArzolaGFR-AF ANDORRAN>60Normal>=60The [facility] HospitalComment on above:Performed By: #### CMP, BNP #### [facility] [address] [place] [address] Dr. Duong ArzolaGFR-NON AF ANDORRAN>60Normal>=60The [facility] HospitalComment on above:Performed By: #### CMP, BNP #### [facility] [address] [place] [address] Dr. Duong AlcarazGlobulin (S) [Mass/Vol]3.8 g/dLNormalThe [facility] HospitalComment on above:Performed By: #### CMP, BNP #### [facility] [address] [place] [address] Dr. Duong AlcarazGlucose [Mass/Vol]94 mg/cFQqndgb68-559Wqe [facility] Comment on above:Performed By: #### CMP, BNP #### [facility] [address] [place] [address] Dr. Duong AlcarazPotassium [Moles/Vol]3.7 mmol/LNormal3.5-5.1The [facility] Comment on above:Performed By: #### CMP, BNP #### [facility] [address] [place] [address] Dr. Duong AlcarazProtein [Mass/Vol]7.2 g/dLNormal6.4-8.2The [facility] Comment on above:Performed By: #### CMP, BNP #### [facility] [address] [place] [address] Dr. Duong AlcarazSodium [Moles/Vol]132 mmol/LCritically gmy367-389Fcw [facility] HospitalComment on above:Performed By: #### CMP, BNP #### [facility] [address] [place] [address] Dr. Yilan ChangUrea nitrogen [Mass/Vol]14.0 mg/dLNormal7.0-18.0[facility] HospitalComment on above:Performed By: #### CMP, BNP #### [facility] [address] [place], [place] [address] Dr. Duong Ruggiero nitrogen/Creatinine [Mass ratio]19.7 mg/mgNormalThe [facility] HospitalComment on above:Performed By: #### CMP, BNP #### [facility] [address] [place], [place] [address] Dr. Watters ChangECHOCARDIO M/2D COMPLETEon [id number] M/2D COMPLETE Patient: GLENIS PEREZ Exam Date: 11/03/2021 : 1950 Gender:F Ordering : PARUL FITZPATRICK Admission #: [id number] Family : DR JESSE MARIANO . Order #: [id number] CLICK HERE TO VIEW EXAM ECHOCARDIOGRAM REPORT [...] by: Federico Riley M.D. on 11/03/2021 at 21:34[facility] HospitalBNPon 06-35-6915Shhorlasfpg peptide B (Bld) [Mass/Vol]200.0 pg/mLNormal <=900.0The [facility] HospitalComment on above:Performed By: #### BNP, TSH, LIPID, CMP, T7 ####[facility] [address] [address]Dr. Duong Cook AUTO DIFFon 75-87-7715CJQI #0.1 103/ulNormal0.0-0.1The [facility] HospitalComment on above:Performed By: #### CBC #### [facility] [address] [address] [address] Duong Gonzalesphils/100 WBC (Bld)1.2 %Normal0.2-2.0[facility] Comment on above:Performed By: #### CBC #### [facility] [address] [address] [address] Duong Luna #0.1 103/ulNormal0.0-0.7The [facility] HospitalComment on above: Performed By: #### CBC #### [facility] [address] [place] [address] Dr. Duong Arzolaosinophils/100 WBC (Bld)2.8 %Normal0.9-7.0The [facility] Comment on above:Performed By: #### CBC #### [facility] [address] [place] [address] Dr. Duong Arzolarythrocyte distribution width (RBC) [Ratio]12.2 %Zfpdee02.0-15.0 The [facility] HospitalComment on above:Performed By: #### CBC #### [facility] [address] [place] [address] Dr. Duong AlcarazHematocrit (Bld) [Volume fraction]37.0 %Shuijz03.0-48.0The [facility] HospitalComment on above:Performed By: #### CBC #### [facility] [address] [place] [address] Dr. Duong AlcarazHemoglobin (Bld) [Mass/Vol]12.6 g/jPKtwnnj28.0-16.0The [facility] HospitalComment on above:Performed By: #### CBC #### [facility] [address] [place] [address] Dr. Duong Campbell #0.03 10e3/ulNormal0.00-0.03The [facility] HospitalComment on above:Performed By: #### CBC #### [facility] [address] [place] [address] Dr. Duong Campbell %0.7 %Critically high0.0-0.5The [facility] HospitalComment on above:Performed By: #### CBC #### [facility] [address] [place] [address] Dr. Duong Obregon #0.7 103/ulCritically low1.2-3.8The [facility] Comment on above:Performed By: #### CBC #### [facility] [address] [place] [address] Dr. Duong Valentinemphocytes/100 WBC (Bld)16.0 %Critically low20.5-60.0The [facility] HospitalComment on above:Performed By: #### CBC #### [facility] [address] [place] [address] Dr. Duong Byrne DIFF REQNONormalThe [facility] HospitalComment on above: Performed By: #### CBC #### [facility] [address] [place] [address] Dr. Duong Frey (RBC) [Entitic mass]31.4 rgPugyin89.7-34.0The [facility] HospitalComment on above:Performed By: #### CBC #### [facility] [address] [place] [address] Dr. Duong Frey (RBC) [Mass/Vol]34.1 g/hBWpmugi89.9-35.2The [facility] HospitalComment on above:Performed By: #### CBC #### [facility] [address] [place] [address] Dr. Duong Ansari (RBC) [Entitic vol]92.3 tGNspuiv09.0-99.0The [facility] HospitalComment on above:Performed By: #### CBC #### [facility] [address] [place] [address] Dr. Duong [place] #0.5 103/ulNormal0.3-0.8The [facility] HospitalComment on above:Performed By: #### CBC #### [facility] [address] [place] [address] Dr. Duong Marcumocytes/100 WBC (Bld)11.5 %Normal1.7-12.0The [facility] Comment on above:Performed By: #### CBC #### [facility] [address] [place] [address] Dr. Duong Mojica #2.9 103/ulNormal1.4-6.5The [facility] HospitalComment on above:Performed By: #### CBC #### [facility] [address] [place], [place] [address] Dr. Duong Julianutrophils/100 WBC (Bld)67.8 %Yktqwy95.0-75.0The [facility] HospitalComment on above:Performed By: #### CBC #### [facility] [address] [place] [address] Dr. Duong Burden mean volume (Bld) [Entitic vol]8.2 fLCritically low 9.5-13.5The [facility] HospitalComment on above:Performed By: #### CBC #### [facility] [address] [place] [address] Dr. Duong AlcarazPLT191 103/ysJqkhsx473-520Tln [facility] HospitalComcorewell health ger[facility] on above: Performed By: #### CBC #### [facility] [address] [place] [address] Dr. Duong AlcarazRBC4.01 106/ulCritically low4.20-5.40The [facility] on above:Performed By: #### CBC #### [facility] [address] [place] [address] Dr. Duong AlcarazWBC4.3 103/ulNormal4.0-11.0The [facility] HospitalComment on above: Performed By: #### CBC #### [facility] [address] [place] [address] Dr. Duong Cespedes THYROXINE INDEX T7on 65-87-0910CBL4.82Czcnix5.30-4.50The [facility] on above:Performed By: #### BNP, TSH, LIPID, CMP, T7 ####[facility] [address] [address]Dr. Duong AlcarazT3U35.0 %Jofxpt52.0-39.0The [facility] HospitalComment on above: Performed By: #### BNP, TSH, LIPID, CMP, T7 ####[facility] [address] [address]Dr. Duong AlcarazT4 [Mass/Vol]8.60 ug/dLNormal 4.80-13.90The [facility]i HospitalComment on above:Performed By: #### BNP, TSH, LIPID, CMP, T7 ####[facility] [address] [address]Dr. Duong AlcarazGLYCOHEMOGLOBIN A1Con 76-82-5076MFL RECOMMENDATIONSEE [facility] Hospital - YoungstownComment on above:Result Comment: ADA RECOMMENDED LIMIT 4.0 - 6.0 ADA THERAPEUTIC TARGET < 7.0 ACTION SUGGESTED > 7.0Performed By: #### A1C #### [facility] [address] [address] [address] Duong AlcarazGlucose [Mass/Vol]108 mg/dLNoNewark HospitalComment on above:Performed By: #### A1C #### [facility] [address] [address] [address] Duong AlcarazHbA1c (Bld) [Mass fraction]5.4 %Normal4.5-6.2The [facility] HospitalComment on above:Performed By: #### A1C #### [facility] [address] [address] [address] Duong Paige 07-84-0060Xbic [Mass/Vol]93.0 ug/aVQoinih39.0-170.0The [facility] HospitalComment on above:Performed By: #### IRON ####[facility] [address] [address]DrClovis AlcarazLIPID PROFILE on 46-90-2531BYRJ-HDL RATIO NORMSEE [facility] - YoungstownComment on above:Result Comment: 3.3 - 4.4 LOW RISK 4.4 - 7.1 AVERAGE RISK 7.1 - 11.0 MODERATE RISK >11.0 HIGH RISKPerformed By: #### BNP, TSH, LIPID, CMP, T7 ####[facility] [address] [address]Dr. Duong AlcarazCholesterol [Mass/Vol]182 mg/dLNormal<=200The [facility] Comment on above:Performed By: #### BNP, TSH, LIPID, CMP, T7 ####[facility] [address] [address]DrClovis Duong Alcaraz Cholesterol in HDL [Mass/Vol]69 mg/dLCritically tupr03-14ZncBrown Memorial Hospital Comment on above:Performed By: #### BNP, TSH, LIPID, CMP, T7 ####[facility] [address] [address]Dr. Duong Alcaraz Cholesterol in LDL [Mass/Vol]107.6 mg/dLNoNewark HospitalComment on above:Performed By: #### BNP, TSH, LIPID, CMP, T7 ####[facility] [address] [address]Dr. Duong Alcaraz Cholesterol.total/Cholesterol in HDL [Mass ratio]2.6 {ratio}NormalBrown Memorial HospitalComment on above:Performed By: #### BNP, TSH, LIPID, CMP, T7 ####[facility] [address] [address]Dr. Duong KieranHDL NORMAL> or = 60 mg/dl - LOW CARDIOVASCULAR RISK <40 mg/dl - HIGH CARDIOVASCULAR RISKNoNewark HospitalComment on above:Performed By: #### BNP, TSH, LIPID, CMP, T7 ####[facility] [address] [address]Dr. Duong AlcarazLDL CALC NORMALSEE BELOWSt. Elizabeth HospitalComment on above:Result Comment: <100 mg/dl OPTIMAL 100 - 129 mg/dl NEAR OR ABOVE OPTIMAL 130 - 159 mg/dl BORDERLINE HIGH 160 - 189 mg/dl HIGH >190 mg/dl VERY HIGHPerformed By: #### BNP, TSH, LIPID, CMP, T7 ####[facility] [address] [address]Dr. Duong Alcaraz Triglyceride [Mass/Vol]27 mg/dLNormal<=150[facility] HospitalComment on above: Performed By: #### BNP, TSH, LIPID, CMP, T7 ####[facility] [address] [address]Dr. Duong AlcarazVLDL CALC5.4 mg/dLNoNewark HospitalComment on above:Performed By: #### BNP, TSH, LIPID, CMP, T7 ####[facility] [address] [place], [place] [address]KvDr. Duong CortezF 14(COMP METB)on 18-71-4579Fvvvrzf [Mass/Vol]3.5 g/dLNormal 3.4-5.0The [facility] HospitalComment on above:Performed By: #### BNP, TSH, LIPID, CMP, T7 #### [facility] [address] [address] [address] Duong AlcarazAlbumin/Globulin [Mass ratio]1.0 {ratio}NormalThe [facility] HospitalComment on above:Performed By: #### BNP, TSH, LIPID, CMP, T7 #### [facility] [address] [place] [address] Dr. Duong Decker [Catalytic activity/Vol]34 U/LCritically gqm54-415Wdr [facility] HospitalComment on above:Performed By: #### BNP, TSH, LIPID, CMP, T7 #### [facility] [address] [place] [address] Dr. Duong Pettit [Catalytic activity/Vol]22 U/HGacqjl08-84Txn [facility] HospitalComment on above:Performed By: #### BNP, TSH, LIPID, CMP, T7 #### [facility] [address] [place] [address] Dr. Duong Coombs gap [Moles/Vol]12.3 mmol/LNormalThe [facility] Comment on above:Performed By: #### BNP, TSH, LIPID, CMP, T7 #### [facility] [address] [place] [address] Dr. Duong Enamorado [Catalytic activity/Vol]19 U/NVmzewf20-77Lhd [facility] HospitalComment on above:Performed By: #### BNP, TSH, LIPID, CMP, T7 #### [facility] [address] [place] [address] Dr. Duong AlcarazBilirubin [Mass/Vol]0.6 mg/dLNormal0.2-1.0The [facility] Comment on above:Performed By: #### BNP, TSH, LIPID, CMP, T7 #### [facility] [address] [address] [address] Duong AlcarazCalcium [Mass/Vol]8.5 mg/dLNormal8.5-10.1The [facility] Comment on above:Performed By: #### BNP, TSH, LIPID, CMP, T7 #### [facility] [address] [place] [address] Dr. Duong AlcarazChloride [Moles/Vol]101 mmol/BMeiyhh55-779Huu [facility] Comment on above:Performed By: #### BNP, TSH, LIPID, CMP, T7 #### [facility] [address] [place] [address] Dr. Duong AlcarazCO2 [Moles/Vol]25.3 mmol/QDqqcfr81.0-32.0[facility] Comment on above:Performed By: #### BNP, TSH, LIPID, CMP, T7 #### [facility] [address] [place] [address] Dr. Duong AlcarazCreatinine [Mass/Vol]0.64 mg/dLNormal0.55-1.02[facility] HospitalComment on above:Performed By: #### BNP, TSH, LIPID, CMP, T7 #### [facility] [address] [place] [address] Dr. Duong ArzolaGFR-AF ANDORRAN>60Normal>=60[facility] HospitalComment on above:Performed By: #### BNP, TSH, LIPID, CMP, T7 #### [facility] [address] [place] [address] Dr. Duong ArzolaGFR-NON AF ANDORRAN>60Normal>=60[facility] HospitalComment on above:Performed By: #### BNP, TSH, LIPID, CMP, T7 #### [facility] [address] [place] [address] Dr. Duong AlcarazGlobulin (S) [Mass/Vol]3.4 g/dLNormalThe [facility] HospitalComment on above:Performed By: #### BNP, TSH, LIPID, CMP, T7 #### [facility] [address] [place] [address] Dr. Duong AlcarazGlucose [Mass/Vol]91 mg/sEFnnjnu64-533Qxs [facility] Comment on above:Performed By: #### BNP, TSH, LIPID, CMP, T7 #### [facility] [address] [address] [address] Duong AlcarazPotassium [Moles/Vol]4.6 mmol/LNormal3.5-5.1[facility] Comment on above:Performed By: #### BNP, TSH, LIPID, CMP, T7 #### [facility] [address] [address] [address] Duong AlcarazProtein [Mass/Vol]6.9 g/dLNormal6.4-8.2[facility] Comment on above:Performed By: #### BNP, TSH, LIPID, CMP, T7 #### [facility] [address] [place] [address] Dr. Duong AlcarazSodium [Moles/Vol]134 mmol/LCritically qbm311-612Fjb [facility] HospitalComment on above:Performed By: #### BNP, TSH, LIPID, CMP, T7 #### [facility] [address] [address] [address] Duong AlcarazUrea nitrogen [Mass/Vol]11.0 mg/dLNormal7.0-18.0[facility] HospitalComment on above:Performed By: #### BNP, TSH, LIPID, CMP, T7 #### [facility] [address] [address] [address] Duong Ruggiero nitrogen/Creatinine [Mass ratio]17.2 mg/mgNormalThe [facility] HospitalComment on above:Performed By: #### BNP, TSH, LIPID, CMP, T7 #### [facility] [address] [address] [address] Duong Ca 15-99-4012ZGD5.568 uIU/mLNormal0.358-3.740[facility] Memorial HospitalComment on above:Performed By: #### BNP, TSH, LIPID, CMP, T7 ####[facility] [address] [address]Dr. Duong AlcarazTSH RANGESEE [facility] Hospital - YoungstownComment on above:Result Comment: <0.34 UIU/ml HYPERTHYROID 0.34-5.60 UIU/ml EUTHYROID >5.60 UIU/ml HYPOTHYROIDPerformed By: #### BNP, TSH, LIPID, CMP, T7 ####[facility] [address] [place], [place] [address]Uv. Duong AlcarazMG MAMM SCREEN 3D ALONSO CADon 97-97-2704KO MAMM SCREEN 3D ALONSO CADPatient: GLENIS PEREZ Exam Date: 09/15/2021 : 1950 Gender:F Ordering : DR JESSE MARIANO . Admission #: [id number] Family : Order #: [id number] CLICK HERE TO VIEW EXAM RADIOLOGY REPORT [...] Treatments None Family Cancers None LOCATION: [facility] BREAST COMPOSITION: Heterogeneously dense,which may [...] PALPABLE LUMP SHOULD BE BIOPSIED. Dictated by: Yon Madison M.D. on 09/15/2021 at 12:00 Approved by: Yon Madison M.D. on 09/15/2021 at 15:08[facility] HospitalXR DEXA BONE DENSITYon 44-57-1424YQ DEXA BONE DENSITYEXAMINATION: XR DEXA BONE DENSITY, 09/15/2021 8:24 AM [...] - Moderate Fracture Risk Electronically authenticated by: YON MADISON Date: 2021-09-15 08:[address] [place], [place] [address]Cardiovascular Lab Reporton 42-26-7300Hnjxhhckykvhyi Lab Report [facility] Patient Name: Chris [facility] MR #: [id number] Physician: Christian Velez, Department of M.D. Medicine Service Date: 11/11/2020 Division of Birthdate: 1950 Cardiology Room #: [facility] Services [address] [place] [address] Cardiovascular Laboratory Report CLINICAL PRESENTATION: The patient [...] left radial artery. Using ultrasound guidance, a 6-Greenlandic Terumo Glidesheath slender was placed in the left radial artery. The radial anti-vasospasm cocktail of nitroglycerin 200 mcg and verapamil 2.5 mg was administered through the sheath. All catheter exchanges were made over the Magic Torque guidewire. A 5-Greenlandic JR4 used to engage the right coronary artery. A 5-Greenlandic JL4 used to engage the left main [...] and MEENU are patent. Electronically Signed by: Christian Velez M.D. 11/17/2020 11:30 A Christian Velez M.D. Date Dict: 11/11/2020/12:52 P/Christian Velez M.D. Date Trans: 11/12/2020 05:34 A/viri DN_JN:[id number] cc: Siddharth Nolasco MD Dept Of Cardiology [address] [facility] [address] [address] M[address] [address] Parul Fitzpatrick, OIL DISPENSER [address] [address] [facility] [address]XkirecQvjUC Medical CenterFormson 08-26-2020 [id number]#1.00CD:[address] [place], [place] [address]Physician Referralon 72-78-9944Daubcvjqb Referral [id number]#1.00CD:127[facility]'s Medical CenterAmbulatory Clinical Summaryon 46-86-1928Exaxzyerjc Clinical Summary {d5-j9-7n-05-l3-07-4x-7b-37-k1-69-r5-b9-ea-46-34}CD:[id number] Children's Medical CenterPatient Educationon 44-81-0033Vnaqzpy EducationUrinary Tract Infection Urinary tract infections (UTIs) can [...] your symptoms. Your caregiver also will ask toprovide a urine sample. The urine sample will [...] exactly as your caregiver instructs you. Finish themedication even if you feel better after you [...] Document Reviewed: 05/18/2012 ExitCare? 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 Requested stent placement to aid in dissection [...] obtained. Review of the urinalysis shows trace amountof blood 2+ leukocytes and positive nitrite. She [...] benefits, details, and treatment alternatives have been discussed.These include the need for additional procedures, bleeding, infection, injury to the ureter, moderate to severe bladder irritation from the stent (with frequent urination, urgency, urinary leakage), moderate flank discomfort, among others. Stent removal or changes may also be required in the future. Full informed consent has been obtained. Will order General anesthesia. Ordered: Urnls Dip Stick Auto w/o Microscopy POC 10305 Urology Procedure Order 2. UTI (urinary tract infection) (N39.0: Urinary tract infection, site not specified) UA today appears to be infected with positive nitrate. Will start pt. on Cipro 500mg bid, #6. Script sent to [facility] in [place]. Ordered: Urology Procedure Order 3. Microscopic hematuria (R31.29: Other microscopic hematuria) UA today - trace intact. Ordered: Urology Procedure Order Orders: ciprofloxacin, 500 mg = 1 tab(s), Oral, q12hr, X 3 day(s), # 6 tab(s), Refills(s) 0, Pharmacy: [facility] 1155, 160, cm, 08/25/20 11:31:00 EDT, Height/Length Dosing, 75.6, kg, 08/25/20 11:31:00 EDT, Weight Dosing I have reviewed the previous health record information and history for this pt. from Dr. Gonzalez. Follow-up With When Contact Information Carlos Alvarado MD, Dallin Malik, URO [address] [place] [id number]- Additional Instructions: Patient Education Urinary Tract Infection INegra (more content not included)...[facility] Comment on above:Result Comment: Electronically Signed By: Dallin Gonzalez Jr., MD\.br\Date and Time Signed: 08/25/2112:08 EDT\.br\Electronically Co-Signed By: Negra Mccullough MA\.br\Date and Time Co-Signed: 08/25/20 11:50 EDT Vital Signs Date TimeVital SignValuePerforming MzmrbsupwGvcggfdw57-60-1727 15:00-0500 Diastolic blood scoazedd57 mm[Hg]Chantelle Day DO Work Phone: bon ADP02-10-2025 15:00-0500Heart rate50 /minChantelle Day DO Work Phone: bon ADP02-10-2025 15:00-0500 Respiratory rate14 /minChantelle Day DO Work Phone: bon ADP02-10-2025 15:00-1214IeC1% (BldA) [Mass fraction]98 %Chantelle Day DO Work Phone: Bon [facility] HospitalSadra MedicalQtzhlm16-81-2843 15:00-0500Systolic blood tolbyyeh876 mm[Hg]Chantelle Day DO Work Phone: Bon [facility] Hospitalachvr Yhtvtt87-99-6755 12:53-0500Body wrvoguinuco42.2 [degF]Chantelle Day DO Work Phone: [phone] [facility] HospitalSadra MedicalQqlayi77-80-1879 09:46-0500Body rmdimm188 cmAndrachel Day DO Work Phone: [phone] Medical Centerachvr Wnuonu17-90-4913 09:46-0500Body mass index (BMI) [Ratio]29.94 kg/u4WdiabyChantelle Day DO Work Phone: Bon [facility] Hospitalachvr Qvwgik07-17-3425 09:46-0500Body qaesdm77.66 kgChantelle Day DO Work Phone: [facility]11-27-2024 11:16-0500Body ygfgtm636 cmErnie Andrzej DO Work Phone: [address] [place] [address]Xgpnhubpfp57-48-1084 11:16-0500Body mass index (BMI) [Ratio]29.23 kg/l8Pkodwx Andrzej DO Work Phone: [address] [place] [address]Ldoqcmjflv50-86-9846 11:16-0500Body latcxx66.84 kgNicole Andrzej DO Work Phone: [address] [place] [address]Vfsomfxsup10-20-5493 11:16-0500Diastolic blood vvofvbjf11 mm[Hg]Ernie Andrzej DO Work Phone: [place] [address]Cnbybrurcq51-82-4553 11:16-0500Heart wphq302 /min Ernie Andrzej DO Work Phone: [address] [place] [phone] 11:16-1363NeD3% (BldA) [Mass fraction]98 %Ernie Andrzej DO Work Phone: [address] [place] [address]Fsdnanhjvu62-87-0921 11:16-0500Systolic blood nhrtirxw654 mm[Hg]Ernie Andrzej DO Work Phone: noMetropolitan [facility] Psychiatric CenterOqxarqnqco02-92-8776 10:15-0500Body zmdhje313.29 cmJustin Elma Other [employer] Other 08-07-2023 11:00-0400Body abwnft225.29 cmJustin Elma Other [employer] Other 08-07-2023 11:00-0400Body mass index (BMI) [Ratio] 27.55 kg/t9Cwsijd Elma Other [employer] Other 08-07-2023 11:00-0400Body .67 kgJustin Elma Other [employer] Other 06-07-2023 13:15-0400Body lwoayb605.29 cmJustin Elma Other [employer] Other 06-07-2023 13:15-0400Body mass index (BMI) [Ratio]27.9 kg/m4Xlukwz Elma Other [employer] Other 06-07-2023 13:15-0400Body firsik45.58 kgJustin Elma Other [employer] Other 12-30-2022 16:30-0500Body zetcqe626.29 cmA[address] Other [employer] Other 12-30-2022 16:30-0500Body mass index (BMI) [Ratio] 27.02 kg/j7Gszre Rafael Other [employer] Other 12-30-2022 16:30-0500Body uqmqttujann43.4 [degF]Linda Rafael Other [facility] [employer] Other 12-30-2022 16:30-0500Body jeukpj61.31 kgLinda [address] Other [facility] [employer] Other 12-30-2022 16:30-0500Respiratory rate18 /minLinda Hall Other [facility] [employer] Other 12-30-2022 16:30-8841RkJ6% (BldA) [Mass fraction]98 % Linda Hall Other [facility] [employer] Other Encounters Encounter DateEncounter TypeCare ProviderFacilityStart: 15-62-3613guwvgjcojr [facility]ANTELLE [facility] 12-19-2024 End: 36-43-2223rtlvxqyzglJCNMHSVSFRM [facility] Start: 12-11-2024 End: 54-88-2785pljbebsawtPARYPE [facility] [address] Hospitalt[facility]: 12-11-2024 End: 08-54-7134Ggoyniuhkt hospital visit by Cori Day DO Work Phone: [facility] TherapyStart: 12-04-2024 End: 91-22-1867oymoyipuyyXGLFIT J [facility]: 12-04-2024 End: 14-61-8084Gvaofzxbno hospital visit by Cori Day DO Work Phone: [facility] TherapyStart: 11-27-2024 End: 15-81-3821pnfduhoovmQKMZLL J [facility] Hospitalt[facility]: 11-27-2024 End: 24-62-3145Ugoykmzfkr hospital visit by Cori Day DO Work Phone: [facility] TherapyStart: 06-11-2024 End: 91-41-4445eruipjnsvkMRQW NICHOLSWVUMedicine [facility]ville Hospitaltart: 06-11-2024 End: 63-38-0280Haupgvqcpc hospital visit by Belen Mariano MD Work Phone: stvz CO LAB DOCTORComment on above:Abnormal urine Start: 06-03-2024 End: 42-50-5064pkbghqupvrVQNXTZ J CROAKWVUMedicine Barnesville Hospitaltart: 06-03-2024 End: 39-90-6922Vmadzdfiia hospital visit by Cori Day DO Work Phone: mhPB [place] ORComment on above:Post-op pain (Primary Dx); Vaginal vault prolapse; Midline cystocele; Unspecified urinary incontinence; Urethral sphincter deficiency, intrinsic (ISD)Start: 03-20-2024 End: 78-27-9005Usqdtq flowsheetNicole Andrzej DO Work Phone: [facility] R[facility]TEStart: 03-20-2024 End: 38-74-2622Hwgfwo flowsheetNicole Andrzej DO Work Phone: [facility]TEStart: 03-20-2024 End: 85-63-1382Ibftxp outpatient visit 25 minutesNicole Andrzej DO Work Phone: noms [facility] STATE ROUTEComment on above:RICK (obstructive sleep apnea) (Primary Dx); Hypersomnia; SnoringStart: 03-20-2024 End: 50-82-1731ycjuxxanprDHNKEE DANNERNot AvailableStart: 01-08-2024 End: 82-80-6113alaoqbntgvCWXUNXF [facility] Hospitaltart: 11-22-2023 End: 52-45-9170dzjyvbotfgNBWWJDQK E RINKESNot AvailableStart: 07-13-2023 End: 84-83-0214rztkpjjzqxJLFUPGWV E RINKESNot AvailableStart: 04-04-2023 End: 37-47-3614ydmtkqpstdKVRBFGHR E RINKESNot AvailableStart: 98-56-4030Coeyyz outpatient visit 15 minutesJustin BenedictleyFPG [facility] OrthopedicsStart: 02-27-2023 End: 06-84-3077umpetjabgdFwoxal A [facility] [employer] Other Start: 01-18-2023 End: 98-29-6905wdezdihnrfDubcnu Elma Other [employer] Other Start: 54-90-3426Tolaiknef encounterJustin KelleyFPG [facility] OrthopedicsStart: 12-28-2022 End: 81-81-0439yxszqxqpenUvanhk Elma Other [employer] Other Start: 23-50-7690Ktcllagqa encounterJustin KelleyFPG [facility] OrthopedicsStart: 11-28-2022 End: 80-36-5246qpofkdttntJtfzcl Elma Other [employer] Other Start: 15-33-9755Uizdro follow up visit related to original pxJustin KelleyFPG [facility] OrthopedicsStart: 09-28-2022 End: 13-18-8156wzhotungrnNfukaa Elma Other [employer] Other Start: 58-43-9329Eexmeu follow up visit related to original pxJustin KelleyFPG [facility] OrthopedicsStart: 09-23-2022 End: 91-29-8899prcxuebxgqKzytne Elma Other [employer] Other Start: 66-59-8576Zzlrqsdhl encounterJustin KelleyFPG [facility] OrthopedicsStart: 09-13-2022 End: 66-97-8007azqbistyxlQmmqyhw M HoyFacility: Start: 08-24-2022 End: 96-59-5900efddkevrvuYazytp A KelleyFacility:[facility]tart: 08-19-2022 End: 18-55-9047uydlwyxctyHN JESSE HOY .Facility:E2Hydfp: 08-12-2022 End: 72-98-5543ahflkevlpoCxqxff A KelleyFacility:[facility] Hospitaltart: 07-04-2022 End: 68-12-9522ztcnaxlsddMV JESSE HOY .Facility:G2Twqbx: 06-22-2022 End: 08-10-3459fhrbkjzwhwZF JESSE HOY .Facility:K1Xlszw: 04-22-2022 End: 09-59-6892tzvwmmgwkbWlaxy Keller Other [employer] Other Start: 53-56-8038Trpdvn outpatient [facility] 30 minutesAmber PamelaG Urgent Care ClydeStart: 04-11-2022 End: 09-50-1540sbuupytqvrGZ LEXIE BARBOSA .Facility:Y0Zkeej: 04-01-2022 End: 94-20-7236dhmrgdxeifLH JESSE HOY .Facility:H2Rzfik: 02-02-2022 End: 30-40-5326ouxhgurpaeRC JESSE HOY .Facility:R2Qfhwr: 11-22-2021 End: 96-41-4181qcruiqexbwWL JESSE HOY .Facility:U5Pwvss: 11-12-2021 End: 31-76-8078nmnddroktgCI JESSE HOY .Facility:G7Xsmje: 11-03-2021 End: 75-15-4150kzixzcmdcbWKPNIQY EDERFacility:N6Exnje: 10-08-2021 End: 49-16-1005lvtrpkistdSZ JESSE HOY .Facility:U2Tqsuj: 10-04-2021 End: 59-76-7700pjbpkwtwdqUP JESSE HOY .Facility:F3Yyaiy: 09-15-2021 End: 24-44-4709erxkyevitsVS JESSE HOY .Facility:F7Vjisl: 11-11-2020 End: 84-11-8963dvdvwcawsrXMORNV [facility] HOSPITALFacility:[facility] Plan of Treatment DateCare ActivityDetailAuthorStart: 04-01-2025 End: 71-30-7469Xutqepj encounter procedureSamaritan Hospital Pelvic Floor Rehabilitation and TherapyComment on above:Medicare- 20% co-ins, $257 ded/met, no co-pay. Follow Medicare guidelines. [employer]- covers the 20% left by Medicare. Follow Medicare guidelines.Follow up after PFTStart: 12-11-2024 End: 51-97-9574Alazrqq encounter nahjppofv66/20/2025 10:00 AM EDT Appointment [facility] [address], [address] [place] [address] Chantelle Day, DO [address] [place] [address] Cassie Llanos, RANGE CONSERVATIONIST [address] [place] [address] Medicare- 20% co-ins, $257 ded/met, no co-pay. Follow Medicare guidelines. [employer]- covers the 20% left by Medicare. Follow Medicare guidelines.[facility] Rehabilitation and TherapyComment on above:Medicare- 20% co-ins, $257 ded/met, no co-pay. Follow Medicare guidelines. [employer]- covers the 20% left by Medicare. Follow Medicare guidelines.Start: 12-04-2024 End: 16-93-9314Iuerxpo encounter bddfmchyy52/13/2025 10:00 AM EDT Appointment [facility] [address], [address] [place] [address] Chantelle Day, DO [address] [place] [address] Tasha Cedeno, PT [address] [facility] [address] [place] [address] Medicare- 20% co-ins, $257 ded/met, no co-pay. Follow Medicare guidelines. [employer]- covers the 20% left by Medicare. Follow Medicare guidelines.[facility] Rehabilitation and TherapyComment on above:Medicare- 20% co-ins, $257 ded/met, no co-pay. Follow Medicare guidelines. [employer]- covers the 20% left by Medicare. Follow Medicare guidelines.Start: 46-13-8034Lyptdjeqh vaccinationFlu vaccine (#1)[facility] HospitalStart: 54-06-6741HKBSM-19 Vaccine ()COVID- 19 Vaccine ()[facility]art: 07-10-2024 End: 17-39-9160Qvdhmuh encounter fauypiqjj34/19/2025 10:30 AM EDT Office Visit [facility] [address] [place] [address] Debby Wagner, STATEMENT SERVICES REPRESENTATIVE - OIL DISPENSER [address] [facility] [address] [place] [address] [facility] Urogynecology and Pelvic RehabilitationComment on above:6 WK POStart: 06-17-2024 End: 80-00-9292Juhubuc encounter acwxuenun22/24/2025 10:45 AM EST Office Visit [facility] [address] [place] [address] [address] [place] [address] Monse Beltran, STATEMENT SERVICES REPRESENTATIVE - OIL DISPENSER [address] [facility] [address] [place] [address] check [facility] Comment on above:check PVRStart: 06-11-2024 End: 13-97-0401Djpbncz encounter mtrpizaua70/18/2025 11:30 AM EST Office Visit [facility] [address] [facility] [facility] [address] [facility] [address] [place] [address] Debby Wagner APRN - MICHELE [address] [facility] [address] [place] [address] [facility] Urogynecology and Pelvic RehabilitationComment on above:1 WK POStart: 06-03-2024 End: 22-61-0511Hodicnco colporraphy rpr cystocele w/cystoVAGINAL ANTERIOR REPAIR Vaginal vault prolapse Midline cystocele Unspecified urinary incontinence Ur ethral sphincter deficiency, intrinsic (ISD) 06/03/2024 11:45 AM [employer] [facility]: 06-03-2024 End: 19-17-0136Xscb njx implt matrl urt&/bldr nckCYSTOSCOPY INJECTION Vaginal vault prolapse Midline cystocele Unspecified urinary incontinence Urethral sphincter deficiency, intrinsic (ISD) 06/03/2024 11:45 AM [employer] [facility]: 03-20-2024 End: 53-82-1880Sizowsz encounter /27/2024 11:15 AM EST Office Visit [facility] [address] [place] [address] Ernie Donnelly, DO [address] [place], [place] [id number] ArrivedMERCY HOSPITAL ROUTEComment on above: ArrivedStart: 33-64-2920Uzerwp Wellness Visit (Medicare)Annual Wellness Visit (Medicare)[facility] HospitalStspencer: 63-81-1800BGZVO-19 Vaccine ( season)COVID-19 Vaccine ( season)[facility] HospitalStart: 81-97-9902Zmjxjyzni vaccinationInfluenza Vaccine (#1)[facility]ansonStart: 31-88-5282Sltyhazpv vaccinationFlu vaccine (#1)[facility]: 20-15-5605Ulriowmasom Syncytial Virus (RSV) or age 60 yrs+ (1 - 1-dose 75+ series)Respiratory Syncytial Virus (RSV) or age 60 yrs+ (1 - 1-dose 75+ series)[facility]: 31-27-8688Kenyttdrdtyv Vaccine: 65+ Years (1 of 1 - PCV)Pneumococcal Vaccine: 65+ Years (1 of 1 - PCV)[facility] HealthcareStart: 61-69-0796Ykquyhsyl for osteoporosisDEXA (modify frequency per FRAX score)[facility]: 00-18-5683Jzuqlkupzwou 50+ years Vaccine (1 of 1 - PCV)Pneumococcal 50+ years Vaccine (1 of 1 - PCV)[facility]: 81-43-0885Ogpqfsso vaccine (1 of 2)Shingles vaccine (1 of 2) [facility]: 05-91-2484Korhrwqft for malignant neoplasm of colonSp[facility]ylvania [facility]: 42-04-6834Atmug panelLipidsSpotsylvania Regional Medical Center: 68-10-4510QQmJ/Tdap/Td vaccine (1 - Tdap)DTaP/Tdap/Td vaccine (1 - Tdap)[facility]: 29-88-2550Vxxchhisl C screeningHepatitis C screenSpotsylvania Regional Medical Center: 64-78-0486Bstauawdlx ScreenDepression ScreenSpotsylvania Regional Medical Center: 15-26-6145Dzyljosol for malignant neoplasm of colonNOMetropolitan Saint Louis Psychiatric Center End: 56-00-8256Fkzkgfr, UrineBon [facility] on above:1 Occurrences starting 06/11/2024 until 06/11/2024 End: 65-30-1727Uwklmiuojk and HematocritHemoglobin and Hematocrit Lab Routine One Time for 1 Occurrences starting 06/03/2024 until 5[facility] on above:One Time for 1 Occurrences starting 06/03/2024 until 06/03/2024 End: 07-33-3434KURNUFJQ PACU OXYGEN THERAPY PROTOCOLInitiate PACU Oxygen Therapy Protocol Respiratory Care Routine Continuous until discontinued starting 06/03/2024 [facility] on above:Continuous until discontinued starting 06/03/2024Oxygen therapy [Minimum Data Set]Initiate Oxygen Therapy Protocol Respiratory Care Routine As Needed until discontinued starting 05/25 [employer]: Comment on above:As Needed until discontinued starting 06/03/2024Pathology studySurgical Pathology Lab Routine Vaginal vault prolapse Midline cystocele Unspecified urinary incontinence Urethral sphincter deficiency, intrinsic (ISD) Release Upon Ordering for 1 Occurrences starting 06/03/2024 [employer] Phone: comment on above:Release Upon Ordering for 1 Occurrences starting 06/03/2024 End: 76-58-0467Rgilwsgys, urine POCTPregnancy, urine POCT Point of Care Testing Routine One Time for 1 Occurrences starting 06/03/2024 until 06/03/2024 Scayl on above:One Time for 1 Occurrences starting 06/03/2024 until 06/03/2024 End: 90-51-9489TSGTQVCM PATHOLOGY REPORTSURGICAL PATHOLOGY REPORT Lab Routine Once for 1 Occurrences starting 06/03/2024 until 06/03/2024 ADPCedar County Memorial HospitalMusical Sneakers on above:Once for 1 Occurrences starting 06/03/2024 until 06/03/2024 Immunizations Immunization DateImmunizationNotesCare HiaywpywLqqueysn31-90-7997uuhtcamtr virus vaccine, unspecified formulationNicole Andrzej DO Work Phone: [facility] Payers DatePayer CategoryPayerPolicy [id number] OTHER [id number] 2014MedicareMEDICARE ..[id number] [id number] [id number] 2..[id number] 2..1.136258.3.57[id number] 2..1.093431.3.57[id number] 2..1.181016.3.57[id number] 2..1.238176.3.57[id number] 2..1.702285.3.57[id number] 2..1.106319.3.57[id number] 2.0.1.131389.3.57[id number] 2..1.468673.3.57[id number] 2.16.840.1.065072.3.579.[id number] 2.16840.1.050049.3.579.2.[id number] 2.16840.1.056866.3.579.[id number] 2.16840.1.951093.3.579.[id number] 2.16840.1.281200.3.579.2.4672 [id number] 2.0.1.286778.3.579.[id number] 2.0.1.207308.3.579.2.812408-84-7847Hfhveex700373 2.16840.1.370439.3.579.[id number] 2.840.1.497105.3.579.2.2[id number] 2.0.1.068797.3.579.2.09125-76-8123Qhonwif807300030 2.840.1.846078.3.579.[id number] 2.840.1.071336.3.579.2.73[id number] 2.16840.1.746009.3.579.2.71[id number] 2.16840.1.827324.[id number] 2.16.840.1.298026.19Unknown [id number] 2.16.840.1.171978.3.579.2.633Tgfmhux98219587 2.16.840.1.04339[id number] 2.16.840.1.237673.3.579.2.531 [id number] 2.16.840.1.710023.3.579.2.531 Social History DateTypeDetailFacilityStart: 04-04-2023 End: 79-84-8597Tsn Assigned At [facility] [employer] Other Start: 11-30-2022 End: 49-74-6654Senslaz smoking status NHISNever smoked tobaccoNOMS Healthcare Start: 04-04-2023 End: 17-61-7188Dygfokp of Social functionNOMS HealthcareStart: 43-02-1138Jtq assigned at birthNot on fileNOMS HealthcareStart: 02-13-2024 End: 91-86-6639Ipytlek use and exposureSmokeless tobacco non-userNOMS Healthcare Start: 06-03-2024 End: 31-07-6625Afbzpixsc beverage intakeCurrent drinker of alcohol (finding)BuysightPhysical abuseDeniesBon [facility] CampusRadar [employer] [facility] HospitalStart: 08-62-3044Kabxyfk Commentnot dailyBon [employer] [facility] HospitalStart: 58-72-1537Eux assigned at birthFemaleBon [employer] [facility] HospitalStart: 46-67-0813ZqrXkyorf (finding)[employer] [facility]Start: 39-12-2990Gztwhl identityIdentifies as female gender (finding)[facility] [employer] [facility] HospitalStart: 72-75-0944Ndxdlg orientationHeterosexual (finding)[employer] [facility] [employer] Procedure CodeEquipment CodeEquipment Original TextEquipment IdentifierDates System Bulking Prc Bulkamid Urethral - [id number]: 06-03-2024 Clinical Notes 04-22-2022 to 12-19-2024 Note Date & [id number] NoteSubjective Patient ID: Glenis Perez is a 74 y.o. female who presents for Hypertension, 1 year follow up, Nonsustained ventricular tachycardia, Hyperlipidemia, and Sleep Apnea. OK, no problems Has had PVCs and NSVT, states she could barely feel them. BP is well controlled I am better at home 117/69, 109/59 Hypertension Pertinent negatives include no chest pain or shortness of breath. Hyperlipidemia Pertinent negatives include no chest pain or shortness of breath. Review of Systems Respiratory: Negative for shortness of breath. Cardiovascular: Negative for chest pain. Neurological: Negative for dizziness, seizures and syncope. Objective Visit Vitals BP 131/80 (BP Location: Left arm, Patient Position: Sitting) Pulse 52 Physical Exam Constitutional: Appearance: Normal appearance. HENT: Head: Normocephalic and atraumatic. Cardiovascular: Rate and Rhythm: Normal rate and regular rhythm. Pulmonary: Effort: Pulmonary effort is normal. Breath sounds: Normal breath sounds. Skin: General: Skin is warm and dry. Neurological: General: No focal deficit present. Mental Status: She is alert and oriented to person, place, and time. Mental status is at baseline. Assessment/Plan Mrs Perez is doing well and is asymptomatic for PVCs and NSVT. BP is well controlled as well. At this point I don't see a need for her to have continued cardiology visits but will be happy to see her if that is helpful or an issue arises. Diagnosis Plan 1. Ventricular premature beats 2. Primary hypertension No orders of the defined types were placed in this encounter. No results found for this or any previous visit (from the past 36 hours). No follow-ups on file[facility] Hospital course Narrative* Cassie Llanos, RANGE CONSERVATIONIST - 12/11/2024 10:00 AM EDT Images from the original note were not included. Physical Therapy Treatment/Discharge Note [facility] Pelvic Floor Rehabilitation and Therapy [address] P: [phone] F: [phone] Date: 12/11/2024 Patient: Glenis Perez : 1950 Referring Provider: Chantelle Day DO Insurance/Therapy Benefits: Medicare- 20% co-ins, $257 ded/met, no co-pay. Follow Medicare guidelines. [employer] Life [employer]- covers the 20% left by Medicare. Follow Medicare guidelines. Medical Diagnosis: R32 (ICD-10-CM) - Urinary incontinence, unspecified type Rehab Codes: Rehab Diagnosis ICD-10 Yes Muscle weakness M62.81 [x] Lack of coordination R27.8 [] Muscle spasm M62.838 [] Pelvic pain R10.2 [] Lumbar pain M54.59 [] Generalized abdominal pain R10.84 [] Rectal pain K62.89 [] Mixed stress and urge incontinence N39.46 [] Stress incontinence N39.3 [x] Urge incontinence N39.41 [] Fecal incontinence R15.9 [] Dyspareunia N94.1 [] Urgency of urination R39.15 [x] Frequency of urination R35.0 [] Post void dribbling N39.43 [] Scar condition and fibrosis of skin L90.5 [] Constipation K59.0 [] Rectocele N81.6 [] Cystocele N81.1 [] Uterovaginal prolapse N81.2 [] [] [] Onset Date: 06/03/2024 Next 's appt.: Fall 2024 Cancels/No Shows: 0 Subjective: Glenis Perez (: 1950 is a 74 y.o. y.o. female ,.Pt states she is voiding every 2-3 hours during the day and getting up 0-1 time at night. No longer drinking ice tea still drinking 2 cups of coffee in the am and 1 cup at 3pm suggested to continue to decrease caffeine or drink decaf. Pt states she is using 1 pad during the day and 1 pad overnight (does not have leakage at night but more a safety blanket.) Pain: [] Yes [x] No Location: n/a Pain Rating: (0-10 scale) 0/10 Pain altered Tx: [x] No [] Yes Action: Objective: Precautions [x] No [] Yes: BFB in sitting with an anterior pelvic tilt to recruit and initiate anterior PFM 01/31/10=5.0/2.7 fair contraction with slight VC for proper recruitment, fair endurance and fair breathing BFB in standing with an anterior pelvic tilt to recruit and initiate anterior PFM =4.9/3.4 fair contraction with slight VC for proper recruitment, fair endurance and fair breathing Fair activation and fair relaxation Added bridging with proper bracing and breathing Added TA activation Bracing with activities Treatment: There-Act: 23 MIN Reviewed POC and HEP. Proper recruitment for kegels in sitting and standing, added bridging and TA activation with proper breathing and bracing, bracing with activities Neuromuscular Herman: 30MIN Bio-feed back sitting, standing Assessment: Pt demonstrated fair awareness of PFM with minimal VC for proper recruitment and sub max contraction. Pt will be discharged from PT at this time to her HEP and will return in March for a follow up GOALS: To be met in 3 visits Functional Goals Progress Functional pelvic floor strength, endurance, and coordination for decreased urinary incontinence and sense of urgency by 80% per patient report Goal met Decreased need for pads to 0-1 in a 24-hour. Partially met 1 pad during the day and 1 pad at night Patient be independent with urge suppression techniques and pelvic brace with her gardening, balance activities, and going up and down curbs. Goal met Patient education: [x] Yes [] No [] Reviewed Prior HEP/Ed Pt given home program education re:Reviewed POC and HEP. Proper recruitment for kegels in sitting and standing, added bridging and TA activation with proper breathing and bracing, bracing with activities Method of Education: [x] Verbal [x] Demo [x] Written Comprehension of Education: [] Verbalizes understanding. [] Demonstrates understanding. [] Needs review. [x] Demonstrates/verbalizes HEP/Ed previously given. Plan: Pt will be discharged to her HEP and will return in March for a follow up Treatment Charges: Mins Units Time in/out (workers comp and [place]/BCBS) [] Modalities [] Ther Exercise [] Manual Therapy [x] Ther Activities 23 2 [x] Neuro-herman 30 2 [] Other Total Treatment time 53 4 Time In:10:00am Time Out: 11:00am Cosigned by Tasha Cedeno, PT at 12/11/2024 2:11 PM EDT documented in this encounterBon [facility] Discharge instructions* Discharge Instructions* Yaneth Pacheco RN - 05/12/2024 9:53 PM EST Images from the original note were not included. [facility] UROGYNECOLOGY & PELVIC REHABILITATION POSTOPERATIVE PATIENT INSTRUCTIONS MAJOR & MINOR SURGICAL PROCEDURES Congratulations! You have taken the brave step of undergoing surgery in order to try to improve your health. Now it is time to focus on healing outside of the hospital / surgery center setting. To make your dismissal as successful as possible, it is recommended that you thoroughly review these postoperative instructions. These instructions pertain to, but are not limited to the following procedures: MAJOR Hysterectomy - Vaginal / Laparoscopic / Robotic With or Without tube-ovarian Removal (Salpingo-oophorectomy) Sacrocolpopexy / Sacroperineopexy / Sacrocervicopexy/ Hysteropexy (lifting apex to sacrum) Major Vaginal Prolapse repairs Cystocele repair (Anterior Colporrhaphy) Rectocele repair (Posterior Colporrhaphy) Enterocele repair Vaginal vault repair Closing or removal of the vagina (Colpocleisis / Colpectomy) Major urinary incontinence surgery (Flores Urethropexy, MMK) Major fibroid removal (Myomectomy) Major tubal surgery (re-anastomosis, ectopic , pelvic inflammatory disease) Major surgery for adhesions or endometriosis involving bowel Major vaginal mesh removal Fistula repair of the bladder or colorectum to the vagina Creation of a new vagina (Neovaginoplasty) or repair of a Mullerian Anomaly Other MINOR Hysteroscopy with Dilatation / Curettage, Endometrial Ablation / Hysterosalpingogram (HSG) Laparoscopy With or Without minor tubal or ovarian surgery Minor Vaginal Prolapse repairs Cystocele repair (Anterior Colporrhaphy) Rectocele repair (Posterior Colporrhaphy) Urethrocele repair Minor urinary incontinence surgery (Slings, Transurethral Bulking) Minor vaginal surgery (Mesh removal, Laser ablation, Biopsies, Labial revisions, Injections) Minor surgery of the bladder (DMSO, Hydrodistention, Botox, etc.) Neuromodulation Other 1 2 POST OPERATIVE BASIC INSTRUCTIONS The office will call on the Monday, or within 1 week, after your surgery to make sure you are doingwell and to answer questions. Your 1st post-op visit will occur within 1-2 weeks after your surgery. Your final post-op visit will occur @ 4-6 weeks depending on the surgery & your desire to return to work. Your surgery and recovery may require more visits in between the 1st and final visits. DO'S, DONT'S, & WHEN TO CALL As reviewed with you on the morning of your discharge, for the 1st week out of surgery below is a QUICK list of DO's, DONT's, and WHEN TO CALL: 5 THINGS YOU MAY DO 5 THINGS YOU MAY NOT DO FOR 4-8 WEEKS -Shower with Ivory Soap and water -Tub bathe, hot tub, or swim -Gradually increase walking - Heavy lifting > 15lbs (2 gallons worth) -Go up and down stairs slowly - Insert anything into the vagina (sex, douching, tampons) -Light housecleaning (dusting, dishwashing) - Drive a car / motorcycle (*See Special Considerations) -Short local travel (restaurant, sabianism) - Long distance travel > 1.5 hours (*See Special Considerations) 5 SYMPTOMS TO CALL FOR: -Sustained fever >100.4 despite Tylenol or a cold shower, especially associated with redness of incision/s -Pain out of the ordinary (>7) despite pain meds / anti-inflammatories -Heavy vaginal bleeding > 1 pad / hour with large red clots -Inability to eliminate urine (especially if catheterized) or flatus / stool (with sustained distention & nausea) -Calf pain or extreme shortness of breath QUESTIONS, CONCERNS, EMERGENCIES Please call the office with any questions or concerns. [phone]. If during office hours, your issue may require an appointment. If after hours, the answering service will connect you with the physician [employer]. If you are concerned that your issue may be emergent, PLEASE CALL FIRST. Many issues may be resolved over the phone and avoid an unnecessary and expensive ER visit. If you truly have an emergency related to the surgery and call first: *You will be directed to the hospital ER in which you had your surgery. [facility] primarily or [facility] rarely. [facility] patients may be asked to report to [facility] if Dr. Day's on-call partner is assuming responsibility. ER visits are ALWAYS covered by insurance (i.e. [facility] can go to a [place] ER.) Calling 1st expedites your care & avoids an unnecessary and costly ambulance transfer to the Hospital. Dial 911 or go to your closest ER if your emergency is related to a potential heart attack or stroke. 3 DISCHARGE MEDICINES [place] 325/5mg tablets or alternative narcotic. Take 1-2 tablets by mouth every 4-6 hours as needed for pain. Per [facility] Board of Pharmacy laws, only 1 week of narcotics may be prescribed at a time. Do not take extra Tylenol (Acetaminophen) orally as [place] already contains the medicine. May take 500mg orally every 4-6 hours if off of [place]. * Ibuprofen 400-800mg is safe to take. Take 1 tablet by mouth every 8 hours for inflammation. Senokot - S. Take two tablets by mouth every night to prevent constipation. Stop if loose stools occur. If an antibiotic is required: Keflex 250-500mg take 1 tablet by mouth 3x / day as prescribed OR Cipro 250-500mg take 1 tablet by mouth 2x / day as prescribed Other medicines may be prescribed based on your post-op course or situation. Zofran 4mg for nausea,Flomax 0.4mg for voiding *You may resume taking any medications you were taking before your surgery, unless told otherwise. DUE TO BLEEDING RISK, DO NOT RESUME HOME ANTICOAGULANTS UNTIL DIRECTED SPECIAL CONSIDERATIONS After surgery, give yourself a chance to adjust and recover. Some patients feel fine within a month. Many need a little extra time. Do not be concerned if you feel fatigued for the first month, your body is recovering. It may take several weeks for you to get your energy back. Even if energy has returned, please do not be tempted to re-engage in strenuous activity. Although mild weight gain is not uncommon, most of it is IV fluid weight that your body will remove with time. You have the rest ofyour life to exercise, so some patience and rest is gotti in the short term in order to heal successfully in the [facility]. Once you have fully recovered, you may focus on enjoying your life. Keep in mind, you will continue to heal for 6-12 months after surgery, so use common sense to protect your surgery (avoid repetitive heavy lifting, constipation, chronic pelvic strain.) In particular, if you had a hysterectomy, you may have both physical and emotional effects that maybe brief or intermediate manager. After hysterectomy, periods will stop, and a woman can no longer achieve . Despite popular myth, post-hysterectomy weight gain is not due to the hysterectomy but is usually a result of other factors. A depressive emotional reaction to loss of the uterus is not uncommon or abnormal. Please discuss any concerns with your health care provider if persistent. Sexual response may change after hysterectomy. There are no definitive studies showing decreased orgasmic potential post-hysterectomy. Some women have a heightened response due to correcting painful pathology. O varian removal may decrease estrogenization, leading to vaginal dryness and menopausal hot flashes.Hormonal therapy may need to be discussed. SOME SURGERIES HAVE SPECIAL CONSIDERATIONS MAJOR For all major surgeries listed above, you may drive after your 1week post-op visit if cleared, havediscontinued narcotic pain meds, and are able to depress the brake quickly without pain. Long distance travel may be resumed in 4 weeks if stable. With major robotic hysterectomy, you should refrain from intercourse for 8 weeks, other hysterectomies 6 weeks. MINOR Minor surgeries may drive the next day any distance if off narcotic pain meds and are able to brakesafely. For minor vaginal surgeries for prolapse and / or urinary incontinence procedures, maintain pelvic rest for 4 weeks. Exercise and work may be resumed within 2-4 weeks depending on healing. For minor surgeries of the vagina, uterus, and bladder, hysteroscopy, D&C, and laparoscopy, maintain pelvic rest for 1-2 weeks depending on healing. Exercise and work may be resumed within the week. 4 CONSENT ITEMS REVISITED IN THE POST OPERATIVE PERIOD Physical and sexual activity will be restricted to varying degrees for an indeterminate period of time, but most often 2-8 weeks depending on the breadth of surgery. It is impossible to list every undesirable effect. The condition for which surgery is done is not always cured or significantly improved, and in rare cases may even worsen. There is no 100% guarantee that the planned surgery, despite everything being done correctly and tothe medico-surgical standard, with resolve a condition 100% including but not limited to pain, prolapse, mesh erosion, urinary infections, bladder function, or defecatory dysfunction. Specifically, up to 20% of patients with abdominopelvic pain, 27% of those with UTI's, 16-26% with urinary incontinence or voiding dysfunction, and 40% with defecatory dysfunction may not see substantial long-lasting improvement from a surgical intervention. Dangerous blood clots in the legs or lungs may occur post-operatively. Patients on chronic blood thinners, particularly those without antidote, may be at significant risk of bleeding, hemorrhage, hematoma formation, need for transfusion, and over the regular population. Life-threatening bleeding complications may even occur up to 4 weeks out of surgery even if anticoagulation is managed appropriately. If the patient has been taken off anticoagulation because of bleeding, this could exposeher to life-threatening blood clots in the legs or lungs, NC, or stroke. Elderly patients over the age of 70 may experience up to a 2-4% mortality rate in the postsurgical period related to comorbidities and declining health. A living will and code status is recommended to be reviewed. For major outpatient procedures requiring less than a 24 hour stay, you will be dismissed from the hospital or surgery setting when stable and meets criteria for discharge. Less than 5% of patients may rebound to an emergency setting for some of the risks mentioned above even though they have met criteria for dismissal earlier. Outpatient surgical recovery usually occurs between 2 and 4 weeks. For major inpatient procedures requiring an average 0-2-day hospital stay, the patient may not be fully recovered from major surgery for up to 6-8 weeks. Please understand with Medicare and insurance regulations, only 1 night will be approved for most reconstructive or robotic procedures. In regard to reconstructive pelvic and incontinence surgery: Approximately 85% of patients experience a reasonable improvement >5 years in pelvic support andurinary/fecal incontinence, as well as urinary infections, after the procedure. There is a long-term risk of recurrent prolapse in up to 30% of women who have undergone reconstructive surgery if healthy lifestyle behaviors are not maintained. This includes but is not limited to good nutrition, smoking cessation, weight loss in the obese, reduction in heavy lifting, exercise, fall prevention, and bowel regularity. Reconstructive pelvic and/or urinary/fecal incontinence surgeries may only improveyour condition/s mildly and may not completely resolve problems including but not limited to urinary tract infections and/or defecatory dysfunction. 17% of patients may still get a urinary tract infection and 40-60% of patients may still experience constipation postoperatively. It may be hard to urinate for a few days or weeks. Sometimes, up to 40% of women cannot urinate efficiently after surgery due to swelling, anesthesia, or pain. Prolonged urinary retention may rarely occur after an incontinence or pelvic prolapse surgery and is more likely if retention predates surgery or includes factors that are not limited to neuropathy, diabetes mellitus, or prior pelvic surgery. The patient may need a catheter to drain the bladder for 1-2 weeks on average. Patients in Dr. Day's practice most often prefer a transurethral Camacho. Other choices are a suprapubic catheter or intermittent self- catheterization. The patient has been given instructions on how to manage the typeof catheter chosen, which will be reiterated postoperatively. There is a 5% chance of recurrent retention after camacho removal requiring catheter replacement in the office or by ER. Despite evidence indicating no need for antibiotics with a catheter, real world experience shows a 20-40% rate of UTI with a Camacho catheter which depending on personal risk factors and extent of surgery, may require a prophylactic antibiotic afterwards. Antibiotics have risks of resistance, diarrhea, and C. difficileinfection. Suprapubic catheters carry a risk of urinoma, bowel injury, and bleeding and have a UTI risk of 15-20%. Intermittent self-catheterization carries an 11% risk of a UTI. In regard to labial or perineal reconstructive surgery: You should expect some bruising and mild swelling with related discomfort following these surgeriesthat lasts 1-2 weeks. Ice packs and sitz baths may be utilized after surgery to help minimize swelling and discomfort. Mild analgesics are also used. Final optimal results can usually be appreciated in several months. Most patients may return to work or school within a week after surgery; however, strenuous activity or tight clothing is discouraged, and patients must refrain from sexual intercourse for 4-6 weeks after surgery. You may receive a topical antibiotic, which reduces risk of infection. Mild bleeding is not uncommon and can occur postoperatively if strenuous activity or intercourse is begun too early. Problems with healing, such as incision separation, suture popping, scarring, and/or pain following the surgeryare rare but can happen. 5 SPECIAL INSTRUCTIONS IF MRSA POSITIVE * Continue Bactroban to the nares 2x / day for 1 week post-operatively. Since many people are colonized in the community, it is not something we will routinely culture for post-operatively. TO PREVENT BLOOD CLOTS IN THE LEGS OR LUNGS / PNEUMONIA IN THE LUNGS Regular walking or calf stretches and wearing a supportive hose may help prevent clots in the legs or lungs. Take home your incentive spirometer if given one and utilize it as instructed to prevent pneumonia Smoking cessation before and after surgery is strongly encouraged. VAGINAL BLEEDING & DISCHARGE You will likely experience light bleeding with the potential for small dime size clots, lasting 2-3weeks after your surgery. This should NOT be construed as heavy bleeding. You may notice an increase in vaginal discharge 4-6 weeks after your surgery, which may be watery, yellowish, or pinkish. It may have more of an acidic odor. This is common as the vagina flushes out edematous body fluid and dissolves the absorbable sutures. As the healing process progresses, you may experience mild itching within the vagina, as well as outside the vaginal opening. If this itching becomes severe, and/or is accompanied by a foul smell andswelling, please call the office. DRAINS & WOUND CARE If a drain or specific wound care appliance is present at the time of dismissal, please follow additional instructions that may be provided regarding maintenance of the device/s. Basic daily maintenance of a drain is as follows: You may wash around the drain site with warm, soapy water and pat dry with a towel. If indicated, use a topical antibiotic around the drain site 2x / day. Strip or milk the drain from the drain site to the bulb suction 3x / day. This clears any blockage from the drain. Simply pinch the drain at its insertion site into your body between your thumb and forefinger. Thensqueeze and pull the drainage tubing as you move towards the drain bulb, allowing the tube to slide between your fingers with mild resistance, you should see a suction effect within the drain tube that moves fluid toward the bulb. Please call the office immediately if the drain falls out or cannot maintain suction. Please call if redness of the drain site increases and is associated with fever, pain, or purulent discharge. CONSTIPATION * Patients are often constipated after a prolonged period of bed rest, or with the use of oral narcotic pain medications. If you have not had a bowel movement for 3 days after you are dismissed from the hospital, or are uncomfortable and unable to pass stool, please try one or all of the following measures in a stepwise manner 1-5 as needed for results: Eat fruits, vegetables, prunes & whole-grain foods. Drink 8 glasses of fluid daily. Add PlumSmart juice. Metamucil, FiberCon, or other bulking medication - use as directed Milk of magnesia - 30 mL's by mouth every 12 hours Dulcolax suppository - 1 suppository per rectum every 4-6 hours Fleets enema - use as directed unless told nothing per rectum (colorectal fistula repair) BLADDER DRAINAGE There is a >70% chance you will void on your own post-operatively. In particular, reconstructiveand incontinence surgeries (whether you had incontinence before surgery or not), sometimes have surgical effects of normal swelling and new positioning of the bladder may be associated with some mildto moderate postoperative urinary leakage. Often this leakage is urge related. As discussed, pre-operatively, up to 26% of patients with prolapse and negative urodynamic testing may develop de carol incontinence afterwards. Please do not be frustrated if temporary incontinence occurs for it will most likely improve as you continue to heal. Leakage rarely persists in the long-term, there are many options for treatment, and Dr. Day and his office staff are there to help you every step of the way. 6 7 BLADDER DRAINAGE FOR THOSE PATIENTS REQUIRING A CATHETER For some postoperative patients, it may be hard for you to urinate for a few days or weeks. Up to 30-40% of women cannot urinate efficiently after surgery due to swelling or anesthesia. This may lasta few hours to a few weeks. You may be required to use a catheter in your bladder to help it drain and retrain it to work properly. The most commonly used type of catheter, called an Intraurethral Camacho Catheter (IUC), is placed into the bladder through the urethra. This is usually reserved for large pelvic reconstructive surgeries and timely recovery. Some patients prefer to use a catheter intermittently to empty their bladder. This is called Intermittent Self-Catheterization (ISC). It is an easy technique to learn and helps to lessen the threat of urine infection. A third kind of catheter is called a Suprapubic Catheter (SPC). This catheter is placed through a small incision in the abdomen. A SPC is good for elderly patients or those who are obese and may not be able to insert a catheter, or for complex bladder surgery requiring delayed recovery. Other tubes may help drain fluid from your incision/s. Unless instructed to maintain a catheter to drainage or to rest, you will begin plugging or clamping your catheter in the hospital, and you will leave it plugged/ clamped for set intervals of time. Plugs or clamps will be provided by the nursing staff. You will continue this routine upon dismissal.While your catheter is plugged or clamped, the urine will not drain out of it, and your bladder will fill like it always has naturally. You will be sent home with a smaller day bag that straps to your leg for mobility plus a larger night bag to allow you to rest all night without the need to drain the bag, and cleansing supplies. Depending on the surgery, you will be able to remove your catheter at home within 1-7 days. If you have an Intraurethral Camacho Catheter, plugging / clamping of the catheter helps to wake up the bladder and increases capacity. By the time you come in for your 1st postoperative visit, 95% of patients will be ready to pass a voiding trial and have the catheter removed successfully. During daytime, try plugging until you are comfortably full, then drain your bladder through the catheter into the smaller bag. Your goal should be 2-4 hours of plugging between bladder emptying. You may put your catheter to drain at night into the larger bag. If you are performing Intermittent Self-Catheterization, you should attempt to urinate every hour or so and then catheterize at the end of the time interval to measure how much urine is left in the bladder by emptying the catheter into the measuring hat. If you have a Suprapubic Catheter, during the time that your catheter is plugged /clamped, you should attempt to urinate naturally every hour or so. At the end of the time interval, measure how much urine is left in the bladder by emptying the catheter into the measuring hat. 8 You will not begin progressing through the advancing intervals of the ISC or SPC routine until you are able to urinate normally through your urethra. Until this happens, you will repeat the 4 hour interval over and over. When you have started urinating normally, you will measure how much is left inyour bladder at the end of each interval and decide whether you may progress to the next time interval. Please see the respective catheterization routine pertinent to the type of catheter that you may have. Until the 12-hour interval is reached, the catheter should be hooked to the drainage bag every night to drain. After the 1st successful 24-hour interval, please call the office to update one of the nurses. Troubleshooting the Catheter It is not uncommon for the transurethral or suprapubic catheter to leak around the urethra or skin incision respectively as the bladder gets too full. If you have problems with this type of leaking, drain your bladder through the catheter. If leakage continues, reconnect your catheter to the Camacho bag until the next morning, then restart the plugging routine. Please call the office regarding any continued leakage problems. Removing the Catheter The catheter is held in place inside your bladder by a water-filled balloon. Cutting the collar (next to the end of the part you've been plugging) will cause the water inside the balloon to empty out, and the balloon will deflate. You may then remove the catheter by pulling on it gently. Things to Remember You do not need to measure how much you urinate. You need only to measure how much is left in your bladder (which gets drained from the catheter) at the end of the 4-12 hr. plugging / clamping interval. This is known as Residual Urine. You may find it easier to use the larger Camacho bag at night to collect your urine. The larger bag prevents you from having to get up at night to drain your bladder. If you use the Camacho bag, simply restart your most recent plugging interval when you wake up (for example, if you were at the 6-hour interval before bed, start at this interval routine in the morning.) The site where a catheter is inserted into the urethra or abdomen may become pinkish, purplish, or develop a pus-like or crusty substance around it. These are your body's reactions to the catheter's presence and is very normal. You may wash around the catheter daily with soap and water. Rinse and dry these areas well. You may shower while wearing the catheter. Maintain good personal hygiene. If this site develops a redness that spreads, or is warm and painful to the touch, please call the office immediately. When changing from one bag to another, using a clean leg bag or Camacho bag and an alcohol prep. Washyour hands thoroughly with soap and water and swab the end of the drainage tubing that will be attached to the Camacho catheter. Disconnect the drainage bag from the Camacho catheter and put the bag aside. Attach a clean bag to the catheter. Wash your hands thoroughly afterwards. To clean the bags simply empty the urine from the bag and leave the spout open for cleaning. Mix a cup of vinegar and cup of cool water and flush the bag using a 50 mL syringe, or by submerging the bag under the mixture. Once the bag is filled, close the spout, and allow the liquid to stay in the bag for 30 minutes. Drain the cleaning solution and rinse the bag again with tap water. Hang dry withthe cap off and the spout open. A commercially prepared urinary appliance chicken cleaner may also be used as instructed. It is important that when it is time to remove the catheter, do so in the morning, because you willneed to urinate every 30-60 minutes on the day that you remove it. This is to keep the bladder empty and compressed, and to allow itself to heal. This is especially important for the suprapubic incision for those with suprapubic catheters. After removing the suprapubic catheter in particular, coverthe site with a Band-Aid for the 1st 24-48 hours. Drink at least 2 quarts of liquid a day. Avoid caffeinated drinks as they may irritate the bladder and cause bladder spasms. Please remember to call the office once a week until the catheter is removed with an update on yourprogress. 9 HOW TO CARE FOR YOUR CAMACHO CATHETER - FEMALE About this Topic: Camacho catheter is a thin, flexible tube that drains urine from your bladder. The catheter connects to a special bag. The bag holds the urine until you are able to empty the bag. Youmay need to have a catheter for a short time. You may need a catheter after you are sick or have had surgery. Sometimes a catheter is used for a long time. What Will the Results Be: Your urine will drain and you will prevent infection. What Care is Needed at Home? Ask your doctor what you need to do when you go home. Make sure you ask questions if you do not understand what the doctor says. This way you will know what you need to do. Your doctor may order a home health nurse to come to your house to help you learn to care for your catheter. Prevent infections: Wash your hands before and after handling your catheter. If you switch between a leg bag and an overnight drainage bag, be sure you clean the connection between the catheter and the bag before you switch bags. Ask your doctor what to use to clean the connection. Place a cap on the drainage bag you are not using and store in a clean towel. Rinse the empty drainage bag not in use with 1 cup vinegar mixed with 1 cup water. Care for the tube: Wash the skin around the catheter with soap and water each day. Pat the skin dry. Do not put anything on the tube. Keep the tube secure. Do not let the tube pull or catch when you are moving around during the day. Do not let the tube kink or loop. Care for the Drainage Bag: Keep your urine bag below your bladder. Drain the bag often to help keep you from getting an infection. Wear cotton underwear. What Follow-Up Care Is Needed? Your doctor may ask you to make visits to the office to check on your progress. Be sure to keep these visits. 10 What Lifestyle Changes are Needed? Drink 6-8 glasses of water every day. Take showers rather than soaking in a bath. Will Physical Activity Be Limited? Talk to your doctor about what you can and cannot do when the catheter is in place. What Problems Could Happen? The catheter has a balloon to hold it inside the bladder. The balloon can break or leak and the catheter can fall out. Urine flow stops or is blocked by kinks or bends in the tube or if the drain bag is kept higher than your bladder. You may see blood in the collecting tube or bag. Bladder infection. When Do I Need To Call the Doctor? Signs of infection like a fever of 100.4F (38C) or higher, chills, pain around the catheter, redness or swelling of the skin around the catheter. Urine has blood and it is dark or coffee colored, or is pus-like. Tube comes out or urine stops flowing. Burning or painful feeling in your bladder. You are not feeling better in 2-3 days or you are feeling worse. Teach Back: Helping You Understand The Teach Back Method helps you understand the information we are giving you. The idea is simple. After talking with the staff, tell them in your own words what you were just told. This helps to makesure the staff has covered each thing clearly. It also helps to explain things that may have been abit confusing. Before going home, make sure you are able to do these: I can tell you about my condition. I can tell you how to prevent infection and care for the tube and bag of my Camacho catheter. I can tell you what I will do if my urine stops flowing or there is a burning or painful feeling inmy bladder. 11 At Home Voiding Trial & Intraurethral Camacho Catheter Discontinuation Instructions After your operation, you may experience swelling around the bladder and urethra. Swelling may limit the ability to pass urine naturally through your urethra for several days, thus requiring a temporary Intraurethral Catheter (IUC). If postoperative recovery proceeds in an uncomplicated manner, an at home Voiding Trial (VT) will allow you to easily remove your IUC at home before your 1st postoperative visit to the office. The IUC may be removed on different days depending on surgical intensity to give swelling enough time to resolve. There is the rare chance an IUC may be removed & have to be reinserted if a patient cannot void. If you wake up with an IUC or fail a postop Voiding Trial (VT), you will be sent home with an IUC WITH CLAMP, DAY & NIGHT BAG, & MEASURING HAT. 1. The postop VT allows you to void once postoperatively. If you void 150- 200mls, you pass! Otherwise it is best to go home with an IUC. 2. During the day, clamp the IUC for 3-4 hrs. to comfort, then drain into day bag and repeat. 3. The IUC may be changed to the larger night bag for drainage & sleep. An at home VT may be done in / for: DAY 1 ____ Outpatient industrial specialist surgeries, transurethral bulking injections, incontinence slings, vaginalmesh excisions, & routine hysterectomies DAY 3: __X__ Site specific cystocele, rectocele, enterocele, vaginal vault repairs, & robotic colpopexies / hysteropexy DAY 7: ____ Larger combined reconstructive procedures (ex: hysterectomy with repairs), Flores urethropexy, LeFort colpocleisis DO NOT ____ Fistula repairs, urethral reconstructions, & complex bladder repairs involving opening up the bladder REMOVE 1. Only do VT on WEEKDAYS 2. Grab IUC at the side port 3. Cut the port in half with scissors 4. Allow port to drain completely 5. Pull IUC out of your urethra BLADDER DRAINAGE INSTRUCTIONS Instructions for removing the IUC: If the IUC doesn't come out with gentle pulling, stop & callyour healthcare provider right away. Before 8AM on the weekday of the at home VT, disconnect & empty the bag of urine from the IUC. Enter your shower and stand over the drain. Wash your hands with soap and clean, running water. Dry them well. Gather your supplies. This includes scissors and waste-basket. Cut the balloon port on the catheter with the scissors as seen in the picture above. Wait as the water from the balloon empties out of the cut end of the port. Once the balloon is emptied, gently pull out the catheter. Put the used catheter in the waste-basket. Use the towel to wipe up any spilled water or urine if needed. Wash your hands again. You pass your at home VT if you void 150mls within 6 hrs. Call the office to update your voiding status at [phone]. If you cannot void within 6 hrs., call the office for an afternoon visit to learn intermittent self-catheterization (ISC). SPECIAL INSTRUCTIONS Call Dr. Day with the following problems: 1. Inability to remove the IUC. 2. You can't urinate within 8 hours after removing the catheter or the bladder is not emptying well. 3. Your belly (abdomen) is painful or bloated. 4. You see a lot of blood in the urine. Light bleeding for 24 hours is normal. 5. Symptoms of a urinary infection (pain, burning, urgency, frequency, or blood). 6. Fever greater than 100.4 F on 2 occasions 4 hours apart. 12 Intermittent Self-Catheterization (ISC) Instructions After your operation, you may experience swelling around the bladder and urethra. Swelling may limit the ability to pass urine naturally through your urethra. Intermittent Self-Catheterization (ISC) will allow you to pass your urine until this swelling subsides. This technique prevents discomfort from bladder over distention. By following the simple routine below, you will be able to use ISC to empty your bladder until yournatural ability to pass urine gradually returns. You will find that as your ability to pass urine naturally improves, the need for ISC will be less. On average, a woman should expect to have use ISC from 2 to 4 weeks. You may reuse catheters by cleaning them in hot soapy water if low on supplies. If you fail a postop Voiding Trial (VT), you will be sent home with an ISC protocol. The postop VT allows you to void once postoperatively. If you void 150-200mls, you pass! Otherwise it is best to go home with an ISC protocol. BLADDER DRAINAGE INSTRUCTIONS Attempt to pass urine naturally as often as you like. At first, do not be surprised if you cannot even pass urine in very small amounts. Try to void naturally immediately before each self-catheterization. 3. During the day, self-catheterize every 4 hours to ensure proper bladder emptying. Use your non-dominant hand to gently spread your labia and wipe your urethra with a soap wipe. Use your dominant hand to introduce the catheter into the urethra until urine flow starts and then stops. Measure the residual urine drained out of the catheter at the end of each interval. Use the measuring hat. If your catheterized amount is 400 ml or more, self- catheterize more often (every 2 -3 hours). Start out with a self-catheterization schedule of every 4 hours if possible. This is equivalent to self-catheterizing 6 - 8 times per day. When the amount catheterized is less than 150 ml on 2 occasions, increase your catheterization interval to every 6 hours, or 4 times per day. When the amount catheterized is less than 150 ml on 2 occasions, increase your catheterization interval to every 8 hours, or 3 times per day. When the amount catheterized is less than 150 ml on 2 occasions, increase your catheterization interval to every 12 hours, or 2 times per day. When the amount catheterized is less than 150 ml on 2 occasions, increase your catheterization interval to every 24 hours, or 1 time per day. Once the amount catheterized at the 24- hour interval is less than 150 ml on 1 occasion, self-catheterization may be stopped. SPECIAL INSTRUCTIONS Call Dr. Day with the following problems: 1. Inability to remove the IUC. 2. You can't urinate within 8 hours after removing the catheter or the bladder is not emptying well. 3. Your belly (abdomen) is painful or bloated. 4. You see a lot of blood in the urine. Light bleeding for 24 hours is normal. 5. Symptoms of a urinary infection (pain, burning, urgency, frequency, or blood). 6. Fever greater than 100.4 F on 2 occasions 4 hours apart. 13 [facility] Surgery for Stress Urinary Incontinence - Bulkamid Transurethral Bulking Injection Patient Information, Treatment, and Anticipated Pre-Operative / Recovery Plan What can I expect on the day of my treatment? The Bulkamid procedure is minimally invasive, with nocuts or incisions necessary, and typically takes about 10 minutes to perform. The procedure usuallytakes place in an outpatient clinic or day surgery unit and you will normally be able to go home onthe same day. Prior to the procedure, your doctor will discuss whether you should have a local or general anesthetic to reduce any discomfort associated with the procedure. Most patients will undergoa Bulkamid procedure under local anesthetic and will feel no more than a slight scratch as the needle enters the urethral wall. During the procedure, a urethroscope will be inserted into the urethra, allowing the procedure to be completed under constant visualization. Three or four deposits of Bulkamid (1.5 - 2 mL total volume, equivalent to slightly less than half a teaspoon) will be placed intothe urethral tissue to narrow the lumen of the urethra and allow for closure during activity or exertion, thus preventing the leakage of urine. The urethroscope is removed after the injection is complete and your treatment is finished. What can I expect after the procedure? After the procedure, your ability to empty your bladder willbe checked prior to leaving the clinic. Some patients will have a slow stream, spray urine when voiding, have mild discomfort when voiding, or have small traces of blood in the urine. If you cannot pass urine, a catheter may be required for a short period (normally less than 24-48 hours) to allow emptying of the bladder. This is an uncommon complication. Once at home, the majority of patients return to normal activities within 24-48 hours, depending on their doctor's advice. Until that time, please refrain from heavy lifting over 18 pounds, heavy exercise like Crossfit or bicycling, sexual int ercourse, and swimming or tub bathing. After Surgery - For Isolated Bulkamid Injection ONLY *The length of your hospital stay can vary, but is typically 1-2 hours. *Perform breathing exercises every hour while awake in the hospital to keep lungs clear of excess fluid; walking with assistance later in the day of surgery can help prevent blood clot formation. *Normal activities, including sex, can be resumed in 1day in most cases; meanwhile, do not place anything in the vagina. *Resume physical activities slowly. No restrictions! *Use cold packs to the surgical site to reduce swelling. 10 minutes on / 10 minutes off to prevent frostbite. *Bety-care bottles may be used to cleanse the operative site. Pat dry gently with a towel. *Rest off your feet in the afternoon when swelling becomes more pronounced from daytime activity. *Elevate your pelvis when reclining to allow venous engorgement to reduce until urinating well. *To avoid constipation eat fruits, vegetables & whole-grain foods. Drink 8 glasses of fluid daily. *You may drive after 1-2 days if you feel up to it, have discontinued narcotic pain meds, and can press on the brake quickly without pain. *Do not lift more than 25 lbs. until after your 1 month appointment; when you can return to work depends on your responsibilities - typically there is no need to take time off work. *You will be seen in the office at 4 weeks postoperatively and as needed. Activity You have had anesthesia today Do not drive, operate heavy equipment, consume alcoholic beverages, or make any important decisionsfor 24 hours If you are taking pain medication: Do not drive or consume alcohol. Take your time changing positions today. You may feel light headed or dizzy if you move too quickly. Continue your home medications as ordered by your physician. Diet You can eat your normal diet when you feel well. You should start off with bland foods like chickensoup, toast, or yogurt. Then advance as tolerated. Drink plenty of fluids (unless your doctor tells you not to). Your urine should be very lightly colored without a strong odor. [facility] History of Present illness Narrative* Neftali Morfin RN - 05/06/2024 11:44 AM EST Preoperative Instructions: Stop eating solid foods at midnight the night prior to your surgery. Stop drinking clear liquids at midnight the night prior to your surgery. Arrive at the surgery center (3rd entrance) on ___[id number] by [phone] . Please stop any blood thinning medications as directed by your surgeon or prescribing physician. Failure to stop certain medications may interfere with your scheduled surgery. These may include: Aspirin, Coumadin, Plavix, NSAIDS (Motrin, Aleve, Advil, Mobic, Celebrex), Eliquis, Pradaxa, Xarelto, Fish oil, and herbal supplements. HOLD Aspirin as discussed with surgeon. You may continue the rest of your medications through the night before surgery unless instructed otherwise. Day of surgery please take only the following medication(s) with a small sip of water:Carvedilol, Omeprazole Please bring cpap unit day of surgery in case it is needed. Please shower with an antibacterial soap and water the day before and the morning of surgery. Reminders: -If you are going home the day of your procedure, you will need a family member or friend to stay during the procedure and drive you home after your procedure. Your tank wagon driver must be 18 years of age or older and able to sign off on your discharge instructions. -If you are going home the same day of your surgery, someone must remain with you for the first 24 hours after your surgery if you receive sedation or anesthesia. -Please do not wear any jewelery ., lotions, or body piercing the day of surgery [facility] of Present illness Narrative* Ernie Donnelly, - 03/20/2024 11:15 AM EST Images from the original note were not included. Chief Complaint Patient presents with Sleep Apnea Subjective Glenis Casillas Chris, 73 y.o., female HPI The patient is wearing her machine nightly. She denies any issues with her machine. She states thatshe is sleeping well. NO issues with the mask or the machine. She is feeling rested. She can take a little rest after supper. She has been having bladder infections about monthly and is seeing the urologist. Past Medical History: Diagnosis Date Arthritis Cystocele with prolapse HTN (hypertension) ([facility]) Vaginal prolapse Past Surgical History: Procedure Laterality [...] 58 minutes and residual AHI of 3.9. HerEpworth Sleepiness scale is a 11. Well and she needs a order for new supplies sent over. Plan: Compliance was reviewed and she was compliant. Her epworth's sleepines scale and an 11 The patient was counseled on proper sleep hygiene and adequate hours of sleep. The patient was counseled on the risks of stroke, NC, and sudden with RICK, along with the [...] to clinic: 3 mon documented in this encounterC[id number] NoteContinue carvedilol currently remains stable.[facility] Note Currently no concerning symptoms and patient denies any palpitations. Continue carvedilol 12.5 mg twice daily.[facility] 01-08-2024 NoteHypertension is well-controlled currently. Continue carvedilol and hydrochlorothiazide Renal function and electrolytes are normal She does admit to occasional lightheadedness with low blood pressure denies any syncope or near syncope. Admits that typical days she does not hydrate well enough and likes to drink ice tea therefore we discussed adequate hydration. [facility]09-16-2024 NotePt here for a one year follow up. Pt denies chest pain, palpatation, sob. Review of Systems Constitutional: Negative for chills, decreased appetite, fever and weight gain. Cardiovascular: Positive for leg swelling (swelling in left ankle). Negative for chest pain, dyspnea on exertion, irregular heartbeat, near-syncope, orthopnea, palpitations, paroxysmal nocturnal dyspnea and syncope. All other systems reviewed and are negative.[facility] 01-08-2024 NoteUTP CARDIOLOGY PROGRESS NOTE HPI: Glenis Perez is a 73 [...] enough and likes t (more content not included)...[facility]11-06-2023 Evaluation note* Encounter Date Diagnosis Assessment Notes Treatment Notes Treatment Clinical Notes Feb, Primary osteoarthritis of left k nee (ICD-10 - M17.12) Glenis presents today about 6 months weeks s/p left total knee arthroplasty. They are doing well. Physical exam is benign with a healthy appearing wound and range of motion of 0-125. She can continue toadvance activities as tolerated. I will plan to see her back at the 1 year anniversary as needed The patient has been involved in our cooperative treatment plan and agrees to move forward with treatment at this time. 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 She is progressing well from surgery. 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 Activity as tolerated. Call with questions/concerns. Provided AAOS hand out on hip conditioning and IT band exercises. 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 They are doing well. Physical exam is benign with a healthy appearing wound and range of motion of 3-95. They are still taking pain medication but we did discuss the weaning process today. They are anticoagulated appropriately without anysigns of deep vein thrombosis. We have given an order for outpatient therapy today. I will see themback at the 6-week anniversary from their surgery for reevaluation. No x- rays are needed at that time. The patient has been involved in our cooperative treatment plan and agrees to move forward with treatment at this time. Patient is progressing well. Continue physical therapy exercises and TKA precautions. Continue withmedications as prescribed. Instructed patient to call with any questions or concerns. 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 7 mm osteochondral injury medial femoral condyle. Tricompartmental osteoarthropathy most significant in the medial compartment SOFT TISSUES:Negative. No visible soft tissue swelling. EFFUSION:None visible. OTHER: Negative. IMPRESSION: Osteochondral injury medial femoral condyle Electronically authenticated by: LISET MEZA Date: 2022-06-22 17:46[facility]12-30-20[facility] Evaluation note* Encounter Date Diagnosis Assessment Notes Treatment Notes Treatment Clinical Notes Mar, Acute sinusitis, unspecified ( D-10 - J01.90) Advised patient that COVID/Influenza A/B/RSV [...] understanding and is agreeable to treatment plan Mar,ther viral agents as the cause of diseases classified elsewhere (ICD-10 - B97.89) Mar,Impacted cerumen, right ear (ICD-10 - H61.21) Ear [...] understanding and is agreeable to treatment plan Mar,Headache (ICD-10 - R51.9) [facility] Other Evaluation noteNo InformationNort [employer] Other Evaluation note* Diagnosis RICK (obstructive sleep apnea)- Primary Obstructive sleep apnea (adult) (pediatric) Hypersomnia Hypersomnia, unspecified Snoring Other dyspnea and respiratory abnormality documented in this encounter [facility] HealthcareEvaluation note* Diagnosis Post-op pain- Primary Other acute postoperative pain Vaginal vault prolapse Unspecified prolapse of vaginal ross Midline cystocele Cystocele, midline Unspecified urinary incontinence Urethral sphincter deficiency, intrinsic (ISD) Intrinsic (urethral) sphincter deficiency (ISD) S/p anterior vaginal repair, vagina vault repair, cysto, [employer] 06/03/24 Other postprocedural status documented in this encounter [facility] [employer] [facility] Diagnosis Abnormal urine Other nonspecific finding on examination of urine documented in this encounter [facility] [employer] [facility] general Narrative - Reported* Type Description Date Medical History hx of hypertension Surgical HistorytubiligationSurgical HistoryWisdom Tooth Extraction Hospitalization Historyvaginal child x 3 [facility] Other History general Narrative - Reported* Type Description Date Medical History hx of hypertension Medical HistoryPVCMedical Historyosteoarthritis of the left kneeSurgical History tubiligationSurgical HistoryWisdom Tooth ExtractionHospitalization History vaginal child x 3 [facility] Other Hisbwst general Narrative - Reported* Type Description Date Medical History hx of hypertension Medical HistoryPVCMedical Historyosteoarthritis of the left kneeSurgical History tubiligationSurgical HistoryWisdom Tooth ExtractionSurgical Historyleft total knee arthroplasty5/23/2023Hospitalization Historyvaginal child x 3 [facility] Other Reason for visit Narrative* Eval and Treat (Routine) - AuthorizedSpecialtyDiagnoses / ProceduresReferred By ContactReferred To ContactPhysical Therapy / Urogynecology Diagnoses Urinary incontinence, unspecified type Chantelle Day DO [address] [facility] [place] [address] Phone: tel: fax: [facility] [address] [place] [address] Phone: tel: fax: Referral IDStatusReasonStart DateExpiration DateVisits RequestedVisits [id number] Specialty Services Required [facility] Summary Purpose Family History No Family History [...] section and content) DATE CREATED AUTHOR 09/24/2020 [facility] DATE CREATED AUTHOR AUTHOR'S ORGANIZ ATION 11/18/2020 [facility] DATE CREATED AUTHOR AUTHOR'S ORGANIZ ATION 08/26/2022 [facility] DATE CREATED AUTHOR AUTHOR'S ORGANIZ ATION 05/13/2023 DATE CREATED AUTHOR AUTHOR'S ORGANIZ ATION 03/23/2024 [facility] DATE CREATED AUTHOR AUTHOR'S ORGANIZ ATION 12/13/[address] [facility] DATE CREATED AUTHOR AUTHOR'S ORGANIZ ATION 12/21/2024 [facility] REASON FOR VISIT (unrecogniz ed section and content) ReasonCommentsSleep ApneaSpecialtyDiagnoses / ProceduresReferred By Contact Referred To Contact Diagnoses Vaginal vault prolapse Midline cystocele Unspecified urinary incontinence Urethral sphincter deficiency, intrinsic (ISD) Vaginal vault prolapse [N81.9] Midline cystocele [N81.11] Unspecified urinary incontinence [R32] Urethral sphincter deficiency, intrinsic (ISD) [N36.42] Procedures LA ANTERIOR COLPORRAPHY RPR CYSTOCELE W/CYSTO LA COLPOPEXY VAGINAL INTRAPERITONEAL APPROACH LA CYSTOURETHROSCOPY LA NDSC NJX IMPLT MATRL URT&/BLDR NCK VAGINAL ANTERIOR REPAIR WITH CYSTOSCOPY; possible VAGINAL VAULT REPAIR VAGINAL ANTERIOR REPAIR WITH CYSTOSCOPY; possible VAGINAL VAULT REPAIR VAGINAL ANTERIOR REPAIR WITH CYSTOSCOPY; possible VAGINAL VAULT REPAIR CYSTOSCOPY [place] [address] [place] [address] [facility] [address] [place] [address] Referral IDStatusReasonStart DateExpiration DateVisits RequestedVisits [id number] Care Teams (unrecognized sec tion and content) Team MemberRelationshipSpecialtyStart DateEnd Date Jesse Mariano MD [address] [place] [address] [facility] - [facility]11/30/22Team MemberRelationshipSpecialtyStart DateEnd Date Jesse Mariano MD [address] [place] [address] [facility] - [facility] Medicine11/30/22Team MemberRelationshipSpecialtyStart DateEnd Date Jesse Mariano MD [address] [place] [phone] PCP - GeneralFamily Ipbznmsr53/17/24Team MemberRelationshipSpecialtyStart Date End Date Jesse Mariano MD [address] [place] [address] PCP - GeneralFamily Kllostnq85/17/24Team MemberRelationshipSpecialtyStart Date End Date Jesse Mariano MD [address] [place] [address] PCP - GeneralFami Ylpmthkj71/17/24Team MemberRelationshipSpecialtyStart Date End Date Jesse Mariano MD [address] [place] [address] PCP - GeneralFamily Whvxmqpx75/17/24 Ordered Prescriptions (unrec ognized section and content) PrescriptionSigDispensedRefillsStart DateEnd cephALEXin (KEFLEX) 250 MG capsule Take 1 capsule by mouth 3 times daily for 7 days 21 capsule ondansetron (ZOFRAN-ODT) 4 MG disintegrating tablet Take 1 tablet by mouth every 8 hours as needed for Nausea or Vomiting 30 tablet 06/03/2024 sennosides-docusate sodium (SENOKOT-S) 8.6-50 MG tablet Take 2 tablets by mouth 2 times daily as needed for Constipation 60 tablet oxyCODONE-acetaminophen (PERCOCET) 5-325 MG per tablet Indications:Post-op painTake 1 tablet by mouth every 6 hours as needed for Pain for up to 5 days. Take lowest dose possibleto manage pain Max Daily Amount: 4 tablets 10 tablet ibuprofen (ADVIL;MOTRIN) 600 MG tablet Take 1 tablet by mouth every 6 hours as needed for Pain 30 tablet cephALEXin (KEFLEX) 250 MG capsule Take 1 capsule by mouth 2 times daily for 7 days Take for 7 days if discharged home with a camacho catheter. Take for 3 days if discharged home without camacho catheter. 14 capsule Scheduled Active and Recently Administ ered Medications (unrecognized section and content) Medication Order/01/2025 ceFAZolin (ANCEF) 2000 mg in sterile water 20 mL IV syringe (COMPLETED) 2,000 mg, IntraVENous, ONCE, On Mon06/03/24 at 1000, For 1 dose, Administer over 5 mins. * 1200 (Given - Provider: Lisandro Valera RN) gabapentin (NEURONTIN) capsule 100 mg (COMPLETED) 100 mg, Oral, ONCE, 1 dose, On Mon06/03/24 at 1000 * 1006 (Given - Provider: Linda Friedman RN) Glycopyrrolate injection 0.4 mg 0.4 mg, IntraVENous, ONCE, 1 dose, On Mon06/03/24 at 1215, Give one time IVP for heart rate below 50, PACU only * 1215 (Due) phenazopyridine (PYRIDIUM) tablet 100 mg (COMPLETED) 100 mg, Oral, ONCE, 1 dose, On Mon06/03/24 at 1000, Take with food. May cause discoloration of urine. * 1006 (Given - Provider: Linda Friedman RN) sodium chloride flush 0.9 % injection 5-40 mL 5-40 mL, IntraVENous, EVERY 12 HOURS SCHEDULED (2 times per day), First dose on Mon06/03/24 at 1000, Until Discontinued, For Line Patency: Peripheral IV = 5 mL; Midline or Central Line = 10 mL/lumen.If following IV push medication, administer flush at same rate as the IV push. Flush volume is determined by type of infusion therapy being given. For non-viscous solutions use: Peripheral IV = 5 mL Midline or Central Line = 10 mL/lumen For viscous solutions (i.e. blood components, parenteral nutrition, contrast media, or after obtaining blood sample) use: Peripheral IV = 10 mL Midline or CentralLine = 20 mL/lumen, Pre-op (day of surgery) * 1000 (Due) * 2100 (Due) sodium chloride flush 0.9 % injection 5-40 mL 5-40 mL, IntraVENous, EVERY 12 HOURS SCHEDULED (2 times per day), First dose on Mon06/03/24 at 2100, Until Discontinued, For Line Patency: Peripheral IV = 5 mL; Midline or Central Line = 10 mL/lumen.If following IV push medication, administer flush at same rate as the IV push. Flush volume is determined by type of infusion therapy being given. For non-viscous solutions use: Peripheral IV = 5 mL Midline or Central Line = 10 mL/lumen For viscous solutions (i.e. blood components, parenteral nutrition, contrast media, or after obtaining blood sample) use: Peripheral IV = 10 mL Midline or CentralLine = 20 mL/lumen, PACU only * 2100 (Due) Medication Order/ lactated ringers infusion IntraVENous, at 125 mL/hr, CONTINUOUS, Starting on Mon06/03/24 at 1000, Pre-op (day of surgery) * 1013 (New Bag - Provider: Linda Friedman RN) Medication Order/ 0.9 % sodium chloride infusion IntraVENous, at 5-250 mL/hr, PRN, if patient receiving piggyback infusions and maintenance fluids are not ordered OR KVO fluids to protect IV site / prevent frequent line interruptions/ long duration, Starting on Mon06/03/24 at 0940, For piggyback infusion, administer at same rate as piggyback for a total of 25 mL. Enter 25 mL into dose field and piggyback rate into rate field of order. If piggyback is infusing at a rate less than 100 mL/hr, enter 25 mL into dose field and 100 mL/hr into rate field of order. For KVO fluids, enter rate of 20 mL/hr or less into rate field of order., Pre-op (dayof surgery) 0.9 % sodium chloride infusion IntraVENous, at 100 mL/hr, PRN, If patient receiving piggyback infusions without ordered maintenance IV fluids or with frequent/long duration piggyback infusions, Starting on Mon06/03/24 at 1157, Administer at the same rate as the piggyback being infused., PACU only diphenhydrAMINE (BENADRYL) injection 12.5 mg 12.5 mg, IntraVENous, ONCE PRN, 1 dose, Starting on Mon06/03/24 at 1157, Until Tu06/04/24 at 1157,Itching, PACU only hydrALAZINE (APRESOLINE) injection 10 mg(Linked Group 1) 10 mg, IntraVENous, EVERY 15 MIN PRN, 2 doses, Starting on Mon06/03/24 at 1157, Until Discontinued,for SBP greater than 180 mmHg for 2 consecutive measurements taken from different sites, If heart rate is greater than 60 bpm, hold hydralazine and use labetalol if ordered, otherwise contact provider. Inform provider if SBP is still greater than 180 mmHg 10 minutes after second antihypertensive dose is administered., PACU only HYDROmorphone (DILAUDID) injection 0.5 mg 0.5 mg, IntraVENous, EVERY 5 MIN PRN, 4 doses, Starting on Mon06/03/24 at 1157, Until Discontinued,Pain Severe (7-10), Phase I - Initial therapy for severe pain., PACU only * 1309 (Given - Provider: Yaneth Pacheco RN) ipratropium 0.5 mg-albuterol 2.5 mg (DUONEB) nebulizer solution 1 Dose 1 Dose, Inhalation, ONCE PRN, 1 dose, Starting on Mon06/03/24 at 1157, Until Mon06/04/24 at 1157, Shortness of Breath, Initiate RT Bronchodilator Protocol: No, PACU only labetalol (NORMODYNE;TRANDATE) injection 10 mg(Linked Group 1) 10 mg, IntraVENous, EVERY 15 MIN PRN, 2 doses, Starting on Mon06/03/24 at 1157, Until Discontinued,High Blood Pressure, for SBP greater than 180 mmHg for 2 consecutive measurements taken from different sites., If heart rate is 60 bpm or less hold labetalol and use hydralazine if ordered, otherwisecontact provider. Inform provider if SBP is still greater than 180 mmHg, 10 minutes after second antihypertensive dose is administered., PACU only lidocaine PF 1 % injection 1 mL 1 mL, IntraDERmal, ONCE PRN, 1 dose, Starting on Mon06/03/24 at 0940, Until Mon06/04/24 at 0940, IVstart, Pre-op (day of surgery) meperidine (DEMEROL) injection 12.5 mg 12.5 mg, IntraVENous, EVERY 5 MIN PRN, 2 doses, Starting on Mon06/03/24 at 1157, Until Discontinued, Shivering, , May give every 5 minutes to max of 25mg., PACU only metoclopramide (REGLAN) injection 10 mg 10 mg, IntraVENous, ONCE PRN, 1 dose, Starting on Mon06/03/24 at 1157, Until Mon06/04/24 at 1157, Nausea, Secondary antiemetic therapy., PACU only midazolam PF (VERSED) injection 2 mg 2 mg, IntraVENous, ONCE PRN, 1 dose, Starting on Mon06/03/24 at 1157, Until Mon06/04/24 at 1157, Anxiety, PACU only morphine (PF) injection 2 mg 2 mg, IntraVENous, EVERY 5 MIN PRN, 10 doses, Starting on Mon06/03/24 at 1157, Until Discontinued, Pain Moderate (4-6), Phase I - Initial therapy for moderate pain., PACU only naloxone 0.4 mg in 10 mL sodium chloride syringe IntraVENous, PRN, Opioid Reversal, Starting on Mon06/03/24 at 1157, PRN if respiratory rate is lessthan 6/min and patient is difficult to arouse then notify physician STAT. Mix 9 mL of sodium chloride 0.9% with 0.4 mg (1 mL) of naloxone (NARCAN) in 10 mL syringe. (Note: dilution is 0.04 mg/mL) Give 0.08 mg (2 mL of special dilution), slow IV push, repeat up to 0.4 mg (10 mL) or until patient is responsive to physical stimulation and respiratory rate is equal to or greater than 6 breaths/min. Continue to observe, if no response within 3 minutes of administration of 0.4 mg (10 mL) total, repeat dose (0.4 mg as administered previously). Concentration 0.04 mg/mL, PACU only ondansetron (ZOFRAN) injection 4 mg 4 mg, IntraVENous, ONCE PRN, 1 dose, Starting on Mon06/03/24 at 1157, Until Mon06/04/24 at 1157, Nausea, PACU only oxyCODONE-acetaminophen (PERCOCET) 5-325 MG per tablet 1 tablet (COMPLETED) 1 tablet, Oral, ONCE PRN, 1 dose, Starting on Mon06/03/24 at 1157, Until Mon06/03/24 at 1339, Pain Moderate (4-6), Maximum dose of acetaminophen is 4000 mg from all sources in 24 hours., PACU only * 1339 (Given - Provider: Yaneth Pacheco RN) oxyCODONE-acetaminophen (PERCOCET) 5-325 MG per tablet 2 tablet 2 tablet, Oral, ONCE PRN, 1 dose, Starting on Mon06/03/24 at 1157, Until Mon06/04/24 at 1157, Pain Severe (7-10), Maximum dose of acetaminophen is 4000 mg from all sources in 24 hours., PACU only sodium chloride flush 0.9 % injection 5-40 mL 5-40 mL, IntraVENous, PRN, Starting on Mon06/03/24 at 0940, Until Discontinued, Line Care, After every IV line use, For Line Patency: Peripheral IV = 5 mL; Midline or Central Line = 10 mL/lumen. If following IV push medication, administer flush at same rate as the IV push. Flush volume is determined by type of infusion therapy being given. For non-viscous solutions use: Peripheral IV = 5 mL Midline or Central Line = 10 mL/lumen For viscous solutions (i.e. blood components, parenteral nutrition,contrast media, or after obtaining blood sample) use: Peripheral IV = 10 mL Midline or Central Line= 20 mL/lumen, Pre-op (day of surgery) sodium chloride flush 0.9 % injection 5-40 mL 5-40 mL, IntraVENous, PRN, Starting on Mon06/03/24 at 1157, Until Discontinued, Line Care, After every IV line use, For Line Patency: Peripheral IV = 5 mL; Midline or Central Line = 10 mL/lumen. If following IV push medication, administer flush at same rate as the IV push. Flush volume is determined by type of infusion therapy being given. For non-viscous solutions use: Peripheral IV = 5 mL Midline or Central Line = 10 mL/lumen For viscous solutions (i.e. blood components, parenteral nutrition,contrast media, or after obtaining blood sample) use: Peripheral IV = 10 mL Midline or Central Line= 20 mL/lumen, PACU only Order Group 1: labetalol (NORMODYNE;TRANDATE) injection 10 mgJump to med 10 mg, IntraVENous, EVERY 15 MIN PRN, 2 doses, Starting on Mon06/03/24 at 1157, Until Discontinued,High Blood Pressure, for SBP greater than 180 mmHg for 2 consecutive measurements taken from different sites., If heart rate is 60 bpm or less hold labetalol and use hydralazine if ordered, otherwisecontact provider. Inform provider if SBP is still greater than 180 mmHg, 10 minutes after second antihypertensive dose is administered., PACU only Or hydrALAZINE (APRESOLINE) injection 10 mgJump to med 10 mg, IntraVENous, EVERY 15 MIN PRN, 2 doses, Starting on Mon06/03/24 at 1157, Until Discontinued,for SBP greater than 180 mmHg for 2 consecutive measurements taken from different sites, If heart rate is greater than 60 bpm, hold hydralazine and use labetalol if ordered, otherwise contact provider. Inform provider if SBP is still greater than 180 mmHg 10 minutes after second antihypertensive dose is administered., PACU only FOR RECORDS PERTAINING TO PATIENTS WHO ARE [...] BE BASED ON THE PRIMARY CLINICAL RECORDS. [employer] provides no warranty or guarantee of the accuracy or completeness of information in this [id number]
== END 2025-03-14 14:42 | disposition home or self-care (01) ==
LOC: FHNEUROLOG 14:41
PROVIDERS: PCP Family Medicine; Visit Provider Psychiatry & Neurology Neurology
DX: G47.33 Obstructive sleep apnea (adult) (pediatric) (principal)
CPT/HCPCS: G0463